=== PATIENT | male | born 1960 | race Caucasian/White ===

== ENCOUNTER 2019-06-07 12:14 | Emergency (ER) | payer SELFPAY ==
[2019-06-07] VITALS (32 sets, daily range): BP systolic 116–165; BP diastolic 79–107; PULSE 65–96; RESP 5–18; TEMP 36.9; O2SAT 91–99
--- NOTE | ~2019-06-07 | CT_ITS ---
EXAMINATION: CT abdomen pelvis wo con DATE: 06/07/2019 16:16 INDICATION: Abdominal pain TECHNIQUE: Computed tomography (CT) of the abdomen and pelvis was performed without intravenous contr ast. Automated exposure control and iterative reconstruction technique were employed. Exam dose: 151 3.85 mGy-cm total exam DLP. COMPARISON: None. FINDINGS: There is moderately prominent bilateral primarily dependent lower lobe atelectasis. Status post sternotomy. Coronary artery atherosclerosis. Small sliding hiatal hernia. There is a 5 mm upper pole nonobstructing right renal calculus. There is a 3 x 9 millimeter nonobstru cting mid right renal calculus and 2 mm nonobstructing lower pole right renal calculus. No left urina ry tract or right ureteral or urinary bladder calculus. No hydronephrosis of either kidney. There is approximately 11 mm lower pole left exophytic probable renal cyst. Otherwise no hepatic, splenic, pancreatic, and adrenal or renal space-occupying mass lesion is eviden t. There is mild peripancreatic fat stranding suggesting pancreatitis. No pancreatic calcifications. Splenic size is within normal range. Status post cholecystectomy. No bile duct or pancreatic duct dilatation is evident. Normal caliber of the abdominal aorta and iliac arteries, with atherosclerotic calcifications. No int raperitoneal or retroperitoneal or pelvic mass lesion or adenopathy or ascites is evident. Diverticulosis of the left colon; no CT evidence of diverticulitis. Normal appendix. No bowel obstruc tion or intraperitoneal free air. IMPRESSION: Mild peripancreatic fat stranding suggesting pancreatitis Small sliding hiatal hernia Status post cholecystectomy Nonobstructive right nephrolithiasis Left renal 11 mm exophytic cyst Diverticulosis of the left colon; no CT evidence of diverticulitis Reviewed, dictated and finalized at [facility] Reviewed, dictated and finalized at [facility].
[2019-06-07 12:24] LABS: Glucose Point of Care 372 (65-105)
--- NOTE | 2019-06-07 12:31 | ED.RECABL ---
HPI - Recheck/Abnormal Lab/Rx General Chief Complaint: Recheck/Abnormal Lab/Rx <Doc Currie DO - Last Filed: 06/07/19 15:52> Stated Complaint: high bs <Doc Currie DO - Last Filed: 06/07/19 15:52> Time Seen by Provider: 06/07/19 12:16 <Doc Currie DO - Last Filed: 06/07/19 15:52> Source: patient and RN notes reviewed <Doc Currie DO - Last Filed: 06/07/19 15:52> Mode of arrival: ambulatory <Doc Currie DO - Last Filed: 06/07/19 15:52> Limitations: no limitations <Doc Currie DO - Last Filed: 06/07/19 15:52> History of Present Illness HPI narrative: Pt is a 59 y/o male with a Hx of DM and HTN, who presents to the ED with c/o hyperglycemia. He notes that he lost his insurance at the end of April, and states that he has been without his normal medications for the past 3 weeks. Pt notes that he is prescribed Jardiance, Metformin, and Tresiba for his diabetes. Pt notes that his BS has been elevated recently, and states that his BS was too high for his home BS monitor to interpret this morning. He notes that he called his PCP due to his hyperglycemia, and states that he was advised to come to the ED. Pt reports constipation for the past week, but denies any fever or chills. According to the nurse, the pt also reports suicidal ideations. Thank states he has been having thoughts of harming himself for the past 2 weeks. Denies any plan and denies any attempt at harming himself <Doc Currie DO - Last Filed: 06/07/19 15:52> MD complaint: abnormal lab <Doc Currie DO - Last Filed: 06/07/19 15:52> Returns today for: other (elevated blood glucose on home blood glucose monitor) <Doc Currie DO - Last Filed: 06/07/19 15:52> Associated symptoms: other (constipation; suicidal ideations (per nurse)) <Doc Currie DO - Last Filed: 06/07/19 15:52> Related Data Allergies/Adverse Reactions: Allergies Allergy/AdvReac Type Severity Reaction Status Date / Time No Known Allergies Allergy Verified 06/07/19 12:43 <Doc Corey Currie Last Filed: 06/07/19 15:52> Review of Systems Review of Systems: All systems reviewed & are unremarkable except as noted in HPI and below <Doc Currie Last Filed: 06/07/19 15:52> Gastrointestinal: Gastrointestinal: Reports constipation <Doc Corey Currie - Last Filed: 06/07/19 15:52> Psychiatric: Psychiatric: Reports suicidal ideation <Doc Currie Last Filed: 06/07/19 15:52> [facility] Past Medical History Medical History: Medical History Diabetes HTN (hypertension) Hypothyroidism <Doc Currie Last Filed: 06/07/19 15:52> Surgical History Surgical History: Surgical History Hx of cholecystectomy <Doc Corey Currie Last Filed: 06/07/19 15:52> Social History Social History: Social History Smoking status: Never smoker <Doc Currie Last Filed: 06/07/19 15:52> Exam Narrative: Exam Narrative: APPEARANCE: No acute distress, nontoxic, resting in bed EYES: EOMI HEENT: Normocephalic, atraumatic, OMM RESPIRATORY: No respiratory distress Clear to auscultation bilaterally with no rhonchi wheezing or rales. CARDIOVASCULAR: Regular rate and rhythm without murmurs rubs or gallops. ABDOMINAL: Soft, nontender, nondistended, no rebound or guarding MUSCULOSKELETAl: Moves all extremities. No clubbing, cyanosis or edema. NEURO: Awake and alert. Following commands, speech normal, no focal deficits SKIN:: Warm, dry. No rashes lesions or abrasions PSYCHIATRIC: Positive suicidal ideation, denies homicidal ideation <Doc Currie - Last Filed: 06/07/19 15:52> Course Course Emergency Course: After numerous discussions with lab and numerous specimens sent, chelsea blanchard
[2019-06-07] MEDS: SODIUM CHLORIDE 0.9% IV 1,000 ML 999 ML IV CONT ×2 (12:47→14:44)
[2019-06-07 13:02] LABS: Basophils Absolute Auto 0.1 K/mm3 (0.0-0.1); Eosinophils Absolute Auto 0.1 K/mm3 (0-0.3); Eosinophils Percent Auto 1.9 % (0-4.4); Hematocrit 37.7 % (42.0-52.0); Hemoglobin 14.1 g/dL (14.0-18.0); Immature Granulocyte Absolute 0.04 K/mm3 (0.00-0.031); Immature Granulocyte Percent A 0.6 % (0-0.5); Lymphocytes Absolute Auto 2.32 K/mm3 (0.9-3.2); Mean Corpuscular HGB Conc 37.4 g/dl (32-36); Mean Corpuscular Hemoglobin 30.9 pg (26-34); Mean Corpuscular Volume 82.7 fl (80-100); Monocytes Absolute Auto 0.4 K/mm3 (0.1-0.6); Monocytes Percent Auto 5.6 % (2.6-8.5); Neutrophils Absolute Auto 4.3 K/mm3 (1.3-6.7); Neutrophils Percent Auto 58.9 % (45.5-73.1); Platelet Count Result 164 k/mm3 (150-375); Red Blood Count 4.56 M/mm3 (4.6-6.20); Red Cell Distribution Width 14.3 % (11.5-14.5); White Blood Count 7.3 K/mm3 (4.5-10.0)
[2019-06-07 14:17] LABS: Add Urine Microscopic? YES; Appearance Urine Clear (Clear); Bacteria Urine Trace /hpf; Bilirubin Urine Negative (Negative); Blood Urine Negative (Negative); Color Urine Yellow (Yellow); Glucose Urine UA 3+ mg/dL (Negative); Ketones Urine Trace mg/dL (Negative); Leukocyte Esterase Ur Negative LEU/UL (Negative); Mucus Urine Rare /lpf; Nitrate Urine Negative (Negative); Protein Urine 1+ mg/dL (Negative); RBC Urine 0-2 /hpf (0-2); Urobilinogen Urine Negative mg/dL (<2.0); WBC Urine 0-3 /hpf
[2019-06-07 14:24] LABS: Ethanol < 10 mg/dL (<10)
[2019-06-07 14:35] LABS: Amphetamine Screen Urine Negative (Negative); Barbiturate Screen Urine Negative (Negative); Benzodiazepines Screen Urine Negative (Negative); Cannabinoid Screen Urine Negative (Negative); Cocaine Screen Urine Negative (Negative); Methadone Screen Urine Negative (Negative); Opiate Screen Urine Negative (Negative); Phencyclidine Screen Urine Negative (Negative); Specific Grav Ur 1.036 (1.001-1.035)
--- NOTE | 2019-06-07 14:44 | PC.NURSE ---
Lab rejected blood for second time d/t contamination. Phlebotomy called and asked to draw.
[2019-06-07 18:41] LABS: Carbon Dioxide 24 mmol/L (22-30); Chloride 105 mmol/L (98-107); Estimated CRCL calculation 90 ml/min; Estimated Glomerular Filt Rate > 60
[2019-06-07 18:43] LABS: Blood Urea Nitrogen 16 mg/dL (8-26); Potassium 4.6 mmol/L (3.5-4.9); Sodium 134 mmol/L (138-146)
[2019-06-07 18:44] LABS: Glucose 242 mg/dL (70-105)
--- NOTE | 2019-06-07 18:49 | PC.NURSE ---
Crisis called and asked for evaluation
== END 2019-06-07 20:33 | disposition home or self-care (01) ==
PROVIDERS: Emergency Medicine; Emergency Provider Emergency Medicine; PCP Internal Medicine
DX: E11.65 Type 2 diabetes mellitus with hyperglycemia (principal); E03.9 Hypothyroidism, unspecified; I10 Essential (primary) hypertension; F32.9 Major depressive disorder, single episode, unspecified; Z79.84 Long term (current) use of oral hypoglycemic drugs
CPT/HCPCS: 36415; 74176; 80053; 80307; 81001; 82948; 83690; 84443; 85025; 96360; 96361; 99284; J7030

== ENCOUNTER 2019-06-30 03:22 | Inpatient (IN) | payer SELFPAY ==
[2019-06-30] VITALS (7 sets, daily range): BP systolic 144–179; BP diastolic 69–98; PULSE 62–82; RESP 14–21; TEMP 36.3–37.4; O2SAT 97–99; BMI 37.0
--- NOTE | ~2019-06-30 | CT_ITS ---
EXAMINATION: CT thoracic lumbar wo con EXAM DATE: 07/03/2019 16:52 INDICATION: Bilateral lower extremity weakness, right-sided sciatica. TECHNIQUE: Spiral CT thoracolumbar spine was performed without contrast. Axial, coronal and sagittal images of the thoracic spine were reviewed. Axial, coronal and sagittal images of the lumbar spine we re reviewed. The dose-length product (DLP) for this examination was 2131.46 mGy-cm. The exposure was tailored according to patient size (auto mA exposure control), and iterative reconstruction (ASIR) w as used as additional dose reduction technique. There is no prior study for comparison. FINDINGS: THORACIC SPINE: There are no acute fractures identified. The vertebral bodies are aligned in the AP d imension. There is mild thoracic disc disease with small bridging endplate osteophytes at some of the levels. There is lower cervical fusion hardware. Vertebral body heights are maintained. There is mil d to moderate neural foraminal stenosis at some of the thoracic levels. Thoracic central canal appear s widely patent. There are no osteoblastic or osteolytic lesions identified. Several right renal sto philomena measuring up to 8 mm in size. No hydronephrosis. There is small sliding gastroesophageal hiatal h ernia. Paraspinal soft tissue otherwise unremarkable. Sternotomy wires. LUMBAR SPINE: Sacrum, sacroiliac joints are intact. There is no thoracolumbar scoliosis. There is n o evidence of acute lumbar fracture or spondylolysis. The vertebral bodies are aligned in the AP dime nsion. Paraspinal soft tissue is unremarkable. Mild diffuse lumbar disc disease, mild to moderate lower lumbar facet arthropathy, at L4-5 and L5-S1. There is moderate bilateral neural foraminal steno sis at L5-S1, Mild narrowing at L4-5 bilaterally. No more than mild lumbar central canal stenosis. M ild sigmoid diverticulosis. IMPRESSION: 1. Overall mild thoracolumbar spondylosis without significant central canal stenosis. 2. L5-S1 moderate bilateral neural foraminal stenosis. Lesser spondylosis at other levels. 3. Right nephrolithiasis. Reviewed, dictated and finalized at location [facility]. IMPRESSION: 1. Overall mild thoracolumbar spondylosis without significant central canal st enosis. 2. L5-S1 moderate bilateral neural foraminal stenosis. Lesser spondylosis at o ther levels. 3. Right nephrolithiasis.
--- NOTE | ~2019-06-30 | CT_ITS ---
EXAMINATION: CT brain wo con DATE: 06/30/2019 07:51 INDICATION: Fall with posterior head injury TECHNIQUE: Computed tomography (CT) of the head was performed without intravenous contrast. Sagittal and coronal reconstructions were performed. The mA was adjusted according to patient size. Iterative reconstruction technique was employed. The dose-length product was 681.00 mGy-cm. COMPARISON: None FINDINGS: No fracture. No acute intracranial hemorrhage, acute infarction or abnormal extra axial fluid collect ion. Ventricles are normal and symmetric. No mass/mass effect. There is very mild scattered white mat ter hypoattenuation consistent with chronic small vessel ischemic disease. The orbits, paranasal sinu ses and mastoid air cells are normal. Intracranial calcified cerebral atherosclerosis is noted. IMPRESSION: 1. No fracture or acute intracranial process. 2. Very mild scattered white matter hypoattenuation consistent with chronic small vessel ischemic dis ease. Reviewed, dictated and finalized at location [facility]. IMPRESSION: 1. No fracture or acute intracranial process. 2. Very mild scattered white matter hypoattenuation consistent with chronic sma ll vessel ischemic disease.
--- NOTE | ~2019-06-30 | XR_ITS ---
EXAMINATION: XR chest 1V DATE: 06/30/2019 08:00 INDICATION: Dizziness post fall with posterior head injury TECHNIQUE: frontal view of the chest was obtained. COMPARISON: None FINDINGS: No focal airspace opacities, pulmonary edema, pleural effusion or pneumothorax. The cardiomediastinal silhouette is within normal limits for AP technique. Median sternotomy wires and mediastinal surgica l clips are seen, likely from prior coronary artery bypass grafting. Plate and screw fixation for low er cervical anterior spinal fusion. IMPRESSION: 1. No acute cardiopulmonary disease. Reviewed, dictated and finalized at location [facility].
--- NOTE | 2019-06-30 03:56 | ECG_ITS ---
Measurements Intervals [place] Rate: 80 P: 59 TN: 145 QRS: 78 QRSD: 129 T: -25 QT: 398 QTc: 459 Interpretive Statements SINUS RHYTHM INTRAVENTRICULAR CONDUCTION DELAY DELAYED PRECORDIAL R/S TRANSITION MINIMAL Q WAVES- INFERIOR LEADS BORDERLINE ST-T WAVE ABNORMALITY- ANTEROLAT/INF LEADS BASELINE ARTIFACT- V6 ABNORMAL ECG Electronically Signed On 06-30-2019 7:15:14 CDT by Jamaal Harkins D.O.
--- NOTE | 2019-06-30 03:57 | ED.FALL ---
HPI - Fall General Chief Complaint: Fall <Beltran Sanz MD - Last Filed: 07/06/19 07:12> Stated Complaint: fall <Beltran Sanz MD - Last Filed: 07/06/19 07:12> Time Seen by Provider: 06/30/19 03:38 <Beltran Sanz MD - Last Filed: 07/06/19 07:12> History of Present Illness HPI Narrative: 59 yo male w/ h/o DM, depression presents to the ED c/o multiple falls. He says that he lost his job and health insurance in april and has not had his DM medications since that time. Ever since then he reports bilateral leg weakness, which has been getting worse. Today he fell 5 times and after then last fall he called EMS because he was not able to get up on his own. He was seen here about 3 weeks ago for elevated blood sugar and depression. He has an appointment to see a new PCP this wednesday. <Beltran Sanz MD - Last Filed: 07/06/19 07:12> Related Data Home Medications: Home Medications Medication Instructions Recorded Confirmed aspirin 81 mg PO DAILY 06/30/19 06/30/19 empagliflozin [Jardiance] 25 mg PO DAILY 06/30/19 06/30/19 insulin degludec [Tresiba 60 unit SUBCUT DAILY 06/30/19 06/30/19 FlexTouch U-200] levothyroxine 200 mcg PO DAILY 06/30/19 06/30/19 lisinopril 20 mg PO BID 06/30/19 06/30/19 metformin 1,000 mg PO BID 06/30/19 06/30/19 sertraline 50 mg PO DAILY 06/30/19 06/30/19 sertraline 100 mg PO DAILY 06/30/19 06/30/19 simvastatin 40 mg PO DAILY 06/30/19 06/30/19 <Beltran Sanz MD - Last Filed: 07/06/19 07:12> Allergies/Adverse Reactions: Allergies Allergy/AdvReac Type Severity Reaction Status Date / Time No Known Allergies Allergy Verified 06/30/19 03:34 <Beltran Sanz MD - Last Filed: 07/06/19 07:12> Review of Systems Review of Systems: All systems reviewed & are unremarkable except as noted in HPI and below <Beltran Sanz MD - Last Filed: 07/06/19 07:12> Constitutional: Constitutional: Denies fever(s) and Reports weakness <Beltran Sanz MD - Last Filed: 07/06/19 07:12> Eyes: Eyes: Denies change in vision <Beltran Sanz MD - Last Filed: 07/06/19 07:12> ENT: Denies dizziness <Beltran Sanz MD - Last Filed: 07/06/19 07:12> Cardiovascular: Cardiovascular: Denies chest pain <Beltran Sanz MD - Last Filed: 07/06/19 07:12> Respiratory: Respiratory: Denies dyspnea <Beltran Sanz MD - Last Filed: 07/06/19 07:12> Gastrointestinal: Gastrointestinal: Reports abdominal pain and Reports constipation <Beltran Sanz MD - Last Filed: 07/06/19 07:12> Genitourinary: Genitourinary: Denies hematuria and Denies dysuria <Beltran Sanz MD - Last Filed: 07/06/19 07:12> Neurologic: Denies focal weakness, Reports numbness and Reports weakness <Beltran Sanz MD - Last Filed: 07/06/19 07:12> Psychiatric: Psychiatric: Reports depression <Beltran Sanz MD - Last Filed: 07/06/19 07:12> [facility] Past Medical History Medical History: Medical History (Updated 07/05/19 @ 13:48 by Karthik Torrez MD) Depression Diabetes Dx 2016 HTN (hypertension) Dx 2009 Hyperlipidemia Hypothyroidism Dx 1974 after JOYCE for hyperthyroidism JOSH (obstructive sleep apnea) Recovering alcoholic quit drinking 1989 Type 2 diabetes mellitus with diabetic neuropathy <Beltran Sanz MD - Last Filed: 07/06/19 07:12> Surgical History Surgical History: Surgical History (Updated 06/30/19 @ 12:59 by Zenon Lew MD) Hx of cholecystectomy S/P CABG x 1 2009 <Beltran Sanz MD - Last Filed: 07/06/19 07:12> Family History Family History: Family History (Updated 05/01/20 @ 13:02 by Zenon Lew MD) Father Diabetes mellitus Heart disease Mother Heart disease Cerebrovascular accident Diabetes mellitus <Beltran Sanz MD - Last Filed: 07/06/19 07:12> Social History Social History: Social History (Updated 06/30/19 @ 13:04 by Zenon Lew MD) Smok
[2019-06-30 04:14] LABS: Basophils Absolute Auto 0.1 K/mm3 (0.0-0.1); Basophils Percent Auto 0.6 % (0.2-1.2); Eosinophils Absolute Auto 0.1 K/mm3 (0-0.3); Eosinophils Percent Auto 0.9 % (0-4.4); Hematocrit 35.5 % (42.0-52.0); Hemoglobin 17.2 g/dL (14.0-18.0); Immature Granulocyte Absolute 0.08 K/mm3 (0.00-0.031); Immature Platelet Fraction Pct 1.5 % (0.9-11.2); Mean Corpuscular HGB Conc 48.5 g/dl (32-36); Mean Corpuscular Hemoglobin 38.8 pg (26-34); Mean Corpuscular Volume 80.1 fl (80-100); Mean Platelet Volume 10.5 fl (7.4-10.4); Monocytes Absolute Auto 0.5 K/mm3 (0.1-0.6); Monocytes Percent Auto 5.9 % (2.6-8.5); Neutrophils Absolute Auto 6.1 K/mm3 (1.3-6.7); Neutrophils Percent Auto 75.6 % (45.5-73.1); Platelet Count Result 273 k/mm3 (150-375); Red Blood Count 4.43 M/mm3 (4.6-6.20); Red Cell Distribution Width 14.6 % (11.5-14.5); White Blood Count 8.1 K/mm3 (4.5-10.0)
[2019-06-30] MEDS: SODIUM CHLORIDE 0.9% IV 1,000 ML 999 ML IV CONT ×3 (04:22→07:06)
[2019-06-30 05:08] LABS: Amphetamine Screen Urine Negative (Negative); Barbiturate Screen Urine Negative (Negative); Benzodiazepines Screen Urine Negative (Negative); Cannabinoid Screen Urine Negative (Negative); Cocaine Screen Urine Negative (Negative); Methadone Screen Urine Negative (Negative); Opiate Screen Urine Negative (Negative); Phencyclidine Screen Urine Negative (Negative)
[2019-06-30 05:11] LABS: Add Urine Microscopic? YES; Appearance Urine Clear (Clear); Bacteria Urine Trace /hpf; Bilirubin Urine Negative (Negative); Blood Urine 1+ (Negative); Color Urine Straw (Yellow); Glucose Urine UA 3+ mg/dL (Negative); Ketones Urine Negative (Negative); Leukocyte Esterase Ur Negative LEU/UL (Negative); Nitrate Urine Negative (Negative); Protein Urine 1+ mg/dL (Negative); RBC Urine 0-2 /hpf (0-2); Specific Grav Ur 1.029 (1.001-1.035); Urobilinogen Urine Negative mg/dL (<2.0); WBC Urine 0-3 /hpf
[2019-06-30 05:28] LABS: Estimated CRCL calculation 75 ml/min; Estimated Glomerular Filt Rate > 60; Potassium 4.5 mmol/L (3.5-4.9); Sodium 124 mmol/L (138-146)
[2019-06-30 05:29] LABS: Blood Urea Nitrogen 36 mg/dL (8-26); Chloride 94 mmol/L (98-109)
[2019-06-30 05:31] LABS: Glucose 521 mg/dL (75-110)
[2019-06-30] MEDS: INSULIN HUMAN REGULAR (*BKC) 100 UNITS/ML 10 UNITS IV PUSH (06:19)
[2019-06-30 07:02] LABS: Glucose Point of Care 347 (65-105)
[2019-06-30 07:24] LABS: Alveolar/Arterial O2 Gradient 31.9 mmHg; Base Excess ABG -2.7 mEq/l (+/-2.0); Fractional Inspired Oxygen 21 %; HCO3 ABG 21.9 mEq/l (22.0-26.0); Oxygen Content ABG 16.4 %vol (16.0-22.0); Oxygen Saturation ABG 94.6 % (95.0-100.0); Oxyhemoglobin 93.8 % THb (90.0-100.0); PCO2 ABG 37.4 mmHg (35.0-45.0); PO2 FiO2 Ratio Arterial Blood 3.48 %; Total Hemoglobin 12.4 g/dL (12.0-18.0); pH ABG 7.385 (7.350-7.450)
[2019-06-30 07:26] LABS: Device ROOM AIR; Modified Allen's Test Pass; Site Drawn RIGHT RADIAL
--- NOTE | 2019-06-30 07:36 | PC.NURSE ---
ASSUMED PT CARE FROM ERIKA FERRO, WILL REASSESS BLOOD GLUCOSE AFTER NS IS INFUSED. PT RESTING QUIETLY IN BED, VSS.
[2019-06-30 08:08] LABS: Glucose Point of Care 369 (65-105)
--- NOTE | 2019-06-30 08:08 | PC.NURSE ---
ERP BENITA INFORMED OF PT GLUCOSE READING.
[2019-06-30 09:05] LABS: Glucose Point of Care 295 (65-105)
--- NOTE | 2019-06-30 09:06 | PC.NURSE ---
ATTEMPTED TO CALL REPORT, UNIT SEC ON 3 MEDICAL STATES THAT RN IS DISCHARGING A PATIENT AND WILL CALL BACK.
--- NOTE | 2019-06-30 09:25 | ADMGEN ---
This patient, Leeroy Schaefer, was admitted to Medical Room 344-01. Patient/family oriented to hospital policies and general routines including ID bracelet, bed and alarms, visiting hours, pain management, procedures, bathroom and other care routines, personal items, smoking policy, room service/diet, and visiting hours. Valuables list has been completed. Information on how to activate the Rapid Response Team has been discussed. Patient/Family are encouraged to report perceived risks to care and to ask questions if they do not understand what they are told or what they should do.
[2019-06-30] MEDS: SODIUM CHLORIDE 0.9% IV 1,000 ML 125 ML IV CONT ×2 (09:50→17:55)
[2019-06-30 11:28] LABS: Glucose Point of Care 287 (65-105)
--- NOTE | 2019-06-30 12:08 | PM.IMHP ---
H&P: HPI History of Present Illness Chief complaint: Hyperglycemia,hyponatremia, with weakness Narrative: Leeroy Schaefer is a 59 year old male who was diagnosed with type 2 diabetes about 3 years ago. His blood sugars have been difficult for his controlled even when he has his insulin. They generally 1 200-220 fasting. Without his insulin 350 or above. He has had about 3 years of numbness and tingling in his feet legs. About 7 weeks ago he lost his job because of attendance issues. He has had no insulin for that period of time. He also ran out of other medications soon after that. About 3 weeks ago he noted increased numbness and tingling in his legs. He began falling about 3 weeks ago. Intermittent. Seem to be worsening. Legs feel tight. Difficult to tell with a or in space. On 06/28 he fell in the morning. He fell 4 times at night while trying to go to the bathroom. He has been constipated for about 7 weeks as well. No better in spite of using an enema yesterday. Vision has been a bit blurred. He is overdue for his annual diabetic eye exam. Urination has been frequent. Sensation of incomplete emptying. Slow stream. No dysuria. Denied chest pain or shortness of breath or edema. Denied abnormal bleeding. No rash or itching. Review of Systems Review of Systems: All systems reviewed & are unremarkable except as noted in HPI and below PMFSH Past Medical History Medical History (Updated 06/30/19 @ 15:08 by Zenon Lew MD) Depression Diabetes Dx 2017 HTN (hypertension) Dx 2009 Hyperlipidemia Hypothyroidism Dx 1974 after JOYCE for hyperthyroidism JOSH (obstructive sleep apnea) Recovering alcoholic quit drinking 1989 Type 2 diabetes mellitus with diabetic neuropathy Surgical History Surgical History (Updated 06/30/19 @ 12:59 by Zenon Lew MD) Hx of cholecystectomy S/P CABG x 1 2009 Family History Family History (Updated 06/30/19 @ 13:02 by Zenon Lew MD) Father Diabetes mellitus Heart disease Mother Heart disease Cerebrovascular accident Diabetes mellitus Social History Social History (Updated 06/30/19 @ 13:04 by Zenon Lew MD) Smoking packs per day: 2 Smoking cigarettes per day: 40.0 Years smoked: 20 Smoking pack-years: 40.00 Smoking status: Former smoker Smoking end date: 06/28/09 Alcohol intake: former Alcohol use details: Heavy drinker until 1989. Substance use: former Living arrangements: alone Additional living arrangements comments: . Lives alone in small house. Occupation/Education: unemployed Additional occupation/education comments: Lost job in late April,. Spiritual care concerns: No Agree to blood products: Yes Meds Home Medications and Allergies Home Medications Medication Instructions Recorded Confirmed Type aspirin 81 mg PO DAILY 06/30/19 06/30/19 History empagliflozin [Jardiance] 25 mg PO DAILY 06/30/19 06/30/19 History insulin degludec [Tresiba 60 unit SUBCUT DAILY 06/30/19 06/30/19 History FlexTouch U-200] levothyroxine 200 mcg PO DAILY 06/30/19 06/30/19 History lisinopril 20 mg PO BID 06/30/19 06/30/19 History metformin 1,000 mg PO BID 06/30/19 06/30/19 History sertraline 50 mg PO DAILY 06/30/19 06/30/19 History sertraline 100 mg PO DAILY 06/30/19 06/30/19 History simvastatin 40 mg PO DAILY 06/30/19 06/30/19 History Allergies Allergy/AdvReac Type Severity Reaction Status Date / Time No Known Allergies Allergy Verified 06/30/19 03:34 Vital Signs Vital Signs - 24 hr 06/30/19 03:22 06/30/19 06:27 06/30/19 07:34 Temperature 99.3 F Pulse Rate 82 79 80 Respiratory Rate 15 16 21 H Blood Pressure 159/98 H 179/94 H 144/92 H Pulse Oximetry 97 99 99 06/30/19 09:14 Temperature Pulse Rate 77 Respiratory Rate 17 Blood Pressure 144/92 H Pulse Oximetry 99 Exam Narrative: Exam Narrative: HEENT: EOMI, PERRL, sclerae nonicteric, pharyngeal mucosa
[2019-06-30] MEDS: SERTRALINE HCL 50 MG TABLET 150 MG PO (13:58)
[2019-06-30] MEDS: lisinopriL 20 MG TABLET PO ×2 (13:59→20:41)
[2019-06-30] MEDS: ASPIRIN 81 MG CHEWABLE TABLET PO (13:59)
[2019-06-30] MEDS: KETOROLAC 30 MG/ML VIAL (*BKC) IV PUSH (14:02)
[2019-06-30 14:10] LABS: Glucose Point of Care 358 (65-105)
[2019-06-30] MEDS: INSULIN ASPART (*BKC) 100 UNITS/ML SUB-Q ×2 (14:11→16:54)
[2019-06-30] MEDS: GABAPENTIN 300 MG CAPSULE PO ×2 (14:50→17:55)
[2019-06-30 16:31] LABS: Glucose Point of Care 294 (65-105)
[2019-06-30] MEDS: metFORMIN HCL 500 MG TABLET 1000 MG PO (16:50)
[2019-06-30] MEDS: SENNOSIDES 8.6 MG TABLET PO (16:50)
[2019-06-30] MEDS: BISACODYL 5 MG TABLET EC 10 MG PO (16:52)
[2019-06-30] MEDS: SIMVASTATIN 20 MG TABLET 40 MG PO (20:41)
[2019-06-30 21:53] LABS: Glucose Point of Care 306 (65-105)
[2019-06-30 21:53] LABS: Glucose Point of Care > 500 (65-105)
[2019-06-30] MEDS: INSULIN ASPART (*BKC) 100 UNITS/ML 6 UNITS SUB-Q (23:14)
[2019-06-30] MEDS: INSULIN DETEMIR 100 UNITS/ML 60 UNITS SUB-Q (23:14)
[2019-07-01 04:37] VITALS: BP 97/59; PULSE 73; RESP 16; TEMP 37; O2SAT 98
[2019-07-01 06:25] LABS: Basophils Percent Auto 0.6 % (0.2-1.2); Eosinophils Absolute Auto 0.1 K/mm3 (0-0.3); Hematocrit 31.2 % (42.0-52.0); Hemoglobin 12.8 g/dL (14.0-18.0); Immature Granulocyte Absolute 0.04 K/mm3 (0.00-0.031); Immature Granulocyte Percent A 0.6 % (0-0.5); Lymphocytes Absolute Auto 1.61 K/mm3 (0.9-3.2); Lymphocytes Percent Auto 24.4 % (18.3-44.2); Mean Platelet Volume 10.4 fl (7.4-10.4); Monocytes Absolute Auto 0.3 K/mm3 (0.1-0.6); Monocytes Percent Auto 5.1 % (2.6-8.5); Neutrophils Absolute Auto 4.5 K/mm3 (1.3-6.7); Neutrophils Percent Auto 67.3 % (45.5-73.1); Platelet Count Result 186 k/mm3 (150-375); Red Blood Count 3.76 M/mm3 (4.6-6.20); White Blood Count 6.6 K/mm3 (4.5-10.0)
[2019-07-01] MEDS: LEVOTHYROXINE SODIUM 100 MCG TABLET 200 MCG PO (06:35)
[2019-07-01 07:56] LABS: Glucose Point of Care 266 (65-105)
[2019-07-01] MEDS: INSULIN ASPART (*BKC) 100 UNITS/ML SUB-Q ×3 (08:08→17:27)
[2019-07-01] MEDS: SERTRALINE HCL 50 MG TABLET 150 MG PO (08:14)
[2019-07-01] MEDS: ASPIRIN 81 MG CHEWABLE TABLET PO (08:14)
[2019-07-01] MEDS: SENNOSIDES 8.6 MG TABLET PO ×2 (08:15→17:32)
[2019-07-01] MEDS: metFORMIN HCL 500 MG TABLET 1000 MG PO ×2 (08:15→17:31)
[2019-07-01] MEDS: GABAPENTIN 300 MG CAPSULE PO ×3 (08:15→17:31)
[2019-07-01 08:32] LABS: Glucose 277 mg/dL (75-110)
[2019-07-01 08:33] LABS: Chloride 101 mmol/L (98-109); Potassium 5.2 mmol/L (3.5-4.9); Sodium 127 mmol/L (138-146)
[2019-07-01 08:34] LABS: Blood Urea Nitrogen 24 mg/dL (8-26); Calcium 7.9 mg/dL (8.4-10.2); Estimated CRCL calculation 99 ml/min; Estimated Glomerular Filt Rate > 60
[2019-07-01 09:18] LABS: Glucose Point of Care 383 (65-105)
[2019-07-01] MEDS: INSULIN HUMAN NPH (*BKC) 100 UNITS/ML 30 UNITS SUB-Q ×2 (09:49→17:23)
[2019-07-01] MEDS: MAGNESIUM CITRATE 300 ML BTL PO (10:00)
[2019-07-01] MEDS: SODIUM CHLORIDE 0.9% IV 1,000 ML 125 ML IV CONT ×2 (10:36→20:29)
[2019-07-01 11:40] LABS: Glucose Point of Care 339 (65-105)
--- NOTE | 2019-07-01 12:34 | P.PNIM_ITS ---
Progress Note: A&P Assessment and Plan (1) Type 2 diabetes mellitus with hyperglycemia: Qualifiers: Diabetes mellitus correction insulin use: with correction use Qualified Code(s): E11.65 - Type 2 diabetes mellitus with hyperglycemia; Z79.4 - MCC (current) use of insulin Code(s): E11.65 - Type 2 diabetes mellitus with hyperglycemia Status: Acute Assessment and Plan: * IV saline * 1 dose of IV insulin in emergency department * Diabetic diet * Basal (5/2 change to NPH BID) and sliding scale insulin * Discharge regimen to include cost effective insulin and oral agents * May need rehab due to gait impairment * He is currently temporarily, possibly permanently, disabled * CC consult (2) Type 2 diabetes mellitus with diabetic neuropathy: Qualifiers: Diabetes mellitus correction insulin use: with termination clerk use Qualified Code(s): E11.40 - Type 2 diabetes mellitus with diabetic neuropathy, unspecified; Z79.4 - MCC (current) use of insulin Code(s): E11.40 - Type 2 diabetes mellitus with diabetic neuropathy, unspecified Status: Acute Assessment and Plan: * Glycemic control * Gabapentin (3) Hyponatremia: Code(s): E87.1 - Hypo-osmolality and hyponatremia Status: Acute Assessment and Plan: * Most of this is attributable will to a blood sugar over 500 * Improving with hydration and glycemic control (4) Gait instability: Code(s): R26.81 - Unsteadiness on feet Status: Acute Assessment and Plan: * Likely due to diabetic neuropathy * Consider imaging of LS spine if he does not continue improving * Check B12 (5) Tinea pedis: Qualifiers: Laterality: unspecified laterality Qualified Code(s): B35.3 - Tinea pedis Code(s): B35.3 - Tinea pedis Status: Acute Assessment and Plan: * In part due to hyperglycemia * Topical miconazole (6) JOSH (obstructive sleep apnea): Code(s): G47.33 - Obstructive sleep apnea (adult) (pediatric) Status: Acute Assessment and Plan: * Continue home CPAP (7) Anemia: Qualifiers: Anemia type: unspecified type Qualified Code(s): D64.9 - Anemia, unspecified Code(s): D64.9 - Anemia, unspecified Status: Acute Assessment and Plan: * Hemoglobin decreased from 17 to just below 13 with hydration * Blood loss clinically unlikely * Exclude nutritional deficiency * Hemolysis clinically unlikely (8) Depression: Qualifiers: Depression Type: unspecified Qualified Code(s): F32.9 - Major depressive disorder, single episode, unspecified Code(s): F32.9 - Major depressive disorder, single episode, unspecified Status: Acute Assessment and Plan: * Continue sertraline (9) Hyperlipidemia: Qualifiers: Hyperlipidemia type: unspecified Qualified Code(s): E78.5 - Hyperlipidemia, unspecified Code(s): E78.5 - Hyperlipidemia, unspecified Status: Acute Assessment and Plan: -*- -Glycemic control * Continue simvastatin Subjective Date/time seen: 07/01/19 12:34 Interval history: Admitted 06/29 with hyperglycemia and gait impairment. 06/30 able to stand at bedside. Tolerating diet. Less pain. Feeling better overall. Still constipated Denied back pain. Denied chest pain or shortness of breath or edema. Review of Systems Review of Systems: All systems reviewed & are unremarkable except as noted in HPI and below
--- NOTE | 2019-07-01 12:34 | PM.IMPN ---
Progress Note: A&P Assessment and Plan (1) Type 2 diabetes mellitus with hyperglycemia: Qualifiers: Diabetes mellitus halfway insulin use: with halfway use Qualified Code(s): E11.65 - Type 2 diabetes mellitus with hyperglycemia; Z79.4 - snf (current) use of insulin Code(s): E11.65 - Type 2 diabetes mellitus with hyperglycemia Status: Acute Assessment and Plan: IV saline 1 dose of IV insulin in emergency department Diabetic diet Basal (5/2 change to NPH BID) and sliding scale insulin Discharge regimen to include cost effective insulin and oral agents May need rehab due to gait impairment He is currently temporarily, possibly permanently, disabled CC consult (2) Type 2 diabetes mellitus with diabetic neuropathy: Qualifiers: Diabetes mellitus halfway insulin use: with halfway use Qualified Code(s): E11.40 - Type 2 diabetes mellitus with diabetic neuropathy, unspecified; Z79.4 - snf (current) use of insulin Code(s): E11.40 - Type 2 diabetes mellitus with diabetic neuropathy, unspecified Status: Acute Assessment and Plan: Glycemic control Gabapentin (3) Hyponatremia: Code(s): E87.1 - Hypo-osmolality and hyponatremia Status: Acute Assessment and Plan: Most of this is attributable will to a blood sugar over 500 Improving with hydration and glycemic control (4) Gait instability: Code(s): R26.81 - Unsteadiness on feet Status: Acute Assessment and Plan: Likely due to diabetic neuropathy Consider imaging of LS spine if he does not continue improving Check B12 (5) Tinea pedis: Qualifiers: Laterality: unspecified laterality Qualified Code(s): B35.3 - Tinea pedis Code(s): B35.3 - Tinea pedis Status: Acute Assessment and Plan: In part due to hyperglycemia Topical miconazole (6) JOSH (obstructive sleep apnea): Code(s): G47.33 - Obstructive sleep apnea (adult) (pediatric) Status: Acute Assessment and Plan: Continue home CPAP (7) Anemia: Qualifiers: Anemia type: unspecified type Qualified Code(s): D64.9 - Anemia, unspecified Code(s): D64.9 - Anemia, unspecified Status: Acute Assessment and Plan: Hemoglobin decreased from 17 to just below 13 with hydration Blood loss clinically unlikely Exclude nutritional deficiency Hemolysis clinically unlikely (8) Depression: Qualifiers: Depression Type: unspecified Qualified Code(s): F32.9 - Major depressive disorder, single episode, unspecified Code(s): F32.9 - Major depressive disorder, single episode, unspecified Status: Acute Assessment and Plan: Continue sertraline (9) Hyperlipidemia: Qualifiers: Hyperlipidemia type: unspecified Qualified Code(s): E78.5 - Hyperlipidemia, unspecified Code(s): E78.5 - Hyperlipidemia, unspecified Status: Acute Assessment and Plan: Glycemic control Continue simvastatin Subjective Date/time seen: 07/01/19 12:34 Interval history: Admitted 06/29 with hyperglycemia and gait impairment. 06/30 able to stand at bedside. Tolerating diet. Less pain. Feeling better overall. Still constipated Denied back pain. Denied chest pain or shortness of breath or edema. Review of Systems Review of Systems: All systems reviewed & are unremarkable except as noted in HPI and below Exam Narrative: Exam Narrative: HEENT: EOMI, PERRL, sclerae nonicteric, pharyngeal mucosa pink and intact NECK: No JVD CHEST: Clear to auscultation. Normal effort. HEART: NL S1/S2, regular, no murmur ABDOMEN: BS+, soft, nontender, no mass, no bruits EXTREMITIES: No cyanosis, edema, or clubbing NEUROLOGIC: CN intact and symmetric to inspection. MUSCULOSKELETAL: Tone and strength symmetric. PSYCH: Alert. Oriented to person, place, and time. Objective Data Vital Signs Vital S
[2019-07-01 14:00] VITALS: BP 107/54; PULSE 66; RESP 16; TEMP 35.8; O2SAT 96
[2019-07-01 16:38] LABS: Glucose Point of Care 281 (65-105)
[2019-07-01] MEDS: SIMVASTATIN 20 MG TABLET 40 MG PO (20:21)
[2019-07-01 20:27] LABS: Glucose Point of Care 246 (65-105)
[2019-07-01 21:04] VITALS: BP 150/93; PULSE 64; RESP 16; TEMP 36.4; O2SAT 96
[2019-07-01 22:51] LABS: IFOB Positive Control Positive; Immunochemical Fecal Occult Bl Negative (N)
[2019-07-02 03:48] VITALS: BP 148/78; PULSE 60; RESP 16; TEMP 36.7; O2SAT 97
[2019-07-02] MEDS: SODIUM CHLORIDE 0.9% IV 1,000 ML 125 ML IV CONT (05:27)
[2019-07-02 05:35] LABS: Hematocrit 28.6 % (42.0-52.0); Hemoglobin 10.7 g/dL (14.0-18.0); Immature Reticulocyte Fraction 7.9 % (3.0-15.9); Mean Corpuscular HGB Conc 37.4 g/dl (32-36); Mean Corpuscular Hemoglobin 31.9 pg (26-34); Mean Corpuscular Volume 85.4 fl (80-100); Mean Platelet Volume 9.4 fl (7.4-10.4); Platelet Count Result 142 k/mm3 (150-375); Red Blood Count 3.35 M/mm3 (4.6-6.20); Reticulocyte Hemoglobin Conten 34.9 pg (28.2-35.7); Reticulocytes Absolute 0.09 B/L (32.2-175.7); White Blood Count 6.3 K/mm3 (4.5-10.0)
[2019-07-02] MEDS: LEVOTHYROXINE SODIUM 100 MCG TABLET 200 MCG PO (06:03)
[2019-07-02 06:26] LABS: Glucose Point of Care 111 (65-105)
[2019-07-02 06:44] LABS: Iron 68 ug/dL (49-181)
[2019-07-02 06:51] LABS: Percent Iron Saturation 29 % (20-50)
[2019-07-02 07:17] LABS: Reticulocyte Percent 2.68 % (0.7-4.3)
[2019-07-02 07:40] VITALS: BP 138/72
[2019-07-02] MEDS: INSULIN HUMAN NPH (*BKC) 100 UNITS/ML 30 UNITS SUB-Q ×2 (07:47→16:33)
[2019-07-02 07:58] LABS: Blood Urea Nitrogen 13 mg/dL (9-20); Calcium 6.8 mg/dL (8.4-10.2); Chloride 112 mmol/L (98-107); Estimated CRCL calculation 145 ml/min; Estimated Glomerular Filt Rate > 60; Glucose 90 mg/dL (75-110); Sodium 133 mmol/L (137-145)
[2019-07-02 08:12] LABS: Glucose Point of Care 106 (65-105)
[2019-07-02] MEDS: SENNOSIDES 8.6 MG TABLET PO ×2 (08:23→16:38)
[2019-07-02] MEDS: SERTRALINE HCL 50 MG TABLET 150 MG PO (08:24)
[2019-07-02] MEDS: GABAPENTIN 300 MG CAPSULE PO ×3 (08:24→16:37)
[2019-07-02] MEDS: ASPIRIN 81 MG CHEWABLE TABLET PO (08:24)
[2019-07-02] MEDS: metFORMIN HCL 500 MG TABLET 1000 MG PO ×2 (08:24→16:37)
[2019-07-02] MEDS: lisinopriL 10 MG TABLET PO (08:55)
[2019-07-02] MEDS: ATORVASTATIN 40 MG TABLET PO (08:55)
[2019-07-02] MEDS: POTASSIUM CHLORIDE 20 MEQ TABLET 40 MEQ PO ×2 (08:55→11:46)
--- NOTE | 2019-07-02 11:39 | P.PNIM_ITS ---
Progress Note: A&P Assessment and Plan (1) Type 2 diabetes mellitus with hyperglycemia: Qualifiers: Diabetes mellitus long term care phlebotomist insulin use: with long term care phlebotomist use Qualified Code(s): E11.65 - Type 2 diabetes mellitus with hyperglycemia; Z79.4 - [facility] (current) use of insulin Code(s): E11.65 - Type 2 diabetes mellitus with hyperglycemia Status: Acute Assessment and Plan: * IV saline * 1 dose of IV insulin in emergency department * Diabetic diet * Basal (06/30 change to NPH BID) and sliding scale insulin * Discharge regimen to include cost effective insulin and oral agents * May need rehab due to gait impairment * He is currently temporarily, possibly permanently, disabled * CC consult in in progress * 07/01 FBS 106 (2) Type 2 diabetes mellitus with diabetic neuropathy: Qualifiers: Diabetes mellitus long term care phlebotomist insulin use: with jail use Qualified Code(s): E11.40 - Type 2 diabetes mellitus with diabetic neuropathy, unspecified; Z79.4 - [facility] (current) use of insulin Code(s): E11.40 - Type 2 diabetes mellitus with diabetic neuropathy, unspecified Status: Acute Assessment and Plan: * Glycemic control * Gabapentin (3) Hyponatremia: Code(s): E87.1 - Hypo-osmolality and hyponatremia Status: Acute Assessment and Plan: * Most of this is attributable will to a blood sugar over 500 * Improving with hydration and glycemic control07/01 133 (4) Gait instability: Code(s): R26.81 - Unsteadiness on feet Status: Acute Assessment and Plan: * Likely due to diabetic neuropathy * Consider imaging of LS spine if he does not continue improving * B12 WNL (5) Tinea pedis: Qualifiers: Laterality: unspecified laterality Qualified Code(s): B35.3 - Tinea pedis Code(s): B35.3 - Tinea pedis Status: Acute Assessment and Plan: * In part due to hyperglycemia * Topical miconazole (6) JOSH (obstructive sleep apnea): Code(s): G47.33 - Obstructive sleep apnea (adult) (pediatric) Status: Acute Assessment and Plan: * Continue home CPAP (7) Anemia: Qualifiers: Anemia type: unspecified type Qualified Code(s): D64.9 - Anemia, unspecified Code(s): D64.9 - Anemia, unspecified Status: Acute Assessment and Plan: * Hemoglobin decreased from 17 to just below 13 with hydration * Iron panel, B12, Folate, Retic count unremarkable * Stool for blood negative (8) Depression: Qualifiers: Depression Type: unspecified Qualified Code(s): F32.9 - Major depressive disorder, single episode, unspecified Code(s): F32.9 - Major depressive disorder, single episode, unspecified Status: Acute Assessment and Plan: * Continue sertraline (9) Hyperlipidemia: Qualifiers: Hyperlipidemia type: unspecified Qualified Code(s): E78.5 - Hyperlipidemia, unspecified Code(s): E78.5 - Hyperlipidemia, unspecified Status: Acute Assessment and Plan: -*- -Glycemic control * / Switch from simvastatin to atorvastatin Subjective Date/time seen: 07/02/19 11:39 Interval history: Admitted 06/29 with hyperglycemia and gait impairment. / Feeling stronger. Able to stand longer. Tolerating diet. Less pain in legs. Bowels moved multiple times after laxative. Denied back pain. Denied chest pain or shortness of breath or edema. Review of Systems Review of Systems: All systems reviewed
--- NOTE | 2019-07-02 11:39 | PM.IMPN ---
Progress Note: A&P Assessment and Plan (1) Type 2 diabetes mellitus with hyperglycemia: Qualifiers: Diabetes mellitus vermin exterminator insulin use: with vermin exterminator use Qualified Code(s): E11.65 - Type 2 diabetes mellitus with hyperglycemia; Z79.4 - assisted (current) use of insulin Code(s): E11.65 - Type 2 diabetes mellitus with hyperglycemia Status: Acute Assessment and Plan: IV saline 1 dose of IV insulin in emergency department Diabetic diet Basal (06/30 change to NPH BID) and sliding scale insulin Discharge regimen to include cost effective insulin and oral agents May need rehab due to gait impairment He is currently temporarily, possibly permanently, disabled CC consult in in progress 07/01 FBS 106 (2) Type 2 diabetes mellitus with diabetic neuropathy: Qualifiers: Diabetes mellitus group home insulin use: with group home use Qualified Code(s): E11.40 - Type 2 diabetes mellitus with diabetic neuropathy, unspecified; Z79.4 - terminal makeup operator (current) use of insulin Code(s): E11.40 - Type 2 diabetes mellitus with diabetic neuropathy, unspecified Status: Acute Assessment and Plan: Glycemic control Gabapentin (3) Hyponatremia: Code(s): E87.1 - Hypo-osmolality and hyponatremia Status: Acute Assessment and Plan: Most of this is attributable will to a blood sugar over 500 Improving with hydration and glycemic control07/01 133 (4) Gait instability: Code(s): R26.81 - Unsteadiness on feet Status: Acute Assessment and Plan: Likely due to diabetic neuropathy Consider imaging of LS spine if he does not continue improving B12 WNL (5) Tinea pedis: Qualifiers: Laterality: unspecified laterality Qualified Code(s): B35.3 - Tinea pedis Code(s): B35.3 - Tinea pedis Status: Acute Assessment and Plan: In part due to hyperglycemia Topical miconazole (6) JOSH (obstructive sleep apnea): Code(s): G47.33 - Obstructive sleep apnea (adult) (pediatric) Status: Acute Assessment and Plan: Continue home CPAP (7) Anemia: Qualifiers: Anemia type: unspecified type Qualified Code(s): D64.9 - Anemia, unspecified Code(s): D64.9 - Anemia, unspecified Status: Acute Assessment and Plan: Hemoglobin decreased from 17 to just below 13 with hydration Iron panel, B12, Folate, Retic count unremarkable Stool for blood negative (8) Depression: Qualifiers: Depression Type: unspecified Qualified Code(s): F32.9 - Major depressive disorder, single episode, unspecified Code(s): F32.9 - Major depressive disorder, single episode, unspecified Status: Acute Assessment and Plan: Continue sertraline (9) Hyperlipidemia: Qualifiers: Hyperlipidemia type: unspecified Qualified Code(s): E78.5 - Hyperlipidemia, unspecified Code(s): E78.5 - Hyperlipidemia, unspecified Status: Acute Assessment and Plan: Glycemic control 07/01 Switch from simvastatin to atorvastatin Subjective Date/time seen: 07/02/19 11:39 Interval history: Admitted 06/29 with hyperglycemia and gait impairment. / Feeling stronger. Able to stand longer. Tolerating diet. Less pain in legs. Bowels moved multiple times after laxative. Denied back pain. Denied chest pain or shortness of breath or edema. Review of Systems Review of Systems: All systems reviewed & are unremarkable except as noted in HPI and below Exam Narrative: Exam Narrative: HEENT: EOMI, PERRL, sclerae nonicteric, pharyngeal mucosa pink and intact NECK: No JVD CHEST: Clear to auscultation. Normal effort. HEART: NL S1/S2, regular, no murmur ABDOMEN: BS+, soft, nontender, no mass, no bruits EXTREMITIES: No cyanosis, edema, or clubbing NEUROLOGIC: CN intact and symmetric to inspection. MUSCULOSKELETAL: Tone and strength symmetric. 5/5 x4 extremities. PSYCH
[2019-07-02 12:48] LABS: Glucose Point of Care 177 (65-105)
[2019-07-02 14:10] VITALS: BP 150/71; PULSE 64; RESP 18; TEMP 36.1; O2SAT 99
[2019-07-02 16:18] LABS: Blood Urea Nitrogen 14 mg/dL (9-20); Calcium 8.6 mg/dL (8.4-10.2); Carbon Dioxide 21 mmol/L (22-30); Chloride 103 mmol/L (98-107); Estimated CRCL calculation 99 ml/min; Estimated Glomerular Filt Rate > 60; Glucose 208 mg/dL (75-110); Magnesium 1.5 mg/dL (1.6-2.3); Phosphorus 4.4 mg/dL (2.5-4.5); Sodium 132 mmol/L (137-145)
[2019-07-02] MEDS: INSULIN ASPART (*BKC) 100 UNITS/ML SUB-Q (16:31)
[2019-07-02 16:35] LABS: Glucose Point of Care 211 (65-105)
[2019-07-02 22:00] VITALS: BP 168/80; PULSE 65; RESP 21; TEMP 36.1; O2SAT 100
[2019-07-02 22:10] LABS: Glucose Point of Care 201 (65-105)
[2019-07-02] MEDS: ACETAMINOPHEN 325 MG TABLET 650 MG PO (22:18)
[2019-07-02 23:10] VITALS: PULSE 68; RESP 15; O2SAT 96
[2019-07-03] VITALS (7 sets, daily range): BP systolic 143–179; BP diastolic 64–87; PULSE 61–78; RESP 12–21; TEMP 36.1–37; O2SAT 95–100
[2019-07-03] MEDS: INSULIN HUMAN NPH (*BKC) 100 UNITS/ML 30 UNITS SUB-Q ×2 (07:17→17:19)
[2019-07-03] MEDS: LEVOTHYROXINE SODIUM 100 MCG TABLET 200 MCG PO (07:19)
[2019-07-03 07:37] LABS: Glucose Point of Care 187 (65-105)
[2019-07-03 08:42] LABS: Hematocrit 34.1 % (42.0-52.0); Hemoglobin 12.5 g/dL (14.0-18.0); Mean Corpuscular HGB Conc 36.7 g/dl (32-36); Mean Corpuscular Hemoglobin 30.7 pg (26-34); Mean Corpuscular Volume 83.8 fl (80-100); Mean Platelet Volume 9.6 fl (7.4-10.4); Platelet Count Result 181 k/mm3 (150-375); Red Blood Count 4.07 M/mm3 (4.6-6.20); Red Cell Distribution Width 14.9 % (11.5-14.5); White Blood Count 7.4 K/mm3 (4.5-10.0)
[2019-07-03 08:54] LABS: Blood Urea Nitrogen 12 mg/dL (9-20); Calcium 8.8 mg/dL (8.4-10.2); Carbon Dioxide 22 mmol/L (22-30); Chloride 99 mmol/L (98-107); Estimated CRCL calculation 99 ml/min; Estimated Glomerular Filt Rate > 60; Glucose 208 mg/dL (75-110); Magnesium 1.3 mg/dL (1.6-2.3); Potassium 3.9 mmol/L (3.4-5.0); Sodium 129 mmol/L (137-145)
[2019-07-03] MEDS: metFORMIN HCL 500 MG TABLET 1000 MG PO ×2 (08:59→17:15)
[2019-07-03] MEDS: lisinopriL 20 MG TABLET PO (08:59)
[2019-07-03] MEDS: ATORVASTATIN 40 MG TABLET PO (08:59)
[2019-07-03] MEDS: GABAPENTIN 300 MG CAPSULE PO ×3 (08:59→17:15)
[2019-07-03] MEDS: ASPIRIN 81 MG CHEWABLE TABLET PO (09:00)
[2019-07-03] MEDS: SERTRALINE HCL 50 MG TABLET 150 MG PO (09:00)
[2019-07-03] MEDS: INSULIN ASPART (*BKC) 100 UNITS/ML SUB-Q ×2 (11:31→17:16)
[2019-07-03 11:33] LABS: Glucose Point of Care 244 (65-105)
--- NOTE | 2019-07-03 13:04 | P.PNIM_ITS ---
Progress Note: A&P Assessment and Plan (1) Type 2 diabetes mellitus with hyperglycemia: Qualifiers: Diabetes mellitus intermodal dispatcher insulin use: with intermodal dispatcher use Qualified Code(s): E11.65 - Type 2 diabetes mellitus with hyperglycemia; Z79.4 - residential (current) use of insulin Code(s): E11.65 - Type 2 diabetes mellitus with hyperglycemia Status: Acute Assessment and Plan: * IV saline * 1 dose of IV insulin in emergency department * Diabetic diet * Basal (06/30 change to NPH BID) and sliding scale insulin * Discharge regimen to include cost effective insulin and oral agents * May need rehab due to gait impairment * He is currently temporarily, possibly permanently, disabled * CC consult in in progress * 07/02 FBS 187 (2) Type 2 diabetes mellitus with diabetic neuropathy: Qualifiers: Diabetes mellitus intermodal dispatcher insulin use: with [facility] use Qualified Code(s): E11.40 - Type 2 diabetes mellitus with diabetic neuropathy, unspecified; Z79.4 - residential (current) use of insulin Code(s): E11.40 - Type 2 diabetes mellitus with diabetic neuropathy, unspecified Status: Acute Assessment and Plan: * Glycemic control * Gabapentin * PT/OT * CT LS spine to exclude spinal stenosis, disc disease as contributing factor * [place] placement with Medicaid in process with care coordination (3) Hyponatremia: Code(s): E87.1 - Hypo-osmolality and hyponatremia Status: Acute Assessment and Plan: * Most of this is attributable will to a blood sugar over 500 * Initially improving with hydration and glycemic control, but 07/02 129 * Check FENA (4) Gait instability: Code(s): R26.81 - Unsteadiness on feet Status: Acute Assessment and Plan: * Likely due to diabetic neuropathy * B12 WNL * Suspect some secondary gain issues (5) Tinea pedis: Qualifiers: Laterality: unspecified laterality Qualified Code(s): B35.3 - Tinea pedis Code(s): B35.3 - Tinea pedis Status: Acute Assessment and Plan: * In part due to hyperglycemia * Topical miconazole (6) JOSH (obstructive sleep apnea): Code(s): G47.33 - Obstructive sleep apnea (adult) (pediatric) Status: Acute Assessment and Plan: * Continue home CPAP (7) Anemia: Qualifiers: Anemia type: unspecified type Qualified Code(s): D64.9 - Anemia, unspecified Code(s): D64.9 - Anemia, unspecified Status: Acute Assessment and Plan: * Hemoglobin decreased from 17 to just below 13 with hydration * Iron panel, B12, Folate, Retic count unremarkable * Stool for blood negative * C/w anemia chronic disease (8) Depression: Qualifiers: Depression Type: unspecified Qualified Code(s): F32.9 - Major depressive disorder, single episode, unspecified Code(s): F32.9 - Major depressive disorder, single episode, unspecified Status: Acute Assessment and Plan: * Continue sertraline (9) Hyperlipidemia: Qualifiers: Hyperlipidemia type: unspecified Qualified Code(s): E78.5 - Hyperlipidemia, unspecified Code(s): E78.5 - Hyperlipidemia, unspecified Status: Acute Assessment and Plan: -*- -Glycemic control * 07/01 Switched from simvastatin to atorvastatin (10) Hypomagnesemia: Code(s): E83.42 - Hypomagnesemia Status: Acute Assessment and Plan: * 07/02 1.3, replacement IV and f/u lab ordered Subjective Date/time seen: 07/03/19 1
--- NOTE | 2019-07-03 13:04 | PM.IMPN ---
Progress Note: A&P Assessment and Plan (1) Type 2 diabetes mellitus with hyperglycemia: Qualifiers: Diabetes mellitus director long term care insulin use: with director long term care use Qualified Code(s): E11.65 - Type 2 diabetes mellitus with hyperglycemia; Z79.4 - penit[facility]iary (current) use of insulin Code(s): E11.65 - Type 2 diabetes mellitus with hyperglycemia Status: Acute Assessment and Plan: IV saline 1 dose of IV insulin in emergency department Diabetic diet Basal (06/30 change to NPH BID) and sliding scale insulin Discharge regimen to include cost effective insulin and oral agents May need rehab due to gait impairment He is currently temporarily, possibly permanently, disabled CC consult in in progress 07/02 FBS 187 (2) Type 2 diabetes mellitus with diabetic neuropathy: Qualifiers: Diabetes mellitus alf insulin use: with alf use Qualified Code(s): E11.40 - Type 2 diabetes mellitus with diabetic neuropathy, unspecified; Z79.4 - exterminator helper (current) use of insulin Code(s): E11.40 - Type 2 diabetes mellitus with diabetic neuropathy, unspecified Status: Acute Assessment and Plan: Glycemic control Gabapentin PT/OT CT LS spine to exclude spinal stenosis, disc disease as contributing factor [facility] placement with Medicaid in process with care coordination (3) Hyponatremia: Code(s): E87.1 - Hypo-osmolality and hyponatremia Status: Acute Assessment and Plan: Most of this is attributable will to a blood sugar over 500 Initially improving with hydration and glycemic control, but 07/02 129 Check FENA (4) Gait instability: Code(s): R26.81 - Unsteadiness on feet Status: Acute Assessment and Plan: Likely due to diabetic neuropathy B12 WNL Suspect some secondary gain issues (5) Tinea pedis: Qualifiers: Laterality: unspecified laterality Qualified Code(s): B35.3 - Tinea pedis Code(s): B35.3 - Tinea pedis Status: Acute Assessment and Plan: In part due to hyperglycemia Topical miconazole (6) JOSH (obstructive sleep apnea): Code(s): G47.33 - Obstructive sleep apnea (adult) (pediatric) Status: Acute Assessment and Plan: Continue home CPAP (7) Anemia: Qualifiers: Anemia type: unspecified type Qualified Code(s): D64.9 - Anemia, unspecified Code(s): D64.9 - Anemia, unspecified Status: Acute Assessment and Plan: Hemoglobin decreased from 17 to just below 13 with hydration Iron panel, B12, Folate, Retic count unremarkable Stool for blood negative C/w anemia chronic disease (8) Depression: Qualifiers: Depression Type: unspecified Qualified Code(s): F32.9 - Major depressive disorder, single episode, unspecified Code(s): F32.9 - Major depressive disorder, single episode, unspecified Status: Acute Assessment and Plan: Continue sertraline (9) Hyperlipidemia: Qualifiers: Hyperlipidemia type: unspecified Qualified Code(s): E78.5 - Hyperlipidemia, unspecified Code(s): E78.5 - Hyperlipidemia, unspecified Status: Acute Assessment and Plan: Glycemic control 07/01 Switched from simvastatin to atorvastatin (10) Hypomagnesemia: Code(s): E83.42 - Hypomagnesemia Status: Acute Assessment and Plan: 07/02 1.3, replacement IV and f/u lab ordered Subjective Date/time seen: 07/03/19 13:04 Interval history: Admitted 06/29 with hyperglycemia and gait impairment. 07/02 Feeling stronger. Able to stand longer. But had a slow motion assisted fall to the floor while ambulating with ANIMAL CARE ATTENDANT today. She was walking with a gait belt and stated that he ?pushed her out of the way so that he could fall to the but that she was able to grab the belt and help him down. Notes now that he has some mild right buttock discomfort. History of disc disease in his neck with 2 diskect
[2019-07-03] MEDS: MAGNESIUM SULF 2 GM/WATER 50ML 2 GM/50 ML BAG IVPB (13:44)
[2019-07-03 16:34] LABS: Creatinine Urine 55.2 mg/dL
[2019-07-03 16:35] LABS: Sodium Urine Random 107 meq/L
[2019-07-03 16:47] LABS: Glucose Point of Care 241 (65-105)
[2019-07-03 21:05] LABS: Glucose Point of Care 261 (65-105)
[2019-07-04] VITALS (7 sets, daily range): BP systolic 133–176; BP diastolic 65–94; PULSE 64–81; RESP 14–18; TEMP 35.9–36.4; O2SAT 93–98
[2019-07-04 05:45] LABS: Hematocrit 33.9 % (42.0-52.0); Hemoglobin 12.5 g/dL (14.0-18.0); Mean Corpuscular HGB Conc 36.9 g/dl (32-36); Mean Corpuscular Hemoglobin 30.7 pg (26-34); Mean Corpuscular Volume 83.3 fl (80-100); Mean Platelet Volume 9.8 fl (7.4-10.4); Platelet Count Result 202 k/mm3 (150-375); Red Blood Count 4.07 M/mm3 (4.6-6.20); Red Cell Distribution Width 14.7 % (11.5-14.5); White Blood Count 7.8 K/mm3 (4.5-10.0)
[2019-07-04] MEDS: LEVOTHYROXINE SODIUM 100 MCG TABLET 200 MCG PO (05:54)
[2019-07-04] MEDS: INSULIN HUMAN NPH (*BKC) 100 UNITS/ML 30 UNITS SUB-Q ×2 (07:24→16:15)
[2019-07-04] MEDS: INSULIN ASPART (*BKC) 100 UNITS/ML SUB-Q (07:26)
[2019-07-04 07:43] LABS: Glucose Point of Care 209 (65-105)
[2019-07-04] MEDS: ATORVASTATIN 40 MG TABLET PO (09:20)
[2019-07-04] MEDS: ASPIRIN 81 MG CHEWABLE TABLET PO (09:20)
[2019-07-04] MEDS: GABAPENTIN 300 MG CAPSULE PO ×3 (09:21→16:15)
[2019-07-04] MEDS: SERTRALINE HCL 50 MG TABLET 150 MG PO (09:21)
[2019-07-04] MEDS: SENNOSIDES 8.6 MG TABLET PO ×2 (09:21→16:15)
[2019-07-04] MEDS: metFORMIN HCL 500 MG TABLET 1000 MG PO ×2 (09:21→16:15)
[2019-07-04] MEDS: lisinopriL 20 MG TABLET PO (09:21)
--- NOTE | 2019-07-04 10:55 | P.PNIM_ITS ---
Progress Note: A&P Assessment and Plan (1) Type 2 diabetes mellitus with hyperglycemia: Qualifiers: Diabetes mellitus medical research scientist insulin use: with medical research scientist use Qualified Code(s): E11.65 - Type 2 diabetes mellitus with hyperglycemia; Z79.4 - penitentiary (current) use of insulin Code(s): E11.65 - Type 2 diabetes mellitus with hyperglycemia Status: Acute Assessment and Plan: * 1 dose of IV insulin in emergency department * Diabetic diet * Basal (/ change to NPH BID) and sliding scale insulin * Discharge regimen to include cost effective insulin and oral agents * May need rehab due to gait impairment and CC working on placement * He is currently temporarily, possibly permanently, disabled * 07/03 FBS 209 fingerstick (2) Type 2 diabetes mellitus with diabetic neuropathy: Qualifiers: Diabetes mellitus medical research scientist insulin use: with snf use Qualified Code(s): E11.40 - Type 2 diabetes mellitus with diabetic neuropathy, unspecified; Z79.4 - penitentiary (current) use of insulin Code(s): E11.40 - Type 2 diabetes mellitus with diabetic neuropathy, unspecified Status: Acute Assessment and Plan: * Glycemic control * Gabapentin * PT/OT * CT LS spine no spinal stenosis, just degenerative disc disease as contributing factor * [place] placement with Medicaid in process with care coordination (3) Hyponatremia: Code(s): E87.1 - Hypo-osmolality and hyponatremia Status: Acute Assessment and Plan: * Most of this is attributable to a blood sugar over 500 and serum lipemia. Causing pseudo hyponatremia * Initially improving with hydration and glycemic control, but 07/02 129, today pending (4) Gait instability: Code(s): R26.81 - Unsteadiness on feet Status: Acute Assessment and Plan: * Likely due to diabetic neuropathy * B12 WNL * Suspect some secondary gain issues (5) Tinea pedis: Qualifiers: Laterality: unspecified laterality Qualified Code(s): B35.3 - Tinea pedis Code(s): B35.3 - Tinea pedis Status: Acute Assessment and Plan: * In part due to hyperglycemia * Topical miconazole (6) JOSH (obstructive sleep apnea): Code(s): G47.33 - Obstructive sleep apnea (adult) (pediatric) Status: Acute Assessment and Plan: * Continue home CPAP (7) Anemia: Qualifiers: Anemia type: unspecified type Qualified Code(s): D64.9 - Anemia, unspecified Code(s): D64.9 - Anemia, unspecified Status: Acute Assessment and Plan: * Hemoglobin decreased from 17 to just below 13 with hydration * Iron panel, B12, Folate, Retic count unremarkable * Stool for blood negative * C/w anemia chronic disease (8) Depression: Qualifiers: Depression Type: unspecified Qualified Code(s): F32.9 - Major depressive disorder, single episode, unspecified Code(s): F32.9 - Major depressive disorder, single episode, unspecified Status: Acute Assessment and Plan: * Continue sertraline (9) Hyperlipidemia: Qualifiers: Hyperlipidemia type: unspecified Qualified Code(s): E78.5 - Hyperlipidemia, unspecified Code(s): E78.5 - Hyperlipidemia, unspecified Status: Acute Assessment and Plan: -*- -Glycemic control * / Switched from simvastatin to atorvastatin and will check serum triglycerides in a.m. 07/04. (10) Hypomagnesemia: Code(s): E83.42 - Hypomagnesemia Status: Acute
--- NOTE | 2019-07-04 10:55 | PM.IMPN ---
Progress Note: A&P Assessment and Plan (1) Type 2 diabetes mellitus with hyperglycemia: Qualifiers: Diabetes mellitus superintendent marine oil terminal insulin use: with superintendent marine oil terminal use Qualified Code(s): E11.65 - Type 2 diabetes mellitus with hyperglycemia; Z79.4 - intermediate (current) use of insulin Code(s): E11.65 - Type 2 diabetes mellitus with hyperglycemia Status: Acute Assessment and Plan: 1 dose of IV insulin in emergency department Diabetic diet Basal (5/2 change to NPH BID) and sliding scale insulin Discharge regimen to include cost effective insulin and oral agents May need rehab due to gait impairment and CC working on placement He is currently temporarily, possibly permanently, disabled / FBS 209 fingerstick (2) Type 2 diabetes mellitus with diabetic neuropathy: Qualifiers: Diabetes mellitus half-way insulin use: with half-way use Qualified Code(s): E11.40 - Type 2 diabetes mellitus with diabetic neuropathy, unspecified; Z79.4 - joint terminal attack controller (current) use of insulin Code(s): E11.40 - Type 2 diabetes mellitus with diabetic neuropathy, unspecified Status: Acute Assessment and Plan: Glycemic control Gabapentin PT/OT CT LS spine no spinal stenosis, just degenerative disc disease as contributing factor NH placement with Medicaid in process with care coordination (3) Hyponatremia: Code(s): E87.1 - Hypo-osmolality and hyponatremia Status: Acute Assessment and Plan: Most of this is attributable to a blood sugar over 500 and serum lipemia. Causing pseudo hyponatremia Initially improving with hydration and glycemic control, but / 129, today pending (4) Gait instability: Code(s): R26.81 - Unsteadiness on feet Status: Acute Assessment and Plan: Likely due to diabetic neuropathy B12 WNL Suspect some secondary gain issues (5) Tinea pedis: Qualifiers: Laterality: unspecified laterality Qualified Code(s): B35.3 - Tinea pedis Code(s): B35.3 - Tinea pedis Status: Acute Assessment and Plan: In part due to hyperglycemia Topical miconazole (6) JOSH (obstructive sleep apnea): Code(s): G47.33 - Obstructive sleep apnea (adult) (pediatric) Status: Acute Assessment and Plan: Continue home CPAP (7) Anemia: Qualifiers: Anemia type: unspecified type Qualified Code(s): D64.9 - Anemia, unspecified Code(s): D64.9 - Anemia, unspecified Status: Acute Assessment and Plan: Hemoglobin decreased from 17 to just below 13 with hydration Iron panel, B12, Folate, Retic count unremarkable Stool for blood negative C/w anemia chronic disease (8) Depression: Qualifiers: Depression Type: unspecified Qualified Code(s): F32.9 - Major depressive disorder, single episode, unspecified Code(s): F32.9 - Major depressive disorder, single episode, unspecified Status: Acute Assessment and Plan: Continue sertraline (9) Hyperlipidemia: Qualifiers: Hyperlipidemia type: unspecified Qualified Code(s): E78.5 - Hyperlipidemia, unspecified Code(s): E78.5 - Hyperlipidemia, unspecified Status: Acute Assessment and Plan: Glycemic control 07/01 Switched from simvastatin to atorvastatin and will check serum triglycerides in a.m. 07/04. (10) Hypomagnesemia: Code(s): E83.42 - Hypomagnesemia Status: Acute Assessment and Plan: 07/02 1.3, replacement IV and f/u lab ordered Subjective Date/time seen: 07/04/19 10:55 Interval history: Date of visit 07/03. Admitted 06/29 with hyperglycemia and gait impairment. Feeling stronger. Able to stand longer but still not walking. History of disc disease in his neck with 2 diskectomies and fusions in the past. No history of lumbar disease. And CT 07/02 revealed only DJD. But has had multiple adjustments by chiropractor in the past for l
[2019-07-04 12:07] LABS: Glucose Point of Care 199 (65-105)
[2019-07-04 14:29] LABS: Blood Urea Nitrogen 12 mg/dL (9-20); Calcium 9.2 mg/dL (8.4-10.2); Carbon Dioxide 22 mmol/L (22-30); Chloride 98 mmol/L (98-107); Estimated CRCL calculation 111 ml/min; Estimated Glomerular Filt Rate > 60; Glucose 196 mg/dL (75-110); Magnesium 1.3 mg/dL (1.6-2.3); Potassium 4.2 mmol/L (3.4-5.0); Sodium 130 mmol/L (137-145)
[2019-07-04 16:20] LABS: Glucose Point of Care 198 (65-105)
[2019-07-04] MEDS: MAGNESIUM SULF 2 GM/WATER 50ML 2 GM/50 ML BAG IVPB (18:14)
[2019-07-04] MEDS: MAGNESIUM SULF 1 GM/D5W 100 ML 1 GM/100 ML BAG IVPB (18:15)
[2019-07-05 00:25] LABS: Glucose Point of Care 251 (65-105)
[2019-07-05 05:39] LABS: LDL Cholesterol Direct 52 mg/dL
[2019-07-05 06:00] VITALS: BP 153/86; PULSE 69; RESP 15; TEMP 36.1; O2SAT 97
[2019-07-05 06:06] LABS: Alanine Aminotransferase 75 U/L (4-50); Albumin Level 3.9 g/dL (3.5-5.1); Alkaline Phosphatase 57 U/L (38-126); Aspartate Amino Transferase 59 U/L (17-59); Bilirubin,Total 0.7 mg/dL (0.2-1.3); Blood Urea Nitrogen 14 mg/dL (9-20); Calcium 8.7 mg/dL (8.4-10.2); Carbon Dioxide 24 mmol/L (22-30); Chloride 98 mmol/L (98-107); Estimated CRCL calculation 111 ml/min; Estimated Glomerular Filt Rate > 60; Glucose 174 mg/dL (75-110); Potassium 3.7 mmol/L (3.4-5.0); Sodium 129 mmol/L (137-145)
[2019-07-05 06:08] LABS: Cholesterol 412 mg/dL (0-200); Triglycerides 1088 mg/dL (<150)
[2019-07-05] MEDS: LEVOTHYROXINE SODIUM 100 MCG TABLET 200 MCG PO (06:31)
[2019-07-05] MEDS: INSULIN HUMAN NPH (*BKC) 100 UNITS/ML 30 UNITS SUB-Q ×2 (06:34→16:37)
[2019-07-05 06:47] LABS: Thyroid Stimulating Hormone Reflex > 100.000 uIU/mL (0.465-4.68)
[2019-07-05 07:55] LABS: Glucose Point of Care 160 (65-105)
[2019-07-05] MEDS: LEVOTHYROXINE SODIUM 50 MCG TABLET PO (08:29)
[2019-07-05] MEDS: metFORMIN HCL 500 MG TABLET 1000 MG PO ×2 (08:29→16:40)
[2019-07-05] MEDS: ASPIRIN 81 MG CHEWABLE TABLET PO (08:29)
[2019-07-05] MEDS: lisinopriL 20 MG TABLET PO (08:29)
[2019-07-05] MEDS: SENNOSIDES 8.6 MG TABLET PO ×2 (08:29→16:39)
[2019-07-05] MEDS: ATORVASTATIN 40 MG TABLET PO (08:30)
[2019-07-05] MEDS: SERTRALINE HCL 50 MG TABLET 150 MG PO (08:30)
[2019-07-05] MEDS: GABAPENTIN 300 MG CAPSULE PO ×3 (08:30→16:39)
[2019-07-05 11:57] LABS: Glucose Point of Care 185 (65-105)
--- NOTE | 2019-07-05 13:38 | P.PNIM_ITS ---
Progress Note: A&P Assessment and Plan (1) Type 2 diabetes mellitus with hyperglycemia: Qualifiers: Diabetes mellitus detention insulin use: with detention use Qualified Code(s): E11.65 - Type 2 diabetes mellitus with hyperglycemia; Z79.4 - long-term (current) use of insulin Code(s): E11.65 - Type 2 diabetes mellitus with hyperglycemia Status: Acute Assessment and Plan: * 1 dose of IV insulin in emergency department * Diabetic diet * Basal (5/2 change to NPH BID) and sliding scale insulin * Discharge regimen to include cost effective insulin and oral agents * May need rehab due to gait impairment and CC working on placement but having problems with medicaid pending * He is currently temporarily, possibly permanently, disabled * / FBS 174 (2) Type 2 diabetes mellitus with diabetic neuropathy: Qualifiers: Diabetes mellitus watermelon harvesting supervisor insulin use: with detention use Qualified Code(s): E11.40 - Type 2 diabetes mellitus with diabetic neuropathy, unspecified; Z79.4 - long term acute care registered nurse (current) use of insulin Code(s): E11.40 - Type 2 diabetes mellitus with diabetic neuropathy, unspecified Status: Acute Assessment and Plan: * Glycemic control * Gabapentin * PT/OT * CT LS spine no spinal stenosis, just degenerative disc disease as contributing factor * NH placement with Medicaid in process with care coordination (3) Hyponatremia: Code(s): E87.1 - Hypo-osmolality and hyponatremia Status: Acute Assessment and Plan: * Most of this is attributable to a blood sugar over 500 and serum lipemia. Causing pseudo hyponatremia * Initially improving with hydration and glycemic control, but 5/6 still 129, * Hyponatremia also contributing to Na (4) Gait instability: Code(s): R26.81 - Unsteadiness on feet Status: Acute Assessment and Plan: * Likely due to diabetic neuropathy * B12 WNL * Possibly some secondary gain issues (5) Tinea pedis: Qualifiers: Laterality: unspecified laterality Qualified Code(s): B35.3 - Tinea pedis Code(s): B35.3 - Tinea pedis Status: Acute Assessment and Plan: * In part due to hyperglycemia * Topical miconazole (6) JOSH (obstructive sleep apnea): Code(s): G47.33 - Obstructive sleep apnea (adult) (pediatric) Status: Acute Assessment and Plan: * Continue home CPAP (7) Anemia: Qualifiers: Anemia type: unspecified type Qualified Code(s): D64.9 - Anemia, unspecified Code(s): D64.9 - Anemia, unspecified Status: Acute Assessment and Plan: * Hemoglobin decreased from 17 to just below 13 with hydration * Iron panel, B12, Folate, Retic count unremarkable * Stool for blood negative * C/w anemia chronic disease (8) Depression: Qualifiers: Depression Type: unspecified Qualified Code(s): F32.9 - Major depressive disorder, single episode, unspecified Code(s): F32.9 - Major depressive disorder, single episode, unspecified Status: Acute Assessment and Plan: * Continue sertraline (9) Hyperlipidemia: Qualifiers: Hyperlipidemia type: unspecified Qualified Code(s): E78.5 - Hyperlipidemia, unspecified Code(s): E78.5 - Hyperlipidemia, unspecified Status: Acute Assessment and Plan: -*- -Glycemic control * / Switched from simvastatin to atorvastatin and will check serum triglycerides 1088 with chol 412 this am! (10) Hypomagnesemia:
--- NOTE | 2019-07-05 13:38 | PM.IMPN ---
Progress Note: A&P Assessment and Plan (1) Type 2 diabetes mellitus with hyperglycemia: Qualifiers: Diabetes mellitus [facility] insulin use: with [facility] use Qualified Code(s): E11.65 - Type 2 diabetes mellitus with hyperglycemia; Z79.4 - [facility] (current) use of insulin Code(s): E11.65 - Type 2 diabetes mellitus with hyperglycemia Status: Acute Assessment and Plan: 1 dose of IV insulin in emergency department Diabetic diet Basal (5/2 change to NPH BID) and sliding scale insulin Discharge regimen to include cost effective insulin and oral agents May need rehab due to gait impairment and CC working on placement but having problems with medicaid pending He is currently temporarily, possibly permanently, disabled 5/6 FBS 174 (2) Type 2 diabetes mellitus with diabetic neuropathy: Qualifiers: Diabetes mellitus intermediate accountant insulin use: with [facility] use Qualified Code(s): E11.40 - Type 2 diabetes mellitus with diabetic neuropathy, unspecified; Z79.4 - intermodal truck driver (current) use of insulin Code(s): E11.40 - Type 2 diabetes mellitus with diabetic neuropathy, unspecified Status: Acute Assessment and Plan: Glycemic control Gabapentin PT/OT CT LS spine no spinal stenosis, just degenerative disc disease as contributing factor NH placement with Medicaid in process with care coordination (3) Hyponatremia: Code(s): E87.1 - Hypo-osmolality and hyponatremia Status: Acute Assessment and Plan: Most of this is attributable to a blood sugar over 500 and serum lipemia. Causing pseudo hyponatremia Initially improving with hydration and glycemic control, but 5/6 still 129, Hyponatremia also contributing to Na (4) Gait instability: Code(s): R26.81 - Unsteadiness on feet Status: Acute Assessment and Plan: Likely due to diabetic neuropathy B12 WNL Possibly some secondary gain issues (5) Tinea pedis: Qualifiers: Laterality: unspecified laterality Qualified Code(s): B35.3 - Tinea pedis Code(s): B35.3 - Tinea pedis Status: Acute Assessment and Plan: In part due to hyperglycemia Topical miconazole (6) JOSH (obstructive sleep apnea): Code(s): G47.33 - Obstructive sleep apnea (adult) (pediatric) Status: Acute Assessment and Plan: Continue home CPAP (7) Anemia: Qualifiers: Anemia type: unspecified type Qualified Code(s): D64.9 - Anemia, unspecified Code(s): D64.9 - Anemia, unspecified Status: Acute Assessment and Plan: Hemoglobin decreased from 17 to just below 13 with hydration Iron panel, B12, Folate, Retic count unremarkable Stool for blood negative C/w anemia chronic disease (8) Depression: Qualifiers: Depression Type: unspecified Qualified Code(s): F32.9 - Major depressive disorder, single episode, unspecified Code(s): F32.9 - Major depressive disorder, single episode, unspecified Status: Acute Assessment and Plan: Continue sertraline (9) Hyperlipidemia: Qualifiers: Hyperlipidemia type: unspecified Qualified Code(s): E78.5 - Hyperlipidemia, unspecified Code(s): E78.5 - Hyperlipidemia, unspecified Status: Acute Assessment and Plan: Glycemic control 07/01 Switched from simvastatin to atorvastatin and will check serum triglycerides 1088 with chol 412 this am! (10) Hypomagnesemia: Code(s): E83.42 - Hypomagnesemia Status: Acute Assessment and Plan: 07/02 1.3, replacement IV and f/u lab ordered (11) Hypothyroidism: Code(s): E03.9 - Hypothyroidism, unspecified Status: Acute Assessment and Plan: TSH this a.m. greater than 100. Patient relates that 6 weeks ago stop taking his to 200 micro g levothyroxine daily. This obviously could be contributing to agree part of his symptomatology.. Low-dose levothyroxine s
[2019-07-05 14:00] VITALS: BP 140/67; PULSE 82; RESP 18; TEMP 36.8; O2SAT 97
[2019-07-05 16:31] LABS: Glucose Point of Care 177 (65-105)
[2019-07-05 22:32] LABS: Glucose Point of Care 226 (65-105)
[2019-07-05 23:11] VITALS: BP 155/76; PULSE 67; RESP 18; TEMP 36.2; O2SAT 97
[2019-07-06 04:51] VITALS: BP 142/77; PULSE 64; RESP 16; TEMP 36.2; O2SAT 98
[2019-07-06 06:03] LABS: Magnesium 1.4 mg/dL (1.6-2.3)
[2019-07-06] MEDS: LEVOTHYROXINE SODIUM 100 MCG TABLET 200 MCG PO (06:40)
[2019-07-06] MEDS: INSULIN HUMAN NPH (*BKC) 100 UNITS/ML 30 UNITS SUB-Q ×2 (07:32→16:31)
[2019-07-06 07:42] LABS: Glucose Point of Care 178 (65-105)
[2019-07-06] MEDS: ASPIRIN 81 MG CHEWABLE TABLET PO (08:18)
[2019-07-06] MEDS: GABAPENTIN 300 MG CAPSULE PO ×3 (08:18→16:31)
[2019-07-06] MEDS: SENNOSIDES 8.6 MG TABLET PO ×2 (08:18→16:31)
[2019-07-06] MEDS: ATORVASTATIN 40 MG TABLET PO (08:18)
[2019-07-06] MEDS: SERTRALINE HCL 50 MG TABLET 150 MG PO (08:18)
[2019-07-06] MEDS: lisinopriL 20 MG TABLET PO (08:19)
[2019-07-06] MEDS: metFORMIN HCL 500 MG TABLET 1000 MG PO ×2 (08:19→16:31)
[2019-07-06] MEDS: MAGNESIUM SULFATE 3GM/D5W100ML 3 GM/100 ML BAG IVPB (08:22)
[2019-07-06 11:35] LABS: Glucose Point of Care 175 (65-105)
[2019-07-06 14:00] VITALS: BP 127/71; PULSE 70; RESP 16; TEMP 36.3; O2SAT 97
[2019-07-06 16:20] LABS: Glucose Point of Care 211 (65-105)
[2019-07-06] MEDS: INSULIN ASPART (*BKC) 100 UNITS/ML SUB-Q (16:32)
--- NOTE | 2019-07-06 16:51 | PC.NURSE ---
Spoke with Sravani in [facility] in regards to the pts ride home. A friend of his by the name of debbie will be taking him home. Pt had expressed a concern of being able to get up some steps in the house. Spoke with [facility] and Dr. Torrez about this concern they both stated as long as there is someone to help him when he arrives home to get into the house he is okay to go.
--- NOTE | 2019-07-06 17:26 | PC.NURSE ---
Pt heavily instructed to be very cautious when at home and moving around the house, Pt friend debbie providing a wheelchair to help him get around easier until weakness improves.
--- NOTE | 2019-07-07 17:39 | P.DS_ITS ---
DS: Diagnosis Admitting Diagnosis Admitting Diagnosis: Type 2 diabetes mellitus with hyperglycemia Discharge Diagnosis (1) Type 2 diabetes mellitus with hyperglycemia: Qualifiers: Diabetes mellitus custodial insulin use: with exterminator helper use Qualified Code(s): E11.65 - Type 2 diabetes mellitus with hyperglycemia; Z79.4 - terminal computer operator (current) use of insulin Code(s): E11.65 - Type 2 diabetes mellitus with hyperglycemia Status: Acute Assessment and Plan: * 1 dose of IV insulin in emergency department * Diabetic diet * Basal (06/30 change to NPH BID) and sliding scale insulin due to cost for outpatient med * Discharge regimen to include cost effective insulin(70/30 and metformin) * needed rehab due to gait impairment but was unable to obtain due to lack of insurance and he had 2 any assets to qualify for Medicaid, thus patient was discharged home * He is currently temporarily, possibly permanently, disabled patient * 07/05 FBS 178 (2) Type 2 diabetes mellitus with diabetic neuropathy: Qualifiers: Diabetes mellitus exterminator helper insulin use: with exterminator helper use Qualified Code(s): E11.40 - Type 2 diabetes mellitus with diabetic neuropathy, unspecified; Z79.4 - terminal computer operator (current) use of insulin Code(s): E11.40 - Type 2 diabetes mellitus with diabetic neuropathy, unspecified Status: Acute Assessment and Plan: * Glycemic control * Gabapentin * PT/OT while here * CT LS spine no spinal stenosis, just degenerative disc disease as contributing factor * NH placement could not be obtained as above due to lack of insurance and failure to qualify for Medicaid due to too many financial assets (3) Hyponatremia: Code(s): E87.1 - Hypo-osmolality and hyponatremia Status: Acute Assessment and Plan: * Most of this is attributable to a blood sugar over 500 and serum lipemia. Causing pseudo hyponatremia * Initially improving with hydration and glycemic control, but 07/04 still 129, * Hypothyroidism also contributing to Na (4) Gait instability: Code(s): R26.81 - Unsteadiness on feet Status: Acute Assessment and Plan: * Likely due to diabetic neuropathy * B12 WNL * Possibly some secondary gain issues * Seen by PT while here (5) JOSH (obstructive sleep apnea): Code(s): G47.33 - Obstructive sleep apnea (adult) (pediatric) Status: Acute Assessment and Plan: * Continue home CPAP (6) Anemia: Qualifiers: Anemia type: unspecified type Qualified Code(s): D64.9 - Anemia, unspecified Code(s): D64.9 - Anemia, unspecified Status: Acute Assessment and Plan: * Hemoglobin decreased from 17 to just below 13 with hydration * Iron panel, B12, Folate, Retic count unremarkable * Stool for blood negative * C/w anemia chronic disease (7) Depression: Qualifiers: Depression Type: unspecified Qualified Code(s): F32.9 - Major depressive disorder, single episode, unspecified Code(s): F32.9 - Major depressive disorder, single episode, unspecified Status: Acute Assessment and Plan: * Continue sertraline (8) Hyperlipidemia: Qualifiers: Hyperlipidemia type: unspecified Qualified Code(s): E78.5 - Hyperlipidemia, unspecified Code(s): E78.5 - Hyperlipidemia, unspecified Status: Acute Assessment and Plan: -*- -Glycemic control * serum triglycerides 1088 with chol 412 this am, TSH will be corrected with his Synthroid medication and gem
--- NOTE | 2019-07-07 17:39 | PM.DS ---
DS: Diagnosis Admitting Diagnosis Admitting Diagnosis: Type 2 diabetes mellitus with hyperglycemia Discharge Diagnosis (1) Type 2 diabetes mellitus with hyperglycemia: Qualifiers: Diabetes mellitus senior living insulin use: with intermediate frame tender use Qualified Code(s): E11.65 - Type 2 diabetes mellitus with hyperglycemia; Z79.4 - buttermaker continuous churn (current) use of insulin Code(s): E11.65 - Type 2 diabetes mellitus with hyperglycemia Status: Acute Assessment and Plan: 1 dose of IV insulin in emergency department Diabetic diet Basal (06/30 change to NPH BID) and sliding scale insulin due to cost for outpatient med Discharge regimen to include cost effective insulin(70/30 and metformin) needed rehab due to gait impairment but was unable to obtain due to lack of insurance and he had 2 any assets to qualify for Medicaid, thus patient was discharged home He is currently temporarily, possibly permanently, disabled patient 07/05 FBS 178 (2) Type 2 diabetes mellitus with diabetic neuropathy: Qualifiers: Diabetes mellitus intermediate frame tender insulin use: with senior living use Qualified Code(s): E11.40 - Type 2 diabetes mellitus with diabetic neuropathy, unspecified; Z79.4 - alf (current) use of insulin Code(s): E11.40 - Type 2 diabetes mellitus with diabetic neuropathy, unspecified Status: Acute Assessment and Plan: Glycemic control Gabapentin PT/OT while here CT LS spine no spinal stenosis, just degenerative disc disease as contributing factor NH placement could not be obtained as above due to lack of insurance and failure to qualify for Medicaid due to too many financial assets (3) Hyponatremia: Code(s): E87.1 - Hypo-osmolality and hyponatremia Status: Acute Assessment and Plan: Most of this is attributable to a blood sugar over 500 and serum lipemia. Causing pseudo hyponatremia Initially improving with hydration and glycemic control, but 5 still 129, Hypothyroidism also contributing to Na (4) Gait instability: Code(s): R26.81 - Unsteadiness on feet Status: Acute Assessment and Plan: Likely due to diabetic neuropathy B12 WNL Possibly some secondary gain issues Seen by PT while here (5) JOSH (obstructive sleep apnea): Code(s): G47.33 - Obstructive sleep apnea (adult) (pediatric) Status: Acute Assessment and Plan: Continue home CPAP (6) Anemia: Qualifiers: Anemia type: unspecified type Qualified Code(s): D64.9 - Anemia, unspecified Code(s): D64.9 - Anemia, unspecified Status: Acute Assessment and Plan: Hemoglobin decreased from 17 to just below 13 with hydration Iron panel, B12, Folate, Retic count unremarkable Stool for blood negative C/w anemia chronic disease (7) Depression: Qualifiers: Depression Type: unspecified Qualified Code(s): F32.9 - Major depressive disorder, single episode, unspecified Code(s): F32.9 - Major depressive disorder, single episode, unspecified Status: Acute Assessment and Plan: Continue sertraline (8) Hyperlipidemia: Qualifiers: Hyperlipidemia type: unspecified Qualified Code(s): E78.5 - Hyperlipidemia, unspecified Code(s): E78.5 - Hyperlipidemia, unspecified Status: Acute Assessment and Plan: Glycemic control serum triglycerides 1088 with chol 412 this am, TSH will be corrected with his Synthroid medication and gemfibrozil was added to the simvastatin (9) Hypothyroidism: Code(s): E03.9 - Hypothyroidism, unspecified Status: Acute Assessment and Plan: TSH greater than 100. Patient relates that 6 weeks ago stop taking his to 200 micro g levothyroxine daily. This obviously could be contributing to agree part of his symptomatology.. He was having no difficulty with his usual dose of levothyroxine in her been no cardiac history so we discharged him
[2019-07-09 03:23] LABS: Albumin 3.8 g/dL (3.8-4.8); Alpha 1 Globulin 0.2 g/dL (0.2-0.3); Alpha 2 Globulin 0.7 g/dL (0.5-0.9); Beta 1 Globulin 0.4 g/dL (0.4-0.6); Gamma Globulin 0.5 g/dL (0.8-1.7); Interpretation Consistent with; Protein, Total 5.8 g/dL (6.1-8.1)
--- NOTE | 2019-07-12 09:09 | PC.NURSE ---
Returned phone message from patient. No answer, left message.
--- NOTE | 2019-07-19 10:19 | PC.NURSE ---
Received call from patient stating he is unable to afford the 70/30 insulin pens. Received order from Dr. Torrez to change to vial. Faxed order to [facility]. Left message with patient.
== END 2019-07-06 17:28 | disposition home or self-care (01) | DRG 420 ==
LOC: ANHED 08:33 → ANH3MED 10:19
PROVIDERS: Emergency Medicine; Admitting Provider Internal Medicine; Emergency Provider Emergency Medicine; Visit Provider Internal Medicine
DX: E11.65 Type 2 diabetes mellitus with hyperglycemia (principal); E11.42 Type 2 diabetes mellitus with diabetic polyneuropathy; E87.1 Hypo-osmolality and hyponatremia; G47.33 Obstructive sleep apnea (adult) (pediatric); R26.81 Unsteadiness on feet; F32.9 Major depressive disorder, single episode, unspecified; E78.5 Hyperlipidemia, unspecified; E03.9 Hypothyroidism, unspecified; I10 Essential (primary) hypertension; E83.42 Hypomagnesemia; B35.3 Tinea pedis; Z91.14 Patient's other noncompliance with medication regimen; Z79.4 Long term (current) use of insulin; Z90.49 Acquired absence of other specified parts of digestive tract; Z95.1 Presence of aortocoronary bypass graft; Z87.891 Personal history of nicotine dependence
CPT/HCPCS: 36415; 36600; 70450; 71045; 72128; 72131; 80048; 80053; 80061; 80307; 81001; 82274; 82570; 82607; 82746; 82805; 82948; 83540; 83550; 83735; 84100; 84155; 84165; 84300; 84439; 84443; 85025; 85027; 85046; 85055; 93005; 94660; 96361; 96374; 97110; 97116; 97161; 97165; 97530; 97535; 99285; A9270; J1815; J1885; J3475; J7030

== ENCOUNTER 2019-07-21 06:34 | Observation (INO) | payer SELFPAY ==
[2019-07-21] VITALS (19 sets, daily range): BP systolic 126–187; BP diastolic 72–116; PULSE 71–83; RESP 15–23; TEMP 36.2–37.4; O2SAT 96–100; BMI 35.7; BMI 33.2
--- NOTE | ~2019-07-21 | XR_ITS ---
EXAMINATION: XR chest 2V DATE: 07/21/2019 07:14 INDICATION: Weakness TECHNIQUE: frontal and lateral views of the chest were obtained. COMPARISON: Chest radiograph dated 06/30/2019 FINDINGS: Minimal linear discoid atelectasis/scarring at the left lung base. Lungs otherwise clear with no othe r airspace opacities, pulmonary edema, pleural effusion or pneumothorax. The cardiomediastinal silhou ette is normal. Median sternotomy wires and mediastinal surgical clips are seen, likely from prior co ronary artery bypass grafting. Plate and screw fixation for anterior spinal fusion at C6-C7. Hypoplas tic left first rib. IMPRESSION: 1. Minimal left basilar atelectasis/scarring. No other acute cardiopulmonary disease. Reviewed, dictated and finalized at location A. IMPRESSION: 1. Minimal left basilar atelectasis/scarring. No other acute cardiopulmonary di sease.
--- NOTE | ~2019-07-21 | XR_ITS ---
XR hip RT 2V w AP pelvis DATE: 07/21/2019 08:44 INDICATION: Fall from wheelchair TECHNIQUE: AP pelvis. AP and lateral right hip views COMPARISON: None FINDINGS: No pelvic fracture or bone destruction. The pubic symphysis and sacroiliac joints are inta ct. No fracture or dislocation, avascular necrosis or bone destruction. Right hip joint space is we ll preserved, symmetric. IMPRESSION: No pelvic or right hip fracture Reviewed, dictated and finalized at location A.
--- NOTE | ~2019-07-21 | XR_ITS ---
XR sacrum coccyx min 2V DATE: 07/21/2019 08:44 INDICATION: Fall. Sacral injury. TECHNIQUE: AP, angled AP and lateral views COMPARISON: 06/17/2019 CT abdomen pelvis FINDINGS: There is 7 mm greater than 50% posterior dislocation between the first and second coccygeal segments. No sacral fracture or bone destruction is detected. IMPRESSION: Dislocation at the first-second coccygeal segments Reviewed, dictated and finalized at location A.
--- NOTE | 2019-07-21 06:54 | ECG_ITS ---
Measurements Intervals [place] Rate: 72 P: 47 [place]: 144 QRS: 66 QRSD: 114 T: 2 QT: 406 QTc: 447 Interpretive Statements SINUS RHYTHM BORDERLINE ST ABNORMALITY- ANTERIOR LEADS BORDERLINE ECG Electronically Signed On 07-21-2019 7:14:36 CDT by Jamaal Harkins D.O.
[2019-07-21 07:06] LABS: Basophils Absolute Auto 0.1 K/mm3 (0.0-0.1); Basophils Percent Auto 0.7 % (0.2-1.2); Eosinophils Absolute Auto 0.1 K/mm3 (0-0.3); Eosinophils Percent Auto 1.7 % (0-4.4); Immature Granulocyte Absolute 0.04 K/mm3 (0.00-0.031); Immature Granulocyte Percent A 0.6 % (0-0.5); Lymphocytes Absolute Auto 1.71 K/mm3 (0.9-3.2); Lymphocytes Percent Auto 24.1 % (18.3-44.2); Mean Corpuscular HGB Conc 36.4 g/dl (32-36); Mean Corpuscular Hemoglobin 30.1 pg (26-34); Mean Corpuscular Volume 82.7 fl (80-100); Mean Platelet Volume 10.3 fl (7.4-10.4); Monocytes Absolute Auto 0.5 K/mm3 (0.1-0.6); Monocytes Percent Auto 6.5 % (2.6-8.5); Neutrophils Absolute Auto 4.7 K/mm3 (1.3-6.7); Neutrophils Percent Auto 66.4 % (45.5-73.1); Platelet Count Result 201 k/mm3 (150-375); Red Blood Count 3.99 M/mm3 (4.6-6.20); Red Cell Distribution Width 14.4 % (11.5-14.5); White Blood Count 7.1 K/mm3 (4.5-10.0)
--- NOTE | 2019-07-21 07:08 | PC.NURSE ---
Report received from Kriss Garcia RN.
[2019-07-21 07:11] LABS: Add Urine Microscopic? YES; Appearance Urine Clear (Clear); Bilirubin Urine Negative (Negative); Blood Urine Negative (Negative); Color Urine Colorless (Yellow); Glucose Urine UA 3+ mg/dL (Negative); Ketones Urine Negative (Negative); Leukocyte Esterase Ur Negative LEU/UL (Negative); Nitrate Urine Negative (Negative); Protein Urine Negative (Negative); RBC Urine 0-2 /hpf (0-2); Specific Grav Ur 1.027 (1.001-1.035); Urobilinogen Urine Negative mg/dL (<2.0); WBC Urine 0-3 /hpf
[2019-07-21 07:20] LABS: Alanine Aminotransferase 102 U/L (4-50); Albumin Level 4.4 g/dL (3.5-5.1); Alkaline Phosphatase 76 U/L (38-126); Aspartate Amino Transferase 48 U/L (17-59); Bilirubin,Total 0.7 mg/dL (0.2-1.3); Blood Urea Nitrogen 26 mg/dL (9-20); Calcium 9.5 mg/dL (8.4-10.2); Carbon Dioxide 22 mmol/L (22-30); Chloride 99 mmol/L (98-107); Estimated CRCL calculation 109 ml/min; Estimated Glomerular Filt Rate > 60; Glucose 444 mg/dL (75-110); Potassium 4.3 mmol/L (3.4-5.0); Sodium 132 mmol/L (137-145)
--- NOTE | 2019-07-21 07:23 | ED.FALL ---
HPI - Fall General Chief Complaint: Fall Stated Complaint: Weakness Time Seen by Provider: 07/21/19 07:02 Source: RN notes reviewed History of Present Illness HPI Narrative: Patient presents emergency department from home for a fall. Patient states that this morning approximately 430 he was trying to get out of his bed into his wheelchair when he was unable to hold himself up and fell landing on his buttocks. States has had pain in his tailbone since that time. He denies striking his head or loss of consciousness. Patient states that he lives at home by himself and is chronically in a wheelchair. He states he has been having a difficult time getting around his house. He denies any recent illness denies any vision changes numbness or tingling in extremities chest pain shortness of breath abdominal pain nausea vomiting or any other symptoms at this time Related Data Home Medications Medication Instructions Recorded Confirmed gemfibrozil 600 mg PO DAILY 07/21/19 07/21/19 insulin detemir U-100 [Levemir 0 unit SUBCUT DAILY 07/21/19 07/21/19 U-100 Insulin] sertraline 50 mg PO DAILY 07/21/19 07/21/19 Allergies Allergy/AdvReac Type Severity Reaction Status Date / Time No Known Allergies Allergy Verified 07/21/19 07:16 Review of Systems Review of Systems: Narrative: Gen.: Denies fevers or chills Eyes: Denies eye pain or visual change ENT: Denies congestion Respiratory: Denies shortness of breath or cough CV: Denies chest pain or palpitations GI: Denies abdominal pain nausea, emesis or diarrhea Musculoskeletal: Reports coccyx pain denies neck pain Neuro: Denies numbness, tingling, reports weakness Skin: Denies rash Except as documented, all other systems reviewed and negative [facility] Past Medical History Medical History Depression Diabetes Dx 2016 HTN (hypertension) Dx 2009 Hyperlipidemia Hypothyroidism Dx 1974 after JOYCE for hyperthyroidism JOSH (obstructive sleep apnea) Recovering alcoholic quit drinking 1989 Type 2 diabetes mellitus with diabetic neuropathy Surgical History Surgical History (Updated 06/30/19 @ 12:59 by Zenon Lew MD) Hx of cholecystectomy S/P CABG x 1 2009 Family History Family History (Updated 06/30/19 @ 13:02 by Zenon Lew MD) Father Diabetes mellitus Heart disease Mother Heart disease Cerebrovascular accident Diabetes mellitus Social History Social History Smoking packs per day: 2 Smoking cigarettes per day: 40.0 Years smoked: 20 Smoking pack-years: 40.00 Smoking status: Former smoker Smoking end date: 06/28/09 Alcohol intake: former Substance use: former Additional living arrangements comments: . Lives alone in small house. Additional occupation/education comments: Lost job in late April,. Gender identity (if verbalized by the patient): Male Spiritual care concerns: No Agree to blood products: Yes Exam Narrative: Exam Narrative: APPEARANCE: No acute distress, nontoxic, resting in bed EYES: EOMI PERRL HEENT: Normocephalic, atraumatic, OMM RESPIRATORY: No respiratory distress Clear to auscultation bilaterally with no rhonchi wheezing or rales. CARDIOVASCULAR: Regular rate and rhythm without murmurs rubs or gallops. ABDOMINAL: Soft, nontender, nondistended, no rebound or guarding Back: No midline thoracic or lumbar tenderness to palpation, tender palpation over coccyx region MUSCULOSKELETAl: Moves all extremities. No clubbing, cyanosis or edema. Tender to palpation over right lateral and anterior hip no swelling or ecchymosis NEURO: Awake and alert x3. Following commands, speech normal, no focal deficits muscle strength 5 out of 5 in bilateral upper extremities and 4-5 in the bilateral lower extremities SKIN:: Warm, dry. No rashes lesions or abrasions PSYCHIATRIC: Normal affect/mood,, [place]
--- NOTE | 2019-07-21 07:35 | PC.NURSE ---
Xray here to get patient for xrays, refuses at this time because is using the urinal. Told this RN that he leaves the urinal there because I pee all the time related to my diabetes . Explained to patient per radiology staff that cannot have the urinal in place for the films.
[2019-07-21 08:19] LABS: Glucose Point of Care 402 (65-105)
--- NOTE | 2019-07-21 08:20 | PC.NURSE ---
Call to Pharmacy, left message that needing novolog insulin.
[2019-07-21] MEDS: INSULIN ASPART (*BKC) 100 UNITS/ML 8 UNITS SUB-Q (08:54)
--- NOTE | 2019-07-21 09:21 | PC.NURSE ---
Rafita from [facility] contacted and states will be enroute.
--- NOTE | 2019-07-21 09:25 | PC.NURSE ---
In to give patient po medication. Explained that Rafita from [facility] will come and speak with patient about potential home health or placement. Pt states I need to be placed somewhere because I can't take care of myself at home. I don't have ramp or nothing and I need my wheelchair .
[2019-07-21] MEDS: lisinopriL 20 MG TABLET PO (09:26)
--- NOTE | 2019-07-21 09:33 | PC.NURSE ---
Rafita from [facility] at bedside to speak with patient.
--- NOTE | 2019-07-21 10:11 | PC.NURSE ---
During med reconciliation, states recently changed to vials of medicines from a pen and isn't sure if he is still supposed to be taking 35u bid
[2019-07-21 10:16] LABS: Glucose Point of Care 377 (65-105)
[2019-07-21 10:57] LABS: Magnesium 1.7 mg/dL (1.6-2.3)
--- NOTE | 2019-07-21 11:32 | ADMGEN ---
This patient, Leeroy Schaefer, was admitted to Medical Room 246-. Patient/family oriented to hospital policies and general routines including ID bracelet, bed and alarms, visiting hours, pain management, procedures, bathroom and other care routines, personal items, smoking policy, room service/diet, and visiting hours. Valuables list has been completed. Information on how to activate the Rapid Response Team has been discussed. Patient/Family are encouraged to report perceived risks to care and to ask questions if they do not understand what they are told or what they should do.
[2019-07-21 11:37] LABS: Glucose Point of Care 386 (65-105)
--- NOTE | 2019-07-21 15:16 | PM.IMHP ---
H&P: HPI History of Present Illness Chief complaint: Coccyx fracture/hyperglycemia/gait instability Narrative: Leeroy Schaefer is a 59 year old male who has a history of diabetes type 2 insulin dependent. The patient was discharged from here on 07/07/2019. The patient has difficulty controlling his diabetes and has peripheral neuropathy to his hands and feet. The patient stated that he was unable to get insulin for the last 2 weeks. He was placed on 35 units of NPH and regular human 70 /30 b.i.d. the patient stated he could not afford the pens and requested that he get a vial of insulin. The patient felt like the dosing was not correct with the bile insulin. Therefore he did not take it. The patient was on sliding scale insulin in the past and said that worked fairly well. The patient has been out of work since April. He has difficulty taking care of himself at home. The patient has applied for medical assistance and has not come through as of yet. The patient stated that he has been falling every day since he was discharged from the hospital on 07/07/2019. The patient stated he is having difficulty getting out of bed today and getting into his wheelchair. The patient said he stood up and scooted over to the wheelchair and slipped and fell and hit his buttocks on the left rales of the wheelchair. The patient stated that he slipped on the floor late on the floor for approximately 40 minutes. He said that he was able to to climb to his phone and call for help. The patient stated that he is no longer able to take care of himself at home. He states that he does not want to but he stated that he is requesting to be a DNR.Blood sugar was noted to be 444. He came down to 386. He was given NovoLog 8 units subcu once. His anion gap is 11. Hip and pelvis x-ray was read as no pelvic or right hip fracture per radiologist. Coccyx x-ray was read as dislocation at the 1st to 2nd coccygeal segments. Date of service 07/21/2019 Review of Systems Review of Systems: All systems reviewed & are unremarkable except as noted in HPI and below Constitutional: Constitutional: Reports as per HPI and Reports no additional constitutional complaints Eyes: Eyes: Reports as per HPI and Reports no additional eye complaints ENT: Reports system reviewed and no additional complaints, except as documented and Reports Normal hearing present Cardiovascular: Cardiovascular: Reports no additional cardiovascular complaints Respiratory: Respiratory: Reports no additional respiratory complaints and Reports no additional respiratory complaints Gastrointestinal: Gastrointestinal: Reports as per HPI and Reports no additional gastrointestinal complaints Musculoskeletal: Musculoskeletal: Reports no additional musculoskeletal complaints Integumentary/Breasts: Skin/Breast: Reports system reviewed and no additional complaints, except as docu and Reports as per HPI Neurologic: Reports system reviewed and no additional complaints, except as documented, Reports as per HPI and Reports Normal hearing present Psychiatric: Psychiatric: Reports no additional psychiatric complaints and Reports as per HPI Endocrine: Endocrine: Reports no additional endocrine complaints Hematologic/Lymphatic: Hematologic/Lymphatic: Reports no additional hematologic/lymphatic complaints Allergic/Immunologic: Allergic/Immunologic: Reports no additional allergic/immunologic complaints PMFSH Past Medical History Medical History (Updated 07/21/19 @ 15:30 by Jodi Andrew NP) Depression Diabetes Dx 2017 HTN (hypertension) Dx 2009 Hyperlipidemia Hypothyroidism Dx 1974 after [facility] for hyperthyroidism JOSH (obstructive sleep apnea) Recovering alcoholic quit drinking 1987 Type 2 diabetes mellitus with diabetic neuropathy Hands and feet Surgical History Surgical History (Updated 07/21/19 @ 15:30 by Jodi Andrew NP) H/O inguinal hernia repair Inguinal x2 with mesh History of cerv
[2019-07-21] MEDS: INSULIN ASPART (*BKC) 100 UNITS/ML SUB-Q (16:36)
[2019-07-21] MEDS: metFORMIN HCL 500 MG TABLET 1000 MG PO (16:36)
[2019-07-21] MEDS: GABAPENTIN 100 MG CAPSULE PO (16:36)
[2019-07-21 17:08] LABS: Glucose Point of Care 308 (65-105)
[2019-07-21 20:29] LABS: Glucose Point of Care 321 (65-105)
[2019-07-22 00:06] VITALS: PULSE 81; RESP 18; O2SAT 92
[2019-07-22] MEDS: LEVOTHYROXINE SODIUM 100 MCG TABLET 200 MCG PO (05:34)
[2019-07-22 05:47] LABS: Basophils Absolute Auto 0.1 K/mm3 (0.0-0.1); Basophils Percent Auto 0.9 % (0.2-1.2); Eosinophils Absolute Auto 0.1 K/mm3 (0-0.3); Eosinophils Percent Auto 1.8 % (0-4.4); Hemoglobin 11.6 g/dL (14.0-18.0); Immature Granulocyte Absolute 0.04 K/mm3 (0.00-0.031); Immature Granulocyte Percent A 0.5 % (0-0.5); Mean Corpuscular HGB Conc 35.2 g/dl (32-36); Mean Corpuscular Hemoglobin 29.5 pg (26-34); Mean Platelet Volume 10.3 fl (7.4-10.4); Monocytes Absolute Auto 0.4 K/mm3 (0.1-0.6); Monocytes Percent Auto 5.3 % (2.6-8.5); Neutrophils Absolute Auto 5.3 K/mm3 (1.3-6.7); Neutrophils Percent Auto 66.5 % (45.5-73.1); Platelet Count Result 192 k/mm3 (150-375); Red Blood Count 3.93 M/mm3 (4.6-6.20); Red Cell Distribution Width 14.9 % (11.5-14.5)
[2019-07-22 05:56] LABS: Blood Urea Nitrogen 22 mg/dL (9-20); Calcium 8.9 mg/dL (8.4-10.2); Carbon Dioxide 22 mmol/L (22-30); Chloride 100 mmol/L (98-107); Estimated CRCL calculation 119 ml/min; Estimated Glomerular Filt Rate > 60; Glucose 332 mg/dL (75-110); Potassium 3.9 mmol/L (3.4-5.0); Sodium 130 mmol/L (137-145)
[2019-07-22 06:00] VITALS: BP 154/82; PULSE 79; RESP 18; TEMP 36; O2SAT 97
[2019-07-22 08:04] LABS: Glucose Point of Care 382 (65-105)
[2019-07-22] MEDS: INSULIN ASPART (*BKC) 100 UNITS/ML SUB-Q ×2 (08:07→12:15)
[2019-07-22] MEDS: metFORMIN HCL 500 MG TABLET 1000 MG PO (08:14)
[2019-07-22] MEDS: ASPIRIN 81 MG CHEWABLE TABLET PO (08:14)
[2019-07-22] MEDS: SERTRALINE HCL 50 MG TABLET 150 MG PO (08:14)
[2019-07-22] MEDS: SIMVASTATIN 20 MG TABLET 40 MG PO (08:14)
[2019-07-22] MEDS: gemfibroziL 600 MG TABLET PO (08:14)
[2019-07-22] MEDS: GABAPENTIN 100 MG CAPSULE PO ×2 (08:15→12:17)
[2019-07-22] MEDS: DOCUSATE SODIUM 100 MG CAPSULE PO (09:58)
[2019-07-22] MEDS: ACETAMINOPHEN 325 MG TABLET 650 MG PO (09:58)
[2019-07-22 12:51] LABS: Glucose Point of Care 360 (65-105)
--- NOTE | 2019-07-22 13:05 | PM.DS ---
DS: Admitting Diagnosis Admitting Diagnosis Admitting Diagnosis: Fracture of coccyx, initial encounter for closed fracture DS: Discharge Diagnosis Discharge Diagnosis (1) Closed fracture of coccyx: Code(s): S32.2XXA - Fracture of coccyx, initial encounter for closed fracture Status: Acute Assessment and Plan: PT/OT ordered. Patient in less pain today. CC has found patient m[facility] care at [facility]; will accept patient today. Will discharge today PT/OT at [facility] if applicable f/u with [place] physician after discharge (2) Type 2 diabetes mellitus with diabetic neuropathy: Qualifiers: Diabetes mellitus supervisor long goods insulin use: with supervisor long goods use Qualified Code(s): E11.40 - Type 2 diabetes mellitus with diabetic neuropathy, unspecified; Z79.4 - [facility] (current) use of insulin Code(s): E11.40 - Type 2 diabetes mellitus with diabetic neuropathy, unspecified Status: Acute Assessment and Plan: BGL in 300s today; only on SSI after discussion yesterday - see H&P. Discuss his insulin regimen today and is willing to continue his current regimen and adjust as needed at [place] facility. Discussed importance of glucose control and better monitoring. Discharge on home insuin regimen Continue metformin F/u with [place] physician Further management per [place] physician (3) Depression: Qualifiers: Depression Type: unspecified Qualified Code(s): F32.9 - Major depressive disorder, single episode, unspecified Code(s): F32.9 - Major depressive disorder, single episode, unspecified Status: Acute Assessment and Plan: No acute issues today; in better spirits now that he has placement. Continue home medication (4) Hyperlipidemia: Qualifiers: Hyperlipidemia type: unspecified Qualified Code(s): E78.5 - Hyperlipidemia, unspecified Code(s): E78.5 - Hyperlipidemia, unspecified Status: Acute Assessment and Plan: Continue with simvastatin (5) JOSH (obstructive sleep apnea): Code(s): G47.33 - Obstructive sleep apnea (adult) (pediatric) Status: Acute Assessment and Plan: Continue with CPAP machine. (6) Hypothyroidism: Code(s): E03.9 - Hypothyroidism, unspecified Status: Acute Assessment and Plan: This is status post radiation treatment for hyperthyroidism. TSH >100 last hospital stay; unclear if patient was taking levothyroxine at home given financial issues Continue with levothyroxine. Recommend monitoring as outpatient with [place] physician f/u DS: Summary Hospital Course Reason for hospitalization: Coccyx fx s/p fall; placement Hospital Course: Patient is a 59 yo M with history of uncontrolled DMII with diabetic neuropathy, HTN, JOSH, among several other comorbidities who presented to the ER from home on 07/20 s/p fall while trying to get into his wheelchair from bed. Of note, patient recently had an admission/discharge roughly 2 weeks prior for hyperglycemia and gait instability; no placement was achieved at that time primarily due to financial reasons. While in the ER, patient was found to have a closed fracture of his coccyx and hyperglycemia. Patient admitted under the setting of finding placement as it was felt unsafe for patient to return home. Please see H&P for further details. Presenting VS: Temp Pulse Resp BP Pulse Ox 98.7 F 74 20 177/101 H 96 07/21/19 06:49 07/21/19 06:49 07/21/19 06:49 07/21/19 06:49 07/21/19 06:49 Presenting Pertinent labs: serum glucose 444. CBC, chemistry, UA otherwise unremarkable Micro: none Imaging: Chest X-Ray 07/21/19 07:22 IMPRESSION: 1. Minimal left basilar atelectasis/scarring. No other acute cardiopulmonary disease. Sacrum and
[2019-07-22 14:00] VITALS: BP 119/67; PULSE 79; RESP 16; TEMP 36.4; O2SAT 96
== END 2019-07-22 15:55 ==
LOC: ANHED 10:18 → ANH2MED 11:24
PROVIDERS: Emergency Medicine; Admitting Provider Hospitalist; Emergency Provider Emergency Medicine; Visit Provider Physician Assistant
DX: S32.2XXA Fracture of coccyx, initial encounter for closed fracture (principal); W19.XXXA Unspecified fall, initial encounter; R26.9 Unspecified abnormalities of gait and mobility; E11.65 Type 2 diabetes mellitus with hyperglycemia; Z87.891 Personal history of nicotine dependence; E78.5 Hyperlipidemia, unspecified; E03.9 Hypothyroidism, unspecified; G47.33 Obstructive sleep apnea (adult) (pediatric); E11.42 Type 2 diabetes mellitus with diabetic polyneuropathy; Z79.4 Long term (current) use of insulin; F32.9 Major depressive disorder, single episode, unspecified
CPT/HCPCS: 36415; 71046; 72220; 73502; 80048; 80053; 81001; 82948; 83735; 85025; 93005; 97162; 97165; 99285; A9270; G0378; G0379; J1815

== ENCOUNTER 2020-04-18 09:56 | Outpatient (CLI) | payer OTHER, SELFPAY ==
--- NOTE | ~2020-04-18 | MR_ITS ---
EXAMINATION: MR brain/brain stem wo con EXAM DATE: 04/18/2020 10:54 INDICATION: Hand tremors. Unable to ambulate. TECHNIQUE: Magnetic resonance imaging (MRI) of the brain/brain stem obtained without contrast. Shelbie al T1, axial diffusion, gradient echo (T2*), T1, T2, FLAIR sequences obtained. Correlation is made t o head CT 06/30/2019. FINDINGS: There are no areas of restricted diffusion to suggest acute infarction. There is no acute hemorrhage seen on the T2*, a hemosiderin sensitive sequence. No intraparenchymal brain mass lesion. There is mild periventricular and subcortical T2/FLAIR signal hyperintensity, nonspecific but probab ly related to small vessel ischemic disease (microangiopathy). There are no extra-axial collections . Flow voids are seen in the cerebral arteries on the T2-weighted sequences consistent with their ex pected patency. The orbits are unremarkable. Soft tissue is unremarkable. IMPRESSION: 1. No acute intracranial findings. 2. Mild microangiopathy. Reviewed, dictated and finalized at location A. O PERSONALITY
== END 2020-04-18 09:57 | disposition home or self-care (01) ==
PROVIDERS: PCP Family Medicine; Visit Provider Family Medicine
DX: R25.1 Tremor, unspecified (principal)
CPT/HCPCS: 70551

== ENCOUNTER 2020-07-17 09:13 | Outpatient (CLI) | payer OTHER, SELFPAY ==
--- NOTE | 2020-07-17 11:30 | NEURO_ITS ---
Impression: # Known insulin dependent diabetic complains of inability to ambulate. # Severe neuropathy. # Needle/EMG exam revealed neurogenic changes in the muscles. # Motor unit potentials are more in left lower extremity compared to the right. Nerve Conduction Studies Anti Sensory Summary Table Stim Site NR Peak (ms) P-T Amp (?V) Site1 Site2 Delta-P (ms) Dist (cm) Roly (m/s) Left Sup Fibular Anti Sensory (Ant Lat Mall) NO RESPONSE 14 cm NR 14 cm Ant Lat Mall 16.0 Right Sup Fibular Anti Sensory (Ant Lat Mall) NO RESPONSE 14 cm NR 14 cm Ant Lat Mall 16.0 Left Sural Anti Sensory (Lat Mall) NO RESPONSE Calf NR Calf Lat Mall 16.0 Right Sural Anti Sensory (Lat Mall) NO RESPONSE Calf NR Calf Lat Mall 16.0 Motor Summary Table Stim Site NR Onset (ms) O-P Amp (mV) Site1 Site2 Delta-0 (ms) Dist (cm) Roly (m/s) Left Peroneal Motor (Vastus Med) NO RESPONSE Ankle NR Popit NR Right Peroneal Motor (Vastus Med) NO RESPONSE Ankle NR Popit Ankle 0.0 Popit NR Left Tibial Motor (Abd Altman Brev) NO RESPONSE Ankle NR Knee NR Right Tibial Motor (Abd Altman Brev) NO RESPONSE Ankle NR Knee Ankle 0.0 Knee NR F Wave Studies NR F-Lat (ms) L-R F-Lat (ms) Left Peroneal (Mrkrs) (EDB) NO RESPONSE NR Right Peroneal (Mrkrs) (EDB) NO RESPONSE NR Left Tibial (Mrkrs) (Abd Hallucis) NO RESPONSE NR Right Tibial (Mrkrs) (Abd Hallucis) NO RESPONSE NR EMG Side Muscle Nerve Root Ins Act Fibs Amp Dur Recrt Comment Right AntTibialis Dp Br Fibular L4-5 Nml Nml Decr >12ms Reduced Right Gastroc Tibial S1-2 Nml Nml Decr >12ms Reduced Right Fibularis Long Sup Br Fibular L5-S1 Nml Nml Decr >12ms Reduced Right Flex Dig Long Tibial L5-S2 Nml Nml Decr >12ms Reduced Right Ext Dig Brev Dp Br Fibular L5, S1 Nml Nml Decr >12ms Reduced Left AntTibialis Dp Br Fibular L4-5 Nml Nml Decr >12ms Reduced Left Gastroc Tibial S1-2 Nml Nml Decr >12ms Reduced Left Fibularis Long Sup Br Fibular L5-S1 Nml Nml Decr >12ms Reduced Left Flex Dig Long Tibial L5-S2 Nml Nml Decr >12ms Reduced Left Ext Dig Brev Dp Br Fibular L5, S1 Nml Nml Decr >12ms Reduced Right QuadratusFem QuadFemoris L4-5, S1 Nml Nml Decr >12ms Reduced Left QuadratusFem QuadFemoris L4-5, S1 Nml Nml Decr >12ms Reduced MTDD
== END 2020-07-17 09:14 | disposition home or self-care (01) ==
PROVIDERS: PCP Family Medicine; Visit Provider Family Medicine
DX: R20.2 Paresthesia of skin (principal); G62.9 Polyneuropathy, unspecified; E11.9 Type 2 diabetes mellitus without complications
CPT/HCPCS: 95886; 95910

== ENCOUNTER 2022-08-14 07:18 | Outpatient (CLI) | payer MEDICARE, SELFPAY ==
[2022-08-14 19:12] LABS: Alanine Aminotransferase 33 U/L (6-50); Albumin Level 4.7 g/dL (3.5-5.1); Alkaline Phosphatase 79 U/L (38-126); Anion Gap 7 mmol/L (8-16); Aspartate Amino Transferase 35 U/L (17-59); Bilirubin,Total 0.5 mg/dL (0.2-1.3); Blood Urea Nitrogen 35 mg/dL (9-20); Calcium 8.6 mg/dL (8.4-10.2); Carbon Dioxide 30 mmol/L (22-30); Chloride 99 mmol/L (98-107); Cholesterol 158 mg/dL (0-200); Estimated Glomerular Filt Rate > 60; Glucose 250 mg/dL (65-110); HDL Direct 30 mg/dL; Potassium 4.2 mmol/L (3.4-5.0); Sodium 136 mmol/L (137-145); Triglycerides 356 mg/dL (<150)
[2022-08-14 19:14] LABS: Hemoglobin A1C 11.5 % (<5.7)
[2022-08-14 19:20] LABS: Creatinine Urine 82.8 mg/dL
[2022-08-14 19:24] LABS: LDL Cholesterol Direct 78 mg/dL
[2022-08-14 19:37] LABS: Creatinine Urine 82.6 mg/dL
[2022-08-14 19:43] LABS: Prostate Specific Antigen 0.8 ng/mL (< OR = 4.0)
[2022-08-14 19:44] LABS: MALB Creatinine Ratio 15.4 mg/g (0-30); Microalbumin Urine Random 12.7 mg/L (0-16.7)
[2022-08-14 20:18] LABS: Folic Acid 10.5 ng/mL (2.76->20)
== END 2022-08-14 07:19 | disposition home or self-care (01) ==
PROVIDERS: PCP Family Medicine; Visit Provider Nurse Practitioner Adult Health
DX: N40.0 Benign prostatic hyperplasia without lower urinary tract symptoms (principal); E11.40 Type 2 diabetes mellitus with diabetic neuropathy, unspecified; E03.9 Hypothyroidism, unspecified; F10.11 Alcohol abuse, in remission; E34.9 Endocrine disorder, unspecified; G63 Polyneuropathy in diseases classified elsewhere; Z12.5 Encounter for screening for malignant neoplasm of prostate
CPT/HCPCS: 36415; 80048; 80061; 80076; 82043; 82570; 82607; 82746; 83036; 84153; 84443; G0103

== ENCOUNTER → 2022-10-07 02:01 | Day surgery (SDC) | payer MEDICARE, MEDICAID, SELFPAY ==
[2022-09-30 15:49] VITALS: BMI 36.6
--- NOTE | 2022-09-30 16:28 | PC.NURSE ---
Addendum entered by Nelson Oviedo RN 10/01/22 16:15: Patient is holding his insulin and oral diabetic meds that morning. stopping vitamins on 10/04/22. takes metoprolol in the afternoon Original Note: Report to the Outpatient Waiting Room, entrance under the green pavilion located off [facility], at time _1000 on date _10/07/22. Planned Procedure Time: _1200_. Time changes happen often and if your time is changed the preop area will call you the afternoon before. - You and your visitor will be asked to self-screen and do not enter if you have any COVID symptoms. - A mask is optional within the hospital at this time. Patients may have clear liquids (water, carbonated beverages, clear teas, apple juice) until 3 hours prior to surgery with a maximum of 20 ounces. - No food from midnight until time of surgery - Infants may have breast milk until 4 hours before surgery, infant formula 6 hours prior to surgery. - Children will be allowed to drink immediately following surgery. If applicable, please bring a bottle or sippy cup to assist with drinking. Juice, water, soda, and popsicles are readily available. For infants on formula, please bring formula the day of surgery. Pacifiers are allowed. Take the following medications with a SIP of water the morning of surgery: Gabapentin, aspirin, brexpiprazole, fluoxetine__ DO NOT STOP ANY OF YOUR OTHER PRESCRIPTION MEDICATIONS PRIOR TO SURGERY ?EXCEPT THE FOLLOWING Medications to discontinue per physician _insulin, oral diabetic, vitamins(10/04/22) Date to take last dose Please no make-up, nail turkish, hairspray, perfume, deodorant, or body powder the day of surgery. No jewelry (including any body piercings) or valuables the day of surgery, leave them at home. Please take a shower or bath the night before, or the morning of, surgery with an antibacterial soap. Wear comfortable, loose fitting clothing. Children are encouraged to wear pajamas. - Jewelry must be removed prior to entering the operating room. Rings and piercings that are not removed may be cut off. - The hospital will not accept responsibility for valuables. - Please leave all valuables, including medications, at home the day of surgery. If you are going home after surgery, a licensed lumber driver must drive you home. - NO public transportation without another adult if you receive anesthesia. - We recommend that an adult stay with you for 24 hours following discharge. - We also recommend that you do not drive, make important decision, drink alcoholic beverages, or take any drugs that were not prescribed by your health care provider for at least 24 hours after your discharge time. For Pediatric surgeries, we recommend two adults accompany the child home. Follow any additional instructions given to you from your surgeon. If you or anyone in your household have experienced Covid symptoms in the past week, please notify your surgeon or the nurse liaison at the phone number below for possible testing. Telephone instructions given to Leeroy Schaefer and asked if any additional questions and then verbalized understanding. Patient advised to call surgeon office or pre surgery nurse liaison [phone] if any additional questions.
[2022-10-07] MEDS: LACTATED RINGERS 1,000 ML 30 ML IV CONT (10:20)
[2022-10-07 10:24] LABS: Glucose Point of Care 395 mg/dl (65-105)
[2022-10-07 10:31] VITALS: BP 146/75; PULSE 71; RESP 16; TEMP 36.3; O2SAT 95
--- NOTE | 2022-10-07 11:10 | SUR.PREOP ---
1108- REVIEWED PT BLOOD SUGAR OF [address] OLIVAS. UPDATED HIM THAT HIS BLOOD SUGAR HAS BEEN ELEVATED AND INSULIN IS BEING ADJUSTED. DR. OLIVAS WOULD LIKE TO CANCEL PROCEDURE D/T ELEVATED BLOOD SUGARS. DR. MCGEE UPDATED, DR. MCGEE STATED HE WILL COME TALK TO PT IN PRE OP.
--- NOTE | 2022-10-07 13:18 | SUR.PREOP ---
1138-DR. MCGEE TO SEE PT IN PRE OP. DISCUSSED ELEVATED BLOOD SUGAR AND ELEVATED HGBA1C. DR. MCGEE DECIDED TO CANCEL PROCEDURE TILL BLOOD SUGARS ARE UNDER CONTROL. D/T RISK OF INFECTION AND HEALING. piv DC'ED, CATH INTACT. PT DISCHARGED AT 1145. DISCHARGE INSTRUCTIONS GIVEN TO PT AND ALL QUESTIONS ANSWERED. .
== END | disposition home or self-care (01) ==
PROVIDERS: PCP Nurse Practitioner Adult Health; Visit Provider Surgery
DX: R22.32 Localized swelling, mass and lump, left upper limb (principal); E11.65 Type 2 diabetes mellitus with hyperglycemia; Z53.09 Procedure and treatment not carried out because of other contraindication
CPT/HCPCS: 82948; 99213; G0463; J7120

== ENCOUNTER 2023-07-14 12:07 | Outpatient (CLI) | payer MEDICARE, MEDICAID, SELFPAY ==
[2023-07-14 19:11] LABS: Hematocrit 41.4 % (42.0-52.0); Hemoglobin 13.8 g/dL (14.0-18.0); Mean Corpuscular HGB Conc 33.3 g/dl (32-36); Mean Corpuscular Hemoglobin 28.3 pg (26-34); Mean Corpuscular Volume 84.8 fl (80-100); Mean Platelet Volume 11.2 fl (7.4-10.4); Platelet Count Result 171 k/mm3 (150-375); Red Blood Count 4.88 M/mm3 (4.6-6.20); Red Cell Distribution Width 13.2 % (11.5-14.5); White Blood Count 8.7 K/mm3 (4.5-10.0)
[2023-07-14 20:53] LABS: Alanine Aminotransferase 26 U/L (6-50); Albumin Level 4.7 g/dL (3.5-5.1); Alkaline Phosphatase 73 U/L (38-126); Anion Gap 8 mmol/L (4-12); Aspartate Amino Transferase 63 U/L (17-59); Bilirubin,Total 0.9 mg/dL (0.2-1.3); Blood Urea Nitrogen 21 mg/dL (9-20); Calcium 9.1 mg/dL (8.4-10.2); Carbon Dioxide 30 mmol/L (22-30); Chloride 97 mmol/L (98-107); Cholesterol 153 mg/dL (0-200); Estimated Glomerular Filt Rate > 60; Folic Acid 10.5 ng/mL (2.76->20); Glucose 134 mg/dL (65-110); HDL Direct 31 mg/dL; LDL Cholesterol Direct 60 mg/dL; Potassium 3.6 mmol/L (3.4-5.0); Prostate Specific Antigen 0.7 ng/mL (< OR = 4.0); Sodium 135 mmol/L (137-145); Triglycerides 418 mg/dL (<150)
[2023-07-14 21:10] LABS: Creatinine Urine 27.5 mg/dL
[2023-07-14 21:13] LABS: MALB Creatinine Ratio 38.5 mg/g (0-30); Microalbumin Urine Random 10.6 mg/L (0-16.7)
[2023-07-14 21:13] LABS: Hemoglobin A1C 10.9 % (<5.7)
== END 2023-07-14 12:08 | disposition home or self-care (01) ==
PROVIDERS: PCP Nurse Practitioner Adult Health; Visit Provider Nurse Practitioner Adult Health
DX: E11.9 Type 2 diabetes mellitus without complications (principal); E03.9 Hypothyroidism, unspecified; D64.9 Anemia, unspecified; R53.83 Other fatigue; Z12.5 Encounter for screening for malignant neoplasm of prostate
CPT/HCPCS: 36415; 80053; 80061; 82043; 82565; 82607; 82746; 83036; 84153; 84443; 85027; G0103

== ENCOUNTER 2024-02-02 12:40 | Outpatient (CLI) | payer MEDICARE, MEDICAID, SELFPAY ==
[2024-02-02 21:24] LABS: Microalbumin Urine Random 19.6 mg/L (0-16.7)
[2024-02-02 21:29] LABS: Creatinine Urine 88.7 mg/dL; MALB Creatinine Ratio 22.1 mg/g (0-30)
[2024-02-02 21:49] LABS: LDL Cholesterol Direct 59 mg/dL
[2024-02-02 21:50] LABS: Alanine Aminotransferase 49 U/L (6-50); Albumin Level 4.9 g/dL (3.5-5.1); Alkaline Phosphatase 98 U/L (38-126); Anion Gap 7 mmol/L (4-12); Aspartate Amino Transferase 66 U/L (17-59); Bilirubin,Total 0.5 mg/dL (0.2-1.3); Blood Urea Nitrogen 21 mg/dL (9-20); Calcium 9.7 mg/dL (8.4-10.2); Carbon Dioxide 31 mmol/L (22-30); Chloride 94 mmol/L (98-107); Cholesterol 175 mg/dL (0-200); Estimated Glomerular Filt Rate > 60; Glucose 217 mg/dL (65-110); HDL Direct 36 mg/dL; Magnesium 1.7 mg/dL (1.6-2.3); Potassium 4.2 mmol/L (3.4-5.0); Sodium 132 mmol/L (137-145)
[2024-02-02 22:11] LABS: Thyroid Stimulating Hormone 0.927 uIU/mL (0.465-4.680)
[2024-02-02 23:04] LABS: Triglycerides 616 mg/dL (<150)
[2024-02-03 00:16] LABS: Hemoglobin A1C 7.6 % (<5.7)
== END 2024-02-02 12:41 | disposition home or self-care (01) ==
PROVIDERS: PCP Nurse Practitioner Adult Health; Visit Provider Internal Medicine Cardiovascular Disease
DX: E11.9 Type 2 diabetes mellitus without complications (principal); E03.9 Hypothyroidism, unspecified; Z12.5 Encounter for screening for malignant neoplasm of prostate; E83.42 Hypomagnesemia
CPT/HCPCS: 36415; 80053; 80061; 82043; 82565; 83036; 83735; 84153; 84443; G0103

== ENCOUNTER 2024-02-29 10:14 | Outpatient (CLI) | payer MEDICARE, MEDICAID, SELFPAY ==
--- NOTE | 2024-02-29 11:30 | NEURO_ITS ---
Impression: # Complains of gait dysfunction with foot drop. Not diabetic. ? # No responses could be obtained on motor or sensory stimulation. ? # Needle/EMG exam revealed decreased motor unit potentials distally without ? fibs, fasciculation or myotonia. ? # Findings suggestive of neuropathy; Needs further work up. Nerve Conduction Studies Anti Sensory Summary Table ?Stim Site NR Peak (ms) P-T Amp (?V) Site1 Site2 Delta-P (ms) Dist (cm) Roly (m/s) Left Sup Fibular Anti Sensory (Ant Lat Mall)??? NO RESPONSE 14 cm NR 14 cm Ant Lat Mall 16.0 Right Sup Fibular Anti Sensory (Ant Lat Mall)??? NO RESPONSE 14 cm NR 14 cm Ant Lat Mall 16.0 Left Sural Anti Sensory (Lat Mall)??? NO RESPONSE Calf NR Calf Lat Mall 16.0 Right Sural Anti Sensory (Lat Mall)??? NO RESPONSE Calf NR Calf Lat Mall 16.0 Motor Summary Table ?Stim Site NR Onset (ms) O-P Amp (mV) Site1 Site2 Delta-0 (ms) Dist (cm) Roly (m/s) Left Peroneal Motor (Vastus Med)??? NO RESPONSE Ankle NR Popit Ankle 0.0 Popit NR Right Peroneal Motor (Vastus Med)??? NO RESPONSE Ankle NR Popit Ankle 0.0 Popit NR Left Tibial Motor (Abd Altman Brev)??? NO RESPONSE Ankle NR Knee Ankle 0.0 Knee NR Right Tibial Motor (Abd Altman Brev)??? NO RESPONSE Ankle NR Knee Ankle 0.0 Knee NR F Wave Studies ?NR F-Lat (ms) L-R F-Lat (ms) Left Peroneal (Mrkrs) (EDB)??? NO RESPONSE NR Right Peroneal (Mrkrs) (EDB)??? NO RESPONSE NR Left Tibial (Mrkrs) (Abd Hallucis)??? NO RESPONSE NR Right Tibial (Mrkrs) (Abd Hallucis)??? NO RESPONSE NR EMG ?Side Muscle Nerve Root Ins Act Fibs Amp Dur Recrt Comment Right AntTibialis Dp Br Fibular L4-5 Nml Nml Nml Nml +1 Right Gastroc Tibial S1-2 Nml Nml Nml Nml +1 Right Fibularis Long Sup Br Fibular L5-S1 Nml Nml Nml Nml +1 Right Flex Dig Long Tibial L5-S2 Nml Nml Nml Nml +1 Right Ext Dig Brev Dp Br Fibular L5, S1 Nml Nml Nml Nml +1 Right QuadratusFem QuadFemoris L4-5, S1 Nml Nml Nml Nml Nml Left AntTibialis Dp Br Fibular L4-5 Nml Nml Nml Nml +1 Left Gastroc Tibial S1-2 Nml Nml Nml Nml +1 Left Fibularis Long Sup Br Fibular L5-S1 Nml Nml Nml Nml +1 Left Flex Dig Long Tibial L5-S2 Nml Nml Nml Nml +1 Left Ext Dig Brev Dp Br Fibular L5, S1 Nml Nml Nml Nml +1 Left QuadratusFem QuadFemoris L4-5, S1 Nml Nml Nml Nml Nml MTDD
== END 2024-02-29 10:15 | disposition home or self-care (01) ==
LOC: ANHNEURO 10:17
PROVIDERS: PCP Nurse Practitioner Adult Health; Visit Provider Nurse Practitioner Adult Health
DX: R20.2 Paresthesia of skin (principal); G63 Polyneuropathy in diseases classified elsewhere; E34.9 Endocrine disorder, unspecified
CPT/HCPCS: 95886; 95910

== ENCOUNTER 2024-03-22 19:02 | Emergency (ER) | payer MEDICARE, MEDICAID, SELFPAY ==
--- NOTE | ~2024-03-22 | CT_ITS ---
History: Fall PROCEDURE: CT head without contrast. COMPARISON: 06/30/2019 TECHNIQUE: Axial imaging of the head performed from the skull base to the vertex without IV contrast. Sagittal a nd coronal reformations obtained. DLP: 681 mGy-cm FINDINGS: The ventricles are normal in size, shape and position. There is no mass, mass effect or midline shift. There is no abnormal extra-axial fluid collection or intracranial hemorrhage. Visualized paranasal sinuses are clear. The mastoid air cells are well aerated. No acute displaced fractures within the overlying cranium. Impression: No acute intracranial hemorrhage or suspicious mass effect. Reviewed, dictated and finalized at location [facility] Impression: No acute intracranial hemorrhage or suspicious mass effect.
[2024-03-22 19:06] VITALS: BP 126/72; PULSE 82; RESP 15; TEMP 36.5; O2SAT 99
--- NOTE | 2024-03-22 20:18 | ED_ITS ---
HPI - Fall General Chief Complaint: Fall Stated Complaint: fell, unsteady gait, cut toe BGL 356 Time Seen by Provider: 03/22/24 19:15 History of Present Illness HPI Narrative: Patient is a 64-year-old male who presents to the emergency department this evening from urgent care due to a toe laceration and head injury. Patient states that he fell and cut his right 2nd toe on something. Patient did admit that he hit his head when he fell and is currently on Plavix. Patient initially was seen at urgent care but was sent here as they did not feel comfortable repairing his toe laceration given that he is a diabetic. He denies any loss of consciousness. Patient has been able to ambulate using a cane which he usually does since the fall. Denies any additional symptoms or concerns at this time. Tetanus not up-to-date. Related Data Home Medications ?Medication ?Instructions ?Recorded ?Confirmed ?Last Taken ?Type fluoxetine 40 mg capsule 40 mg PO DAILY 08/13/22 03/07/24 10/07/22 History brexpiprazole 1 mg tablet (Rexulti) 1 mg PO DAILY 08/24/22 03/07/24 10/07/22 History omega 8-dbn-ktb-fish oil 1,000 mg 2 cap PO BID 10/21/23 03/07/24 Unknown History (120 mg-180 mg) capsule (Fish Oil) deutetrabenazine 9 mg tablet 9 mg PO BID 03/07/24 03/07/24 Unknown History (Austedo) Allergies Allergy/AdvReac Type Severity Reaction Status Date / Time No Known Allergies Allergy Verified 03/22/24 19:04 Review of Systems Review of Systems: All systems are reviewed and are negative unless stated otherwise in the HPI. [facility] Past Medical History Medical History CAD (coronary artery disease) COPD (chronic obstructive pulmonary disease) Heart disease Heart attack GERD (gastroesophageal reflux disease) Anxiety Lipoma of back Occasional tremors Neuropathy associated with endocrine disorder Hypomagnesemia Anemia JOSH (obstructive sleep apnea) Tinea pedis Hyponatremia Type 2 diabetes mellitus with diabetic neuropathy Hands and feet Depression Recovering alcoholic quit drinking 1987 Hyperlipidemia Hypothyroidism Dx 1974 after JOYCE for hyperthyroidism HTN (hypertension) Dx 2009 Diabetes Dx 2017 Surgical History Surgical History S/P CABG x 1 History of cervical spinal surgery 1998 C4 and C5 laminectomy 2000 C6 and C7 laminectomy H/O inguinal hernia repair Inguinal x2 with mesh S/P CABG x 1 2009 Hx of cholecystectomy Family History Family History Father Diabetes mellitus Heart disease Mother Heart disease Cerebrovascular accident Diabetes mellitus Dementia Unknown Hypertension Cancer Social History Social History Social History: The patient tells me that his ex- is his durable power breaster for healthcare. The patient stated that he desires to be a DNR. He has 4 children. Up until April he works for [employer] . The patient stated that he lost his job because he used to many FMLA days due to illness. The patient stated he quit drinking in 1987 he was considered an alcoholic at that time. The patient quit smoking in 2009. Smoking packs per day: 2 Smoking cigarettes per day: 40.0 Years smoked: 35 Smoking pack-years: 70.00 Smoking status: Former smoker Tobacco type: cigarettes Smoking end date: 06/28/09 Alcohol intake: never Alcohol use details: Heavy drinker until 1989. Substance use: never Last use: 2009 Lack of Transportation: YES Lack of Food: Sometimes True Current Housing: I Have Housing Concerned About Future Housing: No Difficulty Paying Gas/Electric Bills: No Difficulty Paying for Meds: No Currently Unemployed: No Education: Associate Degree Difficulty w/ Childcare or Family Care: No Living arrangements: other Additional living arrangements comments: low income apartment Occupation/Education: unemployed Additional occupation/education comments: Lost job in late April,. Gender identity (if verbalized by the patient): Male Spiritual care concerns: No Agree to blood products: Yes Exam Narrative: General: Alert, awake, afebrile, in no acute distress. HEENT: PERRL, no rhinorrhea, no post nasal drip, oropharynx clear. Neck: Trachea midline, no JVD, no lymphadenopathy. Cardiovascular: Regular rate and rhythm, no murmurs, rubs or gallops, no peripheral edema. Respiratory: Clear to auscultation bilaterally, no tachypnea, no wheezing, no rhonchi, no rubs, no respiratory distress. Abdomen: Soft, nontender, nondistended, no rebound, no guarding, no peritoneal signs. Musculoskeletal: No joint swelling or deformity, normal muscle tone. Skin: Linear 2 cm laceration to the plantar aspect of the right 2nd toe, no active bleeding. Psychiatric: Alert and oriented, normal behavior and judgment for situation. Neurological: Alert and oriented to person, place, and time. Follows all commands. No focal deficits, speech is clear and fluent. Course Vital Signs Vital signs: Vital Signs Temperature 97.7 F 03/22/24 19:06 Pulse Rate 82 03/22/24 19:06 Respiratory Rate 15 03/22/24 19:06 Blood Pressure 126/72 03/22/24 19:06 Pulse Oximetry 99 03/22/24 19:06 Oxygen Delivery Room Air 03/22/24 19:06 Temperature 97.7 F 03/22/24 19:06 Pulse Rate 82 03/22/24 19:06 Respiratory Rate 15 03/22/24 19:06 Blood Pressure 126/72 03/22/24 19:06 Pulse Oximetry 99 03/22/24 19:06 Oxygen Delivery Room Air 03/22/24 19:06 Procedures Laceration Laceration 1: Date: 03/22/24 Time: 20:22 Site: other (Right foot/toe) Side (If applicable): right Size (cm): 2 Description: linear Depth: simple, single layer Local Anesthetic: lidocaine 1% Amount of anesthesia used (mL): 2 Pre-repair: wound explored, irrigated and deep structures intact ====== Skin Level ====== Skin layer closed with: nylon Size (cm): 5-0 Number of sutures: 6 Technique: simple, interrupted ====== Subcutaneous Layer ====== ====== Muscle Layer ====== ====== Tendon Layer ====== MDM - Fall MDM Narrative Medical decision making narrative: The patient was evaluated by myself in the emergency department. History is obtained from patient who is an independent historian and physical exam was performed. External medical records were reviewed at this time. Patient's tetanus was updated today. Imaging studies obtained included CT brain without IV contrast which was ind ependently interpreted by me revealing no acute process, which is pending final radiology interpretation. Differential diagnosis considerations include lacerations, abrasions, intracranial hemorrhage. Comorbidities impacting this visit include history of diabetes mellitus. I have evaluated and discussed social determinants of health with the patient that could potentially impact subsequent diagnosis and treatment plans. On repeat assessment of the patient, reevaluation revealed that the patient is doing well and is in no acute distress. Patient symptoms have improved since he arrived to our emergency department. Repeat vital signs were all reviewed and noted to be stable. Differential diagnosis and treatment plan were discussed with the patient at bedside. Patient agrees with discussion and after shared medical decision making agrees with discharge. All questions were answered to the patient's satisfaction. Patient will follow up with his PCP in 1 week. He was instructed that the 6 sutures that were placed today will need to be removed by medical professional within the next 7-10 days. A script for cephalexin was sent to patient's pharmacy to take as prescribed. Patient was provided with strict return precautions and instructed to return to the emergency department if any new or worsening symptoms develop. The patient was discharged in stable condition. Discharge Plan Discharge Clinical Impression: Fall from ground level, Head injury, Laceration Patient Disposition: Home, Self-Care Condition: Improved Instructions: Antibiotic Form, Laceration (ED), Head Injury (ED) Additional Instructions: Please follow-up with your family doctor within the next week as the 6 sutures that were placed today will need to be removed by medical professional within the next 7-10 days. Return to the emergency department if any new or worsening symptoms develop. Take the prescribed antibiotic as instructed. Patient Language: Cymro Prescriptions: New cephalexin 500 mg capsule 500 mg PO Q6H 7 Days Qty: 28 0RF No Action fluoxetine 40 mg capsule 40 mg PO DAILY Rexulti 1 mg tablet 1 mg PO DAILY primidone 250 mg tablet 250 mg PO DAILY Qty: 90 3RF losartan 25 mg tablet 25 mg PO DAILY Qty: 90 3RF metoprolol succinate 25 mg tablet extended release 24 hr 12.5 mg PO DAILY Qty: 90 3RF Austedo 9 mg tablet 9 mg PO BID nitroglycerin 0.4 mg tablet, sublingual 0.4 mg sublingual Q5M PRN (Reason: Chest Pain) Qty: 100 0RF Rx Instructions: do not exceed 3 doses per episode omega 9-gty-vhl-fish oil [Fish Oil] 1,000 mg (120 mg-180 mg) capsule 2 cap PO BID aspirin 81 mg tablet,chewable 81 mg PO DAILY Qty: 90 3RF levothyroxine 200 mcg tablet See Rx Instructions .ROUTE .COMPLEX Qty: 90 0RF Dose Instruction: TAKE 1 TABLET BY MOUTH ONCE DAILY. TAKE WITH 25MCG TO EQUAL 225MCG DAILY Rx Instructions: TAKE 1 TABLET BY MOUTH ONCE DAILY. TAKE WITH 25MCG TO EQUAL 225MCG DAILY metformin 1,000 mg tablet See Rx Instructions .ROUTE .COMPLEX Qty: 180 0RF Dose Instruction: Take 1 tablet by mouth twice daily Rx Instructions: Take 1 tablet by mouth twice daily levothyroxine 25 mcg tablet See Rx Instructions .ROUTE .COMPLEX Qty: 90 0RF Dose Instruction: Take 1 tablet by mouth once daily Rx Instructions: Take 1 tablet by mouth once daily omeprazole 40 mg capsule,delayed release(DR/EC) See Rx Instructions .ROUTE .COMPLEX Qty: 90 0RF Dose Instruction: Take 1 capsule by mouth once daily Rx Instructions: Take 1 capsule by mouth once daily gabapentin 800 mg tablet 800 mg PO TID Qty: 270 0RF Mounjaro 10 mg/0.5 mL pen injector See Rx Instructions .ROUTE .COMPLEX Qty: 6 1RF Dose Instruction: INJECT 10 MG SUBCUTANEOUSLY ONCE A WEEK Rx Instructions: INJECT 10 MG SUBCUTANEOUSLY ONCE A WEEK (DME) pen needle, diabetic 31 gauge x 5/16 needle See Rx Instructions .ROUTE .COMPLEX Qty: 100 3RF Dose Instruction: USE TWICE DAILY WITH LEVIMIR Rx Instructions: USE TWICE DAILY WITH LEVIMIR insulin glargine [Lantus Solostar U-100 Insulin] 100 unit/mL (3 mL) insulin pen 25 unit subcut BID Qty: 15 3RF rosuvastatin 40 mg tablet See Rx Instructions .ROUTE .COMPLEX Qty: 90 0RF Dose Instruction: Take 1 tablet by mouth once daily Rx Instructions: Take 1 tablet by mouth once daily torsemide 20 mg tablet See Rx Instructions .ROUTE .COMPLEX Qty: 90 0RF Dose Instruction: Take 1 tablet by mouth once daily Rx Instructions: Take 1 tablet by mouth once daily Follow-up/Referrals: Michelle Drake APRN [Primary Care Provider] - 1 Week Time of Disposition: 20:22
[2024-03-22] MEDS: TETANUS,DIPHTHERIA,AC PERTUSSIS ADULT (0.5 ML) BOOSTRIX IM (21:08)
[2024-03-22 21:22] VITALS: BP 152/90; PULSE 87; RESP 15; O2SAT 97
--- OUTSIDE RECORDS SUMMARY | 2024-03-24 03:33 | XMS_ITS ---
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 Name Role Phone Caldeorn Keen MD Primary Care Provider UnavailBhavya Arias Unavailable [phone] Bekah Hurtado Unavailable [phone] REASON FOR VISIT anxiety, depression, trauma Medications Medication SIG (Take, Route, Frequency, Duration) Notes Start Date End Date Status Omeprazole 40 MG 1 capsule 30 minutes before morning meal Orally Once a day *Pick strength-form from [employer] for eRX* 06/21/2023 Active Austedo 9 MG 1 tablet with food Orally Twice a day for 30 days XR D/C- PA denied Active FLUoxetine HCl 40 MG 1 capsule Oral Once a day for 30 days Active Nitroglycerin 0.4 MG Sublingual 06/21/2023 Active Losartan Potassium 25 MG 1 tablet Orally Once a day 06/21/2023 Active Rosuvastatin Calcium 40 MG Oral 06/21/2023 Active Levothyroxine Sodium 200 MCG Oral in addition to 25 MCG 06/21/2023 Active Torsemide 20 MG as directed Oral 06/21/2023 Active Insulin Lispro (1 Unit Dial) 100 UNIT/ML Subcutaneous 15 UNITS AC 06/21/2023 Active metFORMIN HCl 1000 MG 1 tablet with a meal Oral twice a day 06/21/2023 Active ULTRA-FINE SHORT PEN NEEDLE 31 gauge x 5/16 MISCELLANEOUS *Reorder from [employer] for eRx and Interaction Alerts* 06/21/2023 Active Levemir FlexPen 100 unit/mL (3 mL) 32 SUBCUTANEOUS bid 06/21/2023 Active Levothyroxine Sodium 25 MCG Oral in addition to 200 mcg 06/21/2023 Active Metoprolol Succinate ER 25 MG 0.5 tablets Oral Once a day 06/21/2023 Active Primidone 250 MG Oral 06/21/2023 Ac tive Tamsulosin HCl 0.4 MG Oral 06/21/2023 Active Mounjaro 10 MG/0.5ML as directed Subcutaneous 10 units Active DULoxetine HCl 60 MG 1 cap Orally Once a day for 30 days Active Gabapentin 800 MG 1 tablet Orally three times a day Active DULoxetine HCl 30 MG 1 capsule Orally Once a day for 30 days Active traZODone HCl 50 MG 1 tablet at bedtime Oral at bedtime for 30 days Active Rexulti 1 MG 1 tablet Oral Once a day for 30 days Active Social History Tobacco Use: Social History Observation Description Date Details (start date - stop date) Former Smoker NA - NA Sex Assigned At : Social History Observation Description Sex Assigned At Male Tobacco Control (Standard) Question Answer Notes Tobacco use: Former smoker How long has it been since you last smoked? Grea ter than 10 years Additional Findings: Tobacco non-user Current no nsmoker Encounters Encounter Location Date Provider Diagnosis [facility] [employer] [facility] [address] [place] [address] [address] 02/17/2024 Bekah Hurtado Major depressive disorder, recurrent severe without psychotic features F33.2 ; Generalized anxiety disorder F41.1 and Post-traumatic stress disorder, chronic F43.12 Assessments Encounter Date Diagnosis (ICD Code) Assessment Notes Treatment Notes Treatment Clinical Notes Section Notes 02/17/2024 Major depressive disorder, recurrent severe without psychotic features (ICD-10 - F33.2) 02/17/2024 Generalized anxiety disorder (ICD-10 - F41.1) 02/17/2024 Post-traumatic stress disorder, chronic (ICD-10 - F43.12) 02/17/2024 Other Cleint reports he has a number of things he has not been taking care of (paper work, laundry). Therapist actively listened to client and asked questions for clarification. Therapist assisted client by utilizing a cognitive behavioral intervention to help client explore setting up a routine,creating healthier self talk, and also provided resources to client related to transportation. PHQ=16 moderately severe DIANA=13 moderate Plan Of Treatment Next Appt Details Follow Up: 2 Weeks, Reason: therapy follow up Provider Name:Bhavya Lopez , 04/25/2024 11:30:00 AM, [address], [facility] [address], [place], [address], Progress Notes * JACQUELIN CONRAD DDOB:[birth year] (64 yo M)Acc No.[id number]:02/17/2024 Patient:?JACQUELIN CONRAD Provider:?BKEAH HURTADO LCSW :1960???Age:64 Y???Sex:Male Thomas e:02/17/2024 Phone: Address:[address], [address] [place], [place] [id number] Pcp:Calderon Keen MD Data: * Time Tracker: * Date Start Time End Time Duration User Type Captured By Mode Notes 02/17/2024 01:01 PM 01:55 PM 00:54:00 Therapist Bekah Hurtado anual * Chief Complaints: * ???1. Anxiety. 2. Depression . 3. Trauma. * HPI: ???Functional Status:? Client is here today for psychotherapy to treat anxiety, depression, and trauma issues.? Based on our session, I think the patient is making moderae progress.? At this time I do not recommend changes to the treatment plan.? I do not think the patient poses significant risk of harm to self or others at this time.? Discussed continued treatment with patient. ???Depression screening:?PHQ-9?Little interest or pleasure in doing things?More than half the days,?Feeling down, depressed, or hopeless?More than half the days,?Trouble falling or staying asleep, or sleeping too much?More than half the days,?Feeling tired or having little energy?More than half the days,?Poor appetite or overeating?More than half the days,?Feeling bad about yourself or that you are a failure, or have let yourself or your family down?Nearly every day,?Trouble concentrating on things, such as reading the newspaper or watching television?Nearly every day,?Moving or speaking so slowly that other people could have noticed; or the opposite, being so fidgety or restless that you have been moving around a lot more than usual?Not at all,?Thoughts that you would be better off or of hurting yourself in some way?Not at all,?Total Score?16,?Interpretation?Moderately Severe Depression.?Intervention?Depression Screening Findings?Positve,?Follow-Up for Depression?Mental health treatment assessment, Patient follow-up to return when and if necessary,?Suicide Risk Assessment Performed?02/17/2024 Client denies plan or intent to harm himself,?Additional Evaluation for Depression?Psychiatric interview and evaluation,?Name of the standardized tool used for adult depression screening:?Patient Health Questionnaire (PHQ-9).?Depression Screening:?DIANA-7 (2018 Edition)?Feeling nervous, anxious, or on edge?Nearly every day,?Not being able to stop or control worrying?Nearly every day,?Worrying too much about different things?More than hafl the days,?Trouble relaxing?More than half the days,?Being so restless that it is hard to sit still?Several days,?Becoming easily annoyed or irritable?Not at all,?Feeling afraid as if something awful might happen?More than half the days,?Total DIANA-7 Score?13,?Interpretation of Total?(10 to 14) Moderate.? * Behavioral History: ???Past psychiatric Hospitalization:Yes.?When and where was the last admission?:1996-.?for aggressive behavior ???History of suicidal attempt?:No.? * Family History:?Maternal Aun t: Bipolar disorder .?Father: Diabetes mellitus .?Mother: Depressive disorder , Hypothyroidism , Family history of cancer .?Paternal Grandfather: Family history of cancer , Malignant neoplastic disease .?Paternal Grandmother: Malignant neoplastic disease , Family history of cancer .?Maternal Grandfather: Family history of cancer .?Maternal Grandmother: Schizophrenia , Family history of cancer .? * Social History:?Tobacco Use:?Tobacco Control (Standard)?Tobacco use:?Former smoker,?How long has it been since you last smoked??Greater than 10 years,?Additional Findings: Tobacco non-user?Current nonsmoker.? * Medications:?Taking traZODon e HCl 50 MG Tablet 1 tablet at bedtime Oral at bedtime , Taking DULoxetine HCl 30 MG Capsule Delayed Release Particles 1 capsule Orally Once a day , Taking DULoxetine HCl 60 MG Capsule Delayed Release Particles 1 cap Orally Once a day , Taking Gabapentin 800 MG Tablet 1 tablet Orally three times a day , Taking Tamsulosin HCl 0.4 MG Capsule Oral , Taking Mounjaro 10 MG/0.5ML Solution Pen-injector as directed Subcutaneous 10 units, Taking Levothyroxine Sodium 25 MCG Tablet Oral , Notes to Pharmacist: in addition to 200 mcg, Taking Metoprolol Succinate ER 25 MG Tablet Extended Release 24 Hour 0.5 tablets Oral Once a day , Taking ULTRA-FINE SHORT PEN NEEDLE 31 gauge x 5/16 NEEDLE, DISPOSABLE MISCELLANEOUS , Notes to Pharmacist: *Reorder from [facility] for eRx and Interaction Alerts*, Taking Levemir FlexPen 100 unit/mL (3 mL) INSULIN PEN (ML) 32 SUBCUTANEOUS , Notes to Pharmacist: bid, Taking Primidone 250 MG Tablet Oral , Taking Insulin Lispro (1 Unit Dial) 100 UNIT/ML Solution Pen-injector Subcutaneous , Notes to Pharmacist: 15 UNITS AC, Taking metFORMIN HCl 1000 MG Tablet 1 tablet with a meal Oral twice a day , Taking Levothyroxine Sodium 200 MCG Tablet Oral , Notes to Pharmacist: in addition to 25 MCG, Taking Torsemide 20 MG Tablet as directed Oral , Taking Rosuvastatin Calcium 40 MG Tablet Oral , Taking Omeprazole 40 MG Capsule Delayed Release 1 capsule 30 minutes before morning meal Orally Once a day , Notes to Pharmacist: *Pick strength-form from [facility] for eRX*, Taking Nitroglycerin 0.4 MG Tablet Sublingual Sublingual , Taking Losartan Potassium 25 MG Tablet 1 tablet Orally Once a day , Taking Austedo 9 MG Tablet 1 tablet with food Orally Twice a day , Notes to Pharmacist: TERRI D/C- PA denied, Notes: take Austedo twice a day, Taking FLUoxetine HCl 40 MG Capsule 1 capsule Oral Once a day , Taking Rexulti 1 MG Tablet 1 tablet Oral Once a day , Medication List reviewed and reconciled with the patient * Examination: ???Psychiatry: ???Client is casually groomed and oriented X 3. Assessment: * Assessment: 1.?Major depressive disorder , recurrent severe without psychotic features - F33.2 (Primary)???2.?Generalized anxiety disorder - F41.1???3.?Post-traumatic stress disorder, chronic - F43.12??? Plan: * Treatment: * Procedure Codes:?51130 PSYCH OTHERAPY W/PATIENT 60 MINUTES, 17954 BEHAV ASSMT W/SCORE & DOCD/STAND INSTRUMENT * Follow Up:?2 Weeks (Reason: therapy follow up) * Billing Information: * Visit Code:? * Procedure Codes:? 21928 PSYCHOTHERAPY W/PATIENT 60 MINUTES. 21487 BEHAV ASSMT W/SCORE & DOCD/STAND INSTRUMENT. * D WASTE TECHNICIAN Sign off status: Completed Signatures: No Ad Hoc Signature Added true * Provider:?BEKAH HURTADO LCSW Date:? Generated for Amrit hernandez/Karin/Shaina on:?03/24/2024 03:33 AM SOLID WASTE TECHNICIAN History and Physical Notes * HPI (History of Present Illness) Category Sub-Category Detail Notes Category Not es Depression screening PHQ-9 Little inte rest or pleasure in doing things: More than half the days Feeling down, depressed, or hopeless: Mo re than half the days Trouble falling or staying a sleep, or sleeping too much: More than half the days Feeling tired or having little energy: M ore than half the days Poor appetite or overeating: More than h intermediate the days Feeling bad about yourself o r that you are a failure, or have let yourself or your family down: Nearly every day Trouble concentrating on thi ngs, such as reading the newspaper or watching television: Nearly every day Moving or speaking so slowly that other people could have noticed; or the opposite, being so fidgety or restless that you have been moving around a lot more than usual: Not at all Thoughts that you would be b mihaela off or of hurting yourself in some way: Not at all Total Score: 16 Interpretation: Moderately Severe Depres héctor Intervention Depression Screening Findings: P ositve Follow-Up for Depression: [facility] treatment assessment, Patient follow-up to return when and if necessary Suicide Risk Assessment Performed: 02/16 Client denies plan or intent to harm himself Additional Evaluation for De pression: Psychiatric interview and evaluation Name of the standardized too l used for adult depression screening:: Patient Health Questionnaire (PHQ-9) Functional Status Client is here today for psychotherapy to treat anxiety, depression, and trauma issues. Based on our session, I think the patient is making moderae progress. At this time I do not recommend changes to the treatment plan. I do not think the patient poses significant risk of harm to self or others at this time. Discussed continued treatment with patient. Depression Screening DIANA-7 (2018 Edition) Feeling nervous, anxious, or on edge: Nearly every day Not being able to stop or control worryi ng: Nearly every day Worrying too much about different things : More than hafl the days Trouble relaxing: More than half the day s Being so restless that it is hard to sit still: Several days Becoming easily annoyed or irritable: No t at all Feeling afraid as if something awful nadeen ht happen: More than half the days Total DIANA-7 Score: 13 Interpretation of Total: (10 to 14) Mode rate Examination Category Sub-Category Detail Notes Category Not es Psychiatry Client is casua lly groomed and oriented X 3
--- OUTSIDE RECORDS SUMMARY | 2024-03-24 03:33 | XMS_ITS | CONTINUITY OF CARE DOCUMENT ---
Author Name zuleika to Address Unknown Organization [facility] Address [address] [place] [address] Phone [phone] Care Team Providers Care Sorter [employer] Name Role Phone Anuradha CROCKER, Dolores Pompa Unavailable DAVID CROCKER, SAGE Unavailable [phone] LATIA CROCKER, CORAL Unavailable PROBLEMS Condition Status Date Provider Notes Shortness of breath (SOB) active Fahad Wich Gallstones active Dolores Ling MD Palpitations active Dolores Ling MD Abnormal cardiovascular stress test active Tripp Plurad Snoring active Tripp Plurad CAD active Tripp Plurad Hx of tobacco abuse active Tripp Plurad GERD active Tripp Plurad Anxiety active Tripp Plurad HTN essential active Tripp Plurad Hyperlipidemia active Tripp Plurad Hypothyroidism active Tripp Plurad DM - type 2 active Tripp Plurad Family History Coronary Hear t Disease male < 55: active ? Tripp Plurad ENCOUNTERS Date Type Provider Location Encounter Diag nosis - In-person encounter Office Visit Dolores Ling MD [facility] Gallstones - In-person encounter Office Visit Dolores Ling MD [facility] - In-person encounter Office Visit Dolores Ling MD [facility] Palpitations - In-person encounter Office Visit Dolores Ling MD [facility] Abnormal cardiovascular stress test - In-person encounter Office Visit Dolores Ling MD [facility] - In-person encounter Office Visit Dolores Ling MD [facility] Family History Coronary Heart Disease male < 55:DM - type 2HypothyroidismHyperlipidemi aHTN essentialAnxietyGERDHx of tobacco abuseCADSnoring VITAL SIGNS Date Observation Value Provider Body Mass Index (Ratio) 39.02 kg/m2 Lewis Ling MD blood pressure, cuff size regular Cy thom Echevarria blood pressure, diastolic 98 mm[Hg] Cy thom Echevarria blood pressure, systolic 160 mm[Hg] Marine shalapedro Echevarria oxygen saturation, oximetry 97 % Renita Echevarria respiratory rate E&M 16 /min Renita Echevarria pulse rate 86 /min Renitajace Huitron l weight E&M 272 [lb_av] Renitajace Fitzpatrickbel l height E&M 70 [in_i] Renita Fitzpatrickbel l Body Mass Index (Ratio) 37.88 kg/m2 Lewis Ling MD blood pressure, diastolic 76 mm[Hg] Da isma Mack blood pressure, systolic 134 mm[Hg] Dac ia Mack oxygen saturation, oximetry 95 % Carol Mack respiratory rate E&M 16 /min Carol V oss pulse rate 64 /min Carol Mack weight E&M 264 [lb_av] Carol Mack height E&M 70 [in_i] Carol Mack Body Mass Index (Ratio) 37.45 kg/m2 Lewis Ling MD blood pressure, diastolic 80 mm[Hg] Da isma Mack blood pressure, systolic 126 mm[Hg] Dac ia Mack oxygen saturation, oximetry 95 % Carol Mack respiratory rate E&M 16 /min Carol V oss pulse rate 73 /min Carol Mack weight E&M 261 [lb_av] Carol Mack height E&M 70 [in_i] Carol Mack Body Mass Index (Ratio) 36.47 kg/m2 Tripp Plurad blood pressure, diastolic 74 mm[Hg] Mary Dunn blood pressure, systolic 132 mm[Hg] Vvii Dunn oxygen saturation, oximetry 98 % Yi Dunn respiratory rate E&M 18 /min Alexander Dunn pulse rate 60 /min Yi Jordan nson weight E&M 254.2 [lb_av] Yi Smith enson height E&M 70 [in_i] Yi Jordan nslynda Body Mass Index (Ratio) 39.11 kg/m2 Lewis Ling MD blood pressure, diastolic 79 mm[Hg] Mary Dunn blood pressure, systolic 132 mm[Hg] Vivi uDnn oxygen saturation, oximetry 98 % Yi Dunn respiratory rate E&M 18 /min Alexander Dunn pulse rate 63 /min Yi lucas weight E&M 272.6 [lb_av] Yi Smith enson height E&M 70 [in_i] Yi Jordan nson Body Mass Index (Ratio) 38.74 kg/m2 Tripp Plurad blood pressure, diastolic 80 mm[Hg] Da isma Mack blood pressure, systolic 142 mm[Hg] Dac ia Mack oxygen saturation, oximetry 97 % Carol Mack respiratory rate E&M 16 /min Carol V oss pulse rate 65 /min Carol Mack height E&M 70 [in_i] [facility] weight E&M 270 [lb_av] [facility] ALLERGIES No Known Drug Allergies RESULTS Date Observation Value Provider Reference Range Interpretation Location prothrombin time (patient) 10.3 s [facility] 9.1-12.0 international normalized ratio (INR) 1.0 [facility] 0.8-1.2 calcium, serum 9.8 mg/dL [facility] 8.7-10.2 carbon dioxide, venous blood 20 mmol/L [facility] 20-29 chloride, serum 104 mmol/L [facility] 96-106 potassium, serum 4.9 mmol/L [facility] 3.5-5.2 sodium, serum 139 mmol/L [facility] [phone]/12/ 15 urea nitrogen/creatinine ratio, serum 25 [facility] 9-20 High eGFR if 91 mL/min/{1. 73_m2} [facility] >59 eGFR if not 79 mL/min/{1. 73_m2} [facility] >59 creatinine, serum 1.04 mg/dL [facility] 0.76-1.27 urea nitrogen, blood 26 mg/dL [facility] 6-24 High blood glucose, random 129 mg/dL [facility] 65-99 High basophil count, absolute 0.0 x10E3/uL [facility] 0.0-0.2 Eosinophil Absolute Count 0.2 X10E3/UL [facility] 0.0-0.4 monocyte count, blood, automated 0.4 X10E3/UL [facility] 0.1-0.9 lymphocyte count, blood, automated 1.9 X10E3/UL [facility] 0.7-3.1 Absolute Neutrophils 3.7 X10E3/UL [facility] 1.4-7.0 basophils as percent of blood leukocytes 1 % [facility] Not Estab. eosinophils as percent of blood leukocytes 3 % [facility] Not Estab. monocytes as percent of blood leukocytes 6 % [facility] Not Estab. lymphocytes as percent of blood leukocytes 31 % [facility] Not Estab. neutrophils as percent of blood leukocytes 59 % [facility] Not Estab. platelet count 216 X10E3/UL [facility] 368-654 6282/12/ 15 red blood cell distribution width 13.2 % [facility] 12.3-15.4 mean corpuscular hemoglobin concentration, RBC 35.3 G/DL [facility] 31.5-35.7 mean corpuscular hemoglobin, RBC 29.0 pg [facility] 26.6-33.0 mean corpuscular volume, RBC 82 fL [facility] 79-97 hematocrit, blood 37.7 % [facility] 37.5-51.0 hemoglobin, blood 13.3 g/dL [facility] 13.0-17.7 erythrocyte (RBC) count 4.58 X10E6/UL [facility] 4.14-5.80 leukocyte count, blood 6.1 X10E3/UL [facility] 3.4-10.8 hemoglobin A1C, blood, as % of total hemoglobin 6.7 % [facility] 4.8-5.6 High lipoprotein, beta, serum, point, quantitative, calculated 82 mg/dL [facility] 0-99 very low density lipoproteins 32 mg/dL [facility] 5-40 HDL cholesterol, serum 31 mg/dL [facility] >39 Low triglyceride, serum, random 161 mg/dL [facility] 0-149 High cholesterol, serum 145 mg/dL [facility] 107-285 9841/12/ 05 alanine aminotransferase (SGPT), serum 23 1/L [facility] 0-44 aspartate aminotransferase (SGOT), serum 17 1/L [facility] 0-40 alkaline phosphatase, serum 48 1/L [facility] 39-117 bilirubin, serum, total 0.3 mg/dL [facility] 0.0-1.2 albumin/globulin ratio, serum 2.0 [facility] 1.2-2.2 globulin, serum 2.3 [facility] 1.5-4.5 albumin, serum 4.7 g/dL [facility] 3.5-5.5 protein, total, serum 7.0 g/dL [facility] 6.0-8.5 calcium, serum 9.4 mg/dL [facility] 8.7-10.2 carbon dioxide, venous blood 21 mmol/L [facility] 20-29 chloride, serum 101 mmol/L [facility] 96-106 potassium, serum 4.9 mmol/L [facility] 3.5-5.2 sodium, serum 139 mmol/L [facility] 169-275 4184/12/ 05 urea nitrogen/creatinine ratio, serum 21 [facility] 9-20 High eGFR if 79 mL/min/{1. 73_m2} [facility] >59 eGFR if not 68 mL/min/{1. 73_m2} [facility] >59 creatinine, serum 1.17 mg/dL [facility] 0.76-1.27 urea nitrogen, blood 24 mg/dL [facility] 6-24 blood glucose, random 134 mg/dL [facility] 65-99 High prothrombin time (patient) 10.5 s [facility] 9.1-12.0 international normalized ratio (INR) 1.0 [facility] 0.8-1.2 basophil count, absolute 0.1 x10E3/uL [facility] 0.0-0.2 Eosinophil Absolute Count 0.2 X10E3/UL [facility] 0.0-0.4 monocyte count, blood, automated 0.5 X10E3/UL [facility] 0.1-0.9 lymphocyte count, blood, automated 3.4 X10E3/UL [facility] 0.7-3.1 High Absolute Neutrophils 5.6 X10E3/UL [facility] 1.4-7.0 basophils as percent of blood leukocytes 1 % [facility] Not Estab. eosinophils as percent of blood leukocytes 2 % [facility] Not Estab. monocytes as percent of blood leukocytes 6 % [facility] Not Estab. lymphocytes as percent of blood leukocytes 34 % [facility] Not Estab. neutrophils as percent of blood leukocytes 57 % [facility] Not Estab. platelet count 232 X10E3/UL [facility] 516-685 6784/09/ 22 red blood cell distribution width 14.0 % [facility] 12.3-15.4 mean corpuscular hemoglobin concentration, RBC 35.1 G/DL [facility] 31.5-35.7 mean corpuscular hemoglobin, RBC 28.6 pg [facility] 26.6-33.0 mean corpuscular volume, RBC 82 fL [facility] 79-97 hematocrit, blood 41.9 % [facility] 37.5-51.0 hemoglobin, blood 14.7 g/dL [facility] 13.0-17.7 erythrocyte (RBC) count 5.14 X10E6/UL [facility] 4.14-5.80 leukocyte count, blood 9.8 X10E3/UL [facility] 3.4-10.8 B-type natriuretic peptide 3.9 pg/mL [facility] 0.0-100.0 free thyroxine index 1.3 [facility] 1.2-4.9 triiodothyronine resin uptake 22 % [facility] 24-39 Low thyroxine, serum, total 6.0 ug/dL [facility] 4.5-12.0 lipoprotein, beta, serum, point, quantitative, calculated See report mg/dL [facility] 0-99 very low density lipoproteins See report mg/dL [facility] 5-40 HDL cholesterol, serum 32 mg/dL [facility] >39 Low triglyceride, serum, random 663 mg/dL [facility] 0-149 Critical high cholesterol, serum 293 mg/dL [facility] 100-199 High alanine aminotransferase (SGPT), serum 20 1/L [facility] 0-44 aspartate aminotransferase (SGOT), serum 16 1/L [facility] 0-40 alkaline phosphatase, serum 62 1/L [facility] 39-117 bilirubin, serum, total 0.4 mg/dL [facility] 0.0-1.2 albumin/globulin ratio, serum 1.9 [facility] 1.2-2.2 globulin, serum 2.5 [facility] 1.5-4.5 albumin, serum 4.8 g/dL [facility] 3.5-5.5 protein, total, serum 7.3 g/dL [facility] 6.0-8.5 calcium, serum 9.6 mg/dL [facility] 8.7-10.2 carbon dioxide, venous blood 19 mmol/L [facility] 20-29 Low chloride, serum 96 mmol/L [facility] 96-106 potassium, serum 4.4 mmol/L [facility] 3.5-5.2 sodium, serum 135 mmol/L [facility] 141-377 8353/09/ 21 urea nitrogen/creatinine ratio, serum 25 [facility] 9-20 High eGFR if 70 mL/min/{1. 73_m2} [facility] >59 eGFR if not 61 mL/min/{1. 73_m2} [facility] >59 creatinine, serum 1.30 mg/dL [facility] 0.76-1.27 High urea nitrogen, blood 33 mg/dL [facility] 6-24 High blood glucose, random 321 mg/dL [facility] 65-99 High HISTORY OF MEDICATION USE Medication Status Instructions Dates Provider Indications Com [facility] [place]LOG MIX 70/30 FLEXPEN SUSPENSION PEN-INJECTOR active sliding scale Renita Echevarria ABILIFY 15 MG ORAL TABLET active take 1 tab daily Renita Echevarria SIMVASTATIN TABLET active take 1 tab daily Renita Echevarria TRAZODONE HCL 150 MG ORAL TABLET active take 1 tab at bedtime Renita Echevarria DEPAKOTE TABLET DELAYED RELEASE active TAke 1 tab daily Renita Echevarria SERTRALINE HCL 50 MG ORAL TABLET active take 1 tab daily Renita Echevarria FLOMAX 0.4 MG ORAL CAPSULE active take one daily Carol Mack PLAVIX 75 MG ORAL TABLET active Take one tablet daily Thelma Dill RN NITROSTAT 0.4 MG SUBLINGUAL TABLET SUBLINGUAL active One tab. under tongue as needed. May repeat twice in 10 minutes. Dolores Ling MD FISH OIL 500 MG ORAL CAPSULE active two tablets twice per day Dolores Ling MD ISOSORBIDE MONONITRATE ER 30 MG ORAL TABLET EXTENDED RELEASE 24 HOUR active one tab. daily Dolores Ling MD METOPROLOL TARTRATE 25 MG ORAL TABLET completed Take one tab twice daily - Yi Dunn HYDROCHLOROTHIAZIDE 25 MG ORAL TABLET completed ONE TAB DAILY - Ivania Figkerrie ZANTAC 150 MAXIMUM STRENGTH TABLET active take one daily as needed Yi Dunn SIMVASTATIN 40 MG ORAL TABLET active take one dialy Carol Mack NOVOLOG 100 UNIT/ML SUBCUTANEOUS SOLUTION completed sliding scale - Yi Dunn METFORMIN HCL 1000 MG ORAL TABLET active 1 tab twice daily Yi Dunn LISINOPRIL 20 MG ORAL TABLET active take one daily Carol Giron LEVOTHYROXINE SODIUM 25 MCG ORAL TABLET active 225 mcg daily Dolores Ling MD LEVEMIR FLEXTOUCH 100 UNIT/ML SUBCUTANEOUS SOLUTION PEN-INJECTOR active inject 70 units daily Carol Mack FLUOXETINE HCL 40 MG ORAL CAPSULE active take one daily Carol Mack FLUOXETINE HCL 20 MG ORAL CAPSULE active take one tablet daily Carol Mack FENOFIBRATE 160 MG ORAL TABLET active take one daily Carol Mack ASPIR-81 81 MG ORAL TABLET DELAYED RELEASE active take one daily Carol Mack SOCIAL HISTORY Date Observation Value Provider social history reviewed E&M revi ewed - no changes required Dolores Ling MD social history reviewed E&M revi ewed - no changes required Dolores Ling MD social history E&M S moking History: Fe herzog is a former smoker. Dolores Ling MD alcohol use no Carol Mack smoking, year quit 2009 Carol Mariluz s smoking history, tot al pack/day 2 Carol Mack cigarette use yes Carol Mack smoking status Former smoker Carol Mack social history E&M S moking History: Fe herzog is a former smoker. Dolores Ling MD social history reviewed E&M revi ewed - no changes required Dolores Ling MD alcohol use no Carol Mack smoking, year quit 2009 Carol Mariluz s smoking history, tot al pack/day 2 Carol Mack cigarette use yes Carol Mack smoking status Former smoker Carol Mack social history E&M S moking History: Fe herzog is a former smoker. Dolores Ling MD social history reviewed E&M revi ewed - no changes required Dolores Ling MD alcohol use no Yi Julian lucas smoking, year quit 2009 Yi Dunn smoking history, tot al pack/day 2 Yi Dunn cigarette use yes Yi tristan smoking status Former smoker Yi Rios social history E&M S moking History: Fe herzog is a former smoker. Dolores Ling MD social history reviewed E&M revi ewed - no changes required Dolores Ling MD alcohol use no Yi lucas smoking, year quit 2009 Yi Dunn smoking history, tot al pack/day 2 Yi Dunn cigarette use yes Yi tristan smoking status Former smoker Yi Rios number of grandchildren Dolores Ling MD social history reviewed E&M revi ewed - no changes required Dolores Ling MD social history E&M S moking History: Fe herzog is a former smoker. Dolores Ling MD alcohol use no Carol Mack smoking history, tot al pack/day 2 Carol Mack smoking, year quit 2009 Carol Mariluz s cigarette use yes Carol Mack smoking status Former smoker Carol Mack FUNCTIONAL STATUS Date Observation Value Provider HRA, CV Assess/Plan, Angina (inactive) Management Plan continue current therapy Dolores Ling MD HRA, CV Assess/Plan, Angina (inactive) Management Plan continue current therapy Dolores Ling MD HRA, CV Assess/Plan, Angina (inactive) Management Plan continue current therapy, schedule PCI Dolores Ling MD FAMILY HISTORY Family Member Condition Father Family History of Di abetes: Father Family History Coron jarad Heart Disease male < 55: INSURANCE PROVIDERS Payer name Policy type / Coverage type [place] [employer] party ID [facility] [id number] ADVANCE DIRECTIVES Name Date DISCUSSED - NO DECISION MADE TREATMENT PLAN Date Name Performer Cardiology follow up : U ncontrolled. Glucose was very elevated on labs. Needs to see endocrine. Already on Synthroid. Dr. Holbrook. Dolores Ling MD Cardiology follow up : H is updated medication list for this problem includes: Levothyroxine Sodium 25 Mcg Oral Tablet (Levothyroxine sodium) ..... 225 mcg daily Dolores Ling MD Cardiology follow up : H is updated medication list for this problem includes: Lisinopril 20 Mg Oral Tablet (Lisinopril) ..... Take one daily Aspir-81 81 Mg Oral Tablet Delayed Release (Aspirin) ..... Take one daily Dolores Ling MD Cardiology follow up :He has been seen for galbladder issues and apparently is pre cancerous. Needs to have surgery. At present, since he has completeed 9 months DAPT and asymptomatic, he can come off of ASA/ Plavix for 3-5 days prior to galbladder surgery and then resume when OK with surgeon. Upon review of invasive and noninvasive testing and recent exam the patient is an acceptable candidate for the planned surgical procedure recommend to maintain his blood pressure range of 110 to 140 mmHg and a heart rate of 60-80 B p.m.. It is okay to use IV beta blockers calcium channel blockers nitrates and afterload reducing agents to maintain the aforementioned hemodynamics parameters. Tele monitoring and EKG should be done if the patient has arrhythmia during procedure Dolores Ling MD Cardiology follow up : H x. CAD, CABG x 1, VALDEZ to LAD. He has stress, which was abnormal for interior ischemia. He has CAD inv. LCX and RCA. RCA is a very small vessel and is a CREW DISPATCHER with bridging collaterals. LCX has 50-60% stenosis beyond a tight LMT. Uncontrolled chol, elevated TSH need management. Will start him on Imdur 30, D/C Lopressor as he became profoundly bradycardic with it. Did not tolerate HCTZ due to elevated Cr. Dolores Ling MD Cardiology follow up : U ncontrolled. Glucose was very elevated on labs. Needs to see endocrine. Already on Synthroid. Dolores Ling MD Cardiology follow up : T SH has dropped substantially. Dolores Ling MD Cardiology follow up : H x. CAD, CABG x 1, VALDEZ to LAD. He has stress, which was abnormal for interior ischemia. He has CAD inv. LCX and RCA. RCA is a very small vessel and is a CREW DISPATCHER with bridging collaterals. LCX has 50-60% stenosis beyond a tight LMT. Uncontrolled chol, elevated TSH need management. Will start him on Imdur 30, D/C Lopressor as he became profoundly bradycardic with it. Did not tolerate HCTZ due to elevated Cr. Dolores Ling MD Cardiology follow up : B P monitor for home. H is updated medication list for this problem includes: Lisinopril 20 Mg Oral Tablet (Lisinopril) ..... Take one daily Aspir-81 81 Mg Oral Tablet Delayed Release (Aspirin) ..... Take one daily Dolores Ling MD Cardiology follow up :Will get 48 hr holter. H is updated medication list for this problem includes: Plavix 75 Mg Oral Tablet (Clopidogrel bisulfate) ..... Take one tablet daily Nitrostat 0.4 Mg Sublingual Tablet Sublingual (Nitroglycerin) ..... One tab. under tongue as needed. may repeat twice in 10 minutes. Isosorbide Mononitrate Er 30 Mg Oral Tablet Extended Release 24 Hour (Isosorbide mononitrate) ..... One tab. daily Lisinopril 20 Mg Oral Tablet (Lisinopril) ..... Take one daily Aspir-81 81 Mg Oral Tablet Delayed Release (Aspirin) ..... Take one daily Dolores Ling MD Cardiology follow up :The patient is using CPAP on a regular basis. The patient has been benefiting from therapy and should continue use. Dolores Ling MD Cardiology hospital follow up:Pe nding CPAP machine. Dolores Ling MD Cardiology hospital follow up:Will get a tele monitor and return back to work. It is quite feasible that he had an episode of a-fib. H is updated medication list for this problem includes: Plavix 75 Mg Oral Tablet (Clopidogrel bisulfate) ..... Take one tablet daily Nitrostat 0.4 Mg Sublingual Tablet Sublingual (Nitroglycerin) ..... One tab. under tongue as needed. may repeat twice in 10 minutes. Isosorbide Mononitrate Er 30 Mg Oral Tablet Extended Release 24 Hour (Isosorbide mononitrate) ..... One tab. daily Lisinopril 20 Mg Oral Tablet (Lisinopril) ..... Take one daily Aspir-81 81 Mg Oral Tablet Delayed Release (Aspirin) ..... Take one daily Dolores Ling MD Cardiology hospital follow up:PTCA stenting of left circumflex AV groove 90% to 95% lesion reduced to a 0% residual with implantation of a 3.5 mm x 28 mm synergy drug-eluting stent Dolores Ling MD Cardiology hospital follow up:BP monitor for home. H is updated medication list for this problem includes: Lisinopril 20 Mg Oral Tablet (Lisinopril) ..... Take one daily Aspir-81 81 Mg Oral Tablet Delayed Release (Aspirin) ..... Take one daily Dolores Ling MD Cardiology: O rders: 9 9215 HIGH Complex (CPT-99666) C oronary Stent - [facility] (CPT-36181) Dolores Ling MD Cardiology:Reviewed cath with him. Potentially stentable LCX. May need to do ostial L vein LMT or otherwise plan for 2 stents to the LCX. He is able to delay his gallbladder surgery for [address] Evans for that. Will schedule him for LHC and stent at [facility]. The risks and benefits of the procedure, including but not limited the risk of heart attack, , stroke, bleeding, kidney failure, and loss of limb as well as the alternative of continued medical therapy, stress testing or bypass surgery were discussed with the patient and any present family members and the patient wishes to proceed with cardiac cath and stenting. The patient and family had opportunity to discuss this with us. Written material including informed consent was given out. Dolores Ling MD Cardiology: H is updated medication list for this problem includes: Lisinopril 20 Mg Oral Tablet (Lisinopril) ..... Take one daily Aspir-81 81 Mg Oral Tablet Delayed Release (Aspirin) ..... Take one daily Dolores Ling MD Cardiology:Needs to still get hi s CPAP. Dolores Ling MD Cardiology:TSH has dropped subst antially. Dolores Ling MD Cardiology:Uncontrol led. Glucose was very elevated on labs. Needs to see endocrine. Already on Synthroid. Dolores Ling MD Cardiology: H x. CAD, CABG x 1, VALDEZ to LAD. He has stress, which was abnormal for interior ischemia. He has CAD inv. LCX and RCA. RCA is a very small vessel and is a CREW DISPATCHER with bridging collaterals. LCX has 50-60% stenosis beyond a tight LMT. Uncontrolled chol, elevated TSH need management. Will start him on Imdur 30, D/C Lopressor as he became profoundly bradycardic with it. Did not tolerate HCTZ due to elevated Cr. Dolores Ling MD Cardiology:Start fis h oil supplements, 2G per day. Currently on phenofibrate and Zocor. Pt. has been instructed not to consume any carbohydrates at all: no potatoes, bread, or pasta. Dolores Ling MD Cardiology New Patie nt:Will get home sleep study. O rders: S leep Study Home (CPT-90383) Tripp Rene Cardiology New Patie nt:Added HCTZ 25 mg once daily. BP today: 142/80 His updated medication list for this problem includes: Hydrochlorothiazide 25 Mg Oral Tablet (Hydrochlorothiazide) ..... One tab daily Lisinopril 20 Mg Oral Tablet (Lisinopril) ..... Take one daily Aspir-81 81 Mg Oral Tablet Delayed Release (Aspirin) ..... Take one daily Tripp Rene Cardiology New Patie nt:Hx. CAD, CABG x 1, VALDEZ to LAD. Check nuclear study for perfusion. O rders: C omplete Echo (CPT-31994) C arotid Duplex Bilateral (CPT-39058) S TR - Nuclear (CPT-36947) F VC - 51796 (92022) F RC - 34650 (86102) D LCO - 18893 (38669) Dolores Ling MD Cardiology New Patie nt:Check lipid profile or get results from PCP. H is updated medication list for this problem includes: Simvastatin 40 Mg Oral Tablet (Simvastatin) ..... Take one dialy Fenofibrate 160 Mg Oral Tablet (Fenofibrate) ..... Take one daily Dolores Ling MD Date Name Holter Monitor 24 Hr Mobile Cardiac Tele PROTHROMBIN TIME WIT H INR CBC (INCLUDES DIFF/P LT) BASIC METABOLIC PANE L W/EGFR Coronary Stent - CNE TSH, 3RD GENERATION HEMOGLOBIN A1c LIPID PANEL COMPREHENSIVE METABO LIC PANEL, W/EGFR TSH, 3RD GENERATION W/REFLEX TO FT4 LIPID PANEL HEMOGLOBIN A1c COMPREHENSIVE METABO LIC PANEL, W/EGFR PROTHROMBIN TIME WIT H INR CBC (INCLUDES DIFF/P LT) PROTHROMBIN TIME WIT H INR BASIC METABOLIC PANE L W/EGFR PROTHROMBIN TIME WIT H INR CBC (INCLUDES DIFF/P LT) B TYPE NATRIURETIC P EPTIDE (BNP) Sleep Study Home B TYPE NATRIURETIC P EPTIDE (BNP) THYROID PANEL WITH T SH, 3RD GENERATION COMPREHENSIVE METABO LIC PANEL, W/EGFR LIPID PANEL DLCO - 18804 FRC - 26345 FVC - 64342 STR - Nuclear Carotid Duplex Bilat eral Complete Echo HISTORY OF PROCEDURES Procedure Date Procedure Name Provider Procedure Notes S tatus EKG Dolores Ling MD compl eted Holter, 24 or 48 Dolores Ling MD completed EKG Dolores Ling MD compl eted Event Monitor Dolores Ling MD co mpleted EKG Dolores Ling MD compl eted EKG Dolores Ling MD compl eted EKG Dolores Ling MD compl eted ZIO Event Hookup Dolores Ling MD completed Cardiolite, 2 units Dolores Ling MD completed SPECT Images Dustin Townsend MD complet ed Stress EKG Lan William MD complete d FVC / MVV with bronchodilator - 06163 Dolores Ling MD completed BLOOD COUNT HEMOGLOBIN Dolores Ling MD completed FRC - 68872 Dolores Ling MD comp leted SpO2 w/o 6min walk/titration Dolores Ling MD completed DLCO - 76306 Dolores Ling MD com pleted EKG Dolores Ling MD compl eted
--- OUTSIDE RECORDS SUMMARY | 2024-03-24 03:34 | XMS_ITS | Patient Health Record ---
Author Organization [facility] [employer] [facility] Address [address] [place] [address] Care Team Providers Care Minister Assistant Name Role Phone Calderon Keen MD Primary Care Provider UnavailBhavya Arias Unavailable [phone] Bekah Hurtado Unavailable [phone] Migration, Provider Unavailable Unavailable Delfino Zhang Unavailable [phone] Allergies No Known Allergies Reason For Referral No Information Medications Medication SIG (Take, Route, Frequency, Duration) Notes Start Date End Date Status Insulin Lispro (1 Unit Dial) 100 UNIT/ML Subcutaneous 15 UNITS AC 06/21/2023 Active DULoxetine HCl 30 MG 1 capsule Orally Once a day for 30 days Active metFORMIN HCl 1000 MG 1 tablet with a meal Oral twice a day 06/21/2023 Active Rexulti 1 MG 1 tablet Oral Once a day for 30 days Active Tamsulosin HCl 0.4 MG Oral 06/21/2023 Active Rosuvastatin Calcium 40 MG Oral 06/21/2023 Active Mounjaro 10 MG/0.5ML as directed Subcutaneous 10 units Active Omeprazole 40 MG 1 capsule 30 minutes before morning meal Orally Once a day *Pick strength-form from [employer] for eRX* 06/21/2023 Active DULoxetine HCl 60 MG 1 cap Orally Once a day for 30 days Active Levothyroxine Sodium 200 MCG Oral in addition to 25 MCG 06/21/2023 Active Gabapentin 800 MG 1 tablet Orally three times a day Active Torsemide 20 MG as directed Oral 06/21/2023 Active ULTRA-FINE SHORT PEN NEEDLE 31 gauge x 5/16 MISCELLANEOUS *Reorder from [employer] for eRx and Interaction Alerts* 06/21/2023 Active Levemir FlexPen 100 unit/mL (3 mL) 32 SUBCUTANEOUS bid 06/21/2023 Active FLUoxetine HCl 40 MG 1 capsule Oral Once a day for 30 days Active Levothyroxine Sodium 25 MCG Oral in addition to 200 mcg 06/21/2023 Active Nitroglycerin 0.4 MG Sublingual 06/21/2023 Active Austedo 9 MG 1 tablet with food Orally Twice a day for 30 days Active Metoprolol Succinate ER 25 MG 0.5 tablets Oral Once a day 06/21/2023 Active Losartan Potassium 25 MG 1 tablet Orally Once a day 06/21/2023 Active Primidone 250 MG Oral 06/21/2023 Ac tive traZODone HCl 50 MG 1 tablet at bedtime Oral at bedtime for 30 days Active Immunizations Vaccine Route Administration Date Status Comme nts Tdap Unknown 10/19/2017 Administered Social History Tobacco Use: Social History Observation Description Date Details (start date - stop date) Former Smoker NA - NA Sex Assigned At : Social History Observation Description Sex Assigned At Male Tobacco Control (Standard) Question Answer Notes Tobacco use: Former smoker How long has it been since you last smoked? Grea ter than 10 years Additional Findings: Tobacco non-user Current no nsmoker Problems Problem Type SNOMED Code ICD Code Onset Dates Problem Status W/U Status Risk Notes Problem 42813376 Major depressive disorder, recurrent severe without psychotic features (F33.2) 3 Active confirmed Problem 80647086 Generalized anxiety disorder (F41.1) 4 Active confirmed Problem Posttraumatic stress disorder (16224230) Post-traumatic stress disorder, chronic (F43.12) 4 Active confirmed Problem Primary insomnia (4965539) Primary insomnia (F51.01) 4 Active confirmed Problem 311347285 On manager intermediate drug therapy (Z79.899) Active confirmed Problem 60392415 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) Active confirmed Vital Signs Heart Rate 79 /min 01/24/2024 Respiratory Rate 17 /min 12/24/2023 Height-cm 177.80 cm 01/24/2024 Blood pressure diastolic 83 mm Hg 01/24/2024 Weight-kg 106.14 kg 01/24/2024 Height 70.00 in 01/24/2024 Blood pressure systolic 147 mm Hg 01/24/2024 Weight 234.0 lbs 01/24/2024 BMI 33.57 kg/m2 01/24/2024 Encounters Encounter Location Date Provider Diagnosis [facility] [address] [facility] [address] [address] 06/21/2023 Bhavya Lopez Generalized anxiety disorder F41.1 ; Major depressive disorder, recurrent, mild F33.0 ; Intermittent explosive disorder F63.81 ; Post-traumatic stress disorder, chronic F43.12 and Primary insomnia F51.01 [facility] [address] [address] 10/01/2023 Bhavya Lopez [facility] [address] [address] 10/13/2023 Bekah Bryant Major depressive disorder, recurrent severe without psychotic features F33.2 ; Generalized anxiety disorder F41.1 and Chronic post-traumatic stress disorder F43.12 [facility] [address] [address] 10/22/2023 Bhavya Lopez Generalized anxiety disorder F41.1 ; Major depressive disorder, recurrent severe without psychotic features F33.2 ; Primary insomnia F51.01 ; Intermittent explosive disorder F63.81 ; Post-traumatic stress disorder, chronic F43.12 ; On m[facility] drug therapy Z79.899 and 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 [facility] [address] [address] 10/29/2023 Bekah Bryant Major depressive disorder, recurrent severe without psychotic features F33.2 ; Generalized anxiety disorder F41.1 and Post-traumatic stress disorder, chronic F43.12 [facility] [place] [address] [address] 11/10/2023 Delfino Clubb 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 ; Major depressive disorder, recurrent severe without psychotic features F33.2 ; Generalized anxiety disorder F41.1 ; Post-traumatic stress disorder, chronic F43.12 and Primary insomnia F51.01 [facility] [address] [address] 12/03/2023 Bhavya Lopez 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 ; Major depressive disorder, recurrent severe without psychotic features F33.2 ; Generalized anxiety disorder F41.1 ; Post-traumatic stress disorder, chronic F43.12 and Primary insomnia F51.01 [facility] [address] [place] [address] 12/15/2023 Bekah Bryant Major depressive disorder, recurrent severe without psychotic features F33.2 ; Generalized anxiety disorder F41.1 and Post-traumatic stress disorder, chronic F43.12 [facility] [address] [place] [address] 12/24/2023 Bhavya Thery 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 ; Major depressive disorder, recurrent severe without psychotic features F33.2 ; Generalized anxiety disorder F41.1 ; Post-traumatic stress disorder, chronic F43.12 and Primary insomnia F51.01 [facility] [address] [place] [address] 01/24/2024 Bhavya Thery 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 ; Major depressive disorder, recurrent severe without psychotic features F33.2 ; Generalized anxiety disorder F41.1 ; Post-traumatic stress disorder, chronic F43.12 and Primary insomnia F51.01 [facility] [address] [place] [address] 02/02/2024 Bekah Bryant Major depressive disorder, recurrent severe without psychotic features F33.2 ; Generalized anxiety disorder F41.1 and Post-traumatic stress disorder, chronic F43.12 [facility] [address] [place] [address] 02/17/2024 Bekah Bryant Major depressive disorder, recurrent severe without psychotic features F33.2 ; Generalized anxiety disorder F41.1 and Post-traumatic stress disorder, chronic F43.12 [facility] [address] [place] [address] 06/14/2023 Provider Migration [facility], [facility] [address] [place] [address] 06/21/2023 Provider [facility], [facility] [address] [place] [address] 07/02/2023 Provider Migration [facility], [facility] [address] [place] [address] 07/05/2023 Provider Migration [facility] [address] [facility] [address] [place] [address] 07/17/2023 Provider Migration [facility] [address] [address] 07/18/2023 Provider [facility] [address] [address] 11/15/2023 Bhavya Thery Major depressive disorder, recurrent severe without psychotic features F33.2 [facility] [address] [address] 11/15/2023 Bhavya Thery 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 [facility] [address] [address] 11/17/2023 Bhavya Thery [facility] [address] [address] 12/01/2023 Bhavya Thery Major depressive disorder, recurrent severe without psychotic features F33.2 [facility] [address] [address] 12/28/2023 Bhavya Thery [facility] [address] [address] 12/28/2023 Bhavya Thery 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 Provider can order medication once approval received. 11/15/2023 Medication-ind uced movement disorder (ICD-10 - G25.70) Electronic Prior Authorization was requested for Austedo 6 MG Tablet. Provider can order medication once approval received. Insurance requested Austedo BID dosing Austedo 6 mg BID sent to [place] d/c Austedo XR 12 MG DOSE 12/01/2023 Major depressive disorder, recurrent severe without psychotic features (ICD-10 - F33.2) 12/28/2023 Medication-ind uced movement disorder (ICD-10 - G25.70) Electronic Prior Authorization was requested for Austedo XR 18 MG Tablet Extended Release 24 Hour. Provider can order medication once approval received. 02/08/2024 On manager intermediate drug therapy (ICD-10 - Z79.899) Electronic Prior Authorization was requested for Austedo 6 MG Tablet. Provider can order medication once approval received. 02/17/2024 Major depressive disorder, recurrent severe without psychotic features (ICD-10 - F33.2) 11/10/2023 Medication-ind uced movement disorder (ICD-10 - G25.70) 1. Tardive dyskinesia - Continue Austedo for tardive dyskinesia management - Decrease Austedo to 6 mg and reassess in one week - Patient to follow up in one week. - He reports some improvement with Austedo, but feels he may have reached tolerance 2. Side effects of Austedo and duloxetine - Monitor for significant sleepiness, clumsiness, and dizziness - Educate patient on the possibility of side effects subsiding as the body adjusts to the medication - Reassess side effects in one week - He reports sleepiness, clumsiness, and dizziness as main side effects 3. Dehydration - Encourage patient to increase fluid intake until urine is clear - Monitor for improvement in dizziness and sweating - He reports dark urine and increased sweating - patient notably sweaty during assessment. 4. Blood pressure management - He to monitor blood pressure at home or at a local pharmacy - Address dizziness with position changes and potential dehydration - Consider purchasing a home blood pressure monitor 5. Blood sugar management - Continue current diabetes medications (Levemir, Lispro, and metformin) - He to monitor blood sugar levels twice daily - He reports blood sugar levels running between 160-180 6. 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 Laboratory tests - He to complete blood work within the week, including white blood cell count - Review results at the next appointment 8. Follow-up appointments - Schedule a follow-up appointment with HIMANSHU Zhang in one week - Keep the scheduled appointment with Bhavya Santana 9. Medication management - Continue current medications as prescribed, including Lyrica, Mounjaro, levothyroxine, metoprolol, primidone, temozolomide, rosuvastatin, omeprazole, losartan potassium, tamsulosin, fluoxetine, Rexulti, trazodone, and duloxetine - Reassess medication regimen during follow-up appointments - He reports taking Lyrica in the morning and afternoon instead of before bedtime 12/24/2023 Medication-ind uced movement disorder (ICD-10 - G25.70) 1.Depresson Rexulti 1 mg daily 2. Anxiety Prozac 40 mg Cymbalta 90 mg daily in am 3. Insomnia Trazodone 50 mg 4.Tardive dyskinesia - Increase Austedo XR 18 MG daily in am for tardive dyskinesia management- [facility] - He reports increase oral movements on Austedo, AIMS= 8 12/24/23 . Side effects of Austedo and duloxetine - Patient reported not having s/e of sleepiness, clumsiness, and dizziness - Educate patient on the possibility of side effects subsiding as the body adjusts to the medication Laboratory tests scheduled - will have labs done . Follow-up appointments - scheduled 3-4 weeks . Medication management educated on rx, benefits, side effects andrisk - Reassess medication regimen during follow-up appointments http_s://www.nam i.org/About-Ment al-Illness/Menta z-Vaszij-Ylcmttm ons http_s://[employer]ce [employer]/robinson héctor/the-cogniti pr-hophgdiv-ds-d epression#treatm ents http__s://www.ni mh.nih.gov/healt h/topics/mental- health-medicatio ns http__s://www.na mi.org/About-Men juliann-Illness/Miesha tments/Mental-He alth-Medications educated on all medications, benefits, side effects and risk, and educated on depression, anxiety, and ADHD, mood d/o and educated on compliance of medications, metabolic and movement d/o education appointment is, continue therapy discussion with patient about course of treatment and patient instructions. education on serotonin syndrome SSRI/SNRI side effects discussed including but not limited to, gastric upset, nausea, vomiting, diarrhea and/or constipation, weight changes, sexual side effects including loss of libido, increased suicidal thoughts/behavio rs in children and young adults, and serotonin syndrome. Second generation antipsychotics (SGAs) have metabolic syndrome issues with weight gain, increase in prolactin, increased waist circumference, increased lipids, and increased glucose. Thus routine monitoring of weight, metabolic labs, etc. is indicated. A general rank ordering of antipsychotics that have the greatest to the least risk of metabolic effects is olanzapine, quetiapine, risperidone, ziprasidone, and aripiprazole. However, weight gain can occur with all of these drugs and considerable variability exists among patients receiving the same drug regarding the risk of metabolic effects. Anti-psychotic agents not only increase the risk of metabolic disorder, they also increase the risk of CVA, akathisia, and movement disorders including EPS or tardive dyskinesia (more common with first generation antipsychotics) and more. Medication Management and Follow-Up - Plan: - Schedule follow-up appointments every 1-3 months to monitor the patient's response to the medication regimen. - Reinforce the importance of avoiding recreational drug use due to potential neurotoxicity and interactions with prescribed medications.. - 01/24/2024 Medication-ind uced movement disorder (ICD-10 - G25.70) Learning About Movement Disorders From Antipsychotic Medicines material was published 1.Depresson Rexulti 1 mg daily 2. Anxiety Prozac 40 mg Cymbalta 90 mg daily in am 3. Insomnia Trazodone 50 mg 4.Tardive dyskinesia - Austedo XR 18 MG PA denied Austedo 9 mg twice daily for tardive dyskinesia management- [facility] - He reports increase oral movements on Austedo, AIMS= 8 12/24/23 . Side effects of Austedo and duloxetine - Patient reported not having s/e of sleepiness, clumsiness, and dizziness - Educate patient on the possibility of side effects subsiding as the body adjusts to the medication Laboratory tests scheduled - will have labs done today . Follow-up appointments -refer to therapy . Medication management educated on rx, benefits, side effects andrisk - Reassess medication regimen during follow-up appointments http_s://www.nam i.org/About-Ment al-Illness/Menta b-Svhtoj-Nnakivy ons http_s://psychce ntral.com/robinson anaya/the-cogniti gl-kyjqmjfj-om-d epression#paloma ents http__s://www.ni .nih.gov/healt h/topics/mental- health-medicatio ns http__s://www.na mi.org/About-Men juliann-Illness/Miesha tments/Mental-He alth-Medications educated on all medications, benefits, side effects and risk, and educated on depression, anxiety, and ADHD, mood d/o and educated on compliance of medications, metabolic and movement d/o education appointment is, continue therapy discussion with patient about course of treatment and patient instructions. education on serotonin syndrome SSRI/SNRI side effects discussed including but not limited to, gastric upset, nausea, vomiting, diarrhea and/or constipation, weight changes, sexual side effects including loss of libido, increased suicidal thoughts/behavio rs in children and young adults, and serotonin syndrome. Second generation antipsychotics (SGAs) have metabolic syndrome issues with weight gain, increase in prolactin, increased waist circumference, increased lipids, and increased glucose. Thus routine monitoring of weight, metabolic labs, etc. is indicated. A general rank ordering of antipsychotics that have the greatest to the least risk of metabolic effects is olanzapine, quetiapine, risperidone, ziprasidone, and aripiprazole. However, weight gain can occur with all of these drugs and considerable variability exists among patients receiving the same drug regarding the risk of metabolic effects. Anti-psychotic agents not only increase the risk of metabolic disorder, they also increase the risk of CVA, akathisia, and movement disorders including EPS or tardive dyskinesia (more common with first generation antipsychotics) and more. Medication Management and Follow-Up - Plan: - Schedule follow-up appointments every 1-3 months to monitor the patient's response to the medication regimen. - Reinforce the importance of avoiding recreational drug use due to potential neurotoxicity and interactions with prescribed medications.. - 02/02/2024 Major depressive disorder, recurrent severe without psychotic features (ICD-10 - F33.2) 02/02/2024 Generalized anxiety disorder (ICD-10 - F41.1) 12/03/2023 Medication-ind uced movement disorder (ICD-10 - G25.70) 1. Tardive dyskinesia - Continue Austedo XR 12 MG daily in am for tardive dyskinesia management- no refill needed today - He reports some improvement with Austedo, will monitor 2. Side effects of Austedo and duloxetine - Monitor for significant sleepiness, clumsiness, and dizziness - Educate patient on the possibility of side effects subsiding as the body adjusts to the medication 3. Dehydration- educated to increase water intake and limit coffee and tea - Encourage patient to increase fluid intake until urine is clear - Monitor for improvement in dizziness and sweating - He reports dark urine 4. Blood pressure management - He to monitor blood pressure at home or at a local pharmacy labs scheduled 12/03/23 PCP ordered - Consider purchasing a home blood pressure monitor 5. Blood sugar management - Continue current diabetes medications (Levemir, Lispro, and metformin) - He to monitor blood sugar levels twice daily - He reports blood sugar levels running under 200 6. 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 Laboratory tests scheduled 12/03 23 8. Follow-up appointments - scheduled 3-4 weeks 9. Medication management educated on rx, benefits, side effects andrisk - Reassess medication regimen during follow-up appointments http_s://www.nam i.org/About-Ment al-Illness/Menta u-Xabgpt-Qgvscsc ons http_s://[employer]/robinson anaya/the-cogniti ra-mbswzmrw-bu-d epression#treatm ents http__s://www.ni mh.nih.gov/healt h/topics/mental- health-medicatio ns http__s://www.na mi.org/About-Men juliann-Illness/Miesha tments/Mental-He alth-Medications educated on all medications, benefits, side effects and risk, and educated on depression, anxiety, and ADHD, mood d/o and educated on compliance of medications, metabolic and movement d/o education appointment's, continue therapy discussion with patient about course of treatment and patient instructions. education on serotonin syndrome educated on all medications, benefits, side effects and risk, and educated on depression, anxiety, and ADHD, mood d/o and educated on compliance of medications, metabolic and movement d/o education appointment is, continue therapy discussion with patient about course of treatment and patient instructions. education on serotonin syndrome SSRI/SNRI side effects discussed including but not limited to, gastric upset, nausea, vomiting, diarrhea and/or constipation, weight changes, sexual side effects including loss of libido, increased suicidal thoughts/behavio rs in children and young adults, and serotonin syndrome. Second generation antipsychotics (SGAs) have metabolic syndrome issues with weight gain, increase in prolactin, increased waist circumference, increased lipids, and increased glucose. Thus routine monitoring of weight, metabolic labs, etc. is indicated. A general rank ordering of antipsychotics that have the greatest to the least risk of metabolic effects is olanzapine, quetiapine, risperidone, ziprasidone, and aripiprazole. However, weight gain can occur with all of these drugs and considerable variability exists among patients receiving the same drug regarding the risk of metabolic effects. Anti-psychotic agents not only increase the risk of metabolic disorder, they also increase the risk of CVA, akathisia, and movement disorders including EPS or tardive dyskinesia (more common with first generation antipsychotics) and more. Medication Management and Follow-Up - Plan: - Schedule follow-up appointments every 1-3 months to monitor the patient's response to the medication regimen. - Reinforce the importance of avoiding recreational drug use due to potential neurotoxicity and interactions with prescribed medications. 12/15/2023 Major depressive disorder, recurrent severe without psychotic features (ICD-10 - F33.2) 10/22/2023 Major depressive disorder, recurrent severe without psychotic features (ICD-10 - F33.2) Preventing Depression From Coming Back: Care Instructions material was published, Learning About Depression material was published, Learning About Depression Screening material was published, Learning About How to Get Help During a Mental Health Crisis material was published, Depression Treatment: Care Instructions material was published 1. 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 Rexulti 1 mg daily discuss and education Cymbalta and/or Wellbutrin for severe depression educated on both rx will add Cymbalta 30 mg daily in am for 2 weeks then increase to Cymbalta 60 mg daily in am refer to Melba and PTSD and group monitor for TD- AIMS= 1 06/21/23 minimal quiver bottom lip noted - Reported increase mouth tremors, lips, tongue and left hand tremors 10/22/23 Discuss VMAT II inhibitors- Austedo XR and Ingrezza will add Austedo XR 6 mg daily x 1 week, then 12 mg daily several teeth poor condition Prozac 40 mg daily educated on all medications, benefits, side effects and risk, and educated on depression, anxiety, and mood d/o and educated on compliance of medications, metabolic and movement d/o education appointment's, continue therapy discussion with patient about course of treatmentand patient instructions. education on serotonin syndrome SSRI/SNRI side effects discussed including but not limited to, gastric upset, nausea, vomiting, diarrhea and/or constipation, weight changes, sexual side effects including loss of libido, increased suicidal thoughts/behavio rs in children and young adults, and serotonin syndrome. Second generation antipsychotics (SGAs) have metabolic syndrome issues with weight gain, increase in prolactin, increased waist circumference, increased lipids, and increased glucose. Thus routine monitoring of weight, metabolic labs, etc. is indicated. A general rank ordering of antipsychotics that have the greatest to the least risk of metabolic effects is olanzapine, quetiapine, risperidone, ziprasidone, and aripiprazole. However, weight gain can occur with all of these drugs and considerable variability exists among patients receiving the same drug regarding the risk of metabolic effects. Anti-psychotic agents not only increase the risk of metabolic disorder, they also increase the risk of CVA, akathisia, and movement disorders including EPS or tardive dyskinesia (more common with first generation antipsychotics) and more. 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 Generalized anxiety disorder -Prozac 40 mg daily Medication Management and Follow-Up- Plan:- Schedule follow-up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 disorder (ICD-10 - F41.1) 12/24/2023 Major depressive disorder, recurrent severe without psychotic features (ICD-10 - F33.2) 1.Depresson Rexulti 1 mg daily 2. Anxiety Prozac 40 mg Cymbalta 90 mg daily in am 3. Insomnia Trazodone 50 mg 4.Tardive dyskinesia - Increase Austedo XR 18 MG daily in am for tardive dyskinesia management- [facility] - He reports increase oral movements on Austedo, AIMS= 8 12/24/23 . Side effects of Austedo and duloxetine - Patient reported not having s/e of sleepiness, clumsiness, and dizziness - Educate patient on the possibility of side effects subsiding as the body adjusts to the medication Laboratory tests scheduled - will have labs done . Follow-up appointments - scheduled 3-4 weeks . Medication management educated on rx, benefits, side effects andrisk - Reassess medication regimen during follow-up appointments http_s://www.nam i.org/About-Ment al-Illness/Menta w-Rpifyt-Ndtifrx ons http_s://psychce ntral.com/depramber héctor/the-cogniti up-hxjomokd-dd-d epression#treatm ents http__s://www.ni mh.nih.gov/healt h/topics/mental- health-medicatio ns http__s://www.na mi.org/About-Men juliann-Illness/Miesha tments/Mental-He alth-Medications educated on all medications, benefits, side effects and risk, and educated on depression, anxiety, and ADHD, mood d/o and educated on compliance of medications, metabolic and movement d/o education appointment is, continue therapy discussion with patient about course of treatment and patient instructions. education on serotonin syndrome SSRI/SNRI side effects discussed including but not limited to, gastric upset, nausea, vomiting, diarrhea and/or constipation, weight changes, sexual side effects including loss of libido, increased suicidal thoughts/behavio rs in children and young adults, and serotonin syndrome. Second generation antipsychotics (SGAs) have metabolic syndrome issues with weight gain, increase in prolactin, increased waist circumference, increased lipids, and increased glucose. Thus routine monitoring of weight, metabolic labs, etc. is indicated. A general rank ordering of antipsychotics that have the greatest to the least risk of metabolic effects is olanzapine, quetiapine, risperidone, ziprasidone, and aripiprazole. However, weight gain can occur with all of these drugs and considerable variability exists among patients receiving the same drug regarding the risk of metabolic effects. Anti-psychotic agents not only increase the risk of metabolic disorder, they also increase the risk of CVA, akathisia, and movement disorders including EPS or tardive dyskinesia (more common with first generation antipsychotics) and more. Medication Management and Follow-Up - Plan: - Schedule follow-up appointments every 1-3 months to monitor the patient's response to the medication regimen. - Reinforce the importance of avoiding recreational drug use due to potential neurotoxicity and interactions with prescribed medications.. - 02/02/2024 Post-traumatic stress disorder, chronic (ICD-10 - F43.12) 01/24/2024 Major depressive disorder, recurrent severe without psychotic features (ICD-10 - F33.2) Learning About Depression material was published, Learning About Depression Screening material was published, Learning About How to Get Help During a Mental Health Crisis material was published, Depression Treatment: Care Instructions material was published, Preventing Depression From Coming Back: Care Instructions material was published 1.Depresson Rexulti 1 mg daily 2. Anxiety Prozac 40 mg Cymbalta 90 mg daily in am 3. Insomnia Trazodone 50 mg 4.Tardive dyskinesia - Austedo XR 18 MG PA denied Austedo 9 mg twice daily for tardive dyskinesia management- [facility] - He reports increase oral movements on Austedo, AIMS= 8 12/24/23 . Side effects of Austedo and duloxetine - Patient reported not having s/e of sleepiness, clumsiness, and dizziness - Educate patient on the possibility of side effects subsiding as the body adjusts to the medication Laboratory tests scheduled - will have labs done today . Follow-up appointments -refer to therapy . Medication management educated on rx, benefits, side effects andrisk - Reassess medication regimen during follow-up appointments http_s://www.nam i.org/About-Ment al-Illness/Menta f-Yfzkso-Acelcnl ons http_s://[facility]/depramber héctor/the-cogniti vv-cqiueofr-ft-d epression#treatm ents http__s://www.ni .nih.gov/healt h/topics/mental- health-medicatio ns http__s://www.na mi.org/About-Men juliann-Illness/Miesha tments/Mental-He alth-Medications educated on all medications, benefits, side effects and risk, and educated on depression, anxiety, and ADHD, mood d/o and educated on compliance of medications, metabolic and movement d/o education appointment is, continue therapy discussion with patient about course of treatment and patient instructions. education on serotonin syndrome SSRI/SNRI side effects discussed including but not limited to, gastric upset, nausea, vomiting, diarrhea and/or constipation, weight changes, sexual side effects including loss of libido, increased suicidal thoughts/behavio rs in children and young adults, and serotonin syndrome. Second generation antipsychotics (SGAs) have metabolic syndrome issues with weight gain, increase in prolactin, increased waist circumference, increased lipids, and increased glucose. Thus routine monitoring of weight, metabolic labs, etc. is indicated. A general rank ordering of antipsychotics that have the greatest to the least risk of metabolic effects is olanzapine, quetiapine, risperidone, ziprasidone, and aripiprazole. However, weight gain can occur with all of these drugs and considerable variability exists among patients receiving the same drug regarding the risk of metabolic effects. Anti-psychotic agents not only increase the risk of metabolic disorder, they also increase the risk of CVA, akathisia, and movement disorders including EPS or tardive dyskinesia (more common with first generation antipsychotics) and more. Medication Management and Follow-Up - Plan: - Schedule follow-up appointments every 1-3 months to monitor the patient's response to the medication regimen. - Reinforce the importance of avoiding recreational drug use due to potential neurotoxicity and interactions with prescribed medications.. - 02/17/2024 Generalized anxiety disorder (ICD-10 - F41.1) 02/17/2024 Post-traumatic stress disorder, chronic (ICD-10 - F43.12) 01/24/2024 Generalized anxiety disorder (ICD-10 - F41.1) Generalized Anxiety Disorder: Care Instructions material was published, Learning About Generalized Anxiety Disorder material was published, Learning About Anxiety Disorders material was published 1.Depresson Rexulti 1 mg daily 2. Anxiety Prozac 40 mg Cymbalta 90 mg daily in am 3. Insomnia Trazodone 50 mg 4.Tardive dyskinesia - Austedo XR 18 MG PA denied Austedo 9 mg twice daily for tardive dyskinesia management- [facility] - He reports increase oral movements on Austedo, AIMS= 8 12/24/23 . Side effects of Austedo and duloxetine - Patient reported not having s/e of sleepiness, clumsiness, and dizziness - Educate patient on the possibility of side effects subsiding as the body adjusts to the medication Laboratory tests scheduled - will have labs done today . Follow-up appointments -refer to therapy . Medication management educated on rx, benefits, side effects andrisk - Reassess medication regimen during follow-up appointments http_s://www.nam i.org/About-Ment al-Illness/Menta f-Ebjqsx-Junqvks ons http_s://psychce 99dresses/robinson héctor/the-cogniti gt-qlfhuwdk-aa-d epression#treatm ents http__s://www.ni .nih.gov/healt h/topics/mental- health-medicatio ns http__s://www.na mi.org/About-Men juliann-Illness/Miesha tments/Mental-He alth-Medications educated on all medications, benefits, side effects and risk, and educated on depression, anxiety, and ADHD, mood d/o and educated on compliance of medications, metabolic and movement d/o education appointment is, continue therapy discussion with patient about course of treatment and patient instructions. education on serotonin syndrome SSRI/SNRI side effects discussed including but not limited to, gastric upset, nausea, vomiting, diarrhea and/or constipation, weight changes, sexual side effects including loss of libido, increased suicidal thoughts/behavio rs in children and young adults, and serotonin syndrome. Second generation antipsychotics (SGAs) have metabolic syndrome issues with weight gain, increase in prolactin, increased waist circumference, increased lipids, and increased glucose. Thus routine monitoring of weight, metabolic labs, etc. is indicated. A general rank ordering of antipsychotics that have the greatest to the least risk of metabolic effects is olanzapine, quetiapine, risperidone, ziprasidone, and aripiprazole. However, weight gain can occur with all of these drugs and considerable variability exists among patients receiving the same drug regarding the risk of metabolic effects. Anti-psychotic agents not only increase the risk of metabolic disorder, they also increase the risk of CVA, akathisia, and movement disorders including EPS or tardive dyskinesia (more common with first generation antipsychotics) and more. Medication Management and Follow-Up - Plan: - Schedule follow-up appointments every 1-3 months to monitor the patient's response to the medication regimen. - Reinforce the importance of avoiding recreational drug use due to potential neurotoxicity and interactions with prescribed medications.. - 12/24/2023 Generalized anxiety disorder (ICD-10 - F41.1) 1.Depresson Rexulti 1 mg daily 2. Anxiety Prozac 40 mg Cymbalta 90 mg daily in am 3. Insomnia Trazodone 50 mg 4.Tardive dyskinesia - Increase Austedo XR 18 MG daily in am for tardive dyskinesia management- [facility] - He reports increase oral movements on Austedo, AIMS= 8 12/24/23 . Side effects of Austedo and duloxetine - Patient reported not having s/e of sleepiness, clumsiness, and dizziness - Educate patient on the possibility of side effects subsiding as the body adjusts to the medication Laboratory tests scheduled - will have labs done . Follow-up appointments - scheduled 3-4 weeks . Medication management educated on rx, benefits, side effects andrisk - Reassess medication regimen during follow-up appointments http_s://www.nam i.org/About-Ment al-Illness/Menta t-Mkhqho-Tadgdvv ons http_s://psychce [employer].com/robinson anaya/the-cogniti cw-hydnfhrm-xp-d epression#treatm ents http__s://www.ni .nih.gov/healt h/topics/mental- health-medicatio ns http__s://www.na mi.org/About-Men juliann-Illness/Miesha elizabethnts/Mental-He alth-Medications educated on all medications, benefits, side effects and risk, and educated on depression, anxiety, and ADHD, mood d/o and educated on compliance of medications, metabolic and movement d/o education appointment is, continue therapy discussion with patient about course of treatment and patient instructions. education on serotonin syndrome SSRI/SNRI side effects discussed including but not limited to, gastric upset, nausea, vomiting, diarrhea and/or constipation, weight changes, sexual side effects including loss of libido, increased suicidal thoughts/behavio rs in children and young adults, and serotonin syndrome. Second generation antipsychotics (SGAs) have metabolic syndrome issues with weight gain, increase in prolactin, increased waist circumference, increased lipids, and increased glucose. Thus routine monitoring of weight, metabolic labs, etc. is indicated. A general rank ordering of antipsychotics that have the greatest to the least risk of metabolic effects is olanzapine, quetiapine, risperidone, ziprasidone, and aripiprazole. However, weight gain can occur with all of these drugs and considerable variability exists among patients receiving the same drug regarding the risk of metabolic effects. Anti-psychotic agents not only increase the risk of metabolic disorder, they also increase the risk of CVA, akathisia, and movement disorders including EPS or tardive dyskinesia (more common with first generation antipsychotics) and more. Medication Management and Follow-Up - Plan: - Schedule follow-up appointments every 1-3 months to monitor the patient's response to the medication regimen. - Reinforce the importance of avoiding recreational drug use due to potential neurotoxicity and interactions with prescribed medications.. - 12/15/2023 Post-traumatic stress disorder, chronic (ICD-10 - F43.12) 11/10/2023 Generalized anxiety disorder (ICD-10 - F41.1) 1. Tardive dyskinesia - Continue Austedo for tardive dyskinesia management - Decrease Austedo to 6 mg and reassess in one week - Patient to follow up in one week. - He reports some improvement with Austedo, but feels he may have reached tolerance 2. Side effects of Austedo and duloxetine - Monitor for significant sleepiness, clumsiness, and dizziness - Educate patient on the possibility of side effects subsiding as the body adjusts to the medication - Reassess side effects in one week - He reports sleepiness, clumsiness, and dizziness as main side effects 3. Dehydration - Encourage patient to increase fluid intake until urine is clear - Monitor for improvement in dizziness and sweating - He reports dark urine and increased sweating - patient notably sweaty during assessment. 4. Blood pressure management - He to monitor blood pressure at home or at a local pharmacy - Address dizziness with position changes and potential dehydration - Consider purchasing a home blood pressure monitor 5. Blood sugar management - Continue current diabetes medications (Levemir, Lispro, and metformin) - He to monitor blood sugar levels twice daily - He reports blood sugar levels running between 160-180 6. 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 Laboratory tests - He to complete blood work within the week, including white blood cell count - Review results at the next appointment 8. Follow-up appointments - Schedule a follow-up appointment with HIMANSHU Zhang in one week - Keep the scheduled appointment with Bhavya Santana 9. Medication management - Continue current medications as prescribed, including Lyrica, Mounjaro, levothyroxine, metoprolol, primidone, temozolomide, rosuvastatin, omeprazole, losartan potassium, tamsulosin, fluoxetine, Rexulti, trazodone, and duloxetine - Reassess medication regimen during follow-up appointments - He reports taking Lyrica in the morning and afternoon instead of before bedtime 12/03/2023 Generalized anxiety disorder (ICD-10 - F41.1) 1. Tardive dyskinesia - Continue Austedo XR 12 MG daily in am for tardive dyskinesia management- no refill needed today - He reports some improvement with Austedo, will monitor 2. Side effects of Austedo and duloxetine - Monitor for significant sleepiness, clumsiness, and dizziness - Educate patient on the possibility of side effects subsiding as the body adjusts to the medication 3. Dehydration- educated to increase water intake and limit coffee and tea - Encourage patient to increase fluid intake until urine is clear - Monitor for improvement in dizziness and sweating - He reports dark urine 4. Blood pressure management - He to monitor blood pressure at home or at a local pharmacy labs scheduled 12/03/23 PCP ordered - Consider purchasing a home blood pressure monitor 5. Blood sugar management - Continue current diabetes medications (Levemir, Lispro, and metformin) - He to monitor blood sugar levels twice daily - He reports blood sugar levels running under 200 6. 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 Laboratory tests scheduled 12/03 23 8. Follow-up appointments - scheduled 3-4 weeks 9. Medication management educated on rx, benefits, side effects andrisk - Reassess medication regimen during follow-up appointments http_s://www.nam i.org/About-Ment al-Illness/Menta n-Ggrfki-Bgjpavf ons http_s://[employer]/depramber héctor/the-cogniti zk-rykeawbx-st-d epression#treatm ents http__s://www.ni mh.nih.gov/healt h/topics/mental- health-medicatio ns http__s://www.na mi.org/About-Men juliann-Illness/Miesha tments/Mental-He alth-Medications educated on all medications, benefits, side effects and risk, and educated on depression, anxiety, and ADHD, mood d/o and educated on compliance of medications, metabolic and movement d/o education appointment's, continue therapy discussion with patient about course of treatment and patient instructions. education on serotonin syndrome educated on all medications, benefits, side effects and risk, and educated on depression, anxiety, and ADHD, mood d/o and educated on compliance of medications, metabolic and movement d/o education appointment is, continue therapy discussion with patient about course of treatment and patient instructions. education on serotonin syndrome SSRI/SNRI side effects discussed including but not limited to, gastric upset, nausea, vomiting, diarrhea and/or constipation, weight changes, sexual side effects including loss of libido, increased suicidal thoughts/behavio rs in children and young adults, and serotonin syndrome. Second generation antipsychotics (SGAs) have metabolic syndrome issues with weight gain, increase in prolactin, increased waist circumference, increased lipids, and increased glucose. Thus routine monitoring of weight, metabolic labs, etc. is indicated. A general rank ordering of antipsychotics that have the greatest to the least risk of metabolic effects is olanzapine, quetiapine, risperidone, ziprasidone, and aripiprazole. However, weight gain can occur with all of these drugs and considerable variability exists among patients receiving the same drug regarding the risk of metabolic effects. Anti-psychotic agents not only increase the risk of metabolic disorder, they also increase the risk of CVA, akathisia, and movement disorders including EPS or tardive dyskinesia (more common with first generation antipsychotics) and more. Medication Management and Follow-Up - Plan: - Schedule follow-up appointments every 1-3 months to monitor the patient's response to the medication regimen. - Reinforce the importance of avoiding recreational drug use due to potential neurotoxicity and interactions with prescribed medications. 10/22/2023 Intermittent explosive disorder (ICD-10 - F63.81) Personality Disorders: Care Instructions material was published 1. 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 Rexulti 1 mg daily discuss and education Cymbalta and/or Wellbutrin for severe depression educated on both rx will add Cymbalta 30 mg daily in am for 2 weeks then increase to Cymbalta 60 mg daily in am refer to Melba and PTSD and group monitor for TD- AIMS= 1 06/21/23 minimal quiver bottom lip noted - Reported increase mouth tremors, lips, tongue and left hand tremors 10/22/23 Discuss VMAT II inhibitors- Austedo XR and Ingrezza will add Austedo XR 6 mg daily x 1 week, then 12 mg daily several teeth poor condition Prozac 40 mg daily educated on all medications, benefits, side effects and risk, and educated on depression, anxiety, and mood d/o and educated on compliance of medications, metabolic and movement d/o education appointment's, continue therapy discussion with patient about course of treatmentand patient instructions. education on serotonin syndrome SSRI/SNRI side effects discussed including but not limited to, gastric upset, nausea, vomiting, diarrhea and/or constipation, weight changes, sexual side effects including loss of libido, increased suicidal thoughts/behavio rs in children and young adults, and serotonin syndrome. Second generation antipsychotics (SGAs) have metabolic syndrome issues with weight gain, increase in prolactin, increased waist circumference, increased lipids, and increased glucose. Thus routine monitoring of weight, metabolic labs, etc. is indicated. A general rank ordering of antipsychotics that have the greatest to the least risk of metabolic effects is olanzapine, quetiapine, risperidone, ziprasidone, and aripiprazole. However, weight gain can occur with all of these drugs and considerable variability exists among patients receiving the same drug regarding the risk of metabolic effects. Anti-psychotic agents not only increase the risk of metabolic disorder, they also increase the risk of CVA, akathisia, and movement disorders including EPS or tardive dyskinesia (more common with first generation antipsychotics) and more. 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 Generalized anxiety disorder -Prozac 40 mg daily Medication Management and Follow-Up- Plan:- Schedule follow-up appointments every 1-3 months to monitor the patient's response to the medication regimen.- Reinforce the importance of avoiding recreational drug use due to potential neurotoxicity and interactions with prescribed medications. 3. Primary insomnia - patient last sleep study 12 years ago and reported he will see PCP for new study hx CPAP Trazodone 50 mg at bedtime as needed - educated on rx 4. Intermittent explosive disorder -mild - stable 5. Chronic post-traumatic stress disorder -therapy and PTSD group therapy 10/29/2023 Post-traumatic stress disorder, chronic (ICD-10 - F43.12) 10/22/2023 Post-traumatic stress disorder, chronic (ICD-10 - F43.12) Post-Traumatic Stress Disorder (PTSD): Care Instructions material was published 1. 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 Rexulti 1 mg daily discuss and education Cymbalta and/or Wellbutrin for severe depression educated on both rx will add Cymbalta 30 mg daily in am for 2 weeks then increase to Cymbalta 60 mg daily in am refer to Melba and PTSD and group monitor for TD- AIMS= 1 06/21/23 minimal quiver bottom lip noted - Reported increase mouth tremors, lips, tongue and left hand tremors 10/22/23 Discuss VMAT II inhibitors- Austedo XR and Ingrezza will add Austedo XR 6 mg daily x 1 week, then 12 mg daily several teeth poor condition Prozac 40 mg daily educated on all medications, benefits, side effects and risk, and educated on depression, anxiety, and mood d/o and educated on compliance of medications, metabolic and movement d/o education appointment's, continue therapy discussion with patient about course of treatmentand patient instructions. education on serotonin syndrome SSRI/SNRI side effects discussed including but not limited to, gastric upset, nausea, vomiting, diarrhea and/or constipation, weight changes, sexual side effects including loss of libido, increased suicidal thoughts/behavio rs in children and young adults, and serotonin syndrome. Second generation antipsychotics (SGAs) have metabolic syndrome issues with weight gain, increase in prolactin, increased waist circumference, increased lipids, and increased glucose. Thus routine monitoring of weight, metabolic labs, etc. is indicated. A general rank ordering of antipsychotics that have the greatest to the least risk of metabolic effects is olanzapine, quetiapine, risperidone, ziprasidone, and aripiprazole. However, weight gain can occur with all of these drugs and considerable variability exists among patients receiving the same drug regarding the risk of metabolic effects. Anti-psychotic agents not only increase the risk of metabolic disorder, they also increase the risk of CVA, akathisia, and movement disorders including EPS or tardive dyskinesia (more common with first generation antipsychotics) and more. 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 Generalized anxiety disorder -Prozac 40 mg daily Medication Management and Follow-Up- Plan:- Schedule follow-up appointments every 1-3 months to monitor the patient's response to the medication regimen.- Reinforce the importance of avoiding recreational drug use due to potential neurotoxicity and interactions with prescribed medications. 3. Primary insomnia - patient last sleep study 12 years ago and reported he will see PCP for new study hx CPAP Trazodone 50 mg at bedtime as needed - educated on rx 4. Intermittent explosive disorder -mild - stable 5. Chronic post-traumatic stress disorder -therapy and PTSD group therapy 12/03/2023 Post-traumatic stress disorder, chronic (ICD-10 - F43.12) 1. Tardive dyskinesia - Continue Austedo XR 12 MG daily in am for tardive dyskinesia management- no refill needed today - He reports some improvement with Austedo, will monitor 2. Side effects of Austedo and duloxetine - Monitor for significant sleepiness, clumsiness, and dizziness - Educate patient on the possibility of side effects subsiding as the body adjusts to the medication 3. Dehydration- educated to increase water intake and limit coffee and tea - Encourage patient to increase fluid intake until urine is clear - Monitor for improvement in dizziness and sweating - He reports dark urine 4. Blood pressure management - He to monitor blood pressure at home or at a local pharmacy labs scheduled 12/03/23 PCP ordered - Consider purchasing a home blood pressure monitor 5. Blood sugar management - Continue current diabetes medications (Levemir, Lispro, and metformin) - He to monitor blood sugar levels twice daily - He reports blood sugar levels running under 200 6. 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 Laboratory tests scheduled 12/03 23 8. Follow-up appointments - scheduled 3-4 weeks 9. Medication management educated on rx, benefits, side effects andrisk - Reassess medication regimen during follow-up appointments http_s://www.nam i.org/About-Ment al-Illness/Menta m-Hmnjaj-Hydksmy ons http_s://[facility]/depres héctor/the-cogniti cn-gzdpzdeo-ba-d epression#treatm ents http__s://www.ni mh.nih.gov/healt h/topics/mental- health-medicatio ns http__s://www.na mi.org/About-Men juliann-Illness/Miesha tments/Mental-He alth-Medications educated on all medications, benefits, side effects and risk, and educated on depression, anxiety, and ADHD, mood d/o and educated on compliance of medications, metabolic and movement d/o education appointment's, continue therapy discussion with patient about course of treatment and patient instructions. education on serotonin syndrome educated on all medications, benefits, side effects and risk, and educated on depression, anxiety, and ADHD, mood d/o and educated on compliance of medications, metabolic and movement d/o education appointment is, continue therapy discussion with patient about course of treatment and patient instructions. education on serotonin syndrome SSRI/SNRI side effects discussed including but not limited to, gastric upset, nausea, vomiting, diarrhea and/or constipation, weight changes, sexual side effects including loss of libido, increased suicidal thoughts/behavio rs in children and young adults, and serotonin syndrome. Second generation antipsychotics (SGAs) have metabolic syndrome issues with weight gain, increase in prolactin, increased waist circumference, increased lipids, and increased glucose. Thus routine monitoring of weight, metabolic labs, etc. is indicated. A general rank ordering of antipsychotics that have the greatest to the least risk of metabolic effects is olanzapine, quetiapine, risperidone, ziprasidone, and aripiprazole. However, weight gain can occur with all of these drugs and considerable variability exists among patients receiving the same drug regarding the risk of metabolic effects. Anti-psychotic agents not only increase the risk of metabolic disorder, they also increase the risk of CVA, akathisia, and movement disorders including EPS or tardive dyskinesia (more common with first generation antipsychotics) and more. Medication Management and Follow-Up - Plan: - Schedule follow-up appointments every 1-3 months to monitor the patient's response to the medication regimen. - Reinforce the importance of avoiding recreational drug use due to potential neurotoxicity and interactions with prescribed medications. 11/10/2023 Post-traumatic stress disorder, chronic (ICD-10 - F43.12) 1. Tardive dyskinesia - Continue Austedo for tardive dyskinesia management - Decrease Austedo to 6 mg and reassess in one week - Patient to follow up in one week. - He reports some improvement with Austedo, but feels he may have reached tolerance 2. Side effects of Austedo and duloxetine - Monitor for significant sleepiness, clumsiness, and dizziness - Educate patient on the possibility of side effects subsiding as the body adjusts to the medication - Reassess side effects in one week - He reports sleepiness, clumsiness, and dizziness as main side effects 3. Dehydration - Encourage patient to increase fluid intake until urine is clear - Monitor for improvement in dizziness and sweating - He reports dark urine and increased sweating - patient notably sweaty during assessment. 4. Blood pressure management - He to monitor blood pressure at home or at a local pharmacy - Address dizziness with position changes and potential dehydration - Consider purchasing a home blood pressure monitor 5. Blood sugar management - Continue current diabetes medications (Levemir, Lispro, and metformin) - He to monitor blood sugar levels twice daily - He reports blood sugar levels running between 160-180 6. 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 Laboratory tests - He to complete blood work within the week, including white blood cell count - Review results at the next appointment 8. Follow-up appointments - Schedule a follow-up appointment with HIMANSHU Zhang in one week - Keep the scheduled appointment with Bhavya Santana 9. Medication management - Continue current medications as prescribed, including Lyrica, Mounjaro, levothyroxine, metoprolol, primidone, temozolomide, rosuvastatin, omeprazole, losartan potassium, tamsulosin, fluoxetine, Rexulti, trazodone, and duloxetine - Reassess medication regimen during follow-up appointments - He reports taking Lyrica in the morning and afternoon instead of before bedtime 11/10/2023 Primary insomnia (ICD-10 - F51.01) 1. Tardive dyskinesia - Continue Austedo for tardive dyskinesia management - Decrease Austedo to 6 mg and reassess in one week - Patient to follow up in one week. - He reports some improvement with Austedo, but feels he may have reached tolerance 2. Side effects of Austedo and duloxetine - Monitor for significant sleepiness, clumsiness, and dizziness - Educate patient on the possibility of side effects subsiding as the body adjusts to the medication - Reassess side effects in one week - He reports sleepiness, clumsiness, and dizziness as main side effects 3. Dehydration - Encourage patient to increase fluid intake until urine is clear - Monitor for improvement in dizziness and sweating - He reports dark urine and increased sweating - patient notably sweaty during assessment. 4. Blood pressure management - He to monitor blood pressure at home or at a local pharmacy - Address dizziness with position changes and potential dehydration - Consider purchasing a home blood pressure monitor 5. Blood sugar management - Continue current diabetes medications (Levemir, Lispro, and metformin) - He to monitor blood sugar levels twice daily - He reports blood sugar levels running between 160-180 6. 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 Laboratory tests - He to complete blood work within the week, including white blood cell count - Review results at the next appointment 8. Follow-up appointments - Schedule a follow-up appointment with HIMANSHU Zhang in one week - Keep the scheduled appointment with Bhavya Santana 9. Medication management - Continue current medications as prescribed, including Lyrica, Mounjaro, levothyroxine, metoprolol, primidone, temozolomide, rosuvastatin, omeprazole, losartan potassium, tamsulosin, fluoxetine, Rexulti, trazodone, and duloxetine - Reassess medication regimen during follow-up appointments - He reports taking Lyrica in the morning and afternoon instead of before bedtime 12/24/2023 Post-traumatic stress disorder, chronic (ICD-10 - F43.12) 1.Depresson Rexulti 1 mg daily 2. Anxiety Prozac 40 mg Cymbalta 90 mg daily in am 3. Insomnia Trazodone 50 mg 4.Tardive dyskinesia - Increase Austedo XR 18 MG daily in am for tardive dyskinesia management- [facility] - He reports increase oral movements on Austedo, AIMS= 8 12/24/23 . Side effects of Austedo and duloxetine - Patient reported not having s/e of sleepiness, clumsiness, and dizziness - Educate patient on the possibility of side effects subsiding as the body adjusts to the medication Laboratory tests scheduled - will have labs done . Follow-up appointments - scheduled 3-4 weeks . Medication management educated on rx, benefits, side effects andrisk - Reassess medication regimen during follow-up appointments http_s://www.nam i.org/About-Ment al-Illness/Menta p-Iueeyp-Idfyvwl ons http_s://psychce ntral.com/depramber héctor/the-cogniti dj-litpvbne-rl-d epression#treatm ents http__s://www.ni mh.nih.gov/healt h/topics/mental- health-medicatio ns http__s://www.na mi.org/About-Men juliann-Illness/Miesha tments/Mental-He alth-Medications educated on all medications, benefits, side effects and risk, and educated on depression, anxiety, and ADHD, mood d/o and educated on compliance of medications, metabolic and movement d/o education appointment is, continue therapy discussion with patient about course of treatment and patient instructions. education on serotonin syndrome SSRI/SNRI side effects discussed including but not limited to, gastric upset, nausea, vomiting, diarrhea and/or constipation, weight changes, sexual side effects including loss of libido, increased suicidal thoughts/behavio rs in children and young adults, and serotonin syndrome. Second generation antipsychotics (SGAs) have metabolic syndrome issues with weight gain, increase in prolactin, increased waist circumference, increased lipids, and increased glucose. Thus routine monitoring of weight, metabolic labs, etc. is indicated. A general rank ordering of antipsychotics that have the greatest to the least risk of metabolic effects is olanzapine, quetiapine, risperidone, ziprasidone, and aripiprazole. However, weight gain can occur with all of these drugs and considerable variability exists among patients receiving the same drug regarding the risk of metabolic effects. Anti-psychotic agents not only increase the risk of metabolic disorder, they also increase the risk of CVA, akathisia, and movement disorders including EPS or tardive dyskinesia (more common with first generation antipsychotics) and more. Medication Management and Follow-Up - Plan: - Schedule follow-up appointments every 1-3 months to monitor the patient's response to the medication regimen. - Reinforce the importance of avoiding recreational drug use due to potential neurotoxicity and interactions with prescribed medications.. - 01/24/2024 Post-traumatic stress disorder, chronic (ICD-10 - F43.12) 1.Depresson Rexulti 1 mg daily 2. Anxiety Prozac 40 mg Cymbalta 90 mg daily in am 3. Insomnia Trazodone 50 mg 4.Tardive dyskinesia - Austedo XR 18 MG PA denied Austedo 9 mg twice daily for tardive dyskinesia management- [facility] - He reports increase oral movements on Austedo, AIMS= 8 12/24/23 . Side effects of Austedo and duloxetine - Patient reported not having s/e of sleepiness, clumsiness, and dizziness - Educate patient on the possibility of side effects subsiding as the body adjusts to the medication Laboratory tests scheduled - will have labs done today . Follow-up appointments -refer to therapy . Medication management educated on rx, benefits, side effects andrisk - Reassess medication regimen during follow-up appointments http_s://www.nam i.org/About-Ment al-Illness/Menta c-Sqolkd-Ykypupt ons http_s://psychce [employer].com/depramber héctor/the-cogniti sl-rjcwitap-ay-d epression#treatm ents http__s://www.ni .nih.gov/healt h/topics/mental- health-medicatio ns http__s://www.na mi.org/About-Men juliann-Illness/Miesha tments/Mental-He alth-Medications educated on all medications, benefits, side effects and risk, and educated on depression, anxiety, and ADHD, mood d/o and educated on compliance of medications, metabolic and movement d/o education appointment is, continue therapy discussion with patient about course of treatment and patient instructions. education on serotonin syndrome SSRI/SNRI side effects discussed including but not limited to, gastric upset, nausea, vomiting, diarrhea and/or constipation, weight changes, sexual side effects including loss of libido, increased suicidal thoughts/behavio rs in children and young adults, and serotonin syndrome. Second generation antipsychotics (SGAs) have metabolic syndrome issues with weight gain, increase in prolactin, increased waist circumference, increased lipids, and increased glucose. Thus routine monitoring of weight, metabolic labs, etc. is indicated. A general rank ordering of antipsychotics that have the greatest to the least risk of metabolic effects is olanzapine, quetiapine, risperidone, ziprasidone, and aripiprazole. However, weight gain can occur with all of these drugs and considerable variability exists among patients receiving the same drug regarding the risk of metabolic effects. Anti-psychotic agents not only increase the risk of metabolic disorder, they also increase the risk of CVA, akathisia, and movement disorders including EPS or tardive dyskinesia (more common with first generation antipsychotics) and more. Medication Management and Follow-Up - Plan: - Schedule follow-up appointments every 1-3 months to monitor the patient's response to the medication regimen. - Reinforce the importance of avoiding recreational drug use due to potential neurotoxicity and interactions with prescribed medications.. - 01/24/2024 Primary insomnia (ICD-10 - F51.01) Insomnia: Care Instructions material was published, Learning About Sleeping Well material was published 1.Depresson Rexulti 1 mg daily 2. Anxiety Prozac 40 mg Cymbalta 90 mg daily in am 3. Insomnia Trazodone 50 mg 4.Tardive dyskinesia - Austedo XR 18 MG PA denied Austedo 9 mg twice daily for tardive dyskinesia management- [facility] - He reports increase oral movements on Austedo, AIMS= 8 12/24/23 . Side effects of Austedo and duloxetine - Patient reported not having s/e of sleepiness, clumsiness, and dizziness - Educate patient on the possibility of side effects subsiding as the body adjusts to the medication Laboratory tests scheduled - will have labs done today . Follow-up appointments -refer to therapy . Medication management educated on rx, benefits, side effects andrisk - Reassess medication regimen during follow-up appointments http_s://www.nam i.org/About-Ment al-Illness/Menta y-Avrnfa-Iidkkuh ons http_s://[facility]/depramber héctor/the-cogniti zq-wsvvfqcr-xq-d epression#treatm ents http__s://www.ni .nih.gov/healt h/topics/mental- health-medicatio ns http__s://www.na mi.org/About-Men juliann-Illness/Miesha tments/Mental-He alth-Medications educated on all medications, benefits, side effects and risk, and educated on depression, anxiety, and ADHD, mood d/o and educated on compliance of medications, metabolic and movement d/o education appointment is, continue therapy discussion with patient about course of treatment and patient instructions. education on serotonin syndrome SSRI/SNRI side effects discussed including but not limited to, gastric upset, nausea, vomiting, diarrhea and/or constipation, weight changes, sexual side effects including loss of libido, increased suicidal thoughts/behavio rs in children and young adults, and serotonin syndrome. Second generation antipsychotics (SGAs) have metabolic syndrome issues with weight gain, increase in prolactin, increased waist circumference, increased lipids, and increased glucose. Thus routine monitoring of weight, metabolic labs, etc. is indicated. A general rank ordering of antipsychotics that have the greatest to the least risk of metabolic effects is olanzapine, quetiapine, risperidone, ziprasidone, and aripiprazole. However, weight gain can occur with all of these drugs and considerable variability exists among patients receiving the same drug regarding the risk of metabolic effects. Anti-psychotic agents not only increase the risk of metabolic disorder, they also increase the risk of CVA, akathisia, and movement disorders including EPS or tardive dyskinesia (more common with first generation antipsychotics) and more. Medication Management and Follow-Up - Plan: - Schedule follow-up appointments every 1-3 months to monitor the patient's response to the medication regimen. - Reinforce the importance of avoiding recreational drug use due to potential neurotoxicity and interactions with prescribed medications.. - 12/24/2023 Primary insomnia (ICD-10 - F51.01) 1.Depresson Rexulti 1 mg daily 2. Anxiety Prozac 40 mg Cymbalta 90 mg daily in am 3. Insomnia Trazodone 50 mg 4.Tardive dyskinesia - Increase Austedo XR 18 MG daily in am for tardive dyskinesia management- [facility] - He reports increase oral movements on Austedo, AIMS= 8 12/24/23 . Side effects of Austedo and duloxetine - Patient reported not having s/e of sleepiness, clumsiness, and dizziness - Educate patient on the possibility of side effects subsiding as the body adjusts to the medication Laboratory tests scheduled - will have labs done . Follow-up appointments - scheduled 3-4 weeks . Medication management educated on rx, benefits, side effects andrisk - Reassess medication regimen during follow-up appointments http_s://www.nam i.org/About-Ment al-Illness/Menta i-Ajlgiu-Xoygqfu ons http_s://[facility]/depramber héctor/the-cogniti mx-vcadbpfi-cl-d epression#treatm ents http__s://www.ni .nih.gov/healt h/topics/mental- health-medicatio ns http__s://www.na mi.org/About-Men juliann-Illness/Miesha tments/Mental-He alth-Medications educated on all medications, benefits, side effects and risk, and educated on depression, anxiety, and ADHD, mood d/o and educated on compliance of medications, metabolic and movement d/o education appointment is, continue therapy discussion with patient about course of treatment and patient instructions. education on serotonin syndrome SSRI/SNRI side effects discussed including but not limited to, gastric upset, nausea, vomiting, diarrhea and/or constipation, weight changes, sexual side effects including loss of libido, increased suicidal thoughts/behavio rs in children and young adults, and serotonin syndrome. Second generation antipsychotics (SGAs) have metabolic syndrome issues with weight gain, increase in prolactin, increased waist circumference, increased lipids, and increased glucose. Thus routine monitoring of weight, metabolic labs, etc. is indicated. A general rank ordering of antipsychotics that have the greatest to the least risk of metabolic effects is olanzapine, quetiapine, risperidone, ziprasidone, and aripiprazole. However, weight gain can occur with all of these drugs and considerable variability exists among patients receiving the same drug regarding the risk of metabolic effects. Anti-psychotic agents not only increase the risk of metabolic disorder, they also increase the risk of CVA, akathisia, and movement disorders including EPS or tardive dyskinesia (more common with first generation antipsychotics) and more. Medication Management and Follow-Up - Plan: - Schedule follow-up appointments every 1-3 months to monitor the patient's response to the medication regimen. - Reinforce the importance of avoiding recreational drug use due to potential neurotoxicity and interactions with prescribed medications.. - 12/03/2023 Primary insomnia (ICD-10 - F51.01) 1. Tardive dyskinesia - Continue Austedo XR 12 MG daily in am for tardive dyskinesia management- no refill needed today - He reports some improvement with Austedo, will monitor 2. Side effects of Austedo and duloxetine - Monitor for significant sleepiness, clumsiness, and dizziness - Educate patient on the possibility of side effects subsiding as the body adjusts to the medication 3. Dehydration- educated to increase water intake and limit coffee and tea - Encourage patient to increase fluid intake until urine is clear - Monitor for improvement in dizziness and sweating - He reports dark urine 4. Blood pressure management - He to monitor blood pressure at home or at a local pharmacy labs scheduled 12/03/23 PCP ordered - Consider purchasing a home blood pressure monitor 5. Blood sugar management - Continue current diabetes medications (Levemir, Lispro, and metformin) - He to monitor blood sugar levels twice daily - He reports blood sugar levels running under 200 6. 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 Laboratory tests scheduled 12/03 23 8. Follow-up appointments - scheduled 3-4 weeks 9. Medication management educated on rx, benefits, side effects andrisk - Reassess medication regimen during follow-up appointments http_s://www.nam i.org/About-Ment al-Illness/Menta j-Oyoduz-Sckqddq ons http_s://[facility]/depramber héctor/the-cogniti ge-pgcjvjri-br-d epression#treatm ents http__s://www.ni .nih.gov/healt h/topics/mental- health-medicatio ns http__s://www.na mi.org/About-Men juliann-Illness/Miesha tments/Mental-He alth-Medications educated on all medications, benefits, side effects and risk, and educated on depression, anxiety, and ADHD, mood d/o and educated on compliance of medications, metabolic and movement d/o education appointment's, continue therapy discussion with patient about course of treatment and patient instructions. education on serotonin syndrome educated on all medications, benefits, side effects and risk, and educated on depression, anxiety, and ADHD, mood d/o and educated on compliance of medications, metabolic and movement d/o education appointment is, continue therapy discussion with patient about course of treatment and patient instructions. education on serotonin syndrome SSRI/SNRI side effects discussed including but not limited to, gastric upset, nausea, vomiting, diarrhea and/or constipation, weight changes, sexual side effects including loss of libido, increased suicidal thoughts/behavio rs in children and young adults, and serotonin syndrome. Second generation antipsychotics (SGAs) have metabolic syndrome issues with weight gain, increase in prolactin, increased waist circumference, increased lipids, and increased glucose. Thus routine monitoring of weight, metabolic labs, etc. is indicated. A general rank ordering of antipsychotics that have the greatest to the least risk of metabolic effects is olanzapine, quetiapine, risperidone, ziprasidone, and aripiprazole. However, weight gain can occur with all of these drugs and considerable variability exists among patients receiving the same drug regarding the risk of metabolic effects. Anti-psychotic agents not only increase the risk of metabolic disorder, they also increase the risk of CVA, akathisia, and movement disorders including EPS or tardive dyskinesia (more common with first generation antipsychotics) and more. Medication Management and Follow-Up - Plan: - Schedule follow-up appointments every 1-3 months to monitor the patient's response to the medication regimen. - Reinforce the importance of avoiding recreational drug use due to potential neurotoxicity and interactions with prescribed medications. 10/22/2023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
--- OUTSIDE RECORDS SUMMARY | 2024-03-24 03:34 | XMS_ITS ---
Author Organization [facility] [employer] Address [address] [place] [address] Care Team Providers Care Liability Claims Manager Name Role Phone Calderon Keen MD Primary Care Provider UnavailBhavya Arias Unavailable [phone] Bekah Hurtado Unavailable [phone] REASON FOR VISIT anxiety, depression, trauma Medications Medication SIG (Take, Route, Frequency, Duration) Notes Start Date End Date Status ULTRA-FINE SHORT PEN NEEDLE 31 gauge x 5/16 MISCELLANEOUS *Reorder from [employer] water systems for eRx and Interaction Alerts* 06/21/2023 Active Levemir FlexPen 100 unit/mL (3 mL) 32 SUBCUTANEOUS bid 06/21/2023 Active Levothyroxine Sodium 25 MCG Oral in addition to 200 mcg 06/21/2023 Active Metoprolol Succinate ER 25 MG 0.5 tablets Oral Once a day 06/21/2023 Active Mounjaro 10 MG/0.5ML as directed Subcutaneous 10 units Active DULoxetine HCl 60 MG 1 cap Orally Once a day for 30 days Active Gabapentin 800 MG 1 tablet Orally three times a day Active traZODone HCl 50 MG 1 tablet at bedtime Oral at bedtime for 30 days Active DULoxetine HCl 30 MG 1 capsule Orally Once a day for 30 days Active Tamsulosin HCl 0.4 MG Oral 06/21/2023 Active Austedo 9 MG 1 tablet with food Orally Twice a day for 30 days XR D/C- PA denied Active FLUoxetine HCl 40 MG 1 capsule Oral Once a day for 30 days Active Rexulti 1 MG 1 tablet Oral Once a day for 30 days Active Nitroglycerin 0.4 MG Sublingual 06/21/2023 Active Losartan Potassium 25 MG 1 tablet Orally Once a day 06/21/2023 Active Levothyroxine Sodium 200 MCG Oral in addition to 25 MCG 06/21/2023 Active Torsemide 20 MG as directed Oral 06/21/2023 Active metFORMIN HCl 1000 MG 1 tablet with a meal Oral twice a day 06/21/2023 Active Rosuvastatin Calcium 40 MG Oral 06/21/2023 Active Omeprazole 40 MG 1 capsule 30 minutes before morning meal Orally Once a day *Pick strength-form from [employer] water systems for eRX* 06/21/2023 Active Primidone 250 MG Oral 06/21/2023 Ac tive Insulin Lispro (1 Unit Dial) 100 UNIT/ML Subcutaneous 15 UNITS AC 06/21/2023 Active Social History Tobacco Use: Social History [...] nsmoker Encounters Encounter Location Date Provider Diagnosis [facility] [address] [facility] [address] [place] [address] 02/02/2024 Bekah Hurtado Major depressive disorder, recurrent severe without psychotic features F33.2 ; Generalized anxiety disorder F41.1 and Post-traumatic stress disorder, chronic F43.12 Assessments Encounter Date Diagnosis (ICD Code) Assessment Notes Treatment Notes Treatment Clinical Notes Section Notes 02/02/2024 Major depressive disorder, recurrent severe without psychotic features (ICD-10 - F33.2) 02/02/2024 Generalized anxiety disorder (ICD-10 - F41.1) 02/02/2024 Post-traumatic stress disorder, chronic (ICD-10 - F43.12) 02/02/2024 Other Client focused on issues that have contributed to him feeling isolated. He is also depressed because doctor's have been unable to diagnose what is going on with him medically. Therapist actively listened to client and utilized a solution focused intervention by helping client explore resources in the area that might be able to help such as [facility] plus. Plan Of Treatment Next Appt Details Follow Up: 2 Weeks, Reason: therapy follow up Provider Name:Bhavya Lopez , 04/25/2024 11:30:00 AM, [address], [address], [place], [address], Progress Notes * JACQUELIN CONRAD DDOB:[birth year] (64 yo M)Acc No.[id number]:02/02/2024 Patient:?JACQUELIN CONRAD Provider:?BEKAH HURTADO LCSW :1960???Age:64 Y???Sex:Male Thomas e:02/02/2024 Phone: Address:[address], [address] Pcp:Calderon Keen MD Data: * Time Tracker: * Date Start Time End Time Duration User Type Captured By Mode Notes 02/02/2024 11:02 AM 11:49 AM 00:47:00 Therapist Bekah Hurtado anual * Chief Complaints: * ???1. Anxiety. 2. Depression . 3. Trauma. * HPI: ???Transition of Care:? Client is here today for psychotherapy to treat anxiety, depression, and trauma issues.? Based on our session, I think the patient is making moderate progress.? At this time I do not recommend changes to the treatment plan.? I do not think the patient poses significant risk of harm to self or others at this time.? Discussed continued treatment with patient. * Behavioral History: ???Past psychiatric Hospitalization:Yes.?When and [...] MISCELLANEOUS , Notes to Pharmacist: *Reorder from [facility] for eRx and Interaction Alerts*, Taking Levemir [...] , Notes to Pharmacist: *Pick strength-form from [facility] for eRX*, Taking Nitroglycerin 0.4 MG Tablet Sublingual Sublingual , Taking Losartan Potassium 25 MG Tablet 1 tablet Orally Once a day , Taking Austedo 9 MG Tablet 1 tablet with food Orally Twice a day , Notes to Pharmacist: XR D/C- PA denied, Notes: take Austedo twice a day, Taking FLUoxetine HCl 40 MG Capsule 1 capsule Oral Once a day , Taking Rexulti 1 MG Tablet 1 tablet Oral Once a day , Medication List reviewed and reconciled with the patient * Examination: ???General Examination: ???Client is casually groomed and oriented X 3. Assessment: * Assessment: 1.?Major depressive disorder , recurrent severe without psychotic features - F33.2 (Primary)???2.?Generalized anxiety disorder - F41.1???3.?Post-traumatic stress disorder, chronic - F43.12??? Plan: * Treatment: * Procedure Codes:?49807 PSYCH OTHERAPY W/PATIENT 45 MINUTES * Follow Up:?2 Weeks (Reason: therapy follow up) * Billing Information: * Visit Code:? * Procedure Codes:? 96246 PSYCHOTHERAPY W/PATIENT 45 MINUTES. * ASSISTANT Sign off status: Completed Signatures: No Ad Hoc Signature Added true * Provider:?BEKAH HURTADO LCSW Date:?05/2023 Generated for Amrit hernandez/Karin/eTransmitting on:?03/24/2024 03:33 AM CAFE ASSISTANT History and Physical Notes * HPI (History of Present Illness) Category Sub-Category Detail Notes Category Not es Transition of Care Client is here today for psychotherapy to treat anxiety, depression, and trauma issues. Based on our session, I think the patient is making moderate progress. At this time I do not recommend changes to the treatment plan. I do not think the patient poses significant risk of harm to self or others at this time. Discussed continued treatment with patient. Examination Category Sub-Category Detail Notes Category Not es General Examination Client i s casually groomed and oriented X 3
--- OUTSIDE RECORDS SUMMARY | 2024-03-24 03:34 | XMS_ITS ---
Author Organization [facility] Address [address] [place] [address] Care Team Providers Care Hospital Secretary Name Role Phone Calderon Keen MD Primary Care Provider Unavailabl peterson LopezBhavya Unavailable [phone] REASON FOR VISIT PA Darryl Social History Sex Assigned At : Social History Observation Description Sex Assigned At Male Encounters Encounter Location Date Provider Diagnosis [facility] [place] [address] [facility] [address] [place] [address] 02/08/2024 Bhavya Lopez On [facility] drug therapy Z79.899 Assessments Encounter Date Diagnosis (ICD Code) Assessment Notes Treatment Notes Treatment Clinical Notes Section Notes 02/08/2024 On bed bug exterminator drug therapy (ICD-10 - Z79.899) Electronic Prior Authorization was requested for Austedo 6 MG Tablet. Provider can order medication once approval received. Plan Of Treatment Treatment Notes Assessment Notes On bed bug exterminator drug therapy Electronic Bekah or Authorization was requested for Austedo 6 MG Tablet. Provider can order medication once approval received. Next Appt Details Provider Name:Bhavya Lopez , 04/25/2024 11:30:00 AM, [address], [address], [place], [address], Progress Notes * JACQUELIN CONRAD DDOB:[birth year] (64 yo M)Acc No.[id number]:02/08/2024 Patient:?JACQUELIN CONRAD :1960???Age:64 Y???Sex:Male Phone: Address:[address], [address], [place], [address] Subjective: * Chief Complaints: * ???PA Austedo * Medical History:? * Surgical History:? * Hospitalization/Major Diagno stic Procedure:? * Medications:? Objective: * Vitals:? * Physical Examination:? Assessment: * Assessment: 1.?On bed bug exterminator drug therapy - Z79.899 (Primary)??? Plan: * Treatment: * Procedure Codes:? * true * Date:? Generated for Amrit hernandez/Karin/eTkevynsmitting on:?03/24/2024 03:33 AM PUBLIC HEALTH VETERINARIAN
--- OUTSIDE RECORDS SUMMARY | 2024-03-24 03:39 | XMS_ITS | CONTINUITY OF CARE DOCUMENT ---
Author Name zuleika to Address Unknown Organization [facility] Address [address] [facility] [address] [place] [address] Phone [phone] Care Team Providers Care Director Of Safety And Security Name Role Phone Anuradha CROCKER, Dolores Pompa Unavailable DAVID CROCKER, SAGE Unavailable [phone] LATIA CROCKER, CORAL Unavailable [phone] PROBLEMS Condition Status Date Provider Notes Shortness [...] In-person encounter Office Visit Dolores Ling MD [facility] Gallstones - In-person encounter Office Visit Dolores Ling MD [facility] - In-person encounter Office Visit Dolores Ling MD [facility] Palpitations - In-person encounter Office Visit Dolores Ling MD [facility] Abnormal cardiovascular stress test - In-person encounter Office Visit Dolores Ling MD [facility] - In-person encounter Office Visit Dolores Ling MD [facility] Family History Coronary Heart Disease male [...] Dunn blood pressure, systolic 132 mm[Hg] Vivi Dunn oxygen saturation, oximetry 98 % Yi Dunn respiratory rate E&M 18 /min Alexander Dunn pulse rate 60 /min Yi Jordan nson weight E&M 254.2 [lb_av] Yi Smith enson height E&M 70 [in_i] Yi Jordan nslynda Body Mass Index (Ratio) 39.11 kg/m2 Lewis Ling MD blood pressure, diastolic 79 mm[Hg] Mary Dunn blood pressure, systolic 132 mm[Hg] Vivi Dunn oxygen saturation, oximetry 98 % Yi [...] /min Carol Mack height E&M 70 [in_i] [facility] weight E&M 270 [lb_av] [facility] ALLERGIES No Known Drug Allergies RESULTS Date Observation Value Provider Reference Range Interpretation Location prothrombin time (patient) 10.3 s [facility] 9.1-12.0 international normalized ratio (INR) 1.0 [facility] 0.8-1.2 calcium, serum 9.8 mg/dL [facility] 8.7-10.2 carbon dioxide, venous blood 20 mmol/L [facility] 20-29 chloride, serum 104 mmol/L [facility] 96-106 potassium, serum 4.9 mmol/L [facility] 3.5-5.2 sodium, serum 139 mmol/L [facility] [phone]/12/ 15 urea nitrogen/creatinine ratio, serum 25 [facility] [...] Not Estab. platelet count 216 X10E3/UL [facility] 427-253 8508/12/ 15 red blood cell distribution width 13.2 [...] 0-149 High cholesterol, serum 145 mg/dL [facility] 442-639 3831/12/ 05 alanine aminotransferase (SGPT), serum 23 1/L [...] [facility] 3.5-5.2 sodium, serum 139 mmol/L [facility] 943-013 1592/12/ 05 urea nitrogen/creatinine ratio, serum 21 [facility] [...] Not Estab. platelet count 232 X10E3/UL [facility] [phone]/09/ 22 red blood cell distribution width 14.0 [...] [facility] 3.5-5.2 sodium, serum 135 mmol/L [facility] [phone]/09/ 21 urea nitrogen/creatinine ratio, serum 25 [facility] 9-20 High eGFR if 70 mL/min/{1. 73_m2} [facility] >59 eGFR if not 61 mL/min/{1. 73_m2} [facility] >59 creatinine, serum 1.30 mg/dL [facility] 0.76-1.27 High urea nitrogen, blood 33 mg/dL [facility] 6-24 High blood glucose, random 321 mg/dL [facility] 65-99 High HISTORY OF MEDICATION USE Medication Status Instructions Dates Provider Indications Com formerly [facility] [place] MIX 70/30 FLEXPEN SUSPENSION PEN-INJECTOR [...] smoking history, tot al pack/day 2 Carol Mcak cigarette use yes Carol Mack smoking status [...] Payer name Policy type / Coverage type [place] [employer] green party ID [facility] [id number] ADVANCE DIRECTIVES Name Date DISCUSSED - NO [...] a very small vessel and 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 LCX has 50-60% stenosis [...] Cardiology: O rders: 9 9215 HIGH Complex (CPT-50009) C oronary Stent - [facility] (CPT-91145) Dolores Ling MD Cardiology:Reviewed cath with him. Potentially stentable LCX. May need to do ostial L vein LMT or otherwise plan for 2 stents to the LCX. He is able to delay his gallbladder surgery for [address] Evans for that. Will schedule him for LHC and stent at [facility]. 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 LCX has 50-60% stenosis [...] study. O rders: S leep Study Home (CPT-75834) Tripp Rene Cardiology [place]:Added HCTZ [...] for perfusion. O rders: C omplete Echo (CPT-75792) C arotid Duplex Bilateral (CPT-96418) S TR - Nuclear (CPT-44038) F VC - 36530 (90316) F RC - 08280 (97443) D LCO - 09113 (80911) Dolores Ling MD Cardiology [place] nt:Check [...] LIC PANEL, W/EGFR LIPID PANEL DLCO - 55251 FRC - 69027 FVC - 82403 STR - Nuclear Carotid Duplex Bilat eral [...] d FVC / MVV with bronchodilator - 12988 Dolores Ling MD completed BLOOD COUNT HEMOGLOBIN Dolores Ling MD completed FRC - 63072 Dolores Ling MD comp leted SpO2 w/o 6min walk/titration Dolores Ling MD completed DLCO - 18703 Dolores Ling MD com pleted EKG Dolores Ling MD compl eted
== END 2024-03-22 21:23 | disposition home or self-care (01) ==
PROVIDERS: Emergency Provider Emergency Medicine; PCP Nurse Practitioner Adult Health
DX: S91.114A Laceration without foreign body of right lesser toe(s) without damage to nail, initial encounter (principal); S09.90XA Unspecified injury of head, initial encounter; Z23 Encounter for immunization; I25.10 Atherosclerotic heart disease of native coronary artery without angina pectoris; I11.9 Hypertensive heart disease without heart failure; I25.2 Old myocardial infarction; J44.9 Chronic obstructive pulmonary disease, unspecified; E11.40 Type 2 diabetes mellitus with diabetic neuropathy, unspecified; E78.5 Hyperlipidemia, unspecified; E03.9 Hypothyroidism, unspecified; K21.9 Gastro-esophageal reflux disease without esophagitis; G47.33 Obstructive sleep apnea (adult) (pediatric); F32.A Depression, unspecified; F41.9 Anxiety disorder, unspecified; Z66 Do not resuscitate; Z95.1 Presence of aortocoronary bypass graft; Z87.891 Personal history of nicotine dependence; Z90.49 Acquired absence of other specified parts of digestive tract; Z79.02 Long term (current) use of antithrombotics/antiplatelets; Z79.82 Long term (current) use of aspirin; Z79.84 Long term (current) use of oral hypoglycemic drugs; Z79.85 Long-term (current) use of injectable non-insulin antidiabetic drugs; Z79.4 Long term (current) use of insulin; Z79.899 Other long term (current) drug therapy; W01.119A Fall on same level from slipping, tripping and stumbling with subsequent striking against unspecified sharp object, initial encounter
CPT/HCPCS: 12001; 70450; 90471; 90715; 99284

== ENCOUNTER 2024-06-07 10:11 | Inpatient (IN) | payer MEDICARE, MEDICAID, SELFPAY ==
[2024-06-07] VITALS (13 sets, daily range): BP systolic 126–180; BP diastolic 74–92; PULSE 52–63; RESP 9–20; TEMP 36.3; O2SAT 94–100; BMI 31.9
--- NOTE | ~2024-06-07 | CT_ITS ---
EXAM: CT brain wo con - 06/07/2024 12:40 CDT History: 64 years old Male with Vertigo COMPARISON: 03/22/2024 PROCEDURE: CT of the head without contrast. Axial, sagittal and coronal reformatted planes were terrance luated. Automatic exposure control was used for this study. FINDINGS: BRAIN PARENCHYMA: No acute hemorrhage. No mass effect or herniation. Burroughs-white matter differentiatio n is maintained. Mild chronic volume loss. Scattered hypodensities in subcortical and periventricular white matter, likely representing chronic microvascular ischemic changes in this age group. Atherosc lerotic calcification of the intracranial vessels is noted. VENTRICLES/ EXTRA-AXIAL SPACES: No hydrocephalus or extra-axial fluid collection. EXTRACRANIAL STRUCTURES: No calvarial fracture. IMPRESSION: No evidence for acute intracranial hemorrhage or calvarial fracture. Reviewed, dictated and finalized at location A.
--- NOTE | ~2024-06-07 | XR_ITS ---
EXAMINATION: XR chest 2V DATE: 06/07/2024 11:07 INDICATION: Nausea and weakness TECHNIQUE: PA and lateral views of the chest were obtained. COMPARISON: Chest radiograph dated 07/21/2019 FINDINGS: Again seen is linear and streaky atelectasis at the left lung base. No new airspace opacities, pulmon jarad edema, pleural effusion or pneumothorax. Cardiomegaly. Median sternotomy wires and mediastinal brennan rgical clips are seen, likely from prior coronary artery bypass grafting. Or cervical anterior spinal fusion with anterior plate and screw fixation. IMPRESSION: 1. Chronic mild left basilar atelectasis/scarring. No other acute cardiopulmonary disease. Reviewed, dictated and finalized at location B. IMPRESSION: 1. Chronic mild left basilar atelectasis/scarring. No other acute cardiopulmona ry disease.
--- NOTE | 2024-06-07 10:26 | ECG_ITS ---
Test Date: 2024-06-07 10:45:55 Measurements Intervals [place] Rate: 51 P: 50 MD: 130 QRS: 0 QRSD: 122 T: -88 QT: 483 QTc: 448 Interpretive Statements SINUS BRADYCARDIA INTRAVENTRICULAR CONDUCTION DELAY DELAYED PRECORDIAL R/S TRANSITION INFERIOR INFARCT, AGE INDETERMINATE BORDERLINE ST-T WAVE ABNORMALITY- ANTEROLAT/HIGH LAT LEADS BASELINE WANDER- II, III, AVR, AVL,A VF, V2-V6 ABNORMAL ECG No previous ECG available for comparison Electronically Signed On 06-07-2024 11:09:35 CDT by Jamaal Harkins D.O.
[2024-06-07 10:32] LABS: Glucose Point of Care > 500 mg/dl (65-105)
[2024-06-07 10:49] LABS: Basophils Absolute Auto 0.1 K/mm3 (0.0-0.1); Eosinophils Absolute Auto 0.1 K/mm3 (0-0.3); Eosinophils Percent Auto 1.9 % (0-4.4); Hemoglobin 15.7 g/dL (14.0-18.0); Immature Granulocyte Absolute 0.03 K/mm3 (0.00-0.031); Immature Granulocyte Percent A 0.4 % (0-0.5); Lymphocytes Absolute Auto 2.02 K/mm3 (0.9-3.2); Lymphocytes Percent Auto 28.9 % (18.3-44.2); Mean Corpuscular Hemoglobin 32.2 pg (26-34); Mean Platelet Volume 10.7 fl (7.4-10.4); Monocytes Absolute Auto 0.3 K/mm3 (0.1-0.6); Monocytes Percent Auto 4.9 % (2.6-8.5); Neutrophils Absolute Auto 4.4 K/mm3 (1.3-6.7); Neutrophils Percent Auto 62.9 % (45.5-73.1); Platelet Count Result 193 k/mm3 (150-375); Red Blood Count 4.88 M/mm3 (4.6-6.20); Red Cell Distribution Width 14.3 % (11.5-14.5)
--- NOTE | 2024-06-07 11:41 | ED.NAVMDI ---
HPI - Nausea/Vomiting/Diarrhea General Chief complaint: Nausea/Vomiting/Diarrhea Stated complaint: N/V Time Seen by Provider: 06/07/24 11:19 Source: patient and EMS Mode of arrival: EMS Limitations: no limitations History of Present Illness HPI Narrative: 64 years old white male lives alone, history of diabetes hypertension hyperlipidemia COPD hypothyroidism, coronary stents supposed to be on aspirin and Plavix, patient did not take any of his home medication over the last few weeks because of feeling depressed. Patient woke up this morning and felt everything spinning associated with nausea and frequent vomiting. The spinning get worse with any head movement or body movement. Patient denies having similar symptoms. In denies any fever, chills, headache, chest pain, shortness of breath, back pain, abdominal pain or diarrhea. Related Data Home Medications ?Medication ?Instructions ?Recorded ?Confirmed ?Last Taken ?Type fluoxetine 40 mg capsule 40 mg PO DAILY 08/13/22 03/07/24 10/07/22 History brexpiprazole 1 mg tablet (Rexulti) 1 mg PO DAILY 08/24/22 03/07/24 10/07/22 History omega 7-baq-pqd-fish oil 1,000 mg 2 cap PO BID 10/21/23 03/07/24 Unknown History (120 mg-180 mg) capsule (Fish Oil) deutetrabenazine 9 mg tablet 9 mg PO BID 03/07/24 03/07/24 Unknown History (Austedo) Allergies Allergy/AdvReac Type Severity Reaction Status Date / Time No Known Allergies Allergy Verified 06/07/24 10:24 Review of Systems Review of Systems: All systems reviewed & are unremarkable except as noted in HPI and below PMFSH Past Medical History Medical History CAD (coronary artery disease) COPD (chronic obstructive pulmonary disease) Heart disease Heart attack GERD (gastroesophageal reflux disease) Anxiety Lipoma of back Occasional tremors Neuropathy associated with endocrine disorder Hypomagnesemia Anemia JOSH (obstructive sleep apnea) Tinea pedis Hyponatremia Type 2 diabetes mellitus with diabetic neuropathy Hands and feet Depression Recovering alcoholic quit drinking 1987 Hyperlipidemia Hypothyroidism Dx 1974 after JOYCE for hyperthyroidism HTN (hypertension) Dx 2009 Diabetes Dx 2017 Surgical History Surgical History S/P CABG x 1 History of cervical spinal surgery 1998 C4 and C5 laminectomy 2000 C6 and C7 laminectomy H/O inguinal hernia repair Inguinal x2 with mesh S/P CABG x 1 2009 Hx of cholecystectomy Family History Family History Father Diabetes mellitus Heart disease Mother Heart disease Cerebrovascular accident Diabetes mellitus Dementia Unknown Hypertension Cancer Social History Social History Social History: The patient tells me that his ex- is his durable power health care attorney for healthcare. The patient stated that he desires to be a DNR. He has 4 children. Up until April he works for [employer] . The patient stated that he lost his job because he used to many [employer] days due to illness. The patient stated he quit drinking in 1987 he was considered an alcoholic at that time. The patient quit smoking in 2009. Smoking packs per day: 2 Smoking cigarettes per day: 40.0 Years smoked: 35 Smoking pack-years: 70.00 Smoking status: Former smoker Tobacco type: cigarettes Smoking end date: 06/28/09 Alcohol intake: never Alcohol use details: Heavy drinker until 1989. Substance use: never Last use: 2009 Lack of Transportation: YES Lack of Food: Sometimes True Current Housing: I Have Housing Concerned About Future Housing: No Difficulty Paying Gas/Electric Bills: No Difficulty Paying for Meds: No Currently Unemployed: No Education: Associate Degree Difficulty w/ Childcare or Family Care: No Living arrangements: other Additional living arrangements comments: low income apartment Occupation/Education: unemployed Additional occupation/education comments: Lost job in late April,. Gender identity (if verbalized by the patient): Male Spiritual care concerns: No Agree to blood products: Yes Exam Narrative: General appearance: Well-developed, well-nourished, depressed looking Skin: Pale Head: Normocephalic, nontraumatic Eyes: Clear conjunctiva ENT: Oropharynx normal, ears normal, nose normal Neck: Supple, nontender Chest and respiratory: Airway patent, no respiratory distress, no accessory muscle use Heart: Regular rate/rhythm Abdomen: Soft, nontender, no organomegaly, quiet bowel sounds Vascular: Normal peripheral pulses, normal capillary refill. 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 Date: 06/07/24 Time: 13:23 Vital Signs Vital signs: Vital Signs Temperature 36.3 C L 06/07/24 10:04 Pulse Rate 60 06/07/24 10:04 Respiratory Rate 18 06/07/24 10:04 Blood Pressure 180/89 H 06/07/24 10:04 Pulse Oximetry 99 06/07/24 10:04 Oxygen Delivery Room Air 06/07/24 10:04 Temperature 36.3 C L 06/07/24 10:04 Pulse Rate 54 L 06/07/24 13:52 Respiratory Rate 16 06/07/24 13:52 Blood Pressure 159/89 H 06/07/24 13:52 Pulse Oximetry 99 06/07/24 13:52 Oxygen Delivery Room Air 06/07/24 10:04 MDM - Nausea/Vomiting/Diarrhea MDM Narrative Medical decision making narrative: Patient presents with vertigo symptoms Vital signs showing blood pressure 180/89 otherwise within normal limit Physical examination showing pale depressed looking patient otherwise within normal limit Differential diagnosis included benign positional vertigo, dehydration, electrolyte imbalance, noncompliance with medications, urinary tract infection. Blood workup today includes CBC, CMP, troponin showed Urinalysis showed Chest x-ray showed CT head without contrast showed Differential Diagnosis Differential diagnosis: Likely other (As above) Lab Data 06/07/24 10:36 06/07/24 10:36 Labs: Lab Results 06/07/24 06/07/24 06/07/24 Range/Units 10:29 10:36 12:24 WBC 7.0 (4.5-10.0) K/mm3 RBC 4.88 (4.6-6.20) M/mm3 Hgb 15.7 (14.0-18.0) g/dL Hct 41.0 L (42.0-52.0) % MCV 84.0 (80-100) fl MCH 32.2 (26-34) pg MCHC 33.7 (32-36) g/dl RDW 14.3 (11.5-14.5) % Plt Count 193 (150-375) k/mm3 MPV 10.7 H (7.4-10.4) fl Immature Gran % (Auto) 0.4 (0-0.5) % Neut % (Auto) 62.9 (45.5-73.1) % Lymph % (Auto) 28.9 (18.3-44.2) % [place] % (Auto) 4.9 (2.6-8.5) % Eos % (Auto) 1.9 (0-4.4) % Baso % (Auto) 1.0 (0.2-1.2) % Lymph # (Auto) 2.02 (0.9-3.2) K/mm3 [place] # (Auto) 0.3 (0.1-0.6) K/mm3 Eos # (Auto) 0.1 (0-0.3) K/mm3 Baso # (Auto) 0.1 (0.0-0.1) K/mm3 Abs Immat Gran (auto) 0.03 (0.00-0.031) K/mm3 Absolute Neuts (auto) 4.4 (1.3-6.7) K/mm3 Absolute Nucleated RBC 0.000 (0.0-0.012) K/mm3 Band Neutrophils % Not Reportable Nucleated RBC % 0.0 (0.0-0.2) % Platelet Estimate Adequate (Adequate) Anisocytosis 1+ [place]iss[place] Cells 1+ Schistocytes None seen PT 11.5 (11.1-14.7) Seconds INR 0.8 APTT 27.6 (22.3-36.8) Seconds Sodium 131 L (137-145) mmol/L Potassium 4.4 (3.4-5.0) mmol/L Chloride 98 (98-107) mmol/L Carbon Dioxide 18 L (22-30) mmol/L Anion Gap 15 H (4-12) mmol/L BUN 13 D (9-20) mg/dL Creatinine 1.10 (0.7-1.3) mg/dL Estim Creat Clear Calc 75 ml/min Estimated GFR > 60 (59 - ) Glucose 489 H (65-110) mg/dL POC Capillary Glucose > 500 H* (65-105) mg/dl Calcium 9.7 (8.4-10.2) mg/dL Total Bilirubin 0.8 (0.2-1.3) mg/dL AST 32 (17-59) U/L ALT 62 H (6-50) U/L Alkaline Phosphatase 71 (38-126) U/L Troponin I 0.017 (0.000-0.034) ng/mL Total Protein 7.0 (6.3-8.2) g/dL Albumin 4.2 (3.5-5.1) g/dL Lipase 121 (23-300) U/L TSH (0.465-4.680) uIU/mL 06/07/24 06/07/24 Range/Units 12:33 13:44 WBC (4.5-10.0) K/mm3 RBC (4.6-6.20) M/mm3 Hgb (14.0-18.0) g/dL Hct (42.0-52.0) % MCV (80-100) fl MCH (26-34) pg MCHC (32-36) g/dl RDW (11.5-14.5) % Plt Count (150-375) k/mm3 MPV (7.4-10.4) fl Immature Gran % (Auto) (0-0.5) % Neut % (Auto) (45.5-73.1) % Lymph % (Auto) (18.3-44.2) % [place] % (Auto) (2.6-8.5) % Eos % (Auto) (0-4.4) % Baso % (Auto) (0.2-1.2) % Lymph # (Auto) (0.9-3.2) K/mm3 [place] # (Auto) (0.1-0.6) K/mm3 Eos # (Auto) (0-0.3) K/mm3 Baso # (Auto) (0.0-0.1) K/mm3 Abs Immat Gran (auto) (0.00-0.031) K/mm3 Absolute Neuts (auto) (1.3-6.7) K/mm3 Absolute Nucleated RBC (0.0-0.012) K/mm3 Band Neutrophils % Nucleated RBC % (0.0-0.2) % Platelet Estimate (Adequate) Anisocytosis [place] Cells Schistocytes PT (11.1-14.7) Seconds INR APTT (22.3-36.8) Seconds Sodium (137-145) mmol/L Potassium (3.4-5.0) mmol/L Chloride (98-107) mmol/L Carbon Dioxide (22-30) mmol/L Anion Gap (4-12) mmol/L BUN (9-20) mg/dL Creatinine (0.7-1.3) mg/dL Estim Creat Clear Calc ml/min Estimated GFR (59 - ) Glucose (65-110) mg/dL POC Capillary Glucose 426 H (65-105) mg/dl Calcium (8.4-10.2) mg/dL Total Bilirubin (0.2-1.3) mg/dL AST (17-59) U/L ALT (6-50) U/L Alkaline Phosphatase (38-126) U/L Troponin I (0.000-0.034) ng/mL Total Protein (6.3-8.2) g/dL Albumin (3.5-5.1) g/dL Lipase (23-300) U/L TSH > 100.000 H (0.465-4.680) uIU/mL ABG Data ABG results: 06/07/24 11:53 VBG pH 7.289 L VBG pCO2 55.9 H VBG pO2 < 27.0 L VBG HCO3 26.2 O2 Delivery Device Room air O2 Liters/Min Not Reportable FiO2 21 Discharge Plan Discharge Patient Language: Kazakh Prescriptions: No Action fluoxetine 40 mg capsule 40 mg PO DAILY Rexulti 1 mg tablet 1 mg PO DAILY primidone 250 mg tablet 250 mg PO DAILY Qty: 90 3RF losartan 25 mg tablet 25 mg PO DAILY Qty: 90 3RF metoprolol succinate 25 mg tablet extended release 24 hr 12.5 mg PO DAILY Qty: 90 3RF Mounjaro 10 mg/0.5 mL pen injector See Rx Instructions .ROUTE .COMPLEX Qty: 6 1RF Dose Instruction: INJECT 10 MG SUBCUTANEOUSLY ONCE A WEEK Rx Instructions: INJECT 10 MG SUBCUTANEOUSLY ONCE A WEEK insulin lispro [Humalog KwikPen Insulin] 100 unit/mL insulin pen 15 unit subcut TIDWMEAL Qty: 5 5RF Austedo 9 mg tablet 9 mg PO BID nitroglycerin 0.4 mg tablet, sublingual 0.4 mg sublingual Q5M PRN (Reason: Chest Pain) Qty: 100 0RF Rx Instructions: do not exceed 3 doses per episode omega 9-nhu-rpi-fish oil [Fish Oil] 1,000 mg (120 mg-180 mg) capsule 2 cap PO BID aspirin 81 mg tablet,chewable 81 mg PO DAILY Qty: 90 3RF metformin 1,000 mg tablet See Rx Instructions .ROUTE .COMPLEX Qty: 180 0RF Dose Instruction: Take 1 tablet by mouth twice daily Rx Instructions: Take 1 tablet by mouth twice daily levothyroxine 25 mcg tablet See Rx Instructions .ROUTE .COMPLEX Qty: 90 0RF Dose Instruction: Take 1 tablet by mouth once daily Rx Instructions: Take 1 tablet by mouth once daily omeprazole 40 mg capsule,delayed release(DR/EC) See Rx Instructions .ROUTE .COMPLEX Qty: 90 0RF Dose Instruction: Take 1 capsule by mouth once daily Rx Instructions: Take 1 capsule by mouth once daily gabapentin 800 mg tablet 800 mg PO TID Qty: 270 0RF (DME) pen needle, diabetic 31 gauge x 5/16 needle See Rx Instructions .ROUTE .COMPLEX Qty: 100 3RF Dose Instruction: USE TWICE DAILY WITH LEVIMIR Rx Instructions: USE TWICE DAILY WITH LEVIMIR insulin glargine [Lantus Solostar U-100 Insulin] 100 unit/mL (3 mL) insulin pen 25 unit subcut BID Qty: 15 3RF rosuvastatin 40 mg tablet See Rx Instructions .ROUTE .COMPLEX Qty: 90 0RF Dose Instruction: Take 1 tablet by mouth once daily Rx Instructions: Take 1 tablet by mouth once daily torsemide 20 mg tablet See Rx Instructions .ROUTE .COMPLEX Qty: 90 0RF Dose Instruction: Take 1 tablet by mouth once daily Rx Instructions: Take 1 tablet by mouth once daily levothyroxine 200 mcg tablet See Rx Instructions .ROUTE .COMPLEX Qty: 90 0RF Dose Instruction: TAKE 1 TABLET BY MOUTH ONCE DAILY. TAKE WITH 25MCG TO EQUAL 225MCG DAILY Rx Instructions: TAKE 1 TABLET BY MOUTH ONCE DAILY. TAKE WITH 25MCG TO EQUAL 225MCG DAILY Follow-up/Referrals: Michelle Drake APRN [Primary Care Provider] -
[2024-06-07 11:57] LABS: Fractional Inspired Oxygen 21 %; HCO3 VBG 26.2 mEq/l (24.0-30.0); PCO2 VBG 55.9 mmHg (42.0-48.0); pH VBG 7.289 (7.300-7.400)
[2024-06-07 11:58] LABS: Device ROOM AIR; PO2 VBG < 27.0 mmHg (35.0-45.0)
[2024-06-07] MEDS: SODIUM CHLORIDE 0.9% IV 1,000 ML 999 ML IV CONT ×2 (12:04→12:05)
[2024-06-07 12:08] LABS: Mean Corpuscular HGB Conc 33.7 g/dl (32-36)
[2024-06-07 12:09] LABS: Alanine Aminotransferase 62 U/L (6-50); Albumin Level 4.2 g/dL (3.5-5.1); Alkaline Phosphatase 71 U/L (38-126); Anion Gap 15 mmol/L (4-12); Aspartate Amino Transferase 32 U/L (17-59); Bilirubin,Total 0.8 mg/dL (0.2-1.3); Blood Urea Nitrogen 13 mg/dL (9-20); Calcium 9.7 mg/dL (8.4-10.2); Carbon Dioxide 18 mmol/L (22-30); Chloride 98 mmol/L (98-107); Estimated CRCL calculation 75 ml/min; Estimated Glomerular Filt Rate > 60; Glucose 489 mg/dL (65-110); Lipase 121 U/L (23-300); Potassium 4.4 mmol/L (3.4-5.0)
[2024-06-07 12:10] LABS: Anisocytosis 1+; Burr Cells 1+; Platelet Estimate Adequate (Adequate); Schistocytes None Seen
[2024-06-07 12:11] LABS: Sodium 131 mmol/L (137-145)
[2024-06-07] MEDS: ONDANSETRON INJ 4 MG/2 ML VIAL 8 MG IV PUSH (12:23)
--- NOTE | 2024-06-07 12:25 | PC.NURSE ---
Dr. Murphy at bedside speaking with pt. and pt. brother.
--- OUTSIDE RECORDS SUMMARY | 2024-06-07 13:03 | XMS_ITS ---
Author Organization [facility] [employer] [facility] Address [address] [place] [address] [address] [facility] [address] [place] [address] Care Team Providers Care Textile Dyer Name Role Phone Michelle Drake APRN Primary Care Provider Bhavya Sin Unavailable [phone] Bekah Hurtado Unavailable [phone] REASON FOR VISIT bekah sick, left vm to r/s Social History Sex Assigned At : Social History Observation Description Sex Assigned At Male Encounters Encounter Location Date Provider Diagnosis [facility] [place] [address] [facility] [address] [place] [address] 05/01/2024 Bekah Hurtado Plan Of Treatment Next Appt Details Provider Name:Bhavya Lopez , 07/21/2024 01:00:00 PM, [facility], [facility] [address], [place], [address], Progress Notes * JACQUELIN CONRAD DDOB:[birth year] (64 yo M)Acc No.[id number]:05/01/2024 Patient: JACQUELIN DIOR Provider: Marvin HURTADO LCSW :1960 A ge:64 Y S ex:Male Date:05/01/2024 Phone: Address:[address], [address], [place], [place] Pcp:Michelle Drake APRN Data: * Chief Complaints: * 1 . Bekah sick, left vm to r/s. Assessment: Plan: * Treatment: * Billing Information: * Visit Code: * Procedure Codes: * Electronic signature of Georgina Hurtado LCSW on 06/07/2024 at 01:02 PM CDT Sign off status: Pending Signatures: No Ad Hoc Signature Added * Provider: Marvin HURTADO LCSW Date: 0 05/01/2024 Generated for Amrit hernandez/Karin/Shaina on: 0 06/07/2024 01:02 PM CDT
--- OUTSIDE RECORDS SUMMARY | 2024-06-07 13:03 | XMS_ITS | CONTINUITY OF CARE DOCUMENT ---
Author Name zuleika to Address Unknown Organization [facility] Address [address] [place] [address] Phone [phone] Care Team Providers Care Order Entry Clerk Name Role Phone Anuradha CROCKER, Dolores Pompa Unavailable [phone] SAGE EVANS MD Unavailable [phone] LATIA CROCKER, CORAL Unavailable PROBLEMS Condition Status Date Provider Notes Shortness of breath (SOB) active Fahad Vaughan Family History Coronary Hear t Disease male < 55: active ? Tripp Plurad DM - type 2 active Tripp Plurad Hypothyroidism active Tripp Plurad Hyperlipidemia active Tripp Plurad HTN essential active Tripp Plurad Anxiety active Tripp Plurad GERD active Tripp Plurad Hx of tobacco abuse active Tripp Plurad CAD active Tripp Plurad Snoring active Tripp Plurad Abnormal cardiovascular stress test active Tripp Plurad Palpitations active Dolores Ling MD Gallstones active Dolores Ling MD ENCOUNTERS Date Type Provider Location Encounter Diag nosis - In-person encounter Office Visit Dolores Ling MD [facility] [place] - In-person encounter Office Visit Dolores Ling MD [facility] - In-person encounter Office Visit Dolores Ling MD [facility] Palpitations - In-person encounter Office Visit Dolores Ling MD [facility] Abnormal cardiovascular stress test - In-person encounter Office Visit Dolores Ling MD [facility] - In-person encounter Office Visit Dolores Ling MD [facility] Family History Coronary Heart Disease male < 55:DM - type 2HypothyroidismHyperlipidemi aHTN essentialAnxietyGERDHx of tobacco abuseCADSnoring VITAL SIGNS Date Observation Value Provider Body Mass Index (Ratio) 39.02 kg/m2 Lewis Ling MD blood pressure, cuff size regular Cy thom Echevarria blood pressure, diastolic 98 mm[Hg] Cy thom Echevarria blood pressure, systolic 160 mm[Hg] Marine shalapedro cEhevarria oxygen saturation, oximetry 97 % Renita Echevarria [...] /min Carol Mack height E&M 70 [in_i] [facility] weight E&M 270 [lb_av] [facility] ALLERGIES No Known Drug Allergies RESULTS Date Observation Value Provider Reference Range Interpretation Location prothrombin time (patient) 10.3 s [facility] 9.1-12.0 international normalized ratio (INR) 1.0 [facility] 0.8-1.2 calcium, serum 9.8 mg/dL [facility] 8.7-10.2 carbon dioxide, venous blood 20 mmol/L [facility] 20-29 chloride, serum 104 mmol/L [facility] 96-106 potassium, serum 4.9 mmol/L [facility] 3.5-5.2 sodium, serum 139 mmol/L [facility] 741-122 5971/12/ 15 urea nitrogen/creatinine ratio, serum 25 [facility] [...] Not Estab. platelet count 216 X10E3/UL [facility] 014-888 1080/12/ 15 red blood cell distribution width 13.2 [...] 0-149 High cholesterol, serum 145 mg/dL [facility] 464-744 2752/12/ 05 alanine aminotransferase (SGPT), serum 23 1/L [...] [facility] 3.5-5.2 sodium, serum 139 mmol/L [facility] 104-986 2379/12/ 05 urea nitrogen/creatinine ratio, serum 21 [facility] [...] Not Estab. platelet count 232 X10E3/UL [facility] 958-774 8426/09/ 22 red blood cell distribution width 14.0 [...] [facility] 3.5-5.2 sodium, serum 135 mmol/L [facility] 208-580 6139/09/ 21 urea nitrogen/creatinine ratio, serum 25 [facility] 9-20 High eGFR if 70 mL/min/{1. 73_m2} [facility] >59 eGFR if not 61 mL/min/{1. 73_m2} [facility] >59 creatinine, serum 1.30 mg/dL [facility] 0.76-1.27 High urea nitrogen, blood 33 mg/dL [facility] 6-24 High blood glucose, random 321 mg/dL [facility] 65-99 High HISTORY OF MEDICATION USE Medication Status Instructions Dates Provider Indications Com [facility] [place] MIX 70/30 FLEXPEN SUSPENSION PEN-INJECTOR [...] Payer name Policy type / Coverage type [place] green party ID [facility] [id number] ADVANCE DIRECTIVES Name Date DISCUSSED - NO [...] Release (Aspirin) ..... 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 LCX has 50-60% stenosis [...] Cardiology: O rders: 9 9215 HIGH Complex (CPT-94266) C oronary Stent - [facility] (CPT-70902) Dolores Ling MD Cardiology:Reviewed cath with him. Potentially stentable LCX. May need to do ostial L vein LMT or otherwise plan for 2 stents to the LCX. He is able to delay his gallbladder surgery for [address] Evans for that. Will schedule him for LHC and stent at [facility]. 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 LCX has 50-60% stenosis beyond a tight LMT. Uncontrolled chol, elevated TSH need management. Will start him on Imdur 30, D/C Lopressor as he became profoundly bradycardic with it. Did not tolerate HCTZ due to elevated Cr. Dolroes Ling MD Cardiology:Start fis h oil supplements, 2G per day. Currently on phenofibrate and Zocor. Pt. has been instructed not to consume any carbohydrates at all: no potatoes, bread, or pasta. Dolores Ling MD Cardiology New Patie nt:Will get home sleep study. O rders: S leep Study Home (CPT-32605) Tripp Rene Cardiology New Patie nt:Added HCTZ [...] for perfusion. O rders: C omplete Echo (CPT-59171) C arotid Duplex Bilateral (CPT-83154) S TR - Nuclear (CPT-59827) F VC - 11375 (69804) F RC - 50896 (92281) D LCO - 32207 (94696) Dolores Ling MD Cardiology New Patie nt:Check [...] LIC PANEL, W/EGFR LIPID PANEL DLCO - 08789 FRC - 21360 FVC - 04427 STR - Nuclear Carotid Duplex Bilat eral [...] d FVC / MVV with bronchodilator - 23975 Dolores Ling MD completed BLOOD COUNT HEMOGLOBIN Dolores Ling MD completed FRC - 12260 Dolores Lign MD comp leted SpO2 w/o 6min walk/titration Dolores Ling MD completed DLCO - 92031 Dolores Ling MD com pleted EKG Dolores Ling MD compl eted
[2024-06-07 13:17] LABS: INR 0.8; Prothrombin Time 11.5 Seconds (11.1-14.7)
[2024-06-07 13:18] LABS: Partial Thromboplastin Time 27.6 Seconds (22.3-36.8)
[2024-06-07] MEDS: MECLIZINE HCL 25 MG TABLET PO (13:41)
--- NOTE | 2024-06-07 13:45 | PC.NURSE ---
Pt. refused valium because I used to be an addict.
[2024-06-07] MEDS: INSULIN HUMAN REGULAR (*BKC) 100 UNITS/ML 16.5 UNITS IV PUSH (13:48)
--- NOTE | 2024-06-07 13:49 | WPDCNINT ---
Assessment and Plan Assessment and plan (1) DKA (diabetic ketoacidosis): Code(s): E11.10 - Type 2 diabetes mellitus with ketoacidosis without coma Status: Acute Assessment and Plan: Patient admitted with DKA secondary to noncompliance. Blood glucose 49 anion gap 15 and carbon dioxide 18 Patient is being given IVF bolus and will be started started on infusion Patient is now getting insulin push and will check a BMP if patient still has anion gap then will start Insulin infusion with Q1H glucose monitoring Serial labs ordered Replace electrolytes as needed P.r.n. Luh npo (2) Depression: Qualifiers: Depression Type: unspecified Qualified Code(s): F32.9 - Major depressive disorder, single episode, unspecified Code(s): F32.9 - Major depressive disorder, single episode, unspecified Status: Acute Assessment and Plan: Patient has history of depression now with suicidal ideation Sitter at bedside for one-to-one observation Suicide precautions Resume home depression meds once clarified (3) CAD (coronary artery disease): Code(s): I25.10 - Atherosclerotic heart disease of [place] coronary artery without angina pectoris Status: Acute Assessment and Plan: History of coronary disease status post stent Continue aspirin beta-maulik statin and losartan (4) Hyperlipidemia: Qualifiers: Hyperlipidemia type: unspecified Qualified Code(s): E78.5 - Hyperlipidemia, unspecified Code(s): E78.5 - Hyperlipidemia, unspecified Status: Acute Assessment and Plan: Continue statin (5) Hypothyroidism: Code(s): E03.9 - Hypothyroidism, unspecified Status: Acute Assessment and Plan: Continue levothyroxine check TSH (6) JOSH (obstructive sleep apnea): Code(s): G47.33 - Obstructive sleep apnea (adult) (pediatric) Status: Acute Assessment and Plan: CPAP (7) Diabetic neuropathy: Code(s): E11.40 - Type 2 diabetes mellitus with diabetic neuropathy, unspecified Status: Acute Assessment and Plan: Continue Neurontin (8) Suicide ideation: Code(s): R45.851 - Suicidal ideations Status: Acute Assessment and Plan: One-to-one sitter Suicide precaution Plan DVT prophylaxis -Lovenox Stress ulcer prophylaxis -PPI Nutrition - npo Code Status - Full Code I spoke to and updated patient's brother who was sitting at bedside. I answered all their questions. Total Critical Care Time - 35 minutes Due to a high probability of clinically significant, life threatening deterioration, the patient required my highest level of preparedness to intervene emergently and I personally spent this critical care time directly and personally managing the patient. This critical care time included obtaining a history; examining the patient; pulse oximetry; ordering and review of studies; arranging urgent treatment with development of a management plan; evaluation of patient's response to treatment; frequent reassessment; and discussions with other providers. It was exclusive of separately billable procedures and treating other patients and teaching time. Please see Assessment and Plan section and the rest of the note for further information on patient assessment and treatment Credit Review Manager Consult Note Consult date: 06/07/24 Reason for consult: DKA HPI: Leeroy Schaefer is a 64 year old male with past medical history of coronary disease, depression, diabetes on insulin, hyperlipidemia who presented to ER this morning with chief complaint of nausea and vomiting. Patient has history of depression and states that he felt overwhelmed with his medication and insulin for last 1 month and feels that there was no benefit from taking all these medications and stop taking them. He states that he has not taking insulin for last 1 month. He states he takes Lantus 25 units twice a day and 15 units of once per with each meal. When I asked him if he was trying to hurt himself or commit suicide he states that 'that thought did cross my mind'. He states that he did attempt suicide when he was 16 years old by cutting his wrist. He is currently disabled and lives alone. He is not but does have children but is not in contact them. He states that this morning he started having nausea and vomiting vomiting use mostly contained bile with no blood in it. He denies any constipation diarrhea hematochezia melena. He denies any chest pain fever or cough. He states he has chronic shortness of breath because he is not very active and mostly lays in chair or bed. He does feel depressed. All other systems were reviewed and were negative Workup in the ER showed sodium 131 anion gap 15 carbon dioxide 18 blood glucose 489 troponin was negative lipase [address] was neck and chest x-ray was unremarkable except chronic mild left basilar atelectasis versus scarring Patient is currently receiving his fluid bolus and has only received half of it. He also had insulin bolus ordered but he has not received it yet. Review of Systems Review of Systems: All systems reviewed & are unremarkable except as noted in HPI and below (HPI) [facility] Past Medical History Medical History CAD (coronary artery disease) COPD (chronic obstructive pulmonary disease) Heart disease Heart attack GERD (gastroesophageal reflux disease) Anxiety Lipoma of back Occasional tremors Neuropathy associated with endocrine disorder Hypomagnesemia Anemia JOSH (obstructive sleep apnea) Tinea pedis Hyponatremia Type 2 diabetes mellitus with diabetic neuropathy Hands and feet Depression Recovering alcoholic quit drinking 1987 Hyperlipidemia Hypothyroidism Dx 1974 after JOYCE for hyperthyroidism HTN (hypertension) Dx 2010 Diabetes Dx 2017 Surgical History Surgical History S/P CABG x 1 History of cervical spinal surgery 1998 C4 and C5 laminectomy 2000 C6 and C7 laminectomy H/O inguinal hernia repair Inguinal x2 with mesh S/P CABG x 1 2009 Hx of cholecystectomy Family History Family History Father Diabetes mellitus Heart disease Mother Heart disease Cerebrovascular accident Diabetes mellitus Dementia Unknown Hypertension Cancer Social History Social History Social History: The patient tells me that 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 The patient stated that he desires to be a DNR. He has 4 children. Up until April he works for [employer] . The patient stated that he lost his job because he used to many FMLA days due to illness. The patient stated he quit drinking in 1987 he was considered an alcoholic at that time. The patient quit smoking in 2009. Smoking packs per day: 2 Smoking cigarettes per day: 40.0 Years smoked: 35 Smoking pack-years: 70.00 Smoking status: Former smoker Tobacco type: cigarettes Smoking end date: 06/28/09 Alcohol intake: never Alcohol use details: Heavy drinker until 1989. Substance use: never Last use: 2009 Lack of Transportation: YES Lack of Food: Sometimes True Current Housing: I Have Housing Concerned About Future Housing: No Difficulty Paying Gas/Electric Bills: No Difficulty Paying for Meds: No Currently Unemployed: No Education: Associate Degree Difficulty w/ Childcare or Family Care: No Living arrangements: other Additional living arrangements comments: low income apartment Occupation/Education: unemployed Additional occupation/education comments: Lost job in late April,. Gender identity (if verbalized by the patient): Male Spiritual care concerns: No Agree to blood products: Yes Meds Home Medications and Allergies Home Medications ?Medication ?Instructions ?Recorded ?Confirmed ?Type fluoxetine 40 mg capsule 40 mg PO DAILY 08/13/22 03/07/24 History brexpiprazole 1 mg tablet (Rexulti) 1 mg PO DAILY 08/24/22 03/07/24 History aspirin 81 mg chewable tablet 81 mg PO DAILY #90 tabs 11/05/22 03/07/24 Rx losartan 25 mg tablet 25 mg PO DAILY #90 tabs 07/14/23 03/07/24 Rx metoprolol succinate 25 mg 12.5 mg (1/2 x 25 mg) PO DAILY #90 07/14/23 03/07/24 Rx tablet,extended release 24 hr tabs primidone 250 mg tablet 250 mg PO DAILY #90 tabs 07/14/23 03/07/24 Rx nitroglycerin 0.4 mg sublingual 0.4 mg sublingual Q5M PRN Chest 10/11/23 03/07/24 Rx tablet Pain #100 tabs levothyroxine 25 mcg tablet See Rx Instructions .Route 10/18/23 03/07/24 Rx .COMPLEX #90 tabs metformin 1,000 mg tablet See Rx Instructions .Route 10/18/23 03/07/24 Rx .COMPLEX #180 tabs omeprazole 40 mg capsule,delayed See Rx Instructions .Route 10/18/23 03/07/24 Rx release .COMPLEX #90 caps omega 4-mib-znr-fish oil 1,000 mg 2 cap PO BID 10/21/23 03/07/24 History (120 mg-180 mg) capsule (Fish Oil) gabapentin 800 mg tablet 800 mg PO TID #270 tabs 11/16/23 03/07/24 Rx insulin glargine 100 unit/mL (3 25 unit (0.25 mL) subcut BID #15 mL 02/21/24 03/07/24 Rx mL) subcutaneous pen (Lantus Solostar U-100 Insulin) pen needle, diabetic 31 gauge x #100 ea 02/21/24 03/07/24 Rx 07/14 deutetrabenazine 9 mg tablet 9 mg PO BID 03/07/24 03/07/24 History (Austedo) rosuvastatin 40 mg tablet See Rx Instructions .Route 03/22/24 Rx .COMPLEX #90 tabs torsemide 20 mg tablet See Rx Instructions .Route 03/22/24 Rx .COMPLEX #90 tabs insulin lispro 100 unit/mL 15 unit (0.15 mL) subcut TIDWMEAL 04/13/24 04/13/24 Rx subcutaneous pen (Humalog KwikPen #5 pens (U-100) Insulin) tirzepatide 10 mg/0.5 mL See Rx Instructions .Route 04/13/24 04/13/24 Rx subcutaneous pen injector .COMPLEX #6 mL (Mounjaro) levothyroxine 200 mcg tablet See Rx Instructions .Route 04/25/24 Rx .COMPLEX #90 tabs Allergies Allergy/AdvReac Type Severity Reaction Status Date / Time No Known Allergies Allergy Verified 06/07/24 10:24 Vital Signs Vital Signs - 24 hr 06/07/24 10:04 06/07/24 12:02 Temperature 36.3 C L Pulse Rate 60 57 L Respiratory Rate 18 16 Blood Pressure 180/89 H 179/92 H Pulse Oximetry 99 99 Oxygen Delivery Room Air Exam Narrative: General: Pt is alert awake and in NAD Lungs/Chest: Trachea central Clear BS B/L, No crackles or wheezing. Cardiac: RRR. Normal S1 S2. No murmurs Circulation: Pedal pulses are intact and symmetrical. Abdomen: Normal bowel sounds. Obese. Soft. NT. ND. Extremities: No clubbing, cyanosis or edema. Warm : Johnson in place Neurologic: Follows commands. Moves all 4 extremities PERRL Skin: No Rash Psych: Normal speech, flat affect, admits to suicide ideation and also a suicide attempt when he was 16 years old Results Labs 06/07/24 10:36 06/07/24 10:36 Labs: Impressions Chest X-Ray 06/07/24 11:11 IMPRESSION: 1. Chronic mild left basilar atelectasis/scarring. No other acute cardiopulmonary disease. Head CT 06/07/24 12:48 IMPRESSION: No evidence for acute intracranial hemorrhage or calvarial fracture. Short CBC 06/07/24 Range/Units 10:36 WBC 7.0 (4.5-10.0) K/mm3 Hgb 15.7 (14.0-18.0) g/dL Hct 41.0 L (42.0-52.0) % Plt Count 193 (150-375) k/mm3 BMP 06/07/24 10:36 Sodium 131 L Potassium 4.4 Chloride 98 Carbon Dioxide 18 L BUN 13 D Creatinine 1.10 Glucose 489 H Calcium 9.7 Liver Function 06/07/24 Range/Units 10:36 Total Bilirubin 0.8 (0.2-1.3) mg/dL AST 32 (17-59) U/L ALT 62 H (6-50) U/L Alkaline Phosphatase 71 (38-126) U/L Albumin 4.2 (3.5-5.1) g/dL Quality VTE Prophylaxis VTE prophylaxis: pharmacologic ordered Hospitalist MIPS Advance Care Plan I have confirmed that the patient's Advanced Care Plan is present, code status is documented, or surrogate decision maker is listed in patient medical record.: Yes Medication Reconciliation I have utilized all available resources to obtain, update and review the patients current medications (includes all prescriptions, OTC, herbals, cannabis, and nutritional supplements).: Yes
[2024-06-07 13:50] LABS: Troponin I 0.017 ng/mL (0.000-0.034)
[2024-06-07 13:54] LABS: Glucose Point of Care 426 mg/dl (65-105)
[2024-06-07 14:00] LABS: Thyroid Stimulating Hormone > 100.000 uIU/mL (0.465-4.680)
[2024-06-07 14:26] LABS: Add Urine Microscopic? YES; Appearance Urine Clear (Clear); Bacteria Urine None Seen /hpf; Bilirubin Urine Negative (Negative); Blood Urine Negative (Negative); Color Urine Yellow (Yellow); Glucose Urine UA 3+ mg/dL (Negative); Ketones Urine Negative (Negative); Leukocyte Esterase Ur Negative LEU/UL (Negative); Nitrate Urine Negative (Negative); Non Pathogenic Casts 0-2; Protein Urine 1+ mg/dL (Negative); RBC Urine 0-2 /hpf (0-2); Specific Grav Ur 1.039 (1.001-1.035); Squamous Epithelial Cell Urine None Seen /hpf (Few); Urobilinogen Urine 0.2 mg/dL (<2.0); WBC Urine 0-5 /hpf (0-3); pH Urine 5.5 (5.0-9.0)
--- NOTE | 2024-06-07 14:37 | PC.NURSE ---
Sandip RN and Izzy RN are unable to obtain 2nd IV access in order to initiate insulin drip. Initial bolus still infusing in R. A.C. Pt. continuously bend his arm occluding bolus. Pt. reminded to keep his arm straight. Reese with vascular access at bedside attempting peripheral IV.
[2024-06-07 15:02] LABS: Glucose Point of Care 350 mg/dl (65-105)
[2024-06-07] MEDS: INSULIN HUMAN REGULAR (*BKC) 100 UNITS in SODIUM CHLORIDE 0.9% IV 99 ML 12 UNITS IV CONT (15:03)
--- NOTE | 2024-06-07 15:20 | P.HP_ITS ---
H&P: HPI History of Present Illness Date/Time: 06/07/24 15:20 Chief Complaint: Nausea and vomiting. Narrative: This is a very pleasant 64-year-old male with coronary artery disease with history of stents and 1 vessel bypass in 2009, insulin-dependent type 2 diabetes mellitus, diabetic peripheral neuropathy, hypertension, hyperlipidemia, hypothyroidism, obstructive sleep apnea, chronic obstructive pulmonary disease, gastroesophageal reflux disease, hyperthyroidism status post radioactive iodine ablation, postablative hypothyroidism, depression, anxiety, and posttraumatic stress disorder who presented to the emergency department via EMS from home for evaluation of nausea and vomiting. He was not feeling well when he got up, mainly with nausea, and he has had multiple episodes of nonbloody and nonbilious emesis since that time. He also endorses mild shortness of breath but that sounds to be more of a chronic issue as he admits that he is sedentary and spends most of his time in bed or in a chair. He is overwhelmed with his medications and insulin so he stopped taking them about a month ago. He does not feel that there is any benefits to taking his medications and with further questioning he does admit to longstanding depression and admits to having occasional thoughts of suicide cross his mind though he has no plan and he is not currently having these thoughts. At the age of 16 he attempted suicide by cutting his wrist and had no further attempts. He is disabled and lives alone. He is not but does have children although they are not in contact with him. He is not able to do the things that he used to like to do such as go to the gym, fish, and put together puzzles as his mobility is limited due to severe diabetic peripheral neuropathy. He denies fever, cold and flu symptoms, chest pain, pleuritic pain, cough, epigastric and abdominal pain, melena, hematochezia, hematemesis, and dysuria. In the ED: Vital signs on arrival include a temperature 97.4?, blood pressure 180/89, pulse 60, respiratory rate 18, SpO2 99% on room air. Labs are significant for a sodium of 131, carbon dioxide 18, anion gap 15, BUN 13, creatinine 1.10, glucose 489, TSH greater than 100. VBG showed a pH of 7.289, pCO2 55.9, HC03 26.2. Urinalysis was negative for ketones with 3+ glucose. Head CT and chest x-ray were without acute findings. He was started on IV fluids and an insulin drip for presumed mild diabetic ketoacidosis and he is being admitted in this setting. Review of Systems Review of Systems: 12 systems were reviewed and are negativ e except for as per HPI. [facility] Past Medical History Medical History (Updated 06/07/24 @ 22:37 by Anna Lo PA-C) Posttraumatic stress disorder Kidney stones Pancreatitis Diverticulitis Obstructive sleep apnea Chronic obstructive pulmonary disease Gastroesophageal reflux disease Hyperthyroidism status post radioactive iodine and lesion in 1974 Postablative hypothyroidism Diabetic peripheral neuropathy Insulin dependent type 2 diabetes mellitus Coronary artery disease Hypertension Anxiety Depression Recovering alcoholic quit drinking in 1987 Hyperlipidemia Surgical History Surgical History (Updated 06/07/24 @ 15:28 by Anna Lo PA-C) History of coronary artery stent placement History of cardiac catheterization History of inguinal hernia repair History of cholecystectomy History of coronary artery bypass graft x 1 (11/2009) History of cervical spinal surgery C4-C5 C6-C7 laminectomy and fusion Family History Family History Father Diabetes mellitus Heart disease Mother Heart disease Cerebrovascular accident Diabetes mellitus Dementia Unknown Hypertension Cancer Social History Social History (Updated 06/07/24 @ 15:41 by Anna Lo PA-C) Social History: Surrogate medical decision maker: Brandon Schaefer, brother ([phone]). Code status: Full code. Smoking packs per day: 2 Smoking cigarettes per day: 40.0 Years smoked: 35 Smoking pack-years: 70.00 Smoking status: Former smoker Tobacco type: cigarettes Second hand tobacco smoke exposure: No Smoking end date: 06/28/09 Alcohol intake: former Alcohol use details: Heavy drinker until 1989. Substance use: never Last use: 2009 Do You Feel Safe in your Home?: Yes Lack of Transportation: YES Lack of Food: Sometimes True Current Housing: I Have Housing Concerned About Future Housing: No Difficulty Paying Gas/Electric Bills: No Difficulty Paying for Meds: No Currently Unemployed: No Education: Associate Degree Difficulty w/ Childcare or Family Care: No Living arrangements: other Additional living arrangements comments: low income apartment Occupation/Education: unemployed Additional occupation/education comments: Lost job in late April,. Spiritual care concerns: No Agree to blood products: Yes Meds Home Medications and Allergies Home Medications ?Medication ?Instructions ?Recorded ?Confirmed ?Type fluoxetine 40 mg capsule 40 mg PO DAILY 08/13/22 06/07/24 History brexpiprazole 1 mg tablet (Rexulti) 1 mg PO DAILY 08/24/22 06/07/24 History aspirin 81 mg chewable tablet 81 mg PO DAILY #90 tabs 11/05/22 06/07/24 Rx losartan 25 mg tablet 25 mg PO DAILY #90 tabs 07/14/23 06/07/24 Rx metoprolol succinate 25 mg 12.5 mg (1/2 x 25 mg) PO DAILY #90 07/14/23 06/07/24 Rx tablet,extended release 24 hr tabs primidone 250 mg tablet 250 mg PO DAILY #90 tabs 07/14/23 06/07/24 Rx nitroglycerin 0.4 mg sublingual 0.4 mg sublingual Q5M PRN Chest 10/11/23 06/07/24 Rx tablet Pain #100 tabs levothyroxine 25 mcg tablet See Rx Instructions .Route 10/18/23 06/07/24 Rx .COMPLEX #90 tabs metformin 1,000 mg tablet See Rx Instructions .Route 10/18/23 06/07/24 Rx .COMPLEX #180 tabs omeprazole 40 mg capsule,delayed See Rx Instructions .Route 10/18/23 06/07/24 Rx release .COMPLEX #90 caps omega 7-oes-zne-fish oil 1,000 mg 2 cap PO BID 10/21/23 06/07/24 History (120 mg-180 mg) capsule (Fish Oil) gabapentin 800 mg tablet 800 mg PO TID #270 tabs 11/16/23 06/07/24 Rx insulin glargine 100 unit/mL (3 25 unit (0.25 mL) subcut BID #15 mL 02/21/24 06/07/24 Rx mL) subcutaneous pen (Lantus Solostar U-100 Insulin) pen needle, diabetic 31 gauge x #100 ea 02/21/24 03/07/24 Rx 5/16 deutetrabenazine 9 mg tablet 9 mg PO BID 03/07/24 06/07/24 History (Austedo) rosuvastatin 40 mg tablet See Rx Instructions .Route 03/22/24 06/07/24 Rx .COMPLEX #90 tabs torsemide 20 mg tablet See Rx Instructions .Route 03/22/24 06/07/24 Rx .COMPLEX #90 tabs insulin lispro 100 unit/mL 15 unit (0.15 mL) subcut TIDWMEAL 04/13/24 06/07/24 Rx subcutaneous pen (Humalog KwikPen #5 pens (U-100) Insulin) tirzepatide 10 mg/0.5 mL See Rx Instructions .Route 04/13/24 06/07/24 Rx subcutaneous pen injector .COMPLEX #6 mL (Mounjaro) levothyroxine 200 mcg tablet See Rx Instructions .Route 04/25/24 06/07/24 Rx .COMPLEX #90 tabs ezetimibe 10 mg tablet 10 mg PO DAILY 06/07/24 06/07/24 History Allergies Allergy/AdvReac Type Severity Reaction Status Date / Time No Known Allergies Allergy Verified 06/07/24 10:24 Vital Signs Vital Signs - 24 hr 06/07/24 10:04 06/07/24 12:02 06/07/24 13:52 Temperature 97.4 F L Pulse Rate 60 57 L 54 L Respiratory Rate 18 16 16 Blood Pressure 180/89 H 179/92 H 159/89 H Pulse Oximetry 99 99 99 Oxygen Delivery Room Air 06/07/24 14:52 Temperature Pulse Rate 54 L Respiratory Rate 16 Blood Pressure 160/87 H Pulse Oximetry 100 Oxygen Delivery Exam Narrative: General: Well-developed, nontoxic-appearing gentleman sitting up in bed in no ac [place] distress. Weight: 1 kg for a BMI: 31.9. HEENT: PERRL, EOMI. Sclera anicteric. Tacky mucous membranes. Neck: Supple. Respiratory: Lungs are clear to auscultation bilaterally. Cardiovascular: Regular rate and rhythm with S1-S2. Gastrointestinal: Abdomen is nontender with positive bowel sounds. Bladder feels distended. Skin: Warm and dry. No rash or lesions on limited exam. Extremities: No cyanosis, clubbing, or edema. Radial and pedal pulses intact. Neurological: Alert. Cranial nerves 2-12 are grossly intact. No gross focal deficits to casual conversation. Psychiatric: Pleasant and cooperative with depressed mood. He is a bit despondent and is hard on himself, frequently stating that he has been a disappointment in his life. Good eye contact. H&P: Results Labs Labs: Short CBC 06/07/24 Range/Units 10:36 WBC 7.0 (4.5-10.0) K/mm3 Hgb 15.7 (14.0-18.0) g/dL Hct 41.0 L (42.0-52.0) % Plt Count 193 (150-375) k/mm3 BMP 06/07/24 10:36 Sodium 131 L Potassium 4.4 Chloride 98 Carbon Dioxide 18 L BUN 13 D Creatinine 1.10 Glucose 489 H Calcium 9.7 Cardiac Enzymes 06/07/24 Range/Units 12:24 Troponin I 0.017 (0.000-0.034) ng/mL Liver Function 06/07/24 Range/Units 10:36 Total Bilirubin 0.8 (0.2-1.3) mg/dL AST 32 (17-59) U/L ALT 62 H (6-50) U/L Alkaline Phosphatase 71 (38-126) U/L Albumin 4.2 (3.5-5.1) g/dL Urine 06/07/24 Range/Units 14:07 Urine Color Yellow (Yellow) Urine Appearance Clear (Clear) Urine pH 5.5 (5.0-9.0) Ur Specific [place] 1.039 H (1.001-1.035) Urine Protein 1+ H (Negative) mg/dL Urine Glucose (UA) 3+ H (Negative) mg/dL Imaging Chest X-Ray 06/07/24 11:11 IMPRESSION: 1. Chronic mild left basilar atelectasis/scarring. No other acute cardiopulmonary disease. Head CT 06/07/24 12:48 IMPRESSION: 1. No evidence for acute intracranial hemorrhage or calvarial fracture. Assessment and Plan Assessment and plan (1) Diabetic ketoacidosis associated with type 2 diabetes mellitus: Code(s): E11.10 - Type 2 diabetes mellitus with ketoacidosis without coma Status: Acute Assessment and Plan: Evidence of mild DKA with a glucose of 489, carbon dioxide 18, anion gap 15. No ketones in urine. DKA secondary to noncompliance as per HPI. Hemoglobin A1c today is 11.8%. * IV fluid bolus given on arrival to the ICU. * Currently on insulin drip which will be titrated per DKA protocol. * Continue Q hourly Accu-Cheks and q.4 BMPs. * Resume basal insulin upon resolution of DKA. * Dietitian and diabetic educators consulted. (2) Depression: Qualifiers: Depression Type: unspecified Qualified Code(s): F32.9 - Major depressive disorder, single episode, unspecified Code(s): F32.9 - Major depressive disorder, single episode, unspecified Status: Acute Assessment and Plan: The patient has longstanding depression and admits to occasional, fleeting thoughts of suicide. He has no plan. * Suicide precautions initiated upon admission. * Consult crisis in a.m. though patient is not actively suicidal. (3) Urinary retention: Code(s): R33.9 - Retention of urine, unspecified Status: Acute Assessment and Plan: Bladder was distended on exam and he does complain of intermittent urgency and occasional incontinence. Pre void bladder scan was 750 mL, post void residual was greater than 400. * Straight catheterization x1. * Monitor with p.r.n. bladder scan. * Start tamsulosin. (4) Hypertension: Code(s): I10 - Essential (primary) hypertension Status: Acute Assessment and Plan: Blood pressures have ranged anywhere from 120s to 180s systolic. * Resumes antihypertensives which he was taking previously. * Continue to monitor closely and adjust dosing depending on how he trends. (5) Coronary artery disease: Code(s): I25.10 - Atherosclerotic heart disease of [place] coronary artery without angina pectoris Status: Acute Assessment and Plan: History of 1 vessel bypass and stent x2 several years ago. No recent episodes of chest pain. * Resume baby aspirin, metoprolol, and rosuvastatin. * Check fasting lipids in a.m. (6) Hypothyroidism: Code(s): E03.9 - Hypothyroidism, unspecified Status: Acute Assessment and Plan: Status post radioactive guided ablation many years ago, now with postablative hypothyroidism. * TSH is greater than 100; free T4 is pending. * Received levothyroxine 300 mcg x1. * Resume levothyroxine at 225 mcg daily which he was taking previously. (7) Chronic obstructive pulmonary disease: Code(s): J44.9 - Chronic obstructive pulmonary disease, unspecified Status: Acute Assessment and Plan: Patient is a former smoker. No acute issues with regards to COPD. * P.r.n. albuterol for shortness of breath or wheezing. (8) Obstructive sleep apnea: Code(s): G47.33 - Obstructive sleep apnea (adult) (pediatric) Status: Acute Assessment and Plan: Patient used a CPAP previously but lost it during a move. * CPAP will be provided for the patient to use while hospitalized. * May need a formal outpatient sleep study to get a replaced CPAP. Quality VTE Prophylaxis VTE prophylaxis: pharmacologic ordered The patient has been admitted under observation status. Hospitalist MIPS Advance Care Plan I have confirmed that the patient's Advanced Care Plan is present, code status is documented, or surrogate decision maker is listed in patient medical record.: Yes Medication Reconciliation I have utilized all available resources to obtain, update and review the patient s current medications (includes all prescriptions, OTC, herbals, cannabis, and nutritional supplements).: Yes
--- NOTE | 2024-06-07 15:34 | ADMGEN ---
This patient, Leeroy Schaefer, was admitted to Intensive Care Unit-4. Patient/family oriented to hospital policies and general routines including ID bracelet, bed and alarms, visiting hours, pain management, procedures, bathroom and other care routines, personal items, smoking policy, room service/diet, and visiting hours. Information on how to activate the Rapid Response Team has been discussed. Patient/Family are encouraged to report perceived risks to care and to ask questions if they do not understand what they are told or what they should do.
[2024-06-07] MEDS: SODIUM CHLORIDE 0.9% IV 1,000 ML 150 ML IV CONT (15:45)
[2024-06-07 15:50] LABS: Thyroid Stimulating Hormone Reflex > 100.000 uIU/mL (0.465-4.68)
[2024-06-07] MEDS: INSULIN HUMAN REGULAR (*BKC) 100 UNITS in SODIUM CHLORIDE 0.9% IV 99 ML 14 UNITS IV CONT (16:20)
[2024-06-07] MEDS: LEVOTHYROXINE SODIUM 150 MCG TABLET 300 MCG PO (16:24)
[2024-06-07 16:25] LABS: Free T4 Free Thyroxine Reflex 0.08 ng/dL (0.78-2.19)
[2024-06-07 16:29] LABS: Glucose Point of Care 396 mg/dl (65-105)
--- OUTSIDE RECORDS SUMMARY | 2024-06-07 17:00 | XMS_ITS | CONTINUITY OF CARE DOCUMENT ---
Author Name zuleika to Address Unknown Organization [facility] Address [address] [place] [address] Phone [phone] Care Team Providers Care Flying I Instructor Name Role Phone Anuradha CROCKER, Dolores Pompa Unavailable [phone] DAVID CROCKER, SAGE Unavailable [phone] LATIA CROCKER, CORAL Unavailable [phone] PROBLEMS Condition Status Date Provider Notes Shortness [...] In-person encounter Office Visit Dolores Ling MD [facility] Gallstones - In-person encounter Office Visit Dolores Ling MD [facility] - In-person encounter Office Visit Dolores Ling MD [facility] Palpitations - In-person encounter Office Visit Dolores Ling MD [facility] Abnormal cardiovascular stress test - In-person encounter Office Visit Dolores Ling MD [facility] - In-person encounter Office Visit Dolores Ling MD [facility] Family History Coronary Heart Disease male [...] /min Carol Mack height E&M 70 [in_i] [facility] weight E&M 270 [lb_av] [facility] ALLERGIES No Known Drug Allergies RESULTS Date Observation Value Provider Reference Range Interpretation Location prothrombin time (patient) 10.3 s [facility] 9.1-12.0 international normalized ratio (INR) 1.0 [facility] 0.8-1.2 calcium, serum 9.8 mg/dL [facility] 8.7-10.2 carbon dioxide, venous blood 20 mmol/L [facility] 20-29 chloride, serum 104 mmol/L [facility] 96-106 potassium, serum 4.9 mmol/L [facility] 3.5-5.2 sodium, serum 139 mmol/L [facility] [phone]/12/ 15 urea nitrogen/creatinine ratio, serum 25 [facility] [...] Not Estab. platelet count 216 X10E3/UL [facility] [phone]/12/ 15 red blood cell distribution width 13.2 [...] 0-149 High cholesterol, serum 145 mg/dL [facility] [phone]/12/ 05 alanine aminotransferase (SGPT), serum 23 1/L [...] [facility] 3.5-5.2 sodium, serum 139 mmol/L [facility] [phone]/12/ 05 urea nitrogen/creatinine ratio, serum 21 [facility] [...] Not Estab. platelet count 232 X10E3/UL [facility] [phone]/09/ 22 red blood cell distribution width 14.0 [...] [facility] 3.5-5.2 sodium, serum 135 mmol/L [facility] [phone]/09/ 21 urea nitrogen/creatinine ratio, serum 25 [facility] 9-20 High eGFR if 70 mL/min/{1. 73_m2} [facility] >59 eGFR if not 61 mL/min/{1. 73_m2} [facility] >59 creatinine, serum 1.30 mg/dL [facility] 0.76-1.27 High urea nitrogen, blood 33 mg/dL [facility] 6-24 High blood glucose, random 321 mg/dL [facility] 65-99 High HISTORY OF MEDICATION USE Medication Status Instructions Dates Provider Indications [facility] [place] MIX 70/30 FLEXPEN SUSPENSION PEN-INJECTOR [...] Fe herzog is a former smoker. Dolores iLng MD alcohol use no Carol Mack smoking [...] Payer name Policy type / Coverage type [employer] party ID [facility] [id number] ADVANCE DIRECTIVES Name Date DISCUSSED - NO [...] a very small vessel and is a PROP MAKER with bridging collaterals. LCX has 50-60% stenosis [...] a very small vessel and is a PROP MAKER with bridging collaterals. LCX has 50-60% stenosis [...] Cardiology: O rders: 9 9215 HIGH Complex (CPT-19327) C oronary Stent - [facility] (CPT-40364) Dolores Ling MD Cardiology:Reviewed cath with him. Potentially stentable LCX. May need to do ostial L vein LMT or otherwise plan for 2 stents to the LCX. He is able to delay his gallbladder surgery for [address] Evans for that. Will schedule him for LHC and stent at [facility]. The risks and benefits of the procedure, [...] a very small vessel and is a PROP MAKER with bridging collaterals. LCX has 50-60% stenosis [...] study. O rders: S leep Study Home (CPT-93079) [facility] [place]:Added HCTZ [...] for perfusion. O rders: C omplete Echo (CPT-63887) C arotid Duplex Bilateral (CPT-29624) S TR - Nuclear (CPT-72051) F VC - 08252 (59893) F RC - 03041 (37070) D LCO - 65722 (21350) Dolores Ling MD Cardiology [place]:Check [...] LIC PANEL, W/EGFR LIPID PANEL DLCO - 63179 FRC - 81553 FVC - 63672 STR - Nuclear Carotid Duplex Bilat eral [...] d FVC / MVV with bronchodilator - 15093 Dolores Ling MD completed BLOOD COUNT HEMOGLOBIN Dolores Ling MD completed FRC - 65147 Dolores Ling MD comp leted SpO2 w/o 6min walk/titration Dolores Ling MD completed DLCO - 89716 Dolores Ling MD com pleted EKG Dolores Ling MD compl eted
--- OUTSIDE RECORDS SUMMARY | 2024-06-07 17:00 | XMS_ITS | Patient Health Record ---
Author Organization [facility] [employer] [facility] Address [address] [place] [address] Care Team Providers Care [employer] Torque Tester Name Role Phone Michelle Drake APRN Primary Care Provider Bhavya Sin Unavailable [phone] Bekah Hurtado Unavailable [phone] Migration, Provider Unavailable Unavailable Delfino Zhang Unavailable [phone] Allergies No Known Allergies Reason For Referral No Information Medications Medication SIG (Take, Route, Frequency, Duration) Notes Start Date End Date Status ULTRA-FINE SHORT PEN NEEDLE 31 gauge x 5/16 MISCELLANEOUS *Reorder from VideoLens for eRx and Interaction Alerts* 06/21/2023 Active Levemir FlexPen 100 unit/mL (3 mL) 32 SUBCUTANEOUS bid 06/21/2023 Active FLUoxetine HCl 40 MG 1 capsule Oral Once a day for 30 days Active Primidone 250 MG Oral 06/21/2023 Ac tive Rexulti 1 MG 1 tablet Oral Once a day for 30 days Active Insulin Lispro (1 Unit Dial) 100 UNIT/ML Subcutaneous 15 UNITS AC 06/21/2023 Active metFORMIN HCl 1000 MG 1 tablet with a meal Oral twice a day 06/21/2023 Active Levothyroxine Sodium 200 MCG Oral in addition to 25 MCG 06/21/2023 Active traZODone HCl 50 MG 1 tablet at bedtime Oral at bedtime for 30 days Active DULoxetine HCl 30 MG 1 capsule Orally Once a day for 90 days Active DULoxetine HCl 60 MG 1 cap Orally Once a day for 90 days total 90 mg daily Active Austedo 12 MG 1 tablet with food Orally Twice a day for 30 days d/c 9 mg dose Active Gabapentin 800 MG 1 tablet Orally three times a day Active Torsemide 20 MG as directed Oral 06/21/2023 Active Tamsulosin HCl 0.4 MG Oral 06/21/2023 Active Rosuvastatin Calcium 40 MG Oral 06/21/2023 Active Mounjaro 10 MG/0.5ML as directed Subcutaneous 10 units Active Omeprazole 40 MG 1 capsule 30 minutes before morning meal Orally Once a day *Pick strength-form from VideoLens for eRX* 06/21/2023 Active Levothyroxine Sodium 25 MCG Oral in addition to 200 mcg 06/21/2023 Active Nitroglycerin 0.4 MG Sublingual 06/21/2023 Active Metoprolol Succinate ER 25 MG 0.5 tablets Oral Once a day 06/21/2023 Active Losartan Potassium 25 MG 1 tablet Orally Once a day 06/21/2023 Active Deutetrabenazine ER 24 MG 1 tablet Orally Once a day for 30 days 05/16/2024 Active Immunizations Vaccine Route Administration Date Status [...] Problem Status W/U Status Risk Notes Problem [id number] Major depressive disorder, recurrent severe without psychotic features (F33.2) 3 Active confirmed Problem 91562514 Generalized anxiety disorder (F41.1) 4 Active confirmed Problem Posttraumatic stress disorder (27907598) Post-traumatic stress disorder, chronic (F43.12) 4 Active confirmed Problem Primary insomnia (4095022) Primary insomnia (F51.01) 4 Active confirmed Problem 387871754 On long goods drier drug therapy (Z79.899) Active confirmed Problem [id number] 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) Active confirmed Vital Signs Heart Rate 75 /min 04/25/2024 Respiratory Rate 17 /min 04/25/2024 Height-cm 177.80 cm 04/25/2024 Blood pressure diastolic 83 mm Hg 01/24/2024 Weight-kg 109.32 kg 04/25/2024 Height 70.00 in 04/25/2024 Blood pressure systolic 147 mm Hg 01/24/2024 Weight 241 lbs 04/25/2024 BMI 34.58 kg/m2 04/25/2024 Encounters Encounter Location Date Provider Diagnosis [facility] [address] [address] 06/21/2023 Bhavya Lopez Generalized anxiety disorder F41.1 ; Major depressive disorder, recurrent, mild F33.0 ; Intermittent explosive disorder F63.81 ; Post-traumatic stress disorder, chronic F43.12 and Primary insomnia F51.01 [facility] [address] [address] 10/01/2023 Bhavya Lopez [place] [address] [address] 10/13/2023 Bekah Hurtado Major depressive disorder, recurrent severe without psychotic features F33.2 ; Generalized anxiety disorder F41.1 and Chronic post-traumatic stress disorder F43.12 [facility] [address] [address] 10/22/2023 Bhavya Lopez Generalized anxiety disorder F41.1 ; Major depressive disorder, recurrent severe without psychotic features F33.2 ; Primary insomnia F51.01 ; Intermittent explosive disorder F63.81 ; Post-traumatic stress disorder, chronic F43.12 ; On long goods drier drug therapy Z79.899 and 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 [facility] [address] [address] 10/29/2023 Bekah Hurtado Major depressive disorder, recurrent severe without psychotic features F33.2 ; Generalized anxiety disorder F41.1 and Post-traumatic stress disorder, chronic F43.12 [facility] [place] [address] [address] 11/10/2023 Delfino Rodb 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 ; Major depressive disorder, recurrent severe without psychotic features F33.2 ; Generalized anxiety disorder F41.1 ; Post-traumatic stress disorder, chronic F43.12 and Primary insomnia F51.01 [place] [address] [address] 12/03/2023 Bhavya Thery 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 ; Major depressive disorder, recurrent severe without psychotic features F33.2 ; Generalized anxiety disorder F41.1 ; Post-traumatic stress disorder, chronic F43.12 and Primary insomnia F51.01 [facility] [address] [address] 12/15/2023 Bekah Bryant Major depressive disorder, recurrent severe without psychotic features F33.2 ; Generalized anxiety disorder F41.1 and Post-traumatic stress disorder, chronic F43.12 [facility] [address] [address] 12/24/2023 Bhavya Thery 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 ; Major depressive disorder, recurrent severe without psychotic features F33.2 ; Generalized anxiety disorder F41.1 ; Post-traumatic stress disorder, chronic F43.12 and Primary insomnia F51.01 [place] [address] [address] 01/24/2024 Bhavya Thery 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 ; Major depressive disorder, recurrent severe without psychotic features F33.2 ; Generalized anxiety disorder F41.1 ; Post-traumatic stress disorder, chronic F43.12 and Primary insomnia F51.01 [facility] [address] [address] 02/02/2024 Bekah Bryant Major depressive disorder, recurrent severe without psychotic features F33.2 ; Generalized anxiety disorder F41.1 and Post-traumatic stress disorder, chronic F43.12 [facility] [address] [address] 02/17/2024 Bekah Bryant Major depressive disorder, recurrent severe without psychotic features F33.2 ; Generalized anxiety disorder F41.1 and Post-traumatic stress disorder, chronic F43.12 [facility], [facility] [address] [address] 04/25/2024 Bhavya Thery 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 ; Major depressive disorder, recurrent severe without psychotic features F33.2 ; Generalized anxiety disorder F41.1 ; Post-traumatic stress disorder, chronic F43.12 and Primary insomnia F51.01 [facility], [facility] [address] [place] [address] 06/14/2023 Provider Migration [facility], [facility] [address] [place] [address] 06/21/2023 Provider Migration [facility], [facility] [address] [place] [address] 07/02/2023 Provider Migration [facility], [facility] [address] [place] [address] 07/05/2023 Provider Migration [facility], [facility] [address] [place] [address] 07/17/2023 Provider Migration [facility], [facility] [address] [place] [address] 07/18/2023 Provider 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 [facility], [facility] [address] [place] [address] 11/17/2023 Bhavya Thery [facility], [facility] [address] [place] [address] 12/01/2023 Bhavya Thery Major depressive disorder, recurrent severe without psychotic features F33.2 [facility], [facility] [address] [place] [address] 12/28/2023 Bhavya Thery [facility], [facility] [address] [place] [address] 12/28/2023 Bhavya Thery 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 [facility], [facility] [address] [place] [address] 12/28/2023 Bahvya Thery [facility], [facility] [address] [place] [address] 02/08/2024 Bhavya Thery On senior living drug therapy Z79.899 [facility], [facility] [address] [place] [address] 05/16/2024 Bhavya Lopez 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 05/16/2024 Medication-ind uced movement disorder (ICD-10 - G25.70) Patient been taking Austedo 12 mg BID Austedo XR 18 mg pa approved per pharmacy sent new script for Austedo XR 24 mg daily to [facility] for PA approval 05/16/24 02/08/2024 On long goods drier drug therapy (ICD-10 - Z79.899) Electronic Prior Authorization was requested for Austedo 6 MG Tablet. Provider can order medication once approval received. 10/13/2023 Major depressive disorder, recurrent severe without [...] oldest of 2. Client grew up in [place]. As stated in the previous assessment, client [...] oldest of 2. Client grew up in [place]. As stated in the previous assessment, client [...] issues, irritabiity, and an exaggerated startle response. 02/17/2024 Major depressive disorder, recurrent severe without psychotic features (ICD-10 - F33.2) 04/25/2024 Medication-ind uced movement disorder (ICD-10 - G25.70) Learning About Movement Disorders From Antipsychotic Medicines material was published 1.Depresson Rexulti 1 mg daily Having increase depresison, low motivation, interest and insomnia patient reported not taking Cymbalta 60 mg dose only 30 mg daily Educated patient on taking Cymbalta 90 mg daily for depression and anxiety and help motivation, interest and mood 2. Anxiety Prozac 40 mg Cymbalta 90 mg daily in am 3. Insomnia conitnue to have sleep issues schedule by PCP for sleep study hx JOSH and CPAP Sleep hygiene education Increase Trazodone 100 mg 4.Tardive dyskinesia - Austedo XR 18 MG PA denied Increase Austedo 12 mg twice daily for tardive dyskinesia management- [facility] - He reports increase oral movements on Austedo, AIMS= 8 12/24/23 AIMS= 5 04/25/24 patient reported avoid public and embarrassed with mouth movement and noted mouth movement and tongue movement effects daily activities . Side effects of Austedo and duloxetine EDUCATION - Patient reported not having s/e of sleepiness, clumsiness, and dizziness - Educate patient on the possibility of side effects subsiding as the body adjusts to the medication Laboratory tests- obtain from PCP . Follow-up appointments -refer to therapy . Medication management educated on rx, benefits, side effects andrisk - Reassess medication regimen during follow-up appointments http_s://www.nam i.org/About-Ment al-Illness/Menta g-Ckgcdx-Wekvfea ons http_s://psychce ntral.com/depres héctor/the-cogniti zn-jamkvtxt-gm-d epression#treatm ents http__s://www.ni mh.nih.gov/healt h/topics/mental- health-medicatio ns [...] mg twice daily for tardive dyskinesia management- [facility] - He reports increase oral movements [...] regimen during follow-up appointments http_s://www.nam i.org/About-Ment al-Illness/Menta j-Nxakvl-Fnwvruy ons http_s://psychce QuantaLife.Kelkoo/remiamber anaya/the-cogniti xk-zczwoeco-uz-d epression#treatm ents http__s://www.ni .nih.gov/healt h/topics/mental- health-medicatio ns [...] 02/02/2024 Generalized anxiety disorder (ICD-10 - F41.1) 10/29/2023 Major depressive disorder, recurrent severe without [...] in blurry vision - Refer to an operating room registered nurse if vision worsens or new symptoms arise [...] daily in am for tardive dyskinesia management- [facility] - He reports increase oral movements [...] regimen during follow-up appointments http_s://www.nam i.org/About-Ment al-Illness/Menta m-Rcmthg-Klkngpf ons http_s://Snipshot/robinson anaya/the-cogniti pq-jccgzarf-xh-d epression#treatm ents http__s://www.ni .nih.gov/healt h/topics/mental- health-medicatio ns [...] and interactions with prescribed medications.. - 12/03/2023 Medication-ind uced movement disorder (ICD-10 - [...] in blurry vision - Refer to an operating room registered nurse if vision worsens or new symptoms arise - He reports longstanding blurry vision, describes it as underwater vision 7. Laboratory tests scheduled 12/03 23 8. Follow-up appointments - scheduled 3-4 weeks 9. Medication management educated on rx, benefits, side effects andrisk - Reassess medication regimen during follow-up appointments http_s://www.nam i.org/About-Ment al-Illness/Menta l-Iejmrs-Itrveax ons http_s://psychce [employer].com/robinson anaya/the-cogniti sq-ssuhqzle-ka-d epression#treatm ents http__s://www.ni .nih.gov/healt h/topics/mental- health-medicatio ns [...] seen Endo provider DM and B/S seen supervisor contingents 10/21/23 Rexulti 1 mg daily discuss and [...] with first generation antipsychotics) and more. seen supervisor contingents 10/21/23 obtain labs ENDO/PCP provider 2. Generalized [...] seen Endo provider DM and B/S seen supervisor contingents 10/21/23 Rexulti 1 mg daily discuss and [...] with first generation antipsychotics) and more. seen supervisor contingents 10/21/23 obtain labs ENDO/PCP provider 2. Generalized [...] stress disorder -therapy and PTSD group therapy 06/21/2023 Major depressive disorder, recurrent, mild (ICD-10 - F33.0) 06/21/2023 Generalized anxiety disorder (ICD-10 - F41.1) 06/21/2023 Post-traumatic stress disorder, chronic (ICD-10 - F43.12) 06/21/2023 Primary insomnia (ICD-10 - F51.01) 06/21/2023 Intermittent explosive disorder (ICD-10 - F63.81) 12/15/2023 Generalized anxiety disorder (ICD-10 - F41.1) 12/03/2023 Major depressive disorder, recurrent severe without [...] in blurry vision - Refer to an operating room registered nurse if vision worsens or new symptoms arise - He reports longstanding blurry vision, describes it as underwater vision 7. Laboratory tests scheduled 12/03 23 8. Follow-up appointments - scheduled 3-4 weeks 9. Medication management educated on rx, benefits, side effects andrisk - Reassess medication regimen during follow-up appointments http_s://www.nam i.org/About-Ment al-Illness/Menta t-Cxwtkz-Njgwttg ons http_s://Snipshot/robinson anaya/the-cogniti og-xzoltzxh-fh-d epression#treatm ents http__s://www.ni mh.nih.gov/healt h/topics/mental- health-medicatio ns [...] neurotoxicity and interactions with prescribed medications. 10/22/2023 Primary insomnia (ICD-10 - F51.01) Insomnia: Care Instructions material was published, Learning About Sleeping Well material was published 1. recurrent major depression - seen Endo provider DM and B/S seen supervisor contingents 10/21/23 Rexulti 1 mg daily discuss and [...] with first generation antipsychotics) and more. seen supervisor contingents 10/21/23 obtain labs ENDO/PCP provider 2. Generalized [...] stress disorder -therapy and PTSD group therapy 11/10/2023 Major depressive disorder, recurrent severe without [...] in blurry vision - Refer to an operating room registered nurse if vision worsens or new symptoms arise [...] morning and afternoon instead of before bedtime 10/29/2023 Generalized anxiety disorder (ICD-10 - F41.1) 12/24/2023 Major depressive disorder, recurrent severe without psychotic features (ICD-10 - F33.2) 1.Depresson Rexulti 1 mg daily 2. Anxiety Prozac 40 mg Cymbalta 90 mg daily in am 3. Insomnia Trazodone 50 mg 4.Tardive dyskinesia - Increase Austedo XR 18 MG daily in am for tardive dyskinesia management- [facility] - He reports increase oral movements [...] regimen during follow-up appointments http_s://www.nam i.org/About-Ment al-Illness/Menta b-Ahjgbq-Aibyouc ons http_s://psychce ntral.com/robinson anaya/the-cogniti iw-wrhzectl-jl-d epression#treatdomitila ents http__s://www.ni .nih.gov/healt h/topics/mental- health-medicatio ns http__s://www.na [...] mg twice daily for tardive dyskinesia management- [facility] - He reports increase oral movements [...] regimen during follow-up appointments http_s://www.nam i.org/About-Ment al-Illness/Menta i-Jnteqj-Zrdiddv ons http_s://psychce [employer]antaLife.Kelkoo/depres héctor/the-cogniti kk-pznloykr-eb-d epression#treatm ents http__s://www.ni .nih.gov/healt h/topics/mental- health-medicatio ns http__s://www.[facility].org/About-Men juliann-Illness/Miesha tments/Mental-He alth-Medications educated on all medications, [...] 02/17/2024 Generalized anxiety disorder (ICD-10 - F41.1) 10/13/2023 Chronic post-traumatic stress disorder (ICD-10 - [...] oldest of 2. Client grew up in [place]. As stated in the previous assessment, client [...] issues, irritabiity, and an exaggerated startle response. 04/25/2024 Major depressive disorder, recurrent severe without psychotic features (ICD-10 - F33.2) Learning About Depression material was published, Learning About Depression Screening material was published, Learning About How to Get Help During a Mental Health Crisis material was published, Depression Treatment: Care Instructions material was published, Preventing Depression From Coming Back: Care Instructions material was published 1.Depresson Rexulti 1 mg daily Having increase depresison, low motivation, interest and insomnia patient reported not taking Cymbalta 60 mg dose only 30 mg daily Educated patient on taking Cymbalta 90 mg daily for depression and anxiety and help motivation, interest and mood 2. Anxiety Prozac 40 mg Cymbalta 90 mg daily in am 3. Insomnia conitnue to have sleep issues schedule by PCP for sleep study hx JOSH and CPAP Sleep hygiene education Increase Trazodone 100 mg 4.Tardive dyskinesia - Austedo XR 18 MG PA denied Increase Austedo 12 mg twice daily for tardive dyskinesia management- [facility] - He reports increase oral movements on Austedo, AIMS= 8 12/24/23 AIMS= 5 04/25/24 patient reported avoid public and embarrassed with mouth movement and noted mouth movement and tongue movement effects daily activities . Side effects of Austedo and duloxetine EDUCATION - Patient reported not having s/e of sleepiness, clumsiness, and dizziness - Educate patient on the possibility of side effects subsiding as the body adjusts to the medication Laboratory tests- obtain from PCP . Follow-up appointments -refer to therapy . Medication management educated on rx, benefits, side effects andrisk - Reassess medication regimen during follow-up appointments http_s://www.nam i.org/About-Ment al-Illness/Menta r-Mnnzus-Pghpbno ons http_s://psychce ntral.com/depres héctor/the-cogniti qi-hrwgjcyb-kv-d epression#treatm ents http__s://www.ni .nih.gov/healt h/topics/mental- health-medicatio ns [...] neurotoxicity and interactions with prescribed medications.. - 04/25/2024 Generalized anxiety disorder (ICD-10 - F41.1) Generalized Anxiety Disorder: Care Instructions material was published, Learning About Generalized Anxiety Disorder material was published, Learning About Anxiety Disorders material was published 1.Depresson Rexulti 1 mg daily Having increase depresison, low motivation, interest and insomnia patient reported not taking Cymbalta 60 mg dose only 30 mg daily Educated patient on taking Cymbalta 90 mg daily for depression and anxiety and help motivation, interest and mood 2. Anxiety Prozac 40 mg Cymbalta 90 mg daily in am 3. Insomnia conitnue to have sleep issues schedule by PCP for sleep study hx JOSH and CPAP Sleep hygiene education Increase Trazodone 100 mg 4.Tardive dyskinesia - Austedo XR 18 MG PA denied Increase Austedo 12 mg twice daily for tardive dyskinesia management- [facility] - He reports increase oral movements on Austedo, AIMS= 8 12/24/23 AIMS= 5 04/25/24 patient reported avoid public and embarrassed with mouth movement and noted mouth movement and tongue movement effects daily activities . Side effects of Austedo and duloxetine EDUCATION - Patient reported not having s/e of sleepiness, clumsiness, and dizziness - Educate patient on the possibility of side effects subsiding as the body adjusts to the medication Laboratory tests- obtain from PCP . Follow-up appointments -refer to therapy . Medication management educated on rx, benefits, side effects andrisk - Reassess medication regimen during follow-up appointments http_s://www.nam i.org/About-Ment al-Illness/Menta m-Srjbfc-Timsxkf ons http_s://Snipshot/depramber anaya/the-cogniti tf-qheeajpq-tf-d epression#treatm ents http__s://www.ni .nih.gov/healt h/topics/mental- health-medicatio ns [...] and interactions with prescribed medications.. - 02/17/2024 Post-traumatic stress disorder, chronic (ICD-10 - [...] mg twice daily for tardive dyskinesia management- [facility] - He reports increase oral movements [...] regimen during follow-up appointments http_s://www.nam i.org/About-Ment al-Illness/Menta f-Nltnyc-Dqwghyk ons http_s://psychce ntral.com/depres héctor/the-cogniti vi-cauzioll-or-d epression#treatm ents http__s://www.ni mh.nih.gov/healt h/topics/mental- health-medicatio ns [...] daily in am for tardive dyskinesia management- [facility] - He reports increase oral movements [...] regimen during follow-up appointments http_s://www.nam i.org/About-Ment al-Illness/Menta l-Qvfpfs-Whjmrhl ons http_s://psychce QuantaLife.com/robinson anaya/the-cogniti dc-rvlnoswl-id-d epression#treatdomitila ents http__s://www.ni .nih.gov/healt h/topics/mental- health-medicatio ns http__s://www.na [...] neurotoxicity and interactions with prescribed medications.. - 10/29/2023 Post-traumatic stress disorder, chronic (ICD-10 - [...] in blurry vision - Refer to an operating room registered nurse if vision worsens or new symptoms arise [...] morning and afternoon instead of before bedtime 10/22/2023 Intermittent explosive disorder (ICD-10 - F63.81) Personality Disorders: Care Instructions material was published 1. recurrent major depression - seen Endo provider DM and B/S seen supervisor contingents 10/21/23 Rexulti 1 mg daily discuss and [...] with first generation antipsychotics) and more. seen supervisor contingents 10/21/23 obtain labs ENDO/PCP provider 2. Generalized [...] disorder -therapy and PTSD group therapy 12/03/2023 Generalized anxiety disorder (ICD-10 - F41.1) [...] in blurry vision - Refer to an operating room registered nurse if vision worsens or new symptoms arise - He reports longstanding blurry vision, describes it as underwater vision 7. Laboratory tests scheduled 12/03 23 8. Follow-up appointments - scheduled 3-4 weeks 9. Medication management educated on rx, benefits, side effects andrisk - Reassess medication regimen during follow-up appointments http_s://www.nam i.org/About-Ment al-Illness/Menta d-Kfuvig-Ysicank ons http_s://psychce [employer]Med [employer]/depramber héctor/the-cogniti ti-gmbwigru-zi-d epression#treatm ents http__s://www.ni mh.nih.gov/healt h/topics/mental- health-medicatio ns [...] neurotoxicity and interactions with prescribed medications. 12/15/2023 Post-traumatic stress disorder, chronic (ICD-10 - F43.12) 12/03/2023 Post-traumatic stress disorder, chronic (ICD-10 - [...] in blurry vision - Refer to an operating room registered nurse if vision worsens or new symptoms arise - He reports longstanding blurry vision, describes it as underwater vision 7. Laboratory tests scheduled 12/03 23 8. Follow-up appointments - scheduled 3-4 weeks 9. Medication management educated on rx, benefits, side effects andrisk - Reassess medication regimen during follow-up appointments http_s://www.nam i.org/About-Ment al-Illness/Menta j-Xdeajt-Ymnsacq ons http_s://Snipshot/robinson héctor/the-cogniti sh-sadvaccu-pt-d epression#treatm ents http__s://www.ni .nih.gov/healt h/topics/mental- health-medicatio ns [...] in blurry vision - Refer to an operating room registered nurse if vision worsens or new symptoms arise - He reports longstanding blurry vision, describes it as underwater vision 7. Laboratory tests - He to complete blood work within the week, including white blood cell count - Review results at the next appointment 8. Follow-up appointments - Schedule a follow-up appointment with HIMANSHU Zhang in one week - Keep the scheduled appointment with Bhavya Montoya. Medication management - Continue current medications as [...] in blurry vision - Refer to an operating room registered nurse if vision worsens or new symptoms arise - He reports longstanding blurry vision, describes it as underwater vision 7. Laboratory tests - He to complete blood work within the week, including white blood cell count - Review results at the next appointment 8. Follow-up appointments - Schedule a follow-up appointment with HIMANSHU Zhang in one week - Keep the scheduled appointment with Bhavya Therry 9. Medication management - Continue current medications as prescribed, including Lyrica, Mounjaro, levothyroxine, metoprolol, primidone, temozolomide, rosuvastatin, omeprazole, losartan potassium, tamsulosin, fluoxetine, Rexulti, trazodone, and duloxetine - Reassess medication regimen during follow-up appointments - He reports taking Lyrica in the morning and afternoon instead of before bedtime 10/22/2023 Post-traumatic stress disorder, chronic (ICD-10 - F43.12) Post-Traumatic Stress Disorder (PTSD): Care Instructions material was published 1. recurrent major depression - seen Endo provider DM and B/S seen supervisor contingents 10/21/23 Rexulti 1 mg daily discuss and [...] with first generation antipsychotics) and more. seen supervisor contingents 10/21/23 obtain labs ENDO/PCP provider 2. Generalized [...] stress disorder -therapy and PTSD group therapy 12/24/2023 Post-traumatic stress disorder, chronic (ICD-10 - F43.12) 1.Depresson Rexulti 1 mg daily 2. Anxiety Prozac 40 mg Cymbalta 90 mg daily in am 3. Insomnia Trazodone 50 mg 4.Tardive dyskinesia - Increase Austedo XR 18 MG daily in am for tardive dyskinesia management- [facility] - He reports increase oral movements [...] regimen during follow-up appointments http_s://www.nam i.org/About-Ment al-Illness/Menta f-Cjgvew-Hsbdgnr ons http_s://psychce ntral.com/depramber héctor/the-cogniti tb-cjigpprq-bt-d epression#treatm ents http__s://www.ni mh.nih.gov/healt h/topics/mental- health-medicatio ns http__s://www.na mi.org/About-Men juliann-Illness/Miesha elizabethnts/Mental-He [...] mg twice daily for tardive dyskinesia management- [facility] - He reports increase oral movements [...] regimen during follow-up appointments http_s://www.nam i.org/About-Ment al-Illness/Menta n-Oerghx-Cwiwcjc ons http_s://Snipshot/depramber héctor/the-cogniti bn-mmotkrss-tf-d epression#treatm ents http__s://www.ni .nih.gov/healt h/topics/mental- health-medicatio ns [...] neurotoxicity and interactions with prescribed medications.. - 04/25/2024 Post-traumatic stress disorder, chronic (ICD-10 - F43.12) 1.Depresson Rexulti 1 mg daily Having increase depresison, low motivation, interest and insomnia patient reported not taking Cymbalta 60 mg dose only 30 mg daily Educated patient on taking Cymbalta 90 mg daily for depression and anxiety and help motivation, interest and mood 2. Anxiety Prozac 40 mg Cymbalta 90 mg daily in am 3. Insomnia conitnue to have sleep issues schedule by PCP for sleep study hx JOSH and CPAP Sleep hygiene education Increase Trazodone 100 mg 4.Tardive dyskinesia - Austedo XR 18 MG PA denied Increase Austedo 12 mg twice daily for tardive dyskinesia management- [facility] - He reports increase oral movements on Austedo, AIMS= 8 12/24/23 AIMS= 5 04/25/24 patient reported avoid public and embarrassed with mouth movement and noted mouth movement and tongue movement effects daily activities . Side effects of Austedo and duloxetine EDUCATION - Patient reported not having s/e of sleepiness, clumsiness, and dizziness - Educate patient on the possibility of side effects subsiding as the body adjusts to the medication Laboratory tests- obtain from PCP . Follow-up appointments -refer to therapy . Medication management educated on rx, benefits, side effects andrisk - Reassess medication regimen during follow-up appointments http_s://www.nam i.org/About-Ment al-Illness/Menta w-Fzvyje-Riueuey ons http_s://psychce [employer].com/robinson héctor/the-cogniti rv-dsffbbtw-ds-d epression#treatm ents http__s://www.ni mh.nih.gov/healt h/topics/mental- health-medicatio ns [...] neurotoxicity and interactions with prescribed medications.. - 04/25/2024 Primary insomnia (ICD-10 - F51.01) Insomnia: Care Instructions material was published, Learning About Sleeping Well material was published 1.Depresson Rexulti 1 mg daily Having increase depresison, low motivation, interest and insomnia patient reported not taking Cymbalta 60 mg dose only 30 mg daily Educated patient on taking Cymbalta 90 mg daily for depression and anxiety and help motivation, interest and mood 2. Anxiety Prozac 40 mg Cymbalta 90 mg daily in am 3. Insomnia conitnue to have sleep issues schedule by PCP for sleep study hx JOSH and CPAP Sleep hygiene education Increase Trazodone 100 mg 4.Tardive dyskinesia - Austedo XR 18 MG PA denied Increase Austedo 12 mg twice daily for tardive dyskinesia management- [facility] - He reports increase oral movements on Austedo, AIMS= 8 12/24/23 AIMS= 5 04/25/24 patient reported avoid public and embarrassed with mouth movement and noted mouth movement and tongue movement effects daily activities . Side effects of Austedo and duloxetine EDUCATION - Patient reported not having s/e of sleepiness, clumsiness, and dizziness - Educate patient on the possibility of side effects subsiding as the body adjusts to the medication Laboratory tests- obtain from PCP . Follow-up appointments -refer to therapy . Medication management educated on rx, benefits, side effects andrisk - Reassess medication regimen during follow-up appointments http_s://www.nam i.org/About-Ment al-Illness/Menta k-Vlcfjz-Kvnhuxq ons http_s://psychf-[employer]/depres héctor/the-cogniti jl-lidttaeg-jx-d epression#treatm ents http__s://www.ni .nih.gov/healt h/topics/mental- health-medicatio ns [...] mg twice daily for tardive dyskinesia management- [facility] - He reports increase oral movements [...] regimen during follow-up appointments http_s://www.nam i.org/About-Ment al-Illness/Menta m-Ehlbgk-Wxrcnze ons http_s://psychf-[employer]/depres héctor/the-cogniti wz-zqttpwpf-pq-d epression#treatm ents http__s://www.ni .nih.gov/healt h/topics/mental- health-medicatio ns http__s://www.[facility].org/About-Men juliann-Illness/Miesha tments/Mental-He alth-Medications educated on all medications, [...] daily in am for tardive dyskinesia management- [facility] - He reports increase oral movements [...] regimen during follow-up appointments http_s://www.nam i.org/About-Ment al-Illness/Menta y-Bnpaqe-Vrszdap ons http_s://psychce ntral.com/depramber héctor/the-cogniti bk-wddajbgw-vu-d epression#treatm ents http__s://www.ni .nih.gov/healt h/topics/mental- health-medicatio ns [...] neurotoxicity and interactions with prescribed medications.. - 10/22/2023 On senior living drug therapy (ICD-10 - Z79.899) Medication Refill: Care Instructions material was published 1. recurrent major depression - seen Endo provider DM and B/S seen supervisor contingents 10/21/23 Rexulti 1 mg daily discuss and [...] with first generation antipsychotics) and more. seen supervisor contingents 10/21/23 obtain labs ENDO/PCP provider 2. Generalized [...] disorder -therapy and PTSD group therapy 12/03/2023 Primary insomnia (ICD-10 - F51.01) 1. [...] in blurry vision - Refer to an operating room registered nurse if vision worsens or new symptoms arise - He reports longstanding blurry vision, describes it as underwater vision 7. Laboratory tests scheduled 12/03 23 8. Follow-up appointments - scheduled 3-4 weeks 9. Medication management educated on rx, benefits, side effects andrisk - Reassess medication regimen during follow-up appointments http_s://www.nam i.org/About-Ment al-Illness/Menta i-Yovwnc-Isgrzjk ons http_s://psychf-[employer]/robinson anaya/the-cogniti mq-pdgycsli-el-d epression#treatm ents http__s://www.ni .nih.gov/healt h/topics/mental- health-medicatio ns [...] neurotoxicity and interactions with prescribed medications. 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 recurrent major depression - seen Endo provider DM and B/S seen supervisor contingents 10/21/23 Rexulti 1 mg daily discuss and [...] with first generation antipsychotics) and more. seen supervisor contingents 10/21/23 obtain labs ENDO/PCP provider 2. Generalized [...] oldest of 2. Client grew up in [place]. As stated in the previous assessment, client [...] seen Endo provider DM and B/S seen supervisor contingents 10/21/23 Rexulti 1 mg daily discuss and [...] with first generation antipsychotics) and more. seen supervisor contingents 10/21/23 obtain labs ENDO/PCP provider 2. Generalized [...] could help (Ex: [facility] in [place]).. 01/24/2024 Other Deutetrabenazin e Oral Tablet (DEUTETRABENAZINE [...] mg twice daily for tardive dyskinesia management- [facility] - He reports increase oral movements [...] regimen during follow-up appointments http_s://www.nam i.org/About-Ment al-Illness/Menta n-Lqqkbi-Pysdlcy ons http_s://psychce Sococo/depramber héctor/the-cogniti ad-bvkmjyve-kl-d epression#treatm ents http__s://www.ni .nih.gov/healt h/topics/mental- health-medicatio ns [...] might be able to help such as [facility]. 02/17/2024 Other Cleint reports he [...] Provider Name:Bhavya Lopez , 07/21/2024 01:00:00 PM, [address], [facility] [address], [place], [address], Insurance Providers Payer Name Payer Address Payer Phone Subscriber Number Group Number Insured Name Patient Relationship to Insured Coverage Start Date Coverage End Date [employer] Medicare Replacement/ Advantage - Ppo [address] [address] [place] [phone] [id number] JACQUELIN CONRAD Self - patient is the insured [place] [address] [address] [place] [address] [id number] JACQUELIN CONRAD Self - patient is the insured Medical (General) History Medical History History ICD Code Problems: Chronic post-traumatic stress disorder Generalized anxiety disorder Intermittent explosive disorder Mild recurrent major depression Primary insomnia Severe recurrent major depression , Surgical History Surgery Date(Month/Year) Heart surgery 2009 Cardiac stent 2009 & 2018 Cervical laminectomy (630456893) 1998 & 2000 Repair of inguinal hernia (04608175) 201 2 & 2013 Cardiac stent 06/16/2009 Heart surgery 12/16/2009 Removal of gallbladder (20786) 9
--- OUTSIDE RECORDS SUMMARY | 2024-06-07 17:02 | XMS_ITS | CONTINUITY OF CARE DOCUMENT ---
Author Name zuleika to Address Unknown Organization [facility] Address [address] [place] [address] Phone [phone] Care Team Providers Care Living Advisor Name Role Phone Anuradha CROCKER, Dolores Pompa Unavailable [phone] SAGE EVANS MD Unavailable [phone] LATIA CROCKER, CORAL Unavailable [phone] PROBLEMS Condition Status Date Provider Notes Shortness [...] In-person encounter Office Visit Dolores Ling MD [facility] Gallstones - In-person encounter Office Visit Dolores Ling MD [facility] - In-person encounter Office Visit Dolores Ling MD [facility] Palpitations - In-person encounter Office Visit Dolores Ling MD [facility] Abnormal cardiovascular stress test - In-person encounter Office Visit Dolores Ling MD [facility] - In-person encounter Office Visit Dolores Ling MD [facility] Family History Coronary Heart Disease male [...] enson height E&M 70 [in_i] Yi Jordan nslydna Body Mass Index (Ratio) 39.11 kg/m2 Lewis [...] /min Carol Mack height E&M 70 [in_i] [facility] weight E&M 270 [lb_av] [facility] ALLERGIES No Known Drug Allergies RESULTS Date Observation Value Provider Reference Range Interpretation Location prothrombin time (patient) 10.3 s [facility] 9.1-12.0 international normalized ratio (INR) 1.0 [facility] 0.8-1.2 calcium, serum 9.8 mg/dL [facility] 8.7-10.2 carbon dioxide, venous blood 20 mmol/L [facility] 20-29 chloride, serum 104 mmol/L [facility] 96-106 potassium, serum 4.9 mmol/L [facility] 3.5-5.2 sodium, serum 139 mmol/L [facility] 330-956 6907/12/ 15 urea nitrogen/creatinine ratio, serum 25 [facility] [...] Not Estab. platelet count 216 X10E3/UL [facility] [phone]/12/ 15 red blood cell distribution width 13.2 [...] 0-149 High cholesterol, serum 145 mg/dL [facility] 127-049 9178/12/ 05 alanine aminotransferase (SGPT), serum 23 1/L [...] [facility] 3.5-5.2 sodium, serum 139 mmol/L [facility] 525-032 9062/12/ 05 urea nitrogen/creatinine ratio, serum 21 [facility] [...] Not Estab. platelet count 232 X10E3/UL [facility] 399-348 3547/09/ 22 red blood cell distribution width 14.0 [...] [facility] 3.5-5.2 sodium, serum 135 mmol/L [facility] 112-778 4359/09/ 21 urea nitrogen/creatinine ratio, serum 25 [facility] 9-20 High eGFR if 70 mL/min/{1. 73_m2} [facility] >59 eGFR if not 61 mL/min/{1. 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 LCX has 50-60% stenosis [...] a very small vessel and is a HANGER OFF with bridging collaterals. LCX has 50-60% stenosis [...] Cardiology: O rders: 9 9215 HIGH Complex (CPT-38037) C oronary Stent - [facility] (CPT-90114) Dolores Ling MD Cardiology:Reviewed cath with him. Potentially stentable LCX. May need to do ostial L vein LMT or otherwise plan for 2 stents to the LCX. He is able to delay his gallbladder surgery for [address] Evans for that. Will schedule him for LHC and stent at [facility]. The risks and benefits of the procedure, [...] a very small vessel and is a HANGER OFF with bridging collaterals. LCX has 50-60% stenosis [...] study. O rders: S leep Study Home (CPT-82904) Tripp Rene Cardiology New Patie nt:Added HCTZ [...] for perfusion. O rders: C omplete Echo (CPT-12684) C arotid Duplex Bilateral (CPT-05287) S TR - Nuclear (CPT-04991) F VC - 94813 (40340) F RC - 65372 (69317) D LCO - 15231 (63320) Dolores Ling MD Cardiology New Patie nt:Check [...] LIC PANEL, W/EGFR LIPID PANEL DLCO - 69095 FRC - 78263 FVC - 61702 STR - Nuclear Carotid Duplex Bilat eral [...] d FVC / MVV with bronchodilator - 22186 Dolores Ling MD completed BLOOD COUNT HEMOGLOBIN Dolores Ling MD completed FRC - 52281 Dolores Ling MD comp leted SpO2 w/o 6min walk/titration Dolores Ling MD completed DLCO - 65735 Dolores Ling MD com pleted EKG Dolores Ling MD compl eted
[2024-06-07 17:28] LABS: Glucose Point of Care 338 mg/dl (65-105)
--- NOTE | 2024-06-07 17:55 | PC.NURSE ---
Patient arrived to the floor via stretcher from the ER at approximately 1531pm. Alert and oriented. Placed on ekg monitor, vital signs obtained and blood glucose level checked. Patient states that he has not taken any of his medications for one month, nor has he checked his blood glucose for one month. He states that his medications were not working . He further states Because of my neuropathy I can't do the things that I enjoy any longer . I use to bowl, and because of neuropathy I can't do that, I can't ride a motorcycle any more, I walk with a cane at times . And the straw that broke the camels back, I was driving home and lost control of my bladder in the car . He further states Since then I haven't left my house because I want to be close to a bathroom . That is humiliating . I was just thinking if I stop taking my medications maybe nature would take its course . I frequently wonder if I need all of those medications anymore since they don't help . The patient is very kind, and respectful. Denies wanting to harm himself at this time and states I wouldn't have called 911 of if I wanted to kill myself . Vital signs stable at this time. No acute distress noted. Discussed with patient that all of his personal belongings would need to be removed from his room, including his cell phone. Patient compliant and verbalizes understanding at this time. Sitter remains at the bedside at this time.
[2024-06-07 17:57] LABS: Triglycerides > 2625 mg/dL (<150)
--- NOTE | 2024-06-07 18:08 | PC.NURSE ---
Patient states that he has been diagnosed with sleep apnea in the past however he does not use a cpap machine at home any longer.
[2024-06-07] MEDS: GABAPENTIN 400 MG CAPSULE 800 MG PO (18:43)
[2024-06-07 18:44] LABS: Glucose Point of Care 296 mg/dl (65-105)
[2024-06-07] MEDS: ONDANSETRON INJ 4 MG/2 ML VIAL IV PUSH (19:30)
[2024-06-07 20:07] LABS: Glucose Point of Care 245 mg/dl (65-105)
[2024-06-07] MEDS: KCL 20 MEQ/D5/0.45% SOD CHL 1,000 ML 150 ML IV CONT (20:20)
[2024-06-07 20:32] LABS: Hemoglobin A1C 11.8 % (<5.7)
[2024-06-07 21:57] LABS: Glucose Point of Care 201 mg/dl (65-105)
[2024-06-07] MEDS: INSULIN HUMAN REGULAR (*BKC) 100 UNITS in SODIUM CHLORIDE 0.9% IV 99 ML 15.5 UNITS IV CONT (22:00)
[2024-06-07 22:54] LABS: MRSA (PCR) NOT DETECTED (NOT DETECTE)
[2024-06-07 23:27] LABS: Glucose Point of Care 144 mg/dl (65-105)
[2024-06-08] VITALS (17 sets, daily range): BP systolic 108–156; BP diastolic 51–83; PULSE 48–62; RESP 9–22; TEMP 36.6–37; O2SAT 93–100
[2024-06-08 00:25] LABS: Glucose Point of Care 135 mg/dl (65-105)
[2024-06-08 01:37] LABS: Glucose Point of Care 132 mg/dl (65-105)
[2024-06-08 01:55] LABS: Anion Gap 10 mmol/L (4-12); Blood Urea Nitrogen 9 mg/dL (9-20); Calcium 8.6 mg/dL (8.4-10.2); Carbon Dioxide 19 mmol/L (22-30); Chloride 105 mmol/L (98-107); Estimated CRCL calculation 89 ml/min; Estimated Glomerular Filt Rate > 60; Glucose 138 mg/dL (65-110); Potassium 3.7 mmol/L (3.4-5.0); Sodium 134 mmol/L (137-145)
[2024-06-08] MEDS: KCL 20 MEQ/D5/0.45% SOD CHL 1,000 ML 150 ML IV CONT ×3 (02:46→23:44)
[2024-06-08 03:02] LABS: Glucose Point of Care 144 mg/dl (65-105)
[2024-06-08 04:44] LABS: Glucose Point of Care 175 mg/dl (65-105)
[2024-06-08] MEDS: LEVOTHYROXINE SODIUM 75 MCG TABLET 225 MCG PO (05:27)
[2024-06-08 05:50] LABS: Glucose Point of Care 173 mg/dl (65-105)
[2024-06-08 06:30] LABS: Basophils Absolute Auto 0.1 K/mm3 (0.0-0.1); Basophils Percent Auto 0.6 % (0.2-1.2); Eosinophils Absolute Auto 0.2 K/mm3 (0-0.3); Eosinophils Percent Auto 2.3 % (0-4.4); Hemoglobin 14.4 g/dL (14.0-18.0); Immature Granulocyte Absolute 0.02 K/mm3 (0.00-0.031); Immature Granulocyte Percent A 0.2 % (0-0.5); Lymphocytes Absolute Auto 3.01 K/mm3 (0.9-3.2); Lymphocytes Percent Auto 31.8 % (18.3-44.2); Mean Corpuscular HGB Conc 35.1 g/dl (32-36); Mean Corpuscular Hemoglobin 30.5 pg (26-34); Mean Corpuscular Volume 86.9 fl (80-100); Mean Platelet Volume 10.9 fl (7.4-10.4); Monocytes Absolute Auto 0.5 K/mm3 (0.1-0.6); Neutrophils Absolute Auto 5.7 K/mm3 (1.3-6.7); Neutrophils Percent Auto 60.1 % (45.5-73.1); Platelet Count Result 164 k/mm3 (150-375); Red Blood Count 4.72 M/mm3 (4.6-6.20); Red Cell Distribution Width 14.3 % (11.5-14.5); White Blood Count 9.5 K/mm3 (4.5-10.0)
[2024-06-08 06:44] LABS: Glucose Point of Care 181 mg/dl (65-105)
[2024-06-08 07:35] LABS: Glucose Point of Care 188 mg/dl (65-105)
[2024-06-08] MEDS: LOSARTAN POTASSIUM 25 MG TABLET PO (08:31)
[2024-06-08] MEDS: ASPIRIN 81 MG ENTERIC TABLET PO (08:31)
[2024-06-08] MEDS: PANTOPRAZOLE 40 MG TABLET PO (08:31)
[2024-06-08] MEDS: METOPROLOL SUCCINATE EXT REL 25 MG TABCR PO (08:31)
[2024-06-08] MEDS: GABAPENTIN 400 MG CAPSULE 800 MG PO ×3 (08:31→16:31)
[2024-06-08] MEDS: ENOXAPARIN 40 MG/0.4 ML SYRINGE SUB-Q (08:32)
[2024-06-08] MEDS: POTASSIUM CHLORIDE 20 MEQ ER TABLET 40 MEQ PO (08:34)
[2024-06-08 08:37] LABS: Glucose Point of Care 200 mg/dl (65-105)
[2024-06-08] MEDS: ROSUVASTATIN 20 MG TABLET 40 MG PO (08:42)
[2024-06-08 08:45] LABS: Chloride 106 mmol/L (98-107); Estimated CRCL calculation 73 ml/min; Estimated Glomerular Filt Rate > 60; Magnesium 1.5 mg/dL (1.6-2.3); Sodium 134 mmol/L (137-145)
--- NOTE | 2024-06-08 09:39 | WPDINTPN ---
Progress Note: A&P Assessment and Plan (1) DKA (diabetic ketoacidosis): Code(s): E11.10 - Type 2 diabetes mellitus with ketoacidosis without coma Status: Acute Assessment and Plan: Patient admitted with DKA secondary to noncompliance. His iron gap has closed. He has hypertriglyceridemia for which insulin infusion will be continued Serial labs ordered Replace electrolytes as needed Start diet (2) Depression: Qualifiers: Depression Type: unspecified Qualified Code(s): F32.9 - Major depressive disorder, single episode, unspecified Code(s): F32.9 - Major depressive disorder, single episode, unspecified Status: Acute Assessment and Plan: Patient has history of depression now with suicidal ideation Sitter at bedside for one-to-one observation Suicide precautions Patient has not been taking his home medications for more than a month (3) CAD (coronary artery disease): Code(s): I25.10 - Atherosclerotic heart disease of [place] coronary artery without angina pectoris Status: Acute Assessment and Plan: History of coronary disease status post stent Continue aspirin beta-maulik statin and losartan (4) Hyperlipidemia: Qualifiers: Hyperlipidemia type: unspecified Qualified Code(s): E78.5 - Hyperlipidemia, unspecified Code(s): E78.5 - Hyperlipidemia, unspecified Status: Acute Assessment and Plan: Continue statin (5) Hypothyroidism: Code(s): E03.9 - Hypothyroidism, unspecified Status: Acute Assessment and Plan: TSH is high likely secondary to noncompliance as patient has not taken his thyroid pills for more than a month I have resumed his levothyroxine at home dose (6) JOSH (obstructive sleep apnea): Code(s): G47.33 - Obstructive sleep apnea (adult) (pediatric) Status: Acute Assessment and Plan: CPAP (7) Diabetic neuropathy: Code(s): E11.40 - Type 2 diabetes mellitus with diabetic neuropathy, unspecified Status: Acute Assessment and Plan: Continue Neurontin (8) Suicide ideation: Code(s): R45.851 - Suicidal ideations Status: Acute Assessment and Plan: One-to-one sitter Suicide precaution (9) Hypertriglyceridemia: Code(s): E78.1 - Pure hyperglyceridemia Status: Acute Assessment and Plan: Patient initial triglyceride check was> 2625 He was started insulin infusion for his DKA and triglyceride level today's 1535 He does not have any abdominal pain and slight his norm His triglyceride level is likely secondary to uncontrolled diabetes and untreated hypothyroidism Continue insulin infusion, monitor triglyceride levels Continue statin, add fenofibrate and continue metformin Low-fat diet Plan DVT prophylaxis -Lovenox Stress ulcer prophylaxis -PPI Nutrition -diet ordered Code Status - Full Code I spoke to and updated patient's brother who was sitting at bedside. I answered all their questions. Total Critical Care Time - 30 minutes Due to a high probability of clinically significant, life threatening deterioration, the patient required my highest level of preparedness to intervene emergently and I personally spent this critical care time directly and personally managing the patient. This critical care time included obtaining a history; examining the patient; pulse oximetry; ordering and review of studies; arranging urgent treatment with development of a management plan; evaluation of patient's response to treatment; frequent reassessment; and discussions with other providers. It was exclusive of separately billable procedures and treating other patients and teaching time. Please see Assessment and Plan section and the rest of the note for further information on patient assessment and treatment Subjective Date/time seen: 06/08/24 Patient states he feels much better this morning and denies any nausea vomiting abdominal pain. He feels he is ready to eat. Patient denies fever, chest pain, shortness of breath, cough, nausea vomiting, abdominal pain,, diarrhea, headache or constipation. All other systems were reviewed and were negative Sinus bradycardia on the monitor blood pressure is adequate Improved urine output Review of Systems Review of Systems: All systems reviewed & are unremarkable except as noted in HPI and below (HPI) Exam Narrative: General: Pt is alert awake and in NAD Lungs/Chest: Trachea central Clear BS B/L, No crackles or wheezing. Cardiac: RRR. Normal S1 S2. No murmurs Circulation: Pedal pulses are intact and symmetrical. Abdomen: Normal bowel sounds. Obese. Soft. NT. ND. Extremities: No clubbing, cyanosis or edema. Warm : Johnson in place Neurologic: Follows commands. Moves all 4 extremities PERRL Skin: No Rash Psych: Normal speech, flat affect, admits to suicide ideation and also a suicide attempt when he was 16 years old Objective Data Vital Signs Vital Signs: Vital Signs - 24 hr 06/07/24 10:04 06/07/24 12:02 06/07/24 13:52 Temperature 36.3 C L Pulse Rate 60 57 L 54 L Respiratory Rate 18 16 16 Blood Pressure 180/89 H 179/92 H 159/89 H Pulse Oximetry 99 99 99 Oxygen Delivery Room Air 06/07/24 14:52 06/07/24 15:33 06/07/24 16:00 Temperature Pulse Rate 54 L 54 L Respiratory Rate 16 16 Blood Pressure 160/87 H 175/87 H Pulse Oximetry 100 100 Oxygen Delivery Room Air 06/07/24 16:00 06/07/24 16:00 06/07/24 18:00 Temperature Pulse Rate 54 L 54 L 58 L Respiratory Rate 9 L Blood Pressure 175/87 H Pulse Oximetry 100 Oxygen Delivery 06/07/24 18:00 06/07/24 19:54 06/07/24 20:00 Temperature Pulse Rate 59 L 59 L 60 Respiratory Rate 11 L 14 Blood Pressure 153/78 H Pulse Oximetry 98 98 Oxygen Delivery Room Air 06/07/24 20:03 06/07/24 22:00 06/07/24 22:01 Temperature Pulse Rate 63 58 L 52 L Respiratory Rate 14 15 Blood Pressure 126/74 149/84 H Pulse Oximetry 94 95 Oxygen Delivery 06/07/24 22:30 06/07/24 22:30 06/08/24 00:00 Temperature Pulse Rate 59 L 59 L 59 L Respiratory Rate 20 13 14 Blood Pressure Pulse Oximetry 94 94 95 Oxygen Delivery CPAP Autopap Autopap 06/08/24 00:00 06/08/24 00:00 06/08/24 02:00 Temperature 36.9 C Pulse Rate 58 L 62 56 L Respiratory Rate 15 Blood Pressure 135/72 Pulse Oximetry 96 Oxygen Delivery 06/08/24 02:00 06/08/24 02:48 06/08/24 03:44 Temperature Pulse Rate 56 L 57 L 57 L Respiratory Rate 13 11 L 16 Blood Pressure 115/71 Pulse Oximetry 96 96 93 Oxygen Delivery Autopap Autopap 06/08/24 04:00 06/08/24 04:00 06/08/24 06:00 Temperature 37.0 C Pulse Rate 56 L 56 L 51 L Respiratory Rate 13 Blood Pressure 109/63 Pulse Oximetry 99 Oxygen Delivery 06/08/24 06:00 06/08/24 08:00 06/08/24 08:00 Temperature Pulse Rate 51 L 50 L 50 L Respiratory Rate 14 15 Blood Pressure 126/70 Pulse Oximetry 100 100 Oxygen Delivery Autopap 06/08/24 08:00 06/08/24 08:31 Temperature Pulse Rate 50 L 51 L Respiratory Rate 15 Blood Pressure 147/79 H Pulse Oximetry 98 Oxygen Delivery Intake/Output Intake/Output: Intake & Output 06/05/24 06/06/24 06/07/24 06/08/24 23:59 23:59 23:59 23:59 Intake Total 2794.8 972.4 Output Total 800 380 Balance 1994.8 592.4 Meds/Results Medications: Active Medications Generic Name Dose Route Start Last Admin Trade Name Freq PRN Reason Stop Dose Admin Aspirin 81 mg 06/08/24 09:00 06/08/24 08:31 Aspirin 81 Mg Enteric Tablet PO 81 mg QAM JAZMÍN Administration Dextrose 12.5 gm 06/07/24 13:12 Dextrose 50% 25 Gm/50 Ml Syringe IV PUSH PRN PRN Hypoglycemia Protocol Enoxaparin Sodium 40 mg 06/08/24 09:00 06/08/24 08:32 Enoxaparin 40 Mg/0.4 Ml Syringe SUB-Q 40 mg DAILY JAZMÍN Administration Gabapentin 800 mg 06/07/24 17:00 06/08/24 08:31 Gabapentin 400 Mg Capsule PO 800 mg TID JAZMÍN Administration Glucagon 1 mg 06/07/24 13:12 Glucagon For Inj 1 Mg Vial IM PRN PRN Hypoglycemia Protocol Glucose 15 gm 06/07/24 13:12 Glucose Oral Gel 15 Gm Of Glucse In 37.5 Gm Tube PO PRN PRN Hypoglycemia Protocol Sodium Chloride 1,000 mls @ 150 mls/hr 06/07/24 13:15 06/07/24 20:20 Normal Saline Iv IV CONT 0 mls/hr .Q6H40M JAZMÍN Infusion Dextrose 1,000 mls @ 100 mls/hr 06/07/24 13:12 Dextrose 5% 1,000 Ml IVPB PRN PRN Hypoglycemia Protocol Potassium Chloride/Dextrose/Sod Cl 1,000 mls @ 150 mls/hr 06/07/24 13:45 06/08/24 02:46 Kcl 20 Meq/D5/0.45% Sod Chl IV CONT 150 mls/hr .Q6H40M JAZMÍN Administration Dextrose/Sodium Chloride 1,000 mls @ 150 mls/hr 06/07/24 13:45 Dextrose 5% Sodium Chloride 0.45% IV CONT .Q6H40M AJZMÍN Insulin Human Regular 100 100 mls @ 1 mls/hr 06/07/24 13:45 06/08/24 06:41 units/ Sodium Chloride IV CONT 1 units/hr .Q24H JAZMÍN 1 mls/hr Titration Protocol 1 UNITS/HR Labetalol HCl 20 mg 06/07/24 13:48 Labetalol Hcl Inj 100 Mg/20 Ml Vial IV PUSH Q4H PRN SBP > 160 and HR> 60 -1st choice Levothyroxine Sodium 225 mcg 06/08/24 06:30 06/08/24 05:27 Levothyroxine Sodium 75 Mcg Tablet PO 225 mcg DAILY@0630 JAZMÍN Administration Losartan Potassium 25 mg 06/08/24 09:00 06/08/24 08:31 Losartan Potassium 25 Mg Tablet PO 25 mg DAILY JAZMÍN Administration Metoprolol Succinate 25 mg 06/08/24 09:00 06/08/24 08:31 Metoprolol Succinate Ext Rel 25 Mg Tabcr PO 25 mg QAM JAZMÍN Administration Ondansetron HCl 4 mg 06/07/24 13:53 06/07/24 19:30 Ondansetron Inj 4 Mg/2 Ml Vial IV PUSH 4 mg Q4H PRN Administration Nausea And Vomiting Pantoprazole Sodium 40 mg 06/08/24 09:00 06/08/24 08:31 Pantoprazole 40 Mg Tablet PO 40 mg QAM JAZMÍN Administration Rosuvastatin Calcium 40 mg 06/08/24 09:00 06/08/24 08:42 Rosuvastatin 20 Mg Tablet PO 40 mg QAM JAZMÍN Administration Radiology Results: ITS Impressions Chest X-Ray 06/07/24 11:11 IMPRESSION: 1. Chronic mild left basilar atelectasis/scarring. No other acute cardiopulmonary disease. Head CT 06/07/24 12:48 IMPRESSION: No evidence for acute intracranial hemorrhage or calvarial fracture. Labs Labs: Laboratory Results - last 24 hr 06/07/24 06/07/24 06/07/24 10:29 10:36 11:53 WBC 7.0 RBC 4.88 Hgb 15.7 Hct 41.0 L MCV 84.0 MCH 32.2 MCHC 33.7 RDW 14.3 Plt Count 193 MPV 10.7 H Immature Gran % (Auto) 0.4 Neut % (Auto) 62.9 Lymph % (Auto) 28.9 [place] % (Auto) 4.9 Eos % (Auto) 1.9 Baso % (Auto) 1.0 Lymph # (Auto) 2.02 [place] # (Auto) 0.3 Eos # (Auto) 0.1 Baso # (Auto) 0.1 Abs Immat Gran (auto) 0.03 Absolute Neuts (auto) 4.4 Absolute Nucleated RBC 0.000 Band Neutrophils % Not Reportable Nucleated RBC % 0.0 Platelet Estimate Adequate Anisocytosis 1+ Rudy Cells 1+ Schistocytes None seen PT INR APTT VBG pH 7.289 L VBG pCO2 55.9 H VBG pO2 < 27.0 L VBG HCO3 26.2 O2 Delivery Device Room air O2 Liters/Min Not Reportable FiO2 21 Sodium 131 L Potassium 4.4 Chloride 98 Carbon Dioxide 18 L Anion Gap 15 H BUN 13 D Creatinine 1.10 Estim Creat Clear Calc 75 Estimated GFR > 60 Glucose 489 H POC Capillary Glucose > 500 H* Hemoglobin A1c Calcium 9.7 Phosphorus Magnesium Total Bilirubin 0.8 AST 32 ALT 62 H Alkaline Phosphatase 71 Troponin I Total Protein 7.0 Albumin 4.2 Triglycerides Lipase 121 TSH TSH (Reflex) Free T4 Urine Color Urine Appearance Urine pH Ur Specific [place] Urine Protein Urine Glucose (UA) Urine Ketones Ur Blood (Man) Urine Nitrate Urine Bilirubin Urine Urobilinogen Leukocyte Esterase Rfl Urine RBC Urine WBC Ur Squamous Epith Cells Urine Bacteria Urine Casts Nasal MRSA (PCR) 06/07/24 06/07/24 06/07/24 12:24 12:33 13:44 WBC RBC Hgb Hct MCV MCH MCHC RDW Plt Count MPV Immature Gran % (Auto) Neut % (Auto) Lymph % (Auto) [place] % (Auto) Eos % (Auto) Baso % (Auto) Lymph # (Auto) [place] # (Auto) Eos # (Auto) Baso # (Auto) Abs Immat Gran (auto) Absolute Neuts (auto) Absolute Nucleated RBC Band Neutrophils % Nucleated RBC % Platelet Estimate Anisocytosis Rudy Cells Schistocytes PT 11.5 INR 0.8 APTT 27.6 VBG pH VBG pCO2 VBG pO2 VBG HCO3 O2 Delivery Device O2 Liters/Min FiO2 Sodium Potassium Chloride Carbon Dioxide Anion Gap BUN Creatinine Estim Creat Clear Calc Estimated GFR Glucose POC Capillary Glucose 426 H Hemoglobin A1c Calcium Phosphorus Magnesium Total Bilirubin AST ALT Alkaline Phosphatase Troponin I 0.017 Total Protein Albumin Triglycerides Lipase TSH > 100.000 H TSH (Reflex) Free T4 Urine Color Urine Appearance Urine pH Ur Specific [place] Urine Protein Urine Glucose (UA) Urine Ketones Ur Blood (Man) Urine Nitrate Urine Bilirubin Urine Urobilinogen Leukocyte Esterase Rfl Urine RBC Urine WBC Ur Squamous Epith Cells Urine Bacteria Urine Casts Nasal MRSA (PCR) 06/07/24 06/07/24 06/07/24 14:07 14:52 14:58 WBC RBC Hgb Hct MCV MCH MCHC RDW Plt Count MPV Immature Gran % (Auto) Neut % (Auto) Lymph % (Auto) [place] % (Auto) Eos % (Auto) Baso % (Auto) Lymph # (Auto) [place] # (Auto) Eos # (Auto) Baso # (Auto) Abs Immat Gran (auto) Absolute Neuts (auto) Absolute Nucleated RBC Band Neutrophils % Nucleated RBC % Platelet Estimate Anisocytosis Lissette Cells Schistocytes PT INR APTT VBG pH VBG pCO2 VBG pO2 VBG HCO3 O2 Delivery Device O2 Liters/Min FiO2 Sodium Potassium Chloride Carbon Dioxide Anion Gap BUN Creatinine Estim Creat Clear Calc Estimated GFR Glucose POC Capillary Glucose 350 H Hemoglobin A1c 11.8 H Calcium Phosphorus Magnesium Total Bilirubin AST ALT Alkaline Phosphatase Troponin I Total Protein Albumin Triglycerides Lipase TSH TSH (Reflex) > 100.000 H Free T4 0.08 L Urine Color Yellow Urine Appearance Clear Urine pH 5.5 Ur Specific [place] 1.039 H Urine Protein 1+ H Urine Glucose (UA) 3+ H Urine Ketones Negative Ur Blood (Man) Negative Urine Nitrate Negative Urine Bilirubin Negative Urine Urobilinogen 0.2 Leukocyte Esterase Rfl Negative Urine RBC 0-2 Urine WBC 0-5 Ur Squamous Epith Cells None seen Urine Bacteria None seen Urine Casts 0-2 Nasal MRSA (PCR) 06/07/24 06/07/24 06/07/24 16:18 16:41 16:45 WBC RBC Hgb Hct MCV MCH MCHC RDW Plt Count MPV Immature Gran % (Auto) Neut % (Auto) Lymph % (Auto) [place] % (Auto) Eos % (Auto) Baso % (Auto) Lymph # (Auto) [place] # (Auto) Eos # (Auto) Baso # (Auto) Abs Immat Gran (auto) Absolute Neuts (auto) Absolute Nucleated RBC Band Neutrophils % Nucleated RBC % Platelet Estimate Anisocytosis Rudy Cells Schistocytes PT INR APTT VBG pH VBG pCO2 VBG pO2 VBG HCO3 O2 Delivery Device O2 Liters/Min FiO2 Sodium Cancelled Potassium Cancelled Chloride Cancelled Carbon Dioxide Cancelled Anion Gap Cancelled BUN Cancelled Creatinine Cancelled Estim Creat Clear Calc Cancelled Estimated GFR Cancelled Glucose Cancelled POC Capillary Glucose 396 H Hemoglobin A1c Calcium Cancelled Phosphorus Magnesium Total Bilirubin AST ALT Alkaline Phosphatase Troponin I Total Protein Albumin Triglycerides > 2625 H Lipase TSH TSH (Reflex) Free T4 Urine Color Urine Appearance Urine pH Ur Specific [place] Urine Protein Urine Glucose (UA) Urine Ketones Ur Blood (Man) Urine Nitrate Urine Bilirubin Urine Urobilinogen Leukocyte Esterase Rfl Urine RBC Urine WBC Ur Squamous Epith Cells Urine Bacteria Urine Casts Nasal MRSA (PCR) 06/07/24 06/07/24 06/07/24 17:25 18:41 20:03 WBC RBC Hgb Hct MCV MCH MCHC RDW Plt Count MPV Immature Gran % (Auto) Neut % (Auto) Lymph % (Auto) [place] % (Auto) Eos % (Auto) Baso % (Auto) Lymph # (Auto) [place] # (Auto) Eos # (Auto) Baso # (Auto) Abs Immat Gran (auto) Absolute Neuts (auto) Absolute Nucleated RBC Band Neutrophils % Nucleated RBC % Platelet Estimate Anisocytosis Rudy Cells Schistocytes PT INR APTT VBG pH VBG pCO2 VBG pO2 VBG HCO3 O2 Delivery Device O2 Liters/Min FiO2 Sodium Potassium Chloride Carbon Dioxide Anion Gap BUN Creatinine Estim Creat Clear Calc Estimated GFR Glucose POC Capillary Glucose 338 H 296 H 245 H Hemoglobin A1c Calcium Phosphorus Magnesium Total Bilirubin AST ALT Alkaline Phosphatase Troponin I Total Protein Albumin Triglycerides Lipase TSH TSH (Reflex) Free T4 Urine Color Urine Appearance Urine pH Ur Specific [place] Urine Protein Urine Glucose (UA) Urine Ketones Ur Blood (Man) Urine Nitrate Urine Bilirubin Urine Urobilinogen Leukocyte Esterase Rfl Urine RBC Urine WBC Ur Squamous Epith Cells Urine Bacteria Urine Casts Nasal MRSA (PCR) 06/07/24 06/07/24 06/07/24 21:01 21:35 21:53 WBC RBC Hgb Hct MCV MCH MCHC RDW Plt Count MPV Immature Gran % (Auto) Neut % (Auto) Lymph % (Auto) [place] % (Auto) Eos % (Auto) Baso % (Auto) Lymph # (Auto) [place] # (Auto) Eos # (Auto) Baso # (Auto) Abs Immat Gran (auto) Absolute Neuts (auto) Absolute Nucleated RBC Band Neutrophils % Nucleated RBC % Platelet Estimate Anisocytosis Rudy Cells Schistocytes PT INR APTT VBG pH VBG pCO2 VBG pO2 VBG HCO3 O2 Delivery Device O2 Liters/Min FiO2 Sodium Cancelled Potassium Cancelled Chloride Cancelled Carbon Dioxide Cancelled Anion Gap Cancelled BUN Cancelled Creatinine Cancelled Estim Creat Clear Calc Cancelled Estimated GFR Cancelled Glucose Cancelled POC Capillary Glucose 201 H Hemoglobin A1c Calcium Cancelled Phosphorus Cancelled Magnesium Cancelled Total Bilirubin AST ALT Alkaline Phosphatase Troponin I Total Protein Albumin Triglycerides Lipase TSH TSH (Reflex) Free T4 Urine Color Urine Appearance Urine pH Ur Specific [place] Urine Protein Urine Glucose (UA) Urine Ketones Ur Blood (Man) Urine Nitrate Urine Bilirubin Urine Urobilinogen Leukocyte Esterase Rfl Urine RBC Urine WBC Ur Squamous Epith Cells Urine Bacteria Urine Casts Nasal MRSA (PCR) Not detected 06/07/24 06/08/24 06/08/24 23:21 00:23 01:34 WBC RBC Hgb Hct MCV MCH MCHC RDW Plt Count MPV Immature Gran % (Auto) Neut % (Auto) Lymph % (Auto) [place] % (Auto) Eos % (Auto) Baso % (Auto) Lymph # (Auto) [place] # (Auto) Eos # (Auto) Baso # (Auto) Abs Immat Gran (auto) Absolute Neuts (auto) Absolute Nucleated RBC Band Neutrophils % Nucleated RBC % Platelet Estimate Anisocytosis Lissette Cells Schistocytes PT INR APTT VBG pH VBG pCO2 VBG pO2 VBG HCO3 O2 Delivery Device O2 Liters/Min FiO2 Sodium Potassium Chloride Carbon Dioxide Anion Gap BUN Creatinine Estim Creat Clear Calc Estimated GFR Glucose POC Capillary Glucose 144 H 135 H 132 H Hemoglobin A1c Calcium Phosphorus Magnesium Total Bilirubin AST ALT Alkaline Phosphatase Troponin I Total Protein Albumin Triglycerides Lipase TSH TSH (Reflex) Free T4 Urine Color Urine Appearance Urine pH Ur Specific [place] Urine Protein Urine Glucose (UA) Urine Ketones Ur Blood (Man) Urine Nitrate Urine Bilirubin Urine Urobilinogen Leukocyte Esterase Rfl Urine RBC Urine WBC Ur Squamous Epith Cells Urine Bacteria Urine Casts Nasal MRSA (PCR) 06/08/24 06/08/24 06/08/24 01:40 03:01 04:33 WBC RBC Hgb Hct MCV MCH MCHC RDW Plt Count MPV Immature Gran % (Auto) Neut % (Auto) Lymph % (Auto) [place] % (Auto) Eos % (Auto) Baso % (Auto) Lymph # (Auto) [place] # (Auto) Eos # (Auto) Baso # (Auto) Abs Immat Gran (auto) Absolute Neuts (auto) Absolute Nucleated RBC Band Neutrophils % Nucleated RBC % Platelet Estimate Anisocytosis Lissette Cells Schistocytes PT INR APTT VBG pH VBG pCO2 VBG pO2 VBG HCO3 O2 Delivery Device O2 Liters/Min FiO2 Sodium 134 L Potassium 3.7 Chloride 105 Carbon Dioxide 19 L Anion Gap 10 BUN 9 Creatinine 0.88 Estim Creat Clear Calc 89 Estimated GFR > 60 Glucose 138 H POC Capillary Glucose 144 H 175 H Hemoglobin A1c Calcium 8.6 Phosphorus Magnesium Total Bilirubin AST ALT Alkaline Phosphatase Troponin I Total Protein Albumin Triglycerides Lipase TSH TSH (Reflex) Free T4 Urine Color Urine Appearance Urine pH Ur Specific [place] Urine Protein Urine Glucose (UA) Urine Ketones Ur Blood (Man) Urine Nitrate Urine Bilirubin Urine Urobilinogen Leukocyte Esterase Rfl Urine RBC Urine WBC Ur Squamous Epith Cells Urine Bacteria Urine Casts Nasal MRSA (PCR) 06/08/24 06/08/24 06/08/24 05:46 06:18 06:39 WBC 9.5 RBC 4.72 Hgb 14.4 Hct 41.0 L MCV 86.9 MCH 30.5 D MCHC 35.1 RDW 14.3 Plt Count 164 MPV 10.9 H Immature Gran % (Auto) 0.2 Neut % (Auto) 60.1 Lymph % (Auto) 31.8 [place] % (Auto) 5.0 Eos % (Auto) 2.3 Baso % (Auto) 0.6 Lymph # (Auto) 3.01 [place] # (Auto) 0.5 Eos # (Auto) 0.2 Baso # (Auto) 0.1 Abs Immat Gran (auto) 0.02 Absolute Neuts (auto) 5.7 Absolute Nucleated RBC 0.000 Band Neutrophils % Nucleated RBC % 0.0 Platelet Estimate Anisocytosis Rudy Cells Schistocytes PT INR APTT VBG pH VBG pCO2 VBG pO2 VBG HCO3 O2 Delivery Device O2 Liters/Min FiO2 Sodium Potassium Chloride Carbon Dioxide Anion Gap BUN Creatinine Estim Creat Clear Calc Estimated GFR Glucose POC Capillary Glucose 173 H 181 H Hemoglobin A1c Calcium Phosphorus Magnesium Total Bilirubin AST ALT Alkaline Phosphatase Troponin I Total Protein Albumin Triglycerides Lipase TSH TSH (Reflex) Free T4 Urine Color Urine Appearance Urine pH Ur Specific [place] Urine Protein Urine Glucose (UA) Urine Ketones Ur Blood (Man) Urine Nitrate Urine Bilirubin Urine Urobilinogen Leukocyte Esterase Rfl Urine RBC Urine WBC Ur Squamous Epith Cells Urine Bacteria Urine Casts Nasal MRSA (PCR) 06/08/24 06/08/24 07:31 08:35 WBC RBC Hgb Hct MCV MCH MCHC RDW Plt Count MPV Immature Gran % (Auto) Neut % (Auto) Lymph % (Auto) [place] % (Auto) Eos % (Auto) Baso % (Auto) Lymph # (Auto) [place] # (Auto) Eos # (Auto) Baso # (Auto) Abs Immat Gran (auto) Absolute Neuts (auto) Absolute Nucleated RBC Band Neutrophils % Nucleated RBC % Platelet Estimate Anisocytosis Rudy Cells Schistocytes PT INR APTT VBG pH VBG pCO2 VBG pO2 VBG HCO3 O2 Delivery Device O2 Liters/Min FiO2 Sodium Potassium Chloride Carbon Dioxide Anion Gap BUN Creatinine Estim Creat Clear Calc Estimated GFR Glucose POC Capillary Glucose 188 H 200 H Hemoglobin A1c Calcium Phosphorus Magnesium Total Bilirubin AST ALT Alkaline Phosphatase Troponin I Total Protein Albumin Triglycerides Lipase TSH TSH (Reflex) Free T4 Urine Color Urine Appearance Urine pH Ur Specific [place] Urine Protein Urine Glucose (UA) Urine Ketones Ur Blood (Man) Urine Nitrate Urine Bilirubin Urine Urobilinogen Leukocyte Esterase Rfl Urine RBC Urine WBC Ur Squamous Epith Cells Urine Bacteria Urine Casts Nasal MRSA (PCR) Quality VTE Prophylaxis VTE prophylaxis: pharmacologic ordered
[2024-06-08 09:40] LABS: Alanine Aminotransferase 47 U/L (6-50); Albumin Level 3.5 g/dL (3.5-5.1); Alkaline Phosphatase 52 U/L (38-126); Anion Gap 9 mmol/L (4-12); Aspartate Amino Transferase 30 U/L (17-59); Bilirubin,Total 0.8 mg/dL (0.2-1.3); Blood Urea Nitrogen 9 mg/dL (9-20); Calcium 8.9 mg/dL (8.4-10.2); Carbon Dioxide 19 mmol/L (22-30); Cholesterol 293 mg/dL (0-200); Glucose 168 mg/dL (65-110); LDL Cholesterol Direct < 60 mg/dL; Potassium 4.2 mmol/L (3.4-5.0)
[2024-06-08 09:42] LABS: Triglycerides 1535 mg/dL (<150)
[2024-06-08 09:44] LABS: Glucose Point of Care 210 mg/dl (65-105)
--- NOTE | 2024-06-08 10:10 | P.PNIM_ITS ---
Progress Note: A&P Assessment and Plan (1) DKA (diabetic ketoacidosis): Code(s): E11.10 - Type 2 diabetes mellitus with ketoacidosis without coma Status: Acute Assessment and Plan: Patient admitted with DKA secondary to noncompliance. His iron gap has closed. He has hypertriglyceridemia for which insulin infusion will be continued Serial labs ordered Replace electrolytes as needed Start diet (2) Depression: Qualifiers: Depression Type: unspecified Qualified Code(s): F32.9 - Major depressive disorder, single episode, unspecified Code(s): F32.9 - Major depressive disorder, single episode, unspecified Status: Acute Assessment and Plan: Patient has history of depression now with suicidal ideation Sitter at bedside for one-to-one observation Suicide precautions Patient has not been taking his home medications for more than a month (3) CAD (coronary artery disease): Code(s): I25.10 - Atherosclerotic heart disease of [place] coronary artery without angina pectoris Status: Acute Assessment and Plan: History of coronary disease status post stent Continue aspirin beta-maulik statin and losartan (4) Hyperlipidemia: Qualifiers: Hyperlipidemia type: unspecified Qualified Code(s): E78.5 - Hyperlipidemia, unspecified Code(s): E78.5 - Hyperlipidemia, unspecified Status: Acute Assessment and Plan: Continue statin (5) Hypothyroidism: Code(s): E03.9 - Hypothyroidism, unspecified Status: Acute Assessment and Plan: TSH is high likely secondary to noncompliance as patient has not taken his thyroid pills for more than a month I have resumed his levothyroxine at home dose (6) JOSH (obstructive sleep apnea): Code(s): G47.33 - Obstructive sleep apnea (adult) (pediatric) Status: Acute Assessment and Plan: CPAP (7) Diabetic neuropathy: Code(s): E11.40 - Type 2 diabetes mellitus with diabetic neuropathy, unspecified Status: Acute Assessment and Plan: Continue Neurontin (8) Suicide ideation: Code(s): R45.851 - Suicidal ideations Status: Acute Assessment and Plan: One-to-one sitter Suicide precaution (9) Hypertriglyceridemia: Code(s): E78.1 - Pure hyperglyceridemia Status: Acute Assessment and Plan: Patient initial triglyceride check was> 2625 He was started insulin infusion for his DKA and triglyceride level today's 1535 He does not have any abdominal pain and slight his norm His triglyceride level is likely secondary to uncontrolled diabetes and untre ated hypothyroidism Continue insulin infusion, monitor triglyceride levels Continue statin, add fenofibrate and continue metformin Low-fat diet Subjective Date/time seen: 06/08/24 10:10 Interval history: Patient feels better. Advised on DM. Currently on Insulin drip due to TG. Review of Systems Review of Systems: 12 systems were reviewed and are negativ e except for as per HPI. All systems reviewed & are unremarkable except as noted in HPI and below (HPI) Exam Narrative: General: Pt is alert awake and in NAD Lungs/Chest: Trachea central Clear BS B/L, No crackles or wheezing. Cardiac: RRR. Normal S1 S2. No murmurs Circulation: Pedal pulses are intact and symmetrical. Abdomen: Normal bowel sounds. Obese. Soft. NT. ND. Extremities: No clubbing, cyanosis or edema. Warm : Johnson in place Neurologic: Follows commands. Moves all 4 extremities PERRL Skin: No Rash Psych: Normal speech, flat affect, admits to suicide ideation and also a suicide attempt when he was 16 years old Objective Data Vital Signs Vital Signs: Vital Signs - 24 hr 06/07/24 12:02 06/07/24 13:52 06/07/24 14:52 Temperature Pulse Rate 57 L 54 L 54 L Respiratory Rate 16 16 16 Blood Pressure 179/92 H 159/89 H 160/87 H Pulse Oximetry 99 99 100 Oxygen Delivery 06/07/24 15:33 06/07/24 16:00 06/07/24 16:00 Temperature Pulse Rate 54 L 54 L Respiratory Rate 16 Blood Pressure 175/87 H Pulse Oximetry 100 Oxygen Delivery Room Air 06/07/24 16:00 06/07/24 18:00 06/07/24 18:00 Temperature Pulse Rate 54 L 58 L 59 L Respiratory Rate 9 L 11 L Blood Pressure 175/87 H 153/78 H Pulse Oximetry 100 98 Oxygen Delivery 06/07/24 19:54 06/07/24 20:00 06/07/24 20:03 Temperature Pulse Rate 59 L 60 63 Respiratory Rate 14 14 Blood Pressure 126/74 Pulse Oximetry 98 94 Oxygen Delivery Room Air 06/07/24 22:00 06/07/24 22:01 06/07/24 22:30 Temperature Pulse Rate 58 L 52 L 59 L Respiratory Rate 15 20 Blood Pressure 149/84 H Pulse Oximetry 95 94 Oxygen Delivery CPAP 06/07/24 22:30 06/08/24 00:00 06/08/24 00:00 Temperature 98.5 F Pulse Rate 59 L 59 L 58 L Respiratory Rate 13 14 15 Blood Pressure 135/72 Pulse Oximetry 94 95 96 Oxygen Delivery Autopap Autopap 06/08/24 00:00 06/08/24 02:00 06/08/24 02:00 Temperature Pulse Rate 62 56 L 56 L Respiratory Rate 13 Blood Pressure 115/71 Pulse Oximetry 96 Oxygen Delivery 06/08/24 02:48 06/08/24 03:44 06/08/24 04:00 Temperature Pulse Rate 57 L 57 L 56 L Respiratory Rate 11 L 16 Blood Pressure Pulse Oximetry 96 93 Oxygen Delivery Autopap Autopap 06/08/24 04:00 06/08/24 06:00 06/08/24 06:00 Temperature 98.6 F Pulse Rate 56 L 51 L 51 L Respiratory Rate 13 14 Blood Pressure 109/63 126/70 Pulse Oximetry 99 100 Oxygen Delivery 06/08/24 08:00 06/08/24 08:00 06/08/24 08:00 Temperature Pulse Rate 50 L 50 L 50 L Respiratory Rate 15 15 Blood Pressure 147/79 H Pulse Oximetry 100 98 Oxygen Delivery Autopap 06/08/24 08:31 Temperature Pulse Rate 51 L Respiratory Rate Blood Pressure Pulse Oximetry Oxygen Delivery Intake/Output Intake/Output: Intake & Output 06/05/24 06/06/24 06/07/24 06/08/24 23:59 23:59 23:59 23:59 Intake Total 2794.8 975.9 Output Total 800 380 Balance 1994.8 595.9 Meds/Results Medications: Active Medications Generic Name Dose Route Start Last Admin Trade Name Freq PRN Reason Stop Dose Admin Aspirin 81 mg 06/08/24 09:00 06/08/24 08:31 Aspirin 81 Mg Enteric Tablet PO 81 mg QAM JAZMÍN Administration Dextrose 12.5 gm 06/07/24 13:12 Dextrose 50% 25 Gm/50 Ml Syringe IV PUSH PRN PRN Hypoglycemia Protocol Enoxaparin Sodium 40 mg 06/08/24 09:00 06/08/24 08:32 Enoxaparin 40 Mg/0.4 Ml Syringe SUB-Q 40 mg DAILY JAZMÍN Administration Fenofibrate 145 mg 06/08/24 09:45 Fenofibrate Nanocrystallized 145 Mg Tablet PO QAM JAZMÍN Gabapentin 800 mg 06/07/24 17:00 06/08/24 08:31 Gabapentin 400 Mg Capsule PO 800 mg TID JAZMÍN Administration Glucagon 1 mg 06/07/24 13:12 Glucagon For Inj 1 Mg Vial IM PRN PRN Hypoglycemia Protocol Glucose 15 gm 06/07/24 13:12 Glucose Oral Gel 15 Gm Of Glucse In 37.5 Gm Tube PO PRN PRN Hypoglycemia Protocol Sodium Chloride 1,000 mls @ 150 mls/hr 06/07/24 13:15 06/07/24 20:20 Normal Saline Iv IV CONT 0 mls/hr .Q6H40M JAZMÍN Infusion Dextrose 1,000 mls @ 100 mls/hr 06/07/24 13:12 Dextrose 5% 1,000 Ml IVPB PRN PRN Hypoglycemia Protocol Potassium Chloride/Dextrose/Sod Cl 1,000 mls @ 150 mls/hr 06/07/24 13:45 06/08/24 02:46 Kcl 20 Meq/D5/0.45% Sod Chl IV CONT 150 mls/hr .Q6H40M JAZMÍN Administration Dextrose/Sodium Chloride 1,000 mls @ 150 mls/hr 06/07/24 13:45 Dextrose 5% Sodium Chloride 0.45% IV CONT .Q6H40M JAZMÍN Insulin Human Regular 100 100 mls @ 1 mls/hr 06/07/24 13:45 06/08/24 10:09 units/ Sodium Chloride IV CONT 1 units/hr .Q24H JAZMÍN 1 mls/hr Titration Protocol 1 UNITS/HR Labetalol HCl 20 mg 06/07/24 13:48 Labetalol Hcl Inj 100 Mg/20 Ml Vial IV PUSH Q4H PRN SBP > 160 and HR> 60 -1st choice Levothyroxine Sodium 225 mcg 06/08/24 06:30 06/08/24 05:27 Levothyroxine Sodium 75 Mcg Tablet PO 225 mcg DAILY@0630 JAZMÍN Administration Losartan Potassium 25 mg 06/08/24 09:00 06/08/24 08:31 Losartan Potassium 25 Mg Tablet PO 25 mg DAILY JAZMÍN Administration Metformin HCl 500 mg 06/08/24 17:00 Metformin Hcl 500 Mg Tablet PO BIDWM JAZMÍN Metoprolol Succinate 25 mg 06/08/24 09:00 06/08/24 08:31 Metoprolol Succinate Ext Rel 25 Mg Tabcr PO 25 mg QAM JAZMÍN Administration Ondansetron HCl 4 mg 06/07/24 13:53 06/07/24 19:30 Ondansetron Inj 4 Mg/2 Ml Vial IV PUSH 4 mg Q4H PRN Administration Nausea And Vomiting Pantoprazole Sodium 40 mg 06/08/24 09:00 06/08/24 08:31 Pantoprazole 40 Mg Tablet PO 40 mg QAM JAZMÍN Administration Rosuvastatin Calcium 40 mg 06/08/24 09:00 06/08/24 08:42 Rosuvastatin 20 Mg Tablet PO 40 mg QAM JAZMÍN Administration Radiology Results: ITS Impressions Chest X-Ray 06/07/24 11:11 IMPRESSION: 1. Chronic mild left basilar atelectasis/scarring. No other acute cardiopulmonary disease. Head CT 06/07/24 12:48 IMPRESSION: No evidence for acute intracranial hemorrhage or calvarial fracture. Labs Labs: Laboratory Results - last 24 hr 06/07/24 06/07/24 06/07/24 10:29 10:36 11:53 WBC 7.0 RBC 4.88 Hgb 15.7 Hct 41.0 L MCV 84.0 MCH 32.2 MCHC 33.7 RDW 14.3 Plt Count 193 MPV 10.7 H Immature Gran % (Auto) 0.4 Neut % (Auto) 62.9 Lymph % (Auto) 28.9 [place] % (Auto) 4.9 Eos % (Auto) 1.9 Baso % (Auto) 1.0 Lymph # (Auto) 2.02 [place] # (Auto) 0.3 Eos # (Auto) 0.1 Baso # (Auto) 0.1 Abs Immat Gran (auto) 0.03 Absolute Neuts (auto) 4.4 Absolute Nucleated RBC 0.000 Band Neutrophils % Not Reportable Nucleated RBC % 0.0 Platelet Estimate Adequate Anisocytosis 1+ [place] Cells 1+ Schistocytes None seen PT INR APTT VBG pH 7.289 L VBG pCO2 55.9 H VBG pO2 < 27.0 L VBG HCO3 26.2 O2 Delivery Device Room air O2 Liters/Min Not Reportable FiO2 21 Sodium 131 L Potassium 4.4 Chloride 98 Carbon Dioxide 18 L Anion Gap 15 H BUN 13 D Creatinine 1.10 Estim Creat Clear Calc 75 Estimated GFR > 60 Glucose 489 H POC Capillary Glucose > 500 H* Hemoglobin A1c Calcium 9.7 Phosphorus Magnesium Total Bilirubin 0.8 AST 32 ALT 62 H Alkaline Phosphatase 71 Troponin I Total Protein 7.0 Albumin 4.2 Triglycerides Cholesterol LDL Cholesterol Direct HDL Direct Lipase 121 TSH TSH (Reflex) Free T4 Urine Color Urine Appearance Urine pH Ur Specific [place] Urine Protein Urine Glucose (UA) Urine Ketones Ur Blood (Man) Urine Nitrate Urine Bilirubin Urine Urobilinogen Leukocyte Esterase Rfl Urine RBC Urine WBC Ur Squamous Epith Cells Urine Bacteria Urine Casts Nasal MRSA (PCR) 06/07/24 06/07/24 06/07/24 12:24 12:33 13:44 WBC RBC Hgb Hct MCV MCH MCHC RDW Plt Count MPV Immature Gran % (Auto) Neut % (Auto) Lymph % (Auto) [place] % (Auto) Eos % (Auto) Baso % (Auto) Lymph # (Auto) [place] # (Auto) Eos # (Auto) Baso # (Auto) Abs Immat Gran (auto) Absolute Neuts (auto) Absolute Nucleated RBC Band Neutrophils % Nucleated RBC % Platelet Estimate Anisocytosis [place] Cells Schistocytes PT 11.5 INR 0.8 APTT 27.6 VBG pH VBG pCO2 VBG pO2 VBG HCO3 O2 Delivery Device O2 Liters/Min FiO2 Sodium Potassium Chloride Carbon Dioxide Anion Gap BUN Creatinine Estim Creat Clear Calc Estimated GFR Glucose POC Capillary Glucose 426 H Hemoglobin A1c Calcium Phosphorus Magnesium Total Bilirubin AST ALT Alkaline Phosphatase Troponin I 0.017 Total Protein Albumin Triglycerides Cholesterol LDL Cholesterol Direct HDL Direct Lipase TSH > 100.000 H TSH (Reflex) Free T4 Urine Color Urine Appearance Urine pH Ur Specific [place] Urine Protein Urine Glucose (UA) Urine Ketones Ur Blood (Man) Urine Nitrate Urine Bilirubin Urine Urobilinogen Leukocyte Esterase Rfl Urine RBC Urine WBC Ur Squamous Epith Cells Urine Bacteria Urine Casts Nasal MRSA (PCR) 06/07/24 06/07/24 06/07/24 14:07 14:52 14:58 WBC RBC Hgb Hct MCV MCH MCHC RDW Plt Count MPV Immature Gran % (Auto) Neut % (Auto) Lymph % (Auto) [place] % (Auto) Eos % (Auto) Baso % (Auto) Lymph # (Auto) [place] # (Auto) Eos # (Auto) Baso # (Auto) Abs Immat Gran (auto) Absolute Neuts (auto) Absolute Nucleated RBC Band Neutrophils % Nucleated RBC % Platelet Estimate Anisocytosis [place] Cells Schistocytes PT INR APTT VBG pH VBG pCO2 VBG pO2 VBG HCO3 O2 Delivery Device O2 Liters/Min FiO2 Sodium Potassium Chloride Carbon Dioxide Anion Gap BUN Creatinine Estim Creat Clear Calc Estimated GFR Glucose POC Capillary Glucose 350 H Hemoglobin A1c 11.8 H Calcium Phosphorus Magnesium Total Bilirubin AST ALT Alkaline Phosphatase Troponin I Total Protein Albumin Triglycerides Cholesterol LDL Cholesterol Direct HDL Direct Lipase TSH TSH (Reflex) > 100.000 H Free T4 0.08 L Urine Color Yellow Urine Appearance Clear Urine pH 5.5 Ur Specific [place] 1.039 H Urine Protein 1+ H Urine Glucose (UA) 3+ H Urine Ketones Negative Ur Blood (Man) Negative Urine Nitrate Negative Urine Bilirubin Negative Urine Urobilinogen 0.2 Leukocyte Esterase Rfl Negative Urine RBC 0-2 Urine WBC 0-5 Ur Squamous Epith Cells None seen Urine Bacteria None seen Urine Casts 0-2 Nasal MRSA (PCR) 06/07/24 06/07/24 06/07/24 16:18 16:41 16:45 WBC RBC Hgb Hct MCV MCH MCHC RDW Plt Count MPV Immature Gran % (Auto) Neut % (Auto) Lymph % (Auto) [place] % (Auto) Eos % (Auto) Baso % (Auto) Lymph # (Auto) [place] # (Auto) Eos # (Auto) Baso # (Auto) Abs Immat Gran (auto) Absolute Neuts (auto) Absolute Nucleated RBC Band Neutrophils % Nucleated RBC % Platelet Estimate Anisocytosis [place] Cells Schistocytes PT INR APTT VBG pH VBG pCO2 VBG pO2 VBG HCO3 O2 Delivery Device O2 Liters/Min FiO2 Sodium Cancelled Potassium Cancelled Chloride Cancelled Carbon Dioxide Cancelled Anion Gap Cancelled BUN Cancelled Creatinine Cancelled Estim Creat Clear Calc Cancelled Estimated GFR Cancelled Glucose Cancelled POC Capillary Glucose 396 H Hemoglobin A1c Calcium Cancelled Phosphorus Magnesium Total Bilirubin AST ALT Alkaline Phosphatase Troponin I Total Protein Albumin Triglycerides > 2625 H Cholesterol LDL Cholesterol Direct HDL Direct Lipase TSH TSH (Reflex) Free T4 Urine Color Urine Appearance Urine pH Ur Specific [place] Urine Protein Urine Glucose (UA) Urine Ketones Ur Blood (Man) Urine Nitrate Urine Bilirubin Urine Urobilinogen Leukocyte Esterase Rfl Urine RBC Urine WBC Ur Squamous Epith Cells Urine Bacteria Urine Casts Nasal MRSA (PCR) 06/07/24 06/07/24 06/07/24 17:25 18:41 20:03 WBC RBC Hgb Hct MCV MCH MCHC RDW Plt Count MPV Immature Gran % (Auto) Neut % (Auto) Lymph % (Auto) [place] % (Auto) Eos % (Auto) Baso % (Auto) Lymph # (Auto) [place] # (Auto) Eos # (Auto) Baso # (Auto) Abs Immat Gran (auto) Absolute Neuts (auto) Absolute Nucleated RBC Band Neutrophils % Nucleated RBC % Platelet Estimate Anisocytosis [place] Cells Schistocytes PT INR APTT VBG pH VBG pCO2 VBG pO2 VBG HCO3 O2 Delivery Device O2 Liters/Min FiO2 Sodium Potassium Chloride Carbon Dioxide Anion Gap BUN Creatinine Estim Creat Clear Calc Estimated GFR Glucose POC Capillary Glucose 338 H 296 H 245 H Hemoglobin A1c Calcium Phosphorus Magnesium Total Bilirubin AST ALT Alkaline Phosphatase Troponin I Total Protein Albumin Triglycerides Cholesterol LDL Cholesterol Direct HDL Direct Lipase TSH TSH (Reflex) Free T4 Urine Color Urine Appearance Urine pH Ur Specific [place] Urine Protein Urine Glucose (UA) Urine Ketones Ur Blood (Man) Urine Nitrate Urine Bilirubin Urine Urobilinogen Leukocyte Esterase Rfl Urine RBC Urine WBC Ur Squamous Epith Cells Urine Bacteria Urine Casts Nasal MRSA (PCR) 06/07/24 06/07/24 06/07/24 21:01 21:35 21:53 WBC RBC Hgb Hct MCV MCH MCHC RDW Plt Count MPV Immature Gran % (Auto) Neut % (Auto) Lymph % (Auto) [place] % (Auto) Eos % (Auto) Baso % (Auto) Lymph # (Auto) [place] # (Auto) Eos # (Auto) Baso # (Auto) Abs Immat Gran (auto) Absolute Neuts (auto) Absolute Nucleated RBC Band Neutrophils % Nucleated RBC % Platelet Estimate Anisocytosis [place] Cells Schistocytes PT INR APTT VBG pH VBG pCO2 VBG pO2 VBG HCO3 O2 Delivery Device O2 Liters/Min FiO2 Sodium Cancelled Potassium Cancelled Chloride Cancelled Carbon Dioxide Cancelled Anion Gap Cancelled BUN Cancelled Creatinine Cancelled Estim Creat Clear Calc Cancelled Estimated GFR Cancelled Glucose Cancelled POC Capillary Glucose 201 H Hemoglobin A1c Calcium Cancelled Phosphorus Cancelled Magnesium Cancelled Total Bilirubin AST ALT Alkaline Phosphatase Troponin I Total Protein Albumin Triglycerides Cholesterol LDL Cholesterol Direct HDL Direct Lipase TSH TSH (Reflex) Free T4 Urine Color Urine Appearance Urine pH Ur Specific [place] Urine Protein Urine Glucose (UA) Urine Ketones Ur Blood (Man) Urine Nitrate Urine Bilirubin Urine Urobilinogen Leukocyte Esterase Rfl Urine RBC Urine WBC Ur Squamous Epith Cells Urine Bacteria Urine Casts Nasal MRSA (PCR) Not detected 06/07/24 06/08/24 06/08/24 23:21 00:23 01:34 WBC RBC Hgb Hct MCV MCH MCHC RDW Plt Count MPV Immature Gran % (Auto) Neut % (Auto) Lymph % (Auto) [place] % (Auto) Eos % (Auto) Baso % (Auto) Lymph # (Auto) [place] # (Auto) Eos # (Auto) Baso # (Auto) Abs Immat Gran (auto) Absolute Neuts (auto) Absolute Nucleated RBC Band Neutrophils % Nucleated RBC % Platelet Estimate Anisocytosis [place] Cells Schistocytes PT INR APTT VBG pH VBG pCO2 VBG pO2 VBG HCO3 O2 Delivery Device O2 Liters/Min FiO2 Sodium Potassium Chloride Carbon Dioxide Anion Gap BUN Creatinine Estim Creat Clear Calc Estimated GFR Glucose POC Capillary Glucose 144 H 135 H 132 H Hemoglobin A1c Calcium Phosphorus Magnesium Total Bilirubin AST ALT Alkaline Phosphatase Troponin I Total Protein Albumin Triglycerides Cholesterol LDL Cholesterol Direct HDL Direct Lipase TSH TSH (Reflex) Free T4 Urine Color Urine Appearance Urine pH Ur Specific [place] Urine Protein Urine Glucose (UA) Urine Ketones Ur Blood (Man) Urine Nitrate Urine Bilirubin Urine Urobilinogen Leukocyte Esterase Rfl Urine RBC Urine WBC Ur Squamous Epith Cells Urine Bacteria Urine Casts Nasal MRSA (PCR) 06/08/24 06/08/24 06/08/24 01:40 03:01 04:33 WBC RBC Hgb Hct MCV MCH MCHC RDW Plt Count MPV Immature Gran % (Auto) Neut % (Auto) Lymph % (Auto) [place] % (Auto) Eos % (Auto) Baso % (Auto) Lymph # (Auto) [place] # (Auto) Eos # (Auto) Baso # (Auto) Abs Immat Gran (auto) Absolute Neuts (auto) Absolute Nucleated RBC Band Neutrophils % Nucleated RBC % Platelet Estimate Anisocytosis [place] Cells Schistocytes PT INR APTT VBG pH VBG pCO2 VBG pO2 VBG HCO3 O2 Delivery Device O2 Liters/Min FiO2 Sodium 134 L Potassium 3.7 Chloride 105 Carbon Dioxide 19 L Anion Gap 10 BUN 9 Creatinine 0.88 Estim Creat Clear Calc 89 Estimated GFR > 60 Glucose 138 H POC Capillary Glucose 144 H 175 H Hemoglobin A1c Calcium 8.6 Phosphorus Magnesium Total Bilirubin AST ALT Alkaline Phosphatase Troponin I Total Protein Albumin Triglycerides Cholesterol LDL Cholesterol Direct HDL Direct Lipase TSH TSH (Reflex) Free T4 Urine Color Urine Appearance Urine pH Ur Specific [place] Urine Protein Urine Glucose (UA) Urine Ketones Ur Blood (Man) Urine Nitrate Urine Bilirubin Urine Urobilinogen Leukocyte Esterase Rfl Urine RBC Urine WBC Ur Squamous Epith Cells Urine Bacteria Urine Casts Nasal MRSA (PCR) 06/08/24 06/08/24 06/08/24 05:46 06:18 06:39 WBC 9.5 RBC 4.72 Hgb 14.4 Hct 41.0 L MCV 86.9 MCH 30.5 D MCHC 35.1 RDW 14.3 Plt Count 164 MPV 10.9 H Immature Gran % (Auto) 0.2 Neut % (Auto) 60.1 Lymph % (Auto) 31.8 [place] % (Auto) 5.0 Eos % (Auto) 2.3 Baso % (Auto) 0.6 Lymph # (Auto) 3.01 [place] # (Auto) 0.5 Eos # (Auto) 0.2 Baso # (Auto) 0.1 Abs Immat Gran (auto) 0.02 Absolute Neuts (auto) 5.7 Absolute Nucleated RBC 0.000 Band Neutrophils % Nucleated RBC % 0.0 Platelet Estimate Anisocytosis [place] Cells Schistocytes PT INR APTT VBG pH VBG pCO2 VBG pO2 VBG HCO3 O2 Delivery Device O2 Liters/Min FiO2 Sodium 134 L Potassium 4.2 Chloride 106 Carbon Dioxide 19 L Anion Gap 9 BUN 9 Creatinine 1.09 Estim Creat Clear Calc 73 Estimated GFR > 60 Glucose 168 H POC Capillary Glucose 173 H 181 H Hemoglobin A1c Calcium 8.9 Phosphorus Magnesium 1.5 L Total Bilirubin 0.8 AST 30 ALT 47 Alkaline Phosphatase 52 Troponin I Total Protein 6.0 L Albumin 3.5 Triglycerides 1535 H Cholesterol 293 H LDL Cholesterol Direct < 60 HDL Direct TNP Lipase TSH TSH (Reflex) Free T4 Urine Color Urine Appearance Urine pH Ur Specific [place] Urine Protein Urine Glucose (UA) Urine Ketones Ur Blood (Man) Urine Nitrate Urine Bilirubin Urine Urobilinogen Leukocyte Esterase Rfl Urine RBC Urine WBC Ur Squamous Epith Cells Urine Bacteria Urine Casts Nasal MRSA (PCR) 06/08/24 06/08/24 06/08/24 07:31 08:35 09:32 WBC RBC Hgb Hct MCV MCH MCHC RDW Plt Count MPV Immature Gran % (Auto) Neut % (Auto) Lymph % (Auto) [place] % (Auto) Eos % (Auto) Baso % (Auto) Lymph # (Auto) [place] # (Auto) Eos # (Auto) Baso # (Auto) Abs Immat Gran (auto) Absolute Neuts (auto) Absolute Nucleated RBC Band Neutrophils % Nucleated RBC % Platelet Estimate Anisocytosis [place] Cells Schistocytes PT INR APTT VBG pH VBG pCO2 VBG pO2 VBG HCO3 O2 Delivery Device O2 Liters/Min FiO2 Sodium Potassium Chloride Carbon Dioxide Anion Gap BUN Creatinine Estim Creat Clear Calc Estimated GFR Glucose POC Capillary Glucose 188 H 200 H 210 H Hemoglobin A1c Calcium Phosphorus Magnesium Total Bilirubin AST ALT Alkaline Phosphatase Troponin I Total Protein Albumin Triglycerides Cholesterol LDL Cholesterol Direct HDL Direct Lipase TSH TSH (Reflex) Free T4 Urine Color Urine Appearance Urine pH Ur Specific [place] Urine Protein Urine Glucose (UA) Urine Ketones Ur Blood (Man) Urine Nitrate Urine Bilirubin Urine Urobilinogen Leukocyte Esterase Rfl Urine RBC Urine WBC Ur Squamous Epith Cells Urine Bacteria Urine Casts Nasal MRSA (PCR) Quality VTE Prophylaxis VTE prophylaxis: pharmacologic ordered Hospitalist MIPS Advance Care Plan I have confirmed that the patient's Advanced Care Plan is present, code status is documented, or surrogate decision maker is listed in patient medical record.: Yes Medication Reconciliation I have utilized all available resources to obtain, update and review the patients current medications (includes all prescriptions, OTC, herbals, cannabis, and nutritional supplements).: Yes
[2024-06-08] MEDS: FENOFIBRATE NANOCRYSTALLIZED 145 MG TABLET PO (10:12)
[2024-06-08 10:37] LABS: Glucose Point of Care 178 mg/dl (65-105)
[2024-06-08 11:35] LABS: Anion Gap 12 mmol/L (4-12); Blood Urea Nitrogen 8 mg/dL (9-20); Calcium 8.8 mg/dL (8.4-10.2); Carbon Dioxide 19 mmol/L (22-30); Chloride 102 mmol/L (98-107); Estimated CRCL calculation 75 ml/min; Estimated Glomerular Filt Rate > 60; Glucose 187 mg/dL (65-110); Potassium 4.1 mmol/L (3.4-5.0); Sodium 133 mmol/L (137-145)
[2024-06-08 12:00] LABS: Glucose Point of Care 199 mg/dl (65-105)
[2024-06-08 13:43] LABS: Glucose Point of Care 207 mg/dl (65-105)
[2024-06-08 14:46] LABS: Glucose Point of Care 276 mg/dl (65-105)
[2024-06-08 15:08] LABS: Anion Gap 13 mmol/L (4-12); Blood Urea Nitrogen 6 mg/dL (9-20); Calcium 7.9 mg/dL (8.4-10.2); Carbon Dioxide 16 mmol/L (22-30); Chloride 102 mmol/L (98-107); Estimated CRCL calculation 78 ml/min; Estimated Glomerular Filt Rate > 60; Glucose 268 mg/dL (65-110); Potassium 4.2 mmol/L (3.4-5.0); Sodium 131 mmol/L (137-145)
[2024-06-08 15:36] LABS: Glucose Point of Care 288 mg/dl (65-105)
[2024-06-08] MEDS: metFORMIN HCL 500 MG TABLET PO (16:31)
[2024-06-08 16:35] LABS: Glucose Point of Care 275 mg/dl (65-105)
[2024-06-08 17:37] LABS: Glucose Point of Care 277 mg/dl (65-105)
[2024-06-08 18:53] LABS: Glucose Point of Care 269 mg/dl (65-105)
[2024-06-08 20:26] LABS: Glucose Point of Care 314 mg/dl (65-105)
[2024-06-08 20:26] LABS: Glucose Point of Care 328 mg/dl (65-105)
[2024-06-08 21:31] LABS: Glucose Point of Care 323 mg/dl (65-105)
[2024-06-08 23:15] LABS: Anion Gap 10 mmol/L (4-12); Blood Urea Nitrogen 6 mg/dL (9-20); Calcium 8.1 mg/dL (8.4-10.2); Carbon Dioxide 20 mmol/L (22-30); Chloride 100 mmol/L (98-107); Estimated CRCL calculation 66 ml/min; Estimated Glomerular Filt Rate > 60; Glucose 271 mg/dL (65-110); Potassium 4.3 mmol/L (3.4-5.0); Sodium 130 mmol/L (137-145)
[2024-06-08 23:44] LABS: Glucose Point of Care 248 mg/dl (65-105)
[2024-06-08 23:44] LABS: Glucose Point of Care 321 mg/dl (65-105)
[2024-06-09] VITALS (20 sets, daily range): BP systolic 99–149; BP diastolic 62–88; PULSE 14–82; RESP 9–60; TEMP 36.4–37; O2SAT 95–100; BMI 33.8
[2024-06-09 00:48] LABS: Glucose Point of Care 251 mg/dl (65-105)
[2024-06-09 01:54] LABS: Glucose Point of Care 223 mg/dl (65-105)
[2024-06-09 03:33] LABS: Glucose Point of Care 232 mg/dl (65-105)
[2024-06-09 03:48] LABS: Basophils Absolute Auto 0.1 K/mm3 (0.0-0.1); Basophils Percent Auto 0.8 % (0.2-1.2); Eosinophils Absolute Auto 0.3 K/mm3 (0-0.3); Eosinophils Percent Auto 3.5 % (0-4.4); Hematocrit 36.5 % (42.0-52.0); Hemoglobin 12.8 g/dL (14.0-18.0); Immature Granulocyte Absolute 0.02 K/mm3 (0.00-0.031); Immature Granulocyte Percent A 0.3 % (0-0.5); Lymphocytes Absolute Auto 2.95 K/mm3 (0.9-3.2); Mean Corpuscular HGB Conc 35.1 g/dl (32-36); Mean Corpuscular Hemoglobin 29.6 pg (26-34); Mean Corpuscular Volume 84.5 fl (80-100); Mean Platelet Volume 10.9 fl (7.4-10.4); Monocytes Absolute Auto 0.4 K/mm3 (0.1-0.6); Neutrophils Absolute Auto 3.6 K/mm3 (1.3-6.7); Neutrophils Percent Auto 49.4 % (45.5-73.1); Platelet Count Result 168 k/mm3 (150-375); Red Blood Count 4.32 M/mm3 (4.6-6.20); Red Cell Distribution Width 14.6 % (11.5-14.5); White Blood Count 7.2 K/mm3 (4.5-10.0)
[2024-06-09 04:01] LABS: Alanine Aminotransferase 34 U/L (6-50); Alkaline Phosphatase 42 U/L (38-126); Anion Gap 9 mmol/L (4-12); Aspartate Amino Transferase 24 U/L (17-59); Bilirubin,Total 0.5 mg/dL (0.2-1.3); Blood Urea Nitrogen 7 mg/dL (9-20); Calcium 8.4 mg/dL (8.4-10.2); Carbon Dioxide 18 mmol/L (22-30); Chloride 104 mmol/L (98-107); Estimated CRCL calculation 68 ml/min; Estimated Glomerular Filt Rate > 60; Glucose 207 mg/dL (65-110); Magnesium 1.2 mg/dL (1.6-2.3); Sodium 131 mmol/L (137-145)
[2024-06-09 04:03] LABS: Potassium 4.1 mmol/L (3.4-5.0)
[2024-06-09] MEDS: INSULIN HUMAN REGULAR (*BKC) 100 UNITS in SODIUM CHLORIDE 0.9% IV 99 ML 8 UNITS IV CONT (04:32)
[2024-06-09 04:36] LABS: Glucose Point of Care 232 mg/dl (65-105)
[2024-06-09] MEDS: KCL 20 MEQ/D5/0.45% SOD CHL 1,000 ML 150 ML IV CONT ×2 (06:38→17:51)
[2024-06-09] MEDS: LEVOTHYROXINE SODIUM 75 MCG TABLET 225 MCG PO (06:38)
[2024-06-09 06:48] LABS: Glucose Point of Care 145 mg/dl (65-105)
[2024-06-09 06:48] LABS: Glucose Point of Care 164 mg/dl (65-105)
[2024-06-09 07:42] LABS: Glucose Point of Care 170 mg/dl (65-105)
[2024-06-09] MEDS: MAGNESIUM SULFATE 3GM/D5W100ML 3 GM/100 ML BAG IVPB (07:57)
[2024-06-09] MEDS: metFORMIN HCL 500 MG TABLET PO ×2 (07:58→17:51)
[2024-06-09] MEDS: GABAPENTIN 400 MG CAPSULE 800 MG PO ×3 (07:59→17:51)
[2024-06-09] MEDS: ASPIRIN 81 MG ENTERIC TABLET PO (08:01)
[2024-06-09] MEDS: FENOFIBRATE NANOCRYSTALLIZED 145 MG TABLET PO (08:02)
[2024-06-09] MEDS: ENOXAPARIN 40 MG/0.4 ML SYRINGE SUB-Q (08:02)
[2024-06-09] MEDS: LOSARTAN POTASSIUM 25 MG TABLET PO (08:02)
[2024-06-09] MEDS: ROSUVASTATIN 20 MG TABLET 40 MG PO (08:03)
[2024-06-09] MEDS: PANTOPRAZOLE 40 MG TABLET PO (08:03)
[2024-06-09 08:29] LABS: Anion Gap 10 mmol/L (4-12); Blood Urea Nitrogen 8 mg/dL (9-20); Calcium 8.5 mg/dL (8.4-10.2); Carbon Dioxide 19 mmol/L (22-30); Chloride 103 mmol/L (98-107); Estimated CRCL calculation 66 ml/min; Estimated Glomerular Filt Rate 59; Glucose 158 mg/dL (65-110); Potassium 4.8 mmol/L (3.4-5.0); Sodium 132 mmol/L (137-145)
--- NOTE | 2024-06-09 08:39 | WPDINTPN ---
Progress Note: A&P Assessment and Plan (1) DKA (diabetic ketoacidosis): Code(s): E11.10 - Type 2 diabetes mellitus with ketoacidosis without coma Status: Acute Assessment and Plan: Patient admitted with DKA secondary to noncompliance. Remains acidotic anion gap has closed, but blood sugars remain elevated and patient is on insulin infusion and 8 units/hour Patient with hypertriglyceridemia for which the insulin infusion is being continued Serial labs ordered Replace magnesium and other electrolytes Patient on diabetic and low-fat diet (2) Depression: Qualifiers: Depression Type: unspecified Qualified Code(s): F32.9 - Major depressive disorder, single episode, unspecified Code(s): F32.9 - Major depressive disorder, single episode, unspecified Status: Acute Assessment and Plan: Patient has history of depression now with suicidal ideation, on admission, patient admitted to suicide ideation and also a suicide attempt when he was 16 years old Sitter at bedside for one-to-one observation Suicide precautions Patient has not been taking his home medications for more than a month (3) CAD (coronary artery disease): Code(s): I25.10 - Atherosclerotic heart disease of [place] coronary artery without angina pectoris Status: Acute Assessment and Plan: History of coronary disease status post stent Continue aspirin beta-maulik statin and losartan (4) Hyperlipidemia: Qualifiers: Hyperlipidemia type: unspecified Qualified Code(s): E78.5 - Hyperlipidemia, unspecified Code(s): E78.5 - Hyperlipidemia, unspecified Status: Acute Assessment and Plan: Continue statin -hypertriglyceridemia -continue fenofibrate (5) Hypothyroidism: Code(s): E03.9 - Hypothyroidism, unspecified Status: Acute Assessment and Plan: TSH is high likely secondary to noncompliance as patient has not taken his thyroid pills for more than a month Continue Levothyroxine at home dose (6) JOSH (obstructive sleep apnea): Code(s): G47.33 - Obstructive sleep apnea (adult) (pediatric) Status: Acute Assessment and Plan: CPAP at night and while asleep during the day (7) Diabetic neuropathy: Code(s): E11.40 - Type 2 diabetes mellitus with diabetic neuropathy, unspecified Status: Acute Assessment and Plan: Continue Neurontin (8) Suicide ideation: Code(s): R45.851 - Suicidal ideations Status: Acute Assessment and Plan: One-to-one sitter Suicide precaution (9) Hypertriglyceridemia: Code(s): E78.1 - Pure hyperglyceridemia Status: Acute Assessment and Plan: Patient initial triglyceride check was> 2625 He was started insulin infusion for his DKA and triglyceride trending down, levels pending for today He does not have any abdominal pain His triglyceride level is likely secondary to uncontrolled diabetes and untreated hypothyroidism Continue insulin infusion, monitor triglyceride levels Continue statin, continue fenofibrate and metformin Low-fat diet Plan DVT prophylaxis -Lovenox Stress ulcer prophylaxis -PPI Nutrition -diabetic and low-fat diet Code Status - Full Code Total Critical Care Time -33 minute Discussed with patient updated with his condition and plan care. Patient is motivated to RE-set and start again, he was to start taking his medications once he gets home. Due to a high probability of clinically significant, life threatening deterioration, the patient required my highest level of preparedness to intervene emergently and I personally spent this critical care time directly and personally managing the patient. This critical care time included obtaining a history; examining the patient; pulse oximetry; ordering and review of studies; arranging urgent treatment with development of a management plan; evaluation of patient's response to treatment; frequent reassessment; and discussions with other providers. It was exclusive of separately billable procedures and treating other patients and teaching time. Please see Assessment and Plan section and the rest of the note for further information on patient assessment and treatment This dictation may have been done utilizing a voice recognition system. Attempts have been made to correct errors. However, there may be uncorrected grammatical, spelling, and recognitions errors present. Subjective Date/time seen: 06/09/24 08:39 Interval history: Reason for consult: DKA, depression, suicidal behavior/ideation, severe hypothyroidism, hypertriglyceridemia, noncompliance of medication 06/09/2024: Patient seen and examined the ICU this morning, is awake, alert, oriented. Remains on insulin infusion, on room air with adequate O2 sats, good urine output. Afebrile, hemodynamically stable, denies any chest pain, shortness of breath, abdominal pain, nausea, vomiting at this time. Review of Systems Review of Systems: All systems reviewed & are unremarkable except as noted in HPI and below (HPI) Exam Narrative: General: Pt is alert awake and in NAD Lungs/Chest: Trachea central Clear BS B/L, No crackles or wheezing. Cardiac: RRR. Normal S1 S2. No murmurs Circulation: Pedal pulses are intact and symmetrical. Abdomen: Normal bowel sounds. Obese. Soft. NT. ND. Extremities: No clubbing, cyanosis or edema. Warm : Johnson in place Neurologic: Follows commands. Moves all 4 extremities PERRL Skin: No Rash Psych: Normal speech, flat affect, on admission, patient admitted to suicide ideation and also a suicide attempt when he was 16 years old Objective Data Vital Signs Vital Signs: Vital Signs - 24 hr 06/08/24 10:00 06/08/24 10:00 06/08/24 12:00 Temperature 98.4 F Pulse Rate 52 L 52 L 49 L Respiratory Rate 15 16 Blood Pressure 156/83 H 116/69 Pulse Oximetry 100 99 Oxygen Delivery 06/08/24 12:00 06/08/24 12:00 06/08/24 13:37 Temperature Pulse Rate 53 L 48 L 53 L Respiratory Rate 20 20 Blood Pressure Pulse Oximetry 100 100 Oxygen Delivery Room Air Room Air 06/08/24 14:00 06/08/24 14:00 06/08/24 16:00 Temperature 98.6 F 98.0 F Pulse Rate 51 L 54 L 51 L Respiratory Rate 15 14 Blood Pressure 108/51 L 123/75 Pulse Oximetry 100 97 Oxygen Delivery 06/08/24 16:00 06/08/24 16:00 06/08/24 18:00 Temperature Pulse Rate 54 L 54 L 54 L Respiratory Rate 14 Blood Pressure Pulse Oximetry 97 Oxygen Delivery Room Air 06/08/24 18:00 06/08/24 20:00 06/08/24 20:00 Temperature Pulse Rate 54 L 54 L 52 L Respiratory Rate 9 L 9 L Blood Pressure Pulse Oximetry 98 98 Oxygen Delivery Room Air 06/08/24 20:00 06/08/24 22:00 06/08/24 22:00 Temperature 98 F Pulse Rate 52 L 56 L 56 L Respiratory Rate 15 22 H Blood Pressure 118/66 143/82 H Pulse Oximetry 97 100 Oxygen Delivery 06/08/24 23:13 06/09/24 00:00 06/09/24 00:00 Temperature 98.1 F Pulse Rate 50 L 53 L 54 L Respiratory Rate 11 L 20 9 L Blood Pressure 149/78 H Pulse Oximetry 98 99 98 Oxygen Delivery Autopap Room Air 06/09/24 00:00 06/09/24 01:58 06/09/24 02:00 Temperature Pulse Rate 53 L 52 L 53 L Respiratory Rate 14 Blood Pressure Pulse Oximetry 95 Oxygen Delivery Autopap 06/09/24 02:00 06/09/24 04:00 06/09/24 04:00 Temperature Pulse Rate 54 L 54 L 60 Respiratory Rate 18 9 L Blood Pressure 103/72 Pulse Oximetry 98 98 Oxygen Delivery Room Air 06/09/24 04:00 06/09/24 06:00 06/09/24 06:00 Temperature 98 F Pulse Rate 60 53 L 53 L Respiratory Rate 22 H 18 Blood Pressure 99/66 L 140/70 Pulse Oximetry 99 100 Oxygen Delivery Intake/Output Intake/Output: Intake & Output 06/06/24 06/07/24 06/08/24 06/09/24 23:59 23:59 23:59 23:59 Intake Total 2794.8 3653.1 1043.4 Output Total 800 2180 1700 Balance 1994.8 1473.1 -656.6 Meds/Results Medications: Active Medications Generic Name Dose Route Start Last Admin Trade Name Freq PRN Reason Stop Dose Admin Aspirin 81 mg 06/08/24 09:00 06/09/24 08:01 Aspirin 81 Mg Enteric Tablet PO 81 mg QAM JAZMÍN Administration Dextrose 12.5 gm 06/07/24 13:12 Dextrose 50% 25 Gm/50 Ml Syringe IV PUSH PRN PRN Hypoglycemia Protocol Enoxaparin Sodium 40 mg 06/08/24 09:00 06/09/24 08:02 Enoxaparin 40 Mg/0.4 Ml Syringe SUB-Q 40 mg DAILY JAZMÍN Administration Fenofibrate 145 mg 06/08/24 09:45 06/09/24 08:02 Fenofibrate Nanocrystallized 145 Mg Tablet PO 145 mg QAM JAZMÍN Administration Gabapentin 800 mg 06/07/24 17:00 06/09/24 07:59 Gabapentin 400 Mg Capsule PO 800 mg TID JAZMÍN Administration Glucagon 1 mg 06/07/24 13:12 Glucagon For Inj 1 Mg Vial IM PRN PRN Hypoglycemia Protocol Glucose 15 gm 06/07/24 13:12 Glucose Oral Gel 15 Gm Of Glucse In 37.5 Gm Tube PO PRN PRN Hypoglycemia Protocol Sodium Chloride 1,000 mls @ 150 mls/hr 06/07/24 13:15 06/08/24 23:42 Normal Saline Iv IV CONT 0 mls/hr .Q6H40M JAZMÍN Infusion Dextrose 1,000 mls @ 100 mls/hr 06/07/24 13:12 Dextrose 5% 1,000 Ml IVPB PRN PRN Hypoglycemia Protocol Potassium Chloride/Dextrose/Sod Cl 1,000 mls @ 150 mls/hr 06/07/24 13:45 06/09/24 06:38 Kcl 20 Meq/D5/0.45% Sod Chl IV CONT 150 mls/hr .Q6H40M JAZMÍN Administration Dextrose/Sodium Chloride 1,000 mls @ 150 mls/hr 06/07/24 13:45 Dextrose 5% Sodium Chloride 0.45% IV CONT .Q6H40M JAZMÍN Insulin Human Regular 100 100 mls @ 8 mls/hr 06/07/24 13:45 06/09/24 07:39 units/ Sodium Chloride IV CONT 1 units/hr .[id number] JAZMÍN 1 mls/hr Titration Protocol 8 UNITS/HR Magnesium Sulfate/Dextrose 3 gm in 100 mls @ 33.333 mls/hr 06/09/24 07:15 06/09/24 07:57 Magnesium Sulfate 3gm/[id number] IVPB 06/09/24 10:14 33.33 mls/hr ONCE ONE Administration Labetalol HCl 20 mg 06/07/24 13:48 Labetalol Hcl Inj 100 Mg/20 Ml Vial IV PUSH Q4H PRN SBP > 160 and HR> 60 -1st choice Levothyroxine Sodium 225 mcg 06/08/24 06:30 06/09/24 06:38 Levothyroxine Sodium 75 Mcg Tablet PO 225 mcg DAILY@0630 JAZMÍN Administration Losartan Potassium 25 mg 06/08/24 09:00 06/09/24 08:02 Losartan Potassium 25 Mg Tablet PO 25 mg DAILY JAZMÍN Administration Metformin HCl 500 mg 06/08/24 17:00 06/09/24 07:58 Metformin Hcl 500 Mg Tablet PO 500 mg BIDWM JAZMÍN Administration Metoprolol Succinate 25 mg 06/08/24 09:00 06/08/24 08:31 Metoprolol Succinate Ext Rel 25 Mg Tabcr PO 25 mg QAM JAZMÍN Administration Ondansetron HCl 4 mg 06/07/24 13:53 06/07/24 19:30 Ondansetron Inj 4 Mg/2 Ml Vial IV PUSH 4 mg Q4H PRN Administration Nausea And Vomiting Pantoprazole Sodium 40 mg 06/08/24 09:00 06/09/24 08:03 Pantoprazole 40 Mg Tablet PO 40 mg QAM JAZMÍN Administration Rosuvastatin Calcium 40 mg 06/08/24 09:00 06/09/24 08:03 Rosuvastatin 20 Mg Tablet PO 40 mg QAM JAZMÍN Administration Radiology Results: ITS Impressions Chest X-Ray 06/07/24 11:11 IMPRESSION: 1. Chronic mild left basilar atelectasis/scarring. No other acute cardiopulmonary disease. Head CT 06/07/24 12:48 IMPRESSION: No evidence for acute intracranial hemorrhage or calvarial fracture. Labs Labs: Laboratory Results - last 24 hr 06/08/24 06/08/24 06/08/24 06:18 09:32 10:26 WBC RBC Hgb Hct MCV MCH MCHC RDW Plt Count MPV Immature Gran % (Auto) Neut % (Auto) Lymph % (Auto) [place] % (Auto) Eos % (Auto) Baso % (Auto) Lymph # (Auto) [place] # (Auto) Eos # (Auto) Baso # (Auto) Abs Immat Gran (auto) Absolute Neuts (auto) Absolute Nucleated RBC Nucleated RBC % Sodium 134 L 133 L Potassium 4.2 4.1 Chloride 106 102 Carbon Dioxide 19 L 19 L Anion Gap 9 12 BUN 9 8 L Creatinine 1.09 1.06 Estim Creat Clear Calc 73 75 Estimated GFR > 60 > 60 Glucose 168 H 187 H POC Capillary Glucose 210 H Calcium 8.9 8.8 Magnesium 1.5 L Total Bilirubin 0.8 AST 30 ALT 47 Alkaline Phosphatase 52 Total Protein 6.0 L Albumin 3.5 Triglycerides 1535 H Cholesterol 293 H LDL Cholesterol Direct < 60 HDL Direct TNP 06/08/24 06/08/24 06/08/24 10:27 10:34 11:58 WBC RBC Hgb Hct MCV MCH MCHC RDW Plt Count MPV Immature Gran % (Auto) Neut % (Auto) Lymph % (Auto) [place] % (Auto) Eos % (Auto) Baso % (Auto) Lymph # (Auto) [place] # (Auto) Eos # (Auto) Baso # (Auto) Abs Immat Gran (auto) Absolute Neuts (auto) Absolute Nucleated RBC Nucleated RBC % Sodium Cancelled Potassium Cancelled Chloride Cancelled Carbon Dioxide Cancelled Anion Gap Cancelled BUN Cancelled Creatinine Cancelled Estim Creat Clear Calc Cancelled Estimated GFR Cancelled Glucose Cancelled POC Capillary Glucose 178 H 199 H Calcium Cancelled Magnesium Total Bilirubin AST ALT Alkaline Phosphatase Total Protein Albumin Triglycerides Cholesterol LDL Cholesterol Direct HDL Direct 06/08/24 06/08/24 06/08/24 13:39 14:40 15:33 WBC RBC Hgb Hct MCV MCH MCHC RDW Plt Count MPV Immature Gran % (Auto) Neut % (Auto) Lymph % (Auto) [place] % (Auto) Eos % (Auto) Baso % (Auto) Lymph # (Auto) [place] # (Auto) Eos # (Auto) Baso # (Auto) Abs Immat Gran (auto) Absolute Neuts (auto) Absolute Nucleated RBC Nucleated RBC % Sodium 131 L Potassium 4.2 Chloride 102 Carbon Dioxide 16 L Anion Gap 13 H BUN 6 L Creatinine 1.01 Estim Creat Clear Calc 78 Estimated GFR > 60 Glucose 268 H POC Capillary Glucose 207 H 276 H 288 H Calcium 7.9 L Magnesium Total Bilirubin AST ALT Alkaline Phosphatase Total Protein Albumin Triglycerides Cholesterol LDL Cholesterol Direct HDL Direct 06/08/24 06/08/24 06/08/24 16:33 17:34 18:47 WBC RBC Hgb Hct MCV MCH MCHC RDW Plt Count MPV Immature Gran % (Auto) Neut % (Auto) Lymph % (Auto) [place] % (Auto) Eos % (Auto) Baso % (Auto) Lymph # (Auto) [place] # (Auto) Eos # (Auto) Baso # (Auto) Abs Immat Gran (auto) Absolute Neuts (auto) Absolute Nucleated RBC Nucleated RBC % Sodium Potassium Chloride Carbon Dioxide Anion Gap BUN Creatinine Estim Creat Clear Calc Estimated GFR Glucose POC Capillary Glucose 275 H 277 H 269 H Calcium Magnesium Total Bilirubin AST ALT Alkaline Phosphatase Total Protein Albumin Triglycerides Cholesterol LDL Cholesterol Direct HDL Direct 06/08/24 06/08/24 06/08/24 19:26 20:17 21:27 WBC RBC Hgb Hct MCV MCH MCHC RDW Plt Count MPV Immature Gran % (Auto) Neut % (Auto) Lymph % (Auto) [place] % (Auto) Eos % (Auto) Baso % (Auto) Lymph # (Auto) [place] # (Auto) Eos # (Auto) Baso # (Auto) Abs Immat Gran (auto) Absolute Neuts (auto) Absolute Nucleated RBC Nucleated RBC % Sodium Potassium Chloride Carbon Dioxide Anion Gap BUN Creatinine Estim Creat Clear Calc Estimated GFR Glucose POC Capillary Glucose 328 H 314 H 323 H Calcium Magnesium Total Bilirubin AST ALT Alkaline Phosphatase Total Protein Albumin Triglycerides Cholesterol LDL Cholesterol Direct HDL Direct 06/08/24 06/08/24 06/08/24 22:35 22:54 23:40 WBC RBC Hgb Hct MCV MCH MCHC RDW Plt Count MPV Immature Gran % (Auto) Neut % (Auto) Lymph % (Auto) [place] % (Auto) Eos % (Auto) Baso % (Auto) Lymph # (Auto) [place] # (Auto) Eos # (Auto) Baso # (Auto) Abs Immat Gran (auto) Absolute Neuts (auto) Absolute Nucleated RBC Nucleated RBC % Sodium 130 L Potassium 4.3 Chloride 100 Carbon Dioxide 20 L Anion Gap 10 BUN 6 L Creatinine 1.20 Estim Creat Clear Calc 66 Estimated GFR > 60 Glucose 271 H POC Capillary Glucose 321 H 248 H Calcium 8.1 L Magnesium Total Bilirubin AST ALT Alkaline Phosphatase Total Protein Albumin Triglycerides Cholesterol LDL Cholesterol Direct HDL Direct 06/09/24 06/09/24 06/09/24 00:45 01:52 03:11 WBC RBC Hgb Hct MCV MCH MCHC RDW Plt Count MPV Immature Gran % (Auto) Neut % (Auto) Lymph % (Auto) [place] % (Auto) Eos % (Auto) Baso % (Auto) Lymph # (Auto) [place] # (Auto) Eos # (Auto) Baso # (Auto) Abs Immat Gran (auto) Absolute Neuts (auto) Absolute Nucleated RBC Nucleated RBC % Sodium Potassium Chloride Carbon Dioxide Anion Gap BUN Creatinine Estim Creat Clear Calc Estimated GFR Glucose POC Capillary Glucose 251 H 223 H 232 H Calcium Magnesium Total Bilirubin AST ALT Alkaline Phosphatase Total Protein Albumin Triglycerides Cholesterol LDL Cholesterol Direct HDL Direct 06/09/24 06/09/24 06/09/24 03:38 04:27 06:02 WBC 7.2 RBC 4.32 L Hgb 12.8 L Hct 36.5 L MCV 84.5 MCH 29.6 MCHC 35.1 RDW 14.6 H Plt Count 168 MPV 10.9 H Immature Gran % (Auto) 0.3 Neut % (Auto) 49.4 Lymph % (Auto) 41.0 [place] % (Auto) 5.0 Eos % (Auto) 3.5 Baso % (Auto) 0.8 Lymph # (Auto) 2.95 [place] # (Auto) 0.4 Eos # (Auto) 0.3 Baso # (Auto) 0.1 Abs Immat Gran (auto) 0.02 Absolute Neuts (auto) 3.6 Absolute Nucleated RBC 0.000 Nucleated RBC % 0.0 Sodium 131 L Potassium 4.1 Chloride 104 Carbon Dioxide 18 L Anion Gap 9 BUN 7 L Creatinine 1.17 Estim Creat Clear Calc 68 Estimated GFR > 60 Glucose 207 H POC Capillary Glucose 232 H 145 H Calcium 8.4 Magnesium 1.2 L Total Bilirubin 0.5 AST 24 ALT 34 Alkaline Phosphatase 42 Total Protein 5.0 L Albumin 3.0 L Triglycerides Cholesterol LDL Cholesterol Direct HDL Direct 06/09/24 06/09/24 06/09/24 06:43 07:29 07:38 WBC RBC Hgb Hct MCV MCH MCHC RDW Plt Count MPV Immature Gran % (Auto) Neut % (Auto) Lymph % (Auto) [place] % (Auto) Eos % (Auto) Baso % (Auto) Lymph # (Auto) [place] # (Auto) Eos # (Auto) Baso # (Auto) Abs Immat Gran (auto) Absolute Neuts (auto) Absolute Nucleated RBC Nucleated RBC % Sodium 132 L Potassium 4.8 Chloride 103 Carbon Dioxide 19 L Anion Gap 10 BUN 8 L Creatinine 1.24 Estim Creat Clear Calc 66 Estimated GFR 59 Glucose 158 H POC Capillary Glucose 164 H 170 H Calcium 8.5 Magnesium Total Bilirubin AST ALT Alkaline Phosphatase Total Protein Albumin Triglycerides Cholesterol LDL Cholesterol Direct HDL Direct Quality VTE Prophylaxis VTE prophylaxis: pharmacologic ordered
[2024-06-09 09:05] LABS: Glucose Point of Care 177 mg/dl (65-105)
[2024-06-09 09:16] LABS: Triglycerides 1940 mg/dL (<150)
[2024-06-09 09:39] LABS: Glucose Point of Care 192 mg/dl (65-105)
[2024-06-09 10:11] LABS: Glucose Point of Care 224 mg/dl (65-105)
--- NOTE | 2024-06-09 10:46 | PCFNICU ---
ICU Rounding Note: Pt current nutrition is DBCC/Low Fat. Last recorded weight is 107 kg, up from 102 kg on admit. Bowel Motility: No BM reported. Labs Reviewed:Mg 1.2, Glu 158, BUN 8, Na 132, Hgb 12.8, Hct 36.5 Meds Noted: Glucophage, Protonix, Lovenox Skin: WNL Additional Notes: Patient tolerating DBCC/Low Fat diet. Agree with diet orders. No further nutritional interventions need at this time. Following every 7 days/LOS.
[2024-06-09 12:11] LABS: Glucose Point of Care 247 mg/dl (65-105)
[2024-06-09 12:11] LABS: Glucose Point of Care 291 mg/dl (65-105)
[2024-06-09 14:02] LABS: Glucose Point of Care 293 mg/dl (65-105)
[2024-06-09 15:13] LABS: Glucose Point of Care 223 mg/dl (65-105)
[2024-06-09 16:21] LABS: Glucose Point of Care 191 mg/dl (65-105)
[2024-06-09 17:31] LABS: Glucose Point of Care 173 mg/dl (65-105)
[2024-06-09 18:34] LABS: Glucose Point of Care 200 mg/dl (65-105)
[2024-06-09 19:41] LABS: Glucose Point of Care 196 mg/dl (65-105)
[2024-06-09 20:30] LABS: Glucose Point of Care 200 mg/dl (65-105)
[2024-06-09 21:30] LABS: Glucose Point of Care 209 mg/dl (65-105)
[2024-06-09 22:51] LABS: Glucose Point of Care 212 mg/dl (65-105)
[2024-06-09 23:35] LABS: Glucose Point of Care 234 mg/dl (65-105)
[2024-06-10] VITALS (18 sets, daily range): BP systolic 116–166; BP diastolic 66–97; PULSE 48–78; RESP 9–18; TEMP 36.2–36.8; O2SAT 92–100
[2024-06-10 00:51] LABS: Glucose Point of Care 239 mg/dl (65-105)
[2024-06-10 02:33] LABS: Glucose Point of Care 218 mg/dl (65-105)
[2024-06-10 05:10] LABS: Glucose Point of Care 246 mg/dl (65-105)
[2024-06-10 05:18] LABS: Basophils Absolute Auto 0.1 K/mm3 (0.0-0.1); Basophils Percent Auto 1.3 % (0.2-1.2); Eosinophils Absolute Auto 0.2 K/mm3 (0-0.3); Eosinophils Percent Auto 3.7 % (0-4.4); Hematocrit 36.6 % (42.0-52.0); Hemoglobin 12.7 g/dL (14.0-18.0); Immature Granulocyte Absolute 0.02 K/mm3 (0.00-0.031); Immature Granulocyte Percent A 0.4 % (0-0.5); Lymphocytes Absolute Auto 2.62 K/mm3 (0.9-3.2); Lymphocytes Percent Auto 48.6 % (18.3-44.2); Mean Corpuscular HGB Conc 34.7 g/dl (32-36); Mean Corpuscular Hemoglobin 29.8 pg (26-34); Mean Corpuscular Volume 85.9 fl (80-100); Monocytes Absolute Auto 0.4 K/mm3 (0.1-0.6); Monocytes Percent Auto 6.7 % (2.6-8.5); Neutrophils Absolute Auto 2.1 K/mm3 (1.3-6.7); Neutrophils Percent Auto 39.3 % (45.5-73.1); Platelet Count Result 146 k/mm3 (150-375); Red Blood Count 4.26 M/mm3 (4.6-6.20); Red Cell Distribution Width 14.8 % (11.5-14.5); White Blood Count 5.4 K/mm3 (4.5-10.0)
[2024-06-10 05:19] LABS: Glucose Point of Care 251 mg/dl (65-105)
[2024-06-10 05:44] LABS: Alanine Aminotransferase 31 U/L (6-50); Albumin Level 3.1 g/dL (3.5-5.1); Alkaline Phosphatase 49 U/L (38-126); Anion Gap 7 mmol/L (4-12); Aspartate Amino Transferase 24 U/L (17-59); Bilirubin,Total 0.4 mg/dL (0.2-1.3); Blood Urea Nitrogen 7 mg/dL (9-20); Calcium 8.4 mg/dL (8.4-10.2); Carbon Dioxide 21 mmol/L (22-30); Chloride 106 mmol/L (98-107); Estimated CRCL calculation 67 ml/min; Estimated Glomerular Filt Rate 60; Glucose 258 mg/dL (65-110); Magnesium 1.5 mg/dL (1.6-2.3); Phosphorus 3.4 mg/dL (2.5-4.5); Potassium 4.7 mmol/L (3.4-5.0); Sodium 134 mmol/L (137-145)
[2024-06-10 05:59] LABS: Triglycerides 1499 mg/dL (<150)
[2024-06-10 06:00] LABS: Thyroid Stimulating Hormone > 100.000 uIU/mL (0.465-4.680)
[2024-06-10 07:00] LABS: Glucose Point of Care 259 mg/dl (65-105)
[2024-06-10 07:00] LABS: Glucose Point of Care 254 mg/dl (65-105)
[2024-06-10 08:16] LABS: Glucose Point of Care 242 mg/dl (65-105)
[2024-06-10] MEDS: LEVOTHYROXINE SODIUM 75 MCG TABLET 225 MCG PO (08:20)
--- NOTE | 2024-06-10 09:05 | P.PNINT_ITS ---
Progress Note: A&P Assessment and Plan (1) DKA (diabetic ketoacidosis): Code(s): E11.10 - Type 2 diabetes mellitus with ketoacidosis without coma Status: Acute Assessment and Plan: Patient admitted with DKA secondary to noncompliance. Remains acidotic anion gap has closed, but blood sugars remain elevated and patient is on insulin infusion Patient with hypertriglyceridemia for which the insulin infusion is being continued Serial labs ordered Replace magnesium and other electrolytes Patient on diabetic and low-fat diet -continue metformin (2) Depression: Qualifiers: Depression Type: unspecified Qualified Code(s): F32.9 - Major depressive disorder, single episode, unspecified Code(s): F32.9 - Major depressive disorder, single episode, unspecified Status: Acute Assessment and Plan: Patient has history of depression now with suicidal ideation, on admission, patient admitted to suicide ideation and also a suicide attempt when he was 16 years old Sitter at bedside for one-to-one observation Suicide precautions Patient has not been taking his home medications for more than a month (3) CAD (coronary artery disease): Code(s): I25.10 - Atherosclerotic heart disease of [place] coronary artery without angina pectoris Status: Acute Assessment and Plan: History of coronary disease status post stent Continue aspirin beta-maulik statin and losartan (4) Hyperlipidemia: Qualifiers: Hyperlipidemia type: unspecified Qualified Code(s): E78.5 - Hyperlipidemia, unspecified Code(s): E78.5 - Hyperlipidemia, unspecified Status: Acute Assessment and Plan: Continue statin -hypertriglyceridemia -continue fenofibrate (5) Hypothyroidism: Code(s): E03.9 - Hypothyroidism, unspecified Status: Acute Assessment and Plan: TSH is high likely secondary to noncompliance as patient has not taken his thyroid pills for more than a month Continue Levothyroxine (6) JOSH (obstructive sleep apnea): Code(s): G47.33 - Obstructive sleep apnea (adult) (pediatric) Status: Acute Assessment and Plan: CPAP at night and while asleep during the day (7) Diabetic neuropathy: Code(s): E11.40 - Type 2 diabetes mellitus with diabetic neuropathy, unspecified Status: Acute Assessment and Plan: Continue Neurontin (8) Suicide ideation: Code(s): R45.851 - Suicidal ideations Status: Acute Assessment and Plan: One-to-one sitter Suicide precaution -once medically stable will have care coordination and crisis management evaluate the patient (9) Hypertriglyceridemia: Code(s): E78.1 - Pure hyperglyceridemia Status: Acute Assessment and Plan: Patient initial triglyceride check was> 2625 He was started insulin infusion for his DKA and triglyceride trending down, levels pending for today He does not have any abdominal pain His triglyceride level is likely secondary to uncontrolled diabetes and untreated hypothyroidism Continue insulin infusion, monitor triglyceride levels Continue statin, continue fenofibrate and metformin Low-fat diet -patient currently on insulin infusion, will stop D5 normal saline infusion and start D10 infusion Plan DVT prophylaxis -Lovenox Stress ulcer prophylaxis -PPI Nutrition -diabetic and low-fat diet Code Status - Full Code Total Critical Care Time -32 minute Discussed with patient updated with his condition and plan care. Discussed with patient regarding his issues and explained to him the reason that he is in the hospital and we are trying to monitor his triglycerides, his diabetes, as hypothyroidism. Due to a high probability of clinically significant, life threatening deterioration, the patient required my highest level of preparedness to intervene emergently and I personally spent this critical care time directly and personally managing the patient. This critical care time included obtaining a history; examining the patient; pulse oximetry; ordering and review of studies; arranging urgent treatment with development of a management plan; evaluation of patient's response to treatment; frequent reassessment; and discussions with other providers. It was exclusive of separately billable procedures and treating other patients and teaching time. Please see Assessment and Plan section and the rest of the note for further information on patient assessment and treatment This dictation may have been done utilizing a voice recognition system. Attempts have been made to correct errors. However, there may be uncorrected grammatical, spelling, and recognitions errors present. Subjective Date/time seen: 06/10/24 09:05 Interval history: Reason for consult: DKA, depression, suicidal behavior/ideation, severe hypothyroidism, hypertriglyceridemia, noncompliance of medication 06/10/2024: Patient seen and examined the ICU this morning, is awake, alert, oriented. Remains on insulin infusion, on room air with adequate O2 sats, good urine output. Afebrile, hemodynamically stable, denies any chest pain, shortness of breath, abdominal pain, nausea, vomiting at this time. Patient states he is getting frustrated of being here in the hospital not being able to shower, being held against his wishes like a prisoner. Unable to use his cellphone. States he was to go home, see has dog and sleep on his bed. Review of Systems Review of Systems: All systems reviewed & are unremarkable except as noted in HPI and below (HPI) Exam Narrative: General: Pt is alert awake and in NAD Lungs/Chest: Trachea central Clear BS B/L, No crackles or wheezing. Cardiac: RRR. Normal S1 S2. No murmurs Circulation: Pedal pulses are intact and symmetrical. Abdomen: Normal bowel sounds. Obese. Soft. NT. ND. Extremities: No clubbing, cyanosis or edema. Warm : Johnson in place Neurologic: Follows commands. Moves all 4 extremities PERRL Skin: No Rash Psych: Normal speech, flat affect, on admission, patient admitted to suicide ideation and also a suicide attempt when he was 16 years old Objective Data Vital Signs Vital Signs: Vital Signs - 24 hr 06/09/24 10:00 06/09/24 10:00 06/09/24 10:30 Temperature Pulse Rate 57 L 57 L 50 L Respiratory Rate 14 Blood Pressure 112/62 Pulse Oximetry 100 Oxygen Delivery 06/09/24 12:00 06/09/24 12:00 06/09/24 12:00 Temperature 98.2 F Pulse Rate 56 L 57 L Respiratory Rate 15 Blood Pressure 117/64 Pulse Oximetry 100 99 Oxygen Delivery Room Air 06/09/24 14:00 06/09/24 14:00 06/09/24 16:00 Temperature 98.2 F 97.5 F L Pulse Rate 52 L 52 L 60 Respiratory Rate 12 14 Blood Pressure 125/72 130/74 Pulse Oximetry 100 100 Oxygen Delivery 06/09/24 16:00 06/09/24 16:00 06/09/24 18:00 Temperature Pulse Rate 54 L 57 L Respiratory Rate 13 Blood Pressure 131/65 Pulse Oximetry 98 Oxygen Delivery Room Air 06/09/24 18:00 06/09/24 19:25 06/09/24 19:41 Temperature 98.4 F Pulse Rate 56 L 55 L 14 L Respiratory Rate 13 60 H Blood Pressure 131/64 146/72 H Pulse Oximetry 99 Oxygen Delivery 06/09/24 20:00 06/09/24 20:00 06/09/24 21:33 Temperature 98.4 F Pulse Rate 54 L 54 L 56 L Respiratory Rate 9 L 17 Blood Pressure 140/69 Pulse Oximetry 98 97 Oxygen Delivery Room Air 06/09/24 22:00 06/09/24 22:06 06/09/24 22:08 Temperature Pulse Rate 55 L 53 L Respiratory Rate 11 L Blood Pressure Pulse Oximetry 97 97 Oxygen Delivery Room Air Autopap 06/09/24 23:31 06/10/24 00:00 06/10/24 00:00 Temperature 97.6 F Pulse Rate 52 L 54 L 54 L Respiratory Rate 11 L 9 L Blood Pressure 134/80 Pulse Oximetry 96 98 Oxygen Delivery Room Air 06/10/24 02:00 06/10/24 02:00 06/10/24 02:47 Temperature Pulse Rate 49 L 52 L 55 L Respiratory Rate 11 L 12 Blood Pressure 120/66 Pulse Oximetry 99 97 Oxygen Delivery Autopap 06/10/24 03:55 06/10/24 04:00 06/10/24 04:00 Temperature 97.7 F Pulse Rate 49 L 54 L 48 L Respiratory Rate 12 9 L Blood Pressure 116/67 Pulse Oximetry 92 98 Oxygen Delivery Room Air 06/10/24 05:47 06/10/24 06:00 Temperature 97.7 F Pulse Rate 51 L 52 L Respiratory Rate 14 Blood Pressure 119/70 Pulse Oximetry 98 Oxygen Delivery Intake/Output Intake/Output: Intake & Output 06/07/24 06/08/24 06/09/24 06/10/24 23:59 23:59 23:59 23:59 Intake Total 2794.8 3653.1 3926.2 13.9 Output Total 800 2180 3500 600 Balance 1994.8 1473.1 426.2 -586.1 Meds/Results Medications: Active Medications Generic Name Dose Route Start Last Admin Trade Name Freq PRN Reason Stop Dose Admin Aspirin 81 mg 06/08/24 09:00 06/09/24 08:01 Aspirin 81 Mg Enteric Tablet PO 81 mg QAM JAZMÍN Administration Dextrose 12.5 gm 06/07/24 13:12 Dextrose 50% 25 Gm/50 Ml Syringe IV PUSH PRN PRN Hypoglycemia Protocol Enoxaparin Sodium 40 mg 06/08/24 09:00 06/09/24 08:02 Enoxaparin 40 Mg/0.4 Ml Syringe SUB-Q 40 mg DAILY JAZMÍN Administration Fenofibrate 145 mg 06/08/24 09:45 06/09/24 08:02 Fenofibrate Nanocrystallized 145 Mg Tablet PO 145 mg QAM JAZMÍN Administration Gabapentin 800 mg 06/07/24 17:00 06/09/24 17:51 Gabapentin 400 Mg Capsule PO 800 mg TID JAZMÍN Administration Glucagon 1 mg 06/07/24 13:12 Glucagon For Inj 1 Mg Vial IM PRN PRN Hypoglycemia Protocol Glucose 15 gm 06/07/24 13:12 Glucose Oral Gel 15 Gm Of Glucse In 37.5 Gm Tube PO PRN PRN Hypoglycemia Protocol Sodium Chloride 1,000 mls @ 150 mls/hr 06/07/24 13:15 06/09/24 17:51 Normal Saline Iv IV CONT Infused .Q6H40M JAZMÍN Infusion Dextrose 1,000 mls @ 100 mls/hr 06/07/24 13:12 Dextrose 5% 1,000 Ml IVPB PRN PRN Hypoglycemia Protocol Potassium Chloride/Dextrose/Sod Cl 1,000 mls @ 150 mls/hr 06/07/24 13:45 06/09/24 17:51 Kcl 20 Meq/D5/0.45% Sod Chl IV CONT 150 mls/hr .Q6H40M JAZMÍN Administration Insulin Human Regular 100 100 mls @ 4 mls/hr 06/07/24 13:45 06/10/24 08:12 units/ Sodium Chloride IV CONT 4 units/hr .Q24H JAZMÍN 4 mls/hr Titration Protocol 4 UNITS/HR Dextrose 1,000 mls @ 75 mls/hr 06/10/24 08:25 Dextrose 10% IV CONT .[id number] JAZMÍN Labetalol HCl 20 mg 06/07/24 13:48 Labetalol Hcl Inj 100 Mg/20 Ml Vial IV PUSH Q4H PRN SBP > 160 and HR> 60 -1st choice Levothyroxine Sodium 225 mcg 06/08/24 06:30 06/10/24 08:20 Levothyroxine Sodium 75 Mcg Tablet PO 225 mcg DAILY@0630 JAZMÍN Administration Losartan Potassium 25 mg 06/08/24 09:00 06/09/24 08:02 Losartan Potassium 25 Mg Tablet PO 25 mg DAILY JAZMÍN Administration Metformin HCl 500 mg 06/08/24 17:00 06/09/24 17:51 Metformin Hcl 500 Mg Tablet PO 500 mg BIDWM JAZMÍN Administration Metoprolol Succinate 25 mg 06/08/24 09:00 06/09/24 10:30 Metoprolol Succinate Ext Rel 25 Mg Tabcr PO Not Given QAM JAZMÍN Ondansetron HCl 4 mg 06/07/24 13:53 06/07/24 19:30 Ondansetron Inj 4 Mg/2 Ml Vial IV PUSH 4 mg Q4H PRN Administration Nausea And Vomiting Pantoprazole Sodium 40 mg 06/08/24 09:00 06/09/24 08:03 Pantoprazole 40 Mg Tablet PO 40 mg QAM JAZMÍN Administration Rosuvastatin Calcium 40 mg 06/08/24 09:00 06/09/24 08:03 Rosuvastatin 20 Mg Tablet PO 40 mg QAM JAZMÍN Administration Radiology Results: ITS Impressions Chest X-Ray 06/07/24 11:11 IMPRESSION: 1. Chronic mild left basilar atelectasis/scarring. No other acute cardiopulmonary disease. Head CT 06/07/24 12:48 IMPRESSION: No evidence for acute intracranial hemorrhage or calvarial fracture. Labs Labs: Laboratory Results - last 24 hr 06/09/24 06/09/24 06/09/24 07:29 09:01 09:35 WBC RBC Hgb Hct MCV MCH MCHC RDW Plt Count MPV Immature Gran % (Auto) Neut % (Auto) Lymph % (Auto) Coleman % (Auto) Eos % (Auto) Baso % (Auto) Lymph # (Auto) Coleman # (Auto) Eos # (Auto) Baso # (Auto) Abs Immat Gran (auto) Absolute Neuts (auto) Absolute Nucleated RBC Nucleated RBC % Sodium Potassium Chloride Carbon Dioxide Anion Gap BUN Creatinine Estim Creat Clear Calc Estimated GFR Glucose POC Capillary Glucose 177 H 192 H Calcium Phosphorus Magnesium Total Bilirubin AST ALT Alkaline Phosphatase Total Protein Albumin Triglycerides 1940 H TSH 06/09/24 06/09/24 06/09/24 10:09 11:05 12:08 WBC RBC Hgb Hct MCV MCH MCHC RDW Plt Count MPV Immature Gran % (Auto) Neut % (Auto) Lymph % (Auto) Coleman % (Auto) Eos % (Auto) Baso % (Auto) Lymph # (Auto) Coleman # (Auto) Eos # (Auto) Baso # (Auto) Abs Immat Gran (auto) Absolute Neuts (auto) Absolute Nucleated RBC Nucleated RBC % Sodium Potassium Chloride Carbon Dioxide Anion Gap BUN Creatinine Estim Creat Clear Calc Estimated GFR Glucose POC Capillary Glucose 224 H 247 H 291 H Calcium Phosphorus Magnesium Total Bilirubin AST ALT Alkaline Phosphatase Total Protein Albumin Triglycerides TSH 06/09/24 06/09/24 06/09/24 13:59 15:10 16:17 WBC RBC Hgb Hct MCV MCH MCHC RDW Plt Count MPV Immature Gran % (Auto) Neut % (Auto) Lymph % (Auto) Coleman % (Auto) Eos % (Auto) Baso % (Auto) Lymph # (Auto) Coleman # (Auto) Eos # (Auto) Baso # (Auto) Abs Immat Gran (auto) Absolute Neuts (auto) Absolute Nucleated RBC Nucleated RBC % Sodium Potassium Chloride Carbon Dioxide Anion Gap BUN Creatinine Estim Creat Clear Calc Estimated GFR Glucose POC Capillary Glucose 293 H 223 H 191 H Calcium Phosphorus Magnesium Total Bilirubin AST ALT Alkaline Phosphatase Total Protein Albumin Triglycerides TSH 06/09/24 06/09/24 06/09/24 17:26 18:31 19:28 WBC RBC Hgb Hct MCV MCH MCHC RDW Plt Count MPV Immature Gran % (Auto) Neut % (Auto) Lymph % (Auto) Coleman % (Auto) Eos % (Auto) Baso % (Auto) Lymph # (Auto) Coleman # (Auto) Eos # (Auto) Baso # (Auto) Abs Immat Gran (auto) Absolute Neuts (auto) Absolute Nucleated RBC Nucleated RBC % Sodium Potassium Chloride Carbon Dioxide Anion Gap BUN Creatinine Estim Creat Clear Calc Estimated GFR Glucose POC Capillary Glucose 173 H 200 H 196 H Calcium Phosphorus Magnesium Total Bilirubin AST ALT Alkaline Phosphatase Total Protein Albumin Triglycerides TSH 06/09/24 06/09/24 06/09/24 20:28 21:29 22:49 WBC RBC Hgb Hct MCV MCH MCHC RDW Plt Count MPV Immature Gran % (Auto) Neut % (Auto) Lymph % (Auto) Coleman % (Auto) Eos % (Auto) Baso % (Auto) Lymph # (Auto) Coleman # (Auto) Eos # (Auto) Baso # (Auto) Abs Immat Gran (auto) Absolute Neuts (auto) Absolute Nucleated RBC Nucleated RBC % Sodium Potassium Chloride Carbon Dioxide Anion Gap BUN Creatinine Estim Creat Clear Calc Estimated GFR Glucose POC Capillary Glucose 200 H 209 H 212 H Calcium Phosphorus Magnesium Total Bilirubin AST ALT Alkaline Phosphatase Total Protein Albumin Triglycerides TSH 06/09/24 06/10/24 06/10/24 23:26 00:48 02:25 WBC RBC Hgb Hct MCV MCH MCHC RDW Plt Count MPV Immature Gran % (Auto) Neut % (Auto) Lymph % (Auto) Coleman % (Auto) Eos % (Auto) Baso % (Auto) Lymph # (Auto) Coleman # (Auto) Eos # (Auto) Baso # (Auto) Abs Immat Gran (auto) Absolute Neuts (auto) Absolute Nucleated RBC Nucleated RBC % Sodium Potassium Chloride Carbon Dioxide Anion Gap BUN Creatinine Estim Creat Clear Calc Estimated GFR Glucose POC Capillary Glucose 234 H 239 H 218 H Calcium Phosphorus Magnesium Total Bilirubin AST ALT Alkaline Phosphatase Total Protein Albumin Triglycerides TSH 06/10/24 06/10/24 06/10/24 04:01 05:07 05:15 WBC 5.4 RBC 4.26 L Hgb 12.7 L Hct 36.6 L MCV 85.9 MCH 29.8 MCHC 34.7 RDW 14.8 H Plt Count 146 L MPV 11.0 H Immature Gran % (Auto) 0.4 Neut % (Auto) 39.3 L Lymph % (Auto) 48.6 H Coleman % (Auto) 6.7 Eos % (Auto) 3.7 Baso % (Auto) 1.3 H Lymph # (Auto) 2.62 Coleman # (Auto) 0.4 Eos # (Auto) 0.2 Baso # (Auto) 0.1 Abs Immat Gran (auto) 0.02 Absolute Neuts (auto) 2.1 Absolute Nucleated RBC 0.000 Nucleated RBC % 0.0 Sodium 134 L Potassium 4.7 Chloride 106 Carbon Dioxide 21 L Anion Gap 7 BUN 7 L Creatinine 1.21 Estim Creat Clear Calc 67 Estimated GFR 60 Glucose 258 H POC Capillary Glucose 246 H 251 H Calcium 8.4 Phosphorus 3.4 Magnesium 1.5 L Total Bilirubin 0.4 AST 24 ALT 31 Alkaline Phosphatase 49 Total Protein 6.0 L Albumin 3.1 L Triglycerides 1499 H TSH > 100.000 H 06/10/24 06/10/24 06/10/24 05:58 06:58 08:12 WBC RBC Hgb Hct MCV MCH MCHC RDW Plt Count MPV Immature Gran % (Auto) Neut % (Auto) Lymph % (Auto) Coleman % (Auto) Eos % (Auto) Baso % (Auto) Lymph # (Auto) Coleman # (Auto) Eos # (Auto) Baso # (Auto) Abs Immat Gran (auto) Absolute Neuts (auto) Absolute Nucleated RBC Nucleated RBC % Sodium Potassium Chloride Carbon Dioxide Anion Gap BUN Creatinine Estim Creat Clear Calc Estimated GFR Glucose POC Capillary Glucose 254 H 259 H 242 H Calcium Phosphorus Magnesium Total Bilirubin AST ALT Alkaline Phosphatase Total Protein Albumin Triglycerides TSH Quality VTE Prophylaxis VTE prophylaxis: pharmacologic ordered
[2024-06-10] MEDS: LIDOCAINE 1% PF INJ 5 ML VIAL INFILTRATE (09:15)
[2024-06-10] MEDS: GABAPENTIN 400 MG CAPSULE 800 MG PO ×3 (09:56→17:34)
[2024-06-10] MEDS: FENOFIBRATE NANOCRYSTALLIZED 145 MG TABLET PO (09:56)
[2024-06-10] MEDS: ENOXAPARIN 40 MG/0.4 ML SYRINGE SUB-Q (09:56)
[2024-06-10] MEDS: ASPIRIN 81 MG ENTERIC TABLET PO (09:57)
[2024-06-10] MEDS: ROSUVASTATIN 20 MG TABLET 40 MG PO (09:57)
[2024-06-10] MEDS: PANTOPRAZOLE 40 MG TABLET PO (09:57)
[2024-06-10] MEDS: metFORMIN HCL 500 MG TABLET PO ×2 (09:57→17:34)
[2024-06-10] MEDS: LOSARTAN POTASSIUM 25 MG TABLET PO (09:57)
[2024-06-10] MEDS: MAGNESIUM SULF 2 GM/WATER 50ML 2 GM/50 ML BAG IVPB (10:18)
[2024-06-10] MEDS: DEXTROSE 10% 1,000 ML 75 ML IV CONT ×2 (10:18→22:16)
[2024-06-10 10:48] LABS: Glucose Point of Care 204 mg/dl (65-105)
[2024-06-10 11:21] LABS: Glucose Point of Care 221 mg/dl (65-105)
[2024-06-10 12:27] LABS: Glucose Point of Care 191 mg/dl (65-105)
--- NOTE | 2024-06-10 13:07 | PM.IMPN ---
Progress Note: A&P Assessment and Plan (1) DKA (diabetic ketoacidosis): Code(s): E11.10 - Type 2 diabetes mellitus with ketoacidosis without coma Status: Acute Assessment and Plan: Patient admitted with DKA secondary to noncompliance. Remains acidotic anion gap has closed, but blood sugars remain elevated and patient is on insulin infusion Patient with hypertriglyceridemia for which the insulin infusion is being continued Serial labs ordered Replace magnesium and other electrolytes Patient on diabetic and low-fat diet -continue metformin (2) Depression: Qualifiers: Depression Type: unspecified Qualified Code(s): F32.9 - Major depressive disorder, single episode, unspecified Code(s): F32.9 - Major depressive disorder, single episode, unspecified Status: Acute Assessment and Plan: Patient has history of depression now with suicidal ideation, on admission, patient admitted to suicide ideation and also a suicide attempt when he was 16 years old Sitter at bedside for one-to-one observation Suicide precautions Patient has not been taking his home medications for more than a month (3) CAD (coronary artery disease): Code(s): I25.10 - Atherosclerotic heart disease of inupiat coronary artery without angina pectoris Status: Acute Assessment and Plan: History of coronary disease status post stent Continue aspirin beta-maulik statin and losartan (4) Hyperlipidemia: Qualifiers: Hyperlipidemia type: unspecified Qualified Code(s): E78.5 - Hyperlipidemia, unspecified Code(s): E78.5 - Hyperlipidemia, unspecified Status: Acute Assessment and Plan: Continue statin -hypertriglyceridemia -continue fenofibrate (5) Hypothyroidism: Code(s): E03.9 - Hypothyroidism, unspecified Status: Acute Assessment and Plan: TSH is high likely secondary to noncompliance as patient has not taken his thyroid pills for more than a month Continue Levothyroxine (6) JOSH (obstructive sleep apnea): Code(s): G47.33 - Obstructive sleep apnea (adult) (pediatric) Status: Acute Assessment and Plan: CPAP at night and while asleep during the day (7) Diabetic neuropathy: Code(s): E11.40 - Type 2 diabetes mellitus with diabetic neuropathy, unspecified Status: Acute Assessment and Plan: Continue Neurontin (8) Suicide ideation: Code(s): R45.851 - Suicidal ideations Status: Acute Assessment and Plan: One-to-one sitter Suicide precaution -once medically stable will have care coordination and crisis management evaluate the patient (9) Hypertriglyceridemia: Code(s): E78.1 - Pure hyperglyceridemia Status: Acute Assessment and Plan: Patient initial triglyceride check was> 2625 He was started insulin infusion for his DKA and triglyceride trending down, levels pending for today He does not have any abdominal pain His triglyceride level is likely secondary to uncontrolled diabetes and untreated hypothyroidism Continue insulin infusion, monitor triglyceride levels Continue statin, continue fenofibrate and metformin Low-fat diet -patient currently on insulin infusion, will stop D5 normal saline infusion and start D10 infusion Subjective Date/time seen: 06/10/24 13:07 Interval history: Patient is frustrated since he wants books to read.Still on insulin infusion due to TG. Review of Systems Review of Systems: 12 systems were reviewed and are negative except for as per HPI. All systems reviewed & are unremarkable except as noted in HPI and below (HPI) Exam Narrative: General: Pt is alert awake and in NAD Lungs/Chest: Trachea central Clear BS B/L, No crackles or wheezing. Cardiac: RRR. Normal S1 S2. No murmurs Circulation: Pedal pulses are intact and symmetrical. Abdomen: Normal bowel sounds. Obese. Soft. NT. ND. Extremities: No clubbing, cyanosis or edema. Warm : Johnson in place Neurologic: Follows commands. Moves all 4 extremities PERRL Skin: No Rash Psych: Normal speech, flat affect, on admission, patient admitted to suicide ideation and also a suicide attempt when he was 16 years old Objective Data Vital Signs Vital Signs: Vital Signs - 24 hr 06/09/24 14:00 06/09/24 14:00 06/09/24 16:00 Temperature 98.2 F 97.5 F L Pulse Rate 52 L 52 L 60 Respiratory Rate 12 14 Blood Pressure 125/72 130/74 Pulse Oximetry 100 100 Oxygen Delivery 06/09/24 16:00 06/09/24 16:00 06/09/24 18:00 Temperature Pulse Rate 54 L 57 L Respiratory Rate 13 Blood Pressure 131/65 Pulse Oximetry 98 Oxygen Delivery Room Air 06/09/24 18:00 06/09/24 19:25 06/09/24 19:41 Temperature 98.4 F Pulse Rate 56 L 55 L 14 L Respiratory Rate 13 60 H Blood Pressure 131/64 146/72 H Pulse Oximetry 99 Oxygen Delivery 06/09/24 20:00 06/09/24 20:00 06/09/24 21:33 Temperature 98.4 F Pulse Rate 54 L 54 L 56 L Respiratory Rate 9 L 17 Blood Pressure 140/69 Pulse Oximetry 98 97 Oxygen Delivery Room Air 06/09/24 22:00 06/09/24 22:06 06/09/24 22:08 Temperature Pulse Rate 55 L 53 L Respiratory Rate 11 L Blood Pressure Pulse Oximetry 97 97 Oxygen Delivery Room Air Autopap 06/09/24 23:31 06/10/24 00:00 06/10/24 00:00 Temperature 97.6 F Pulse Rate 52 L 54 L 54 L Respiratory Rate 11 L 9 L Blood Pressure 134/80 Pulse Oximetry 96 98 Oxygen Delivery Room Air 06/10/24 02:00 06/10/24 02:00 06/10/24 02:47 Temperature Pulse Rate 49 L 52 L 55 L Respiratory Rate 11 L 12 Blood Pressure 120/66 Pulse Oximetry 99 97 Oxygen Delivery Autopap 06/10/24 03:55 06/10/24 04:00 06/10/24 04:00 Temperature 97.7 F Pulse Rate 49 L 54 L 48 L Respiratory Rate 12 9 L Blood Pressure 116/67 Pulse Oximetry 92 98 Oxygen Delivery Room Air 06/10/24 05:47 06/10/24 06:00 06/10/24 08:00 Temperature 97.7 F 97.6 F Pulse Rate 51 L 52 L 56 L Respiratory Rate 14 13 Blood Pressure 119/70 157/97 H Pulse Oximetry 98 100 Oxygen Delivery 06/10/24 09:57 06/10/24 10:00 06/10/24 12:00 Temperature 97.7 F Pulse Rate 51 L 55 L 62 Respiratory Rate 14 12 Blood Pressure 163/96 H 140/87 Pulse Oximetry 99 100 Oxygen Delivery Intake/Output Intake/Output: Intake & Output 06/07/24 06/08/24 06/09/24 06/10/24 23:59 23:59 23:59 23:59 Intake Total 2794.8 3653.1 4026.2 1327.9 Output Total 800 2180 3500 600 Balance 1994.8 1473.1 526.2 727.9 Meds/Results Medications: Active Medications Generic Name Dose Route Start Last Admin Trade Name Freq PRN Reason Stop Dose Admin Aspirin 81 mg 06/08/24 09:00 06/10/24 09:57 Aspirin 81 Mg Enteric Tablet PO 81 mg QAM JAZMÍN Administration Dextrose 12.5 gm 06/07/24 13:12 Dextrose 50% 25 Gm/50 Ml Syringe IV PUSH PRN PRN Hypoglycemia Protocol Enoxaparin Sodium 40 mg 06/08/24 09:00 06/10/24 09:56 Enoxaparin 40 Mg/0.4 Ml Syringe SUB-Q 40 mg DAILY JAZMÍN Administration Fenofibrate 145 mg 06/08/24 09:45 06/10/24 09:56 Fenofibrate Nanocrystallized 145 Mg Tablet PO 145 mg QAM JAZMÍN Administration Gabapentin 800 mg 06/07/24 17:00 06/10/24 09:56 Gabapentin 400 Mg Capsule PO 800 mg TID JAZMÍN Administration Glucagon 1 mg 06/07/24 13:12 Glucagon For Inj 1 Mg Vial IM PRN PRN Hypoglycemia Protocol Glucose 15 gm 06/07/24 13:12 Glucose Oral Gel 15 Gm Of Glucse In 37.5 Gm Tube PO PRN PRN Hypoglycemia Protocol Sodium Chloride 1,000 mls @ 150 mls/hr 06/07/24 13:15 06/10/24 10:44 Normal Saline Iv IV CONT Not Given .Q6H40M JAZMÍN Dextrose 1,000 mls @ 100 mls/hr 06/07/24 13:12 Dextrose 5% 1,000 Ml IVPB PRN PRN Hypoglycemia Protocol Potassium Chloride/Dextrose/Sod Cl 1,000 mls @ 150 mls/hr 06/07/24 13:45 06/10/24 10:18 Kcl 20 Meq/D5/0.45% Sod Chl IV CONT Infused .Q6H40M JAZMÍN Infusion Insulin Human Regular 100 100 mls @ 8 mls/hr 06/07/24 13:45 06/10/24 12:21 units/ Sodium Chloride IV CONT 8 units/hr .[id number] JAZMÍN 8 mls/hr Titration Protocol 8 UNITS/HR Dextrose 1,000 mls @ 75 mls/hr 06/10/24 08:25 06/10/24 10:18 Dextrose 10% IV CONT 75 mls/hr .[id number] JAZMÍN Administration Labetalol HCl 20 mg 06/07/24 13:48 Labetalol Hcl Inj 100 Mg/20 Ml Vial IV PUSH Q4H PRN SBP > 160 and HR> 60 -1st choice Levothyroxine Sodium 225 mcg 06/08/24 06:30 06/10/24 08:20 Levothyroxine Sodium 75 Mcg Tablet PO 225 mcg DAILY@0630 JAZMÍN Administration Losartan Potassium 25 mg 06/08/24 09:00 06/10/24 09:57 Losartan Potassium 25 Mg Tablet PO 25 mg DAILY JAZMÍN Administration Metformin HCl 500 mg 06/08/24 17:00 06/10/24 09:57 Metformin Hcl 500 Mg Tablet PO 500 mg BIDWM [facility] Administration Metoprolol Succinate 25 mg 06/08/24 09:00 06/10/24 09:57 Metoprolol Succinate Ext Rel 25 Mg Tabcr PO Not Given [facility] [place] Ondansetron HCl 4 mg 06/07/24 13:53 06/07/24 19:30 Ondansetron Inj 4 Mg/2 Ml Vial IV PUSH 4 mg Q4H PRN Administration Nausea And Vomiting Pantoprazole Sodium 40 mg 06/08/24 09:00 06/10/24 09:57 Pantoprazole 40 Mg Tablet PO 40 mg [facility] [place] Administration Rosuvastatin Calcium 40 mg 06/08/24 09:00 06/10/24 09:57 Rosuvastatin 20 Mg Tablet PO 40 mg QAM [facility] Administration Sodium Chloride 20 ml 06/10/24 10:01 Central Line Flush IV PUSH PRN PRN after blood draws Sodium Chloride 10 ml 06/10/24 10:01 Central Line Flush IV PUSH PRN PRN with TPN bag changes Sodium Chloride 10 ml 06/10/24 14:00 Central Line Flush IV PUSH Q8HR [facility] Radiology Results: ITS Impressions Chest X-Ray 06/07/24 11:11 IMPRESSION: 1. Chronic mild left basilar atelectasis/scarring. No other acute cardiopulmonary disease. Head CT 06/07/24 12:48 IMPRESSION: No evidence for acute intracranial hemorrhage or calvarial fracture. Labs Labs: Laboratory Results - last 24 hr 06/09/24 06/09/24 06/09/24 13:59 15:10 16:17 WBC RBC Hgb Hct MCV MCH MCHC RDW Plt Count MPV Immature Gran % (Auto) Neut % (Auto) Lymph % (Auto) Morgan % (Auto) Eos % (Auto) Baso % (Auto) Lymph # (Auto) Morgan # (Auto) Eos # (Auto) Baso # (Auto) Abs Immat Gran (auto) Absolute Neuts (auto) Absolute Nucleated RBC Nucleated RBC % Sodium Potassium Chloride Carbon Dioxide Anion Gap BUN Creatinine Estim Creat Clear Calc Estimated GFR Glucose POC Capillary Glucose 293 H 223 H 191 H Calcium Phosphorus Magnesium Total Bilirubin AST ALT Alkaline Phosphatase Total Protein Albumin Triglycerides [facility] 06/09/24 06/09/24 06/09/24 17:26 18:31 19:28 WBC RBC Hgb Hct MCV MCH MCHC RDW Plt Count MPV Immature Gran % (Auto) Neut % (Auto) Lymph % (Auto) Morgan % (Auto) Eos % (Auto) Baso % (Auto) Lymph # (Auto) Morgan # (Auto) Eos # (Auto) Baso # (Auto) Abs Immat Gran (auto) Absolute Neuts (auto) Absolute Nucleated RBC Nucleated RBC % Sodium Potassium Chloride Carbon Dioxide Anion Gap BUN Creatinine Estim Creat Clear Calc Estimated GFR Glucose POC Capillary Glucose 173 H 200 H 196 H Calcium Phosphorus Magnesium Total Bilirubin AST ALT Alkaline Phosphatase Total Protein Albumin Triglycerides TSH 06/09/24 06/09/24 06/09/24 20:28 21:29 22:49 WBC RBC Hgb Hct MCV MCH MCHC RDW Plt Count MPV Immature Gran % (Auto) Neut % (Auto) Lymph % (Auto) Morgan % (Auto) Eos % (Auto) Baso % (Auto) Lymph # (Auto) Morgan # (Auto) Eos # (Auto) Baso # (Auto) Abs Immat Gran (auto) Absolute Neuts (auto) Absolute Nucleated RBC Nucleated RBC % Sodium Potassium Chloride Carbon Dioxide Anion Gap BUN Creatinine Estim Creat Clear Calc Estimated GFR Glucose POC Capillary Glucose 200 H 209 H 212 H Calcium Phosphorus Magnesium Total Bilirubin AST ALT Alkaline Phosphatase Total Protein Albumin Triglycerides [facility] 06/09/24 06/10/24 06/10/24 23:26 00:48 02:25 WBC RBC Hgb Hct MCV MCH MCHC RDW Plt Count MPV Immature Gran % (Auto) Neut % (Auto) Lymph % (Auto) Morgan % (Auto) Eos % (Auto) Baso % (Auto) Lymph # (Auto) Morgan # (Auto) Eos # (Auto) Baso # (Auto) Abs Immat Gran (auto) Absolute Neuts (auto) Absolute Nucleated RBC Nucleated RBC % Sodium Potassium Chloride Carbon Dioxide Anion Gap BUN Creatinine Estim Creat Clear Calc Estimated GFR Glucose POC Capillary Glucose 234 H 239 H 218 H Calcium Phosphorus Magnesium Total Bilirubin AST ALT Alkaline Phosphatase Total Protein Albumin Triglycerides TSH 06/10/24 06/10/24 06/10/24 04:01 05:07 05:15 WBC 5.4 RBC 4.26 L Hgb 12.7 L Hct 36.6 L MCV 85.9 MCH 29.8 MCHC 34.7 RDW 14.8 H Plt Count 146 L MPV 11.0 H Immature Gran % (Auto) 0.4 Neut % (Auto) 39.3 L Lymph % (Auto) 48.6 H Morgan % (Auto) 6.7 Eos % (Auto) 3.7 Baso % (Auto) 1.3 H Lymph # (Auto) 2.62 Morgan # (Auto) 0.4 Eos # (Auto) 0.2 Baso # (Auto) 0.1 Abs Immat Gran (auto) 0.02 Absolute Neuts (auto) 2.1 Absolute Nucleated RBC 0.000 Nucleated RBC % 0.0 Sodium 134 L Potassium 4.7 Chloride 106 Carbon Dioxide 21 L Anion Gap 7 BUN 7 L Creatinine 1.21 Estim Creat Clear Calc 67 Estimated GFR 60 Glucose 258 H POC Capillary Glucose 246 H 251 H Calcium 8.4 Phosphorus 3.4 Magnesium 1.5 L Total Bilirubin 0.4 AST 24 ALT 31 Alkaline Phosphatase 49 Total Protein 6.0 L Albumin 3.1 L Triglycerides 1499 H TSH > 100.000 H 06/10/24 06/10/24 06/10/24 05:58 06:58 08:12 WBC RBC Hgb Hct MCV MCH MCHC RDW Plt Count MPV Immature Gran % (Auto) Neut % (Auto) Lymph % (Auto) Morgan % (Auto) Eos % (Auto) Baso % (Auto) Lymph # (Auto) Morgan # (Auto) Eos # (Auto) Baso # (Auto) Abs Immat Gran (auto) Absolute Neuts (auto) Absolute Nucleated RBC Nucleated RBC % Sodium Potassium Chloride Carbon Dioxide Anion Gap BUN Creatinine Estim Creat Clear Calc Estimated GFR Glucose POC Capillary Glucose 254 H 259 H 242 H Calcium Phosphorus Magnesium Total Bilirubin AST ALT Alkaline Phosphatase Total Protein Albumin Triglycerides TSH 06/10/24 06/10/24 06/10/24 09:55 11:10 12:21 WBC RBC Hgb Hct MCV MCH MCHC RDW Plt Count MPV Immature Gran % (Auto) Neut % (Auto) Lymph % (Auto) Morgan % (Auto) Eos % (Auto) Baso % (Auto) Lymph # (Auto) Morgan # (Auto) Eos # (Auto) Baso # (Auto) Abs Immat Gran (auto) Absolute Neuts (auto) Absolute Nucleated RBC Nucleated RBC % Sodium Potassium Chloride Carbon Dioxide Anion Gap BUN Creatinine Estim Creat Clear Calc Estimated GFR Glucose POC Capillary Glucose 204 H 221 H 191 H Calcium Phosphorus Magnesium Total Bilirubin AST ALT Alkaline Phosphatase Total Protein Albumin Triglycerides TSH Quality VTE Prophylaxis VTE prophylaxis: pharmacologic ordered Hospitalist MIPS Advance Care Plan I have confirmed that the patient's Advanced Care Plan is present, code status is documented, or surrogate decision maker is listed in patient medical record.: Yes Medication Reconciliation I have utilized all available resources to obtain, update and review the patients current medications (includes all prescriptions, OTC, herbals, cannabis, and nutritional supplements).: Yes
[2024-06-10] MEDS: CENTRAL LINE FLUSH 10 ML IV PUSH ×2 (13:52→22:15)
[2024-06-10] MEDS: INSULIN HUMAN REGULAR (*BKC) 100 UNITS in SODIUM CHLORIDE 0.9% IV 99 ML 8 UNITS IV CONT (13:55)
[2024-06-10 13:57] LABS: Glucose Point of Care 205 mg/dl (65-105)
[2024-06-10 18:33] LABS: Glucose Point of Care 163 mg/dl (65-105)
[2024-06-10 18:33] LABS: Glucose Point of Care 172 mg/dl (65-105)
[2024-06-10 18:33] LABS: Glucose Point of Care 225 mg/dl (65-105)
[2024-06-10 18:33] LABS: Glucose Point of Care 174 mg/dl (65-105)
[2024-06-10] MEDS: LABETALOL HCL INJ 100 MG/20 ML VIAL 20 MG IV PUSH (22:38)
[2024-06-10 22:52] LABS: Glucose Point of Care 217 mg/dl (65-105)
[2024-06-10 22:52] LABS: Glucose Point of Care 246 mg/dl (65-105)
[2024-06-10 22:52] LABS: Glucose Point of Care 185 mg/dl (65-105)
[2024-06-10 22:52] LABS: Glucose Point of Care 271 mg/dl (65-105)
[2024-06-10 22:52] LABS: Glucose Point of Care 241 mg/dl (65-105)
[2024-06-10] MEDS: INSULIN HUMAN REGULAR (*BKC) 100 UNITS in SODIUM CHLORIDE 0.9% IV 99 ML 6 UNITS IV CONT (23:15)
[2024-06-10 23:28] LABS: Glucose Point of Care 297 mg/dl (65-105)
[2024-06-11] VITALS (16 sets, daily range): BP systolic 114–148; BP diastolic 61–76; PULSE 57–77; RESP 12–22; TEMP 36.5–37.5; O2SAT 94–100
[2024-06-11 00:18] LABS: Glucose Point of Care 294 mg/dl (65-105)
[2024-06-11 00:58] LABS: Glucose Point of Care 284 mg/dl (65-105)
[2024-06-11 02:22] LABS: Glucose Point of Care 304 mg/dl (65-105)
[2024-06-11 03:40] LABS: Glucose Point of Care 328 mg/dl (65-105)
[2024-06-11 04:19] LABS: Glucose Point of Care 366 mg/dl (65-105)
[2024-06-11 05:13] LABS: Glucose Point of Care 298 mg/dl (65-105)
[2024-06-11] MEDS: CENTRAL LINE FLUSH 10 ML IV PUSH ×3 (06:18→22:00)
[2024-06-11] MEDS: LEVOTHYROXINE SODIUM 75 MCG TABLET 225 MCG PO (06:18)
[2024-06-11 06:22] LABS: Glucose Point of Care 280 mg/dl (65-105)
[2024-06-11 06:29] LABS: Basophils Percent Auto 0.8 % (0.2-1.2); Eosinophils Absolute Auto 0.1 K/mm3 (0-0.3); Eosinophils Percent Auto 2.5 % (0-4.4); Hematocrit 36.3 % (42.0-52.0); Hemoglobin 12.1 g/dL (14.0-18.0); Immature Granulocyte Absolute 0.01 K/mm3 (0.00-0.031); Immature Granulocyte Percent A 0.2 % (0-0.5); Immature Platelet Fraction Pct 7.9 % (0.9-11.2); Lymphocytes Absolute Auto 1.41 K/mm3 (0.9-3.2); Mean Corpuscular HGB Conc 33.3 g/dl (32-36); Mean Corpuscular Hemoglobin 28.9 pg (26-34); Mean Corpuscular Volume 86.8 fl (80-100); Mean Platelet Volume 11.4 fl (7.4-10.4); Monocytes Absolute Auto 0.4 K/mm3 (0.1-0.6); Monocytes Percent Auto 7.7 % (2.6-8.5); Neutrophils Absolute Auto 3.2 K/mm3 (1.3-6.7); Neutrophils Percent Auto 61.8 % (45.5-73.1); Platelet Count Result 140 k/mm3 (150-375); Red Blood Count 4.18 M/mm3 (4.6-6.20); Red Cell Distribution Width 14.7 % (11.5-14.5); White Blood Count 5.2 K/mm3 (4.5-10.0)
[2024-06-11 06:45] LABS: Alanine Aminotransferase 28 U/L (6-50); Albumin Level 3.4 g/dL (3.5-5.1); Alkaline Phosphatase 49 U/L (38-126); Anion Gap 10 mmol/L (4-12); Aspartate Amino Transferase 22 U/L (17-59); Bilirubin,Total 0.5 mg/dL (0.2-1.3); Blood Urea Nitrogen 7 mg/dL (9-20); Calcium 8.5 mg/dL (8.4-10.2); Carbon Dioxide 21 mmol/L (22-30); Chloride 105 mmol/L (98-107); Estimated CRCL calculation 69 ml/min; Estimated Glomerular Filt Rate 60; Glucose 289 mg/dL (65-110); Magnesium 1.5 mg/dL (1.6-2.3); Phosphorus 3.2 mg/dL (2.5-4.5); Potassium 3.7 mmol/L (3.4-5.0); Sodium 136 mmol/L (137-145)
[2024-06-11 06:50] LABS: Triglycerides 1074 mg/dL (<150)
[2024-06-11 07:45] LABS: Glucose Point of Care 253 mg/dl (65-105)
[2024-06-11] MEDS: ASPIRIN 81 MG ENTERIC TABLET PO (07:56)
[2024-06-11] MEDS: metFORMIN HCL 500 MG TABLET PO (07:56)
[2024-06-11] MEDS: LOSARTAN POTASSIUM 25 MG TABLET PO (07:56)
[2024-06-11] MEDS: METOPROLOL SUCCINATE EXT REL 25 MG TABCR PO (07:56)
[2024-06-11] MEDS: GABAPENTIN 400 MG CAPSULE 800 MG PO ×3 (07:56→16:03)
[2024-06-11] MEDS: FENOFIBRATE NANOCRYSTALLIZED 145 MG TABLET PO (07:57)
[2024-06-11] MEDS: PANTOPRAZOLE 40 MG TABLET PO (07:57)
[2024-06-11] MEDS: ROSUVASTATIN 20 MG TABLET 40 MG PO (07:57)
[2024-06-11] MEDS: ENOXAPARIN 40 MG/0.4 ML SYRINGE SUB-Q (07:57)
[2024-06-11] MEDS: MAGNESIUM SULFATE 3GM/D5W100ML 3 GM/100 ML BAG IVPB (07:59)
[2024-06-11 08:37] LABS: Glucose Point of Care 264 mg/dl (65-105)
[2024-06-11 09:18] LABS: Glucose Point of Care 283 mg/dl (65-105)
--- NOTE | 2024-06-11 09:23 | P.PNINT_ITS ---
Progress Note: A&P Assessment and Plan (1) DKA (diabetic ketoacidosis): Code(s): E11.10 - Type 2 diabetes mellitus with ketoacidosis without coma Status: Acute Assessment and Plan: Patient admitted with DKA secondary to noncompliance. Remains acidotic anion gap has closed, but blood sugars remain elevated and patient is on insulin infusion Patient with hypertriglyceridemia for which the insulin infusion is being continued Serial labs ordered Replace magnesium and other electrolytes Patient on diabetic and low-fat diet -increase metformin to 1000 b.i.d. (2) Depression: Qualifiers: Depression Type: unspecified Qualified Code(s): F32.9 - Major depressive disorder, single episode, unspecified Code(s): F32.9 - Major depressive disorder, single episode, unspecified Status: Acute Assessment and Plan: Patient has history of depression now with suicidal ideation, on admission, patient admitted to suicide ideation and also a suicide attempt when he was 16 years old Sitter at bedside for one-to-one observation Suicide precautions Patient has not been taking his home medications for more than a month -06/11: started patient on home Rexulti and fluoxetine (3) CAD (coronary artery disease): Code(s): I25.10 - Atherosclerotic heart disease of [place] coronary artery without angina pectoris Status: Acute Assessment and Plan: History of coronary disease status post stent Continue aspirin beta-maulik statin and losartan -06/11: will start torsemide which patient takes at home (4) Hyperlipidemia: Qualifiers: Hyperlipidemia type: unspecified Qualified Code(s): E78.5 - Hyperlipidemia, unspecified Code(s): E78.5 - Hyperlipidemia, unspecified Status: Acute Assessment and Plan: Continue rosuvastatin and fenofibrate (5) Hypothyroidism: Code(s): E03.9 - Hypothyroidism, unspecified Status: Acute Assessment and Plan: TSH is high likely secondary to noncompliance as patient has not taken his thyroid pills for more than a month Continue Levothyroxine (6) JOSH (obstructive sleep apnea): Code(s): G47.33 - Obstructive sleep apnea (adult) (pediatric) Status: Acute Assessment and Plan: CPAP at night and while asleep during the day (7) Diabetic neuropathy: Code(s): E11.40 - Type 2 diabetes mellitus with diabetic neuropathy, unspecified Status: Acute Assessment and Plan: Continue Neurontin (8) Suicide ideation: Code(s): R45.851 - Suicidal ideations Status: Acute Assessment and Plan: One-to-one sitter Suicide precaution -once medically stable will have care coordination and crisis management evaluate the patient (9) Hypertriglyceridemia: Code(s): E78.1 - Pure hyperglyceridemia Status: Acute Assessment and Plan: Patient initial triglyceride check was> 2625 He was started insulin infusion for his DKA and triglyceride trending down, levels pending for today He does not have any abdominal pain His triglyceride level is likely secondary to uncontrolled diabetes and untreated hypothyroidism Continue insulin infusion, monitor triglyceride levels Continue statin, continue fenofibrate and metformin Low-fat diet -patient currently on insulin infusion and D10 infusion (10) HTN (hypertension): Code(s): I10 - Essential (primary) hypertension Status: Acute Assessment and Plan: Continue meds as above Plan DVT prophylaxis -Lovenox Stress ulcer prophylaxis -PPI Nutrition -diabetic and low-fat diet Code Status - Full Code Total Critical Care Time -32 minute Discussed with patient updated with his condition and plan care. Discussed with patient regarding his issues and explained to him the reason that he is in the hospital and we are trying to monitor his triglycerides, his diabetes, as hypothyroidism. Due to a high probability of clinically significant, life threatening deterioration, the patient required my highest level of preparedness to intervene emergently and I personally spent this critical care time directly and personally managing the patient. This critical care time included obtaining a history; examining the patient; pulse oximetry; ordering and review of studies; arranging urgent treatment with development of a management plan; evaluation of patient's response to treatment; frequent reassessment; and discussions with other providers. It was exclusive of separately billable procedures and treating other patients and teaching time. Please see Assessment and Plan section and the rest of the note for further information on patient assessment and treatment This dictation may have been done utilizing a voice recognition system. Attempts have been made to correct errors. However, there may be uncorrected grammatical, spelling, and recognitions errors present. Subjective Date/time seen: 06/11/24 09:23 Interval history: Reason for consult: DKA, depression, suicidal behavior/ideation, severe hypothyroidism, hypertriglyceridemia, noncompliance of medication 06/11/2024: Patient seen and examined the ICU, is awake, alert, oriented, remains on insulin infusion and D10 infusion. For patient again is upset, frustrated, states he feels is constricted in the room. He is requesting to at least have a book that he can read. Denies any nausea, vomiting, abdominal pain, shortness of breath, chest pain at this time. Urine output has been adequate, hemodynamically stable, afebrile. Review of Systems Review of Systems: All systems reviewed & are unremarkable except as noted in HPI and below (HPI) Exam Narrative: General: Pt is alert awake and in NAD Lungs/Chest: Trachea central Clear BS B/L, No crackles or wheezing. Cardiac: RRR. Normal S1 S2. No murmurs Circulation: Pedal pulses are intact and symmetrical. Abdomen: Normal bowel sounds. Obese. Soft. NT. ND. Extremities: No clubbing, cyanosis or edema. Warm : Johnson in place Neurologic: Follows commands. Moves all 4 extremities PERRL Skin: No Rash Psych: Normal speech, depressed and flat affect Objective Data Vital Signs Vital Signs: Vital Signs - 24 hr 06/10/24 09:57 06/10/24 10:00 06/10/24 10:00 Temperature Pulse Rate 51 L 55 L 55 L Respiratory Rate 14 Blood Pressure 163/96 H Pulse Oximetry 99 Oxygen Delivery 06/10/24 12:00 06/10/24 12:00 06/10/24 12:00 Temperature 97.7 F Pulse Rate 62 63 Respiratory Rate 12 Blood Pressure 140/87 Pulse Oximetry 100 Oxygen Delivery Room Air 06/10/24 14:00 06/10/24 14:00 06/10/24 16:00 Temperature Pulse Rate 67 67 64 Respiratory Rate 12 Blood Pressure 143/67 H Pulse Oximetry 100 Oxygen Delivery 06/10/24 16:00 06/10/24 16:00 06/10/24 18:00 Temperature 97.1 F L Pulse Rate 70 77 Respiratory Rate 13 Blood Pressure 155/70 H Pulse Oximetry 99 Oxygen Delivery Room Air 06/10/24 18:00 06/10/24 20:00 06/10/24 20:00 Temperature Pulse Rate 77 78 Respiratory Rate 15 Blood Pressure Pulse Oximetry 98 Oxygen Delivery Room Air 06/10/24 20:15 06/10/24 22:00 06/10/24 22:00 Temperature 98.3 F Pulse Rate 67 67 71 Respiratory Rate 18 16 Blood Pressure 150/71 H 166/88 H Pulse Oximetry 93 99 Oxygen Delivery 06/10/24 22:38 06/11/24 00:00 06/11/24 00:00 Temperature 97.7 F Pulse Rate 67 77 61 Respiratory Rate 22 H Blood Pressure 121/62 Pulse Oximetry 98 Oxygen Delivery 06/11/24 02:00 06/11/24 02:00 06/11/24 04:00 Temperature Pulse Rate 66 66 Respiratory Rate 12 Blood Pressure 127/61 Pulse Oximetry 99 Oxygen Delivery CPAP 06/11/24 04:00 06/11/24 04:00 06/11/24 06:00 Temperature 97.7 F Pulse Rate 59 L 59 L 67 Respiratory Rate 12 Blood Pressure 148/65 H Pulse Oximetry 94 Oxygen Delivery 06/11/24 06:29 06/11/24 07:45 06/11/24 07:56 Temperature 98.2 F Pulse Rate 62 63 70 Respiratory Rate 16 16 Blood Pressure 145/76 H 145/76 H Pulse Oximetry 98 97 Oxygen Delivery Intake/Output Intake/Output: Intake & Output 06/08/24 06/09/24 06/10/24 06/11/24 23:59 23:59 23:59 23:59 Intake Total 3653.1 4026.2 3045.8 1297.0 Output Total 2180 3500 1700 Balance 1473.1 526.2 1345.8 1297.0 Meds/Results Medications: Active Medications Generic Name Dose Route Start Last Admin Trade Name Freq PRN Reason Stop Dose Admin Aspirin 81 mg 06/08/24 09:00 06/11/24 07:56 Aspirin 81 Mg Enteric Tablet PO 81 mg QAM [facility] Administration Aspirin 81 mg 06/11/24 09:25 Aspirin 81 Mg Chewable Tablet PO DAILY [facility] Dextrose 12.5 gm 06/07/24 13:12 Dextrose 50% 25 Gm/50 Ml Syringe IV PUSH PRN PRN Hypoglycemia Protocol Enoxaparin Sodium 40 mg 06/08/24 09:00 06/11/24 07:57 Enoxaparin 40 Mg/0.4 Ml Syringe SUB-Q 40 mg DAILY JAZMÍN Administration Fenofibrate 145 mg 06/08/24 09:45 06/11/24 07:57 Fenofibrate Nanocrystallized 145 Mg Tablet PO 145 mg QAM [facility] Administration Fluoxetine HCl 40 mg 06/11/24 09:25 Fluoxetine Hcl 20 Mg Capsule PO DAILY JAZMÍN Gabapentin 800 mg 06/07/24 17:00 06/11/24 07:56 Gabapentin 400 Mg Capsule PO 800 mg TID JAZMÍN Administration Glucagon 1 mg 06/07/24 13:12 Glucagon For Inj 1 Mg Vial IM PRN PRN Hypoglycemia Protocol Glucose 15 gm 06/07/24 13:12 Glucose Oral Gel 15 Gm Of Glucse In 37.5 Gm Tube PO PRN PRN Hypoglycemia Protocol Dextrose 1,000 mls @ 100 mls/hr 06/07/24 13:12 Dextrose 5% 1,000 Ml IVPB PRN PRN Hypoglycemia Protocol Insulin Human Regular 100 100 mls @ 10 mls/hr 06/07/24 13:45 06/11/24 07:05 units/ Sodium Chloride IV CONT 10 units/hr .Q10H JAZMÍN 10 mls/hr Titration Protocol 10 UNITS/HR Dextrose 1,000 mls @ 75 mls/hr 06/10/24 08:25 06/11/24 08:35 Dextrose 10% IV CONT 25 mls/hr .[id number] JAZMÍN Infusion Magnesium Sulfate/Dextrose 3 gm in 100 mls @ 33.333 mls/hr 06/11/24 07:23 06/11/24 07:59 Magnesium Sulfate 3gm/[id number] IVPB 06/11/24 10:22 33.33 mls/hr ONCE ONE Administration Labetalol HCl 20 mg 06/07/24 13:48 06/10/24 22:38 Labetalol Hcl Inj 100 Mg/20 Ml Vial IV PUSH 20 mg Q4H PRN Administration SBP > 160 and HR> 60 -1st choice Levothyroxine Sodium 225 mcg 06/08/24 06:30 06/11/24 06:18 Levothyroxine Sodium 75 Mcg Tablet PO 225 mcg DAILY@0630 JAZMÍN Administration Losartan Potassium 25 mg 06/08/24 09:00 06/11/24 07:56 Losartan Potassium 25 Mg Tablet PO 25 mg DAILY JAZMÍN Administration Metformin HCl 1,000 mg 06/11/24 17:00 Metformin Hcl 500 Mg Tablet PO BIDWM JAZMÍN Metoprolol Succinate 25 mg 06/08/24 09:00 06/11/24 07:56 Metoprolol Succinate Ext Rel 25 Mg Tabcr PO 25 mg QAM JAZMÍN Administration Non-Formulary Medication 1 mg 06/11/24 09:25 Brexpiprazole [Rexulti] PO 07/11/24 09:24 DAILY JAZMÍN Ondansetron HCl 4 mg 06/07/24 13:53 06/07/24 19:30 Ondansetron Inj 4 Mg/2 Ml Vial IV PUSH 4 mg Q4H PRN Administration Nausea And Vomiting Pantoprazole Sodium 40 mg 06/08/24 09:00 06/11/24 07:57 Pantoprazole 40 Mg Tablet PO 40 mg QAM JAZMÍN Administration Rosuvastatin Calcium 40 mg 06/08/24 09:00 06/11/24 07:57 Rosuvastatin 20 Mg Tablet PO 40 mg QAM JAZMÍN Administration Sodium Chloride 20 ml 06/10/24 10:01 Central Line Flush IV PUSH PRN PRN after blood draws Sodium Chloride 10 ml 06/10/24 10:01 Central Line Flush IV PUSH PRN PRN with TPN bag changes Sodium Chloride 10 ml 06/10/24 14:00 06/11/24 06:18 Central Line Flush IV PUSH 10 ml Q8HR JAZMÍN Administration Torsemide 0 mg 06/11/24 09:20 Torsemide 20 Mg Tablet BY MOUTH .COMPLEX JAZMÍN Radiology Results: ITS Impressions Chest X-Ray 06/07/24 11:11 IMPRESSION: 1. Chronic mild left basilar atelectasis/scarring. No other acute cardiopulmonary disease. Head CT 06/07/24 12:48 IMPRESSION: No evidence for acute intracranial hemorrhage or calvarial fracture. Labs Labs: Laboratory Results - last 24 hr 06/10/24 06/10/24 06/10/24 09:55 11:10 12:21 WBC RBC Hgb Hct MCV MCH MCHC RDW Plt Count MPV Immature Gran % (Auto) Neut % (Auto) Lymph % (Auto) [place] % (Auto) Eos % (Auto) Baso % (Auto) Lymph # (Auto) [place] # (Auto) Eos # (Auto) Baso # (Auto) Abs Immat Gran (auto) Absolute Neuts (auto) Absolute Nucleated RBC Nucleated RBC % % Immature Plt Fraction Sodium Potassium Chloride Carbon Dioxide Anion Gap BUN Creatinine Estim Creat Clear Calc Estimated GFR Glucose POC Capillary Glucose 204 H 221 H 191 H Calcium Phosphorus Magnesium Total Bilirubin AST ALT Alkaline Phosphatase Total Protein Albumin Triglycerides 06/10/24 06/10/24 06/10/24 13:51 14:46 15:48 WBC RBC Hgb Hct MCV MCH MCHC RDW Plt Count MPV Immature Gran % (Auto) Neut % (Auto) Lymph % (Auto) [place] % (Auto) Eos % (Auto) Baso % (Auto) Lymph # (Auto) [place] # (Auto) Eos # (Auto) Baso # (Auto) Abs Immat Gran (auto) Absolute Neuts (auto) Absolute Nucleated RBC Nucleated RBC % % Immature Plt Fraction Sodium Potassium Chloride Carbon Dioxide Anion Gap BUN Creatinine Estim Creat Clear Calc Estimated GFR Glucose POC Capillary Glucose 205 H 172 H 225 H Calcium Phosphorus Magnesium Total Bilirubin AST ALT Alkaline Phosphatase Total Protein Albumin Triglycerides 06/10/24 06/10/24 06/10/24 16:48 17:47 18:51 WBC RBC Hgb Hct MCV MCH MCHC RDW Plt Count MPV Immature Gran % (Auto) Neut % (Auto) Lymph % (Auto) [place] % (Auto) Eos % (Auto) Baso % (Auto) Lymph # (Auto) [place] # (Auto) Eos # (Auto) Baso # (Auto) Abs Immat Gran (auto) Absolute Neuts (auto) Absolute Nucleated RBC Nucleated RBC % % Immature Plt Fraction Sodium Potassium Chloride Carbon Dioxide Anion Gap BUN Creatinine Estim Creat Clear Calc Estimated GFR Glucose POC Capillary Glucose 163 H 174 H 217 H Calcium Phosphorus Magnesium Total Bilirubin AST ALT Alkaline Phosphatase Total Protein Albumin Triglycerides 06/10/24 06/10/24 06/10/24 19:14 20:12 21:09 WBC RBC Hgb Hct MCV MCH MCHC RDW Plt Count MPV Immature Gran % (Auto) Neut % (Auto) Lymph % (Auto) [place] % (Auto) Eos % (Auto) Baso % (Auto) Lymph # (Auto) [place] # (Auto) Eos # (Auto) Baso # (Auto) Abs Immat Gran (auto) Absolute Neuts (auto) Absolute Nucleated RBC Nucleated RBC % % Immature Plt Fraction Sodium Potassium Chloride Carbon Dioxide Anion Gap BUN Creatinine Estim Creat Clear Calc Estimated GFR Glucose POC Capillary Glucose 246 H 185 H 241 H Calcium Phosphorus Magnesium Total Bilirubin AST ALT Alkaline Phosphatase Total Protein Albumin Triglycerides 06/10/24 06/10/24 06/11/24 22:12 23:13 00:16 WBC RBC Hgb Hct MCV MCH MCHC RDW Plt Count MPV Immature Gran % (Auto) Neut % (Auto) Lymph % (Auto) [place] % (Auto) Eos % (Auto) Baso % (Auto) Lymph # (Auto) [place] # (Auto) Eos # (Auto) Baso # (Auto) Abs Immat Gran (auto) Absolute Neuts (auto) Absolute Nucleated RBC Nucleated RBC % % Immature Plt Fraction Sodium Potassium Chloride Carbon Dioxide Anion Gap BUN Creatinine Estim Creat Clear Calc Estimated GFR Glucose POC Capillary Glucose 271 H 297 H 294 H Calcium Phosphorus Magnesium Total Bilirubin AST ALT Alkaline Phosphatase Total Protein Albumin Triglycerides 06/11/24 06/11/24 06/11/24 00:55 02:19 03:14 WBC RBC Hgb Hct MCV MCH MCHC RDW Plt Count MPV Immature Gran % (Auto) Neut % (Auto) Lymph % (Auto) [place] % (Auto) Eos % (Auto) Baso % (Auto) Lymph # (Auto) [place] # (Auto) Eos # (Auto) Baso # (Auto) Abs Immat Gran (auto) Absolute Neuts (auto) Absolute Nucleated RBC Nucleated RBC % % Immature Plt Fraction Sodium Potassium Chloride Carbon Dioxide Anion Gap BUN Creatinine Estim Creat Clear Calc Estimated GFR Glucose POC Capillary Glucose 284 H 304 H 328 H Calcium Phosphorus Magnesium Total Bilirubin AST ALT Alkaline Phosphatase Total Protein Albumin Triglycerides 06/11/24 06/11/24 06/11/24 04:13 05:08 06:15 WBC RBC Hgb Hct MCV MCH MCHC RDW Plt Count MPV Immature Gran % (Auto) Neut % (Auto) Lymph % (Auto) [place] % (Auto) Eos % (Auto) Baso % (Auto) Lymph # (Auto) [place] # (Auto) Eos # (Auto) Baso # (Auto) Abs Immat Gran (auto) Absolute Neuts (auto) Absolute Nucleated RBC Nucleated RBC % % Immature Plt Fraction Sodium Potassium Chloride Carbon Dioxide Anion Gap BUN Creatinine Estim Creat Clear Calc Estimated GFR Glucose POC Capillary Glucose 366 H 298 H 280 H Calcium Phosphorus Magnesium Total Bilirubin AST ALT Alkaline Phosphatase Total Protein Albumin Triglycerides 06/11/24 06/11/24 06/11/24 06:16 07:06 08:35 WBC 5.2 RBC 4.18 L Hgb 12.1 L Hct 36.3 L MCV 86.8 MCH 28.9 MCHC 33.3 RDW 14.7 H Plt Count 140 L MPV 11.4 H Immature Gran % (Auto) 0.2 Neut % (Auto) 61.8 Lymph % (Auto) 27.0 [place] % (Auto) 7.7 Eos % (Auto) 2.5 Baso % (Auto) 0.8 Lymph # (Auto) 1.41 [place] # (Auto) 0.4 Eos # (Auto) 0.1 Baso # (Auto) 0.0 Abs Immat Gran (auto) 0.01 Absolute Neuts (auto) 3.2 Absolute Nucleated RBC 0.000 Nucleated RBC % 0.0 % Immature Plt Fraction 7.9 Sodium 136 L Potassium 3.7 Chloride 105 Carbon Dioxide 21 L Anion Gap 10 BUN 7 L Creatinine 1.21 Estim Creat Clear Calc 69 Estimated GFR 60 Glucose 289 H POC Capillary Glucose 253 H 264 H Calcium 8.5 Phosphorus 3.2 Magnesium 1.5 L Total Bilirubin 0.5 AST 22 ALT 28 Alkaline Phosphatase 49 Total Protein 6.0 L Albumin 3.4 L Triglycerides 1074 H 06/11/24 09:16 WBC RBC Hgb Hct MCV MCH MCHC RDW Plt Count MPV Immature Gran % (Auto) Neut % (Auto) Lymph % (Auto) [place] % (Auto) Eos % (Auto) Baso % (Auto) Lymph # (Auto) [place] # (Auto) Eos # (Auto) Baso # (Auto) Abs Immat Gran (auto) Absolute Neuts (auto) Absolute Nucleated RBC Nucleated RBC % % Immature Plt Fraction Sodium Potassium Chloride Carbon Dioxide Anion Gap BUN Creatinine Estim Creat Clear Calc Estimated GFR Glucose POC Capillary Glucose 283 H Calcium Phosphorus Magnesium Total Bilirubin AST ALT Alkaline Phosphatase Total Protein Albumin Triglycerides Quality VTE Prophylaxis VTE prophylaxis: pharmacologic ordered
[2024-06-11 10:21] LABS: Glucose Point of Care 246 mg/dl (65-105)
[2024-06-11] MEDS: OMEGA 3 POLYUNSAT FATTY ACIDS 1 GM CAP PO (11:14)
[2024-06-11] MEDS: TORSEMIDE 20 MG TABLET BY MOUTH (11:15)
[2024-06-11] MEDS: FLUoxetine HCL 20 MG CAPSULE 40 MG PO (11:15)
[2024-06-11] MEDS: INSULIN HUMAN REGULAR (*BKC) 100 UNITS in SODIUM CHLORIDE 0.9% IV 99 ML 10 UNITS IV CONT ×2 (11:19→18:53)
[2024-06-11 11:22] LABS: Glucose Point of Care 240 mg/dl (65-105)
[2024-06-11 15:28] LABS: Glucose Point of Care 220 mg/dl (65-105)
[2024-06-11 15:28] LABS: Glucose Point of Care 198 mg/dl (65-105)
[2024-06-11 15:28] LABS: Glucose Point of Care 208 mg/dl (65-105)
[2024-06-11 15:28] LABS: Glucose Point of Care 202 mg/dl (65-105)
--- NOTE | 2024-06-11 15:40 | PM.IMPN ---
Progress Note: A&P Assessment and Plan (1) DKA (diabetic ketoacidosis): Code(s): E11.10 - Type 2 diabetes mellitus with ketoacidosis without coma Status: Acute Assessment and Plan: Patient admitted with DKA secondary to noncompliance. Remains acidotic anion gap has closed, but blood sugars remain elevated and patient is on insulin infusion Patient with hypertriglyceridemia for which the insulin infusion is being continued Serial labs ordered Replace magnesium and other electrolytes Patient on diabetic and low-fat diet -increase metformin to 1000 b.i.d. (2) Depression: Qualifiers: Depression Type: unspecified Qualified Code(s): F32.9 - Major depressive disorder, single episode, unspecified Code(s): F32.9 - Major depressive disorder, single episode, unspecified Status: Acute Assessment and Plan: Patient has history of depression now with suicidal ideation, on admission, patient admitted to suicide ideation and also a suicide attempt when he was 16 years old Sitter at bedside for one-to-one observation Suicide precautions Patient has not been taking his home medications for more than a month -06/11: started patient on home Rexulti and fluoxetine (3) CAD (coronary artery disease): Code(s): I25.10 - Atherosclerotic heart disease of [place] coronary artery without angina pectoris Status: Acute Assessment and Plan: History of coronary disease status post stent Continue aspirin beta-maulik statin and losartan -06/11: will start torsemide which patient takes at home (4) Hyperlipidemia: Qualifiers: Hyperlipidemia type: unspecified Qualified Code(s): E78.5 - Hyperlipidemia, unspecified Code(s): E78.5 - Hyperlipidemia, unspecified Status: Acute Assessment and Plan: Continue rosuvastatin and fenofibrate (5) Hypothyroidism: Code(s): E03.9 - Hypothyroidism, unspecified Status: Acute Assessment and Plan: TSH is high likely secondary to noncompliance as patient has not taken his thyroid pills for more than a month Continue Levothyroxine (6) JOSH (obstructive sleep apnea): Code(s): G47.33 - Obstructive sleep apnea (adult) (pediatric) Status: Acute Assessment and Plan: CPAP at night and while asleep during the day (7) Diabetic neuropathy: Code(s): E11.40 - Type 2 diabetes mellitus with diabetic neuropathy, unspecified Status: Acute Assessment and Plan: Continue Neurontin (8) Suicide ideation: Code(s): R45.851 - Suicidal ideations Status: Acute Assessment and Plan: One-to-one sitter Suicide precaution -once medically stable will have care coordination and crisis management evaluate the patient (9) Hypertriglyceridemia: Code(s): E78.1 - Pure hyperglyceridemia Status: Acute Assessment and Plan: Patient initial triglyceride check was> 2625 He was started insulin infusion for his DKA and triglyceride trending down, levels pending for today He does not have any abdominal pain His triglyceride level is likely secondary to uncontrolled diabetes and untreated hypothyroidism Continue insulin infusion, monitor triglyceride levels Continue statin, continue fenofibrate and metformin Low-fat diet -patient currently on insulin infusion and D10 infusion (10) HTN (hypertension): Code(s): I10 - Essential (primary) hypertension Status: Acute Assessment and Plan: Continue meds as above Subjective Date/time seen: 06/11/24 15:40 Interval history: Patient is still on insulin drip. His hypertriglyceridemia is getting improved. Review of Systems Review of Systems: 12 systems were reviewed and are negative except for as per HPI. All systems reviewed & are unremarkable except as noted in HPI and below (HPI) Exam Narrative: General: Pt is alert awake and in NAD Lungs/Chest: Trachea central Clear BS B/L, No crackles or wheezing. Cardiac: RRR. Normal S1 S2. No murmurs Circulation: Pedal pulses are intact and symmetrical. Abdomen: Normal bowel sounds. Obese. Soft. NT. ND. Extremities: No clubbing, cyanosis or edema. Warm : Johnson in place Neurologic: Follows commands. Moves all 4 extremities PERRL Skin: No Rash Psych: Normal speech, depressed and flat affect Objective Data Vital Signs Vital Signs: Vital Signs - 24 hr 06/10/24 16:00 06/10/24 16:00 06/10/24 16:00 Temperature 97.1 F L Pulse Rate 64 70 Respiratory Rate 13 Blood Pressure 155/70 H Pulse Oximetry 99 Oxygen Delivery Room Air 06/10/24 18:00 06/10/24 18:00 06/10/24 20:00 Temperature Pulse Rate 77 77 Respiratory Rate 15 Blood Pressure Pulse Oximetry 98 Oxygen Delivery Room Air 06/10/24 20:00 06/10/24 20:15 06/10/24 22:00 Temperature 98.3 F Pulse Rate 78 67 67 Respiratory Rate 18 Blood Pressure 150/71 H Pulse Oximetry 93 Oxygen Delivery 06/10/24 22:00 06/10/24 22:38 06/11/24 00:00 Temperature 97.7 F Pulse Rate 71 67 77 Respiratory Rate 16 22 H Blood Pressure 166/88 H 121/62 Pulse Oximetry 99 98 Oxygen Delivery 06/11/24 00:00 06/11/24 02:00 06/11/24 02:00 Temperature Pulse Rate 61 66 66 Respiratory Rate 12 Blood Pressure 127/61 Pulse Oximetry 99 Oxygen Delivery 06/11/24 04:00 06/11/24 04:00 06/11/24 04:00 Temperature 97.7 F Pulse Rate 59 L 59 L Respiratory Rate 12 Blood Pressure 148/65 H Pulse Oximetry 94 Oxygen Delivery CPAP 06/11/24 06:00 06/11/24 06:29 06/11/24 07:45 Temperature 98.2 F Pulse Rate 67 62 63 Respiratory Rate 16 16 Blood Pressure 145/76 H 145/76 H Pulse Oximetry 98 97 Oxygen Delivery 06/11/24 07:56 06/11/24 08:00 06/11/24 08:00 Temperature Pulse Rate 70 69 Respiratory Rate Blood Pressure Pulse Oximetry Oxygen Delivery Room Air 06/11/24 10:00 06/11/24 10:00 06/11/24 12:00 Temperature Pulse Rate 59 L 60 Respiratory Rate 12 Blood Pressure 122/70 Pulse Oximetry 100 Oxygen Delivery Room Air 06/11/24 12:00 06/11/24 14:00 06/11/24 14:00 Temperature 99.5 F Pulse Rate 57 L 59 L 59 L Respiratory Rate 16 12 Blood Pressure 135/66 117/63 Pulse Oximetry 95 97 Oxygen Delivery Intake/Output Intake/Output: Intake & Output 06/08/24 06/09/24 06/10/24 06/11/24 23:59 23:59 23:59 23:59 Intake Total 3653.1 4026.2 3045.8 1837.7 Output Total 2180 3500 1700 1875 Balance 1473.1 526.2 1345.8 -37.3 Meds/Results Medications: Active Medications Generic Name Dose Route Start Last Admin Trade Name Freq PRN Reason Stop Dose Admin Aspirin 81 mg 06/11/24 09:25 06/11/24 09:25 Aspirin 81 Mg Chewable Tablet PO Not Given DAILY JAZMÍN Dextrose 12.5 gm 06/07/24 13:12 Dextrose 50% 25 Gm/50 Ml Syringe IV PUSH PRN PRN Hypoglycemia Protocol Enoxaparin Sodium 40 mg 06/08/24 09:00 06/11/24 07:57 Enoxaparin 40 Mg/0.4 Ml Syringe SUB-Q 40 mg DAILY JAZMÍN Administration Fenofibrate 145 mg 06/08/24 09:45 06/11/24 07:57 Fenofibrate Nanocrystallized 145 Mg Tablet PO 145 mg QAM JAZMÍN Administration Fish Oil 1 gm 06/11/24 09:35 06/11/24 11:14 [place] 3 Polyunsat Fatty Acids 1 Gm Cap PO 1 gm QAM JAZMÍN Administration Fluoxetine HCl 40 mg 06/11/24 09:25 06/11/24 11:15 Fluoxetine Hcl 20 Mg Capsule PO 40 mg DAILY JAZMÍN Administration Gabapentin 800 mg 06/07/24 17:00 06/11/24 12:36 Gabapentin 400 Mg Capsule PO 800 mg TID JAZMÍN Administration Glucagon 1 mg 06/07/24 13:12 Glucagon For Inj 1 Mg Vial IM PRN PRN Hypoglycemia Protocol Glucose 15 gm 06/07/24 13:12 Glucose Oral Gel 15 Gm Of Glucse In 37.5 Gm Tube PO PRN PRN Hypoglycemia Protocol Dextrose 1,000 mls @ 100 mls/hr 06/07/24 13:12 Dextrose 5% 1,000 Ml IVPB PRN PRN Hypoglycemia Protocol Insulin Human Regular 100 100 mls @ 10 mls/hr 06/07/24 13:45 06/11/24 15:25 units/ Sodium Chloride IV CONT 10 units/hr .Q10H JAZMÍN 10 mls/hr Titration Protocol 10 UNITS/HR Dextrose 1,000 mls @ 75 mls/hr 06/10/24 08:25 06/11/24 08:35 Dextrose 10% IV CONT 25 mls/hr .[id number] JAZMÍN Infusion Labetalol HCl 20 mg 06/07/24 13:48 06/10/24 22:38 Labetalol Hcl Inj 100 Mg/20 Ml Vial IV PUSH 20 mg Q4H PRN Administration SBP > 160 and HR> 60 -1st choice Levothyroxine Sodium 225 mcg 06/08/24 06:30 06/11/24 06:18 Levothyroxine Sodium 75 Mcg Tablet PO 225 mcg DAILY@0630 JAZMÍN Administration Losartan Potassium 25 mg 06/08/24 09:00 06/11/24 07:56 Losartan Potassium 25 Mg Tablet PO 25 mg DAILY JAZMÍN Administration Metformin HCl 1,000 mg 06/11/24 17:00 Metformin Hcl 500 Mg Tablet PO BIDWM ON LICENSE OF [facility] Metoprolol Succinate 25 mg 06/08/24 09:00 06/11/24 07:56 Metoprolol Succinate Ext Rel 25 Mg Tabcr PO 25 mg QAM JAZMÍN Administration Miscellaneous Information 0 each 06/11/24 00:01 Brexpiprazole = Non Formulary XX 07/11/24 00:00 CLARIFY JAZMÍN Niacin 100 mg 06/12/24 09:00 Niacin 100 Mg Tablet PO DAILY ON LICENSE OF [facility] Non-Formulary Medication 1 mg 06/11/24 09:25 Brexpiprazole [Rexulti] PO 07/11/24 09:24 DAILY ON LICENSE OF [facility] Ondansetron HCl 4 mg 06/07/24 13:53 06/07/24 19:30 Ondansetron Inj 4 Mg/2 Ml Vial IV PUSH 4 mg Q4H PRN Administration Nausea And Vomiting Pantoprazole Sodium 40 mg 06/08/24 09:00 06/11/24 07:57 Pantoprazole 40 Mg Tablet PO 40 mg QAM ON LICENSE OF [facility] Administration Rosuvastatin Calcium 40 mg 06/08/24 09:00 06/11/24 07:57 Rosuvastatin 20 Mg Tablet PO 40 mg QAM ON LICENSE OF [facility] Administration Sodium Chloride 20 ml 06/10/24 10:01 Central Line Flush IV PUSH PRN PRN after blood draws Sodium Chloride 10 ml 06/10/24 10:01 Central Line Flush IV PUSH PRN PRN with TPN bag changes Sodium Chloride 10 ml 06/10/24 14:00 06/11/24 13:31 Central Line Flush IV PUSH 10 ml Q8HR JAZMÍN Administration Torsemide 20 mg 06/11/24 09:20 06/11/24 11:15 Torsemide 20 Mg Tablet BY MOUTH 20 mg QAM ON LICENSE OF [facility] Administration Radiology Results: ITS Impressions Chest X-Ray 06/07/24 11:11 IMPRESSION: 1. Chronic mild left basilar atelectasis/scarring. No other acute cardiopulmonary disease. Head CT 06/07/24 12:48 IMPRESSION: No evidence for acute intracranial hemorrhage or calvarial fracture. Labs Labs: Laboratory Results - last 24 hr 06/10/24 06/10/24 06/10/24 14:46 15:48 16:48 WBC RBC Hgb Hct MCV MCH MCHC RDW Plt Count MPV Immature Gran % (Auto) Neut % (Auto) Lymph % (Auto) [place] % (Auto) Eos % (Auto) Baso % (Auto) Lymph # (Auto) [place] # (Auto) Eos # (Auto) Baso # (Auto) Abs Immat Gran (auto) Absolute Neuts (auto) Absolute Nucleated RBC Nucleated RBC % % Immature Plt Fraction Sodium Potassium Chloride Carbon Dioxide Anion Gap BUN Creatinine Estim Creat Clear Calc Estimated GFR Glucose POC Capillary Glucose 172 H 225 H 163 H Calcium Phosphorus Magnesium Total Bilirubin AST ALT Alkaline Phosphatase Total Protein Albumin Triglycerides 06/10/24 06/10/24 06/10/24 17:47 18:51 19:14 WBC RBC Hgb Hct MCV MCH MCHC RDW Plt Count MPV Immature Gran % (Auto) Neut % (Auto) Lymph % (Auto) [place] % (Auto) Eos % (Auto) Baso % (Auto) Lymph # (Auto) [place] # (Auto) Eos # (Auto) Baso # (Auto) Abs Immat Gran (auto) Absolute Neuts (auto) Absolute Nucleated RBC Nucleated RBC % % Immature Plt Fraction Sodium Potassium Chloride Carbon Dioxide Anion Gap BUN Creatinine Estim Creat Clear Calc Estimated GFR Glucose POC Capillary Glucose 174 H 217 H 246 H Calcium Phosphorus Magnesium Total Bilirubin AST ALT Alkaline Phosphatase Total Protein Albumin Triglycerides 06/10/24 06/10/24 06/10/24 20:12 21:09 22:12 WBC RBC Hgb Hct MCV MCH MCHC RDW Plt Count MPV Immature Gran % (Auto) Neut % (Auto) Lymph % (Auto) [place] % (Auto) Eos % (Auto) Baso % (Auto) Lymph # (Auto) [place] # (Auto) Eos # (Auto) Baso # (Auto) Abs Immat Gran (auto) Absolute Neuts (auto) Absolute Nucleated RBC Nucleated RBC % % Immature Plt Fraction Sodium Potassium Chloride Carbon Dioxide Anion Gap BUN Creatinine Estim Creat Clear Calc Estimated GFR Glucose POC Capillary Glucose 185 H 241 H 271 H Calcium Phosphorus Magnesium Total Bilirubin AST ALT Alkaline Phosphatase Total Protein Albumin Triglycerides 06/10/24 06/11/24 06/11/24 23:13 00:16 00:55 WBC RBC Hgb Hct MCV MCH MCHC RDW Plt Count MPV Immature Gran % (Auto) Neut % (Auto) Lymph % (Auto) [place] % (Auto) Eos % (Auto) Baso % (Auto) Lymph # (Auto) [place] # (Auto) Eos # (Auto) Baso # (Auto) Abs Immat Gran (auto) Absolute Neuts (auto) Absolute Nucleated RBC Nucleated RBC % % Immature Plt Fraction Sodium Potassium Chloride Carbon Dioxide Anion Gap BUN Creatinine Estim Creat Clear Calc Estimated GFR Glucose POC Capillary Glucose 297 H 294 H 284 H Calcium Phosphorus Magnesium Total Bilirubin AST ALT Alkaline Phosphatase Total Protein Albumin Triglycerides 06/11/24 06/11/24 06/11/24 02:19 03:14 04:13 WBC RBC Hgb Hct MCV MCH MCHC RDW Plt Count MPV Immature Gran % (Auto) Neut % (Auto) Lymph % (Auto) [place] % (Auto) Eos % (Auto) Baso % (Auto) Lymph # (Auto) [place] # (Auto) Eos # (Auto) Baso # (Auto) Abs Immat Gran (auto) Absolute Neuts (auto) Absolute Nucleated RBC Nucleated RBC % % Immature Plt Fraction Sodium Potassium Chloride Carbon Dioxide Anion Gap BUN Creatinine Estim Creat Clear Calc Estimated GFR Glucose POC Capillary Glucose 304 H 328 H 366 H Calcium Phosphorus Magnesium Total Bilirubin AST ALT Alkaline Phosphatase Total Protein Albumin Triglycerides 06/11/24 06/11/24 06/11/24 05:08 06:15 06:16 WBC 5.2 RBC 4.18 L Hgb 12.1 L Hct 36.3 L MCV 86.8 MCH 28.9 MCHC 33.3 RDW 14.7 H Plt Count 140 L MPV 11.4 H Immature Gran % (Auto) 0.2 Neut % (Auto) 61.8 Lymph % (Auto) 27.0 [place] % (Auto) 7.7 Eos % (Auto) 2.5 Baso % (Auto) 0.8 Lymph # (Auto) 1.41 [place] # (Auto) 0.4 Eos # (Auto) 0.1 Baso # (Auto) 0.0 Abs Immat Gran (auto) 0.01 Absolute Neuts (auto) 3.2 Absolute Nucleated RBC 0.000 Nucleated RBC % 0.0 % Immature Plt Fraction 7.9 Sodium 136 L Potassium 3.7 Chloride 105 Carbon Dioxide 21 L Anion Gap 10 BUN 7 L Creatinine 1.21 Estim Creat Clear Calc 69 Estimated GFR 60 Glucose 289 H POC Capillary Glucose 298 H 280 H Calcium 8.5 Phosphorus 3.2 Magnesium 1.5 L Total Bilirubin 0.5 AST 22 ALT 28 Alkaline Phosphatase 49 Total Protein 6.0 L Albumin 3.4 L Triglycerides 1074 H 06/11/24 06/11/24 06/11/24 07:06 08:35 09:16 WBC RBC Hgb Hct MCV MCH MCHC RDW Plt Count MPV Immature Gran % (Auto) Neut % (Auto) Lymph % (Auto) [place] % (Auto) Eos % (Auto) Baso % (Auto) Lymph # (Auto) [place] # (Auto) Eos # (Auto) Baso # (Auto) Abs Immat Gran (auto) Absolute Neuts (auto) Absolute Nucleated RBC Nucleated RBC % % Immature Plt Fraction Sodium Potassium Chloride Carbon Dioxide Anion Gap BUN Creatinine Estim Creat Clear Calc Estimated GFR Glucose POC Capillary Glucose 253 H 264 H 283 H Calcium Phosphorus Magnesium Total Bilirubin AST ALT Alkaline Phosphatase Total Protein Albumin Triglycerides 06/11/24 06/11/24 06/11/24 10:17 11:17 12:25 WBC RBC Hgb Hct MCV MCH MCHC RDW Plt Count MPV Immature Gran % (Auto) Neut % (Auto) Lymph % (Auto) [place] % (Auto) Eos % (Auto) Baso % (Auto) Lymph # (Auto) [place] # (Auto) Eos # (Auto) Baso # (Auto) Abs Immat Gran (auto) Absolute Neuts (auto) Absolute Nucleated RBC Nucleated RBC % % Immature Plt Fraction Sodium Potassium Chloride Carbon Dioxide Anion Gap BUN Creatinine Estim Creat Clear Calc Estimated GFR Glucose POC Capillary Glucose 246 H 240 H 198 H Calcium Phosphorus Magnesium Total Bilirubin AST ALT Alkaline Phosphatase Total Protein Albumin Triglycerides 06/11/24 06/11/24 06/11/24 13:20 14:17 15:25 WBC RBC Hgb Hct MCV MCH MCHC RDW Plt Count MPV Immature Gran % (Auto) Neut % (Auto) Lymph % (Auto) [place] % (Auto) Eos % (Auto) Baso % (Auto) Lymph # (Auto) [place] # (Auto) Eos # (Auto) Baso # (Auto) Abs Immat Gran (auto) Absolute Neuts (auto) Absolute Nucleated RBC Nucleated RBC % % Immature Plt Fraction Sodium Potassium Chloride Carbon Dioxide Anion Gap BUN Creatinine Estim Creat Clear Calc Estimated GFR Glucose POC Capillary Glucose 202 H 220 H 208 H Calcium Phosphorus Magnesium Total Bilirubin AST ALT Alkaline Phosphatase Total Protein Albumin Triglycerides Quality VTE Prophylaxis VTE prophylaxis: pharmacologic ordered Hospitalist MIPS Advance Care Plan I have confirmed that the patient's Advanced Care Plan is present, code status is documented, or surrogate decision maker is listed in patient medical record.: Yes Medication Reconciliation I have utilized all available resources to obtain, update and review the patients current medications (includes all prescriptions, OTC, herbals, cannabis, and nutritional supplements).: Yes
[2024-06-11] MEDS: metFORMIN HCL 500 MG TABLET 1000 MG PO (16:03)
--- NOTE | 2024-06-11 16:12 | PHAR ---
The patient's home med of Rexulti 1mg tab has been verified.
[2024-06-11] MEDS: BREXPIPRAZOLE 1 MG 1 EACH PO (16:15)
[2024-06-11] MEDS: DEXTROSE 10% 1,000 ML 25 ML IV CONT (18:49)
[2024-06-11 19:06] LABS: Glucose Point of Care 244 mg/dl (65-105)
[2024-06-11 19:06] LABS: Glucose Point of Care 225 mg/dl (65-105)
[2024-06-11 19:06] LABS: Glucose Point of Care 229 mg/dl (65-105)
[2024-06-11 19:06] LABS: Glucose Point of Care 207 mg/dl (65-105)
[2024-06-11 20:43] LABS: Glucose Point of Care 181 mg/dl (65-105)
[2024-06-11 21:29] LABS: Glucose Point of Care 185 mg/dl (65-105)
[2024-06-11 22:07] LABS: Glucose Point of Care 152 mg/dl (65-105)
[2024-06-11 23:00] LABS: Glucose Point of Care 147 mg/dl (65-105)
[2024-06-12] VITALS (12 sets, daily range): BP systolic 108–158; BP diastolic 58–89; PULSE 52–61; RESP 10–20; TEMP 36.4–36.9; O2SAT 94–99
[2024-06-12 00:15] LABS: Glucose Point of Care 135 mg/dl (65-105)
[2024-06-12 01:08] LABS: Glucose Point of Care 136 mg/dl (65-105)
[2024-06-12 02:05] LABS: Glucose Point of Care 113 mg/dl (65-105)
[2024-06-12 03:42] LABS: Glucose Point of Care 127 mg/dl (65-105)
[2024-06-12 04:07] LABS: Glucose Point of Care 154 mg/dl (65-105)
[2024-06-12 04:33] LABS: Basophils Percent Auto 0.9 % (0.2-1.2); Eosinophils Absolute Auto 0.2 K/mm3 (0-0.3); Eosinophils Percent Auto 3.8 % (0-4.4); Hematocrit 35.6 % (42.0-52.0); Hemoglobin 11.4 g/dL (14.0-18.0); Immature Granulocyte Absolute 0.02 K/mm3 (0.00-0.031); Immature Granulocyte Percent A 0.4 % (0-0.5); Immature Platelet Fraction Pct 9.1 % (0.9-11.2); Lymphocytes Absolute Auto 1.49 K/mm3 (0.9-3.2); Lymphocytes Percent Auto 31.8 % (18.3-44.2); Mean Corpuscular Hemoglobin 28.5 pg (26-34); Monocytes Absolute Auto 0.4 K/mm3 (0.1-0.6); Monocytes Percent Auto 8.1 % (2.6-8.5); Neutrophils Absolute Auto 2.6 K/mm3 (1.3-6.7); Platelet Count Result 131 k/mm3 (150-375); Red Cell Distribution Width 14.9 % (11.5-14.5); White Blood Count 4.7 K/mm3 (4.5-10.0)
[2024-06-12 04:48] LABS: Alanine Aminotransferase 24 U/L (6-50); Albumin Level 3.3 g/dL (3.5-5.1); Alkaline Phosphatase 43 U/L (38-126); Anion Gap 9 mmol/L (4-12); Aspartate Amino Transferase 20 U/L (17-59); Bilirubin,Total 0.4 mg/dL (0.2-1.3); Blood Urea Nitrogen 9 mg/dL (9-20); Calcium 8.6 mg/dL (8.4-10.2); Carbon Dioxide 24 mmol/L (22-30); Chloride 105 mmol/L (98-107); Estimated CRCL calculation 62 ml/min; Estimated Glomerular Filt Rate 53; Glucose 137 mg/dL (65-110); Magnesium 1.5 mg/dL (1.6-2.3); Potassium 3.6 mmol/L (3.4-5.0); Sodium 138 mmol/L (137-145)
[2024-06-12 05:08] LABS: Glucose Point of Care 147 mg/dl (65-105)
[2024-06-12] MEDS: INSULIN HUMAN REGULAR (*BKC) 100 UNITS in SODIUM CHLORIDE 0.9% IV 99 ML 10 UNITS IV CONT (05:11)
[2024-06-12 05:21] LABS: Triglycerides 582 mg/dL (<150)
[2024-06-12 06:14] LABS: Glucose Point of Care 117 mg/dl (65-105)
[2024-06-12] MEDS: LEVOTHYROXINE SODIUM 75 MCG TABLET 225 MCG PO (06:14)
[2024-06-12] MEDS: CENTRAL LINE FLUSH 10 ML IV PUSH ×3 (07:00→20:19)
[2024-06-12 07:41] LABS: Glucose Point of Care 118 mg/dl (65-105)
--- NOTE | 2024-06-12 07:44 | WPDINTPN ---
Progress Note: A&P Assessment and Plan (1) Hypertriglyceridemia: Code(s): E78.1 - Pure hyperglyceridemia Status: Acute Assessment and Plan: Patient initial triglyceride check was> 2625 He was started insulin infusion for his DKA and triglyceride trending down, levels pending for today He does not have any abdominal pain His triglyceride level is likely secondary to uncontrolled diabetes and untreated hypothyroidism Continue insulin infusion, monitor triglyceride levels Continue statin, continue fenofibrate and metformin Low-fat diet -patient currently on insulin infusion and D10 infusion -triglycerides 582 this morning, will discontinue insulin infusion in D10 infusion -start patient on Lantus (2) DKA (diabetic ketoacidosis): Code(s): E11.10 - Type 2 diabetes mellitus with ketoacidosis without coma Status: Acute Assessment and Plan: Patient admitted with DKA secondary to noncompliance. Remains acidotic anion gap has closed, but blood sugars remain elevated and patient is on insulin infusion Patient with hypertriglyceridemia for which the insulin infusion is being continued Serial labs ordered Replace magnesium and other electrolytes Patient on diabetic and low-fat diet -increase metformin to 1000 b.i.d. 06/12: Start patient on Lantus as insulin infusion D10 infusion are going to be discontinued (3) Depression: Qualifiers: Depression Type: unspecified Qualified Code(s): F32.9 - Major depressive disorder, single episode, unspecified Code(s): F32.9 - Major depressive disorder, single episode, unspecified Status: Acute Assessment and Plan: Patient has history of depression now with suicidal ideation, on admission, patient admitted to suicide ideation and also a suicide attempt when he was 16 years old Sitter at bedside for one-to-one observation Suicide precautions Patient has not been taking his home medications for more than a month Continue home Rexulti and fluoxetine (4) CAD (coronary artery disease): Code(s): I25.10 - Atherosclerotic heart disease of lime coronary artery without angina pectoris Status: Acute Assessment and Plan: History of coronary disease status post stent Continue aspirin beta-maulik statin and losartan -continue torsemide which patient takes at home (5) Hyperlipidemia: Qualifiers: Hyperlipidemia type: unspecified Qualified Code(s): E78.5 - Hyperlipidemia, unspecified Code(s): E78.5 - Hyperlipidemia, unspecified Status: Acute Assessment and Plan: Continue rosuvastatin and fenofibrate (6) Hypothyroidism: Code(s): E03.9 - Hypothyroidism, unspecified Status: Acute Assessment and Plan: TSH is high likely secondary to noncompliance as patient has not taken his thyroid pills for more than a month Continue Levothyroxine (7) JOSH (obstructive sleep apnea): Code(s): G47.33 - Obstructive sleep apnea (adult) (pediatric) Status: Acute Assessment and Plan: CPAP at night and while asleep during the day (8) Diabetic neuropathy: Code(s): E11.40 - Type 2 diabetes mellitus with diabetic neuropathy, unspecified Status: Acute Assessment and Plan: Continue Neurontin (9) Suicide ideation: Code(s): R45.851 - Suicidal ideations Status: Acute Assessment and Plan: One-to-one sitter Suicide precaution -once medically stable will have care coordination and crisis management evaluate the patient (10) HTN (hypertension): Code(s): I10 - Essential (primary) hypertension Status: Acute Assessment and Plan: Continue meds as above Plan DVT prophylaxis -Lovenox Stress ulcer prophylaxis -PPI Nutrition -diabetic and low-fat diet Code Status - Full Code Total Critical Care Time -32 minute Discussed with patient updated with his condition and plan care. Patient is aware that his insulin infusion in D10 infusion ago been discontinued as his triglycerides levels have come down to 582. He will be transitioned to Lantus Due to a high probability of clinically significant, life threatening deterioration, the patient required my highest level of preparedness to intervene emergently and I personally spent this critical care time directly and personally managing the patient. This critical care time included obtaining a history; examining the patient; pulse oximetry; ordering and review of studies; arranging urgent treatment with development of a management plan; evaluation of patient's response to treatment; frequent reassessment; and discussions with other providers. It was exclusive of separately billable procedures and treating other patients and teaching time. Please see Assessment and Plan section and the rest of the note for further information on patient assessment and treatment This dictation may have been done utilizing a voice recognition system. Attempts have been made to correct errors. However, there may be uncorrected grammatical, spelling, and recognitions errors present. Subjective Date/time seen: 06/12/24 07:44 Interval history: Reason for consult: DKA, depression, suicidal behavior/ideation, severe hypothyroidism, hypertriglyceridemia, noncompliance of medication 06/11/2024: Patient seen and examined the ICU, is awake, alert, oriented, remains on insulin infusion and D10 infusion. Patient seems to be a little less upset this morning. Denies any nausea, vomiting, abdominal pain, shortness of breath, chest pain at this time. Urine output has been adequate, hemodynamically stable, afebrile. Triglycerides are down to 582 Review of Systems Review of Systems: All systems reviewed & are unremarkable except as noted in HPI and below (HPI) Exam Narrative: General: Pt is alert awake and in NAD Lungs/Chest: Trachea central Clear BS B/L, No crackles or wheezing. Cardiac: RRR. Normal S1 S2. No murmurs Circulation: Pedal pulses are intact and symmetrical. Abdomen: Normal bowel sounds. Obese. Soft. NT. ND. Extremities: No clubbing, cyanosis or edema. Warm : Johnson in place Neurologic: Follows commands. Moves all 4 extremities PERRL Skin: No Rash Psych: Normal speech, depressed and flat affect Objective Data Vital Signs Vital Signs: Vital Signs - 24 hr 06/11/24 07:45 06/11/24 07:56 06/11/24 08:00 Temperature 98.2 F Pulse Rate 63 70 Respiratory Rate 16 Blood Pressure 145/76 H Pulse Oximetry 97 Oxygen Delivery Room Air 06/11/24 08:00 06/11/24 10:00 06/11/24 10:00 Temperature Pulse Rate 69 59 L 60 Respiratory Rate 12 Blood Pressure 122/70 Pulse Oximetry 100 Oxygen Delivery 06/11/24 12:00 06/11/24 12:00 06/11/24 12:00 Temperature 99.5 F Pulse Rate 70 57 L Respiratory Rate 16 Blood Pressure 135/66 Pulse Oximetry 95 Oxygen Delivery Room Air 06/11/24 14:00 06/11/24 14:00 06/11/24 16:00 Temperature Pulse Rate 59 L 59 L Respiratory Rate 12 Blood Pressure 117/63 Pulse Oximetry 97 Oxygen Delivery Room Air 06/11/24 16:00 06/11/24 16:00 06/11/24 18:00 Temperature 98.6 F Pulse Rate 65 57 L 57 L Respiratory Rate 12 Blood Pressure 118/66 Pulse Oximetry 98 Oxygen Delivery 06/11/24 18:00 06/11/24 20:00 06/11/24 20:00 Temperature 98.4 F Pulse Rate 57 L 61 Respiratory Rate 13 16 Blood Pressure 132/74 145/65 H Pulse Oximetry 99 96 Oxygen Delivery Room Air 06/11/24 20:00 06/11/24 22:00 06/11/24 22:00 Temperature Pulse Rate 61 59 L 59 L Respiratory Rate 15 Blood Pressure 114/62 Pulse Oximetry 97 Oxygen Delivery 06/11/24 22:55 06/12/24 00:00 06/12/24 00:00 Temperature 98.4 F Pulse Rate 66 61 Respiratory Rate 13 17 Blood Pressure 110/70 Pulse Oximetry 95 97 Oxygen Delivery Autopap CPAP 06/12/24 00:00 06/12/24 02:00 06/12/24 02:00 Temperature Pulse Rate 61 58 L 58 L Respiratory Rate 12 Blood Pressure 111/59 L Pulse Oximetry 94 Oxygen Delivery 06/12/24 02:15 06/12/24 04:00 06/12/24 04:00 Temperature 97.8 F Pulse Rate 59 L 53 L Respiratory Rate 17 10 L Blood Pressure 108/58 L Pulse Oximetry 95 95 Oxygen Delivery Autopap CPAP 06/12/24 04:00 06/12/24 06:00 06/12/24 06:00 Temperature Pulse Rate 53 L 52 L 52 L Respiratory Rate 11 L Blood Pressure 111/67 Pulse Oximetry 97 Oxygen Delivery Intake/Output Intake/Output: Intake & Output 06/09/24 06/10/24 06/11/24 06/12/24 23:59 23:59 23:59 23:59 Intake Total 4026.2 3045.8 2643.0 981.9 Output Total 3500 1700 2775 825 Balance 526.2 1345.8 -132.0 156.9 Meds/Results Medications: Active Medications Generic Name Dose Route Start Last Admin Trade Name Freq PRN Reason Stop Dose Admin Aspirin 81 mg 06/11/24 09:25 06/11/24 09:25 Aspirin 81 Mg Chewable Tablet PO Not Given DAILY JAZMÍN Dextrose 12.5 gm 06/07/24 13:12 Dextrose 50% 25 Gm/50 Ml Syringe IV PUSH PRN PRN Hypoglycemia Protocol Enoxaparin Sodium 40 mg 06/08/24 09:00 06/11/24 07:57 Enoxaparin 40 Mg/0.4 Ml Syringe SUB-Q 40 mg DAILY JAZMÍN Administration Fenofibrate 145 mg 06/08/24 09:45 06/11/24 07:57 Fenofibrate Nanocrystallized 145 Mg Tablet PO 145 mg QAM JAZMÍN Administration Fish Oil 1 gm 06/11/24 09:35 06/11/24 11:14 [place] 3 Polyunsat Fatty Acids 1 Gm Cap PO 1 gm QAM JAZMÍN Administration Fluoxetine HCl 40 mg 06/11/24 09:25 06/11/24 11:15 Fluoxetine Hcl 20 Mg Capsule PO 40 mg DAILY JAZMÍN Administration Gabapentin 800 mg 06/07/24 17:00 06/11/24 16:03 Gabapentin 400 Mg Capsule PO 800 mg TID JAZMÍN Administration Glucagon 1 mg 06/07/24 13:12 Glucagon For Inj 1 Mg Vial IM PRN PRN Hypoglycemia Protocol Glucose 15 gm 06/07/24 13:12 Glucose Oral Gel 15 Gm Of Glucse In 37.5 Gm Tube PO PRN PRN Hypoglycemia Protocol Dextrose 1,000 mls @ 100 mls/hr 06/07/24 13:12 Dextrose 5% 1,000 Ml IVPB PRN PRN Hypoglycemia Protocol Insulin Human Regular 100 100 mls @ 10 mls/hr 06/07/24 13:45 06/12/24 06:10 units/ Sodium Chloride IV CONT 10 units/hr .Q10H JAZMÍN 10 mls/hr Titration Protocol 10 UNITS/HR Dextrose 1,000 mls @ 75 mls/hr 06/10/24 08:25 06/12/24 06:10 Dextrose 10% IV CONT 150 mls/hr .[id number] JAZMÍN Infusion Magnesium Sulfate/Dextrose 3 gm in 100 mls @ 33.333 mls/hr 06/12/24 07:07 Magnesium Sulfate 3gm/[id number] IVPB 06/12/24 10:06 ONCE ONE Insulin Glargine 40 units 06/12/24 09:00 Insulin Glargine (*Bkc) 100 Units/Ml SUB-Q DAILY JAZMÍN Labetalol HCl 20 mg 06/07/24 13:48 06/10/24 22:38 Labetalol Hcl Inj 100 Mg/20 Ml Vial IV PUSH 20 mg Q4H PRN Administration SBP > 160 and HR> 60 -1st choice Levothyroxine Sodium 225 mcg 06/08/24 06:30 06/12/24 06:14 Levothyroxine Sodium 75 Mcg Tablet PO 225 mcg DAILY@0630 JAZMÍN Administration Losartan Potassium 25 mg 06/08/24 09:00 06/11/24 07:56 Losartan Potassium 25 Mg Tablet PO 25 mg DAILY JAZMÍN Administration Metformin HCl 1,000 mg 06/11/24 17:00 06/11/24 16:03 Metformin Hcl 500 Mg Tablet PO 1,000 mg BIDWM JAZMÍN Administration Metoprolol Succinate 25 mg 06/08/24 09:00 06/11/24 07:56 Metoprolol Succinate Ext Rel 25 Mg Tabcr PO 25 mg QAM JAZMÍN Administration Niacin 100 mg 06/12/24 09:00 Niacin 100 Mg Tablet PO DAILY JAZMÍN Nonform 1 mg 06/11/24 16:15 06/11/24 16:15 Brexpiprazole [ PO 07/11/24 16:14 1 mg Rexulti] 1 Mg Tablet DAILY JAZMÍN Administration Ondansetron HCl 4 mg 06/07/24 13:53 06/07/24 19:30 Ondansetron Inj 4 Mg/2 Ml Vial IV PUSH 4 mg Q4H PRN Administration Nausea And Vomiting Pantoprazole Sodium 40 mg 06/08/24 09:00 06/11/24 07:57 Pantoprazole 40 Mg Tablet PO 40 mg QAM JAZMÍN Administration Potassium Chloride 40 meq 06/12/24 07:09 Potassium Chloride 20 Meq Er Tablet PO 06/12/24 07:10 ONCE ONE Rosuvastatin Calcium 40 mg 06/08/24 09:00 06/11/24 07:57 Rosuvastatin 20 Mg Tablet PO 40 mg QAM JAZMÍN Administration Sodium Chloride 20 ml 06/10/24 10:01 Central Line Flush IV PUSH PRN PRN after blood draws Sodium Chloride 10 ml 06/10/24 10:01 Central Line Flush IV PUSH PRN PRN with TPN bag changes Sodium Chloride 10 ml 06/10/24 14:00 06/12/24 07:00 Central Line Flush IV PUSH 10 ml Q8HR JAZMÍN Administration Torsemide 20 mg 06/11/24 09:20 06/11/24 11:15 Torsemide 20 Mg Tablet BY MOUTH 20 mg QAM JAZMÍN Administration Radiology Results: ITS Impressions Chest X-Ray 06/07/24 11:11 IMPRESSION: 1. Chronic mild left basilar atelectasis/scarring. No other acute cardiopulmonary disease. Head CT 06/07/24 12:48 IMPRESSION: No evidence for acute intracranial hemorrhage or calvarial fracture. Labs Labs: Laboratory Results - last 24 hr 06/11/24 06/11/24 06/11/24 07:06 08:35 09:16 WBC RBC Hgb Hct MCV MCH MCHC RDW Plt Count MPV Immature Gran % (Auto) Neut % (Auto) Lymph % (Auto) [place] % (Auto) Eos % (Auto) Baso % (Auto) Lymph # (Auto) [place] # (Auto) Eos # (Auto) Baso # (Auto) Abs Immat Gran (auto) Absolute Neuts (auto) Absolute Nucleated RBC Nucleated RBC % % Immature Plt Fraction Sodium Potassium Chloride Carbon Dioxide Anion Gap BUN Creatinine Estim Creat Clear Calc Estimated GFR Glucose POC Capillary Glucose 253 H 264 H 283 H Calcium Magnesium Total Bilirubin AST ALT Alkaline Phosphatase Total Protein Albumin Triglycerides 06/11/24 06/11/24 06/11/24 10:17 11:17 12:25 WBC RBC Hgb Hct MCV MCH MCHC RDW Plt Count MPV Immature Gran % (Auto) Neut % (Auto) Lymph % (Auto) [place] % (Auto) Eos % (Auto) Baso % (Auto) Lymph # (Auto) [place] # (Auto) Eos # (Auto) Baso # (Auto) Abs Immat Gran (auto) Absolute Neuts (auto) Absolute Nucleated RBC Nucleated RBC % % Immature Plt Fraction Sodium Potassium Chloride Carbon Dioxide Anion Gap BUN Creatinine Estim Creat Clear Calc Estimated GFR Glucose POC Capillary Glucose 246 H 240 H 198 H Calcium Magnesium Total Bilirubin AST ALT Alkaline Phosphatase Total Protein Albumin Triglycerides 06/11/24 06/11/24 06/11/24 13:20 14:17 15:25 WBC RBC Hgb Hct MCV MCH MCHC RDW Plt Count MPV Immature Gran % (Auto) Neut % (Auto) Lymph % (Auto) [place] % (Auto) Eos % (Auto) Baso % (Auto) Lymph # (Auto) [place] # (Auto) Eos # (Auto) Baso # (Auto) Abs Immat Gran (auto) Absolute Neuts (auto) Absolute Nucleated RBC Nucleated RBC % % Immature Plt Fraction Sodium Potassium Chloride Carbon Dioxide Anion Gap BUN Creatinine Estim Creat Clear Calc Estimated GFR Glucose POC Capillary Glucose 202 H 220 H 208 H Calcium Magnesium Total Bilirubin AST ALT Alkaline Phosphatase Total Protein Albumin Triglycerides 06/11/24 06/11/24 06/11/24 16:11 17:09 18:11 WBC RBC Hgb Hct MCV MCH MCHC RDW Plt Count MPV Immature Gran % (Auto) Neut % (Auto) Lymph % (Auto) [place] % (Auto) Eos % (Auto) Baso % (Auto) Lymph # (Auto) [place] # (Auto) Eos # (Auto) Baso # (Auto) Abs Immat Gran (auto) Absolute Neuts (auto) Absolute Nucleated RBC Nucleated RBC % % Immature Plt Fraction Sodium Potassium Chloride Carbon Dioxide Anion Gap BUN Creatinine Estim Creat Clear Calc Estimated GFR Glucose POC Capillary Glucose 225 H 244 H 229 H Calcium Magnesium Total Bilirubin AST ALT Alkaline Phosphatase Total Protein Albumin Triglycerides 06/11/24 06/11/24 06/11/24 19:03 20:09 21:07 WBC RBC Hgb Hct MCV MCH MCHC RDW Plt Count MPV Immature Gran % (Auto) Neut % (Auto) Lymph % (Auto) [place] % (Auto) Eos % (Auto) Baso % (Auto) Lymph # (Auto) [place] # (Auto) Eos # (Auto) Baso # (Auto) Abs Immat Gran (auto) Absolute Neuts (auto) Absolute Nucleated RBC Nucleated RBC % % Immature Plt Fraction Sodium Potassium Chloride Carbon Dioxide Anion Gap BUN Creatinine Estim Creat Clear Calc Estimated GFR Glucose POC Capillary Glucose 207 H 181 H 185 H Calcium Magnesium Total Bilirubin AST ALT Alkaline Phosphatase Total Protein Albumin Triglycerides 06/11/24 06/11/24 06/12/24 22:05 22:58 00:11 WBC RBC Hgb Hct MCV MCH MCHC RDW Plt Count MPV Immature Gran % (Auto) Neut % (Auto) Lymph % (Auto) [place] % (Auto) Eos % (Auto) Baso % (Auto) Lymph # (Auto) [place] # (Auto) Eos # (Auto) Baso # (Auto) Abs Immat Gran (auto) Absolute Neuts (auto) Absolute Nucleated RBC Nucleated RBC % % Immature Plt Fraction Sodium Potassium Chloride Carbon Dioxide Anion Gap BUN Creatinine Estim Creat Clear Calc Estimated GFR Glucose POC Capillary Glucose 152 H 147 H 135 H Calcium Magnesium Total Bilirubin AST ALT Alkaline Phosphatase Total Protein Albumin Triglycerides 06/12/24 06/12/24 06/12/24 01:03 02:01 03:16 WBC RBC Hgb Hct MCV MCH MCHC RDW Plt Count MPV Immature Gran % (Auto) Neut % (Auto) Lymph % (Auto) [place] % (Auto) Eos % (Auto) Baso % (Auto) Lymph # (Auto) [place] # (Auto) Eos # (Auto) Baso # (Auto) Abs Immat Gran (auto) Absolute Neuts (auto) Absolute Nucleated RBC Nucleated RBC % % Immature Plt Fraction Sodium Potassium Chloride Carbon Dioxide Anion Gap BUN Creatinine Estim Creat Clear Calc Estimated GFR Glucose POC Capillary Glucose 136 H 113 H 127 H Calcium Magnesium Total Bilirubin AST ALT Alkaline Phosphatase Total Protein Albumin Triglycerides 06/12/24 06/12/24 06/12/24 04:04 04:18 05:06 WBC 4.7 RBC 4.00 L Hgb 11.4 L Hct 35.6 L MCV 89.0 MCH 28.5 MCHC 32.0 RDW 14.9 H Plt Count 131 L MPV 12.0 H Immature Gran % (Auto) 0.4 Neut % (Auto) 55.0 Lymph % (Auto) 31.8 [place] % (Auto) 8.1 Eos % (Auto) 3.8 Baso % (Auto) 0.9 Lymph # (Auto) 1.49 [place] # (Auto) 0.4 Eos # (Auto) 0.2 Baso # (Auto) 0.0 Abs Immat Gran (auto) 0.02 Absolute Neuts (auto) 2.6 Absolute Nucleated RBC 0.000 Nucleated RBC % 0.0 % Immature Plt Fraction 9.1 Sodium 138 Potassium 3.6 Chloride 105 Carbon Dioxide 24 Anion Gap 9 BUN 9 Creatinine 1.35 H Estim Creat Clear Calc 62 Estimated GFR 53 L Glucose 137 H POC Capillary Glucose 154 H 147 H Calcium 8.6 Magnesium 1.5 L Total Bilirubin 0.4 AST 20 ALT 24 Alkaline Phosphatase 43 Total Protein 6.0 L Albumin 3.3 L Triglycerides 582 H 06/12/24 06/12/24 06:10 07:39 WBC RBC Hgb Hct MCV MCH MCHC RDW Plt Count MPV Immature Gran % (Auto) Neut % (Auto) Lymph % (Auto) [place] % (Auto) Eos % (Auto) Baso % (Auto) Lymph # (Auto) [place] # (Auto) Eos # (Auto) Baso # (Auto) Abs Immat Gran (auto) Absolute Neuts (auto) Absolute Nucleated RBC Nucleated RBC % % Immature Plt Fraction Sodium Potassium Chloride Carbon Dioxide Anion Gap BUN Creatinine Estim Creat Clear Calc Estimated GFR Glucose POC Capillary Glucose 117 H 118 H Calcium Magnesium Total Bilirubin AST ALT Alkaline Phosphatase Total Protein Albumin Triglycerides Quality VTE Prophylaxis VTE prophylaxis: pharmacologic ordered
[2024-06-12] MEDS: DEXTROSE 10% 1,000 ML 50 ML IV CONT (07:51)
[2024-06-12] MEDS: FENOFIBRATE NANOCRYSTALLIZED 145 MG TABLET PO (07:55)
[2024-06-12] MEDS: ENOXAPARIN 40 MG/0.4 ML SYRINGE SUB-Q (07:55)
[2024-06-12] MEDS: ROSUVASTATIN 20 MG TABLET 40 MG PO (07:55)
[2024-06-12] MEDS: OMEGA 3 POLYUNSAT FATTY ACIDS 1 GM CAP PO (07:56)
[2024-06-12] MEDS: LOSARTAN POTASSIUM 25 MG TABLET PO (07:56)
[2024-06-12] MEDS: metFORMIN HCL 500 MG TABLET 1000 MG PO ×2 (07:56→16:45)
[2024-06-12] MEDS: ASPIRIN 81 MG CHEWABLE TABLET PO (07:56)
[2024-06-12] MEDS: TORSEMIDE 20 MG TABLET BY MOUTH (07:56)
[2024-06-12] MEDS: GABAPENTIN 400 MG CAPSULE 800 MG PO ×3 (07:57→16:45)
[2024-06-12] MEDS: PANTOPRAZOLE 40 MG TABLET PO (07:57)
[2024-06-12] MEDS: NIACIN 100 MG TABLET PO (07:57)
[2024-06-12] MEDS: METOPROLOL SUCCINATE EXT REL 25 MG TABCR PO (07:57)
[2024-06-12] MEDS: MAGNESIUM SULFATE 3GM/D5W100ML 3 GM/100 ML BAG IVPB (08:00)
[2024-06-12] MEDS: FLUoxetine HCL 20 MG CAPSULE 40 MG PO (08:02)
[2024-06-12] MEDS: INSULIN GLARGINE (*BKC) 100 UNITS/ML 40 UNITS SUB-Q (08:03)
[2024-06-12] MEDS: BREXPIPRAZOLE 1 MG 1 EACH PO (08:05)
[2024-06-12] MEDS: POTASSIUM CHLORIDE 20 MEQ ER TABLET 40 MEQ PO (08:19)
[2024-06-12 08:36] LABS: Glucose Point of Care 109 mg/dl (65-105)
[2024-06-12 10:04] LABS: Glucose Point of Care 97 mg/dl (65-105)
[2024-06-12 11:04] LABS: Glucose Point of Care 107 mg/dl (65-105)
--- NOTE | 2024-06-12 11:27 | PCFNICU ---
ICU Rounding Note: Pt current nutrition is DBCC/Low Fat. Last recorded weight is 115.4 kg, up from 102.1 kg. Bowel Motility:+BM reported 06/11 Labs Reviewed: TG 582, Glu 137, Cr 1.35, Alb 3.3, Hct 35.6, Hgb 11.4 Meds Noted:Lantus,Glucophage, Protonix Skin: WNL Additional Notes: Patient remains on DBCC/Low Fat. Oral Intake has been 100% of meals. Agree with diet orders. No further nutritional interventions needed at this time. Following daily in ICU rounds.
[2024-06-12 16:43] LABS: Glucose Point of Care 222 mg/dl (65-105)
[2024-06-12 20:31] LABS: Glucose Point of Care 234 mg/dl (65-105)
[2024-06-13] VITALS: BP 127/76; PULSE 58; RESP 16; TEMP 36.5; O2SAT 97
[2024-06-13 02:40] VITALS: PULSE 62; RESP 10; O2SAT 99
[2024-06-13 04:38] LABS: Basophils Percent Auto 0.8 % (0.2-1.2); Eosinophils Absolute Auto 0.2 K/mm3 (0-0.3); Eosinophils Percent Auto 3.1 % (0-4.4); Hematocrit 36.2 % (42.0-52.0); Hemoglobin 11.7 g/dL (14.0-18.0); Immature Granulocyte Absolute 0.01 K/mm3 (0.00-0.031); Immature Granulocyte Percent A 0.2 % (0-0.5); Lymphocytes Absolute Auto 1.82 K/mm3 (0.9-3.2); Lymphocytes Percent Auto 35.1 % (18.3-44.2); Mean Corpuscular HGB Conc 32.3 g/dl (32-36); Mean Corpuscular Hemoglobin 28.3 pg (26-34); Mean Corpuscular Volume 87.4 fl (80-100); Mean Platelet Volume 12.1 fl (7.4-10.4); Monocytes Absolute Auto 0.5 K/mm3 (0.1-0.6); Monocytes Percent Auto 10.2 % (2.6-8.5); Neutrophils Absolute Auto 2.6 K/mm3 (1.3-6.7); Neutrophils Percent Auto 50.6 % (45.5-73.1); Platelet Count Result 115 k/mm3 (150-375); Red Blood Count 4.14 M/mm3 (4.6-6.20); Red Cell Distribution Width 14.7 % (11.5-14.5); White Blood Count 5.2 K/mm3 (4.5-10.0)
[2024-06-13 05:11] LABS: Alanine Aminotransferase 27 U/L (6-50); Albumin Level 3.5 g/dL (3.5-5.1); Alkaline Phosphatase 49 U/L (38-126); Anion Gap 6 mmol/L (4-12); Aspartate Amino Transferase 24 U/L (17-59); Bilirubin,Total 0.5 mg/dL (0.2-1.3); Blood Urea Nitrogen 15 mg/dL (9-20); Calcium 8.6 mg/dL (8.4-10.2); Carbon Dioxide 29 mmol/L (22-30); Chloride 101 mmol/L (98-107); Estimated CRCL calculation 53 ml/min; Estimated Glomerular Filt Rate 43; Glucose 245 mg/dL (65-110); Magnesium 1.7 mg/dL (1.6-2.3); Phosphorus 3.9 mg/dL (2.5-4.5); Potassium 4.4 mmol/L (3.4-5.0); Sodium 136 mmol/L (137-145); Triglycerides 423 mg/dL (<150)
[2024-06-13] MEDS: LEVOTHYROXINE SODIUM 75 MCG TABLET 225 MCG PO (05:22)
[2024-06-13] MEDS: CENTRAL LINE FLUSH 10 ML IV PUSH ×2 (05:24→14:28)
[2024-06-13 07:55] VITALS: BP 151/77; PULSE 55; RESP 18; TEMP 36.8; O2SAT 96
[2024-06-13 08:02] LABS: Glucose Point of Care 242 mg/dl (65-105)
[2024-06-13] MEDS: metFORMIN HCL 500 MG TABLET 1000 MG PO ×2 (08:22→17:04)
[2024-06-13] MEDS: GABAPENTIN 400 MG CAPSULE 800 MG PO ×3 (08:22→17:04)
[2024-06-13] MEDS: ROSUVASTATIN 20 MG TABLET 40 MG PO (08:22)
[2024-06-13] MEDS: INSULIN GLARGINE (*BKC) 100 UNITS/ML 40 UNITS SUB-Q (08:23)
[2024-06-13] MEDS: METOPROLOL SUCCINATE EXT REL 25 MG TABCR PO (08:23)
[2024-06-13] MEDS: FLUoxetine HCL 20 MG CAPSULE 40 MG PO (08:23)
[2024-06-13] MEDS: OMEGA 3 POLYUNSAT FATTY ACIDS 1 GM CAP PO (08:23)
[2024-06-13] MEDS: ASPIRIN 81 MG CHEWABLE TABLET PO (08:23)
[2024-06-13] MEDS: FENOFIBRATE NANOCRYSTALLIZED 145 MG TABLET PO (08:23)
[2024-06-13] MEDS: NIACIN 100 MG TABLET PO (08:23)
[2024-06-13] MEDS: PANTOPRAZOLE 40 MG TABLET PO (08:23)
[2024-06-13] MEDS: LOSARTAN POTASSIUM 25 MG TABLET PO (08:23)
[2024-06-13] MEDS: ENOXAPARIN 40 MG/0.4 ML SYRINGE SUB-Q (08:23)
[2024-06-13] MEDS: BREXPIPRAZOLE 1 MG 1 EACH PO (08:24)
[2024-06-13] MEDS: TORSEMIDE 20 MG TABLET BY MOUTH (08:27)
[2024-06-13 11:07] LABS: Glucose Point of Care 334 mg/dl (65-105)
[2024-06-13] MEDS: INSULIN ASPART (*BKC) 100 UNITS/ML 12 UNITS SUB-Q ×2 (11:46→17:05)
[2024-06-13 14:35] LABS: Glucose Point of Care 313 mg/dl (65-105)
[2024-06-13 16:59] LABS: Glucose Point of Care 283 mg/dl (65-105)
[2024-06-13] MEDS: INSULIN ASPART (*BKC) 100 UNITS/ML SUB-Q (17:05)
--- NOTE | 2024-06-13 17:38 | PM.DS ---
DS: Admitting Diagnosis Discharge Date 06/13/24 Admitting Diagnosis Nausea and vomiting. DS: Discharge Diagnosis Discharge Diagnosis (1) DKA (diabetic ketoacidosis): Code(s): E11.10 - Type 2 diabetes mellitus with ketoacidosis without coma Status: Acute DS: Summary Hospital Course Hospital Course: This is a very pleasant 64-year-old male with coronary artery disease with history of stents and 1 vessel bypass in 2009, insulin-dependent type 2 diabetes mellitus, diabetic peripheral neuropathy, hypertension, hyperlipidemia, hypothyroidism, obstructive sleep apnea, chronic obstructive pulmonary disease, gastroesophageal reflux disease, hyperthyroidism status post radioactive iodine ablation, postablative hypothyroidism, depression, anxiety, and posttraumatic stress disorder who presented to the emergency department via EMS from home for evaluation of nausea and vomiting. He was not feeling well when he got up, mainly with nausea, and he has had multiple episodes of nonbloody and nonbilious emesis since that time. He also endorses mild shortness of breath but that sounds to be more of a chronic issue as he admits that he is sedentary and spends most of his time in bed or in a chair. He is overwhelmed with his medications and insulin so he stopped taking them about a month ago. He does not feel that there is any benefits to taking his medications and with further questioning he does admit to longstanding depression and admits to having occasional thoughts of suicide cross his mind though he has no plan and he is not currently having these thoughts. At the age of 16 he attempted suicide by cutting his wrist and had no further attempts. He is disabled and lives alone. He is not but does have children although they are not in contact with him. He is not able to do the things that he used to like to do such as go to the gym, fish, and put together puzzles as his mobility is limited due to severe diabetic peripheral neuropathy. He denies fever, cold and flu symptoms, chest pain, pleuritic pain, cough, epigastric and abdominal pain, melena, hematochezia, hematemesis, and dysuria. In the ED: Vital signs on arrival include a temperature 97.4?, blood pressure 180/89, pulse 60, respiratory rate 18, SpO2 99% on room air. Labs are significant for a sodium of 131, carbon dioxide 18, anion gap 15, BUN 13, creatinine 1.10, glucose 489, TSH greater than 100. VBG showed a pH of 7.289, pCO2 55.9, HC03 26.2. Urinalysis was negative for ketones with 3+ glucose. Head CT and chest x-ray were without acute findings. He was started on IV fluids and an insulin drip for presumed mild diabetic ketoacidosis and he is being admitted in this setting. Patient noted he felt overwhelmed with his medications as there were not controlling his blood sugar so he stopped taking them aout a month ago and when started being sick he stated he was the one that called EMS. strongly denies any suicidal ideation or attempt. However, he was successfully managed for DKA and reverted to Subcut regimen. [facility] management were called to evaluated patient for suicide they evaluated and offered silasn a suicide contract which he signed. He however continues to day he is not suicidal. Patient was discharged on his hoem inuslin regimen along with Maunjaro and Metformin. High dose SSI with accucheks was prescribed which i discussed with him how to use it and he noted he has used about 3 years ago and was conversant with SSI. Patient will follow up with PCP in 3-5 days and follow up with Endocrinology as soon as possibel. Time Spent with Patient Time attestation: Total time spent providing and/or coordinating discharge services: DS: Data Data Completed and Pending Labs on day of discharge: Labs from last 24 hours 06/13/24 06/13/24 06/13/24 16:56 14:33 11:03 WBC RBC Hgb Hct MCV MCH MCHC RDW Plt Count MPV Immature Gran % (Auto) Neut % (Auto) Lymph % (Auto) [place] % (Auto) Eos % (Auto) Baso % (Auto) Lymph # (Auto) [place] # (Auto) Eos # (Auto) Baso # (Auto) Abs Immat Gran (auto) Absolute Neuts (auto) Absolute Nucleated RBC Nucleated RBC % Sodium Potassium Chloride Carbon Dioxide Anion Gap BUN Creatinine Estim Creat Clear Calc Estimated GFR Glucose POC Capillary Glucose 283 H 313 H 334 H Calcium Phosphorus Magnesium Total Bilirubin AST ALT Alkaline Phosphatase Total Protein Albumin Triglycerides 06/13/24 06/13/24 06/12/24 07:55 04:28 20:16 WBC 5.2 RBC 4.14 L Hgb 11.7 L Hct 36.2 L MCV 87.4 MCH 28.3 MCHC 32.3 RDW 14.7 H Plt Count 115 L MPV 12.1 H Immature Gran % (Auto) 0.2 Neut % (Auto) 50.6 Lymph % (Auto) 35.1 [place] % (Auto) 10.2 H Eos % (Auto) 3.1 Baso % (Auto) 0.8 Lymph # (Auto) 1.82 [place] # (Auto) 0.5 Eos # (Auto) 0.2 Baso # (Auto) 0.0 Abs Immat Gran (auto) 0.01 Absolute Neuts (auto) 2.6 Absolute Nucleated RBC 0.000 Nucleated RBC % 0.0 Sodium 136 L Potassium 4.4 Chloride 101 Carbon Dioxide 29 Anion Gap 6 BUN 15 D Creatinine 1.61 H Estim Creat Clear Calc 53 Estimated GFR 43 L Glucose 245 H POC Capillary Glucose 242 H 234 H Calcium 8.6 Phosphorus 3.9 Magnesium 1.7 Total Bilirubin 0.5 AST 24 ALT 27 Alkaline Phosphatase 49 Total Protein 6.0 L Albumin 3.5 Triglycerides 423 H Discharge Plan Discharge Attending physician on discharge: Estrellita Oh Consulting providers: Waqar Dueñas Discharging Clinician: Estrellita Oh Anticipated Discharge Date/Time: 06/13/24 17:07 Patient Disposition: Home Activity: as tolerated Diet: diabetic Patient Instructions: Antibiotic Form, Low Fat Diet (DC), Heart Healthy Diet (DC), Basic Carbohydrate Counting (DC) Patient Language: [place] Stand Alone Forms: General Discharge Information Follow-up/Referrals: Michelle Drake APRN [Primary Care Provider] - (F/u with PCP in 3-5 days ) Discharge Medications: New (DME) Autopen 2 to 42 units Insulin Pen See Rx Instructions .Route Qty: 1 0RF Rx Instructions: glucose < 70 mg/dlFollow hypoglycemia order glucose 70-130 mg/dlNo additional insulin glucose 131-180 mg/dl 2 units sub-Q glucose 181-240 mg/dl 4 units sub-Q glucose 241-300 mg/dl 6 units sub-Q glucose 301-350 mg/dl 8 units sub-Q glucose 351 to 400 mg/dl 10 units above 400 call PCP Continued fluoxetine 40 mg capsule 40 mg PO DAILY Rexulti 1 mg tablet 1 mg PO DAILY primidone 250 mg tablet 250 mg PO DAILY Qty: 90 3RF losartan 25 mg tablet 25 mg PO DAILY Qty: 90 3RF metoprolol succinate 25 mg tablet extended release 24 hr 12.5 mg PO DAILY Qty: 90 3RF Mounjaro 10 mg/0.5 mL pen injector See Rx Instructions .ROUTE .COMPLEX Qty: 6 1RF Dose Instruction: INJECT 10 MG SUBCUTANEOUSLY ONCE A WEEK Rx Instructions: INJECT 10 MG SUBCUTANEOUSLY ONCE A WEEK insulin lispro [Humalog KwikPen Insulin] 100 unit/mL insulin pen 15 unit subcut TIDWMEAL Qty: 5 5RF Austedo 9 mg tablet 9 mg PO BID nitroglycerin 0.4 mg tablet, sublingual 0.4 mg sublingual Q5M PRN (Reason: Chest Pain) Qty: 100 0RF Rx Instructions: do not exceed 3 doses per episode omega 7-zuv-suo-fish oil [Fish Oil] 1,000 mg (120 mg-180 mg) capsule 2 cap PO BID ezetimibe 10 mg tablet 10 mg PO DAILY aspirin 81 mg tablet,chewable 81 mg PO DAILY Qty: 90 3RF metformin 1,000 mg tablet See Rx Instructions .ROUTE .COMPLEX Qty: 180 0RF Dose Instruction: Take 1 tablet by mouth twice daily Rx Instructions: Take 1 tablet by mouth twice daily levothyroxine 25 mcg tablet See Rx Instructions .ROUTE .COMPLEX Qty: 90 0RF Dose Instruction: Take 1 tablet by mouth once daily Rx Instructions: Take 1 tablet by mouth once daily omeprazole 40 mg capsule,delayed release(DR/EC) See Rx Instructions .ROUTE .COMPLEX Qty: 90 0RF Dose Instruction: Take 1 capsule by mouth once daily Rx Instructions: Take 1 capsule by mouth once daily gabapentin 800 mg tablet 800 mg PO TID Qty: 270 0RF (DME) pen needle, diabetic 31 gauge x 5/16 needle See Rx Instructions .ROUTE .COMPLEX Qty: 100 3RF Dose Instruction: USE TWICE DAILY WITH LEVIMIR Rx Instructions: USE TWICE DAILY WITH LEVIMIR insulin glargine [Lantus Solostar U-100 Insulin] 100 unit/mL (3 mL) insulin pen 25 unit subcut BID Qty: 15 3RF rosuvastatin 40 mg tablet See Rx Instructions .ROUTE .COMPLEX Qty: 90 0RF Dose Instruction: Take 1 tablet by mouth once daily Rx Instructions: Take 1 tablet by mouth once daily torsemide 20 mg tablet See Rx Instructions .ROUTE .COMPLEX Qty: 90 0RF Dose Instruction: Take 1 tablet by mouth once daily Rx Instructions: Take 1 tablet by mouth once daily levothyroxine 200 mcg tablet See Rx Instructions .ROUTE .COMPLEX Qty: 90 0RF Dose Instruction: TAKE 1 TABLET BY MOUTH ONCE DAILY. TAKE WITH 25MCG TO EQUAL 225MCG DAILY Rx Instructions: TAKE 1 TABLET BY MOUTH ONCE DAILY. TAKE WITH 25MCG TO EQUAL 225MCG DAILY Date of admission: 06/08/24 12:44 Primary Care Provider: Michelle Drake Admitting Provider: Saqib Treviño Attending physician on admission: Estrellita Oh Condition: Stable
--- NOTE | 2024-06-16 14:40 | PCCDE ---
06/16/24 14:40 pm Courtesy follow up message placed. ALEKSANDR
== END 2024-06-13 19:10 | disposition home or self-care (01) | DRG 638 ==
LOC: ANHED 14:33 → ANHICU 15:51
PROVIDERS: Internal Medicine; Admitting Provider General Practice; Emergency Provider Emergency Medicine; PCP Nurse Practitioner Adult Health; Visit Provider Internal Medicine
DX: E11.10 Type 2 diabetes mellitus with ketoacidosis without coma (principal); R45.851 Suicidal ideations; I10 Essential (primary) hypertension; I25.10 Atherosclerotic heart disease of native coronary artery without angina pectoris; J44.9 Chronic obstructive pulmonary disease, unspecified; E11.40 Type 2 diabetes mellitus with diabetic neuropathy, unspecified; E78.5 Hyperlipidemia, unspecified; E78.1 Pure hyperglyceridemia; E89.0 Postprocedural hypothyroidism; K21.9 Gastro-esophageal reflux disease without esophagitis; R33.9 Retention of urine, unspecified; G47.33 Obstructive sleep apnea (adult) (pediatric); F32.A Depression, unspecified; F10.21 Alcohol dependence, in remission; F41.9 Anxiety disorder, unspecified; F43.10 Post-traumatic stress disorder, unspecified; Z95.5 Presence of coronary angioplasty implant and graft; Z79.82 Long term (current) use of aspirin; Z79.02 Long term (current) use of antithrombotics/antiplatelets; Z95.1 Presence of aortocoronary bypass graft; Z87.891 Personal history of nicotine dependence; Z79.4 Long term (current) use of insulin; Z91.199 Patient's noncompliance with other medical treatment and regimen due to unspecified reason
CPT/HCPCS: 36415; 36569; 70450; 71046; 80048; 80053; 80061; 81001; 82803; 82948; 83036; 83690; 83735; 84100; 84439; 84443; 84478; 84484; 85025; 85055; 85610; 85730; 87641; 93005; 94002; 96361; 96374; 96375; 96376; 99285; A9270; C1751; G0378; J1650; J1815; J2003; J2405; J3475; J3480; J7030

== ENCOUNTER 2024-08-22 14:38 | Outpatient (CLI) | payer MEDICARE, MEDICAID, SELFPAY ==
[2024-08-22 19:01] LABS: Hematocrit 41.6 % (42.0-52.0); Hemoglobin 13.8 g/dL (14.0-18.0); Mean Corpuscular HGB Conc 33.2 g/dl (32-36); Mean Corpuscular Hemoglobin 28.2 pg (26-34); Mean Corpuscular Volume 84.9 fl (80-100); Mean Platelet Volume 10.2 fl (7.4-10.4); Platelet Count Result 259 k/mm3 (150-375); Red Cell Distribution Width 13.8 % (11.5-14.5); White Blood Count 10.6 K/mm3 (4.5-10.0)
[2024-08-22 20:48] LABS: Alanine Aminotransferase 86 U/L (6-50); Albumin Level 4.8 g/dL (3.5-5.1); Alkaline Phosphatase 81 U/L (38-126); Anion Gap 15 mmol/L (4-12); Aspartate Amino Transferase 67 U/L (17-59); Bilirubin,Total 0.6 mg/dL (0.2-1.3); Blood Urea Nitrogen 28 mg/dL (9-20); Calcium 10.4 mg/dL (8.4-10.2); Carbon Dioxide 22 mmol/L (22-30); Chloride 100 mmol/L (98-107); Cholesterol 92 mg/dL (0-200); Estimated Glomerular Filt Rate 52; Glucose 209 mg/dL (65-110); HDL Direct 23 mg/dL; Potassium 4.6 mmol/L (3.4-5.0); Sodium 137 mmol/L (137-145); Total Protein 8.4 g/dL (6.3-8.2); Triglycerides 189 mg/dL (<150)
[2024-08-22 20:59] LABS: LDL Cholesterol Direct 31 mg/dL
[2024-08-22 21:08] LABS: Hemoglobin A1C 9.1 % (<5.7)
[2024-08-22 21:17] LABS: Thyroid Stimulating Hormone 0.988 uIU/mL (0.465-4.680)
[2024-08-25 15:27] LABS: Vitamin D 1,25 (OH)2 Total 22 pg/mL (18-72); Vitamin D2 1,25 (OH)2 <8 pg/mL; Vitamin D3 1,25 (OH)2 22 pg/mL
== END 2024-08-22 14:39 | disposition home or self-care (01) ==
PROVIDERS: PCP Nurse Practitioner Adult Health; Visit Provider Nurse Practitioner Adult Health
DX: E78.5 Hyperlipidemia, unspecified (principal); E03.9 Hypothyroidism, unspecified; D64.9 Anemia, unspecified; E34.9 Endocrine disorder, unspecified; E55.9 Vitamin D deficiency, unspecified; E11.40 Type 2 diabetes mellitus with diabetic neuropathy, unspecified; G63 Polyneuropathy in diseases classified elsewhere; E11.65 Type 2 diabetes mellitus with hyperglycemia; Z79.4 Long term (current) use of insulin
CPT/HCPCS: 36415; 80053; 80061; 82306; 82607; 82652; 83036; 84443; 85027

== ENCOUNTER 2024-11-22 12:15 | Outpatient (CLI) | payer MEDICARE, MEDICAID, SELFPAY ==
--- OUTSIDE RECORDS SUMMARY | 2024-11-22 12:36 | XMS_ITS | Data Portability ---
Author Organization [facility] Villarreal Address [address] [place] [address] Care Team Providers Care Recording Engineer Name Role Phone UZIEL LANDIN Primary Care Provider Assessment No assessment recorded. Plan of Treatment Reminders Order Date Submit Date Provider Last Modified By Organization Details Last Modified Time Details Appointments None recorded. Lab HbA1c (hemoglobi n A1c), blood 2017 018 JAIR BARNETT, [facility] [place], [facility] [address], [place], [address], 8 09:22:41 CMP, serum or plasma 2017 018 JAIR BARNETT, [facility], [facility] [address], [place], [address], 8 09:22:39 CBC 2017 018 JA[facility]NET[facility], [facility], [facility] [address], [place], [address], 8 09:22:40 TSH, ultra-sens itive, serum 2017 018 JAIR BARNETT, [facility], [facility] [address], [place], [address], 8 09:22:41 lipid panel, serum 2017 018 Maurilio [facility], [address], [place], [address], 8 09:22:40 HbA1c (hemoglobi n A1c), blood 2017 018 JAIR [facility], [address], [address], [place], [address], 8 09:16:14 microalbum in/creatin ine, mass ratio, urine 2017 018 JAIR [facility], [address], [address], [place], [address], 8 09:16:13 TSH, ultra-sens itive, serum 2017 018 JAIR [facility], [facility] [address], [address], [place], [address], 8 09:16:14 CBC 2017 018 JAIR [facility], [facility] [address], [address], [place], [address], 8 09:16:12 CMP, serum or plasma 2017 018 JAIR [facility], [facility] se[facility] [address], [address], [place], [address], 8 09:16:11 lipid panel, serum 2017 018 JAIR [facility], [facility] [address], [address], [place], [address], 8 09:16:13 hemoglobin , qualitativ e, stool by immunologi c method 2016 017 edytarick [facility], [facility], [address], [place], [address], 8 14:33:45 Referral None recorded. Procedures None recorded. Surgeries None recorded. Imaging None recorded. Medication Orders fenofibrat e 160 mg tablet 2017 018 INTERFACE [facility] [address] [place], [address], 8 13:17:21 Lantus U-100 Insulin 100 unit/mL subcutaneo us solution 2017 018 nsuthan Not available 8 12:55:57 Novolog U-100 Insulin aspart 100 unit/mL subcutaneo us solution 2017 018 INTERFACE Not available 8 08:59:54 lisinopril 20 mg tablet 2016 017 INTERFACE [facility] [address] [place], [address], 7 09:49:50 amoxicilli n 500 mg tablet 2016 [facility] [address] [address] [place], [address], 7 13:54:30 Patient TargetsNo targets recorded. Patient Instructions Encounter Date Encounter Id Patient Instructions Last Modified By Organization Details Last Modified Time 08/19/2016 [id number] Take meds as prescribed Healthy ADA diet/ exercise f/u in 3 month nsuthan Not available 08/19/2016 09:23:02 01/06/2017 [id number] eating healthy foods: care instructions nsuthan Not available 01/06/2017 13:53:19 Take meds as prescribed Healthy ADA diet/ exercise f/u in 1 month nsuthan Not available 01/06/2017 13:52:47 02/05/2017 [id number] Take meds as prescribed Healthy ADA diet/ exercise f/u in 3 month nsuthan Not available 02/05/2017 09:49:35 05/20/[id number] Take meds as prescribed Healthy ADA diet/ exercise f/u in 3 month nsuthan Not available 05/20/2017 09:08:20 09/27/2017 [id number] diabetes healthy eating nsuthan Not available 09/27/2017 13:26:17 f/u in 2month nsuthan Not available 13:20:53 pt missed work since last Wed due to elevated blood sugars , requesting work note for missing days - pt is in fear of loosing job without doctor's note per pt . nsuthan Not available 09/27/2017 13:22:25 Reason for Referral None Reported. Results Created Date Observation Date Name Description Value Unit Range Abnormal Flag Note LastModifiedBy Organization Detail LastModifiedTime 01/30/20 17 01/30/2017 CMP, serum or plasm a glucose, serum 145 mg/dL 65-99 above high normal Not Available [facility] ([facility]) [address] [place], [address], 01/30/2017 07:11:26 01/30/20 17 01/30/2017 CMP, serum or plasm a BUN 14 mg/dL 6-24 Not Available [facility] ([facility]) [address] [place], [address], 01/30/2017 07:11:26 01/30/20 17 01/30/2017 CMP, serum or plasm a creatinine, serum 1.12 mg/dL 0.76-1 .27 Not Available [facility] ([facility]) [address] [place], [address], 01/30/2017 07:11:26 01/30/20 17 01/30/2017 CMP, serum or plasm a eGFR if nonafricn AM 73 mL/mi n/1.7 3 >59 Not Available [facility] ([facility]) [address] [place], [address], 01/30/2017 07:11:26 01/30/20 17 01/30/2017 CMP, serum or plasm a eGFR if africn AM 84 mL/mi n/1.7 3 >59 Not Available [facility] ([facility]) [address] [place], [address], 01/30/2017 07:11:26 01/30/20 17 01/30/2017 CMP, serum or plasm a BUN/creatini ne ratio 13 9-20 Not Available [facility] ([facility]) [address] [place], [address], 01/30/2017 07:11:26 01/30/20 17 01/30/2017 CMP, serum or plasm a sodium, serum 137 mmol/ L 134-14 4 Not Available [facility] ([facility]) [address] [place], [address], 01/30/2017 07:11:26 01/30/20 17 01/30/2017 CMP, serum or plasm a potassium, serum 4.8 mmol/ L 3.5-5. 2 Not Available [facility] ([facility]) [address] [place], [address], 01/30/2017 07:11:26 01/30/20 17 01/30/2017 CMP, serum or plasm a chloride, serum 97 mmol/ L 96-106 Not Available [facility] ([facility]) [address] [facility], [place], [address], 01/30/2017 07:11:26 01/30/20 17 01/30/2017 CMP, serum or plasm a carbon dioxide, total 22 mmol/ L 18-29 Not Available [facility] ([facility]) [address] [place], [address], 01/30/2017 07:11:26 01/30/20 17 01/30/2017 CMP, serum or plasm a calcium, serum 9.5 mg/dL 8.7-10 .2 Not Available [facility] ([facility]) [address] [place], [address], 01/30/2017 07:11:26 01/30/20 17 01/30/2017 CMP, serum or plasm a protein, total, serum 7.3 g/dL 6.0-8. 5 Not Available [facility] ([facility]) [address] [facility] [place], [address], 01/30/2017 07:11:26 01/30/20 17 01/30/2017 CMP, serum or plasm a albumin, serum 4.9 g/dL 3.5-5. 5 Not Available [facility] ([facility] [address] [facility] [place], [address], 01/30/2017 07:11:26 01/30/20 17 01/30/2017 CMP, serum or plasm a globulin, total 2.4 g/dL 1.5-4. 5 Not Available [facility] ([facility] [address] [facility] [place], [address], 01/30/2017 07:11:26 01/30/20 17 01/30/2017 CMP, serum or plasm a A/G ratio 2.0 1.2-2. 2 Not Available [facility] ([facility]) [address] [facility] [place], [address], 01/30/2017 07:11:26 01/30/20 17 01/30/2017 CMP, serum or plasm a bilirubin, total 1.0 mg/dL 0.0-1. 2 Not Available [facility] ([facility]) [address] [facility] [place], [address], 01/30/2017 07:11:26 01/30/20 17 01/30/2017 CMP, serum or plasm a alkaline phosphatase, S 87 IU/L 39-117 Not Available [facility] ([facility]) [address] [facility] [place], [address], 01/30/2017 07:11:26 01/30/20 17 01/30/2017 CMP, serum or plasm a AST (SGOT) 23 IU/L 0-40 Not Available [facility] ([facility]) [address] [facility] [place], [address], 01/30/2017 07:11:26 01/30/20 17 01/30/2017 CMP, serum or plasm a ALT (SGPT) 23 IU/L 0-44 Not Available [facility] ([facility]) [address] [facility], [place], [address], 01/30/2017 07:11:26 01/30/20 17 01/30/2017 lipid panel , serum cholesterol, total 154 mg/dL 100-19 9 Not Available [facility] ([facility]) [address] [facility], [place], [address], 01/30/2017 07:11:26 01/30/20 17 01/30/2017 lipid panel , serum triglyceride s 122 mg/dL 0-149 Not Available [facility] ([facility]) [address] [facility], [place], [address], 01/30/2017 07:11:26 01/30/20 17 01/30/2017 lipid panel , serum HDL cholesterol 35 mg/dL >39 below low normal Not Available [facility] ([facility]) [address] [facility], [place], [address], 01/30/2017 07:11:26 01/30/20 17 01/30/2017 lipid panel , serum VLDL cholesterol sebastián 24 mg/dL 5-40 Not Available [facility] ([facility]) [address] [facility], [place], [address], 01/30/2017 07:11:26 01/30/20 17 01/30/2017 lipid panel , serum LDL cholesterol calc 95 mg/dL 0-99 Not Available [facility] ([facility]) [address] [facility], [place], [address], 01/30/2017 07:11:26 01/30/20 17 01/30/2017 lipid panel , serum comment: BILINGUAL RECEPTIONIST Not Available [facility] ([facility]) [address] [facility], [place], [address], 01/30/2017 07:11:26 01/30/20 17 01/30/2017 HbA1c (hemo globi n A1c), blood hemoglobin A1C 9.2 % 4.8-5. 6 above high normal Pre-d iabet es: 5.7 - 6.4 Diabe catherine: >6.4 Glyce can contr ol for adult s with diabe catherine: <7.0 Not Available [facility] ([facility]) [address] [place], [address], 01/30/2017 07:11:27 01/30/20 17 01/30/2017 TSH, ultra -sens itive , serum TSH 1.740 uIU/m L 0.450- 4.500 Not Available [facility] ([facility]) [address] [place], [address], 01/30/2017 07:11:27 05/21/19 18 05/21/2017 CMP, serum or plasm a glucose, serum 227 mg/dL 65-99 above high normal Not Available [facility] ([facility]) [address] [place], [address], 05/21/2017 09:16:11 05/21/19 18 05/21/2017 CMP, serum or plasm a BUN 22 mg/dL 6-24 Not Available [facility] ([facility]) [address] [place], [address], 05/21/2017 09:16:11 05/21/19 18 05/21/2017 CMP, serum or plasm a creatinine, serum 1.31 mg/dL 0.76-1 .27 above high normal Not Available [facility] ([facility]) [address] [place], [address], 05/21/2017 09:16:11 05/21/19 18 05/21/2017 CMP, serum or plasm a eGFR if nonafricn AM 60 mL/mi n/1.7 3 >59 Not Available [facility] ([facility]) [address] [place], [address], 05/21/2017 09:16:11 05/21/19 18 05/21/2017 CMP, serum or plasm a eGFR if africn AM 69 mL/mi n/1.7 3 >59 Not Available [facility] ([facility]) [address] [facility] [place], [address], 05/21/2017 09:16:11 05/21/19 18 05/21/2017 CMP, serum or plasm a BUN/creatini ne ratio 17 9-20 Not Available [facility] ([facility]) [address] [place], [address], 05/21/2017 09:16:11 05/21/19 18 05/21/2017 CMP, serum or plasm a sodium, serum 134 mmol/ L 134-14 4 Not Available [facility] ([facility]) [address] [place], [address], 05/21/2017 09:16:11 05/21/19 18 05/21/2017 CMP, serum or plasm a potassium, serum 4.7 mmol/ L 3.5-5. 2 Not Available [facility] ([facility]) [address] [place], [address], 05/21/2017 09:16:11 05/21/19 18 05/21/2017 CMP, serum or plasm a chloride, serum 93 mmol/ L 96-106 below low normal Not Available [facility] ([facility]) [address] [place], [address], 05/21/2017 09:16:11 05/21/19 18 05/21/2017 CMP, serum or plasm a carbon dioxide, total 22 mmol/ L 18-29 Not Available [facility] ([facility]) [address] [place], [address], 05/21/2017 09:16:11 05/21/19 18 05/21/2017 CMP, serum or plasm a calcium, serum 9.4 mg/dL 8.7-10 .2 Not Available [facility] ([facility]) [address] [place], [address], 05/21/2017 09:16:11 05/21/19 18 05/21/2017 CMP, serum or plasm a protein, total, serum 7.6 g/dL 6.0-8. 5 Not Available [facility] ([facility] [address] [facility] [place], [address], 05/21/2017 09:16:11 05/21/19 18 05/21/2017 CMP, serum or plasm a albumin, serum 4.5 g/dL 3.5-5. 5 Not Available [facility] ([facility]) [address] [facility] [place], [address], 05/21/2017 09:16:11 05/21/19 18 05/21/2017 CMP, serum or plasm a globulin, total 3.1 g/dL 1.5-4. 5 Not Available [facility] ([facility]) [address] [facility] [place], [address], 05/21/2017 09:16:11 05/21/19 18 05/21/2017 CMP, serum or plasm a A/G ratio 1.5 1.2-2. 2 Not Available [facility] ([facility]) [address] [facility] [place], [address], 05/21/2017 09:16:11 05/21/19 18 05/21/2017 CMP, serum or plasm a bilirubin, total 0.4 mg/dL 0.0-1. 2 Not Available [facility] ([facility]) [address] [facility] [place], [address], 05/21/2017 09:16:11 05/21/19 18 05/21/2017 CMP, serum or plasm a alkaline phosphatase, S 83 IU/L 39-117 Not Available [facility] ([facility]) [address] [facility] [place], [address], 05/21/2017 09:16:11 05/21/19 18 05/21/2017 CMP, serum or plasm a AST (SGOT) 24 IU/L 0-40 Not Available [facility] ([facility]) [address] [place], [address], 05/21/2017 09:16:11 05/21/19 18 05/21/2017 CMP, serum or plasm a ALT (SGPT) 42 IU/L 0-44 Not Available [facility] ([facility]) [address] [place], [address], 05/21/2017 09:16:11 05/21/19 18 05/21/2017 CBC WBC 8.7 x10e3 /uL 3.4-10 .8 Not Available [facility] ([facility]) [address] [place], [address], 05/21/2017 09:16:12 05/21/19 18 05/21/2017 CBC RBC 5.36 x10e6 /uL 4.14-5 .80 Not Available [facility] ([facility]) [address] [facility] [place], [address], 05/21/2017 09:16:12 05/21/19 18 05/21/2017 CBC hemoglobin 15.5 g/dL 13.0-1 7.7 Not Available [facility] ([facility]) [address] [facility] [place], [address], 05/21/2017 09:16:12 05/21/19 18 05/21/2017 CBC hematocrit 46.9 % 37.5-5 1.0 Not Available [facility] ([facility]) [address] [facility] [place], [address], 05/21/2017 09:16:12 05/21/19 18 05/21/2017 CBC MCV 88 fL 79-97 Not Available [facility] ([facility]) [address] [facility] [place], [address], 05/21/2017 09:16:12 05/21/19 18 05/21/2017 CBC MCH 28.9 pg 26.6-3 3.0 Not Available [facility] ([facility]) [address] [facility] [place], [address], 05/21/2017 09:16:12 05/21/19 18 05/21/2017 CBC MCHC 33.0 g/dL 31.5-3 5.7 Not Available [facility] ([facility]) [address] [facility] [place], [address], 05/21/2017 09:16:12 05/21/19 18 05/21/2017 CBC RDW 13.6 % 12.3-1 5.4 Not Available [facility] ([facility]) [address] [facility] [place], [address], 05/21/2017 09:16:12 05/21/19 18 05/21/2017 CBC platelets 237 x10e3 /uL 150-37 9 Not Available [facility] ([facility]) [address] [facility] [place], [address], 05/21/2017 09:16:12 05/21/19 18 05/21/2017 CBC NRBC BILINGUAL RECEPTIONIST Not Available [facility] ([facility]) [address] [facility] [place], [address], 05/21/2017 09:16:12 05/21/19 18 05/21/2017 lipid panel , serum cholesterol, total 250 mg/dL 100-19 9 above high normal Not Available [facility] ([facility]) [address] [facility] [place], [address], 05/21/2017 09:16:12 05/21/19 18 05/21/2017 lipid panel , serum triglyceride s 572 mg/dL 0-149 alert high Not Available [facility] ([facility]) [address] [facility] [place], [address], 05/21/2017 09:16:12 05/21/19 18 05/21/2017 lipid panel , serum HDL cholesterol 34 mg/dL >39 below low normal Not Available [facility] ([facility]) [address] [place], [address], 05/21/2017 09:16:12 05/21/19 18 05/21/2017 lipid panel , serum VLDL cholesterol sebastián Commen t mg/dL 5-40 The calcu latio n for the VLDL nate stero l is not valid when trigl yceri de level is >400 mg/dL . Not Available [facility] ([facility]) [address] [facility], [place], [address], 05/21/2017 09:16:12 05/21/19 18 05/21/2017 lipid panel , serum LDL cholesterol calc Commen t mg/dL 0-99 Trigl yceri de resul t indic ated is too high for an accur ate LDL nate stero l estim ation . Not Available [facility] ([facility]) [address] [facility], [place], [address], 05/21/2017 09:16:12 05/21/19 18 05/21/2017 lipid panel , serum comment: BILINGUAL RECEPTIONIST Not Available [facility] ([facility]) [address] [facility], [place], [address], 05/21/2017 09:16:12 05/21/19 18 05/21/2017 micro album in/cr eatin ine, mass ratio , urine creatinine, urine 109.2 mg/dL not estab. Not Available [facility] ([facility]) [address] [place], [address], 05/21/2017 09:16:13 05/21/19 18 05/21/2017 micro album in/cr eatin ine, mass ratio , urine albumin, urine 7.3 ug/mL not estab. Not Available [facility] ([facility]) [address] [place], [address], 05/21/2017 09:16:13 05/21/19 18 05/21/2017 micro album in/cr eatin ine, mass ratio , urine alb/creat ratio 6.7 mg/g_ creat 0.0-30 .0 Not Available [facility] ([facility]) [address] [place], [address], 05/21/2017 09:16:13 05/21/19 18 05/21/2017 HbA1c (hemo globi n A1c), blood hemoglobin A1C 8.7 % 4.8-5. 6 above high normal Pre-d iabet es: 5.7 - 6.4 Diabe catherine: >6.4 Glyce can contr ol for adult s with diabe catherine: <7.0 Not Available [facility] ([facility]) [address] [place], [address], 05/21/2017 09:16:14 05/21/19 18 05/21/2017 TSH, ultra -sens itive , serum TSH 23.160 uIU/m L 0.450- 4.500 above high normal Not Available [facility] ([facility]) [address] [place], [address], 05/21/2017 09:16:14 09/28/19 18 09/28/2017 CMP, serum or plasm a glucose 203 mg/dL 65-99 above high normal Not Available [facility] ([facility]) [address] [place], [address], 09/28/2017 09:22:39 09/28/19 18 09/28/2017 CMP, serum or plasm a BUN 22 mg/dL 6-24 Not Available [facility] ([facility]) [address] [place], [address], 09/28/2017 09:22:39 09/28/19 18 09/28/2017 CMP, serum or plasm a creatinine 0.92 mg/dL 0.76-1 .27 Not Available [facility] ([facility]) [address] [place], [address], 09/28/2017 09:22:39 09/28/19 18 09/28/2017 CMP, serum or plasm a eGFR if nonafricn AM 92 mL/mi n/1.7 3 >59 Not Available [facility] ([facility]) [address] [facility] [place], [address], 09/28/2017 09:22:39 09/28/19 18 09/28/2017 CMP, serum or plasm a eGFR if africn AM 106 mL/mi n/1.7 3 >59 Not Available [facility] ([facility]) [address] [facility] [place], [address], 09/28/2017 09:22:39 09/28/19 18 09/28/2017 CMP, serum or plasm a BUN/creatini ne ratio 24 9-20 above high normal Not Available [facility] ([facility]) [address] [facility] [place], [address], 09/28/2017 09:22:39 09/28/19 18 09/28/2017 CMP, serum or plasm a sodium 137 mmol/ L 134-14 4 Not Available [facility] ([facility]) [address] [facility] [place], [address], 09/28/2017 09:22:39 09/28/19 18 09/28/2017 CMP, serum or plasm a potassium 4.7 mmol/ L 3.5-5. 2 Not Available [facility] ([facility]) [address] [facility] [place], [address], 09/28/2017 09:22:39 09/28/19 18 09/28/2017 CMP, serum or plasm a chloride 99 mmol/ L 96-106 Not Available [facility] ([facility]) [address] [facility] [place], [address], 09/28/2017 09:22:39 09/28/19 18 09/28/2017 CMP, serum or plasm a carbon dioxide, total 23 mmol/ L 20-29 Not Available [facility] ([facility]) [address] [facility] [place], [address], 09/28/2017 09:22:39 09/28/19 18 09/28/2017 CMP, serum or plasm a calcium 10.0 mg/dL 8.7-10 .2 Not Available [facility] ([facility]) [address] [facility] [place], [address], 09/28/2017 09:22:39 09/28/19 18 09/28/2017 CMP, serum or plasm a protein, total 7.5 g/dL 6.0-8. 5 Not Available [facility] ([facility]) [address] [facility] [place], [address], 09/28/2017 09:22:39 09/28/19 18 09/28/2017 CMP, serum or plasm a albumin 5.1 g/dL 3.5-5. 5 Not Available [facility] ([facility]) [address] [place], [address], 09/28/2017 09:22:39 09/28/19 18 09/28/2017 CMP, serum or plasm a globulin, total 2.4 g/dL 1.5-4. 5 Not Available [facility] ([facility]) [address] [facility] [place], [address], 09/28/2017 09:22:39 09/28/19 18 09/28/2017 CMP, serum or plasm a A/G ratio 2.1 1.2-2. 2 Not Available [facility] ([facility]) [address] [place], [address], 09/28/2017 09:22:39 09/28/19 18 09/28/2017 CMP, serum or plasm a bilirubin, total 0.2 mg/dL 0.0-1. 2 Not Available [facility] ([facility]) [address] [facility] [place], [address], 09/28/2017 09:22:39 09/28/19 18 09/28/2017 CMP, serum or plasm a alkaline phosphatase 75 IU/L 39-117 Not Available [facility] ([facility] [address] [facility] [place], [address], 09/28/2017 09:22:39 09/28/19 18 09/28/2017 CMP, serum or plasm a AST (SGOT) 18 IU/L 0-40 Not Available [facility] ([facility] [address] [facility] [place], [address], 09/28/2017 09:22:39 09/28/19 18 09/28/2017 CMP, serum or plasm a ALT (SGPT) 29 IU/L 0-44 Not Available [facility] ([facility]) [address] [facility] [place], [address], 09/28/2017 09:22:39 09/28/19 18 09/28/2017 CBC WBC 9.2 x10e3 /uL 3.4-10 .8 Not Available [facility] ([facility]) [address] [facility] [place], [address], 09/28/2017 09:22:40 09/28/19 18 09/28/2017 CBC RBC 5.35 x10e6 /uL 4.14-5 .80 Not Available [facility] ([facility]) [address] [facility] [place], [address], 09/28/2017 09:22:40 09/28/19 18 09/28/2017 CBC hemoglobin 15.6 g/dL 13.0-1 7.7 Not Available [facility] ([facility]) [address] [facility] [place], [address], 09/28/2017 09:22:40 09/28/19 18 09/28/2017 CBC hematocrit 45.7 % 37.5-5 1.0 Not Available [facility] ([facility]) [address] [facility] [place], [address], 09/28/2017 09:22:40 09/28/19 18 09/28/2017 CBC MCV 85 fL 79-97 Not Available [facility] ([facility]) [address] [place], [address], 09/28/2017 09:22:40 09/28/19 18 09/28/2017 CBC MCH 29.2 pg 26.6-3 3.0 Not Available [facility] ([facility]) [address] [place], [address], 09/28/2017 09:22:40 09/28/19 18 09/28/2017 CBC MCHC 34.1 g/dL 31.5-3 5.7 Not Available [facility] ([facility]) [address] [place], [address], 09/28/2017 09:22:40 09/28/19 18 09/28/2017 CBC RDW 13.9 % 12.3-1 5.4 Not Available [facility] ([facility]) [address] [facility] [place], [address], 09/28/2017 09:22:40 09/28/19 18 09/28/2017 CBC platelets 202 x10e3 /uL 150-37 9 Not Available [facility] ([facility]) [address] [facility] [place], [address], 09/28/2017 09:22:40 09/28/19 18 09/28/2017 CBC NRBC BILINGUAL RECEPTIONIST Not Available [facility] ([facility]) [address] [facility] [place], [address], 09/28/2017 09:22:40 09/28/19 18 09/28/2017 lipid panel , serum cholesterol, total 314 mg/dL 100-19 9 above high normal Not Available [facility] ([facility]) [address] [facility] [place], [address], 09/28/2017 09:22:40 09/28/19 18 09/28/2017 lipid panel , serum triglyceride s 701 mg/dL 0-149 alert high Not Available [facility] ([facility]) [address] [place], [address], 09/28/2017 09:22:40 09/28/19 18 09/28/2017 lipid panel , serum HDL cholesterol 39 mg/dL >39 below low normal Not Available [facility] ([facility]) [address] [place], [address], 09/28/2017 09:22:40 09/28/19 18 09/28/2017 lipid panel , serum VLDL cholesterol sebastián Commen t mg/dL 5-40 The calcu latio n for the VLDL nate stero l is not valid when trigl yceri de level is >400 mg/dL . Not Available [facility] ([facility]) [address] [facility], [place], [address], 09/28/2017 09:22:40 09/28/19 18 09/28/2017 lipid panel , serum LDL cholesterol calc Commen t mg/dL 0-99 Trigl yceri de resul t indic ated is too high for an accur ate LDL nate stero l estim ation . Not Available [facility] ([facility]) [address] [place], [address], 09/28/2017 09:22:40 09/28/19 18 09/28/2017 lipid panel , serum comment: BILINGUAL RECEPTIONIST Not Available [facility] ([facility]) [address] [place], [address], 09/28/2017 09:22:40 09/28/19 18 09/28/2017 HbA1c (hemo globi n A1c), blood hemoglobin A1C 9.7 % 4.8-5. 6 above high normal Pre-d iabet es: 5.7 - 6.4 Diabe catherine: >6.4 Glyce can contr ol for adult s with diabe catherine: <7.0 Not Available [facility] ([facility]) [address] [place], [address], 09/28/2017 09:22:41 09/28/19 18 09/28/2017 TSH, ultra -sens itive , serum TSH 30.990 uIU/m L 0.450- 4.500 above high normal Not Available [facility] ([facility]) [address], [place], [address], 09/28/2017 09:22:41 Result Notes None recorded. Problems Name Problem SNOMED Code Status Onset Date Resolution Date Notes Provider Name and Address Organization Details Recorded Time Essential hypertension 42792905 Active Uziel Landin MD Attn: Lamar june,[address] [facility], [place], [address], [place] - [facility] 6 11:24:56 Uncontrolled type 2 diabetes mellitus 782293690 Active Uziel Landin MD Attn: Lamar june,[address] [place], [address], [place] [facility] 6 11:24:56 Hyperlipidemia 34237739 Active Uziel Landin MD Attn: Lamar june,[address] [place], [address], [place] [facility] 6 11:24:56 Hypothyroidism 71171863 Active pt is on 225 mcg ( 8) Uziel Landin MD Attn: Lamar june,[address] [facility], [place], [address], [place] [facility] 8 10:00:08 Coronary arterioscleros is 76999486 Active s/p stent and CABG 05/2009 and 0 Uziel Landin MD Attn: Lamar june,[address] [facility], [place], [address], [place] - [facility] 6 11:24:56 Obesity 007830950 Active Uziel Landin MD Attn: Lamar june,[address] [place], [address], [place] [facility] 6 11:24:56 Benign prostatic hyperplasia without outflow obstruction 549565854 Active Uziel Landin MD Attn: Lamar g,[address] [facility], [place], [address], [facility] [place] - [facility] 6 11:24:56 Tinea pedis 2131317 Active Uziel Landin MD Attn: Lamar june,[address] [facility], [place], [address], [facility] [place] - [facility] 6 11:24:56 Liver enzymes outside reference range 423000061 Active Uziel Landin MD Attn: Lamar slade,[address] [facility], [place], [address], [facility] [place] - [facility] 6 11:24:56 Mixed anxiety and depressive disorder 952224689 Active Uziel Landin MD Attn: Lamar june,[address] [facility], [place], [address], [facility] [place] - [facility] 6 11:24:56 Indigestion 555463217 Active Uziel Landin MD Attn: Tylorgisela june,[address] [facility], [place], [address], [facility] [place] - [facility] 6 11:24:56 Problem Notes None recorded. Procedures Surgical History Date Name Laterality Status Provider Name and Address Organization Details Recorded Time 0 [facility] 15:47:22 0 [facility] 15:[facility]22 Arthrd ant arthur/xoral c1-c2 completed [facility] 12/19/2015 10:18:35 Hernia Repair completed [facility] 1 10:17:29 Imaging Results None recorded. Procedure Notes None recorded. Medical Equipment None Reported. Allergies No known drug allergies Medications Name Sig Start Date Stop Date Status Note LastModified by Organization Details LastModified Time fluoxetin e 40 mg capsule TAKE 1 CAPSULE BY MOUTH ONCE DAILY active Not Available Not Available No t Available metformin 500 mg tablet Take 1 tablet twice a day by oral route. 2014 active Not Available Not Available Not Avai lable pravastat in 40 mg tablet TAKE ONE TABLET BY MOUTH ONCE DAILY 2015 active Not Available Not Available Not Avai lable levothyro xine 300 mcg tablet Take 1 tablet every day by oral route. active patient called the office with this dose. Not Available Not Available Not Available lisinopri l 20 mg tablet TAKE 1 TABLET BY MOUTH ONCE DAILY active Not Available Not Available No t Available glipizide 10 mg tablet TAKE ONE TABLET BY MOUTH TWICE DAILY 12/22 completed Not Available Not Available Not Available Zithromax Z-John 250 mg tablet TAKE 2 TABLETS (500 MG) BY ORAL ROUTE ONCE DAILY FOR 1 DAY THEN 1 TABLET (250 MG) BY ORAL ROUTE ONCE DAILY FOR 4 DAYS 08/19 completed Not Available Not Available Not Available Lantus U-100 Insulin 100 unit/mL subcutane ous solution Inject 60 units every day by subcutan eous route in the evening for 30 days. 09/27 completed increase to 65 units Not Available Not Available Not Available amoxicill in 500 mg tablet Take 1 tablet 3 times a day by oral route for 7 days. 01/06 completed Not Available Not Available Not Available simvastat in 40 mg tablet TAKE 1 TABLET BY MOUTH AT BEDTIME active Not Available Not Available No t Available levothyro xine 25 mcg tablet Take 1 tablet(s ) EVERY DAY by oral route along with Levothyr oxine 200 mcg. 2017 active Not Available Not Available Not Avai lable pravastat in 80 mg tablet 1 tab daily active Not Available Not Available No t Available tamsulosi n 0.4 mg capsule Take 1 capsule every day by oral route. 2015 active Not Available Not Available Not Avai lable metformin 1,000 mg tablet TAKE ONE TABLET BY MOUTH TWICE DAILY 2016 active Not Available Not Available Not Avai lable ranitidin e 150 mg tablet Take 1 tablet twice a day by oral route. 02/05 completed pt not taking this med 7 Not Available Not Available Not Available lisinopri l 10 mg tablet TAKE ONE TABLET BY MOUTH ONCE DAILY 05/20 completed Not Available Not Available Not Available levothyro xine 200 mcg tablet TAKE ONE TABLET BY MOUTH ONCE DAILY 2017 active Not Available Not Available Not Avai lable pravastat in 20 mg tablet Take 1 tablet every day by oral route. 2014 active Not Available Not Available Not Avai lable Novolog U-100 Insulin aspart 100 unit/mL subcutane ous solution take insulin per sliding scale 4 times daily max dose of 100 units/da y active Not Available Not Available No t Available fluoxetin e 20 mg capsule TAKE 1 CAPSULE BY MOUTH ONCE DAILY WITH MEALS ALONG WITH 40 MG CAPSULE. active Not Available Not Available No t Available clotrimaz ole 1 % topical cream APPLY TO THE AFFECTED AND SURROUND ING AREAS OF SKIN BY TOPICAL ROUTE 2 TIMES PER DAY IN THE MORNING AND EVENING FOR 2 WEEKS 12/18 completed Not Available Not Available Not Available glipizide 5 mg tablet Take 1 tablet twice a day by oral route. 2014 active Not Available Not Available Not Avai lable Adult Low Dose Aspirin 81 mg tablet,de layed release Take 1 tablet every day by oral route. active Not Available Not Available No t Available pen needle, diabetic 31 gauge x 5/16 USE 1 NEEDLE WITH INSULIN ONCE DAILY. active Not Available Not Available No t Available Novolog FlexPen U-100 Insulin aspart 100 unit/mL (3 mL) subcutane ous Per sliding scale 05/20 completed Not Available Not Available Not Available Crestor 20 mg tablet Take 1 tablet every day by oral route. active Not Available Not Available No t Available metoprolo l tartrate 25 mg tablet Take half tablet(s ) twice a day by oral route. 02/05 completed not taking Not Available Not Available Not Available fenofibra te 160 mg tablet TAKE 1 TABLET BY MOUTH ONCE DAILY active Not Available Not Available No t Available Levemir FlexTouch U-100 Insulin 100 unit/mL (3 mL) subcutane ous pen INJECT 65 UNITS SUBCUTAN EOUSLY ONCE DAILY IN THE EVENING FOR 30 DAYS active Not Available Not Available No t Available Toujeo SoloStar U-300 Insulin 300 unit/mL (1.5 mL) subcutane ous pen Inject 55 units every day by subcutan eous route. 05/20 completed increase to 60 units Not Available Not Available Not Available Vitals Date Recorded Body height Body mass index (BMI) Body weight Heart rate Respiratory rate Body temperature Oxygen saturation Oxygen saturation in Arterial blood by Pulse oximetry Systolic And Diastolic Provider Name and Address Organization Details Last Updated DateTime 8 177.8 cm 38.8 kg/m2 372501. 1 g 68 /min 14 /min 98.8 [degF] 98 % 98 % 128/84 mm[Hg] [facility] 8 08:38:37 Date Recorded Body height Body mass index (BMI) Body weight Heart rate Respiratory rate Body temperature Oxygen saturation Oxygen saturation in Arterial blood by Pulse oximetry Systolic And Diastolic Provider Name and Address Organization Details Last Updated DateTime 7 177.8 cm 38.2 kg/m2 236227. 29 g 79 /min 12 /min 98.7 [degF] 95 % 95 % 138/88 mm[Hg] [facility] 7 09:01:09 Date Recorded Body height Body mass index (BMI) Body weight Heart rate Respiratory rate Body temperature Oxygen saturation Oxygen saturation in Arterial blood by Pulse oximetry Systolic And Diastolic Systolic And Diastolic Provider Name and Address Organization Details Last Updated DateTime 8 177.8 cm 37.8 kg/m2 643758. 15 g 72 /min 14 /min 98.7 [degF] 97 % 97 % 144/92 mm[Hg] 140/94 mm[Hg] [facility] 8 12:28:24 Date Recorded Body height Body mass index (BMI) Body weight Heart rate Respiratory rate Body temperature Oxygen saturation Oxygen saturation in Arterial blood by Pulse oximetry Systolic And Diastolic Provider Name and Address Organization Details Last Updated DateTime 7 177.8 cm 37.4 kg/m2 305415. 25 g 70 /min 12 /min 98.6 [degF] 97 % 97 % 150/96 mm[Hg] [facility] 7 11:36:04 Date Recorded Body height Body mass index (BMI) Body weight Heart rate Respiratory rate Body temperature Oxygen saturation Oxygen saturation in Arterial blood by Pulse oximetry Systolic And Diastolic Provider Name and Address Organization Details Last Updated DateTime 7 177.8 cm 37.3 kg/m2 275132. 02 g 65 /min 16 /min 98.5 [degF] 98 % 98 % 136/88 mm[Hg] [facility] [place] [facility] 7 09:25:45 Social History Question Answer Notes LastModified by Organizat ion Details LastModified Time Tobacco Smoking Status Former Smoker Quit - 2009 Maribel leonard, [place] - [facility] 12/19/2015 10:13:03 What Is Your Level Of Caffeine Consumption? Heavy Information not available 12/19/2015 How Much Tobacco Do You Chew? None Information not available 12/19/2015 What Type Of Diet Are You Following? SPECIFIC No Dairy, Low Meat, No Added Sugar Information not available 12/19/2015 Marital Status Information not available 12/19/2015 What Was The Date Of Your Most Recent Tobacco Screening? 09/27/2017 Information not available 09/22/2018 At What Age Did You Start Smoking Tobacco? 13 Information not available 12/19/2015 How Much Tobacco Do You Smoke? 2 PPD cgrandberry Information not available 09/12/2014 General Stress Level Medium Med - High Information not available 05/20/2017 How Many Years Have You Smoked Tobacco? 35 Information not available 12/19/2015 Sex: Unknown Functional Status Question Answer Note LastModified by Organizat ion Details LastModified Time What is your level of alcohol consumption? 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 Occasional Information not available 12/19/2015 Mental Status None recorded. Family History Relationship Description Onset Age of this Age Resolved Age Notes LastModified by Organization Details LastModified Time Mother Coronary arterioscler osis [email or web address] Not available 06/29 09:26:00 Mother Depressive disorder [email or web address] Not available 06/29 09:26:00 Mother Disorder of thyroid gland [email or web address] Not available 06/29 09:26:00 Father Coronary arterioscler osis cgrandberry Not available 06/29 09:26:00 Father Depressive disorder [email or web address] Not available 06/29 09:26:00 Father Diabetes mellitus [email or web address] Not available 06/29 09:26:00 Father Heart disease [email or web address] Not available 06/29 09:26:00 Father Essential hypertension [email or web address] Not available 0 07/11/2015 09:26:00 Father Hyperlipidem ia cgrandberry Not available 06/29 09:26:00 Father Kidney disease [email or web address] Not available 06/29 09:26:00 Medical History Condition Response Coronary Artery Disease Y Other N High Blood Pressure Y Atrial Fibrillation N Kidney or Bladder Problems Y Thyroid Problems Y GI Problems N Depression N COPD N Blood Clots N Skin Problems N Anemia N Heart Attack (MA) N Anxiety Disorder Y Diabetes Y Muscle, Joint, or Bone Problems N Seizures/Epilepsy N Acid Reflux (GERD) N Cancer Y Stroke N Asthma N Allergies N High Cholesterol Y Hepatitis N Liver Disease N Headaches N Osteoporosis N Heart Failure Y Immunizations Vaccine Type Date Status Note Provider Nam e and Address Organization Details Recorded Time Tdap 0 completed Maribel Sig[place], [place] - [facility] 06/18/2016 09:22:45 pneumococcal polysaccharide PPV23 6 completed Not Available [facility] 03/18/2019 02:30:16 Past Encounters Encounter ID Performer Location Encounter Start Date Encounter Closed Date Diagnosis/Indication Diagnosis SNOMED-CT Code Diagnosis ICD10 Code Diagnosis IMO Codes Diagnosis Note [id number] Haider Gray MD [facility] (Adult Med) [address] [place] [address] 09/12/2014 14:46:34 09/12/2014 17:19:25 Essential hypertension 73105197 Patient is not medication s. Start Lisinopril 10 mg po daily. Advised low salt diet,regul ar exercise and weight reduction. Uncontroll ed type 2 diabetes mellitus 187680178 Start Glipizide 5 mg po bid. Start Metformin 500 mg po bid Hyperlipidemia 69182256 Hypothyroidism 32395842 Ad vised patient to call office and confirm the dose of Levothyrox ine. Chek TSH. Coronary arteriosclerosis 78810880 Advised patient to take aspirin 81 mg po daily. Patient has insurance to follow the Cardiologi st. Obesity 767105179 Advised 1500 calory low fat,low calory,low carb diet,regul ar exercise and weight reduction. [id number] MD Enid [facility] (Adult Med) [address] [address] 09/19/2014 15:48:56 09/19/2014 17:02:55 Uncontrolled type 2 diabetes mellitus 703680809 Increase the Glipizide 5 mg po 2 tabs bid. Increase the Metformin 500 mg 2 tabs po bid Essential hypertension 04375378 Continue Lisinopril 10 mg po daily. Advised low salt diet,regul ar exercise and weight reduction. Hyperlipidemia 07841773 Co ntinue Pravastati n. Triglyceri christopher were high. Advised patient to decrease the consumptio n of sweets,sug ars,drinks ,soda. Regular exercise and weight reduction. Hypothyroidism 62738258 TS H is low and Free T4 is high. Decrease the Levothyrox ine to 200 mcg po daily. Repeat the TSH in 6 weeks. [id number] [facility] [address] [address] 04/04/2015 14:39:25 04/05/2015 10:44:24 Uncontrolled type 2 diabetes mellitus 504359266 E11.65 HBA1C 9.4. Patient only takes Metformin and Glipizide once daily. Advised patient to take the Metformin 1000 mg po bid and Glipizide 10 mg po bid. Repeat the HBA1C in 3 months. Essential hypertension 57022850 I10 Continue Lisinopril 10 mg po daily. Advised low salt diet,regul ar exercise and weight reduction. Hyperlipidemia 39450965 E78.2 Continue Pravastati n. LDL 86 Advised patient to decrease the consumptio n of sweets,sug ars,drinks ,soda. Regular exercise and weight reduction. Benign pro static hyperplasia without outflow obstruction 638015868 N40.0 c/o nocturnal frquency. Advised patient not drink fluids before bed time. Administra tion of pneumococcal vaccine 50358212 Z23 Tinea pedis 0667778 B35. 3 Liver enzy mes outside reference range 758159280 R94.5 Patient is not drinking alcohol. Liver enzymes normal on 10/30/14. Repeat the LFTs in 1 month. Screening for malignant neoplasm of prostate 758008519 Z12.5 Screening for malignant neoplasm of colon 389790319 Z12.11 [id number] MD Enid [facility] (Adult Med) [address] [place] [address] 07/11/2015 09:11:59 07/11/2015 11:14:04 Uncontrolled type 2 diabetes mellitus 282181471 E11.65 HBA1C 9.4. Patient forgot to do the labs. Continue Metformin 1000 mg po bid and Glipizide 10 mg po bid. Repeat the HBA1C today. Patient has no insurance. Essential hypertension 38601180 I10 Blood pressure well controlled . Continue Lisinopril 10 mg po daily. Advised low salt diet,regul ar exercise and weight reduction. Hyperlipidemia 93693179 E78.2 LDL 86. Continue Pravastati n. Patient will do labs today. Advised patient to decrease the consumptio n of sweets,sug ars,drinks ,soda. Regular exercise and weight reduction. Hypothyroidism 11063633 E03.9 Continue Levothyrox ine to 200 mcg po daily. Repeat the TSH. Obesity 181321163 E66.9 Advised 1500 calory low fat,low calory,low carb diet,regul ar exercise and weight reduction. Coronary arteriosclerosis 39881046 I25.10 Advised patient to take aspirin 81 mg po daily. Patient has no insurance to see the Cardiologi [id number] [facility] [address] [place] [address] 08/14/2015 14:17:50 08/14/2015 15:53:02 Uncontrolled type 2 diabetes mellitus 844475054 E11.65 Increase Toujeo 20 units daily Reduce Glipizide 10 mg once a day Essential hypertension 42405219 I10 continue Lisinopril and Metoprolol Hyperlipidemia 03968736 E78.2 with TG Discontinu e Pravastati n start pt on Crestor 20 mg daily ( pt does not have insurance )-sample given Hypothyroidism 11940576 E03.8 continue Levothyrox in 225 mcg daily Coronary arteriosclerosis 90036580 I25.10 s/p stent 05/2009 and 11/2009 last stress test was 2012 pt is not seeing cardio at present time- pt is planning to have insurance in near future Mixed anxi ety and depressive disorder 802185380 F41.8 start pt on Prozac 20 mg daily [id number] MD Silvestre Leger (Adult Med) [address] [place] [address] 09/30/2015 09:53:47 09/30/2015 16:26:56 Uncontrolled type 2 diabetes mellitus 166380833 E11.65 pt is not taking insulin for a wk ( ran out med ) Increase Toujeo 30 units daily continue Glipizide 10 mg once a day Hypothyroidism 15497228 E03.8 continue Levothyrox in 225 mcg daily Mixed anxi ety and depressive disorder 994957709 F41.8 Increase Prozac 40 mg daily Essential hypertension 90335630 I10 continue Lisinopril and Metoprolol Hyperlipidemia 76531782 E78.2 with TG Change Crestor to Simvastati n ( no insurance for pt ) Coronary arteriosclerosis 50921335 I25.10 s/p stent 05/2009 and 11/2009 last stress test was 2012 pt is not seeing cardio at present time- pt is planning to have insurance in near future Indigestion 431106929 R1 0.13 with history of gallstone pt to avoid fatty food will do us of gallbladde r when he gets insurance [id number] MD Silvestre Leger (Adult Med) [address] [place] [address] 12/19/2015 09:33:36 12/19/2015 16:37:35 Mixed anxiety and depressive disorder 070453411 F41.8 Increase Prozac 60 ( 40 with 20 mg ) mg daily pt to see psychiatri st declined to see counsellor -tried in the past and did not help Essential hypertension 54742786 I10 pt did not take meds today continue lisinopril and metoprolol for now reassess Uncontroll ed type 2 diabetes mellitus 328689254 E11.65 continue Toujeo 30 units daily /metformin e continue Glipizide 10 mg once a day Hypothyroidism 96780725 E03.8 continue Levothyrox in 225 mcg daily Hyperlipidemia 11363757 E78.2 with TG Change Crestor to Simvastati n ( no insurance for pt ) [id number] MD Silvestre Leger (Adult Med) [address] [place] [address] 01/21/2016 10:53:23 01/21/2016 12:18:38 Essential hypertension 59416803 I10 fair control pt to continue lisinopril and metoprolol for now reassess with next apt Diastasis recti 64277503 M62.08 pt is reassuredp t to avoid exercises such as heavy lifting which may make it worse [id number] [facility] [address] [place] [address] 03/03/2016 08:24:07 03/03/2016 14:26:02 Mixed anxiety and depressive disorder 738452324 F41.8 Increased Prozac 60 ( 40 with 20 mg ) mg daily pt to see psychiatri st pt has apt with counsellor Essential hypertension 38149841 I10 continue lisinopril and metoprolol for now low salt diet and exercise Uncontroll ed type 2 diabetes mellitus 427297460 E11.65 Increase Toujeo 40 units daily with Novolog sliding scaleconti nue metformine Discontinu ed Glipizidep t to call with blood sugars Hypothyroidism 98771846 E03.8 continue Levothyrox in 200 mcg daily Hyperlipidemia 19294572 E78.2 with TGcontinue Simvastati n [id number] [facility] [address] [place] [address] 06/18/2016 08:49:42 06/18/2016 13:55:40 Essential hypertension 52508892 I10 elevated due to noncomplia nt with med continue lisinopril and metoprolol for now low salt diet and exercise Hyperlipidemia 70217239 E78.2 with TG/ elevated TG due to uncontroll ed DM and thyroidcon tinue Simvastati nAdd fenofibrat e -pt to use [facility] pharmacypt to go to ER any symptoms of pancreatit is -discussed with pt Uncontroll ed type 2 diabetes mellitus 393386169 E11.65 Increase Toujeo 50 units daily pt stopped Novolog sliding scale on his own .-pt to restart novolog with sliding scaleconti nue metformine pt to call with blood sugars in 1 wk Hypothyroidism 99034656 E03.8 not well controlled due to noncomplia nt with med -back on med for last 2 wks continue Levothyrox in 200 mcg daily for now and recheck in 2 month Mixed anxi ety and depressive disorder 027775169 F41.8 continue Prozac 60 ( 40 with 20 mg ) mg daily pt to see psychiatri st pt did not see counsellor [id number] [facility] [address] [place] [address] 08/14/2016 08:45:32 08/18/2016 15:54:01 Acute bronchitis 53242505 J20.9 [id number] [facility] [address] [place] [address] 08/19/2016 08:51:36 08/19/2016 11:04:10 Essential hypertension 81672804 I10 continue lisinopril and metoprolol for now low salt diet and exercise Uncontroll ed type 2 diabetes mellitus 760906066 E11.65 Increase Toujeo 55 units daily with novolog with sliding scaleconti nue metformine pt to do labs Mixed anxi ety and depressive disorder 923987307 F41.8 improving continue Prozac 60 ( 40 with 20 mg ) mg daily pt did not see counsellor Coronary arteriosclerosis 63705590 I25.10 s/p stent and CABGstable on current meds Acute bronchitis 8519041 2 J20.9 keep hydratedRe turn to clinic if problem continues [id number] Uziel Landin MD [facility] (Adult Med) [address] [place] [address] 01/06/2017 08:47:34 01/11/2017 15:06:36 Essential hypertension 88083715 I10 not well controlled due to noncomplia nt with meds continue lisinopril and metoprolol for now low salt diet and exercise Hyperlipidemia 28335292 E78.2 with TG/ elevated TG due to uncontroll ed DM and thyroidcon tinue Simvastati npt is on fenofibrat e -pt to use [facility] pharmacypt to go to ER any symptoms of pancreatit is -discussed with pt Uncontroll ed type 2 diabetes mellitus 272676894 E11.65 noncomplia nt with insulin and medspt to take Toujeo 55 units daily with novolog with sliding scale continue metformine pt to do labs Mixed anxi ety and depressive disorder 164745716 F41.8 continue Prozac 60 ( 40 with 20 mg ) mg daily pt did not see counsellor [id number] [facility] [address] [place] [id number] 02/05/2017 09:13:23 02/08/2017 17:43:10 Essential hypertension [id number] I10 pt to increase lisinopril 20 mg daily pt is not taking metoprolol ( HR is in 60's without metoprolol ) low salt diet and exercise Hyperlipidemia 30384942 E78.2 with TG/ elevated TG due to uncontroll ed DM and thyroidcon tinue Simvastati npt is not taking fenofibrat e due to cost -pt [facility] Uncontroll ed type 2 diabetes mellitus 174363071 E11.65 Improving slowlypt to take Toujeo 60 units daily with novolog with sliding scale continue metformine Hypothyroidism 05195817 E03.8 stable continue Levothyrox in 200 mcg daily Mixed anxi ety and depressive disorder 434996731 F41.8 continue Prozac 60 ( 40 with 20 mg ) mg daily pt did not see counsellor Coronary arteriosclerosis 11747336 I25.10 s/p stent and CABGcontin ue current meds including asa Screening for malignant neoplasm of colon 473858379 Z12.11 pt does not have insurance for colonoscop y [facility] [address] [place] [address] 05/20/2017 08:24:18 05/21/2017 08:48:16 Essential hypertension 96368973 I10 stable pt to continue lisinopril 20 mg daily pt is not taking metoprolol ( HR is in 60's without metoprolol ) low salt diet and exercise Uncontroll ed type 2 diabetes mellitus 668467486 E11.65 Improving slowlypt to take Toujeo 60 units daily with novolog with sliding scale continue metformine Coronary arteriosclerosis 40361230 I25.10 s/p stent and CABGcontin ue current meds including asa Mixed anxi ety and depressive disorder 587575765 F41.8 continue Prozac 60 ( 40 with 20 mg ) mg daily pt did not see counsellor Hypothyroidism 46270252 E03.8 stable continue Levothyrox in 200 mcg daily [id number] Uziel Landin MD [facility] (Adult Med) [address] [place] [address] 09/27/2017 11:50:45 09/29/2017 10:54:21 Essential hypertension 63873343 I10 fair control due to anxiety regarding job ( missed days , fear of loosing job) pt to continue lisinopril 20 mg daily low salt diet and exercise Coronary arteriosclerosis 94639356 I25.10 s/p stent and CABGcontin ue current meds including asa Mixed anxi ety and depressive disorder 652526192 F41.8 fair control continue Prozac 60 ( 40 with 20 mg ) mg daily pt did not see counsellor Hypothyroidism 88460481 E03.8 continue Levothyrox in 200 mcg daily Uncontroll ed type 2 diabetes mellitus 974691384 E11.65 not well controlled due to noncomplia nt with novologpt to increase Levemir 70 units daily with novolog ( 100-150 -5 units , 151-200-10 units , 201-250-15 units , 251-300-20 units , 251-300-25 units , 301-350 -30 units )with sliding scale continue metformine Hyperlipidemia 03629018 E78.5 not well controlled / not taking fenofibrat ept to take fenofibrat e and statin Health Concerns Section Related Observation LastModified by Organization Detai ls LastModified Time None Recorded Concern Status LastModified by Organization Details LastModified Time None Recorded Advance Directives Directive None Recorded Payers Insurance Date Sequence Insurance Name Policy Number Policy Wang Covered Member ID Wang Member ID Guarantor Name 06/12/2019 1 [id number] [id number] Leeroy Schaefer [id number] Leeroy Schaefer 06/12/2019 1 *SELF PAY* Torie Schaefer 06/18/2016 SLIDING FEE SCHEDULE - DISCOUNT Leeroy Schaefer 09/27/2017 2 *SELF PAY* Torie Schaefer 07/03/2019 SLIDING FEE SCHEDULE - DISCOUNT Leeroy Schaefer 09/27/2017 SLIDING FEE SCHEDULE - DISCOUNT Leeroy Schaefer Notes Date Note Type Note Provider Name and Address Organization Details Recorded Time 017 text/h tml HyperlipidemiaReported by PatientHPIFor type of hyperlipidemia, patient reportscombined. For duration, patient reportschronic. For complications, patient reportscoronary artery disease (s/p stent and cabg). For risk factors, patient reportsdiabetes,hypertension, andobesity. For prior tests, patient reportshighest triglyceride level: (2821). For current therapy, patient reportscurrently taking: (med). For compliance, patient reportscompliant,compliant with diet, andexercises. Diabetes F/UReported by PatientHPIFor context, patient reportsnot seeing eye doctor yearlybut reportschecking feet regularly,taking aspirin daily,not missing doses of medications, andno side effects from medications. For associated symptoms, patient reportsnumbness of feetbut reportsno dizzinessandno calluses on feet. For review finger sticks, patient reportsfasting: ___(pt did not bring home blood sugars, but it has been above 200 per pt .). For labs, patient reportslast a1c result: 12.0. Hypertension F/UReported by PatientHPIFor associated symptoms, patient reportsno dizziness,no chest pain,no shortness of breath,no palpitations, andno edema. For lifestyle, patient reportsregular exerciseandlimiting/avoiding salt. For medications, patient reportstaking medications as directedandno side effects from medication. Anxiety/DepressionReported by PatientHPIFor context, patient reportsmajor life stressors (financial)(pt is starting new job). For associated symptoms, patient reportsanxietyandhypersensitivitybut reportsdenies homicidal ideations. For quality, patient reportssymptoms improved. For severity, patient reportsdenies suicidal ideations. For modifying factors, patient reportsmedications as directed. Upper Respiratory SymptomsReported by PatientUpper Respiratory SymptomsFor quality, patient reportscongestedanddry cough. For context, patient reportssick contact. For associated symptoms, patient reportsmorning coughbut reportsno feverandno sore throat. For location, patient reportschest. For duration, patient reportssymptoms lasting over 2 weeks. zUiel Landin MD Attn: Accounting ,[address] [place], [address] , [facility] 08/19/2016 09:23:57 017 text/h tml HyperlipidemiaReported by PatientHPIFor type of hyperlipidemia, patient reportscombined. For duration, patient reportschronic. For compliance, patient reportsnoncompliant. For complications, patient reportscoronary artery disease (s/p stent and cabg). For risk factors, patient reportsdiabetes,hypertension, andobesity. For prior tests, patient reportshighest triglyceride level: (2821). Diabetes F/UReported by PatientHPIFor context, patient reportsnot seeing eye doctor yearlyandmissing doses of medicationbut reportschecking feet regularly,taking aspirin daily, andno side effects from medications. For associated symptoms, patient reportsnumbness of feetbut reportsno dizzinessandno calluses on feet. For review finger sticks, patient reportsfasting: ___(pt did not bring home blood sugars, but it has been above 200 per pt .). For labs, patient reportslast a1c result: 12.0. Hypertension F/UReported by PatientHPIFor medications, patient reportsnot taking medications as directedbut reportsno side effects from medication. For associated symptoms, patient reportsno dizziness,no chest pain,no shortness of breath,no palpitations, andno edema. For lifestyle, patient reportsregular exerciseandlimiting/avoiding salt. Anxiety/DepressionReported by PatientHPIFor context, patient reportsmajor life stressors (financial). For associated symptoms, patient reportsanxietyandhypersensitivitybut reportsdenies homicidal ideations. For quality, patient reportssymptoms improved. For severity, patient reportsdenies suicidal ideations. For modifying factors, patient reportsmedications as directed. pt missed f/u , did not do labs , not taking meds for few wks , does not have insurance . Needs sample of insulin . Uziel Landin MD Attn: Accounting ,[address] [place], [address] , [facility] 01/06/2017 13:55:13 017 text/h tml HyperlipidemiaReported by PatientHPIFor type of hyperlipidemia, patient reportscombined. For duration, patient reportschronic. For compliance, patient reportsnoncompliant. For complications, patient reportscoronary artery disease (s/p stent and cabg). For risk factors, patient reportsdiabetes,hypertension, andobesity. For prior tests, patient reportshighest triglyceride level: (2821). Diabetes F/UReported by PatientHPIFor context, patient reportsnot seeing eye doctor yearlybut reportschecking feet regularly,taking aspirin daily,not missing doses of medications, andno side effects from medications. For associated symptoms, patient reportsnumbness of feetbut reportsno dizzinessandno calluses on feet. For labs, patient reportslast a1c result: 9.2. For review finger sticks, (pt did not bring home blood sugars, but it has been below 200 per pt .). Hypertension F/UReported by PatientHPIFor associated symptoms, patient reportsno dizziness,no chest pain,no shortness of breath,no palpitations, andno edema. For lifestyle, patient reportsregular exerciseandlimiting/avoiding salt. For medications, patient reportstaking medications as directedandno side effects from medication. Anxiety/DepressionReported by PatientHPIFor context, patient reportsmajor life stressors (financial). For associated symptoms, patient reportsanxietyandhypersensitivitybut reportsdenies homicidal ideations. For quality, patient reportssymptoms improved. For severity, patient reportsdenies suicidal ideations. For modifying factors, patient reportsmedications as directed. Pt does not have insurance . Needs sample of insulin . Uziel Landin MD Attn: Accounting ,[address] [place], [address] , [facility] [place] [facility] 02/05/2017 09:56:07 018 text/h tml HyperlipidemiaReported by PatientHPIFor type of hyperlipidemia, patient reportscombined. For duration, patient reportschronic. For compliance, patient reportsnoncompliant. For complications, patient reportscoronary artery disease (s/p stent and cabg). For risk factors, patient reportsdiabetes,hypertension, andobesity. For prior tests, patient reportshighest triglyceride level: (2821). Diabetes F/UReported by PatientHPIFor context, patient reportsnot seeing eye doctor yearlybut reportschecking feet regularly,taking aspirin daily,not missing doses of medications, andno side effects from medications. For associated symptoms, patient reportsnumbness of feetbut reportsno dizzinessandno calluses on feet. For labs, patient reportslast a1c result: 9.2. For review finger sticks, (pt did not bring home blood sugars, but it has been below 200 per pt .). Hypertension F/UReported by PatientHPIFor associated symptoms, patient reportsno dizziness,no chest pain,no shortness of breath,no palpitations, andno edema. For lifestyle, patient reportsregular exerciseandlimiting/avoiding salt. For medications, patient reportstaking medications as directedandno side effects from medication. Anxiety/DepressionReported by PatientHPIFor context, patient reportsmajor life stressors (financial). For associated symptoms, patient reportssleep disturbancesbut reportsdenies homicidal ideationsandmood good. For quality, patient reportssymptoms improved. For severity, patient reportsdenies suicidal ideations. For modifying factors, patient reportsmedications as directed. Pt does not have insurance . Needs refill on insulin. Uziel Landin MD Attn: Accounting ,[address] [place], [address] , [facility] [place] [facility] 05/20/2017 09:09:20 018 text/h tml HyperlipidemiaReported by PatientHPIFor type of hyperlipidemia, patient reportscombined. For duration, patient reportschronic. For compliance, patient reportsnoncompliant. For complications, patient reportscoronary artery disease (s/p stent and cabg). For risk factors, patient reportsdiabetes,hypertension, andobesity. For prior tests, patient reportshighest triglyceride level: (2821). Diabetes F/UReported by PatientHPIFor context, patient reportsnot seeing eye doctor yearlyandmissing doses of medicationbut reportschecking feet regularly,taking aspirin daily, andno side effects from medications. For associated symptoms, patient reportsnumbness of feetbut reportsno dizzinessandno calluses on feet. For labs, patient reportslast a1c result: 9.2. For review finger sticks, (pt did not bring home blood sugars, but it has been below 200 per pt .). Hypertension F/UReported by PatientHPIFor associated symptoms, patient reportsno dizziness,no chest pain,no shortness of breath,no palpitations, andno edema. For lifestyle, patient reportsregular exerciseandlimiting/avoiding salt. For medications, patient reportstaking medications as directedandno side effects from medication. Anxiety/DepressionReported by PatientHPIFor context, patient reportsmajor life stressors (financial). For associated symptoms, patient reportsanxietyanddepressionbut reportsdenies homicidal ideations. For quality, patient reportssymptoms improved. For severity, patient reportsdenies suicidal ideations. For modifying factors, patient reportsmedications as directed.pt is feeling anxious about loosing job , pt missed few days last wk due to uncontrolled blood sugars . Uziel Landin MD Attn: Accounting ,[address] [place], [address] , [facility] [place] [facility] 09/28/2017 14:20:48
[2024-11-22 18:57] LABS: Hemoglobin A1C 7.3 % (<5.7)
[2024-11-22 19:02] LABS: Alanine Aminotransferase 141 U/L (6-50); Albumin Level 4.2 g/dL (3.5-5.1); Alkaline Phosphatase 74 U/L (38-126); Anion Gap 10 mmol/L (4-12); Aspartate Amino Transferase 74 U/L (17-59); Bilirubin,Total 0.4 mg/dL (0.2-1.3); Blood Urea Nitrogen 24 mg/dL (9-20); Calcium 9.6 mg/dL (8.4-10.2); Carbon Dioxide 30 mmol/L (22-30); Chloride 98 mmol/L (98-107); Cholesterol 153 mg/dL (0-200); Estimated Glomerular Filt Rate 22; Glucose 141 mg/dL (65-110); HDL Direct 39 mg/dL; Potassium 4.2 mmol/L (3.4-5.0); Sodium 138 mmol/L (137-145); Total Protein 7.5 g/dL (6.3-8.2); Triglycerides 163 mg/dL (<150)
[2024-11-22 19:28] LABS: Hematocrit 38.8 % (42.0-52.0); Hemoglobin 12.3 g/dL (14.0-18.0); Immature Granulocyte Percent A 0.1 % (0-0.5); Lymphocytes Absolute Auto 1.67 K/mm3 (0.9-3.2); Mean Corpuscular HGB Conc 31.7 g/dl (32-36); Mean Corpuscular Hemoglobin 28.1 pg (26-34); Mean Corpuscular Volume 88.6 fl (80-100); Nucleated Red Blood Cells Absolute Auto 0.000 K/mm3 (0.0-0.012); Nucleated Red Blood Cells Perc 0.0 % (0.0-0.2); Platelet Count Result 174 k/mm3 (150-375); Red Blood Count 4.38 M/mm3 (4.6-6.20); White Blood Count 6.9 K/mm3 (4.5-10.0)
[2024-11-22 19:40] LABS: MALB Creatinine Ratio 5.9 mg/g (0-30)
[2024-11-22 19:54] LABS: Prostate Specific Antigen 0.9 ng/mL (< OR = 4.0)
[2024-11-22 20:01] LABS: Thyroid Stimulating Hormone > 100.000 uIU/mL (0.465-4.680)
[2024-11-22 20:13] LABS: Vitamin B12 646.0 pg/mL (239-931)
== END 2024-11-22 12:16 | disposition home or self-care (01) ==
LOC: ANHBWCLAB 12:17
PROVIDERS: PCP Nurse Practitioner Adult Health; Visit Provider Nurse Practitioner Adult Health
DX: E11.9 Type 2 diabetes mellitus without complications (principal); Z79.4 Long term (current) use of insulin; E03.9 Hypothyroidism, unspecified; Z12.5 Encounter for screening for malignant neoplasm of prostate; I10 Essential (primary) hypertension; E55.9 Vitamin D deficiency, unspecified; Z51.81 Encounter for therapeutic drug level monitoring
CPT/HCPCS: 36415; 80053; 80061; 82043; 82306; 82565; 82607; 83036; 84153; 84443; 85025; G0103

== ENCOUNTER 2024-12-14 08:28 | Outpatient (CLI) | payer MEDICARE, MEDICAID, SELFPAY ==
--- OUTSIDE RECORDS SUMMARY | 2024-12-13 06:00 | XMS_ITS ---
Author Organization [facility] [employer] [facility] Address [facility] [address] [facility] [address] [place] [address] Care Team Providers Care Occupational Health Nurse Manager Name Role Phone Michelle Drake APRN Primary Care Provider Bhavya Sin Unavailable [phone] Bekah Hurtado Unavailable [phone] REASON FOR VISIT Therapy Visit Social History Sex Assigned At : Social History Observation Description Sex Assigned At Male Encounters Encounter Location Date Provider Diagnosis [facility] [place] [address] [facility] [address] [place] [address] 12/13/2024 Bekah Hurtado Plan Of Treatment No Information Progress Notes * JACQUELIN CONRAD DDOB:[birth year] (64 yo M)Acc No.[id number]:12/13/2024 Patient: Jean Paul JACQUELIN TAO Provider: Marvin HURTADO LCSW :1960 A ge:64 Y S ex:Male Date:12/13/2024 Phone: Address:[address], [address] [facility], [facility] Pcp:Michelle Drake APRN Data: * Chief Complaints: * 1 . Therapy Visit. Billing Information: * Procedure Codes: * Sign off status: Completed Signatures: No Ad Hoc Signature Added true * Provider: Marvin HURTADO LCSW Date: 1 Generated for Printi ng/Faxing/eTransmitting on: 08:40 AM CDT
--- OUTSIDE RECORDS SUMMARY | 2024-12-14 08:40 | XMS_ITS | Patient Health Record ---
Author Organization [facility] [place] Address [address] [place] [address] Care Team Providers Care Funeral Planning Counselor Name Role Phone Michelle Drake APRN Primary Care Provider Bhavya Sin Unavailable [phone] Bryant Bekah Unavailable [phone] Allergies No Known Allergies Reason For Referral No Information Medications Medication SIG (Take, Route, Frequency, Duration) Notes Start Date End Date Status Insulin Lispro (1 Unit Dial) 100 UNIT/ML Solution Pen-injector Subcutaneous 15 UNITS AC 06/21/2023 Active metFORMIN HCl 1000 MG Tablet 1 tablet with a meal Oral twice a day 06/21/2023 Active Austedo 9 MG Tablet 2 tablet with food Orally Twice a day; Duration: 30 days 18 mg twice a day Active Levothyroxine Sodium 200 MCG Tablet Oral in addition to 25 MCG 06/21/2023 Active Gabapentin 800 MG Tablet 1 tablet Orally three times a day Active Torsemide 20 MG Tablet as directed Oral 06/21/2023 Active ULTRA-FINE SHORT PEN NEEDLE 31 gauge x 5/16 NEEDLE, DISPOSABLE MISCELLANEOUS *Reorder from [employer] for eRx and Interaction Alerts* 06/21/2023 Active Rexulti 1 MG Tablet 1 tablet Oral Once a day; Duration: 30 days Active Levemir FlexPen 100 unit/mL (3 mL) INSULIN PEN (ML) 32 SUBCUTANEOUS bid 06/21/2023 Active Primidone 250 MG Tablet Oral 06/21/2023 Active Tamsulosin HCl 0.4 MG Capsule Oral 06/21/2023 Active Rosuvastatin Calcium 40 MG Tablet Oral 06/21/2023 Active Mounjaro 10 MG/0.5ML Solution Pen-injector as directed Subcutaneous 10 units Active Omeprazole 40 MG Capsule Delayed Release 1 capsule 30 minutes before morning meal Orally Once a day *Pick strength-form from [employer] for eRX* 06/21/2023 Active Levothyroxine Sodium 25 MCG Tablet Oral in addition to 200 mcg 06/21/2023 Active Nitroglycerin 0.4 MG Tablet Sublingual Sublingual 06/21/2023 Active Metoprolol Succinate ER 25 MG Tablet Extended Release 24 Hour 0.5 tablets Oral Once a day 06/21/2023 Active Losartan Potassium 25 MG Tablet 1 tablet Orally Once a day 06/21/2023 Active FLUoxetine HCl 40 MG Capsule 1 capsule Oral Once a day; Duration: 30 days Active DULoxetine HCl 30 MG Capsule Delayed Release Particles 1 capsule Orally Once a day; Duration: 90 days Active DULoxetine HCl 60 MG Capsule Delayed Release Particles 1 cap Orally Once a day; Duration: 90 days Active traZODone HCl 50 MG Tablet 1 tablet at bedtime Oral at bedtime; Duration: 90 days Active Immunizations Vaccine Route Administration Date Status Comme nts Tdap Unknown 10/19/2017 Administered Social History Tobacco Use: Social History Observation Description Date Details (start date - stop date) Former Smoker NA - NA Sex Assigned At : Social History Observation Description Sex Assigned At Male Social History Tobacco Use: Social Info Question Answer Notes Tobacco Control (Standard) Tobacco use: Former smoker How long has it been since you last smoked? Greater than 10 years Additional Findings: Tobacco non-user Current no nsmoker Additional Details Category Social Info Options Details Migrated Social History Migrated Social History Alcohol Intake: None 01/02/2020,Tobacco Years: Former smoker 01/02/2020,Smoking Status: 25 01/07/2023 Problems Problem Type SNOMED Code ICD Code Onset Dates Problem Status W/U Status Risk Notes Problem Severe recurrent major depression without psychotic features (83597549) Major depressive disorder, recurrent severe without psychotic features (F33.2) 01/08/20 23 Active confirmed Problem Generalized anxiety disorder (17762688) Generalized anxiety disorder (F41.1) 06/21/19 24 Active confirmed Problem Posttraumatic stress disorder (49368732) Post-traumatic stress disorder, chronic (F43.12) 06/21/19 24 Active confirmed Problem Primary insomnia (0764477) Primary insomnia (F51.01) 06/21/19 24 Active confirmed Problem Screening for cardiovascular system disease (441854423) Encounter for screening for cardiovascular disorders (Z13.6) Active confirmed Problem Dietary management surveillance (619901585) Dietary counseling and surveillance (Z71.3) Active confirmed Problem Depression Screening (718076552) Encounter for screening for depression (Z13.31) Active confirmed Problem Long-term current use of drug therapy (246466170) [facility] drug therapy (Z79.899) Active confirmed Problem 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 Problem Essential hypertension (93959700) Benign essential HTN (I10) Active confirmed Vital Signs Heart Rate 82 /min 09/19/2024 Respiratory Rate 16 /min 09/19/2024 Blood pressure diastolic 74 mm Hg 09/19/2024 Height-cm 177.80 cm 09/19/2024 Weight-kg 107.05 kg 09/19/2024 Height 70.00 in 09/19/2024 Blood pressure systolic 116 mm Hg 09/19/2024 Weight 236 lbs 09/19/2024 BMI 33.86 kg/m2 09/19/2024 Encounters Encounter Location Date Provider Diagnosis [facility] [employer] [place] [address] [address] 12/15/2023 Bekah Hurtado Major depressive disorder, recurrent severe without psychotic features F33.2 ; Generalized anxiety disorder F41.1 and Post-traumatic stress disorder, chronic F43.12 [facility] [employer] [place] [address] [address] 12/24/2023 Bhavya Thersarika 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 ; Major depressive disorder, recurrent severe without psychotic features F33.2 ; Generalized anxiety disorder F41.1 ; Post-traumatic stress disorder, chronic F43.12 and Primary insomnia F51.01 [facility] [employer] [place] [address] [address] 02/02/2024 Bekah Hurtado Major depressive disorder, recurrent severe without psychotic features F33.2 ; Generalized anxiety disorder F41.1 and Post-traumatic stress disorder, chronic F43.12 [place] [address] [address] 02/17/2024 Bekah Hurtado Major depressive disorder, recurrent severe without psychotic features F33.2 ; Generalized anxiety disorder F41.1 and Post-traumatic stress disorder, chronic F43.[address] [address] 04/25/2024 Bhavya Thersarika 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 ; Major depressive disorder, recurrent severe without psychotic features F33.2 ; Generalized anxiety disorder F41.1 ; Post-traumatic stress disorder, chronic F43.12 and Primary insomnia F51.[address] [address] 07/21/2024 Bhavya Lopez [facility], [address] [place] [address] 07/27/2024 Bhavya Thery Encounter for screen ing for depression Z13.31 ; Major depressive disorder, recurrent severe without psychotic features F33.2 ; Encounter for screening for cardiovascular disorders Z13.6 ; Dietary counseling and surveillance Z71.3 ; Benign essential HTN I10 ; 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 ; Generalized anxiety disorder F41.1 ; Post-traumatic stress disorder, chronic F43.12 and Primary insomnia F51.[address] [address] 08/17/2024 Bhavya Thery [facility], [place] [address] [address] 09/19/2024 Bhavya Thery Encounter for screen ing for depression Z13.31 ; Major depressive disorder, recurrent severe without psychotic features F33.2 ; Encounter for screening for cardiovascular disorders Z13.6 ; Dietary counseling and surveillance Z71.3 ; Benign essential HTN I10 ; 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 [facility] [address] [address] 12/28/2023 Bhavya Thery [facility] [address] [address] 02/08/2024 Bhavya Thery [facility] Z79.899 [facility] [address] [address] 05/16/2024 Bhavya Thery 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 [facility] [address] [address] 06/14/2024 Bhavya Thery 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 Provider can order medication once approval received. 02/08/2024 [facility] drug therapy (ICD-10 - Z79.899) Electronic Prior Authorization was requested for Austedo 6 MG Tablet. Provider can order medication once approval received. 05/16/2024 Medication-induc ed movement disorder (ICD-10 - G25.70) Patient been taking Austedo 12 mg BID Austedo XR 18 mg pa approved per pharmacy sent new script for Austedo XR 24 mg daily to [facility] for PA approval 05/16/24 06/14/2024 Medication-induc ed movement disorder (ICD-10 - G25.70) Electronic Prior Authorization was requested for Austedo XR 24 MG Tablet Extended Release 24 Hour. Provider can order medication once approval received. 06/14/2024 Medication-induc ed movement disorder (ICD-10 - G25.70) 07/27/2024 Major depressive disorder, recurrent severe without psychotic features (ICD-10 - F33.2) Learning About Depression material was published, Learning About Depression Screening material was published, Learning About How to Get Help During a Mental Health Crisis material was published, Depression Treatment: Care Instructions material was published, Preventing Depression From Coming Back: Care Instructions material was published 1.Depresson Increase Rexulti 2 mg daily Having increase depresison, low motivation, interest and insomnia monitor DM and BS, monitor B/P 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 Anxiety Prozac 40 mg Cymbalta 90 mg daily in am 3. Insomnia conitnue to have sleep issues schedule by PCP for sleep study hx JOSH and CPAP Sleep hygiene education Trazodone 50 mg 4.Tardive dyskinesia - Austedo XR 18 MG PA denied Austedo 12 mg twice daily for tardive dyskinesia management- [facility] - He reports oral movements and intermediate hand shakes - on Austedo, AIMS= 8 12/24/23 AIMS= 5 [...] to the medication Laboratory tests- obtain from PCP/ [facility] 5. 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 Follow-up appointments -refer to therapy . Medication management educated on rx, benefits, side effects andrisk - Reassess medication regimen during follow-up appointments http_s://www. mi.org/About-Me ntal-Illness/Me fbsc-Atxtgc-Isf ditions http_s://psychc entrGetMeMedia.com/depr ession/the-cogn itive-symptoms- of-depression#t reatments http__s://www.[facility].gov/hea [facility]/topics/ment jt-rculzf-fbqpv ations http__s://www.[facility].org/About-M ental-Illness/T reatments/Menta p-Huwlld-Gzaehp tions educated on all medications, benefits, side effects [...] effects including loss of libido, increased suicidal thoughts/behavi ors in children and young adults, and serotonin [...] and interactions with prescribed medications.. - 12/24/2023 Medication-induc ed movement disorder (ICD-10 - G25.70) 1.Depresson Rexulti 1 mg daily 2. Anxiety Prozac 40 mg Cymbalta 90 mg daily in am 3. Insomnia Trazodone 50 mg 4.Tardive dyskinesia - Increase Austedo XR 18 MG daily in am for tardive dyskinesia management- [facility] - He reports increase oral movements [...] - Reassess medication regimen during follow-up appointments http_s://www. mi.org/About-Me ntal-Illness/Me lblc-Ovdcqa-Cwh ditions http_s://psychc [employer].com/depr ession/the-cogn itive-symptoms- of-depression#t reatments http__s://www.[facility].gov/[facility]/topics/ment lx-kmjuat-yapra ations http__s://www.[facility].org/About-M ental-Illness/T reatments/Menta e-Uegrao-Qbbvqo tions educated on all medications, benefits, side effects [...] effects including loss of libido, increased suicidal thoughts/behavi ors in children and young adults, and serotonin [...] and interactions with prescribed medications.. - 02/17/2024 Major depressive disorder, recurrent severe without psychotic features (ICD-10 - F33.2) 07/27/2024 Encounter for screening for depression (ICD-10 - Z13.31) 1.Depresson Increase Rexulti 2 mg daily Having increase depresison, low motivation, interest and insomnia monitor DM and BS, monitor B/P 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 Anxiety Prozac 40 mg Cymbalta 90 mg daily in am 3. Insomnia conitnue to have sleep issues schedule by PCP for sleep study hx JOSH and CPAP Sleep hygiene education Trazodone 50 mg 4.Tardive dyskinesia - Austedo XR 18 MG PA denied Austedo 12 mg twice daily for tardive dyskinesia management- [facility] - He reports oral movements and intermediate hand shakes - on Austedo, AIMS= 8 12/24/23 AIMS= 5 [...] to the medication Laboratory tests- obtain from PCP/ [facility] 5. 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 Follow-up appointments -refer to therapy . Medication management educated on rx, benefits, side effects andrisk - Reassess medication regimen during follow-up appointments http_s://www.na mi.org/About-Me ntal-Illness/Me fqxc-Ctntxf-Zqh ditions http_s://psychc [employer].Pak[employer]/depr ession/the-cogn itive-symptoms- of-depression#t reatments http__s://www.n [facility].gov/a [facility]/topics/ment kx-poiqvs-dtaee ations http__s://www.n [facility].org/About-M ental-Illness/T reatments/Menta f-Xohnzr-Rfeect tions educated on all medications, benefits, side effects [...] effects including loss of libido, increased suicidal thoughts/behavi ors in children and young adults, and serotonin [...] and interactions with prescribed medications.. - 04/25/2024 Medication-induc ed movement disorder (ICD-10 - G25.70) Learning About [...] mg twice daily for tardive dyskinesia management- [facility] - He reports increase oral movements [...] - Reassess medication regimen during follow-up appointments http_s://www.na pa.org/About-Me ntal-Illness/Me uiba-Arelhn-Nwf ditions http_s://psychc entral.com/depr ession/the-cogn itive-symptoms- of-depression#t reatments http__s://www.n [facility].nih.gov/hea [facility]/topics/ment kg-sskdzh-uauzu ations http__s://www.n [facility].org/About-M ental-Illness/T reatments/Menta y-Wqoujz-Zjikzf tions educated on all medications, benefits, side effects [...] effects including loss of libido, increased suicidal thoughts/behavi ors in children and young adults, and serotonin [...] neurotoxicity and interactions with prescribed medications.. - 09/19/2024 Encounter for screening for depression (ICD-10 - Z13.31) 1.Depresson decrease Rexulti 1 mg daily- having increase TD symptoms Having increase depresison, low motivation, interest and insomnia-will schedule therapy SUDEEP monitor DM and BS, monitor B/P see PCP and police patrol lieutenant - patient schedule to be seen, and address medications and simply educated to take all medications as prescribed Educated patient on taking Cymbalta 90 mg daily for depression and anxiety and help motivation, interest and mood 2. Anxiety Prozac 40 mg Cymbalta 90 mg daily in am 3. Insomnia conitnue to have sleep issues schedule by PCP for sleep study hx JOSH and CPAP Sleep hygiene education Trazodone 50 mg 4.Tardive dyskinesia - Austedo XR 18 MG PA denied increase Austedo 18 mg twice daily for tardive dyskinesia management- [facility] - He reports oral movements and intermediate hand shakes - on Austedo, AIMS= 8 12/24/23 AIMS= 5 [...] to the medication Laboratory tests- obtain from PCP/ [facility] 5. 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 Follow-up appointments -refer to therapy . Medication management educated on rx, benefits, side effects andrisk - Reassess medication regimen during follow-up appointments http_s://www. mi.org/About-Me ntal-Illness/Me lkhe-Albhqz-Bum ditions http_s://psychc [employer].com/depr ession/the-cogn itive-symptoms- of-depression#t reatments http__s://www.[facility].gov/a [facility]/topics/ment oz-vbfdnn-unzoo ations http__s://www.[facility].org/About-M ental-Illness/T reatments/Menta j-Rcbmou-Nroqlx tions educated on all medications, benefits, side effects [...] effects including loss of libido, increased suicidal thoughts/behavi ors in children and young adults, and serotonin [...] neurotoxicity and interactions with prescribed medications.. - 09/20/2024 Major depressive disorder, recurrent severe without psychotic features (ICD-10 - F33.2) 01/24/2024 Medication-induc ed movement disorder (ICD-10 - G25.70) Learning About Movement Disorders From Antipsychotic Medicines material was published 1.Depresson Rexulti 1 mg daily 2. Anxiety Prozac 40 mg Cymbalta 90 mg daily in am 3. Insomnia Trazodone 50 mg 4.Tardive dyskinesia - Austedo XR 18 MG PA denied Austedo 9 mg twice daily for tardive dyskinesia management- [facility] - He reports increase oral movements [...] - Reassess medication regimen during follow-up appointments http_s://www.[facility].org/About-Me ntal-Illness/Me amwd-Afjajt-Aop ditions http_s://psychc entral.com/depr ession/the-cogn itive-symptoms- of-depression#t reatments http__s://www.[facility].nih.gov/hea [facility]/topics/ment tv-lvpkbi-sgqnp ations http__s://www.[facility].org/About-M ental-Illness/T reatments/Menta p-Ezpozs-Jmnsdu tions educated on all medications, benefits, side effects [...] effects including loss of libido, increased suicidal thoughts/behavi ors in children and young adults, and serotonin [...] 02/02/2024 Generalized anxiety disorder (ICD-10 - F41.1) 12/15/2023 Major depressive disorder, recurrent severe without psychotic features (ICD-10 - F33.2) 12/15/2023 Generalized anxiety disorder (ICD-10 - F41.1) 12/24/2023 Major depressive disorder, recurrent severe without psychotic features (ICD-10 - F33.2) 1.Depresson Rexulti 1 mg daily 2. Anxiety Prozac 40 mg Cymbalta 90 mg daily in am 3. Insomnia Trazodone 50 mg 4.Tardive dyskinesia - Increase Austedo XR 18 MG daily in am for tardive dyskinesia management- [facility] - He reports increase oral movements [...] - Reassess medication regimen during follow-up appointments http_s://www.[facility].org/About-Me ntal-Illness/Me fupu-Obgvin-Apt ditions http_s://psychc entrGetMeMedia.com/depr ession/the-cogn itive-symptoms- of-depression#t reatments http__s://www.[facility].gov/a [facility]/topics/ment vm-dbdtqo-sttij ations http__s://www.[facility].org/About-M ental-Illness/T reatments/Menta f-Sjnxmc-Krcpks tions educated on all medications, benefits, side effects [...] effects including loss of libido, increased suicidal thoughts/behavi ors in children and young adults, and serotonin [...] mg twice daily for tardive dyskinesia management- [facility] - He reports increase oral movements [...] - Reassess medication regimen during follow-up appointments http_s://www. mi.org/About-Me ntal-Illness/Me tuql-Emkzvc-Yzj ditions http_s://psychc [employer].Pak[employer]/depr ession/the-cogn itive-symptoms- of-depression#t reatments http__s://www.[facility].nih.gov/hea [facility]/topics/ment bl-mxszca-hwpcm ations http__s://www.[facility].org/About-M ental-Illness/T reatments/Menta s-Ifthcc-Mihtix tions educated on all medications, benefits, side effects [...] effects including loss of libido, increased suicidal thoughts/behavi ors in children and young adults, and serotonin [...] neurotoxicity and interactions with prescribed medications.. - 09/20/2024 Generalized anxiety disorder (ICD-10 - F41.1) 09/19/2024 Major depressive disorder, recurrent severe without psychotic features (ICD-10 - F33.2) Learning About Depression material was published, Learning About Depression Screening material was published, Learning About How to Get Help During a Mental Health Crisis material was published, Depression Treatment: Care Instructions material was published, Preventing Depression From Coming Back: Care Instructions material was published 1.Depresson decrease Rexulti 1 mg daily- having increase TD symptoms Having increase depresison, low motivation, interest and insomnia-will schedule therapy SUDEEP monitor DM and BS, monitor B/P see PCP and police patrol lieutenant - patient schedule to be seen, and address medications and simply educated to take all medications as prescribed Educated patient on taking Cymbalta 90 mg daily for depression and anxiety and help motivation, interest and mood 2. Anxiety Prozac 40 mg Cymbalta 90 mg daily in am 3. Insomnia conitnue to have sleep issues schedule by PCP for sleep study hx JOSH and CPAP Sleep hygiene education Trazodone 50 mg 4.Tardive dyskinesia - Austedo XR 18 MG PA denied increase Austedo 18 mg twice daily for tardive dyskinesia management- [facility] - He reports oral movements and intermediate hand shakes - on Austedo, AIMS= 8 12/24/23 AIMS= 5 [...] to the medication Laboratory tests- obtain from PCP/ [facility] 5. 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 Follow-up appointments -refer to therapy . Medication management educated on rx, benefits, side effects andrisk - Reassess medication regimen during follow-up appointments http_s://www.[facility].org/About-Me ntal-Illness/Me slgc-Zhoejx-Rnw ditions http_s://psychGopeers/depr ession/the-cogn itive-symptoms- of-depression#t reatments http__s://www.[facility].nih.gov/[facility]/topics/ment we-rvlnzr-ozqes ations http__s://www.[facility].org/About-M ental-Illness/T reatments/Menta n-Vivaod-Byfdga tions educated on all medications, benefits, side effects [...] effects including loss of libido, increased suicidal thoughts/behavi ors in children and young adults, and serotonin [...] 02/17/2024 Generalized anxiety disorder (ICD-10 - F41.1) 04/25/2024 Major depressive disorder, recurrent severe without [...] mg twice daily for tardive dyskinesia management- [facility] - He reports increase oral movements [...] - Reassess medication regimen during follow-up appointments http_s://www.na mi.org/About-Me ntal-Illness/Me uslp-Wgqguj-Htp ditions http_s://psychc entral.com/depr ession/the-cogn itive-symptoms- of-depression#t reatments http__s://www.[facility].gov/a [facility]/topics/ment et-rxqnlp-xazrg ations http__s://www.n [facility].org/About-M ental-Illness/T reatments/Menta j-Yntmef-Mgsmro tions educated on all medications, benefits, side effects [...] effects including loss of libido, increased suicidal thoughts/behavi ors in children and young adults, and serotonin [...] neurotoxicity and interactions with prescribed medications.. - 07/27/2024 Encounter for screening for cardiovascular disorders (ICD-10 - Z13.6) 1.Depresson Increase Rexulti 2 mg daily Having increase depresison, low motivation, interest and insomnia monitor DM and BS, monitor B/P 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 Anxiety Prozac 40 mg Cymbalta 90 mg daily in am 3. Insomnia conitnue to have sleep issues schedule by PCP for sleep study hx JOSH and CPAP Sleep hygiene education Trazodone 50 mg 4.Tardive dyskinesia - Austedo XR 18 MG PA denied Austedo 12 mg twice daily for tardive dyskinesia management- [facility] - He reports oral movements and intermediate hand shakes - on Austedo, AIMS= 8 12/24/23 AIMS= 5 [...] to the medication Laboratory tests- obtain from PCP/ [facility] 5. 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 Follow-up appointments -refer to therapy . Medication management educated on rx, benefits, side effects andrisk - Reassess medication regimen during follow-up appointments http_s://www.na mi.org/About-Me ntal-Illness/Me iznu-Cvwpyl-Sbg ditions http_s://[employer]Pak[employer]/depr ession/the-cogn itive-symptoms- of-depression#t reatments http__s://www.n [facility].nih.gov/hea [facility]/topics/ment jw-wutrew-eyugq ations http__s://www.[facility].org/About-M ental-Illness/T reatments/Menta n-Kzhbzs-Axjkms tions educated on all medications, benefits, side effects [...] effects including loss of libido, increased suicidal thoughts/behavi ors in children and young adults, and serotonin [...] neurotoxicity and interactions with prescribed medications.. 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 Anxiety Prozac 40 mg Cymbalta 90 mg daily in am 3. Insomnia conitnue to have sleep issues schedule by PCP for sleep study hx JOSH and CPAP Sleep hygiene education Trazodone 50 mg 4.Tardive dyskinesia - Austedo XR 18 MG PA denied Austedo 12 mg twice daily for tardive dyskinesia management- [facility] - He reports oral movements and intermediate hand shakes - on Austedo, AIMS= 8 12/24/23 AIMS= 5 [...] to the medication Laboratory tests- obtain from PCP/ [facility] 5. 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 Follow-up appointments -refer to therapy . Medication management educated on rx, benefits, side effects andrisk - Reassess medication regimen during follow-up appointments http_s://www. mi.org/About-Me ntal-Illness/Me wnhq-Hidena-Qke ditions http_s://psychc entr[employer].com/depr ession/the-cogn itive-symptoms- of-depression#t reatments http__s://www.[facility].gov/hea [facility]/topics/ment og-issxhl-xntrj ations http__s://www.[facility].org/About-M ental-Illness/T reatments/Menta r-Xkncwq-Oisykw tions educated on all medications, benefits, side effects [...] effects including loss of libido, increased suicidal thoughts/behavi ors in children and young adults, and serotonin [...] mg twice daily for tardive dyskinesia management- [facility] - He reports increase oral movements [...] - Reassess medication regimen during follow-up appointments http_s://www.na mi.org/About-Me ntal-Illness/Me ixpp-Gzyzhn-Yzz ditions http_s://psychc entral.com/depr ession/the-cogn itive-symptoms- of-depression#t reatments http__s://www.n [facility].nih.gov/[facility]ro [facility]/topics/ment rm-adijgn-mjxmo ations http__s://www.[facility].org/About-M ental-Illness/T reatments/Menta f-Hbltpl-Ipdnuz tions educated on all medications, benefits, side effects [...] effects including loss of libido, increased suicidal thoughts/behavi ors in children and young adults, and serotonin [...] Post-traumatic stress disorder, chronic (ICD-10 - F43.12) 09/20/2024 Post-traumatic stress disorder, chronic (ICD-10 - F43.12) 09/19/2024 Encounter for screening for cardiovascular disorders (ICD-10 - Z13.6) 1.Depresson decrease Rexulti 1 mg daily- having increase TD symptoms Having increase depresison, low motivation, interest and insomnia-will schedule therapy SUDEEP monitor DM and BS, monitor B/P see PCP and police patrol lieutenant - patient schedule to be seen, and address medications and simply educated to take all medications as prescribed Educated patient on taking Cymbalta 90 mg daily for depression and anxiety and help motivation, interest and mood 2. Anxiety Prozac 40 mg Cymbalta 90 mg daily in am 3. Insomnia conitnue to have sleep issues schedule by PCP for sleep study hx JOSH and CPAP Sleep hygiene education Trazodone 50 mg 4.Tardive dyskinesia - Austedo XR 18 MG PA denied increase Austedo 18 mg twice daily for tardive dyskinesia management- [facility] - He reports oral movements and intermediate hand shakes - on Austedo, AIMS= 8 12/24/23 AIMS= 5 [...] to the medication Laboratory tests- obtain from PCP/ [facility] 5. 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 Follow-up appointments -refer to therapy . Medication management educated on rx, benefits, side effects andrisk - Reassess medication regimen during follow-up appointments http_s://www. mi.org/About-Me ntal-Illness/Me uxoy-Hfbwph-Aei ditions http_s://psychc [employer]/depr ession/the-cogn itive-symptoms- of-depression#t reatments http__s://www.[facility].nih.gov/[facility]/topics/ment rn-mxnqka-sqtqk ations http__s://www.[facility].org/About-M ental-Illness/T reatments/Menta m-Epevtf-Uolurd tions educated on all medications, benefits, side effects [...] effects including loss of libido, increased suicidal thoughts/behavi ors in children and young adults, and serotonin [...] and interactions with prescribed medications.. - 01/24/2024 Generalized anxiety disorder (ICD-10 - F41.1) [...] mg twice daily for tardive dyskinesia management- [facility] - He reports increase oral movements [...] - Reassess medication regimen during follow-up appointments http_s://www.na mi.org/About-Me ntal-Illness/Me npnj-Uurmez-Smr ditions http_s://psychc entral.com/depr ession/the-cogn itive-symptoms- of-depression#t reatments http__s://www.[facility].gov/hea [facility]/topics/ment sc-kmliai-slecg ations http__s://www.[facility].org/About-M ental-Illness/T reatments/Menta v-Brudxo-Pyrqrp tions educated on all medications, benefits, side effects [...] effects including loss of libido, increased suicidal thoughts/behavi ors in children and young adults, and serotonin [...] daily in am for tardive dyskinesia management- [facility] - He reports increase oral movements [...] - Reassess medication regimen during follow-up appointments http_s://www.na mi.org/About-Me ntal-Illness/Me uoid-Xtpoqj-Qvu ditions http_s://psychc [employer]/depr ession/the-cogn itive-symptoms- of-depression#t reatments http__s://www.[facility].nih.gov/a [facility]/topics/ment wh-bwcctf-pkpar ations http__s://www.[facility].org/About-M ental-Illness/T reatments/Menta e-Twjhlh-Wyitvx tions educated on all medications, benefits, side effects [...] effects including loss of libido, increased suicidal thoughts/behavi ors in children and young adults, and serotonin [...] Post-traumatic stress disorder, chronic (ICD-10 - F43.12) 12/24/2023 Post-traumatic stress disorder, chronic (ICD-10 - F43.12) 1.Depresson Rexulti 1 mg daily 2. Anxiety Prozac 40 mg Cymbalta 90 mg daily in am 3. Insomnia Trazodone 50 mg 4.Tardive dyskinesia - Increase Austedo XR 18 MG daily in am for tardive dyskinesia management- [facility] - He reports increase oral movements [...] - Reassess medication regimen during follow-up appointments http_s://www.[facility].org/About-Me ntal-Illness/Me syfd-Zostqh-Ysh ditions http_s://psychc entrGetMeMedia.com/depr ession/the-cogn itive-symptoms- of-depression#t reatments http__s://www.[facility].gov/[facility]/topics/ment to-gelnkj-qmtej ations http__s://www.[facility].org/About-M ental-Illness/T reatments/Menta o-Bquhql-Bzgtfi tions educated on all medications, benefits, side effects [...] effects including loss of libido, increased suicidal thoughts/behavi ors in children and young adults, and serotonin [...] mg twice daily for tardive dyskinesia management- [facility] - He reports increase oral movements [...] - Reassess medication regimen during follow-up appointments http_s://www.na mi.org/About-Me ntal-Illness/Me qbgi-Bsoisz-Cae ditions http_s://psychc entral.com/depr ession/the-cogn itive-symptoms- of-depression#t reatments http__s://www.n [facility].nih.gov/[facility]/topics/ment wr-oxrzvu-syhra ations http__s://www.[facility].org/About-M ental-Illness/T reatments/Menta y-Iixlau-Ztbups tions educated on all medications, benefits, side effects [...] effects including loss of libido, increased suicidal thoughts/behavi ors in children and young adults, and serotonin [...] neurotoxicity and interactions with prescribed medications.. - 09/19/2024 Dietary counseling and surveillance (ICD-10 - Z71.3) 1.Depresson decrease Rexulti 1 mg daily- having increase TD symptoms Having increase depresison, low motivation, interest and insomnia-will schedule therapy SUDEEP monitor DM and BS, monitor B/P see PCP and police patrol lieutenant - patient schedule to be seen, and address medications and simply educated to take all medications as prescribed Educated patient on taking Cymbalta 90 mg daily for depression and anxiety and help motivation, interest and mood 2. Anxiety Prozac 40 mg Cymbalta 90 mg daily in am 3. Insomnia conitnue to have sleep issues schedule by PCP for sleep study hx JOSH and CPAP Sleep hygiene education Trazodone 50 mg 4.Tardive dyskinesia - Austedo XR 18 MG PA denied increase Austedo 18 mg twice daily for tardive dyskinesia management- [facility] - He reports oral movements and intermediate hand shakes - on Austedo, AIMS= 8 12/24/23 AIMS= 5 [...] to the medication Laboratory tests- obtain from PCP/ [facility] 5. 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 Follow-up appointments -refer to therapy . Medication management educated on rx, benefits, side effects andrisk - Reassess medication regimen during follow-up appointments http_s://www.[facility].org/About-Me ntal-Illness/Me ttxs-Iuxfmd-Fzb ditions http_s://[employer]Paktor/depr ession/the-cogn itive-symptoms- of-depression#t reatments http__s://www.[facility].nih.gov/a [facility]/topics/ment jl-esnlcn-fpvjz ations http__s://www.[facility].org/About-M ental-Illness/T reatments/Menta n-Ubyiuh-Uywgeo tions educated on all medications, benefits, side effects [...] effects including loss of libido, increased suicidal thoughts/behavi ors in children and young adults, and serotonin [...] neurotoxicity and interactions with prescribed medications.. - 07/27/2024 Benign essential HTN (ICD-10 - I10) 1.Depresson Increase Rexulti 2 mg daily Having increase depresison, low motivation, interest and insomnia monitor DM and BS, monitor B/P 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 Anxiety Prozac 40 mg Cymbalta 90 mg daily in am 3. Insomnia conitnue to have sleep issues schedule by PCP for sleep study hx JOSH and CPAP Sleep hygiene education Trazodone 50 mg 4.Tardive dyskinesia - Austedo XR 18 MG PA denied Austedo 12 mg twice daily for tardive dyskinesia management- [facility] - He reports oral movements and intermediate hand shakes - on Austedo, AIMS= 8 12/24/23 AIMS= 5 [...] to the medication Laboratory tests- obtain from PCP/ [facility] 5. 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 Follow-up appointments -refer to therapy . Medication management educated on rx, benefits, side effects andrisk - Reassess medication regimen during follow-up appointments http_s://www.na mi.org/About-Me ntal-Illness/Me iocs-Xovwmd-Lmb ditions http_s://psychc entral.com/depr ession/the-cogn itive-symptoms- of-depression#t reatments http__s://www.n [facility].gov/hepedro [facility]/topics/ment ee-gqwlip-ejxfs ations http__s://www.n [facility].org/About-M ental-Illness/T reatments/Menta x-Lnuzrj-Lydxrl tions educated on all medications, benefits, side effects [...] effects including loss of libido, increased suicidal thoughts/behavi ors in children and young adults, and serotonin [...] mg twice daily for tardive dyskinesia management- [facility] - He reports increase oral movements [...] - Reassess medication regimen during follow-up appointments http_s://www. mi.org/About-Me ntal-Illness/Me fzsc-Ikivzh-Ymf ditions http_s://psychc entrGetMeMedia.com/depr ession/the-cogn itive-symptoms- of-depression#t reatments http__s://www.[facility].nih.gov/[facility]/topics/ment wr-irfoer-ejbqs ations http__s://www.[facility].org/About-M ental-Illness/T reatments/Menta u-Rdhsdq-Jbbnkz tions educated on all medications, benefits, side effects [...] effects including loss of libido, increased suicidal thoughts/behavi ors in children and young adults, and serotonin [...] mg twice daily for tardive dyskinesia management- [facility] - He reports increase oral movements [...] - Reassess medication regimen during follow-up appointments http_s://www.na mi.org/About-Me ntal-Illness/Me qlmc-Pvvlwx-Zer ditions http_s://psychc entral.com/depr ession/the-cogn itive-symptoms- of-depression#t reatments http__s://www.n [facility].gov/a [facility]/topics/ment ny-voqxqb-zbbzv ations http__s://www.n [facility].org/About-M ental-Illness/T reatments/Menta g-Fcymmg-Mauspk tions educated on all medications, benefits, side effects [...] effects including loss of libido, increased suicidal thoughts/behavi ors in children and young adults, and serotonin [...] neurotoxicity and interactions with prescribed medications.. 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 Anxiety Prozac 40 mg Cymbalta 90 mg daily in am 3. Insomnia conitnue to have sleep issues schedule by PCP for sleep study hx JOSH and CPAP Sleep hygiene education Trazodone 50 mg 4.Tardive dyskinesia - Austedo XR 18 MG PA denied Austedo 12 mg twice daily for tardive dyskinesia management- [facility] - He reports oral movements and intermediate hand shakes - on Austedo, AIMS= 8 12/24/23 AIMS= 5 [...] to the medication Laboratory tests- obtain from PCP/ [facility] 5. 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 Follow-up appointments -refer to therapy . Medication management educated on rx, benefits, side effects andrisk - Reassess medication regimen during follow-up appointments http_s://www.na mi.org/About-Me ntal-Illness/Me stpm-Vjpztq-Fmu ditions http_s://[employer]Pak[employer]/depr ession/the-cogn itive-symptoms- of-depression#t reatments http__s://www.n [facility].nih.gov/hea [facility]/topics/ment cs-fivmhy-kwvqi ations http__s://www.[facility].org/About-M ental-Illness/T reatments/Menta i-Zftxxk-Kwsoci tions educated on all medications, benefits, side effects [...] effects including loss of libido, increased suicidal thoughts/behavi ors in children and young adults, and serotonin [...] neurotoxicity and interactions with prescribed medications.. 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 Anxiety Prozac 40 mg Cymbalta 90 mg daily in am 3. Insomnia conitnue to have sleep issues schedule by PCP for sleep study hx JOSH and CPAP Sleep hygiene education Trazodone 50 mg 4.Tardive dyskinesia - Austedo XR 18 MG PA denied increase Austedo 18 mg twice daily for tardive dyskinesia management- [facility] - He reports oral movements and intermediate hand shakes - on Austedo, AIMS= 8 12/24/23 AIMS= 5 [...] to the medication Laboratory tests- obtain from PCP/ [facility] 5. 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 Follow-up appointments -refer to therapy . Medication management educated on rx, benefits, side effects andrisk - Reassess medication regimen during follow-up appointments http_s://www.na mi.org/About-Me ntal-Illness/Me egrc-Hhkwsw-Eja ditions http_s://psychc [employer]/depr ession/the-cogn itive-symptoms- of-depression#t reatments http__s://www.[facility].gov/[facility]/topics/ment fy-phhxms-mrajs ations http__s://www.[facility].org/About-M ental-Illness/T reatments/Menta c-Qvrvgr-Woesfp tions educated on all medications, benefits, side effects [...] effects including loss of libido, increased suicidal thoughts/behavi ors in children and young adults, and serotonin [...] mg twice daily for tardive dyskinesia management- [facility] - He reports increase oral movements [...] - Reassess medication regimen during follow-up appointments http_s://www. mi.org/About-Me ntal-Illness/Me gzss-Jveotp-Tvy ditions http_s://psychc entrGetMeMedia.com/depr ession/the-cogn itive-symptoms- of-depression#t reatments http__s://www.[facility].nih.gov/hea [facility]/topics/ment tv-gllqth-fspnb ations http__s://www.[facility].org/About-M ental-Illness/T reatments/Menta t-Urknmi-Wvcril tions educated on all medications, benefits, side effects [...] effects including loss of libido, increased suicidal thoughts/behavi ors in children and young adults, and serotonin [...] daily in am for tardive dyskinesia management- [facility] - He reports increase oral movements [...] - Reassess medication regimen during follow-up appointments http_s://www.na mi.org/About-Me ntal-Illness/Me tujp-Ytpluf-Hgn ditions http_s://psychc entral.com/depr ession/the-cogn itive-symptoms- of-depression#t reatments http__s://www.n [facility].nih.gov/hea [facility]/topics/ment rw-ozclls-oebcz ations http__s://www.n ami.org/About-M ental-Illness/T reatments/Menta p-Aogcrm-Bzrqyb tions educated on all medications, benefits, side effects [...] effects including loss of libido, increased suicidal thoughts/behavi ors in children and young adults, and serotonin [...] neurotoxicity and interactions with prescribed medications.. 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 Anxiety Prozac 40 mg Cymbalta 90 mg daily in am 3. Insomnia conitnue to have sleep issues schedule by PCP for sleep study hx JOSH and CPAP Sleep hygiene education Trazodone 50 mg 4.Tardive dyskinesia - Austedo XR 18 MG PA denied increase Austedo 18 mg twice daily for tardive dyskinesia management- [facility] - He reports oral movements and intermediate hand shakes - on Austedo, AIMS= 8 12/24/23 AIMS= 5 [...] to the medication Laboratory tests- obtain from PCP/ [facility] 5. 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 Follow-up appointments -refer to therapy . Medication management educated on rx, benefits, side effects andrisk - Reassess medication regimen during follow-up appointments http_s://www.na mi.org/About-Me ntal-Illness/Me gput-Ncdvis-Uqd ditions http_s://psychc [employer].com/depr ession/the-cogn itive-symptoms- of-depression#t reatments http__s://www.[facility].nih.gov/[facility]/topics/ment od-cfrcad-rdnqp ations http__s://www.[facility].org/About-M ental-Illness/T reatments/Menta j-Faqvep-Xwirjm tions educated on all medications, benefits, side effects [...] effects including loss of libido, increased suicidal thoughts/behavi ors in children and young adults, and serotonin [...] neurotoxicity and interactions with prescribed medications.. - 07/27/2024 Generalized anxiety disorder (ICD-10 - F41.1) Generalized Anxiety Disorder: Care Instructions material was published, Learning About Generalized Anxiety Disorder material was published, Learning About Anxiety Disorders material was published 1.Depresson Increase Rexulti 2 mg daily Having increase depresison, low motivation, interest and insomnia monitor DM and BS, monitor B/P 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 Anxiety Prozac 40 mg Cymbalta 90 mg daily in am 3. Insomnia conitnue to have sleep issues schedule by PCP for sleep study hx JOSH and CPAP Sleep hygiene education Trazodone 50 mg 4.Tardive dyskinesia - Austedo XR 18 MG PA denied Austedo 12 mg twice daily for tardive dyskinesia management- [facility] - He reports oral movements and intermediate hand shakes - on Austedo, AIMS= 8 12/24/23 AIMS= 5 [...] to the medication Laboratory tests- obtain from PCP/ [facility] 5. 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 Follow-up appointments -refer to therapy . Medication management educated on rx, benefits, side effects andrisk - Reassess medication regimen during follow-up appointments http_s://www.na mi.org/About-Me ntal-Illness/Me tyaz-Pkzbkh-Xew ditions http_s://[employer].Paktor/depr ession/the-cogn itive-symptoms- of-depression#t reatments http__s://www.n [facility].nih.gov/a [facility]/topics/ment rp-neurnx-bxjok ations http__s://www.[facility].org/About-M ental-Illness/T reatments/Menta j-Apapvy-Ravfbs tions educated on all medications, benefits, side effects [...] effects including loss of libido, increased suicidal thoughts/behavi ors in children and young adults, and serotonin [...] neurotoxicity and interactions with prescribed medications.. - 07/27/2024 Post-traumatic stress disorder, chronic (ICD-10 - F43.12) 1.Depresson Increase Rexulti 2 mg daily Having increase depresison, low motivation, interest and insomnia monitor DM and BS, monitor B/P 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 Anxiety Prozac 40 mg Cymbalta 90 mg daily in am 3. Insomnia conitnue to have sleep issues schedule by PCP for sleep study hx JOSH and CPAP Sleep hygiene education Trazodone 50 mg 4.Tardive dyskinesia - Austedo XR 18 MG PA denied Austedo 12 mg twice daily for tardive dyskinesia management- [facility] - He reports oral movements and intermediate hand shakes - on Austedo, AIMS= 8 12/24/23 AIMS= 5 [...] to the medication Laboratory tests- obtain from PCP/ [facility] 5. 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 Follow-up appointments -refer to therapy . Medication management educated on rx, benefits, side effects andrisk - Reassess medication regimen during follow-up appointments http_s://www.na mi.org/About-Me ntal-Illness/Me txwc-Hwtnbj-Dmg ditions http_s://psychc entral.com/depr ession/the-cogn itive-symptoms- of-depression#t reatments http__s://www.n [facility].nih.gov/hepedro [facility]/topics/ment cq-xbivdl-plpmq ations http__s://www.n [facility].org/About-M ental-Illness/T reatments/Menta m-Emnwrr-Qwidjl tions educated on all medications, benefits, side effects [...] effects including loss of libido, increased suicidal thoughts/behavi ors in children and young adults, and serotonin [...] neurotoxicity and interactions with prescribed medications.. 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 Anxiety Prozac 40 mg Cymbalta 90 mg daily in am 3. Insomnia conitnue to have sleep issues schedule by PCP for sleep study hx JOSH and CPAP Sleep hygiene education Trazodone 50 mg 4.Tardive dyskinesia - Austedo XR 18 MG PA denied increase Austedo 18 mg twice daily for tardive dyskinesia management- [facility] - He reports oral movements and intermediate hand shakes - on Austedo, AIMS= 8 12/24/23 AIMS= 5 [...] to the medication Laboratory tests- obtain from PCP/ [facility] 5. 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 Follow-up appointments -refer to therapy . Medication management educated on rx, benefits, side effects andrisk - Reassess medication regimen during follow-up appointments http_s://www.[facility].org/About-Me ntal-Illness/Me cmzm-Hshuca-Sbe ditions http_s://[employer]/depr ession/the-cogn itive-symptoms- of-depression#t reatments http__s://www.[facility].nih.gov/[facility]/topics/ment nn-ifhaya-iusrd ations http__s://www.[facility].org/About-M ental-Illness/T reatments/Menta h-Xwvisk-Ejfaty tions educated on all medications, benefits, side effects [...] effects including loss of libido, increased suicidal thoughts/behavi ors in children and young adults, and serotonin [...] neurotoxicity and interactions with prescribed medications.. - 09/19/2024 Post-traumatic stress disorder, chronic (ICD-10 - F43.12) 1.Depresson decrease Rexulti 1 mg daily- having increase TD symptoms Having increase depresison, low motivation, interest and insomnia-will schedule therapy SUDEEP monitor DM and BS, monitor B/P see PCP and police patrol lieutenant - patient schedule to be seen, and address medications and simply educated to take all medications as prescribed Educated patient on taking Cymbalta 90 mg daily for depression and anxiety and help motivation, interest and mood 2. Anxiety Prozac 40 mg Cymbalta 90 mg daily in am 3. Insomnia conitnue to have sleep issues schedule by PCP for sleep study hx JOSH and CPAP Sleep hygiene education Trazodone 50 mg 4.Tardive dyskinesia - Austedo XR 18 MG PA denied increase Austedo 18 mg twice daily for tardive dyskinesia management- [facility] - He reports oral movements and intermediate hand shakes - on Austedo, AIMS= 8 12/24/23 AIMS= 5 [...] to the medication Laboratory tests- obtain from PCP/ [facility] 5. 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 Follow-up appointments -refer to therapy . Medication management educated on rx, benefits, side effects andrisk - Reassess medication regimen during follow-up appointments http_s://www.na mi.org/About-Me ntal-Illness/Me ipkd-Asbzvl-Cvk ditions http_s://psychc entral.com/depr ession/the-cogn itive-symptoms- of-depression#t reatments http__s://www.n [facility].nih.gov/hepedro [facility]/topics/ment ey-ndieme-ogvxe ations http__s://www.n ami.org/About-M ental-Illness/T reatments/Menta v-Jfhffl-Wykhtw tions educated on all medications, benefits, side effects [...] effects including loss of libido, increased suicidal thoughts/behavi ors in children and young adults, and serotonin [...] neurotoxicity and interactions with prescribed medications.. - 07/27/2024 Primary insomnia (ICD-10 - F51.01) Insomnia: Care Instructions material was published, Learning About Sleeping Well material was published 1.Depresson Increase Rexulti 2 mg daily Having increase depresison, low motivation, interest and insomnia monitor DM and BS, monitor B/P 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 Anxiety Prozac 40 mg Cymbalta 90 mg daily in am 3. Insomnia conitnue to have sleep issues schedule by PCP for sleep study hx JOSH and CPAP Sleep hygiene education Trazodone 50 mg 4.Tardive dyskinesia - Austedo XR 18 MG PA denied Austedo 12 mg twice daily for tardive dyskinesia management- [facility] - He reports oral movements and intermediate hand shakes - on Austedo, AIMS= 8 12/24/23 AIMS= 5 [...] to the medication Laboratory tests- obtain from PCP/ [facility] 5. 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 Follow-up appointments -refer to therapy . Medication management educated on rx, benefits, side effects andrisk - Reassess medication regimen during follow-up appointments http_s://www.na mi.org/About-Me ntal-Illness/Me ykrp-Yyffdy-Xjb ditions http_s://[employer].Paktor/depr ession/the-cogn itive-symptoms- of-depression#t reatments http__s://www.n [facility].nih.gov/hepedro [facility]/topics/ment eu-cumlhz-qkvnj ations http__s://www.[facility].org/About-M ental-Illness/T reatments/Menta x-Rjnhln-Fztbzf tions educated on all medications, benefits, side effects [...] effects including loss of libido, increased suicidal thoughts/behavi ors in children and young adults, and serotonin [...] neurotoxicity and interactions with prescribed medications.. - 09/19/2024 Primary insomnia (ICD-10 - F51.01) Insomnia: Care Instructions material was published, Learning About Sleeping Well material was published 1.Depresson decrease Rexulti 1 mg daily- having increase TD symptoms Having increase depresison, low motivation, interest and insomnia-will schedule therapy SUDEEP monitor DM and BS, monitor B/P see PCP and police patrol lieutenant - patient schedule to be seen, and address medications and simply educated to take all medications as prescribed Educated patient on taking Cymbalta 90 mg daily for depression and anxiety and help motivation, interest and mood 2. Anxiety Prozac 40 mg Cymbalta 90 mg daily in am 3. Insomnia conitnue to have sleep issues schedule by PCP for sleep study hx JOSH and CPAP Sleep hygiene education Trazodone 50 mg 4.Tardive dyskinesia - Austedo XR 18 MG PA denied increase Austedo 18 mg twice daily for tardive dyskinesia management- [facility] - He reports oral movements and intermediate hand shakes - on Austedo, AIMS= 8 12/24/23 AIMS= 5 [...] to the medication Laboratory tests- obtain from PCP/ [facility] 5. 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 Follow-up appointments -refer to therapy . Medication management educated on rx, benefits, side effects andrisk - Reassess medication regimen during follow-up appointments http_s://www.na mi.org/About-Me ntal-Illness/Me jbcx-Uhpoug-Drg ditions http_s://psychc [employer].Paktor/depr ession/the-cogn itive-symptoms- of-depression#t reatments http__s://www.[facility].gov/[facility]/topics/ment qe-ddgrwh-pwpvd ations http__s://www.[facility].org/About-M ental-Illness/T reatments/Menta b-Helxxs-Qoheqc tions educated on all medications, benefits, side effects [...] effects including loss of libido, increased suicidal thoughts/behavi ors in children and young adults, and serotonin [...] and interactions with prescribed medications.. - 12/15/2023 Other Client has bee n falling more frequently. He is to have [...] could help (Ex: [facility] in [place]).. 01/24/2024 Other Deutetrabenazin e Oral Tablet (DEUTETRABENAZINE [...] mg twice daily for tardive dyskinesia management- [facility] - He reports increase oral movements [...] - Reassess medication regimen during follow-up appointments http_s://www.na mi.org/About-Me ntal-Illness/Me srnh-Dfzkma-Jqa ditions http_s://psychc entral.com/depr ession/the-cogn itive-symptoms- of-depression#t reatments http__s://www.n [facility].nih.gov/hea lt/topics/ment oi-bzkxoo-lzgms ations http__s://www.n ami.org/About-M ental-Illness/T reatments/Menta c-Slchog-Kxbqjz tions educated on all medications, benefits, side effects [...] effects including loss of libido, increased suicidal thoughts/behavi ors in children and young adults, and serotonin [...] might be able to help such as [facility]. 02/17/2024 Other Cleint reports he has a number of things he has not been taking care of (paper work, laundry). Therapist actively listened to client and asked questions for clarification. Therapist assisted client by utilizing a cognitive behavioral intervention to help client explore setting up a routine,creatin g healthier self talk, and also provided resources to client related to transportation. PHQ=16 moderately severe DIANA=13 moderate 09/19/2024 Other Gait, Strength, and Balance Training ExercisesThis handout provides simple exercises to improve your gait, strength, and balance. Theseexercises can help prevent falls, improve mobility, and enhance overall function. Perform them in asafe space, use support if needed, and stop if you feel pain or dizziness.1. Gait Training Exercises- Walk in a straight line for 10-20 feet, heel-to-toe.- Step over small objects (cones or rolled towels).- Practice walking sideways and backwards.- Use a treadmill if available, under supervision.2. Balance Exercises- Stand on one foot for 10-30 seconds; switch legs.- Walk heel-to-toe in a straight line.- Use a balance board or cushion to challenge stability.- Practice rising from a chair without using your hands.3. Strength Training Exercises- Sxh-hu-advcd: rise from a chair repeatedly.- Wall push-ups: stand at arm's length from a wall and push.- Step-ups on a low step or stairs.- Leg lifts while seated or lying down.Consult your primary care provider (PCP) before starting these exercises, especially if you havemedical conditions or difficulty performing them 1.Depresson decrease Rexulti 1 mg daily- having increase TD symptoms Having increase depresison, low motivation, interest and insomnia-will schedule therapy SUDEEP monitor DM and BS, monitor B/P see PCP and police patrol lieutenant - patient schedule to be seen, and address medications and simply educated to take all medications as prescribed Educated patient on taking Cymbalta 90 mg daily for depression and anxiety and help motivation, interest and mood 2. Anxiety Prozac 40 mg Cymbalta 90 mg daily in am 3. Insomnia conitnue to have sleep issues schedule by PCP for sleep study hx JOSH and CPAP Sleep hygiene education Trazodone 50 mg 4.Tardive dyskinesia - Austedo XR 18 MG PA denied increase Austedo 18 mg twice daily for tardive dyskinesia management- [facility] - He reports oral movements and intermediate hand shakes - on Austedo, AIMS= 8 12/24/23 AIMS= 5 [...] to the medication Laboratory tests- obtain from PCP/ [facility] 5. 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 Follow-up appointments -refer to therapy . Medication management educated on rx, benefits, side effects andrisk - Reassess medication regimen during follow-up appointments http_s://www. mi.org/About-Me ntal-Illness/Me mosn-Qlbtmv-Api ditions http_s://psychc [employer].com/depr ession/the-cogn itive-symptoms- of-depression#t reatments http__s://www.[facility].gov/[facility]/topics/ment vl-jamefz-stkoe ations http__s://www.[facility].org/About-M ental-Illness/T reatments/Menta m-Mpsuyi-Vmgtmc tions educated on all medications, benefits, side effects [...] effects including loss of libido, increased suicidal thoughts/behavi ors in children and young adults, and serotonin [...] neurotoxicity and interactions with prescribed medications.. - 09/20/2024 Other Client is under a doctor's care for falls Client reports he continues to struggle with his mental health. The client's PMHNP suggested he start therapy again. He now has transportation to be able to make it to regular therapy appointments. He states he struggles with motivation. Therapist actively listened to client and utilzed a cognitive behavioral intervention to help client explore strategies to improve motivation (using a timer). Plan Of Treatment No Information Insurance Providers Payer Name Payer Address Payer Phone Subscriber Number Group Number Insured Name Patient Relationship to Insured Coverage Start Date Coverage End Date [employer] Medicare Replacement/ Advantage - Ppo [address] [address] [place] [address] [id number] JACQUELIN CONRAD Self - patient is the insured [place] [address] [address] [place] [address] [id number] JACQUELIN CONRAD Self - patient is the insured Medical (General) History Medical History History ICD Code Problems: Chronic post-traumatic stress disorder Generalized anxiety disorder Intermittent explosive disorder Mild recurrent major depression Primary insomnia Severe recurrent major depression , Surgical History Surgery Date(Month/Year) Heart surgery 2010 Cardiac stent 2009 & 2018 Cervical laminectomy (371931097) 1998 & 2000 Repair of inguinal hernia ([id number]) 201 2 & 2013 Cardiac stent 06/16/2009 Heart surgery 12/16/2009 Removal of gallbladder (33839) 9
[2024-12-14 20:59] LABS: Thyroid Stimulating Hormone > 100.000 uIU/mL (0.465-4.680)
[2024-12-14 21:08] LABS: Vitamin B12 859.0 pg/mL (239-931)
== END 2024-12-14 08:29 | disposition home or self-care (01) ==
PROVIDERS: PCP Nurse Practitioner Adult Health; Visit Provider Nurse Practitioner Adult Health
DX: E03.9 Hypothyroidism, unspecified (principal); R29.898 Other symptoms and signs involving the musculoskeletal system
CPT/HCPCS: 36415; 82607; 84443

== ENCOUNTER 2024-12-15 18:26 | Inpatient (IN) | payer MEDICARE, MEDICAID, SELFPAY ==
--- NOTE | ~2024-12-15 | XR_ITS ---
EXAMINATION: XR retrograde pyelo w/stent RT DATE: 12/16/2024 12:35 INDICATION: Right internal ureteral stent placement TECHNIQUE: Fluoroscopic images from a right internal ureteral stent placement are submitted for review. 15 seconds of fluoroscopy time. FINDINGS: There is a right double-J internal ureteral stent projecting in expected position, with proximal [place] loop at the level of the renal pelvis and distal loop in the pelvis within the bladder lumen. There is a stone adjacent to the stent near the expected location of the UPJ. IMPRESSION: 1. Right internal ureteral stent placement. Please refer to real-time procedural findings for details. Reviewed, dictated and finalized at location O. IMPRESSION: 1. Right internal ureteral stent placement. Please refer to real-time procedu ral findings for details.
--- NOTE | ~2024-12-15 | CT_ITS ---
CT abdomen pelvis wo con INDICATION:abdominal pain . COMPARISON: None. TECHNIQUE: Axial 2.5 mm images of the abdomen were obtained without IV or oral contrast. Diagnostic sensitivity is limited due to lack of IV contrast. FINDINGS: The lung bases are clear. The liver parenchyma is unremarkable. No intrahepatic mass or ductal dilatation is evident. The gallbladder is unremarkable. The pancreas and spleen are normal in appearance. The adrenal glands are symmetric in size. The kidneys are unremarkable. Mild right hydronephrosis and hydroureter secondary to a 9.6 mm stone in the proximal ureter. Nonobstructive intrarenal stones are present bilaterally measuring up to 5 mm. Exophytic left renal cyst measures 11 mm. Right renal cyst measures 16mm. There is no hydronephrosis. Evaluation of the stomach and bowel loops are limited due to lack of oral contrast. There is no bowel obstruction or acute appendicitis. There is colonic diverticulosis without evidence of acute diverticulitis. The bladder and rectum are normal. No free intraperitoneal fluid or air is evident. There is no significant retroperitoneal lymphadenopathy. The aorta, visceral vessels and renal arteries demonstrate normal caliber. The lower thoracic and lumbar vertebrae are in normal alignment. IMPRESSION: Right hydronephrosis secondary to a 9.6 mm stone in the proximal right ureter. All CT scans at this facility are performed using low dose modulation techniques as appropriate to perform exam including the following: automated exposure control; use of iterative reconstruction technique; adjustment of the mA and/or kV according to patient size (this includes techniques or standardized protocols for targeted exams where dose is matched to indication/reason for exam). Reviewed, dictated and finalized at location S. IMPRESSION: Right hydronephrosis secondary to a 9.6 mm stone in the proximal right ureter. All CT scans at this facility are performed using low dose modulation techniqu es as appropriate to perform exam including the following: automated exposure c ontrol; use of iterative reconstruction technique; adjustment of the mA and/or kV according to patient size (this includes techniques or standardized protocol s for targeted exams where dose is matched to indication/reason for exam).
[2024-12-15 18:29] VITALS: BP 174/110; PULSE 100; RESP 16; TEMP 36.6; O2SAT 99
--- OUTSIDE RECORDS SUMMARY | 2024-12-15 18:29 | XMS_ITS | Patient Health Record ---
Author Organization [facility] [employer] Address [address] [place] [address] Care Team Providers Care Moth Proofer Name Role Phone Michelle Drake APRN Primary Care Provider Bhavya Sin Unavailable [phone] Bryant Bekah Unavailable [phone] Allergies No Known Allergies Reason For Referral [...] x 5/16 NEEDLE, DISPOSABLE MISCELLANEOUS *Reorder from NCR [employer] for eRx and Interaction Alerts* 06/21/2023 Active [...] Orally Once a day *Pick strength-form from NCR [employer] for eRX* 06/21/2023 Active Levothyroxine Sodium 25 [...] Severe recurrent major depression without psychotic features (04245056) Major depressive disorder, recurrent severe without psychotic features (F33.2) 01/08/20 23 Active confirmed Problem Generalized anxiety disorder (32962356) Generalized anxiety disorder (F41.1) 06/21/19 24 Active confirmed Problem Posttraumatic stress disorder (44964290) Post-traumatic stress disorder, chronic (F43.12) 06/21/19 24 Active confirmed Problem Primary insomnia (1724555) Primary insomnia (F51.01) 06/21/19 24 Active confirmed Problem Screening for cardiovascular system disease (079010703) Encounter for screening for cardiovascular disorders (Z13.6) Active confirmed Problem Dietary management surveillance (163961189) Dietary counseling and surveillance (Z71.3) Active confirmed Problem Depression Screening (895769725) Encounter for screening for depression (Z13.31) Active confirmed Problem Long-term current use of drug therapy (030471172) 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 drug 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 (Z79.899) Active confirmed Problem 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 Problem Essential hypertension (95320449) Benign essential HTN (I10) Active confirmed Vital Signs Heart Rate 82 /min 09/19/2024 Respiratory Rate 16 /min 09/19/2024 Blood pressure diastolic 74 mm Hg 09/19/2024 Height-cm 177.80 cm 09/19/2024 Weight-kg 107.05 kg 09/19/2024 Height 70.00 in 09/19/2024 Blood pressure systolic 116 mm Hg 09/19/2024 Weight 236 lbs 09/19/2024 BMI 33.86 kg/m2 09/19/2024 Encounters Encounter Location Date Provider Diagnosis [facility] [employer] [place] [address] [address] [facility] [address] [address] 12/24/2023 Bhavya Lopez 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 ; Major depressive disorder, recurrent severe without psychotic features F33.2 ; Generalized anxiety disorder F41.1 ; Post-traumatic stress disorder, chronic F43.12 and Primary insomnia F51.01 [facility] [employer] [place] [address] [address] [facility] [address] [address] 01/24/2024 Bhavya Thersarika 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 ; Major depressive disorder, recurrent severe without psychotic features F33.2 ; Generalized anxiety disorder F41.1 ; Post-traumatic stress disorder, chronic F43.12 and Primary insomnia F51.01 [facility] [employer] [place] [address] [facility] [address] [address] 02/02/2024 Bekah Hurtado Major depressive disorder, recurrent severe without psychotic features F33.2 ; Generalized anxiety disorder F41.1 and Post-traumatic stress disorder, chronic F43.12 [facility] [employer] [place] [address] [facility] [address] [address] 02/17/2024 Bekah Hurtado Major depressive disorder, recurrent severe without psychotic features F33.2 ; Generalized anxiety disorder F41.1 and Post-traumatic stress disorder, chronic F43.12 [place] [address] [address] 04/25/2024 Bhavya Lopez 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 ; Major depressive disorder, recurrent severe without psychotic features F33.2 ; Generalized anxiety disorder F41.1 ; Post-traumatic stress disorder, chronic F43.12 and Primary insomnia F51.01 [facility], [address] [address] 07/21/2024 Bhavya Lopez [facility], [address] [address] 07/27/2024 Bhavya Lopez Encounter for screen ing for depression Z13.31 ; Major depressive disorder, recurrent severe without psychotic features F33.2 ; Encounter for screening for cardiovascular disorders Z13.6 ; Dietary counseling and surveillance Z71.3 ; Benign essential HTN I10 ; 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 ; Generalized anxiety disorder F41.1 ; Post-traumatic stress disorder, chronic F43.12 and Primary insomnia F51.[address] [address] 08/17/2024 Bhavya Lopez [facility], [address] [address] 09/19/2024 Bhavya Thersarika Encounter for screen ing for depression Z13.31 ; Major depressive disorder, recurrent severe without psychotic features F33.2 ; Encounter for screening for cardiovascular disorders Z13.6 ; Dietary counseling and surveillance Z71.3 ; Benign essential HTN I10 ; 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 ; Generalized anxiety disorder F41.1 ; Post-traumatic stress disorder, chronic F43.12 and Primary insomnia F51.01 [place] [address] [facility] [address] [address] 09/20/2024 Bekah Hurtado Major depressive disorder, recurrent severe without psychotic features F33.2 ; Generalized anxiety disorder F41.1 and Post-traumatic stress disorder, chronic F43.12 [facility], [place] [address] [facility] [address] [address] 11/15/2024 Bekah Bryant [facility], [facility] [address] [facility] [address] [place] [address] 12/12/[address] [facility] [address] [address] 12/13/[address] [facility] [address] [address] 12/28/[address] 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 Provider can order medication once approval received. 02/08/2024 On assisted drug therapy (ICD-10 - Z79.899) Electronic Prior Authorization was requested for Austedo 6 MG Tablet. Provider can order medication once approval received. 05/16/2024 Medication-induc ed movement disorder (ICD-10 - G25.70) Patient been taking Austedo 12 mg BID Austedo XR 18 mg pa approved per pharmacy sent new script for Austedo XR 24 mg daily to [facility] for PA approval 05/16/24 06/14/2024 Medication-induc ed [...] and BS, monitor B/P see PCP and skein spooler - patient will schedule to be seen, [...] mg twice daily for tardive dyskinesia management- [facility] - He reports oral movements and [...] the medication Laboratory tests- [facility]. HTN and DM Follow up PCP and skein spooler . Follow-up appointments -refer to therapy . Medication management educated on rx, benefits, side effects andrisk - Reassess medication regimen during follow-up appointments http_s://www.na mi.org/About-Me ntal-Illness/Me knen-Xhaauq-Omr ditions http_s://psychc [employer]on [employer].com/depr ession/the-cogn itive-symptoms- of-depression#t reatments http__s://www.n [facility].nih.gov/hea [facility]/topics/ment ck-zsirxd-jwjxe ations http__s://www.[facility].org/About-M ental-Illness/T reatments/Menta n-Cqihyw-Flppfk tions educated on all medications, benefits, side [...] daily in am for tardive dyskinesia management- [facility] - He reports increase oral movements [...] - Reassess medication regimen during follow-up appointments http_s://www.[facility].org/About-Me ntal-Illness/Me ujnt-Iamdcq-Fmy ditions http_s://[employer]/depr ession/the-cogn itive-symptoms- of-depression#t reatments http__s://www.critical [facility] hospital[facility].gov/[facility]/topics/ment pi-rmpikl-yrocc ations http__s://www.[facility].org/About-M ental-Illness/T reatments/Menta w-Dzteut-Fvfgke tions educated on all medications, benefits, side [...] and BS, monitor B/P see PCP and skein spooler - patient will schedule to be seen, [...] mg twice daily for tardive dyskinesia management- [facility] - He reports oral movements and [...] the medication Laboratory tests- obtain [facility] 5. HTN and DM Follow up PCP and skein spooler . Follow-up appointments -refer to therapy . Medication management educated on rx, benefits, side effects andrisk - Reassess medication regimen during follow-up appointments http_s://www.na mi.org/About-Me ntal-Illness/Me wylb-Gfuweq-Egi ditions http_s://psychc entral.com/depr ession/the-cogn itive-symptoms- of-depression#t reatments http__s://www.n [facility].gov/a [facility]/topics/ment la-tvkygx-xenwo ations http__s://www.n [facility].org/About-M ental-Illness/T reatments/Menta t-Itsomk-Vdocrr tions educated on all medications, benefits, side [...] mg twice daily for tardive dyskinesia management- [facility] - He reports increase oral movements [...] regimen during follow-up appointments http_s://www.na mi.org/About-Me ntal-Illness/Me ejej-Jhjhnl-Lih ditions http_s://psychc [employer].com/depr ession/the-cogn itive-symptoms- of-depression#t reatments http__s://www.[facility].nih.gov/a [facility]/topics/ment tz-hptkxp-czvkl ations http__s://www.[facility].org/About-M ental-Illness/T reatments/Menta e-Vntrnr-Qcajiu tions educated on all medications, benefits, side [...] and BS, monitor B/P see PCP and skein spooler - patient schedule to be seen, and [...] mg twice daily for tardive dyskinesia management- [facility] - He reports oral movements and [...] the medication Laboratory tests- obtain [facility] 5. HTN and DM Follow up PCP and skein spooler . Follow-up appointments -refer to therapy . Medication management educated on rx, benefits, side effects andrisk - Reassess medication regimen during follow-up appointments http_s://www.[facility].org/About-Me ntal-Illness/Me tpgd-Hyuivy-Mxv ditions http_s://psychc [employer].com/depr ession/the-cogn itive-symptoms- of-depression#t reatments http__s://www.[facility] hospital.nih.gov/hea [facility]/topics/ment qn-xfrmly-jbyhk ations http__s://www.[facility].org/About-M ental-Illness/T reatments/Menta i-Kmgujf-Zpwpta tions educated on all medications, benefits, side [...] mg twice daily for tardive dyskinesia management- [facility] - He reports increase oral movements [...] - Reassess medication regimen during follow-up appointments http_s://www.[facility].org/About-Me ntal-Illness/Me chyd-Qxawhd-Fjh ditions http_s://psychc [employer].com/depr ession/the-cogn itive-symptoms- of-depression#t reatments http__s://www.critical [facility] hospital[facility].gov/[facility]/topics/ment xr-vqfsgk-dzcag ations http__s://www.[facility].org/About-M ental-Illness/T reatments/Menta z-Ubznvm-Ahiudk tions educated on all medications, benefits, side [...] 02/02/2024 Generalized anxiety disorder (ICD-10 - F41.1) 12/24/2023 Major depressive disorder, recurrent severe without psychotic features (ICD-10 - F33.2) 1.Depresson Rexulti 1 mg daily 2. Anxiety Prozac 40 mg Cymbalta 90 mg daily in am 3. Insomnia Trazodone 50 mg 4.Tardive dyskinesia - Increase Austedo XR 18 MG daily in am for tardive dyskinesia management- [facility] - He reports increase oral movements [...] regimen during follow-up appointments http_s://www.na mi.org/About-Me ntal-Illness/Me ebvr-Rxlmat-Hci ditions http_s://psychc entral.com/depr ession/the-cogn itive-symptoms- of-depression#t reatments http__s://www.n [facility].nih.gov/hea [facility]/topics/ment qh-ewaaxc-rppfy ations http__s://www.n [facility].org/About-M ental-Illness/T reatments/Menta n-Xsahom-Gaptwx tions educated on all medications, benefits, side [...] Coming Back: Care Instructions material was published 1.Lester Valeroi 1 mg daily 2. Anxiety Prozac 40 mg Cymbalta 90 mg daily in am 3. Insomnia Trazodone 50 mg 4.Tardive dyskinesia - Austedo XR 18 MG PA denied Austedo 9 mg twice daily for tardive dyskinesia management- [facility] - He reports increase oral movements [...] - Reassess medication regimen during follow-up appointments http_s://www.[facility].org/About-Me ntal-Illness/Me cjws-Dmowri-Pps ditions http_s://psychc [employer]/depr ession/the-cogn itive-symptoms- of-depression#t reatments http__s://www.critical [facility] hospital[facility].gov/a [facility]/topics/ment ou-itrrfq-yrgqh ations http__s://www.[facility].org/About-M ental-Illness/T reatments/Menta v-Nndjcj-Dxuxap tions educated on all medications, benefits, side [...] and BS, monitor B/P see PCP and skein spooler - patient schedule to be seen, and [...] mg twice daily for tardive dyskinesia management- [facility] - He reports oral movements and [...] the medication Laboratory tests- [facility]. HTN and DM Follow up PCP and skein spooler . Follow-up appointments -refer to therapy . Medication management educated on rx, benefits, side effects andrisk - Reassess medication regimen during follow-up appointments http_s://www.[facility].org/About-Me ntal-Illness/Me ypyp-Uazawj-Mac ditions http_s://psychc [employer].com/depr ession/the-cogn itive-symptoms- of-depression#t reatments http__s://www.critical [facility] hospital.nih.gov/hea [facility]/topics/ment pi-lhyrls-kqmlb ations http__s://www.[facility].org/About-M ental-Illness/T reatments/Menta b-Ilhotr-Gcgttj tions educated on all medications, benefits, side [...] mg twice daily for tardive dyskinesia management- [facility] - He reports increase oral movements [...] regimen during follow-up appointments http_s://www.na mi.org/About-Me ntal-Illness/Me imhu-Omdotd-Igy ditions http_s://psychc entral.com/depr ession/the-cogn itive-symptoms- of-depression#t reatments http__s://www.[facility] hospital.nih.gov/hea [facility]/topics/ment eg-bbiwbq-ekdvd ations http__s://www.[facility].org/About-M ental-Illness/T reatments/Menta t-Izazgj-Ggoqab tions educated on all medications, benefits, side [...] and BS, monitor B/P see PCP and skein spooler - patient will schedule to be seen, [...] mg twice daily for tardive dyskinesia management- [facility] - He reports oral movements and [...] the medication Laboratory tests- obtain [facility]. HTN and DM Follow up PCP and skein spooler . Follow-up appointments -refer to therapy . Medication management educated on rx, benefits, side effects andrisk - Reassess medication regimen during follow-up appointments http_s://www.[facility].org/About-Me ntal-Illness/Me dqqu-Twjsdo-Hcw ditions http_s://psychc [employer]/depr ession/the-cogn itive-symptoms- of-depression#t reatments http__s://www.critical [facility] hospital[facility].gov/a [facility]/topics/ment or-mlhjyy-hxeme ations http__s://www.[facility].org/About-M ental-Illness/T reatments/Menta i-Ujhhuz-Uwfaia tions educated on all medications, benefits, side [...] and BS, monitor B/P see PCP and skein spooler - patient will schedule to be seen, [...] mg twice daily for tardive dyskinesia management- [facility] - He reports oral movements and [...] the medication Laboratory tests- obtain [facility]. HTN and DM Follow up PCP and skein spooler . Follow-up appointments -refer to therapy . Medication management educated on rx, benefits, side effects andrisk - Reassess medication regimen during follow-up appointments http_s://www.na mi.org/About-Me ntal-Illness/Me gdbp-Lzuyhy-Hoe ditions http_s://psychc entral.com/depr ession/the-cogn itive-symptoms- of-depression#t reatments http__s://www.n [facility].nih.gov/he[facility]ro [facility]/topics/ment dp-rzgqif-ipbtw ations http__s://www.n [facility].org/About-M ental-Illness/T reatments/Menta i-Monxmk-Chkuev tions educated on all medications, benefits, side [...] mg twice daily for tardive dyskinesia management- [facility] - He reports increase oral movements [...] regimen during follow-up appointments http_s://www.na mi.org/About-Me ntal-Illness/Me fzxa-Njpzgi-Cwc ditions http_s://psychc [employer].com/depr ession/the-cogn itive-symptoms- of-depression#t reatments http__s://www.[facility] hospital[facility].gov/[facility]/topics/ment kj-zfyqim-ukfae ations http__s://www.[facility].org/About-M ental-Illness/T reatments/Menta h-Nkkoko-Yclebt tions educated on all medications, benefits, side [...] and BS, monitor B/P see PCP and skein spooler - patient schedule to be seen, and [...] mg twice daily for tardive dyskinesia management- [facility] - He reports oral movements and [...] the medication Laboratory tests- [facility]. HTN and DM Follow up PCP and skein spooler . Follow-up appointments -refer to therapy . Medication management educated on rx, benefits, side effects andrisk - Reassess medication regimen during follow-up appointments http_s://www.na mi.org/About-Me ntal-Illness/Me rpep-Wisyfw-Vzz ditions http_s://psychc [employer]/depr ession/the-cogn itive-symptoms- of-depression#t reatments http__s://www.[facility] hospital[facility].gov/[facility]/topics/ment vi-datutx-xfshm ations http__s://www.[facility].org/About-M ental-Illness/T reatments/Menta p-Dvqzhc-Qumxxg tions educated on all medications, benefits, side [...] mg twice daily for tardive dyskinesia management- [facility] - He reports increase oral movements [...] regimen during follow-up appointments http_s://www.na mi.org/About-Me ntal-Illness/Me rfsh-Ahlgrc-Zfl ditions http_s://psychc [employer].com/depr ession/the-cogn itive-symptoms- of-depression#t reatments http__s://www.critical access hospital.nih.gov/hepedro [facility]/topics/ment na-norejq-fhsmq ations http__s://www.[facility].org/About-M ental-Illness/T reatments/Menta j-Cgqccs-Vmkvja tions educated on all medications, benefits, side [...] daily in am for tardive dyskinesia management- [facility] - He reports increase oral movements [...] regimen during follow-up appointments http_s://www.na mi.org/About-Me ntal-Illness/Me tpdh-Mhtkio-Wyz ditions http_s://psychc entral.com/depr ession/the-cogn itive-symptoms- of-depression#t reatments http__s://www.critical [facility] hospital[facility].gov/hea [facility]/topics/ment ux-xiprga-zqnjq ations http__s://www.n [facility].org/About-M ental-Illness/T reatments/Menta s-Nfcgka-Cyytxl tions educated on all medications, benefits, side [...] and interactions with prescribed medications.. - 12/24/2023 Post-traumatic stress disorder, chronic (ICD-10 - F43.12) 1.Depresson Rexulti 1 mg daily 2. Anxiety Prozac 40 mg Cymbalta 90 mg daily in am 3. Insomnia Trazodone 50 mg 4.Tardive dyskinesia - Increase Austedo XR 18 MG daily in am for tardive dyskinesia management- [facility] - He reports increase oral movements [...] regimen during follow-up appointments http_s://www.na mi.org/About-Me ntal-Illness/Me cmmg-Itfnvr-Aia ditions http_s://psychc entral.com/depr ession/the-cogn itive-symptoms- of-depression#t reatments http__s://www.critical [facility] hospital[facility].gov/[facility]/topics/ment xe-nihmfp-ranyp ations http__s://www.[facility].org/About-M ental-Illness/T reatments/Menta u-Pddipi-Oswdsr tions educated on all medications, benefits, side [...] mg twice daily for tardive dyskinesia management- [facility] - He reports increase oral movements [...] - Reassess medication regimen during follow-up appointments http_s://www.[facility].org/About-Me ntal-Illness/Me ciqx-Vwretw-Gop ditions http_s://psychc entral.com/depr ession/the-cogn itive-symptoms- of-depression#t reatments http__s://www.critical [facility] hospital.nih.gov/pedro [facility]/topics/ment ch-adexkz-mfxua ations http__s://www.[facility].org/About-M ental-Illness/T reatments/Menta y-Znsuds-Bzzbxm tions educated on all medications, benefits, side [...] and BS, monitor B/P see PCP and skein spooler - patient schedule to be seen, and [...] mg twice daily for tardive dyskinesia management- [facility] - He reports oral movements and [...] the medication [facility]. HTN and DM Follow up PCP and skein spooler . Follow-up appointments -refer to therapy . Medication management educated on rx, benefits, side effects andrisk - Reassess medication regimen during follow-up appointments http_s://www.na mi.org/About-Me ntal-Illness/Me ezzx-Jnzwor-Dwv ditions http_s://psychc [employer]/depr ession/the-cogn itive-symptoms- of-depression#t reatments http__s://www.n [facility].nih.gov/a [facility]/topics/ment zh-pjkavq-hwrnx ations http__s://www.[facility].org/About-M ental-Illness/T reatments/Menta b-Cltlcs-Nvxolx tions educated on all medications, benefits, side [...] and BS, monitor B/P see PCP and skein spooler - patient will schedule to be seen, [...] mg twice daily for tardive dyskinesia management- [facility] - He reports oral movements and [...] the medication Laboratory tests- [facility]. HTN and DM Follow up PCP and skein spooler . Follow-up appointments -refer to therapy . Medication management educated on rx, benefits, side effects andrisk - Reassess medication regimen during follow-up appointments http_s://www.na mi.org/About-Me ntal-Illness/Me hfho-Ourlih-Xfm ditions http_s://psychc entral.com/depr ession/the-cogn itive-symptoms- of-depression#t reatments http__s://www.n [facility].nih.gov/hea [facility]/topics/ment bg-lomlaa-icdhw ations http__s://www.n [facility].org/About-M ental-Illness/T reatments/Menta i-Ezrmoo-Rujzta tions educated on all medications, benefits, side [...] mg twice daily for tardive dyskinesia management- [facility] - He reports increase oral movements [...] regimen during follow-up appointments http_s://www.na mi.org/About-Me ntal-Illness/Me ywfh-Mwlnum-Odo ditions http_s://psychc entral.com/depr ession/the-cogn itive-symptoms- of-depression#t reatments http__s://www.[facility].gov/[facility]/topics/ment ks-swexyj-fnsxp ations http__s://www.[facility].org/About-M ental-Illness/T reatments/Menta b-Qdamiw-Obsnyv tions educated on all medications, benefits, side [...] mg twice daily for tardive dyskinesia management- [facility] - He reports increase oral movements [...] regimen during follow-up appointments http_s://www.na mi.org/About-Me ntal-Illness/Me kzqv-Fujaqi-Uic ditions http_s://psychc entral.com/depr ession/the-cogn itive-symptoms- of-depression#t reatments http__s://www.[facility].nih.gov/[facility]/topics/ment ye-zyfebw-epbhm ations http__s://www.[facility].org/About-M ental-Illness/T reatments/Menta q-Dtkcxm-Zhgdae tions educated on all medications, benefits, side [...] and BS, monitor B/P see PCP and skein spooler - patient will schedule to be seen, [...] mg twice daily for tardive dyskinesia management- [facility] - He reports oral movements and [...] the medication [facility]- [facility]. HTN and DM Follow up PCP and skein spooler . Follow-up appointments -refer to therapy . Medication management educated on rx, benefits, side effects andrisk - Reassess medication regimen during follow-up appointments http_s://www.[facility].org/About-Me ntal-Illness/Me rbpt-Lzaphy-Vuc ditions http_s://[employer]/depr ession/the-cogn itive-symptoms- of-depression#t reatments http__s://www.[facility].nih.gov/[facility]/topics/ment hw-bhijax-qbifp ations http__s://www.[facility].org/About-M ental-Illness/T reatments/Menta n-Bvowen-Gszrac tions educated on all medications, benefits, side [...] and BS, monitor B/P see PCP and skein spooler - patient schedule to be seen, and [...] mg twice daily for tardive dyskinesia management- [facility] - He reports oral movements and [...] the medication Laboratory tests- obtain [facility]. HTN and DM Follow up PCP and skein spooler . Follow-up appointments -refer to therapy . Medication management educated on rx, benefits, side effects andrisk - Reassess medication regimen during follow-up appointments http_s://www.na mi.org/About-Me ntal-Illness/Me lskr-Rertaj-Lun ditions http_s://psychc entral.com/depr ession/the-cogn itive-symptoms- of-depression#t reatments http__s://www.[facility].nih.gov/[facility]/topics/ment on-htilzq-rcxas ations http__s://www.n [facility].org/About-M ental-Illness/T reatments/Menta z-Mnsmkk-Modxfl tions educated on all medications, benefits, side [...] mg twice daily for tardive dyskinesia management- [facility] - He reports increase oral movements [...] - Reassess medication regimen during follow-up appointments http_s://www.[facility].org/About-Me ntal-Illness/Me xpry-Zpbrff-Qyj ditions http_s://psychSchoooools.com.[employer]/depr ession/the-cogn itive-symptoms- of-depression#t reatments http__s://www.[facility].gov/[facility]/topics/ment vb-tcymua-lfzvi ations http__s://www.[facility].org/About-M ental-Illness/T reatments/Menta s-Gcgfro-Eyujci tions educated on all medications, benefits, side [...] daily in am for tardive dyskinesia management- [facility] - He reports increase oral movements [...] regimen during follow-up appointments http_s://www.na mi.org/About-Me ntal-Illness/Me pcgh-Jfyxzt-Hyb ditions http_s://psychSchoooools.com.[employer]/depr ession/the-cogn itive-symptoms- of-depression#t reatments http__s://www[facility].nih.gov/[facility]/topics/ment yo-otukzd-ikpfm ations http__s://www.[facility].org/About-M ental-Illness/T reatments/Menta v-Lejbjj-Jcxbfe tions educated on all medications, benefits, side [...] and BS, monitor B/P see PCP and skein spooler - patient schedule to be seen, and [...] mg twice daily for tardive dyskinesia management- [facility] - He reports oral movements and [...] the medication Laboratory tests- obtain [facility]. HTN and DM Follow up PCP and skein spooler . Follow-up appointments -refer to therapy . Medication management educated on rx, benefits, side effects andrisk - Reassess medication regimen during follow-up appointments http_s://www.na mi.org/About-Me ntal-Illness/Me jbgr-Ljyski-Yvi ditions http_s://psychc [employer] [facility]/depr ession/the-cogn itive-symptoms- of-depression#t reatments http__s://www.[facility].gov/[facility]/topics/ment qg-rcthoh-njatq ations http__s://www.[facility].org/About-M ental-Illness/T reatments/Menta i-Vmpxvp-Bomlbf tions educated on all medications, benefits, side [...] and BS, monitor B/P see PCP and skein spooler - patient will schedule to be seen, [...] mg twice daily for tardive dyskinesia management- [facility] - He reports oral movements and [...] the medication Laboratory tests- obtain [facility]. HTN and DM Follow up PCP and skein spooler . Follow-up appointments -refer to therapy . Medication management educated on rx, benefits, side effects andrisk - Reassess medication regimen during follow-up appointments http_s://www.na mi.org/About-Me ntal-Illness/Me puoe-Wqfhty-Zzg ditions http_s://psychc entral.com/depr ession/the-cogn itive-symptoms- of-depression#t reatments http__s://www.[facility].nih.gov/[facility]/topics/ment jh-oewjpg-ihwyd ations http__s://www.n ami.org/About-M ental-Illness/T reatments/Cameron x-Iucypc-Nltjxp tions educated on all medications, benefits, side [...] and BS, monitor B/P see PCP and skein spooler - patient will schedule to be seen, [...] mg twice daily for tardive dyskinesia management- [facility] - He reports oral movements and [...] the medication Laboratory tests- obtain [facility]. HTN and DM Follow up PCP and skein spooler . Follow-up appointments -refer to therapy . Medication management educated on rx, benefits, side effects andrisk - Reassess medication regimen during follow-up appointments http_s://www.[facility].org/About-Me ntal-Illness/Me gjxm-Ahtfig-Bxa ditions http_s://psychc entr[employer].com/depr ession/the-cogn itive-symptoms- of-depression#t reatments http__s://www.[facility].nih.gov/[facility]/topics/ment ih-wfvewk-cmzrn ations http__s://www.[facility].org/About-M ental-Illness/T reatments/Menta u-Ajdggz-Uvddiz tions educated on all medications, benefits, side [...] and BS, monitor B/P see PCP and skein spooler - patient schedule to be seen, and [...] mg twice daily for tardive dyskinesia management- [facility] - He reports oral movements and [...] the medication Laboratory tests- obtain [facility]. HTN and DM Follow up PCP and skein spooler . Follow-up appointments -refer to therapy . Medication management educated on rx, benefits, side effects andrisk - Reassess medication regimen during follow-up appointments http_s://www.na mi.org/About-Me ntal-Illness/Me fyef-Ucohlw-Emk ditions http_s://psychSchoooools.com.[employer]/depr ession/the-cogn itive-symptoms- of-depression#t reatments http__s://www.[facility].nih.gov/[facility]/topics/ment ca-gabmtq-gbgvr ations http__s://www.n [facility].org/About-M ental-Illness/T reatments/Menta f-Deznzv-Rfnflh tions educated on all medications, benefits, side [...] and BS, monitor B/P see PCP and skein spooler - patient schedule to be seen, and [...] mg twice daily for tardive dyskinesia management- [facility] - He reports oral movements and [...] the medication Laboratory tests- obtain [facility]. HTN and DM Follow up PCP and skein spooler . Follow-up appointments -refer to therapy . Medication management educated on rx, benefits, side effects andrisk - Reassess medication regimen during follow-up appointments http_s://www.na mi.org/About-Me ntal-Illness/Me pmjn-Cntpdk-Kxf ditions http_s://psychc entral.com/depr ession/the-cogn itive-symptoms- of-depression#t reatments http__s://www.[facility].nih.gov/[facility]/topics/ment vd-ngpgae-vougc ations http__s://www.n [facility].org/About-M ental-Illness/T reatments/Menta k-Oioaue-Rexhjf tions educated on all medications, benefits, side [...] and BS, monitor B/P see PCP and skein spooler - patient will schedule to be seen, [...] mg twice daily for tardive dyskinesia management- [facility] - He reports oral movements and [...] the medication Laboratory tests- obtain [facility]. HTN and DM Follow up PCP and skein spooler . Follow-up appointments -refer to therapy . Medication management educated on rx, benefits, side effects andrisk - Reassess medication regimen during follow-up appointments http_s://www. mi.org/About-Me ntal-Illness/Me pdpx-Hkprph-Nqk ditions http_s://psychSchoooools.com.[employer]/depr ession/the-cogn itive-symptoms- of-depression#t reatments http__s://www.[facility].gov/[facility]/topics/ment xg-lnimfh-yjifx ations http__s://www.[facility].org/About-M ental-Illness/T reatments/Menta r-Qaqctw-Ppnvlm tions educated on all medications, benefits, side [...] and BS, monitor B/P see PCP and skein spooler - patient schedule to be seen, and [...] mg twice daily for tardive dyskinesia management- [facility] - He reports oral movements and [...] the medication Laboratory tests- obtain [facility]. HTN and DM Follow up PCP and skein spooler . Follow-up appointments -refer to therapy . Medication management educated on rx, benefits, side effects andrisk - Reassess medication regimen during follow-up appointments http_s://www.na mi.org/About-Me ntal-Illness/Me qfto-Zxhwhd-Gsx ditions http_s://psychc entral.com/depr ession/the-cogn itive-symptoms- of-depression#t reatments http__s://www.n [facility].nih.gov/[facility]/topics/ment br-yddmeg-dxmzx ations http__s://www.n [facility].org/About-M ental-Illness/T reatments/Menta d-Qxckiq-Vcnkhq tions educated on all medications, benefits, side [...] and interactions with prescribed medications.. - 01/24/2024 Other Deutetrabenazin e Oral Tablet (DEUTETRABENAZINE [...] mg twice daily for tardive dyskinesia management- [facility] - He reports increase oral movements [...] - Reassess medication regimen during follow-up appointments http_s://www.[facility].org/About-Me ntal-Illness/Me xqgu-Hobuwb-Jrz ditions http_s://[employer]/depr ession/the-cogn itive-symptoms- of-depression#t reatments http__s://www.[facility].gov/[facility]/topics/ment yf-bkzgor-pztos ations http__s://www.[facility].org/About-M ental-Illness/T reatments/Menta g-Gfpsdb-Mbvjlp tions educated on all medications, benefits, side [...] might be able to help such as [employer] plus. 02/17/2024 Other Mariana reports he has a number of things [...] without using your hands.3. Strength Training Exercises- Rts-vt-xshkq: rise from a chair repeatedly.- Wall push-ups: [...] and BS, monitor B/P see PCP and skein spooler - patient schedule to be seen, and [...] mg twice daily for tardive dyskinesia management- [facility] - He reports oral movements and [...] the medication Laboratory tests- [facility]. HTN and DM Follow up PCP and skein spooler . Follow-up appointments -refer to therapy . Medication management educated on rx, benefits, side effects andrisk - Reassess medication regimen during follow-up appointments http_s://www.na mi.org/About-Me ntal-Illness/Me zyod-Qsgmiv-Apd ditions http_s://psychc entral.com/depr ession/the-cogn itive-symptoms- of-depression#t reatments http__s://www.n [facility].nih.gov/[facility]/topics/ment px-htdxaq-scxqn ations http__s://www.n [facility].org/About-M ental-Illness/T reatments/Menta m-Bgtltr-Vqzjgq tions educated on all medications, benefits, side [...] Insured Coverage Start Date Coverage End Date [facility] Medicare Replacement/ Advantage - Ppo [address] [address] [place] [address] [id number] JACQUELIN CONRAD Self - patient is the insured [place] Medicaid [address] [address] [place] [address] [id number] JACQUELIN CONRAD Self - patient is the insured Medical (General) History Medical History History ICD Code Problems: Chronic post-traumatic stress disorder Generalized anxiety disorder Intermittent explosive disorder Mild recurrent major depression Primary insomnia Severe recurrent major depression , Surgical History Surgery Date(Month/Year) Heart surgery 2009 Cardiac stent 2009 & 2018 Cervical laminectomy (319634373) 1998 & 2000 Repair of inguinal hernia (34888065) 201 2 & 2012 Cardiac stent 06/16/2009 Heart surgery 12/16/2009 Removal of gallbladder (13604) 9
--- NOTE | 2024-12-15 18:35 | ED_ITS ---
HPI - General Adult General Chief complaint: Abdominal Pain <Cortney Hutson OFFSET PRESS OPERATOR APPRENTICE - Last Filed: 12/15/24 19:13> Stated complaint: SBO <Cortney Hutson OFFSET PRESS OPERATOR APPRENTICE - Last Filed: 12/15/24 19:13> Time Seen by Provider: 12/15/24 18:35 <Cortney Hutson OFFSET PRESS OPERATOR APPRENTICE - Last Filed: 12/15/24 19:13> Focused HPI: Leeroy López is a 64 y/o male with hx of DM , HTN, HLD who presents today with about 1 month of upset stomach, nausea, very little bowel movements, Last small BM was earlier today, He did have some vomiting yesterday. He states no particular pain at this time but feeling very nauseated. He has not eaten today, He last drank some Gatorade at around 1430 today GENERAL: Well-appearing, well-nourished, and in no acute distress. HEAD: Normocephalic, atraumatic. CHEST: Clear to auscultation. ?No respiratory distress. HEART: Regular rate and rhythm.? NEURO: ?Alert and oriented x3. Patient screened in triage and initial orders placed.? ?Additional care and disposition to be based upon?diagnostic testing and treatment. <Cortney Hutson, OFFSET PRESS OPERATOR APPRENTICE - Last Filed: 12/15/24 19:13> History of Present Illness HPI narrative: Agree with the HPI above <Negrito Martinez MD - Last Filed: 12/16/24 19:07> Related Data Home medications: Home Medications ?Medication ?Instructions ?Recorded ?Confirmed ?Last Taken ?Type fluoxetine 40 mg capsule 40 mg PO DAILY 08/13/2211/2910/07/22 History omega 2-rlh-wto-fish oil 1,000 mg 2 cap PO DAILY 10/2012/15/24 Unknown History (120 mg-180 mg) capsule (Fish Oil) deutetrabenazine 9 mg tablet 9 mg PO BID 03/07/2411/29 Unknown History (Austedo) brexpiprazole 1 mg tablet (Rexulti) 2 mg PO DAILY 07/3112/15/24 Unknown History duloxetine 30 mg capsule,delayed 30 mg PO DAILY 12/15/24 Unknown History release duloxetine 60 mg capsule,delayed 60 mg PO DAILY 12/15/24 Unknown History release trazodone 50 mg tablet 50 mg PO HS 12/15/24 5 Unknown History <Cortney Hutson, OFFSET PRESS OPERATOR APPRENTICE - Last Filed: 12/15/24 19:13> Allergies/adverse reactions: Allergies Allergy/AdvReac Type Severity Reaction Status Date / Time metformin AdvReac Intermediate Unknown Verified 12/15/24 22:55 <Cortney Murcia June, OFFSET PRESS OPERATOR APPRENTICE - Last Filed: 12/15/24 19:13> Review of Systems 2 Review of Systems: As reviewed above in HPI <Negrito Martinez MD - Last Filed: 12/16/24 19:07> [facility] Past Medical History Medical History: Medical History (Updated 12/16/24 @ 19:07 by Negrito Martinez MD) CAD (coronary artery disease), autologous vein bypass graft CKD (chronic kidney disease) stage 3, GFR 30-59 ml/min Chronic obstructive pulmonary disease Hypertriglyceridemia Erectile dysfunction Vitamin D deficiency Tardive dyskinesia Suicide ideation With most recent hospitalization May 2024 Unspecified atherosclerosis of [place] arteries of extremities, bilateral legs Intravenous drug abuse in remission In remission since 1986 Posttraumatic stress disorder Kidney stones Pancreatitis Diverticulitis Obstructive sleep apnea Intolerant to CPAP Gastroesophageal reflux disease Postablative hypothyroidism Status post radioactive iodine ablation in 1974 Diabetic peripheral neuropathy Insulin dependent type 2 diabetes mellitus Coronary artery disease Hypertension (~2009) Anxiety Depression Recovering alcoholic quit drinking in 1987 Hyperlipidemia <Cortney Hutson - Last Filed: 12/15/24 19:13> Surgical History Surgical History: Surgical History History of coronary artery stent placement History of cardiac catheterization History of inguinal hernia repair History of cholecystectomy History of coronary artery bypass graft x 1 (11/2009) History of cervical spinal surgery C4-C5 C6-C7 laminectomy and fusion <Cortney Hutson, OFFSET PRESS OPERATOR APPRENTICE - Last Filed: 12/15/24 19:13> Family History Family History: Family History Father Diabetes mellitus Heart disease Mother Heart disease Cerebrovascular accident Diabetes mellitus Dementia Unknown Hypertension Cancer <Cortney Murcia June, - Last Filed: 12/15/24 19:13> Social History Social History: Social History (Updated 12/16/24 @ 00:55 by Maggie Fuentes DO) Social History: Surrogate medical decision maker: Brandon Schaefer, brother ([phone]). Code status: Full code. Smoking packs per day: 2 Smoking cigarettes per day: 40.0 Years smoked: 35 Smoking pack-years: 70.00 Smoking status: Former smoker Tobacco type: cigarettes Second hand tobacco smoke exposure: No Smoking end date: 06/28/09 Alcohol intake: former Alcohol use details: Heavy drinker until 1989. Substance use: former Substance use type: opiates and IV drugs Last use: 1987 Do You Feel Safe in your Home?: Yes Lack of Transportation: YES Lack of Food: Sometimes True Current Housing: I Have Housing Concerned About Future Housing: YES Difficulty Paying Gas/Electric Bills: YES Difficulty Paying for Meds: YES Currently Unemployed: No Education: Associate Degree Difficulty w/ Childcare or Family Care: No Living arrangements: other Additional living arrangements comments: low income apartment Occupation/Education: unemployed Additional occupation/education comments: Lost job in late April,. He is on disability due to his psychiatric illness. 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 Spiritual care concerns: No Agree to blood products: Yes <Cortney Murcia June, - Last Filed: 12/15/24 19:13> Exam 2 Narrative: GENERAL: [Well-appearing, well-nourished, and in no acute distress.] HEAD: [Normocephalic, atraumatic.] EYES: [PERRLA and EOMI.] ENT: Nares clear, no rhinorrhea or epistaxis. Mucous membranes dry. NECK: Supple. CHEST: [Clear to auscultation. No respiratory distress.] HEART: [Regular rate and rhythm]. No murmur heard. [Normal peripheral pulses.] ABDOMEN: [Soft, nondistended], tender to palpation the right flank no overlying skin changes, [No rigidity or guarding] EXTREMITIES: Normal range of motion. [No edema.] SKIN: Warm, dry, no rash. NEURO: [No focal deficits]. Alert and oriented [x3.] PSYCH: [Normal mood and affect.] <Negrito Martinez MD - Last Filed: 12/16/24 19:07> Course Vital Signs Vital signs: Vital Signs Temperature 36.6 C 12/15/24 18:29 Pulse Rate 100 12/15/24 18:29 Respiratory Rate 16 12/15/24 18:29 Blood Pressure 174/110 H 12/15/24 18:29 Pulse Oximetry 99 12/15/24 18:29 Oxygen Delivery Room Air 12/15/24 18:29 Temperature 36.2 C L 12/16/24 15:49 Pulse Rate 64 12/16/24 16:00 Respiratory Rate 18 12/16/24 15:49 Blood Pressure 121/83 12/16/24 15:49 Pulse Oximetry 98 12/16/24 15:49 Oxygen Delivery Room Air 12/16/24 13:45 Oxygen Flow Rate 8 12/16/24 13:00 <Cortney Hutson, OFFSET PRESS OPERATOR APPRENTICE - Last Filed: 12/15/24 19:13> Vital Signs Temperature 36.6 C 12/15/24 18:29 Pulse Rate 100 12/15/24 18:29 Respiratory Rate 16 12/15/24 18:29 Blood Pressure 174/110 H 12/15/24 18:29 Pulse Oximetry 99 12/15/24 18:29 Oxygen Delivery Room Air 12/15/24 18:29 Temperature 36.2 C L 12/16/24 15:49 Pulse Rate 64 12/16/24 16:00 Respiratory Rate 18 12/16/24 15:49 Blood Pressure 121/83 12/16/24 15:49 Pulse Oximetry 98 12/16/24 15:49 Oxygen Delivery Room Air 12/16/24 13:45 Oxygen Flow Rate 8 12/16/24 13:00 <Negrito Martinez MD - Last Filed: 12/16/24 19:07> Medical Decision Making MDM Narrative Medical decision making narrative: 64 y/o male with hx of DM , HTN, HLD who presents today with about 1 month of upset stomach, nausea, very little bowel movements, Last small BM was earlier today, He did have some vomiting yesterday. He states no particular pain at this time but feeling very nauseated. He has not eaten today, He last drank some Gatorade at around 1430 today . Patient appears very dehydrated, dry mucous membranes, reproducible pain in the right flank but no overlying skin changes. Soft nontender abdomen in the lower quadrants. No distension. Differential includes dehydration, diabetic complications from his uncontrolled type 2 diabetes, kidney stone, gallbladder pathology, less likely bowel obstruction. Workup underway including CBC, CMP, lactic acid, urinalysis and a CT scan with contrast. He was given fluid hydration and Zofran. Patient does not want pain control medications were narcotics as he is a recovering addict. Given Bentyl for his abdominal pain and cramping. CT scan shows obstructing right-sided kidney stone 9.6 mm. Laboratory studies show significant derangements including leukocytosis of 15, NAS on CKD with acute renal failure almost triple of his baseline creatinine likely pre renal azotemia with his dehydration clinical evidence. Urinalysis pending as he was having difficulty getting any urine is dehydration. Glucose mildly elevated, no acidosis. Mildly elevated anion gap likely uremia based. Given 2 L of hydration and re-evaluated. Patient is tolerating oral intake but made NPO at this time given the kidney stone. Spoke to the urologist Dr. Camp who recommended making the patient NPO for stenting or early tomorrow morning for obstructive hydronephrosis and NAS on CKD likely for obstructive uropathy in addition to dehydration. Awaiting discussion with the hospitalist for admission. Spoke to the hospitalist who accepted the patient to admission at this time. Made NPO at this time. Given hydration and pain is under control at this juncture. <Negrito Martinez MD - Last Filed: 12/16/24 19:07> Medical Records Medical records reviewed: Yes I reviewed the external patient's medical records. <Negrito Martinez MD - Last Filed: 12/16/24 19:07> Vital Signs Vital Signs: Vital Signs Temperature 36.6 C 12/15/24 18:29 Pulse Rate 100 12/15/24 18:29 Respiratory Rate 16 12/15/24 18:29 Blood Pressure 174/110 H 12/15/24 18:29 Pulse Oximetry 99 12/15/24 18:29 Oxygen Delivery Room Air 12/15/24 18:29 Temperature 36.2 C L 12/16/24 15:49 Pulse Rate 64 12/16/24 16:00 Respiratory Rate 18 12/16/24 15:49 Blood Pressure 121/83 12/16/24 15:49 Pulse Oximetry 98 12/16/24 15:49 Oxygen Delivery Room Air 12/16/24 13:45 Oxygen Flow Rate 8 12/16/24 13:00 <Cortney Hutson, OFFSET PRESS OPERATOR APPRENTICE - Last Filed: 12/15/24 19:13> Vital Signs Temperature 36.6 C 12/15/24 18:29 Pulse Rate 100 12/15/24 18:29 Respiratory Rate 16 12/15/24 18:29 Blood Pressure 174/110 H 12/15/24 18:29 Pulse Oximetry 99 12/15/24 18:29 Oxygen Delivery Room Air 12/15/24 18:29 Temperature 36.2 C L 12/16/24 15:49 Pulse Rate 64 12/16/24 16:00 Respiratory Rate 18 12/16/24 15:49 Blood Pressure 121/83 12/16/24 15:49 Pulse Oximetry 98 12/16/24 15:49 Oxygen Delivery Room Air 12/16/24 13:45 Oxygen Flow Rate 8 12/16/24 13:00 <Negrito Martinez MD - Last Filed: 12/16/24 19:07> Lab Data Lab results reviewed: Yes I reviewed the patient's lab results. <Negrito Martinez MD - Last Filed: 12/16/24 19:07> Result diagrams: 12/16/24 05:52 12/16/24 16:59 <Cortney Hutson, OFFSET PRESS OPERATOR APPRENTICE - Last Filed: 12/15/24 19:13> Labs: Lab Results 12/15/24 12/15/24 Range/Units 19:04 20:43 WBC 15.2 H (4.5-10.0) K/mm3 RBC 5.52 (4.6-6.20) M/mm3 Hgb 15.8 D (14.0-18.0) g/dL Hct 43.0 (42.0-52.0) % MCV 77.9 L (80-100) fl MCH 28.6 (26-34) pg MCHC 36.7 H (32-36) g/dl RDW 12.7 (11.5-14.5) % Plt Count 290 D (150-375) k/mm3 MPV 10.4 (7.4-10.4) fl Immature Gran % (Auto) 0.5 (0-0.5) % Neut % (Auto) 76.3 H (45.5-73.1) % Lymph % (Auto) 16.7 L (18.3-44.2) % Boyd % (Auto) 5.7 (2.6-8.5) % Eos % (Auto) 0.4 (0-4.4) % Baso % (Auto) 0.4 (0.2-1.2) % Lymph # (Auto) 2.53 (0.9-3.2) K/mm3 Boyd # (Auto) 0.9 H (0.1-0.6) K/mm3 Eos # (Auto) 0.1 (0-0.3) K/mm3 Baso # (Auto) 0.1 (0.0-0.1) K/mm3 Abs Immat Gran (auto) 0.08 H (0.00-0.031) K/mm3 Absolute Neuts (auto) 11.6 H (1.3-6.7) K/mm3 Absolute Nucleated RBC 0.000 (0.0-0.012) K/mm3 Nucleated RBC % 0.0 (0.0-0.2) % Sodium 134 L (137-145) mmol/L Potassium 3.0 L (3.4-5.0) mmol/L Chloride 89 L (98-107) mmol/L Carbon Dioxide 25 (22-30) mmol/L Anion Gap 20 H (4-12) mmol/L BUN 53 H D (9-20) mg/dL Creatinine 3.55 H (0.7-1.3) mg/dL Estim Creat Clear Calc 23 ml/min Estimated GFR 17 L (59 - ) Glucose 381 H (65-110) mg/dL Lactic Acid 1.8 (0.7-2.0) mmol/L Calcium 9.5 (8.4-10.2) mg/dL Phosphorus 3.7 (2.5-4.5) mg/dL Magnesium 1.6 (1.6-2.3) mg/dL Total Bilirubin 1.0 (0.2-1.3) mg/dL AST 36 (17-59) U/L ALT 57 H (6-50) U/L Alkaline Phosphatase 116 (38-126) U/L Total Protein 9.4 H (6.3-8.2) g/dL Albumin 5.2 H (3.5-5.1) g/dL Lipase 105 (23-300) U/L Urine Color Yellow (Yellow) Urine Appearance Cloudy H (Clear) Urine pH 5.5 (5.0-9.0) Ur Specific [place] 1.011 (1.001-1.035) Urine Protein 1+ H (Negative) mg/dL Urine Glucose (UA) Trace H (Negative) mg/dL Urine Ketones Negative (Negative) mg/dL Ur Blood (Man) 1+ H (Negative) Urine Nitrate Negative (Negative) Urine Bilirubin Negative (Negative) Urine Urobilinogen 1.0 (<2.0) mg/dL Add Ur Microanalysis Reviewed Leukocyte Esterase Rfl Negative (Negative) PEG/UL Urine RBC 0-2 (0-2) /hpf Urine WBC 0-5 (0-3) /hpf Ur Squamous Epith Cells None seen (Few) /hpf Urine Bacteria None seen /hpf Urine Casts 6-10 <Cortney Murcia June, OFFSET PRESS OPERATOR APPRENTICE - Last Filed: 12/15/24 19:13> Lab Results 12/15/24 12/15/24 Range/Units 19:04 20:43 WBC 15.2 H (4.5-10.0) K/mm3 RBC 5.52 (4.6-6.20) M/mm3 Hgb 15.8 D (14.0-18.0) g/dL Hct 43.0 (42.0-52.0) % MCV 77.9 L (80-100) fl MCH 28.6 (26-34) pg MCHC 36.7 H (32-36) g/dl RDW 12.7 (11.5-14.5) % Plt Count 290 D (150-375) k/mm3 MPV 10.4 (7.4-10.4) fl Immature Gran % (Auto) 0.5 (0-0.5) % Neut % (Auto) 76.3 H (45.5-73.1) % Lymph % (Auto) 16.7 L (18.3-44.2) % Boyd % (Auto) 5.7 (2.6-8.5) % Eos % (Auto) 0.4 (0-4.4) % Baso % (Auto) 0.4 (0.2-1.2) % Lymph # (Auto) 2.53 (0.9-3.2) K/mm3 Boyd # (Auto) 0.9 H (0.1-0.6) K/mm3 Eos # (Auto) 0.1 (0-0.3) K/mm3 Baso # (Auto) 0.1 (0.0-0.1) K/mm3 Abs Immat Gran (auto) 0.08 H (0.00-0.031) K/mm3 Absolute Neuts (auto) 11.6 H (1.3-6.7) K/mm3 Absolute Nucleated RBC 0.000 (0.0-0.012) K/mm3 Nucleated RBC % 0.0 (0.0-0.2) % Sodium 134 L (137-145) mmol/L Potassium 3.0 L (3.4-5.0) mmol/L Chloride 89 L (98-107) mmol/L Carbon Dioxide 25 (22-30) mmol/L Anion Gap 20 H (4-12) mmol/L BUN 53 H D (9-20) mg/dL Creatinine 3.55 H (0.7-1.3) mg/dL Estim Creat Clear Calc 23 ml/min Estimated GFR 17 L (59 - ) Glucose 381 H (65-110) mg/dL Lactic Acid 1.8 (0.7-2.0) mmol/L Calcium 9.5 (8.4-10.2) mg/dL Phosphorus 3.7 (2.5-4.5) mg/dL Magnesium 1.6 (1.6-2.3) mg/dL Total Bilirubin 1.0 (0.2-1.3) mg/dL AST 36 (17-59) U/L ALT 57 H (6-50) U/L Alkaline Phosphatase 116 (38-126) U/L Total Protein 9.4 H (6.3-8.2) g/dL Albumin 5.2 H (3.5-5.1) g/dL Lipase 105 (23-300) U/L Urine Color Yellow (Yellow) Urine Appearance Cloudy H (Clear) Urine pH 5.5 (5.0-9.0) Ur Specific [place] 1.011 (1.001-1.035) Urine Protein 1+ H (Negative) mg/dL Urine Glucose (UA) Trace H (Negative) mg/dL Urine Ketones Negative (Negative) mg/dL Ur Blood (Man) 1+ H (Negative) Urine Nitrate Negative (Negative) Urine Bilirubin Negative (Negative) Urine Urobilinogen 1.0 (<2.0) mg/dL Add Ur Microanalysis Reviewed Leukocyte Esterase Rfl Negative (Negative) PEG/UL Urine RBC 0-2 (0-2) /hpf Urine WBC 0-5 (0-3) /hpf Ur Squamous Epith Cells None seen (Few) /hpf Urine Bacteria None seen /hpf Urine Casts 6-10 <Negrito Martinez MD - Last Filed: 12/16/24 19:07> Imaging Data Attestation: I personally reviewed and interpreted this imaging study as follows: < Negrito Martinez MD - Last Filed: 12/16/24 19:07> My impression: Impressions Abdomen/Pelvis CT 12/15/24 19:29 IMPRESSION: Right hydronephrosis secondary to a 9.6 mm stone in the proximal right ureter. All CT scans at this facility are performed using low dose modulation techniques as appropriate to perform exam including the following: automated exposure control; use of iterative reconstruction technique; adjustment of the mA and/or kV according to patient size (this includes techniques or standardized protocols for targeted exams where dose is matched to indication/reason for exam). <Negrito Martinez MD - Last Filed: 12/16/24 19:07> Critical Care Time Critical Care Time Critical Care Time: Yes <Negrito Martinez MD - Last Filed: 12/16/24 19:07> Total Critical Care Time: 35 <Negrito Martinez MD - Last Filed: 12/16/24 19:07> Discharge Plan Discharge Clinical Impression: Acute renal failure, Hydronephrosis with renal calculous obstruction <Cortney Hutson OFFSET PRESS OPERATOR APPRENTICE - Last Filed: 12/15/24 19:13> Patient Disposition: Still a Patient <Cortney Hutson OFFSET PRESS OPERATOR APPRENTICE - Last Filed: 12/15/24 19:13> Condition: Stable <Cortney J. May, OFFSET PRESS OPERATOR APPRENTICE - Last Filed: 12/15/24 19:13>
[2024-12-15 19:15] LABS: Hematocrit 43.0 % (42.0-52.0); Hemoglobin 15.8 g/dL (14.0-18.0); Immature Granulocyte Percent A 0.5 % (0-0.5); Lymphocytes Absolute Auto 2.53 K/mm3 (0.9-3.2); Mean Corpuscular HGB Conc 36.7 g/dl (32-36); Mean Corpuscular Hemoglobin 28.6 pg (26-34); Mean Corpuscular Volume 77.9 fl (80-100); Nucleated Red Blood Cells Absolute Auto 0.000 K/mm3 (0.0-0.012); Nucleated Red Blood Cells Perc 0.0 % (0.0-0.2); Platelet Count Result 290 k/mm3 (150-375); Red Blood Count 5.52 M/mm3 (4.6-6.20); White Blood Count 15.2 K/mm3 (4.5-10.0)
[2024-12-15 19:26] LABS: Alanine Aminotransferase 57 U/L (6-50); Albumin Level 5.2 g/dL (3.5-5.1); Alkaline Phosphatase 116 U/L (38-126); Anion Gap 20 mmol/L (4-12); Aspartate Amino Transferase 36 U/L (17-59); Bilirubin,Total 1.0 mg/dL (0.2-1.3); Blood Urea Nitrogen 53 mg/dL (9-20); Calcium 9.5 mg/dL (8.4-10.2); Carbon Dioxide 25 mmol/L (22-30); Chloride 89 mmol/L (98-107); Estimated CRCL calculation 23 ml/min; Estimated Glomerular Filt Rate 17; Glucose 381 mg/dL (65-110); Lipase 105 U/L (23-300); Potassium 3.0 mmol/L (3.4-5.0); Sodium 134 mmol/L (137-145); Total Protein 9.4 g/dL (6.3-8.2)
[2024-12-15 20:15] VITALS: BP 173/102; PULSE 97; RESP 18; O2SAT 98
[2024-12-15 20:45] VITALS: BP 166/109; PULSE 95; RESP 20; O2SAT 99
[2024-12-15] MEDS: LACTATED RINGERS 1,000 ML 999 ML IV CONT ×2 (20:49)
[2024-12-15] MEDS: DICYCLOMINE HCL 10 MG CAPSULE PO (20:49)
[2024-12-15] MEDS: cefTRIAXone 1 GM in SODIUM CHLORIDE 0.9% IV 50 ML 100 ML IVPB (20:50)
[2024-12-15] MEDS: ONDANSETRON INJ 4 MG/2 ML VIAL IV PUSH (20:50)
[2024-12-15] MEDS: TAMSULOSIN HCL 0.4 MG CAPSULE PO (20:54)
[2024-12-15 21:05] LABS: Add Urine Microscopic? YES; Appearance Urine Cloudy (Clear); Glucose Urine UA Trace mg/dL (Negative); Leukocyte Esterase Ur Negative LEU/UL (Negative); Need Manual Microscopic Reviewed; Nitrate Urine Negative (Negative); Specific Grav Ur 1.011 (1.001-1.035)
[2024-12-15 21:15] VITALS: BP 186/128; PULSE 88; RESP 18; O2SAT 100
[2024-12-15 21:38] LABS: Magnesium 1.6 mg/dL (1.6-2.3)
[2024-12-15 21:55] VITALS: BP 203/123; PULSE 86; RESP 18; O2SAT 100
[2024-12-15] MEDS: POTASSIUM CHLORIDE 20 MEQ PACKET (FOR LIQUID) 40 MEQ PO (22:23)
[2024-12-15 22:24] VITALS: BP 191/120; PULSE 89; RESP 20; O2SAT 96
--- NOTE | 2024-12-15 22:27 | PC.NURSE ---
RN attempted to call RN on [facility] 3X and no answer. RN attempted to call RNs vocera and RN is not logged in. RN will give bedside report.
[2024-12-15] MEDS: LACTATED RINGERS 1,000 ML 150 ML IV CONT (22:46)
--- NOTE | 2024-12-15 22:46 | PC.NURSE ---
RN transported patient to [address] [place] [address]. RN asked ERIKA Serrano if she would like to do bedside report in room. ERIKA Serrano refused bedside report and stated she had no questions. This RN transferred patient to room alone.
[2024-12-15 22:53] VITALS: BMI 32.2
--- NOTE | 2024-12-15 22:54 | ADMGEN ---
This patient, Lereoy Schaefer, was admitted to Medical Room 349-01. Patient/family oriented to hospital policies and general routines including ID bracelet, bed and alarms, visiting hours, pain management, procedures, bathroom and other care routines, personal items, smoking policy, room service/diet, and visiting hours. Information on how to activate the Rapid Response Team has been discussed. Patient/Family are encouraged to report perceived risks to care and to ask questions if they do not understand what they are told or what they should do.
--- NOTE | 2024-12-15 23:40 | P.HP_ITS ---
H&P: HPI History of Present Illness Date/Time: 12/15/24 23:40 Chief Complaint: Spasms in his abdomen Narrative: 64-year-old male with a past medical history of chronic kidney disease, treatment resistant depression, PTSD, tardive dyskinesia, uncontrolled diabetes mellitus with diabetic peripheral neuropathy, essential hypertension, coronary artery disease with 1 vessel bypass, GERD and hypothyroidism who presented to the ER with complaints of spasming pain in his abdomen. He reports that he has been having intermittent upset stomach for about 1 month. He states that his last good bowel movement was a couple of weeks ago was normally formed soft and large. Ever since then he has only been having small soft mushy bowel movements. His last bowel movement was earlier today. He reports a poor appetite. He has been having spasming pain in his abdomen where he feels like his entire abdomen is cramping up. He has been having significant amounts of nausea but only had 1 episode of emesis yesterday that was consisted of his undigested veggie burger. He drink some Gatorade before coming into the ER. He denies any dysuria, hematuria or changes in urinary frequency. He does reported distant history of kidney stones. CT of the abdomen pelvis performed in the ER demonstrated 9.6 mm proximal obstructing right ureteral stone with hydronephrosis. He reports that in the past he was able to pass is kidney stones on his own. He is concerned about passing a kidney stone due to having to urethral openings. He states that he had surgery on his urethra when he was a small child. He does have a history of chronic kidney disease with his creatinine earlier in the year ranging between 1.3-1.6. His most recent outpatient creatinine in October was 2.8. The patient has not taken any ibuprofen, naproxen which would cause worsening renal function. He states that he does not want any treatment with any narcotic medications whatsoever due to his history of IV drug abuse. He is congratulated on the fact that he has abstained from both alcohol and opiates abuse for over 30 years. He states that he has been compliant with his insulin but his glucoses randomly become elevated. He told nursing staff that his glucoses were up in the 500s last week. He has been having some Accu-Cheks that were so high that they would not read on the glucometer. He stated that last week he had a few days where his sugars were in the 160 range. His glucose when he came to the ER today was 381. He has longstanding hypothyroidism that is uncontrolled with his last TSH reading greater than 100 on the 14 of December. His hemoglobin A1c in May was 11.8 and in October was 7.3. Review of Systems 2 Review of Systems: 12 systems were reviewed with pertinent positives and negatives per HPI. Except as documented in the HPI, all other systems were reviewed and are negative. [facility] Past Medical History Medical History (Updated 12/16/24 @ 01:12 by Maggie Fuentes DO) CAD (coronary artery disease), autologous vein bypass graft CKD (chronic kidney disease) stage 3, GFR 30-59 ml/min Chronic obstructive pulmonary disease Hypertriglyceridemia Erectile dysfunction Vitamin D deficiency Tardive dyskinesia Suicide ideation With most recent hospitalization May 2024 Unspecified atherosclerosis of [place] arteries of extremities, bilateral legs Intravenous drug abuse in remission In remission since 1986 Posttraumatic stress disorder Kidney stones Pancreatitis Diverticulitis Obstructive sleep apnea Intolerant to CPAP Gastroesophageal reflux disease Postablative hypothyroidism Status post radioactive iodine ablation in 1974 Diabetic peripheral neuropathy Insulin dependent type 2 diabetes mellitus Coronary artery disease Hypertension (~2009) Anxiety Depression Recovering alcoholic quit drinking in 1987 Hyperlipidemia Surgical History Surgical History History of coronary artery stent placement History of cardiac catheterization History of inguinal hernia repair History of cholecystectomy History of coronary artery bypass graft x 1 (11/2009) History of cervical spinal surgery C4-C5 C6-C7 laminectomy and fusion Family History Family History Father Diabetes mellitus Heart disease Mother Heart disease Cerebrovascular accident Diabetes mellitus Dementia Unknown Hypertension Cancer Social History Social History (Updated 12/16/24 @ 00:55 by Maggie Fuentes DO) Social History: Surrogate medical decision maker: Brandon Schaefer, brother ([phone]). Code status: Full code. Smoking packs per day: 2 Smoking cigarettes per day: 40.0 Years smoked: 35 Smoking pack-years: 70.00 Smoking status: Former smoker Tobacco type: cigarettes Second hand tobacco smoke exposure: No Smoking end date: 06/28/09 Alcohol intake: former Alcohol use details: Heavy drinker until 1989. Substance use: former Substance use type: opiates and IV drugs Last use: 1987 Do You Feel Safe in your Home?: Yes Lack of Transportation: YES Lack of Food: Sometimes True Current Housing: I Have Housing Concerned About Future Housing: YES Difficulty Paying Gas/Electric Bills: YES Difficulty Paying for Meds: YES Currently Unemployed: No Education: Associate Degree Difficulty w/ Childcare or Family Care: No Living arrangements: other Additional living arrangements comments: low income apartment Occupation/Education: unemployed Additional occupation/education comments: Lost job in late April,. He is on disability due to his psychiatric illness. 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 Spiritual care concerns: No Agree to blood products: Yes Meds Home Medications and Allergies Home Medications ?Medication ?Instructions ?Recorded ?Confirmed ?Type fluoxetine 40 mg capsule 40 mg PO DAILY 08/13/2211/29 History nitroglycerin 0.4 mg sublingual 0.4 mg sublingual Q5M PRN Chest 10/11/23 12/15/24 Rx tablet Pain #100 tabs omeprazole 40 mg capsule,delayed See Rx Instructions . Route 10/18/23 12/15/24 Rx release .COMPLEX #90 caps omega 2-oxh-hef-fish oil 1,000 mg 2 cap PO DAILY 10/2012/15/24 History (120 mg-180 mg) capsule (Fish Oil) pen needle, diabetic 31 gauge x #100 ea 02/21/2412/15 Rx 07/14 deutetrabenazine 9 mg tablet 9 mg PO BID 03/07/2411/29 History (Austedo) insulin admin supplies (Autopen 2 #1 ea 06/13/2412/15 Rx to 42 units subcutaneous) rosuvastatin 40 mg tablet See Rx Instructions .Route 0 06/19/24 12/15/24 Rx .COMPLEX #90 tabs torsemide 20 mg tablet See Rx Instructions .Route 0 06/19/24 12/15/24 Rx .COMPLEX #90 tabs losartan 25 mg tablet See Rx Instructions .Route 0 06/29/24 12/15/24 Rx .COMPLEX #90 tabs primidone 250 mg tablet See Rx Instructions .Route 0 06/29/24 12/15/24 Rx .COMPLEX #90 tabs brexpiprazole 1 mg tablet (Rexulti) 2 mg PO DAILY 07/3112/15/24 History cholecalciferol (vitamin D3) 1,250 1,250 mcg PO WEEKLY #12 caps 08/23/24 12/15/24 Rx mcg (50,000 unit) capsule tirzepatide 15 mg/0.5 mL 15 mg (0.5 mL) subcut WEEKLY #2 mL 08/23/24 12/15/24 Rx subcutaneous pen injector ([place]elmi[place]) gabapentin 800 mg tablet See Rx Instructions .Route 0 09/20/24 12/15/24 Rx .COMPLEX #270 tabs levothyroxine 200 mcg tablet See Rx Instructions .Rout e 10/16/24 12/15/24 Rx .COMPLEX #90 tabs levothyroxine 25 mcg tablet See Rx Instructions .Route 10/16/24 12/15/24 Rx .COMPLEX #90 tabs metoprolol succinate 25 mg 12.5 mg (1/2 x 25 mg) PO DA SORIN #90 10/18/24 12/15/24 Rx tablet,extended release 24 hr tabs insulin glargine 100 unit/mL (3 See Rx Instructions .R oute 12/12/24 12/15/24 Rx mL) subcutaneous pen (Lantus .COMPLEX #15 mL Solostar U-100 Insulin) duloxetine 30 mg capsule,delayed 30 mg PO DAILY 12/15/24 History release duloxetine 60 mg capsule,delayed 60 mg PO DAILY 12/15/24 History release trazodone 50 mg tablet 50 mg PO HS 12/15/24 5 History Allergies Allergy/AdvReac Type Severity Reaction Status Date / Time metformin AdvReac Intermediate Unknown Verified 12/15/24 22:55 Vital Signs Vital Signs - 24 hr 12/15/24 18:29 12/15/24 20:15 12/15/24 20:45 Temperature 97.8 F Pulse Rate 100 97 95 Respiratory Rate 16 18 20 Blood Pressure 174/110 H 173/102 H 166/109 H Pulse Oximetry 99 98 99 Oxygen Delivery Room Air 12/15/24 21:15 12/15/24 21:55 12/15/24 22:24 Temperature Pulse Rate 88 86 89 Respiratory Rate 18 18 20 Blood Pressure 186/128 H 203/123 H 191/120 H Pulse Oximetry 100 100 96 Oxygen Delivery 12/16/24 00:04 Temperature 98.1 F Pulse Rate 87 Respiratory Rate 20 Blood Pressure 180/113 H Pulse Oximetry 99 Oxygen Delivery Exam 2 Narrative: Weight 100 kg BMI 31.6 Const: Other: No acute distress, obese, appears stated age HENMT: Other: Head is normocephalic atraumatic, mucous membranes are tacky, no oral pharyngeal erythema, crowded posterior oropharynx Eyes: Other: Pupils are equal and reactive, no scleral icterus, no conjunctival pallor Neck: Other: Large neck circumference, no lymphadenopathy Resp: Other: Clear to auscultation bilaterally, no increased work of breathing Cardio: Other: Regular rate, regular rhythm, 2+ bilateral radial pedal pulses, no JVD GI: Other: Soft, nondistended, nontender, hypoactive bowel sounds Skin: Other: No jaundice, no pallor, no foot wounds Neuro: Other: Patient is alert oriented x4, speech is clear, Patient has tremor of all extremities, as tremor of the tongue, his no facial asymmetry, cranial nerves appear to be grossly intact, no gross motor deficits noted during the course of conversation Extrem: Other: No clubbing, cyanosis or edema, no foot wounds Psych: Other: Flat affect, depressed mood, pleasant, cooperative H&P: Results Labs Labs: Laboratory Tests 12/15/24 19:04 12/15/24 19:04 12/15/24 12/15/24 12/15/24 19:04 20:43 22:32 WBC 15.2 H RBC 5.52 Hgb 15.8 D Hct 43.0 MCV 77.9 L MCH 28.6 MCHC 36.7 H RDW 12.7 Plt Count 290 D MPV 10.4 Immature Gran % (Auto) 0.5 Neut % (Auto) 76.3 H Lymph % (Auto) 16.7 L [place] % (Auto) 5.7 Eos % (Auto) 0.4 Baso % (Auto) 0.4 Lymph # (Auto) 2.53 [place] # (Auto) 0.9 H Eos # (Auto) 0.1 Baso # (Auto) 0.1 Abs Immat Gran (auto) 0.08 H Absolute Neuts (auto) 11.6 H Absolute Nucleated RBC 0.000 Nucleated RBC % 0.0 Sodium 134 L Potassium 3.0 L Chloride 89 L Carbon Dioxide 25 Anion Gap 20 H BUN 53 H D Creatinine 3.55 H Estim Creat Clear Calc 23 Estimated GFR 17 L Glucose 381 H POC Capillary Glucose 310 H Lactic Acid 1.8 Calcium 9.5 Phosphorus 3.7 Magnesium 1.6 Total Bilirubin 1.0 AST 36 ALT 57 H Alkaline Phosphatase 116 Total Protein 9.4 H Albumin 5.2 H Lipase 105 Urine Color Yellow Urine Appearance Cloudy H Urine pH 5.5 Ur Specific [place] 1.011 Urine Protein 1+ H Urine Glucose (UA) Trace H Urine Ketones Negative Ur Blood (Man) 1+ H Urine Nitrate Negative Urine Bilirubin Negative Urine Urobilinogen 1.0 Add Ur Microanalysis Reviewed Leukocyte Esterase Rfl Negative Urine RBC 0-2 Urine WBC 0-5 Ur Squamous Epith Cells None seen Urine Bacteria None seen Urine Casts 6-10 12/15/24 23:38 WBC RBC Hgb Hct MCV MCH MCHC RDW Plt Count MPV Immature Gran % (Auto) Neut % (Auto) Lymph % (Auto) [place] % (Auto) Eos % (Auto) Baso % (Auto) Lymph # (Auto) [place] # (Auto) Eos # (Auto) Baso # (Auto) Abs Immat Gran (auto) Absolute Neuts (auto) Absolute Nucleated RBC Nucleated RBC % Sodium Potassium Chloride Carbon Dioxide Anion Gap BUN Creatinine Estim Creat Clear Calc Estimated GFR Glucose POC Capillary Glucose 287 H Lactic Acid Calcium Phosphorus Magnesium Total Bilirubin AST ALT Alkaline Phosphatase Total Protein Albumin Lipase Urine Color Urine Appearance Urine pH Ur Specific [place] Urine Protein Urine Glucose (UA) Urine Ketones Ur Blood (Man) Urine Nitrate Urine Bilirubin Urine Urobilinogen Add Ur Microanalysis Leukocyte Esterase Rfl Urine RBC Urine WBC Ur Squamous Epith Cells Urine Bacteria Urine Casts Impressions Abdomen/Pelvis CT 12/15/24 19:29 IMPRESSION: Right hydronephrosis secondary to a 9.6 mm stone in the proximal right ureter. Assessment and Plan Assessment and plan (1) Hydronephrosis with urinary obstruction due to ureteral calculus: Code(s): N13.2 - Hydronephrosis with renal and ureteral calculous obstruction Status: Acute (2) Acute kidney injury superimposed on stage 3a chronic kidney disease: Code(s): N17.9 - Acute kidney failure, unspecified; N18.31 - Chronic kidney disease, stage 3a Status: Acute (3) Acute dehydration: Code(s): E86.0 - Dehydration Status: Acute (4) Uncontrolled hypertension: Code(s): I10 - Essential (primary) hypertension Status: Acute (5) Type 2 diabetes mellitus with hyperglycemia, with long-term current use of insulin: Code(s): E11.65 - Type 2 diabetes mellitus with hyperglycemia; 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 Status: Acute (6) Acute hypokalemia: Code(s): E87.6 - Hypokalemia Status: Acute (7) Gastroesophageal reflux disease: Qualifiers: Esophagitis presence: esophagitis presence not specified Qualified Code(s): K21.9 - Gastro-esophageal reflux disease without esophagitis Code(s): K21.9 - Gastro-esophageal reflux disease without esophagitis Status: Acute (8) Depression: Qualifiers: Depression Type: unspecified Qualified Code(s): F32.9 - Major depressive disorder, single episode, unspecified Code(s): F32.9 - Major depressive disorder, single episode, unspecified Status: Acute Plan Patient has an obstructing proximal right ureteral stone with mild hydronephrosis. Patient is NPO for cystoscopy in ureteral stent placement by Urology in a.m.. Patient does have some leukocytosis but UA is not suggestive of infection. Patient did receive 1 dose of Rocephin in the ER butl hold off on additional antibiotic therapy. Will monitor urine output closely and repeat CBC in a.m. Patient has acute kidney injury on chronic kidney disease likely multifactorial due to obstructing kidney stone and complicated by acute dehydration,. Dehydration and multifactorial due to decreased oral intake and uncontrolled diabetes with hyperglycemia. Patient received 2 L IV fluid bolus. Will continue IV fluid hydration at 150 mL an hour. Will monitor strict I&O's and daily weights. Will hold patient's home angiotensin receptor maulik and diuretic therapy. Will repeat CBC in a.m.. Patient does have hypokalemia. 40 mEq potassium chloride tablet was ordered. The patient reports that since he has received oral potassium he has had some heartburn. Will hold off on giving the patient any insulin therapy given his hypokalemia. Will repeat BMP in a.m. and resume insulin therapy once stability of potassium is been verified. Patient has type 2 diabetes mellitus with hyperglycemia in setting of long-term insulin use. His most recent A1c was not all that elevated but he has a longstanding history of poorly controlled diabetes. Will resume home Lantus once it is confirmed that the patient's potassium is back within the normal range. Glucoses have improved with IV fluid hydration. Will continue Accu- Cheks q.6 hours while NPO in then switched to Accu-Cheks a.c. HS once diet is resumed. Hypoglycemia protocol has been ordered as needed. The patient reports GERD symptoms since potassium ingestion. Will give the patient 1 dose of IV Pepcid. Will resume the patient's home PPI therapy. Will also get GI cocktail x1 and Maalox as needed for recurrent heartburn. Will resume the patient's home psychiatric medications. Will send home medications for tardive dyskinesia and depression down to the pharmacy for verification. MEDICAL DECISION MAKING NARRATIVE -Spoke with the ED provider in detail regarding patient's evaluation, workup and management -Patient seen and examined at bedside -Collaborated with patient's nurse at the bedside in detail and addressed all concerns -Labs, electrolytes, radiology, investigations and test results personally reviewed and interpreted unless otherwise specified -ED/Consult/Nursing/Ancilliary notes on the chart reviewed and appreciated -Spoke with patient at bedside and diagnosis and plan of care was discussed. All questions answered.
[2024-12-16] VITALS (21 sets, daily range): BP systolic 94–180; BP diastolic 66–113; PULSE 64–92; RESP 14–20; TEMP 36.1–36.7; O2SAT 95–100
[2024-12-16] MEDS: MAGNESIUM SULF 2 GM/WATER 50ML 2 GM/50 ML BAG IVPB (00:27)
[2024-12-16] MEDS: ACETAMINOPHEN 325 MG TABLET 650 MG PO ×3 (00:28→09:53)
[2024-12-16] MEDS: FAMOTIDINE 20 MG/2 ML VIAL IV PUSH (00:41)
[2024-12-16] MEDS: BELLADONNA ALK/PHENOB ELIX 10 ML, MAG HYDROX/ALUMINUM HYD/SIMETH 30 ML, LIDOCAINE 2% VI... PO (00:41)
--- NOTE | 2024-12-16 05:06 | PHAR ---
VERIFIED individual pills using Micromedex of the following from [facility] pharmacy dosing card: Brexpiprazole [Rexulti] 1 mg tablet TAKE 1 TABLET BY MOUTH ONCE DAILY & Deutetrabenazine [Austedo] 9 mg tablet TAKE 2 TABLETS BY MOUTH TWICE A DAY Only one days worth of meds sent to pharmacy for verification. Will need more for 12/17 doses.
[2024-12-16 06:05] LABS: Hematocrit 38.8 % (42.0-52.0); Hemoglobin 13.7 g/dL (14.0-18.0); Mean Corpuscular HGB Conc 35.3 g/dl (32-36); Mean Corpuscular Hemoglobin 28.0 pg (26-34); Mean Corpuscular Volume 79.3 fl (80-100); Platelet Count Result 221 k/mm3 (150-375); Red Blood Count 4.89 M/mm3 (4.6-6.20); White Blood Count 12.2 K/mm3 (4.5-10.0)
[2024-12-16] MEDS: LEVOTHYROXINE SODIUM 100 MCG TABLET 200 MCG PO (06:11)
[2024-12-16] MEDS: LEVOTHYROXINE SODIUM 75 MCG TABLET PO (06:11)
[2024-12-16 06:27] LABS: Anion Gap 14 mmol/L (4-12); Blood Urea Nitrogen 48 mg/dL (9-20); Calcium 8.9 mg/dL (8.4-10.2); Carbon Dioxide 26 mmol/L (22-30); Chloride 94 mmol/L (98-107); Estimated CRCL calculation 26 ml/min; Estimated Glomerular Filt Rate 20; Glucose 195 mg/dL (65-110); Potassium 2.7 mmol/L (3.4-5.0); Sodium 134 mmol/L (137-145)
--- NOTE | 2024-12-16 08:12 | P.PNIM_ITS ---
Progress Note: A&P Assessment and Plan (1) Hydronephrosis with urinary obstruction due to ureteral calculus: Code(s): N13.2 - Hydronephrosis with renal and ureteral calculous obstruction Status: Acute (2) Acute kidney injury superimposed on stage 3a chronic kidney disease: Code(s): N17.9 - Acute kidney failure, unspecified; N18.31 - Chronic kidney disease, stage 3a Status: Acute (3) Acute dehydration: Code(s): E86.0 - Dehydration Status: Acute (4) Uncontrolled hypertension: Code(s): I10 - Essential (primary) hypertension Status: Acute (5) Type 2 diabetes mellitus with hyperglycemia, with long-term current use of insulin: Code(s): E11.65 - Type 2 diabetes mellitus with hyperglycemia; Z79.4 - FDC (current) use of insulin Status: Acute (6) Acute hypokalemia: Code(s): E87.6 - Hypokalemia Status: Acute (7) Gastroesophageal reflux disease: Qualifiers: Esophagitis presence: esophagitis presence not specified Qualified Code(s): K21.9 - Gastro-esophageal reflux disease without esophagitis Code(s): K21.9 - Gastro-esophageal reflux disease without esophagitis Status: Acute (8) Depression: Qualifiers: Depression Type: unspecified Qualified Code(s): F32.9 - Major depressive disorder, single episode, unspecified Code(s): F32.9 - Major depressive disorder, single episode, unspecified Status: Acute Plan Patient has an obstructing proximal right ureteral stone with mild hydronephrosis. Patient is NPO for cystoscopy in ureteral stent placement by Urology in a.m.. Patient does have some leukocytosis but UA is not suggestive of infection. Patient did receive 1 dose of Rocephin in the ER butl hold off on additional antibiotic therapy. Will monitor urine output closely and repeat CBC in a.m. Patient has acute kidney injury on chronic kidney disease likely multifactorial due to obstructing kidney stone and complicated by acute dehydration,. Dehydration and multifactorial due to decreased oral intake and uncontrolled diabetes with hyperglycemia. Patient received 2 L IV fluid bolus. Will continue IV fluid hydration at 150 mL an hour. Will monitor strict I&O's and daily weights. Will hold patient's home angiotensin receptor maulik and diuretic therapy. Will repeat CBC in a.m.. Patient does have hypokalemia. 40 mEq potassium chloride tablet was ordered. The patient reports that since he has received oral potassium he has had some heartburn. Will hold off on giving the patient any insulin therapy given his hypokalemia. Will repeat BMP in a.m. and resume insulin therapy once stability of potassium is been verified. Patient has type 2 diabetes mellitus with hyperglycemia in setting of long-term insulin use. His most recent A1c was not all that elevated but he has a longstanding history of poorly controlled diabetes. Will resume home Lantus once it is confirmed that the patient's potassium is back within the normal range. Glucoses have improved with IV fluid hydration. Will continue Accu- Cheks q.6 hours while NPO in then switched to Accu-Cheks a.c. HS once diet is resumed. Hypoglycemia protocol has been ordered as needed. The patient reports GERD symptoms since potassium ingestion. Will give the patient 1 dose of IV Pepcid. Will resume the patient's home PPI therapy. Will also get GI cocktail x1 and Maalox as needed for recurrent heartburn. Will resume the patient's home psychiatric medications. Will send home medications for tardive dyskinesia and depression down to the pharmacy for verification. Hydronephrosis with urinary obstruction due to ureteral calculus - Abd/pevlis CT: Right hydronephrosis secondary to a 9.6 mm stone in the proximal right ureter. - UA: Not indicative of urinary tract infection - Urology consulted - NPO, plan for cystoscopy with stent placement NAS - likely secondary to obstructing proximal right ureteral stone - Cr on admission: 3.55 - 12/16, Cr 3.18 - Stent removal today, continue IVF hydration Hypokalemia - 3.0 on admission. 2.7 on am labs on 12/16 - 80 meq oral + 40meq K rider ordered by overnight provider - Recheck K in afternoon, continue supplementation as needed Heartburn - Endorsed GERD like symptoms since K ingestion - Received 1 dose IV Pepcid - Resume patients at home PPI therapy - GI cocktail x1, Maalox as needed Type 2 Diabetes - Will resume lantus once K has normalized - Glucoses have been in the high 100s, low 200s since admission - Hypoglycemic protocol - Correct K and start insulin as appropriate, low dose SSI Tardive dyskinesia/Depression/PTSD - Restart at home medications once verified Hypertension - Restart antihypertensive after procedure CAD - Restart statin after procedure Hypothyroidism - Restart meds after procedure Subjective Date/time seen: 12/16/24 08:12 Interval history: 64-year-old male with a past medical history of chronic kidney disease, treatment resistant depression, PTSD, tardive dyskinesia, uncontrolled diabetes mellitus with diabetic peripheral neuropathy, essential hypertension, coronary artery disease with 1 vessel bypass, GERD and hypothyroidism who presented to the ER with complaints of spasming pain in his abdomen. 12/16/2024 Patient sitting comfortably in bed at time of examination. Denies any pain or complaints at this time besides being hungry. Urology consulted regarding ureteral stone. Plan for cystoscopy today. Potassium 2.7, supplementation ordered by overnight provider. Glucose 195 on morning labs. NAS improving, continue IVFs. Review of Systems Review of Systems: 12 systems were reviewed with pertinent positives and negatives per HPI. Except as documented in the HPI, all other systems were reviewed and are negative. Exam Narrative: Weight 100 kg BMI 31.6 Const: Other: No acute distress, obese, appears stated age HENMT: Other: Head is normocephalic atraumatic, mucous membranes are tacky, no oral pharyngeal erythema, crowded posterior oropharynx Eyes: Other: Pupils are equal and reactive, no scleral icterus, no conjunctival pallor Neck: Other: Large neck circumference, no lymphadenopathy Resp: Other: Clear to auscultation bilaterally, no increased work of breathing Cardio: Other: Regular rate, regular rhythm, 2+ bilateral radial pedal pulses, no JVD GI: Other: Soft, nondistended, nontender, hypoactive bowel sounds Skin: Other: No jaundice, no pallor, no foot wounds Neuro: Other: Patient is alert oriented x4, speech is clear, Patient has tremor of all extremities, as tremor of the tongue, his no facial asymmetry, cranial nerves appear to be grossly intact, no gross motor deficits noted during the course of conversation Extrem: Other: No clubbing, cyanosis or edema, no foot wounds Psych: Other: Flat affect, depressed mood, pleasant, cooperative Objective Data Vital Signs Vital Signs: Vital Signs - 24 hr 12/15/24 18:29 12/15/24 20:15 12/15/24 20:45 Temperature 97.8 F Pulse Rate 100 97 95 Respiratory Rate 16 18 20 Blood Pressure 174/110 H 173/102 H 166/109 H Pulse Oximetry 99 98 99 Oxygen Delivery Room Air 12/15/24 21:15 12/15/24 21:55 12/15/24 22:02 Temperature Pulse Rate 88 86 Respiratory Rate 18 18 Blood Pressure 186/128 H 203/123 H Pulse Oximetry 100 100 Oxygen Delivery Room Air 12/15/24 22:24 12/16/24 00:00 12/16/24 00:04 Temperature 98.1 F Pulse Rate 89 90 87 Respiratory Rate 20 20 Blood Pressure 191/120 H 180/113 H Pulse Oximetry 96 99 Oxygen Delivery 12/16/24 04:00 12/16/24 06:00 Temperature 97.9 F Pulse Rate 92 80 Respiratory Rate 18 Blood Pressure 146/84 H Pulse Oximetry 96 Oxygen Delivery Intake/Output Intake/Output: Intake & Output 12/13/24 12/14/24 12/15/24 12/16/24 23:59 23:59 23:59 23:59 Intake Total 2050 0 Output Total 450 Balance 2050 -450 Meds/Results Medications: Active Medications Generic Name Dose Route Start Last Admin Trade Name Freq PRN Reason Stop Dose Admin Acetaminophen 650 mg 12/15/24 20:58 12/16/24 06:11 Acetaminophen 325 Mg Tablet PO 650 mg Q4H PRN Administration Mild Pain (1-3) or Fever Hydrocodone Bitart/Acetaminophen 1 tab 12/15/24 20:58 Hydrocodone/Acetaminophen (*Crx) 5-325 Mg Tablet PO Q4H PRN Pain Rated 4-6 Al Hydrox/Mg Hydrox/Simethicone 30 ml 12/16/24 00:25 Mag Hydrox/Al Hydrox/Simeth 30 Ml Udc PO Q6H PRN Indigestion Dextrose 12.5 gm 12/15/24 22:02 Dextrose 50% 25 Gm/50 Ml Syringe IV PUSH PRN PRN Hypoglycemia Protocol Duloxetine HCl 30 mg 12/16/24 09:00 Duloxetine Hcl 30 Mg Capsule.Dr PO DAILY [facility] Duloxetine HCl 60 mg 12/16/24 09:00 Duloxetine Hcl 60 Mg Capsule. PO DAILY [facility] Fish Oil 1 gm 12/16/24 09:00 [place] 3 Polyunsat Fatty Acids 1 Gm Cap PO DAILY [facility] Fluoxetine HCl 40 mg 12/16/24 09:00 Fluoxetine Hcl 20 Mg Capsule PO DAILY [facility] Gabapentin 400 mg 12/16/24 09:00 Gabapentin 400 Mg Capsule PO TID [facility] Glucagon 1 mg 12/15/24 22:02 Glucagon For Inj 1 Mg Vial IM PRN PRN Hypoglycemia Protocol Glucose 15 gm 12/15/24 22:02 Glucose Oral Gel 15 Gm Of Glucse In 37.5 Gm Tube PO PRN PRN Hypoglycemia Protocol Hydralazine HCl 10 mg 12/15/24 22:57 12/16/24 00:29 Hydralazine Hcl 20 Mg/Ml Vial IV PUSH 10 mg Q4H PRN Administration SBP greater than 160 Hydromorphone HCl 0.5 mg 12/15/24 20:58 Hydromorphone Hcl Inj (*Crx) 1 Mg/Ml Syr IV PUSH Q4H PRN Pain Rated 7-10 Lactated Ringer's 1,000 mls @ 150 mls/hr 12/15/24 21:00 12/15/24 22:46 Lr - Lactated Ringers Iv IV CONT 150 mls/hr .Q6H40M JAZMÍN Administration Dextrose 1,000 mls @ 100 mls/hr 12/15/24 22:02 Dextrose 5% 1,000 Ml IVPB PRN PRN Hypoglycemia Protocol Potassium Chloride 40 meq/ 520 mls @ 130 mls/hr 12/16/24 06:55 Sodium Chloride IVPB 12/16/24 10:54 ONCE ONE Potassium Chloride 10 meq/ 505 mls @ 130 mls/hr 12/16/24 08:08 Sodium Chloride IVPB 12/16/24 12:01 ONCE ONE Levothyroxine Sodium 200 mcg 12/16/24 06:30 12/16/24 06:11 Levothyroxine Sodium 100 Mcg Tablet PO 200 mcg DAILY@0630 JAZMÍN Administration Levothyroxine Sodium 75 mcg 12/16/24 06:30 12/16/24 06:11 Levothyroxine Sodium 75 Mcg Tablet PO 75 mcg DAILY@0630 JAZMÍN Administration Metoprolol Succinate 12.5 mg 12/16/24 09:00 Metoprolol Succinate Ext Rel 12.5 Mg Tabcr PO DAILY JAZMÍN Home Med ( 1 mg 12/16/24 09:00 Brexpiprazole [ PO 01/15/25 08:59 Rexulti] 1 Mg Tablet DAILY [facility] ) Home Med ( 18 mg 12/16/24 09:00 Deutetrabenazine [ PO 01/15/25 08:59 [place]] 9 Mg Tablet BID [facility] ) Ondansetron HCl 4 mg 12/15/24 20:58 Ondansetron Inj 4 Mg/2 Ml Vial IV PUSH Q4H PRN Nausea Pantoprazole Sodium 40 mg 12/16/24 09:00 Pantoprazole 40 Mg Tablet PO BID JAZMÍN Potassium Chloride 20 meq 12/16/24 08:08 Potassium Chloride 20 Meq Er Tablet PO 12/16/24 08:09 ONCE ONE Primidone 250 mg 12/16/24 09:00 Primidone 250 Mg Tablet PO DAILY [facility] Rosuvastatin Calcium 20 mg 12/16/24 09:00 Rosuvastatin 20 Mg Tablet PO DAILY JAZ[facility] Trazodone HCl 50 mg 12/16/24 00:30 12/16/24 00:40 Trazodone Hcl 50 Mg Tablet PO 50 mg HS JAZMÍN Administration Radiology Results: ITS Impressions Abdomen/Pelvis CT 12/15/24 19:29 IMPRESSION: Right hydronephrosis secondary to a 9.6 mm stone in the proximal right ureter. All CT scans at this facility are performed using low dose modulation techniques as appropriate to perform exam including the following: automated exposure control; use of iterative reconstruction technique; adjustment of the mA and/or kV according to patient size (this includes techniques or standardized protocols for targeted exams where dose is matched to indication/reason for exam). Labs Labs: Laboratory Results - last 24 hr 12/15/24 12/15/24 12/15/24 19:04 20:43 22:32 WBC 15.2 H RBC 5.52 Hgb 15.8 D Hct 43.0 MCV 77.9 L MCH 28.6 MCHC 36.7 H RDW 12.7 Plt Count 290 D MPV 10.4 Immature Gran % (Auto) 0.5 Neut % (Auto) 76.3 H Lymph % (Auto) 16.7 L [place] % (Auto) 5.7 Eos % (Auto) 0.4 Baso % (Auto) 0.4 Lymph # (Auto) 2.53 [place] # (Auto) 0.9 H Eos # (Auto) 0.1 Baso # (Auto) 0.1 Abs Immat Gran (auto) 0.08 H Absolute Neuts (auto) 11.6 H Absolute Nucleated RBC 0.000 Nucleated RBC % 0.0 Sodium 134 L Potassium 3.0 L Chloride 89 L Carbon Dioxide 25 Anion Gap 20 H BUN 53 H D Creatinine 3.55 H Estim Creat Clear Calc 23 Estimated GFR 17 L Glucose 381 H POC Capillary Glucose 310 H Lactic Acid 1.8 Calcium 9.5 Phosphorus 3.7 Magnesium 1.6 Total Bilirubin 1.0 AST 36 ALT 57 H Alkaline Phosphatase 116 Total Protein 9.4 H Albumin 5.2 H Lipase 105 Urine Color Yellow Urine Appearance Cloudy H Urine pH 5.5 Ur Specific [place] 1.011 Urine Protein 1+ H Urine Glucose (UA) Trace H Urine Ketones Negative Ur Blood (Man) 1+ H Urine Nitrate Negative Urine Bilirubin Negative Urine Urobilinogen 1.0 Add Ur Microanalysis Reviewed Leukocyte Esterase Rfl Negative Urine RBC 0-2 Urine WBC 0-5 Ur Squamous Epith Cells None seen Urine Bacteria None seen Urine Casts 6-10 12/15/24 12/16/24 12/16/24 23:38 05:52 07:51 WBC 12.2 H RBC 4.89 Hgb 13.7 L Hct 38.8 L MCV 79.3 L MCH 28.0 MCHC 35.3 RDW 12.9 Plt Count 221 MPV 10.5 H Immature Gran % (Auto) Neut % (Auto) Lymph % (Auto) [place] % (Auto) Eos % (Auto) Baso % (Auto) Lymph # (Auto) [place] # (Auto) Eos # (Auto) Baso # (Auto) Abs Immat Gran (auto) Absolute Neuts (auto) Absolute Nucleated RBC Nucleated RBC % Sodium 134 L Potassium 2.7 L* Chloride 94 L Carbon Dioxide 26 Anion Gap 14 H BUN 48 H Creatinine 3.18 H Estim Creat Clear Calc 26 Estimated GFR 20 L Glucose 195 H POC Capillary Glucose 287 H 200 H Lactic Acid Calcium 8.9 Phosphorus Magnesium Total Bilirubin AST ALT Alkaline Phosphatase Total Protein Albumin Lipase Urine Color Urine Appearance Urine pH Ur Specific [place] Urine Protein Urine Glucose (UA) Urine Ketones Ur Blood (Man) Urine Nitrate Urine Bilirubin Urine Urobilinogen Add Ur Microanalysis Leukocyte Esterase Rfl Urine RBC Urine WBC Ur Squamous Epith Cells Urine Bacteria Urine Casts Quality VTE Prophylaxis VTE prophylaxis: mechanical ordered
[2024-12-16] MEDS: POTASSIUM CHLORIDE INJ 40 MEQ in SODIUM CHLORIDE 0.9% IV 500 ML 130 MEQ IVPB (08:28)
[2024-12-16] MEDS: LACTATED RINGERS 1,000 ML 150 ML IV CONT ×3 (08:30→20:29)
[2024-12-16] MEDS: POTASSIUM CHLORIDE 20 MEQ ER TABLET 80 MEQ PO (09:41)
[2024-12-16] MEDS: DULoxetine HCL 60 MG CAPSULE.DR PO (09:42)
[2024-12-16] MEDS: GABAPENTIN 400 MG CAPSULE PO ×3 (09:42→20:30)
[2024-12-16] MEDS: OMEGA 3 POLYUNSAT FATTY ACIDS 1 GM CAP PO (09:42)
[2024-12-16] MEDS: ROSUVASTATIN 20 MG TABLET PO (09:42)
[2024-12-16] MEDS: PRIMIDONE 250 MG TABLET PO (09:43)
[2024-12-16] MEDS: PANTOPRAZOLE 40 MG TABLET PO ×2 (09:43→17:04)
[2024-12-16] MEDS: METOPROLOL SUCCINATE EXT REL 12.5 MG TABCR PO (09:53)
[2024-12-16] MEDS: DEUTETRABENAZINE 9 MG 18 EACH PO ×2 (09:55→17:05)
[2024-12-16] MEDS: HOME MED (Brexpiprazole [Rexulti] 1 mg tablet) 1 EACH PO (09:58)
--- NOTE | 2024-12-16 11:30 | WPDURCON ---
Assessment and Plan Assessment and plan (1) Hydronephrosis with urinary obstruction due to ureteral calculus: Code(s): N13.2 - Hydronephrosis with renal and ureteral calculous obstruction Status: Acute Assessment and Plan: Right ureter stone with hydronephrosis Plan We discussed the need for cystoscopy with right retrograde pyelogram and stent placement. We reviewed risks of bleeding and infection. Risk of stent colic reviewed. Need for definitive stone management reviewed. He would like to proceed with the surgical intervention to relieve the obstruction from the stone. Urology Consult Note HPI Date Seen: 12/16/24 Requesting Physician: Maggie Fuentes DO Primary Care Provider: Michelle Drake APRN Consult Narrative Reason for consult: right ureter stone and renal failure Narrative: Leeroy Schaefer is a 64 year old male with right renal colic. CT scan showed a 9cm right ureter stone with hydronephrosis. I reviewed the images. On my review, I see the right 9mm stone and also stone in the right kidney. Review of Systems Review of Systems: All systems reviewed & are unremarkable except as noted in HPI and below PMFSH Past Medical History Medical History (Updated 12/16/24 @ 01:12 by Maggie Fuentes DO) CAD (coronary artery disease), autologous vein bypass graft CKD (chronic kidney disease) stage 3, GFR 30-59 ml/min Chronic obstructive pulmonary disease Hypertriglyceridemia Erectile dysfunction Vitamin D deficiency Tardive dyskinesia Suicide ideation With most recent hospitalization May 2024 Unspecified atherosclerosis of [place] arteries of extremities, bilateral legs Intravenous drug abuse in remission In remission since 1986 Posttraumatic stress disorder Kidney stones Pancreatitis Diverticulitis Obstructive sleep apnea Intolerant to CPAP Gastroesophageal reflux disease Postablative hypothyroidism Status post radioactive iodine ablation in 1974 Diabetic peripheral neuropathy Insulin dependent type 2 diabetes mellitus Coronary artery disease Hypertension (~2009) Anxiety Depression Recovering alcoholic quit drinking in 1987 Hyperlipidemia Surgical History Surgical History History of coronary artery stent placement History of cardiac catheterization History of inguinal hernia repair History of cholecystectomy History of coronary artery bypass graft x 1 (11/2009) History of cervical spinal surgery C4-C5 C6-C7 laminectomy and fusion Family History Family History Father Diabetes mellitus Heart disease Mother Heart disease Cerebrovascular accident Diabetes mellitus Dementia Unknown Hypertension Cancer Social History Social History (Updated 12/16/24 @ 00:55 by Maggie Fuentes, DO) Social History: Surrogate medical decision maker: Brandon Schaefer, brother ([phone]). Code status: Full code. Smoking packs per day: 2 Smoking cigarettes per day: 40.0 Years smoked: 35 Smoking pack-years: 70.00 Smoking status: Former smoker Tobacco type: cigarettes Second hand tobacco smoke exposure: No Smoking end date: 06/28/09 Alcohol intake: former Alcohol use details: Heavy drinker until 1989. Substance use: former Substance use type: opiates and IV drugs Last use: 1987 Do You Feel Safe in your Home?: Yes Lack of Transportation: YES Lack of Food: Sometimes True Current Housing: I Have Housing Concerned About Future Housing: YES Difficulty Paying Gas/Electric Bills: YES Difficulty Paying for Meds: YES Currently Unemployed: No Education: Associate Degree Difficulty w/ Childcare or Family Care: No Living arrangements: other Additional living arrangements comments: low income apartment Occupation/Education: unemployed Additional occupation/education comments: Lost job in late April,. He is on disability due to his psychiatric illness. 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 Spiritual care concerns: No Agree to blood products: Yes Meds Home Medications and Allergies Home Medications ?Medication ?Instructions ?Recorded ?Confirmed ?Type fluoxetine 40 mg capsule 40 mg PO DAILY 08/13/22 12/15/24 History nitroglycerin 0.4 mg sublingual 0.4 mg sublingual Q5M PRN Chest 10/11/23 12/15/24 Rx tablet Pain #100 tabs omeprazole 40 mg capsule,delayed See Rx Instructions .Route 10/18/23 12/15/24 Rx release .COMPLEX #90 caps omega [id number]-fish oil 1,000 mg 2 cap PO DAILY 10/21/23 12/15/24 History (120 mg-180 mg) capsule (Fish Oil) pen needle, diabetic 31 gauge x #100 ea 02/21/24 12/15/24 Rx 07/14 deutetrabenazine 9 mg tablet 9 mg PO BID 03/07/24 12/15/24 History ([place]) insulin admin supplies (Autopen 2 #1 ea 06/13/24 12/15/24 Rx to 42 units subcutaneous) rosuvastatin 40 mg tablet See Rx Instructions .Route 06/19/24 12/15/24 Rx .COMPLEX #90 tabs torsemide 20 mg tablet See Rx Instructions .Route 06/19/24 12/15/24 Rx .COMPLEX #90 tabs losartan 25 mg tablet See Rx Instructions .Route 06/29/24 12/15/24 Rx .COMPLEX #90 tabs primidone 250 mg tablet See Rx Instructions .Route 06/29/24 12/15/24 Rx .COMPLEX #90 tabs brexpiprazole 1 mg tablet (Rexulti) 2 mg PO DAILY 08/22/24 12/15/24 History cholecalciferol (vitamin D3) 1,250 1,250 mcg PO WEEKLY #12 caps 08/23/24 12/15/24 Rx mcg (50,000 unit) capsule tirzepatide 15 mg/0.5 mL 15 mg (0.5 mL) subcut WEEKLY #2 mL 08/23/24 12/15/24 Rx subcutaneous pen injector ([place]) gabapentin 800 mg tablet See Rx Instructions .Route 09/20/24 12/15/24 Rx .COMPLEX #270 tabs levothyroxine 200 mcg tablet See Rx Instructions .Route 10/16/24 12/15/24 Rx .COMPLEX #90 tabs levothyroxine 25 mcg tablet See Rx Instructions .Route 10/16/24 12/15/24 Rx .COMPLEX #90 tabs metoprolol succinate 25 mg 12.5 mg (1/2 x 25 mg) PO DAILY #90 10/18/24 12/15/24 Rx tablet,extended release 24 hr tabs insulin glargine 100 unit/mL (3 See Rx Instructions .Route 12/12/24 12/15/24 Rx mL) subcutaneous pen (Lantus .COMPLEX #15 mL Solostar U-100 Insulin) duloxetine 30 mg capsule,delayed 30 mg PO DAILY 12/15/24 12/15/24 History release duloxetine 60 mg capsule,delayed 60 mg PO DAILY 12/15/24 12/15/24 History release trazodone 50 mg tablet 50 mg PO HS 12/15/24 12/15/24 History Allergies Allergy/AdvReac Type Severity Reaction Status Date / Time metformin AdvReac Intermediate Unknown Verified 12/15/24 22:55 Vital Signs Vital Signs - 24 hr 12/15/24 18:29 12/15/24 20:15 12/15/24 20:45 Temperature 36.6 C Pulse Rate 100 97 95 Respiratory Rate 16 18 20 Blood Pressure 174/110 H 173/102 H 166/109 H Pulse Oximetry 99 98 99 Oxygen Delivery Room Air 12/15/24 21:15 12/15/24 21:55 12/15/24 22:02 Temperature Pulse Rate 88 86 Respiratory Rate 18 18 Blood Pressure 186/128 H 203/123 H Pulse Oximetry 100 100 Oxygen Delivery Room Air 12/15/24 22:24 12/16/24 00:00 12/16/24 00:04 Temperature 36.7 C Pulse Rate 89 90 87 Respiratory Rate 20 20 Blood Pressure 191/120 H 180/113 H Pulse Oximetry 96 99 Oxygen Delivery 12/16/24 04:00 12/16/24 06:00 12/16/24 08:00 Temperature 36.6 C Pulse Rate 92 80 64 Respiratory Rate 18 Blood Pressure 146/84 H Pulse Oximetry 96 Oxygen Delivery 12/16/24 09:53 12/16/24 10:00 Temperature 36.1 C L Pulse Rate 81 Respiratory Rate 20 Blood Pressure 147/85 H Pulse Oximetry 97 Oxygen Delivery Exam Const: General: comfortable and no acute distress Eyes: General: appearance normal, both eyes and all related structures Resp: Effort & Inspection: normal respiratory effort Skin: General skin exam: normal color Neuro: Speech: normal speech Psych: Speech and movement: Normal speech and movement present Results Labs 12/16/24 05:52 12/16/24 05:52 Labs: Short CBC 12/15/24 12/16/24 Range/Units 19:04 05:52 WBC 15.2 H 12.2 H (4.5-10.0) K/mm3 Hgb 15.8 D 13.7 L (14.0-18.0) g/dL Hct 43.0 38.8 L (42.0-52.0) % Plt Count 290 D 221 (150-375) k/mm3 BMP 12/15/24 12/16/24 19:04 05:52 Sodium 134 L 134 L Potassium 3.0 L 2.7 L* Chloride 89 L 94 L Carbon Dioxide 25 26 BUN 53 H D 48 H Creatinine 3.55 H 3.18 H Glucose 381 H 195 H Calcium 9.5 8.9 Liver Function 12/15/24 Range/Units 19:04 Total Bilirubin 1.0 (0.2-1.3) mg/dL AST 36 (17-59) U/L ALT 57 H (6-50) U/L Alkaline Phosphatase 116 (38-126) U/L Albumin 5.2 H (3.5-5.1) g/dL Urine 12/15/24 Range/Units 20:43 Urine Color Yellow (Yellow) Urine Appearance Cloudy H (Clear) Urine pH 5.5 (5.0-9.0) Ur Specific [place] 1.011 (1.001-1.035) Urine Protein 1+ H (Negative) mg/dL Urine Glucose (UA) Trace H (Negative) mg/dL Imaging My impression: Rihgt ureter and renal stones are present with hydronephrosis
[2024-12-16] MEDS: LACTATED RINGERS 1,000 ML 30 ML IV CONT (12:00)
--- NOTE | 2024-12-16 12:07 | WPDHPUPDATE1 ---
History and Physical Update Update Date/Time: 12/16/24 12:07 History and Physical has been reviewed, including an updated exam of the patient. There are NO changes in the patient's condition. Risks, benefits, and alternatives have been discussed and questions answered. Patient agrees to proceed with procedure.
[2024-12-16] MEDS: LIDOCAINE 2% GEL UROJET 10 ML PKG MUCOUS MEM (12:25)
--- NOTE | 2024-12-16 12:36 | W.PM.PROC2 ---
Procedure Note - Detailed Date of Procedure 12/16/24 Pre-op Diagnosis Obstructing kidney stone, NAS on CKD, dehydration Post-op Diagnosis Same Procedure Performed cystoscopy with right retrograde pyelogram and stent placement Surgeon aMsoud Camp MD Anesthesia General Indications urinary obstruction Findings moderate hydronephrosis and purulent appearing urine from above the stone Description of Procedure The patient was brought to the operating room in stable condition. He received ceftriaxone in the emergency room last night. He was placed under general anesthesia. He was placed in lithotomy position and prepped and draped in sterile fashion. A 22 Portuguese cystoscope was introduced through the urethra into the bladder. The right ureter orifice was approached. A wire was placed under fluoroscopic guidance to the renal pelvis. Purulent appearing urine effluxed from the ureter. Urine was sent for culture. A open ended catheter was placed. A limited retrograde pyelogram was performed. Moderate hydronephrosis was seen. The wire was replaced. A 6Fr variable length stent was placed under direct vision and fluoroscopic guidance. Good curls were seen in the renal pelvis and bladder. The patient tolerated the procedure well. He will need to continue antibiotics under the direction of the medical service until the culture results. I have resumed the ceftriaxone started in the emergency room with the next dose planned for 24 hours after the first dose. Implants 6Fr variable length stent Estimated Blood Loss 0 Urine Output 200 Pathology None sent Complications No immediate complications Condition Stable Disposition PACU
[2024-12-16 17:14] LABS: Anion Gap 11 mmol/L (4-12); Blood Urea Nitrogen 44 mg/dL (9-20); Calcium 8.8 mg/dL (8.4-10.2); Carbon Dioxide 25 mmol/L (22-30); Chloride 98 mmol/L (98-107); Estimated CRCL calculation 26 ml/min; Estimated Glomerular Filt Rate 20; Glucose 156 mg/dL (65-110); Magnesium 2.1 mg/dL (1.6-2.3); Potassium 3.7 mmol/L (3.4-5.0); Sodium 134 mmol/L (137-145)
[2024-12-16] MEDS: cefTRIAXone 1 GM in SODIUM CHLORIDE 0.9% IV 50 ML 100 ML IVPB (20:30)
[2024-12-17] VITALS (8 sets, daily range): BP systolic 145–167; BP diastolic 79–91; PULSE 58–66; RESP 16–18; TEMP 36.2–36.8; O2SAT 98–100
[2024-12-17] MEDS: LEVOTHYROXINE SODIUM 100 MCG TABLET 200 MCG PO (06:06)
[2024-12-17] MEDS: LEVOTHYROXINE SODIUM 75 MCG TABLET PO (06:06)
--- NOTE | 2024-12-17 07:16 | PC.NURSE ---
Called exchange pt had 100ml out w clots. bladder scan showed 620ml. Dr Camp said to place swift
--- NOTE | 2024-12-17 08:52 | PC.NURSE ---
Per Dr. Camp, okay to cancel order for swift- Patient urinated 450mls of clear tea colored urine at 0830. Bladder scan post void 200mls.
[2024-12-17] MEDS: DULoxetine HCL 60 MG CAPSULE.DR PO (09:03)
[2024-12-17] MEDS: OMEGA 3 POLYUNSAT FATTY ACIDS 1 GM CAP PO (09:04)
[2024-12-17] MEDS: GABAPENTIN 400 MG CAPSULE PO ×3 (09:04→20:38)
[2024-12-17] MEDS: METOPROLOL SUCCINATE EXT REL 12.5 MG TABCR PO (09:04)
[2024-12-17] MEDS: ROSUVASTATIN 20 MG TABLET PO (09:04)
[2024-12-17] MEDS: PANTOPRAZOLE 40 MG TABLET PO ×2 (09:04→17:41)
[2024-12-17] MEDS: PRIMIDONE 250 MG TABLET PO (09:04)
[2024-12-17] MEDS: DEUTETRABENAZINE 9 MG 18 EACH PO ×2 (09:05→17:42)
[2024-12-17] MEDS: HOME MED (Brexpiprazole [Rexulti] 1 mg tablet) 1 EACH PO (09:05)
[2024-12-17] MEDS: INSULIN ASPART (*BKC) 100 UNITS/ML SUB-Q ×2 (12:34→17:41)
--- NOTE | 2024-12-17 13:37 | P.PNIM_ITS ---
Progress Note: A&P Assessment and Plan (1) Hydronephrosis with urinary obstruction due to ureteral calculus: Code(s): N13.2 - Hydronephrosis with renal and ureteral calculous obstruction Status: Acute (2) Acute kidney injury superimposed on stage 3a chronic kidney disease: Code(s): N17.9 - Acute kidney failure, unspecified; N18.31 - Chronic kidney disease, stage 3a Status: Acute (3) Acute dehydration: Code(s): E86.0 - Dehydration Status: Acute (4) Uncontrolled hypertension: Code(s): I10 - Essential (primary) hypertension Status: Acute (5) Type 2 diabetes mellitus with hyperglycemia, with long-term current use of insulin: Code(s): E11.65 - Type 2 diabetes mellitus with hyperglycemia; Z79.4 - jail (current) use of insulin Status: Acute (6) Acute hypokalemia: Code(s): E87.6 - Hypokalemia Status: Acute (7) Gastroesophageal reflux disease: Qualifiers: Esophagitis presence: esophagitis presence not specified Qualified Code(s): K21.9 - Gastro-esophageal reflux disease without esophagitis Code(s): K21.9 - Gastro-esophageal reflux disease without esophagitis Status: Acute (8) Depression: Qualifiers: Depression Type: unspecified Qualified Code(s): F32.9 - Major depressive disorder, single episode, unspecified Code(s): F32.9 - Major depressive disorder, single episode, unspecified Status: Acute Plan Patient has an obstructing proximal right ureteral stone with mild hydronephrosis. Patient is NPO for cystoscopy in ureteral stent placement by Urology in a.m.. Patient does have some leukocytosis but UA is not suggestive of infection. Patient did receive 1 dose of Rocephin in the ER butl hold off on additional antibiotic therapy. Will monitor urine output closely and repeat CBC in a.m. Patient has acute kidney injury on chronic kidney disease likely multifactorial due to obstructing kidney stone and complicated by acute dehydration,. Dehydration and multifactorial due to decreased oral intake and uncontrolled diabetes with hyperglycemia. Patient received 2 L IV fluid bolus. Will continue IV fluid hydration at 150 mL an hour. Will monitor strict I&O's and daily weights. Will hold patient's home angiotensin receptor maulik and diuretic therapy. Will repeat CBC in a.m.. Patient does have hypokalemia. 40 mEq potassium chloride tablet was ordered. The patient reports that since he has received oral potassium he has had some heartburn. Will hold off on giving the patient any insulin therapy given his hypokalemia. Will repeat BMP in a.m. and resume insulin therapy once stability of potassium is been verified. Patient has type 2 diabetes mellitus with hyperglycemia in setting of long-term insulin use. His most recent A1c was not all that elevated but he has a longstanding history of poorly controlled diabetes. Will resume home Lantus once it is confirmed that the patient's potassium is back within the normal range. Glucoses have improved with IV fluid hydration. Will continue Accu- Cheks q.6 hours while NPO in then switched to Accu-Cheks a.c. HS once diet is resumed. Hypoglycemia protocol has been ordered as needed. The patient reports GERD symptoms since potassium ingestion. Will give the patient 1 dose of IV Pepcid. Will resume the patient's home PPI therapy. Will also get GI cocktail x1 and Maalox as needed for recurrent heartburn. Will resume the patient's home psychiatric medications. Will send home medications for tardive dyskinesia and depression down to the pharmacy for verification. Hydronephrosis with urinary obstruction due to ureteral calculus - Abd/pevlis CT: Right hydronephrosis secondary to a 9.6 mm stone in the proximal right ureter. - UA: Not indicative of urinary tract infection - Urology consulted - NPO, plan for cystoscopy with stent placement NAS - likely secondary to obstructing proximal right ureteral stone - Cr on admission: 3.55 - 12/16, Cr 3.18 - Stent removal today, continue IVF hydration - will add daily labs to monitor cr/bun Hypokalemia - 3.0 on admission. 2.7 on am labs on 12/16 - 80 meq oral + 40meq K rider ordered by overnight provider - Recheck K in afternoon, continue supplementation as needed Heartburn - Endorsed GERD like symptoms since K ingestion - Received 1 dose IV Pepcid - Resume patients at home PPI therapy - GI cocktail x1, Maalox as needed Type 2 Diabetes - Will resume lantus once K has normalized - Glucoses have been in the high 100s, low 200s since admission - Hypoglycemic protocol - Correct K and start insulin as appropriate, low dose Ss add lantus and ss- adjust as needed Tardive dyskinesia/Depression/PTSD - Restart at home medications once verified Hypertension - Restart antihypertensive after procedure CAD - Restart statin after procedure Hypothyroidism - Restart meds after procedure Time Spent With Patient Time with patient: 25 - 35 minutes Subjective Date/time seen: 12/17/24 13:37 Interval history: 64-year-old male with a past medical history of chronic kidney disease, t reatment resistant depression, PTSD, tardive dyskinesia, uncontrolled diabetes mellitus with diabetic peripheral neuropathy, essential hypertension, coronary artery disease with 1 vessel bypass, GERD and hypothyroidism who presented to the ER with complaints of spasming pain in his abdomen. 12/16/2024 Patient sitting comfortably in bed at time of examination. Denies any pain or complaints at this time besides being hungry. Urology consulted regarding ureteral stone. Plan for cystoscopy today. Potassium 2.7, supplementation ordered by overnight provider. Glucose 195 on morning labs. NAS improving, continue IVFs. 12/17 cystoscopy with right retrograde pyelogram and stent placement today with DR Camp. Review of Systems Review of Systems: 12 systems were reviewed with pertinent positives and negatives per HPI. Except as documented in the HPI, all other systems were reviewed and are negative. Exam Narrative: Weight 100 kg BMI 31.6 Const: Other: No acute distress, obese, appears stated age HENMT: Other: Head is normocephalic atraumatic, mucous membranes are tacky, no oral pharyngeal erythema, crowded posterior oropharynx Eyes: Other: Pupils are equal and reactive, no scleral icterus, no conjunctival pallor Neck: Other: Large neck circumference, no lymphadenopathy Resp: Other: Clear to auscultation bilaterally, no increased work of breathing Cardio: Other: Regular rate, regular rhythm, 2+ bilateral radial pedal pulses, no JVD GI: Other: Soft, nondistended, nontender, hypoactive bowel sounds Skin: Other: No jaundice, no pallor, no foot wounds Neuro: Other: Patient is alert oriented x4, speech is clear, Patient has tremor of all extremities, as tremor of the tongue, his no facial asymmetry, cranial nerves appear to be grossly intact, no gross motor deficits noted during the course of conversation Extrem: Other: No clubbing, cyanosis or edema, no foot wounds Psych: Other: Flat affect, depressed mood, pleasant, cooperative Objective Data Vital Signs Vital Signs: Vital Signs - 24 hr 12/16/24 13:45 12/16/24 14:04 12/16/24 14:19 Temperature 97.8 F 97.5 F L Pulse Rate 78 74 74 Respiratory Rate 18 18 18 Blood Pressure 130/78 148/85 H 146/83 H Pulse Oximetry 96 99 100 Oxygen Delivery Room Air 12/16/24 14:49 12/16/24 15:49 12/16/24 16:00 Temperature 97.0 F L 97.2 F L Pulse Rate 72 65 64 Respiratory Rate 18 18 Blood Pressure 138/93 H 121/83 Pulse Oximetry 99 98 Oxygen Delivery 12/16/24 20:00 12/16/24 22:00 12/17/24 00:00 Temperature 97.2 F L Pulse Rate 65 66 61 Respiratory Rate 18 Blood Pressure 135/82 Pulse Oximetry 99 Oxygen Delivery 12/17/24 04:00 12/17/24 06:00 12/17/24 09:04 Temperature 97.1 F L Pulse Rate 59 L 63 66 Respiratory Rate 18 Blood Pressure 167/88 H Pulse Oximetry 99 Oxygen Delivery 12/17/24 09:10 Temperature Pulse Rate Respiratory Rate Blood Pressure Pulse Oximetry Oxygen Delivery Room Air Intake/Output Intake/Output: Intake & Output 12/14/24 12/15/24 12/16/24 12/17/24 23:59 23:59 23:59 23:59 Intake Total 2050 3082.5 1336 Output Total 1250 885 Balance 2049 1832.5 451 Meds/Results Medications: Active Medications Generic Name Dose Route Start Last Admin Trade Name Freq PRN Reason Stop Dose Admin Acetaminophen 650 mg 12/15/24 20:58 12/16/24 09:53 Acetaminophen 325 Mg Tablet PO 650 mg Q4H PRN Administration Mild Pain (1-3) or Fever Hydrocodone Bitart/Acetaminophen 1 tab 12/15/24 20:58 Hydrocodone/Acetaminophen (*Crx) 5-325 Mg Tablet PO Q4H PRN Pain Rated 4-6 Al Hydrox/Mg Hydrox/Simethicone 30 ml 12/16/24 00:25 Mag Hydrox/Al Hydrox/Simeth 30 Ml Udc PO Q6H PRN Indigestion Dextrose 12.5 gm 12/15/24 22:02 Dextrose 50% 25 Gm/50 Ml Syringe IV PUSH PRN PRN Hypoglycemia Protocol Duloxetine HCl 30 mg 12/16/24 09:00 12/17/24 09:04 Duloxetine Hcl 30 Mg Capsule. PO 30 mg DAILY JAZMÍN Administration Duloxetine HCl 60 mg 12/16/24 09:00 12/17/24 09:03 Duloxetine Hcl 60 Mg Capsule. PO 60 mg DAILY JAZMÍN Administration Fish Oil 1 gm 12/16/24 09:00 12/17/24 09:04 Mozelle 3 Polyunsat Fatty Acids 1 Gm Cap PO 1 gm DAILY JAZMÍN Administration Fluoxetine HCl 40 mg 12/16/24 09:00 12/17/24 09:04 Fluoxetine Hcl 20 Mg Capsule PO 40 mg DAILY JAZMÍN Administration Gabapentin 400 mg 12/16/24 21:00 12/17/24 12:34 Gabapentin 400 Mg Capsule PO 400 mg TID@0900,1300,2100 JAZMÍN Administration Glucagon 1 mg 12/15/24 22:02 Glucagon For Inj 1 Mg Vial IM PRN PRN Hypoglycemia Protocol Glucose 15 gm 12/15/24 22:02 Glucose Oral Gel 15 Gm Of Glucse In 37.5 Gm Tube PO PRN PRN Hypoglycemia Protocol Hydralazine HCl 10 mg 12/15/24 22:57 12/16/24 00:29 Hydralazine Hcl 20 Mg/Ml Vial IV PUSH 10 mg Q4H PRN Administration SBP greater than 160 Hydromorphone HCl 0.5 mg 12/15/24 20:58 Hydromorphone Hcl Inj (*Crx) 1 Mg/Ml Syr IV PUSH Q4H PRN Pain Rated 7-10 Dextrose 1,000 mls @ 100 mls/hr 12/15/24 22:02 Dextrose 5% 1,000 Ml IVPB PRN PRN Hypoglycemia Protocol Ceftriaxone Sodium 1 gm/ 50 mls @ 100 mls/hr 12/16/24 22:00 12/16/24 20:30 Sodium Chloride IVPB 100 mls/hr Q24H JAZMÍN Administration Insulin Aspart 2 - 5 units 12/17/24 12:25 12/17/24 12:34 Insulin Aspart (*Bkc) 100 Units/Ml SUB-Q 5 units TIDWM JAZMÍN Administration Protocol Insulin Glargine 20 units 12/17/24 21:00 Insulin Glargine (*Bkc) 100 Units/Ml 0.2 units/kg (20 units) SUB-Q HS JAZMÍN Levothyroxine Sodium 200 mcg 12/16/24 06:30 12/17/24 06:06 Levothyroxine Sodium 100 Mcg Tablet PO 200 mcg DAILY@0630 JAZMÍN Administration Levothyroxine Sodium 75 mcg 12/16/24 06:30 12/17/24 06:06 Levothyroxine Sodium 75 Mcg Tablet PO 75 mcg DAILY@0630 JAZMÍN Administration Metoprolol Succinate 12.5 mg 12/16/24 09:00 12/17/24 09:04 Metoprolol Succinate Ext Rel 12.5 Mg Tabcr PO 12.5 mg DAILY JAZMÍN Administration Home Med ( 1 mg 12/16/24 09:00 12/17/24 09:05 Brexpiprazole [ PO 01/15/25 08:59 1 mg Rexulti] 1 Mg Tablet DAILY JAZMÍN Administration ) Home Med ( 18 mg 12/16/24 09:00 12/17/24 09:05 Deutetrabenazine [ PO 01/15/25 08:59 18 mg Austedo] 9 Mg Tablet BID JAZMÍN Administration ) Ondansetron HCl 4 mg 12/15/24 20:58 Ondansetron Inj 4 Mg/2 Ml Vial IV PUSH Q4H PRN Nausea Pantoprazole Sodium 40 mg 12/16/24 09:00 12/17/24 09:04 Pantoprazole 40 Mg Tablet PO 40 mg BID JAZMÍN Administration Primidone 250 mg 12/16/24 09:00 12/17/24 09:04 Primidone 250 Mg Tablet PO 250 mg DAILY JAZMÍN Administration Rosuvastatin Calcium 20 mg 12/16/24 09:00 12/17/24 09:04 Rosuvastatin 20 Mg Tablet PO 20 mg DAILY JAZMÍN Administration Trazodone HCl 50 mg 12/16/24 00:30 12/16/24 20:30 Trazodone Hcl 50 Mg Tablet PO 50 mg HS JAZMÍN Administration Radiology Results: ITS Impressions Abdomen/Pelvis CT 12/15/24 19:29 IMPRESSION: Right hydronephrosis secondary to a 9.6 mm stone in the proximal right ureter. All CT scans at this facility are performed using low dose modulation techniques as appropriate to perform exam including the following: automated exposure control; use of iterative reconstruction technique; adjustment of the mA and/or kV according to patient size (this includes techniques or standardized protocols for targeted exams where dose is matched to indication/reason for exam). Labs Labs: Laboratory Results - last 24 hr 12/16/24 12/16/24 12/16/24 16:59 17:03 20:37 Sodium 134 L Potassium 3.7 Chloride 98 Carbon Dioxide 25 Anion Gap 11 BUN 44 H Creatinine 3.20 H Estim Creat Clear Calc 26 Estimated GFR 20 L Glucose 156 H POC Capillary Glucose 138 H 228 H Calcium 8.8 Magnesium 2.1 12/17/24 12/17/24 08:19 11:40 Sodium Potassium Chloride Carbon Dioxide Anion Gap BUN Creatinine Estim Creat Clear Calc Estimated GFR Glucose POC Capillary Glucose 200 H 356 H Calcium Magnesium Quality VTE Prophylaxis VTE prophylaxis: mechanical ordered
[2024-12-17 14:51] LABS: Hematocrit 34.2 % (42.0-52.0); Hemoglobin 11.7 g/dL (14.0-18.0); Mean Corpuscular HGB Conc 34.2 g/dl (32-36); Mean Corpuscular Hemoglobin 28.5 pg (26-34); Mean Corpuscular Volume 83.4 fl (80-100); Platelet Count Result 159 k/mm3 (150-375); Red Blood Count 4.10 M/mm3 (4.6-6.20); White Blood Count 9.3 K/mm3 (4.5-10.0)
[2024-12-17 15:10] LABS: Alanine Aminotransferase 72 U/L (6-50); Albumin Level 4.1 g/dL (3.5-5.1); Alkaline Phosphatase 82 U/L (38-126); Anion Gap 11 mmol/L (4-12); Aspartate Amino Transferase 68 U/L (17-59); Bilirubin,Total 0.8 mg/dL (0.2-1.3); Blood Urea Nitrogen 33 mg/dL (9-20); Calcium 8.4 mg/dL (8.4-10.2); Carbon Dioxide 23 mmol/L (22-30); Chloride 93 mmol/L (98-107); Estimated CRCL calculation 35 ml/min; Estimated Glomerular Filt Rate 28; Glucose 332 mg/dL (65-110); Potassium 4.1 mmol/L (3.4-5.0); Sodium 127 mmol/L (137-145); Total Protein 6.8 g/dL (6.3-8.2)
[2024-12-17] MEDS: LOSARTAN POTASSIUM 25 MG TABLET BY MOUTH (17:41)
--- NOTE | 2024-12-17 18:03 | P.PNUR_ITS ---
Progress Note: A&P Assessment and Plan (1) Hydronephrosis with renal calculous obstruction: Code(s): N13.2 - Hydronephrosis with renal and ureteral calculous obstruction Status: Acute Assessment and Plan: He will need definitive stone management. I will work on setting him up with a partner here at [place]. Intraoperative urine culture results are still pending. Will need culture results prior to discharge home. (2) Acute renal failure: Code(s): N17.9 - Acute kidney failure, unspecified Status: Acute Assessment and Plan: Creatinine improving with stent in place. Subjective Subjective Date/Time Seen: 12/17/24 18:03 Interval history: HE had difficulty initially voiding this AM. He has been voiding well since. No issues with the stent. Exam Narrative: He appears well in NAD Objective Data Vital Signs Vital Signs: Vital Signs - 24 hr 12/16/24 20:00 12/16/24 22:00 12/17/24 00:00 Temperature 36.2 C L Pulse Rate 65 66 61 Respiratory Rate 18 Blood Pressure 135/82 Pulse Oximetry 99 Oxygen Delivery 12/17/24 04:00 12/17/24 06:00 12/17/24 09:04 Temperature 36.2 C L Pulse Rate 59 L 63 66 Respiratory Rate 18 Blood Pressure 167/88 H Pulse Oximetry 99 Oxygen Delivery 12/17/24 09:10 12/17/24 13:42 12/17/24 14:00 Temperature 36.8 C Pulse Rate 58 L Respiratory Rate 16 Blood Pressure 145/79 H Pulse Oximetry 98 100 Oxygen Delivery Room Air Room Air Intake/Output Intake/Output: Intake & Output 12/14/24 12/15/24 12/16/24 12/17/24 23:59 23:59 23:59 23:59 Intake Total 2049 3082.5 3166 Output Total 1250 2385 Balance 2049 1832.5 781 Meds/Results Medications: Active Medications Generic Name Dose Route Start Last Admin Trade Name Freq PRN Reason Stop Dose Admin Acetaminophen 650 mg 12/15/24 20:58 12/16/24 09:53 Acetaminophen 325 Mg Tablet PO 650 mg Q4H PRN Administration Mild Pain (1-3) or Fever Hydrocodone Bitart/Acetaminophen 1 tab 12/15/24 20:58 Hydrocodone/Acetaminophen (*Crx) 5-325 Mg Tablet PO Q4H PRN Pain Rated 4-6 Al Hydrox/Mg Hydrox/Simethicone 30 ml 12/16/24 00:25 Mag Hydrox/Al Hydrox/Simeth 30 Ml Udc PO Q6H PRN Indigestion Dextrose 12.5 gm 12/15/24 22:02 Dextrose 50% 25 Gm/50 Ml Syringe IV PUSH PRN PRN Hypoglycemia Protocol Duloxetine HCl 30 mg 12/16/24 09:00 12/17/24 09:04 Duloxetine Hcl 30 Mg Capsule. PO 30 mg DAILY JAZMÍN Administration Duloxetine HCl 60 mg 12/16/24 09:00 12/17/24 09:03 Duloxetine Hcl 60 Mg Capsule. PO 60 mg DAILY JAZMÍN Administration Fish Oil 1 gm 12/16/24 09:00 12/17/24 09:04 [place] 3 Polyunsat Fatty Acids 1 Gm Cap PO 1 gm DAILY JAZMÍN Administration Fluoxetine HCl 40 mg 12/16/24 09:00 12/17/24 09:04 Fluoxetine Hcl 20 Mg Capsule PO 40 mg DAILY JAZMÍN Administration Gabapentin 400 mg 12/16/24 21:00 12/17/24 12:34 Gabapentin 400 Mg Capsule PO 400 mg TID@0900,1300,2100 JAZMÍN Administration Glucagon 1 mg 12/15/24 22:02 Glucagon For Inj 1 Mg Vial IM PRN PRN Hypoglycemia Protocol Glucose 15 gm 12/15/24 22:02 Glucose Oral Gel 15 Gm Of Glucse In 37.5 Gm Tube PO PRN PRN Hypoglycemia Protocol Hydralazine HCl 10 mg 12/15/24 22:57 12/16/24 00:29 Hydralazine Hcl 20 Mg/Ml Vial IV PUSH 10 mg Q4H PRN Administration SBP greater than 160 Hydromorphone HCl 0.5 mg 12/15/24 20:58 Hydromorphone Hcl Inj (*Crx) 1 Mg/Ml Syr IV PUSH Q4H PRN Pain Rated 7-10 Dextrose 1,000 mls @ 100 mls/hr 12/15/24 22:02 Dextrose 5% 1,000 Ml IVPB PRN PRN Hypoglycemia Protocol Ceftriaxone Sodium 1 gm/ 50 mls @ 100 mls/hr 12/16/24 22:00 12/16/24 20:30 Sodium Chloride IVPB 100 mls/hr Q24H JAZMÍN Administration Insulin Aspart 2 - 5 units 12/17/24 12:25 12/17/24 17:41 Insulin Aspart (*Bkc) 100 Units/Ml SUB-Q 5 units TIDWM JAZMÍN Administration Protocol Insulin Glargine 20 units 12/17/24 21:00 Insulin Glargine (*Bkc) 100 Units/Ml 0.2 units/kg (20 units) SUB-Q HS JAZMÍN Levothyroxine Sodium 200 mcg 12/16/24 06:30 12/17/24 06:06 Levothyroxine Sodium 100 Mcg Tablet PO 200 mcg DAILY@0630 JAZMÍN Administration Levothyroxine Sodium 75 mcg 12/16/24 06:30 12/17/24 06:06 Levothyroxine Sodium 75 Mcg Tablet PO 75 mcg DAILY@0630 JAZMÍN Administration Losartan Potassium 25 mg 12/17/24 13:40 12/17/24 17:41 Losartan Potassium 25 Mg Tablet BY MOUTH 25 mg DAILY JAZMÍN Administration Metoprolol Succinate 12.5 mg 12/16/24 09:00 12/17/24 09:04 Metoprolol Succinate Ext Rel 12.5 Mg Tabcr PO 12.5 mg DAILY JAZMÍN Administration Miscellaneous Information 1 each 12/17/24 00:01 Please Clarify Cholecalciferol Dosing XX 01/16/25 00:00 [facility]IFY [facility] Home Med ( 1 mg 12/16/24 09:00 12/17/24 09:05 Brexpiprazole [ PO 01/15/25 08:59 1 mg Rexulti] 1 Mg Tablet DAILY JAZMÍN Administration ) Home Med ( 18 mg 12/16/24 09:00 12/17/24 17:42 Deutetrabenazine [ PO 01/15/25 08:59 18 mg Austedo] 9 Mg Tablet BID JAZMÍN Administration ) Non-Formulary Medication 1,250 mcg 12/24/24 09:00 Cholecalciferol (Vitamin D3) PO 01/23/25 08:59 WEEKLY [facility] Ondansetron HCl 4 mg 12/15/24 20:58 Ondansetron Inj 4 Mg/2 Ml Vial IV PUSH Q4H PRN Nausea Pantoprazole Sodium 40 mg 12/16/24 09:00 12/17/24 17:41 Pantoprazole 40 Mg Tablet PO 40 mg BID JAZMÍN Administration Primidone 250 mg 12/16/24 09:00 12/17/24 09:04 Primidone 250 Mg Tablet PO 250 mg DAILY JAZMÍN Administration Rosuvastatin Calcium 20 mg 12/16/24 09:00 12/17/24 09:04 Rosuvastatin 20 Mg Tablet PO 20 mg DAILY JAZMÍN Administration Trazodone HCl 50 mg 12/16/24 00:30 12/16/24 20:30 Trazodone Hcl 50 Mg Tablet PO 50 mg HS JAZMÍN Administration Radiology Results: ITS Impressions Abdomen/Pelvis CT 12/15/24 19:29 IMPRESSION: Right hydronephrosis secondary to a 9.6 mm stone in the proximal right ureter. All CT scans at this facility are performed using low dose modulation techniques as appropriate to perform exam including the following: automated exposure control; use of iterative reconstruction technique; adjustment of the mA and/or kV according to patient size (this includes techniques or standardized protocols for targeted exams where dose is matched to indication/reason for exam). Labs Labs: Laboratory Results - last 24 hr 12/16/24 12/17/24 12/17/24 20:37 08:19 11:40 WBC RBC Hgb Hct MCV MCH MCHC RDW Plt Count MPV Sodium Potassium Chloride Carbon Dioxide Anion Gap BUN Creatinine Estim Creat Clear Calc Estimated GFR Glucose POC Capillary Glucose 228 H 200 H 356 H Calcium Total Bilirubin AST ALT Alkaline Phosphatase Total Protein Albumin 12/17/24 12/17/24 14:19 16:14 WBC 9.3 RBC 4.10 L Hgb 11.7 L Hct 34.2 L MCV 83.4 D MCH 28.5 MCHC 34.2 RDW 13.2 Plt Count 159 MPV 10.8 H Sodium 127 L Potassium 4.1 Chloride 93 L Carbon Dioxide 23 Anion Gap 11 BUN 33 H D Creatinine 2.34 H Estim Creat Clear Calc 35 Estimated GFR 28 L Glucose 332 H POC Capillary Glucose 270 H Calcium 8.4 Total Bilirubin 0.8 AST 68 H ALT 72 H Alkaline Phosphatase 82 Total Protein 6.8 Albumin 4.1
[2024-12-17] MEDS: INSULIN GLARGINE (*BKC) 100 UNITS/ML 20 UNITS SUB-Q (20:38)
[2024-12-17] MEDS: cefTRIAXone 1 GM in SODIUM CHLORIDE 0.9% IV 50 ML 100 ML IVPB (20:38)
[2024-12-18] MEDS: LEVOTHYROXINE SODIUM 100 MCG TABLET 200 MCG PO (05:08)
[2024-12-18] MEDS: LEVOTHYROXINE SODIUM 75 MCG TABLET PO (05:08)
[2024-12-18 05:31] LABS: Hematocrit 30.5 % (42.0-52.0); Hemoglobin 10.9 g/dL (14.0-18.0); Mean Corpuscular HGB Conc 35.7 g/dl (32-36); Mean Corpuscular Hemoglobin 28.8 pg (26-34); Mean Corpuscular Volume 80.7 fl (80-100); Platelet Count Result 143 k/mm3 (150-375); Red Blood Count 3.78 M/mm3 (4.6-6.20); White Blood Count 7.0 K/mm3 (4.5-10.0)
[2024-12-18 05:42] LABS: Anion Gap 8 mmol/L (4-12); Blood Urea Nitrogen 26 mg/dL (9-20); Calcium 8.4 mg/dL (8.4-10.2); Carbon Dioxide 26 mmol/L (22-30); Chloride 97 mmol/L (98-107); Estimated CRCL calculation 36 ml/min; Estimated Glomerular Filt Rate 29; Glucose 149 mg/dL (65-110); Potassium 3.7 mmol/L (3.4-5.0); Sodium 131 mmol/L (137-145)
[2024-12-18 06:00] VITALS: BP 126/69; PULSE 60; RESP 18; TEMP 36.2; O2SAT 100
--- NOTE | 2024-12-18 08:02 | PM.IMPN ---
Progress Note: A&P Assessment and Plan (1) Hydronephrosis with urinary obstruction due to ureteral calculus: Code(s): N13.2 - Hydronephrosis with renal and ureteral calculous obstruction Status: Acute Assessment and Plan: Hydronephrosis secondary to renal stone CT abdomen/pelvis: Right hydronephrosis secondary to a 9.6 mm stone in the proximal right ureter. Stone further complicated by acute UTI - UC obtained on 12/16, no previous micro reviewed: pending - started on rocephin on 12/16 Urology consulted s/p cystoscopy with right retrograde pyelogram and stent placement on 12/[address] Camp Will plan for definitive stone managed with outpatient right ureteroscopy, right stent exchange with Dr. Navarro. Intraoperative urine culture results are still pending. Will need culture results prior to discharge home. Will discharge pt medical management for ureteral stent symptoms - Tamsulosin 0.4 mg x 30 days - VESIcare 5 mg x 30 days - Pyridium 200 mg TID x 5 days (2) Acute kidney injury superimposed on stage 3a chronic kidney disease: Code(s): N17.9 - Acute kidney failure, unspecified; N18.31 - Chronic kidney disease, stage 3a Status: Acute Assessment and Plan: Acute kidney injury on chronic kidney disease likely multifactorial due to obstructing kidney stone and complicated by acute dehydration. Dehydration and multifactorial due to decreased oral intake and uncontrolled diabetes with hyperglycemia. Patient received 2 L IV fluid bolus on admission Cr previously 2.88 in 10/2024 and 1.38 in 07/2024 Cr downtrending Will monitor strict I&O's and daily weights. Will hold patient's home diuretic therapy, resume as appropriate (3) Uncontrolled hypertension: Code(s): I10 - Essential (primary) hypertension Status: Acute Assessment and Plan: Chronic - losartan 25 mg daily and metoprolol 12.5 mg daily - blood pressures reviewed and remain stable, continue to monitor (4) Type 2 diabetes mellitus with hyperglycemia, with long-term current use of insulin: Code(s): E11.65 - Type 2 diabetes mellitus with hyperglycemia; Z79.4 - intermediate (current) use of insulin Status: Acute Assessment and Plan: - hypoglycemia protocol - POC blood glucose ACHS - home medication - lantus 25 units bid - correct regimen ordered - SSI and lantus 20 units HS (5) Acute hypokalemia: Code(s): E87.6 - Hypokalemia Status: Acute Assessment and Plan: K 2.7 on admission Resolved with supplementation (6) Depression: Qualifiers: Depression Type: unspecified Qualified Code(s): F32.9 - Major depressive disorder, single episode, unspecified Code(s): F32.9 - Major depressive disorder, single episode, unspecified Status: Acute Assessment and Plan: Continue home psychiatric medications. Time Spent With Patient Time with patient: 25 - 35 minutes Subjective Date/time seen: 12/18/24 08:02 Interval history: 64-year-old male with a past medical history of chronic kidney disease, treatment resistant depression, PTSD, tardive dyskinesia, uncontrolled diabetes mellitus with diabetic peripheral neuropathy, essential hypertension, coronary artery disease with 1 vessel bypass, GERD and hypothyroidism who presented with complaints of spasming pain in his abdomen. Patient is pleasant sitting up comfortably in bed with family at bedside. He continues to endorse mild dysuria and burning sensation with urination but states that this is much improved since admission. He has no other complaints denying chest pain, shortness a breath, palpitations, nausea/vomiting, and abdominal pain. Patient remains inpatient at this time pending urine culture as per Urology recommendations. Review of Systems Review of Systems: All systems reviewed & are unremarkable except as noted in HPI and below Exam Narrative: AF HR 60 RR 18 SpO2 100 BP 126/69 General: male in no acute respiratory distress who is nontoxic appearing, sitting up in bed. HEENT: Normocephalic. Atraumatic. Extraocular movement intact. Sclera clear and anicteric. No facial asymmetry. Chest: Lungs are clear to auscultation bilaterally. No wheezes or crackles. CV: Heart was regular rate and rhythm. Abd: Abdomen was soft. Nontender. Nondistended. Positive bowel sounds. Neuro: Patient is alert and oriented x3. Speech is clear. Objective Data Vital Signs Vital Signs: Vital Signs - 24 hr 12/17/24 09:04 12/17/24 09:10 12/17/24 13:42 Temperature Pulse Rate 66 Respiratory Rate Blood Pressure Pulse Oximetry 98 Oxygen Delivery Room Air Room Air 12/17/24 14:00 12/17/24 20:00 12/17/24 22:00 Temperature 98.2 F 97.4 F L Pulse Rate 58 L 59 L Respiratory Rate 16 18 Blood Pressure 145/79 H 162/91 H Pulse Oximetry 100 100 Oxygen Delivery Room Air 12/18/24 06:00 Temperature 97.2 F L Pulse Rate 60 Respiratory Rate 18 Blood Pressure 126/69 Pulse Oximetry 100 Oxygen Delivery Intake/Output Intake/Output: Intake & Output 12/15/24 12/16/24 12/17/24 12/18/24 23:59 23:59 23:59 23:59 Intake Total 2049 3132.5 3166 600 Output Total 1250 3185 1600 Balance 2049 1882.5 -19 -1000 Meds/Results Medications: Active Medications Generic Name Dose Route Start Last Admin Trade Name Freq PRN Reason Stop Dose Admin Acetaminophen 650 mg 12/15/24 20:58 12/16/24 09:53 Acetaminophen 325 Mg Tablet PO 650 mg Q4H PRN Administration Mild Pain (1-3) or Fever Hydrocodone Bitart/Acetaminophen 1 tab 12/15/24 20:58 Hydrocodone/Acetaminophen (*Crx) 5-325 Mg Tablet PO Q4H PRN Pain Rated 4-6 Al Hydrox/Mg Hydrox/Simethicone 30 ml 12/16/24 00:25 Mag Hydrox/Al Hydrox/Simeth 30 Ml Udc PO Q6H PRN Indigestion Dextrose 12.5 gm 12/15/24 22:02 Dextrose 50% 25 Gm/50 Ml Syringe IV PUSH PRN PRN Hypoglycemia Protocol Duloxetine HCl 30 mg 12/16/24 09:00 12/17/24 09:04 Duloxetine Hcl 30 Mg Capsule. PO 30 mg DAILY JAZMÍN Administration Duloxetine HCl 60 mg 12/16/24 09:00 12/17/24 09:03 Duloxetine Hcl 60 Mg Capsule. PO 60 mg DAILY JAZMÍN Administration Fish Oil 1 gm 12/16/24 09:00 12/17/24 09:04 [place] 3 Polyunsat Fatty Acids 1 Gm Cap PO 1 gm DAILY JAZMÍN Administration Fluoxetine HCl 40 mg 12/16/24 09:00 12/17/24 09:04 Fluoxetine Hcl 20 Mg Capsule PO 40 mg DAILY JAZMÍN Administration Gabapentin 400 mg 12/16/24 21:00 12/17/24 20:38 Gabapentin 400 Mg Capsule PO 400 mg TID@0900,1300,2100 JAZMÍN Administration Glucagon 1 mg 12/15/24 22:02 Glucagon For Inj 1 Mg Vial IM PRN PRN Hypoglycemia Protocol Glucose 15 gm 12/15/24 22:02 Glucose Oral Gel 15 Gm Of Glucse In 37.5 Gm Tube PO PRN PRN Hypoglycemia Protocol Hydralazine HCl 10 mg 12/15/24 22:57 12/16/24 00:29 Hydralazine Hcl 20 Mg/Ml Vial IV PUSH 10 mg Q4H PRN Administration SBP greater than 160 Hydromorphone HCl 0.5 mg 12/15/24 20:58 Hydromorphone Hcl Inj (*Crx) 1 Mg/Ml Syr IV PUSH Q4H PRN Pain Rated 7-10 Dextrose 1,000 mls @ 100 mls/hr 12/15/24 22:02 Dextrose 5% 1,000 Ml IVPB PRN PRN Hypoglycemia Protocol Ceftriaxone Sodium 1 gm/ 50 mls @ 100 mls/hr 12/16/24 22:00 12/17/24 20:38 Sodium Chloride IVPB 100 mls/hr Q24H JAZMÍN Administration Insulin Aspart 2 - 5 units 12/17/24 12:25 12/17/24 17:41 Insulin Aspart (*Bkc) 100 Units/Ml SUB-Q 5 units TIDWM JAZMÍN Administration Protocol Insulin Glargine 20 units 12/17/24 21:00 12/17/24 20:38 Insulin Glargine (*Bkc) 100 Units/Ml 0.2 units/kg (20 units) 20 units SUB-Q Administration [facility] Levothyroxine Sodium 200 mcg 12/16/24 06:30 12/18/24 05:08 Levothyroxine Sodium 100 Mcg Tablet PO 200 mcg DAILY@0630 JAZMÍN Administration Levothyroxine Sodium 75 mcg 12/16/24 06:30 12/18/24 05:08 Levothyroxine Sodium 75 Mcg Tablet PO 75 mcg DAILY@0630 JAZMÍN Administration Losartan Potassium 25 mg 12/17/24 13:40 12/17/24 17:41 Losartan Potassium 25 Mg Tablet BY MOUTH 25 mg DAILY JAZMÍN Administration Metoprolol Succinate 12.5 mg 12/16/24 09:00 12/17/24 09:04 Metoprolol Succinate Ext Rel 12.5 Mg Tabcr PO 12.5 mg DAILY JAZMÍN Administration Miscellaneous Information 1 each 12/17/24 00:01 Please Clarify Cholecalciferol Dosing XX 01/16/25 00:00 CLARIFY JAZMÍN Home Med ( 1 mg 12/16/24 09:00 12/17/24 09:05 Brexpiprazole [ PO 01/15/25 08:59 1 mg Rexulti] 1 Mg Tablet DAILY JAZMÍN Administration ) Home Med ( 18 mg 12/16/24 09:00 12/17/24 17:42 Deutetrabenazine [ PO 01/15/25 08:59 18 mg [place]edo] 9 Mg Tablet BID JAZMÍN Administration ) Non-Formulary Medication 1,250 mcg 12/24/24 09:00 Cholecalciferol (Vitamin D3) PO 01/23/25 08:59 WEEKLY JAZMÍN Ondansetron HCl 4 mg 12/15/24 20:58 Ondansetron Inj 4 Mg/2 Ml Vial IV PUSH Q4H PRN Nausea Pantoprazole Sodium 40 mg 12/16/24 09:00 12/17/24 17:41 Pantoprazole 40 Mg Tablet PO 40 mg BID JAZMÍN Administration Primidone 250 mg 12/16/24 09:00 12/17/24 09:04 Primidone 250 Mg Tablet PO 250 mg DAILY JAZMÍN Administration Rosuvastatin Calcium 20 mg 12/16/24 09:00 12/17/24 09:04 Rosuvastatin 20 Mg Tablet PO 20 mg DAILY JAZMÍN Administration Trazodone HCl 50 mg 12/16/24 00:30 12/17/24 20:38 Trazodone Hcl 50 Mg Tablet PO 50 mg HS JAZMÍN Administration Radiology Results: ITS Impressions Abdomen/Pelvis CT 12/15/24 19:29 IMPRESSION: Right hydronephrosis secondary to a 9.6 mm stone in the proximal right ureter. All CT scans at this facility are performed using low dose modulation techniques as appropriate to perform exam including the following: automated exposure control; use of iterative reconstruction technique; adjustment of the mA and/or kV according to patient size (this includes techniques or standardized protocols for targeted exams where dose is matched to indication/reason for exam). Retrograde Pyelogram 12/18/24 07:40 IMPRESSION: 1. Right internal ureteral stent placement. Please refer to real-time procedural findings for details. Labs Labs: Laboratory Results - last 24 hr 12/17/24 12/17/24 12/17/24 08:19 11:40 14:19 WBC 9.3 RBC 4.10 L Hgb 11.7 L Hct 34.2 L MCV 83.4 D MCH 28.5 MCHC 34.2 RDW 13.2 Plt Count 159 MPV 10.8 H Sodium 127 L Potassium 4.1 Chloride 93 L Carbon Dioxide 23 Anion Gap 11 BUN 33 H D Creatinine 2.34 H Estim Creat Clear Calc 35 Estimated GFR 28 L Glucose 332 H POC Capillary Glucose 200 H 356 H Calcium 8.4 Total Bilirubin 0.8 AST 68 H ALT 72 H Alkaline Phosphatase 82 Total Protein 6.8 Albumin 4.1 12/17/24 12/17/24 12/18/24 16:14 19:47 05:16 WBC 7.0 RBC 3.78 L Hgb 10.9 L Hct 30.5 L MCV 80.7 MCH 28.8 MCHC 35.7 RDW 13.1 Plt Count 143 L MPV 10.7 H Sodium 131 L Potassium 3.7 Chloride 97 L Carbon Dioxide 26 Anion Gap 8 BUN 26 H Creatinine 2.29 H Estim Creat Clear Calc 36 Estimated GFR 29 L Glucose 149 H POC Capillary Glucose 270 H 275 H Calcium 8.4 Total Bilirubin AST ALT Alkaline Phosphatase Total Protein Albumin Quality VTE Prophylaxis VTE prophylaxis: mechanical ordered
[2024-12-18 10:09] VITALS: PULSE 60
[2024-12-18] MEDS: PRIMIDONE 250 MG TABLET PO (10:09)
[2024-12-18] MEDS: DULoxetine HCL 60 MG CAPSULE.DR PO (10:09)
[2024-12-18] MEDS: LOSARTAN POTASSIUM 25 MG TABLET BY MOUTH (10:09)
[2024-12-18] MEDS: METOPROLOL SUCCINATE EXT REL 12.5 MG TABCR PO (10:09)
[2024-12-18] MEDS: PANTOPRAZOLE 40 MG TABLET PO ×2 (10:09→16:49)
[2024-12-18] MEDS: OMEGA 3 POLYUNSAT FATTY ACIDS 1 GM CAP PO (10:09)
[2024-12-18] MEDS: ROSUVASTATIN 20 MG TABLET PO (10:09)
[2024-12-18] MEDS: GABAPENTIN 400 MG CAPSULE PO ×3 (10:10→22:05)
--- NOTE | 2024-12-18 11:24 | WPDUROPN2 ---
Progress Note: A&P Assessment and Plan (1) Hydronephrosis with renal calculous obstruction: Code(s): N13.2 - Hydronephrosis with renal and ureteral calculous obstruction Status: Acute Assessment and Plan: - CT A/P with Right 9.6 cm proximal ureteral stone s/p ureteral stent placement 12/26/2024 - Will plan for definitive stone managed with outpatient Right ureteroscopy, Right stent exchange with Dr. Navarro. facility technician to be message and pt contacted with details on date/time. Lengthy discussion detailing risks and benefits of of surgery with pt today. He expresses his understanding of the plan and agrees to proceed. (2) Ureteral stent present: Code(s): Z96.0 - Presence of urogenital implants Status: Acute Assessment and Plan: - Will discharge pt medical management for ureteral stent symptoms - Tamsulosin 0.4 mg x 30 days - VESIcare 5 mg x 30 days - Pyridium 200 mg TID x 5 days Subjective Subjective Date/Time Seen: 12/18/24 11:24 Interval history: NAEO; s/p ureteral stent placement 12/16. Pt reporting mild dysuria and urgency. No other complaints currently. Exam Const: General: comfortable and no acute distress Eyes: General: appearance normal, both eyes and all related structures Resp: Effort & Inspection: normal respiratory effort : Other: Penile meatus with surgical changes consistent with Hx of urethral reconstruction Skin: General skin exam: normal color Neuro: Speech: normal speech Psych: Affect: normal affect Objective Data Vital Signs Vital Signs: Vital Signs - 24 hr 12/17/24 13:42 12/17/24 14:00 12/17/24 20:00 Temperature 36.8 C Pulse Rate 58 L Respiratory Rate 16 Blood Pressure 145/79 H Pulse Oximetry 98 100 Oxygen Delivery Room Air Room Air 12/17/24 22:00 12/18/24 06:00 12/18/24 10:09 Temperature 36.3 C L 36.2 C L Pulse Rate 59 L 60 60 Respiratory Rate 18 18 Blood Pressure 162/91 H 126/69 Pulse Oximetry 100 100 Oxygen Delivery Intake/Output Intake/Output: Intake & Output 12/15/24 12/16/24 12/17/24 12/18/24 23:59 23:59 23:59 23:59 Intake Total 2049 3132.5 3166 840 Output Total 1250 3185 2200 Balance 0 1882.5 -19 -0650 Meds/Results Medications: Active Medications Generic Name Dose Route Start Last Admin Trade Name Freq PRN Reason Stop Dose Admin Acetaminophen 650 mg 12/15/24 20:58 12/16/24 09:53 Acetaminophen 325 Mg Tablet PO 650 mg Q4H PRN Administration Mild Pain (1-3) or Fever Hydrocodone Bitart/Acetaminophen 1 tab 12/15/24 20:58 Hydrocodone/Acetaminophen (*Crx) 5-325 Mg Tablet PO Q4H PRN Pain Rated 4-6 Al Hydrox/Mg Hydrox/Simethicone 30 ml 12/16/24 00:25 Mag Hydrox/Al Hydrox/Simeth 30 Ml Udc PO Q6H PRN Indigestion Dextrose 12.5 gm 12/15/24 22:02 Dextrose 50% 25 Gm/50 Ml Syringe IV PUSH PRN PRN Hypoglycemia Protocol Duloxetine HCl 30 mg 12/16/24 09:00 12/18/24 10:10 Duloxetine Hcl 30 Mg Capsule. PO 30 mg DAILY JAZMÍN Administration Duloxetine HCl 60 mg 12/16/24 09:00 12/18/24 10:09 Duloxetine Hcl 60 Mg Capsule.Dr PO 60 mg DAILY JAZMÍN Administration Fish Oil 1 gm 12/16/24 09:00 12/18/24 10:09 [place] 3 Polyunsat Fatty Acids 1 Gm Cap PO 1 gm DAILY JAZMÍN Administration Fluoxetine HCl 40 mg 12/16/24 09:00 12/18/24 10:09 Fluoxetine Hcl 20 Mg Capsule PO 40 mg DAILY JAZMÍN Administration Gabapentin 400 mg 12/16/24 21:00 12/18/24 10:10 Gabapentin 400 Mg Capsule PO 400 mg TID@0900,1300,2100 JAZMÍN Administration Glucagon 1 mg 12/15/24 22:02 Glucagon For Inj 1 Mg Vial IM PRN PRN Hypoglycemia Protocol Glucose 15 gm 12/15/24 22:02 Glucose Oral Gel 15 Gm Of Glucse In 37.5 Gm Tube PO PRN PRN Hypoglycemia Protocol Hydralazine HCl 10 mg 12/15/24 22:57 12/16/24 00:29 Hydralazine Hcl 20 Mg/Ml Vial IV PUSH 10 mg Q4H PRN Administration SBP greater than 160 Hydromorphone HCl 0.5 mg 12/15/24 20:58 Hydromorphone Hcl Inj (*Crx) 1 Mg/Ml Syr IV PUSH Q4H PRN Pain Rated 7-10 Dextrose 1,000 mls @ 100 mls/hr 12/15/24 22:02 Dextrose 5% 1,000 Ml IVPB PRN PRN Hypoglycemia Protocol Ceftriaxone Sodium 1 gm/ 50 mls @ 100 mls/hr 12/16/24 22:00 12/17/24 20:38 Sodium Chloride IVPB 100 mls/hr Q24H JAZMÍN Administration Insulin Aspart 2 - 5 units 12/17/24 12:25 12/18/24 09:31 Insulin Aspart (*Bkc) 100 Units/Ml SUB-Q Not Given TIDWM JAZMÍN Protocol Insulin Glargine 20 units 12/17/24 21:00 12/17/24 20:38 Insulin Glargine (*Bkc) 100 Units/Ml 0.2 units/kg (20 units) 20 units SUB-Q Administration [facility] Levothyroxine Sodium 200 mcg 12/16/24 06:30 12/18/24 05:08 Levothyroxine Sodium 100 Mcg Tablet PO 200 mcg DAILY@0630 JAZMÍN Administration Levothyroxine Sodium 75 mcg 12/16/24 06:30 12/18/24 05:08 Levothyroxine Sodium 75 Mcg Tablet PO 75 mcg DAILY@0630 JAZMÍN Administration Losartan Potassium 25 mg 12/17/24 13:40 12/18/24 10:09 Losartan Potassium 25 Mg Tablet BY MOUTH 25 mg DAILY JAZMÍN Administration Metoprolol Succinate 12.5 mg 12/16/24 09:00 12/18/24 10:09 Metoprolol Succinate Ext Rel 12.5 Mg Tabcr PO 12.5 mg DAILY JAZMÍN Administration Miscellaneous Information 1 each 12/17/24 00:01 Please Clarify Cholecalciferol Dosing XX 01/16/25 00:00 CLARIFY JAZMÍN Home Med ( 1 mg 12/16/24 09:00 12/18/24 10:11 Brexpiprazole [ PO 01/15/25 08:59 Not Given Rexulti] 1 Mg Tablet DAILY [facility] ) Home Med ( 18 mg 12/16/24 09:00 12/18/24 10:11 Deutetrabenazine [ PO 01/15/25 08:59 Not Given [place]] 9 Mg Tablet BID [facility] ) Non-Formulary Medication 1,250 mcg 12/24/24 09:00 Cholecalciferol (Vitamin D3) PO 01/23/25 08:59 WEEKLY JAZMÍN Ondansetron HCl 4 mg 12/15/24 20:58 Ondansetron Inj 4 Mg/2 Ml Vial IV PUSH Q4H PRN Nausea Pantoprazole Sodium 40 mg 12/16/24 09:00 12/18/24 10:09 Pantoprazole 40 Mg Tablet PO 40 mg BID JAZMÍN Administration Primidone 250 mg 12/16/24 09:00 12/18/24 10:09 Primidone 250 Mg Tablet PO 250 mg DAILY JAZMÍN Administration Rosuvastatin Calcium 20 mg 12/16/24 09:00 12/18/24 10:09 Rosuvastatin 20 Mg Tablet PO 20 mg DAILY JAZMÍN Administration Trazodone HCl 50 mg 12/16/24 00:30 12/17/24 20:38 Trazodone Hcl 50 Mg Tablet PO 50 mg HS JAZMÍN Administration Radiology Results: ITS Impressions Abdomen/Pelvis CT 12/15/24 19:29 IMPRESSION: Right hydronephrosis secondary to a 9.6 mm stone in the proximal right ureter. All CT scans at this facility are performed using low dose modulation techniques as appropriate to perform exam including the following: automated exposure control; use of iterative reconstruction technique; adjustment of the mA and/or kV according to patient size (this includes techniques or standardized protocols for targeted exams where dose is matched to indication/reason for exam). Retrograde Pyelogram 12/18/24 07:40 IMPRESSION: 1. Right internal ureteral stent placement. Please refer to real-time procedural findings for details. Labs Labs: Laboratory Results - last 24 hr 12/17/24 12/17/24 12/17/24 11:40 14:19 16:14 WBC 9.3 RBC 4.10 L Hgb 11.7 L Hct 34.2 L MCV 83.4 D MCH 28.5 MCHC 34.2 RDW 13.2 Plt Count 159 MPV 10.8 H Sodium 127 L Potassium 4.1 Chloride 93 L Carbon Dioxide 23 Anion Gap 11 BUN 33 H D Creatinine 2.34 H Estim Creat Clear Calc 35 Estimated GFR 28 L Glucose 332 H POC Capillary Glucose 356 H 270 H Calcium 8.4 Total Bilirubin 0.8 AST 68 H ALT 72 H Alkaline Phosphatase 82 Total Protein 6.8 Albumin 4.1 12/17/24 12/18/24 12/18/24 19:47 05:16 08:26 WBC 7.0 RBC 3.78 L Hgb 10.9 L Hct 30.5 L MCV 80.7 MCH 28.8 MCHC 35.7 RDW 13.1 Plt Count 143 L MPV 10.7 H Sodium 131 L Potassium 3.7 Chloride 97 L Carbon Dioxide 26 Anion Gap 8 BUN 26 H Creatinine 2.29 H Estim Creat Clear Calc 36 Estimated GFR 29 L Glucose 149 H POC Capillary Glucose 275 H 153 H Calcium 8.4 Total Bilirubin AST ALT Alkaline Phosphatase Total Protein Albumin
[2024-12-18] MEDS: INSULIN ASPART (*BKC) 100 UNITS/ML SUB-Q (12:45)
[2024-12-18 13:44] VITALS: BP 132/81; PULSE 62; RESP 16; TEMP 36.6; O2SAT 99
[2024-12-18] MEDS: DEUTETRABENAZINE 9 MG 18 EACH PO (16:49)
[2024-12-18 20:49] VITALS: BP 130/71; PULSE 66; RESP 18; TEMP 36.5; O2SAT 100
[2024-12-18] MEDS: MAG HYDROX/AL HYDROX/SIMETH 30 ML UDC PO (22:04)
[2024-12-18] MEDS: cefTRIAXone 1 GM in SODIUM CHLORIDE 0.9% IV 50 ML 100 ML IVPB (22:05)
[2024-12-18] MEDS: INSULIN GLARGINE (*BKC) 100 UNITS/ML 20 UNITS SUB-Q (22:07)
[2024-12-19] MEDS: LEVOTHYROXINE SODIUM 100 MCG TABLET 200 MCG PO (05:27)
[2024-12-19] MEDS: LEVOTHYROXINE SODIUM 75 MCG TABLET PO (05:27)
[2024-12-19 05:31] LABS: Hematocrit 29.4 % (42.0-52.0); Hemoglobin 10.4 g/dL (14.0-18.0); Immature Platelet Fraction Pct 7.4 % (0.9-11.2); Mean Corpuscular HGB Conc 35.4 g/dl (32-36); Mean Corpuscular Hemoglobin 28.8 pg (26-34); Mean Corpuscular Volume 81.4 fl (80-100); Platelet Count Result 138 k/mm3 (150-375); Red Blood Count 3.61 M/mm3 (4.6-6.20); White Blood Count 7.5 K/mm3 (4.5-10.0)
[2024-12-19 05:54] LABS: Anion Gap 6 mmol/L (4-12); Blood Urea Nitrogen 25 mg/dL (9-20); Calcium 8.9 mg/dL (8.4-10.2); Carbon Dioxide 26 mmol/L (22-30); Chloride 97 mmol/L (98-107); Estimated CRCL calculation 39 ml/min; Estimated Glomerular Filt Rate 33; Glucose 304 mg/dL (65-110); Potassium 3.7 mmol/L (3.4-5.0); Sodium 129 mmol/L (137-145)
[2024-12-19 06:00] VITALS: BP 124/52; PULSE 71; RESP 18; TEMP 37; O2SAT 96
--- NOTE | 2024-12-19 07:32 | PM.IMPN ---
Progress Note: A&P Assessment and Plan (1) Hydronephrosis with urinary obstruction due to ureteral calculus: Code(s): N13.2 - Hydronephrosis with renal and ureteral calculous obstruction Status: Acute Assessment and Plan: Hydronephrosis secondary to renal stone CT abdomen/pelvis: Right hydronephrosis secondary to a 9.6 mm stone in the proximal right ureter. Stone further complicated by acute UTI - UC obtained on 12/16, no previous micro reviewed: pending - started on Rocephin on 12/16 Urology consulted s/p cystoscopy with right retrograde pyelogram and stent placement on 12/[address] Camp Will plan for definitive stone managed with outpatient right ureteroscopy, right stent exchange with Dr. Navarro. Intraoperative urine culture results are still pending. Will need culture results prior to discharge home. Will discharge pt medical management for ureteral stent symptoms - Tamsulosin 0.4 mg x 30 days - VESIcare 5 mg x 30 days - Pyridium 200 mg TID x 5 days Urine culture still pending. Per urology patient to stay in patient till urine culture returns. Called lab gianna today and no results as of yet. Continue IV rocephin as above. (2) Acute kidney injury superimposed on stage 3a chronic kidney disease: Code(s): N17.9 - Acute kidney failure, unspecified; N18.31 - Chronic kidney disease, stage 3a Status: Acute Assessment and Plan: Acute kidney injury on chronic kidney disease likely multifactorial due to obstructing kidney stone and complicated by acute dehydration. Dehydration and multifactorial due to decreased oral intake and uncontrolled diabetes with hyperglycemia. Patient received 2 L IV fluid bolus on admission Cr previously 2.88 in 10/2024 and 1.38 in 07/2024 Cr downtrending Given NS 1L at 75 ml/hr Will monitor strict I&O's and daily weights. 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 (6) Depression: Qualifiers: Depression Type: unspecified Qualified Code(s): F32.9 - Major depressive disorder, single episode, unspecified Code(s): F32.9 - Major depressive disorder, single episode, unspecified Status: Acute Assessment and Plan: Continue home psychiatric medications. (7) Uncontrolled hypertension: Code(s): I10 - Essential (primary) hypertension Status: Acute Assessment and Plan: Chronic - losartan 25 mg daily and metoprolol 12.5 mg daily - blood pressures reviewed and remain stable, continue to monitor Time Spent With Patient Time with patient: 25 - 35 minutes Subjective Date/time seen: 12/19/24 07:32 Interval history: 64-year-old male with a past medical history of chronic kidney disease, treatment resistant depression, PTSD, tardive dyskinesia, uncontrolled diabetes mellitus with diabetic peripheral neuropathy, essential hypertension, coronary artery disease with 1 vessel bypass, GERD and hypothyroidism who presented with complaints of spasming pain in his abdomen. Patient is pleasant lying comfortably in bed. No acute events overnight. He is endorsing slightly increased weakness and per rn she is noting an unsteady gait. PT ordered. He otherwise has no complaints denying chest pain, palpitations, shortness of breaht, nausea/vomiting and abdominal pain. Review of Systems Review of Systems: All systems reviewed & are unremarkable except as noted in HPI and below Exam Narrative: AF HR 71 RR 18 SpO2 96 BP 124/52 General: male in no acute respiratory distress who is nontoxic appearing, sitting up in bed. HEENT: Normocephalic. Atraumatic. Extraocular movement intact. Sclera clear and anicteric. No facial asymmetry. Chest: Lungs are clear to auscultation bilaterally. No wheezes or crackles. CV: Heart was regular rate and rhythm. Abd: Abdomen was soft. Nontender. Nondistended. Positive bowel sounds. Neuro: Patient is alert and oriented x3. Speech is clear. Objective Data Vital Signs Vital Signs: Vital Signs - 24 hr 12/18/24 08:00 12/18/24 10:09 12/18/24 13:44 Temperature 97.8 F Pulse Rate 60 62 Respiratory Rate 16 Blood Pressure 132/81 Pulse Oximetry 99 Oxygen Delivery Room Air 12/18/24 20:00 12/18/24 20:49 Temperature 97.7 F Pulse Rate 66 Respiratory Rate 18 Blood Pressure 130/71 Pulse Oximetry 100 Oxygen Delivery Room Air Intake/Output Intake/Output: Intake & Output 12/16/24 12/17/24 12/18/24 12/19/24 23:59 23:59 23:59 23:59 Intake Total 3132.5 3216 3450 Output Total 1250 3185 3400 Balance 1882.5 31 50 Meds/Results Medications: Active Medications Generic Name Dose Route Start Last Admin Trade Name Freq PRN Reason Stop Dose Admin Acetaminophen 650 mg 12/15/24 20:58 12/16/24 09:53 Acetaminophen 325 Mg Tablet PO 650 mg Q4H PRN Administration Mild Pain (1-3) or Fever Hydrocodone Bitart/Acetaminophen 1 tab 12/15/24 20:58 Hydrocodone/Acetaminophen (*Crx) 5-325 Mg Tablet PO Q4H PRN Pain Rated 4-6 Al Hydrox/Mg Hydrox/Simethicone 30 ml 12/16/24 00:25 12/18/24 22:04 Mag Hydrox/Al Hydrox/Simeth 30 Ml Udc PO 30 ml Q6H PRN Administration Indigestion Dextrose 12.5 gm 12/15/24 22:02 Dextrose 50% 25 Gm/50 Ml Syringe IV PUSH PRN PRN Hypoglycemia Protocol Duloxetine HCl 30 mg 12/16/24 09:00 12/18/24 10:10 Duloxetine Hcl 30 Mg Capsule. PO 30 mg DAILY JAZMÍN Administration Duloxetine HCl 60 mg 12/16/24 09:00 12/18/24 10:09 Duloxetine Hcl 60 Mg Capsule.Dr PO 60 mg DAILY JAZMÍN Administration Fish Oil 1 gm 12/16/24 09:00 12/18/24 10:09 [place] 3 Polyunsat Fatty Acids 1 Gm Cap PO 1 gm DAILY JAZMÍN Administration Fluoxetine HCl 40 mg 12/16/24 09:00 12/18/24 10:09 Fluoxetine Hcl 20 Mg Capsule PO 40 mg DAILY JAZMÍN Administration Gabapentin 400 mg 12/16/24 21:00 12/18/24 22:05 Gabapentin 400 Mg Capsule PO 400 mg TID@0900,1300,2100 JAZMÍN Administration Glucagon 1 mg 12/15/24 22:02 Glucagon For Inj 1 Mg Vial IM PRN PRN Hypoglycemia Protocol Glucose 15 gm 12/15/24 22:02 Glucose Oral Gel 15 Gm Of Glucse In 37.5 Gm Tube PO PRN PRN Hypoglycemia Protocol Hydralazine HCl 10 mg 12/15/24 22:57 12/16/24 00:29 Hydralazine Hcl 20 Mg/Ml Vial IV PUSH 10 mg Q4H PRN Administration SBP greater than 160 Hydromorphone HCl 0.5 mg 12/15/24 20:58 Hydromorphone Hcl Inj (*Crx) 1 Mg/Ml Syr IV PUSH Q4H PRN Pain Rated 7-10 Dextrose 1,000 mls @ 100 mls/hr 12/15/24 22:02 Dextrose 5% 1,000 Ml IVPB PRN PRN Hypoglycemia Protocol Ceftriaxone Sodium 1 gm/ 50 mls @ 100 mls/hr 12/16/24 22:00 12/18/24 22:05 Sodium Chloride IVPB 100 mls/hr Q24H JAZMÍN Administration Insulin Aspart 2 - 5 units 12/17/24 12:25 12/18/24 16:28 Insulin Aspart (*Bkc) 100 Units/Ml SUB-Q Not Given TIDWM JAZMÍN Protocol Insulin Glargine 20 units 12/17/24 21:00 12/18/24 22:07 Insulin Glargine (*Bkc) 100 Units/Ml 0.2 units/kg (20 units) 20 units SUB-Q Administration HS JAZMÍN Levothyroxine Sodium 200 mcg 12/16/24 06:30 12/19/24 05:27 Levothyroxine Sodium 100 Mcg Tablet PO 200 mcg DAILY@0630 JAZMÍN Administration Levothyroxine Sodium 75 mcg 12/16/24 06:30 12/19/24 05:27 Levothyroxine Sodium 75 Mcg Tablet PO 75 mcg DAILY@0630 JAZMÍN Administration Losartan Potassium 25 mg 12/17/24 13:40 12/18/24 10:09 Losartan Potassium 25 Mg Tablet BY MOUTH 25 mg DAILY JAZMÍN Administration Metoprolol Succinate 12.5 mg 12/16/24 09:00 12/18/24 10:09 Metoprolol Succinate Ext Rel 12.5 Mg Tabcr PO 12.5 mg DAILY JAZMÍN Administration Miscellaneous Information 1 each 12/17/24 00:01 Please Clarify Cholecalciferol Dosing XX 01/16/25 00:00 CLARIFY JAZMÍN Home Med ( 1 mg 12/16/24 09:00 12/18/24 10:11 Brexpiprazole [ PO 01/15/25 08:59 Not Given Rexulti] 1 Mg Tablet DAILY JAZMÍN ) Home Med ( 18 mg 12/16/24 09:00 12/18/24 16:49 Deutetrabenazine [ PO 01/15/25 08:59 18 mg Austedo] 9 Mg Tablet BID JAZMÍN Administration ) Non-Formulary Medication 1,250 mcg 12/24/24 09:00 Cholecalciferol (Vitamin D3) PO 01/23/25 08:59 WEEKLY JAZMÍN Ondansetron HCl 4 mg 12/15/24 20:58 Ondansetron Inj 4 Mg/2 Ml Vial IV PUSH Q4H PRN Nausea Pantoprazole Sodium 40 mg 12/16/24 09:00 12/18/24 16:49 Pantoprazole 40 Mg Tablet PO 40 mg BID JAZMÍN Administration Primidone 250 mg 12/16/24 09:00 12/18/24 10:09 Primidone 250 Mg Tablet PO 250 mg DAILY JAZMÍN Administration Rosuvastatin Calcium 20 mg 12/16/24 09:00 12/18/24 10:09 Rosuvastatin 20 Mg Tablet PO 20 mg DAILY JAZMÍN Administration Trazodone HCl 50 mg 12/16/24 00:30 12/18/24 22:05 Trazodone Hcl 50 Mg Tablet PO 50 mg HS JAZMÍN Administration Radiology Results: ITS Impressions Abdomen/Pelvis CT 12/15/24 19:29 IMPRESSION: Right hydronephrosis secondary to a 9.6 mm stone in the proximal right ureter. All CT scans at this facility are performed using low dose modulation techniques as appropriate to perform exam including the following: automated exposure control; use of iterative reconstruction technique; adjustment of the mA and/or kV according to patient size (this includes techniques or standardized protocols for targeted exams where dose is matched to indication/reason for exam). Retrograde Pyelogram 12/18/24 07:40 IMPRESSION: 1. Right internal ureteral stent placement. Please refer to real-time procedural findings for details. Labs Labs: Laboratory Results - last 24 hr 12/18/24 12/18/24 12/18/24 08:26 12:01 16:18 WBC RBC Hgb Hct MCV MCH MCHC RDW Plt Count MPV % Immature Plt Fraction Sodium Potassium Chloride Carbon Dioxide Anion Gap BUN Creatinine Estim Creat Clear Calc Estimated GFR Glucose POC Capillary Glucose 153 H 210 H 193 H Calcium 12/18/24 12/19/24 19:55 05:00 WBC 7.5 RBC 3.61 L Hgb 10.4 L Hct 29.4 L MCV 81.4 MCH 28.8 MCHC 35.4 RDW 12.8 Plt Count 138 L MPV 11.0 H % Immature Plt Fraction 7.4 Sodium 129 L Potassium 3.7 Chloride 97 L Carbon Dioxide 26 Anion Gap 6 BUN 25 H Creatinine 2.06 H Estim Creat Clear Calc 39 Estimated GFR 33 L Glucose 304 H POC Capillary Glucose 304 H Calcium 8.9 Quality VTE Prophylaxis VTE prophylaxis: mechanical ordered
[2024-12-19] MEDS: SODIUM CHLORIDE 0.9% IV 1,000 ML 75 ML IV CONT (08:12)
[2024-12-19] MEDS: LOSARTAN POTASSIUM 25 MG TABLET BY MOUTH (08:15)
[2024-12-19] MEDS: ROSUVASTATIN 20 MG TABLET PO (08:15)
[2024-12-19] MEDS: DULoxetine HCL 60 MG CAPSULE.DR PO (08:15)
[2024-12-19] MEDS: PANTOPRAZOLE 40 MG TABLET PO ×2 (08:15→16:52)
[2024-12-19 08:16] VITALS: PULSE 71
[2024-12-19] MEDS: GABAPENTIN 400 MG CAPSULE PO ×3 (08:16→21:32)
[2024-12-19] MEDS: OMEGA 3 POLYUNSAT FATTY ACIDS 1 GM CAP PO (08:16)
[2024-12-19] MEDS: PRIMIDONE 250 MG TABLET PO (08:16)
[2024-12-19] MEDS: METOPROLOL SUCCINATE EXT REL 12.5 MG TABCR PO (08:16)
[2024-12-19] MEDS: DEUTETRABENAZINE 9 MG 18 EACH PO ×2 (08:18→16:53)
[2024-12-19] MEDS: HOME MED (Brexpiprazole [Rexulti] 1 mg tablet) 1 EACH PO (08:19)
[2024-12-19] MEDS: INSULIN ASPART (*BKC) 100 UNITS/ML SUB-Q ×3 (08:25→17:31)
[2024-12-19 14:00] VITALS: BP 160/78; PULSE 73; RESP 18; TEMP 36.7; O2SAT 100
[2024-12-19 21:04] VITALS: BP 146/81; PULSE 70; RESP 16; TEMP 36.3; O2SAT 97
[2024-12-19] MEDS: INSULIN GLARGINE (*BKC) 100 UNITS/ML 23 UNITS SUB-Q (21:32)
[2024-12-19] MEDS: cefTRIAXone 1 GM in SODIUM CHLORIDE 0.9% IV 50 ML 100 ML IVPB (21:32)
[2024-12-20 05:50] LABS: Hematocrit 30.3 % (42.0-52.0); Hemoglobin 10.6 g/dL (14.0-18.0); Immature Platelet Fraction Pct 6.8 % (0.9-11.2); Mean Corpuscular HGB Conc 35.0 g/dl (32-36); Mean Corpuscular Hemoglobin 28.6 pg (26-34); Mean Corpuscular Volume 81.7 fl (80-100); Platelet Count Result 142 k/mm3 (150-375); Red Blood Count 3.71 M/mm3 (4.6-6.20); White Blood Count 7.4 K/mm3 (4.5-10.0)
[2024-12-20 06:00] VITALS: BP 148/80; PULSE 66; RESP 16; TEMP 36.6; O2SAT 99
[2024-12-20 06:11] LABS: Anion Gap 8 mmol/L (4-12); Blood Urea Nitrogen 26 mg/dL (9-20); Calcium 9.9 mg/dL (8.4-10.2); Carbon Dioxide 27 mmol/L (22-30); Chloride 97 mmol/L (98-107); Estimated CRCL calculation 43 ml/min; Estimated Glomerular Filt Rate 36; Glucose 261 mg/dL (65-110); Potassium 4.0 mmol/L (3.4-5.0); Sodium 132 mmol/L (137-145)
[2024-12-20] MEDS: LEVOTHYROXINE SODIUM 100 MCG TABLET 200 MCG PO (06:38)
[2024-12-20] MEDS: LEVOTHYROXINE SODIUM 75 MCG TABLET PO (06:38)
[2024-12-20 08:35] VITALS: PULSE 66
[2024-12-20] MEDS: OMEGA 3 POLYUNSAT FATTY ACIDS 1 GM CAP PO (08:35)
[2024-12-20] MEDS: PRIMIDONE 250 MG TABLET PO (08:35)
[2024-12-20] MEDS: METOPROLOL SUCCINATE EXT REL 12.5 MG TABCR PO (08:35)
[2024-12-20] MEDS: GABAPENTIN 400 MG CAPSULE PO ×2 (08:36→12:34)
[2024-12-20] MEDS: PANTOPRAZOLE 40 MG TABLET PO (08:36)
[2024-12-20] MEDS: DULoxetine HCL 60 MG CAPSULE.DR PO (08:36)
[2024-12-20] MEDS: ROSUVASTATIN 20 MG TABLET PO (08:36)
[2024-12-20] MEDS: LOSARTAN POTASSIUM 25 MG TABLET BY MOUTH (08:36)
[2024-12-20] MEDS: INSULIN ASPART (*BKC) 100 UNITS/ML SUB-Q ×2 (08:37→12:34)
[2024-12-20] MEDS: HOME MED (Brexpiprazole [Rexulti] 1 mg tablet) 1 EACH PO (08:40)
[2024-12-20] MEDS: DEUTETRABENAZINE 9 MG 18 EACH PO (08:40)
--- NOTE | 2024-12-20 09:53 | PM.DS ---
DS: Admitting Diagnosis Discharge Date 12/20 Admitting Diagnosis flank pain DS: Discharge Diagnosis Discharge Diagnosis (1) Hydronephrosis with urinary obstruction due to ureteral calculus: Code(s): N13.2 - Hydronephrosis with renal and ureteral calculous obstruction Status: Acute Assessment and Plan: Hydronephrosis secondary to renal stone CT abdomen/pelvis: Right hydronephrosis secondary to a 9.6 mm stone in the proximal right ureter. Stone further complicated by acute UTI - UC obtained on 12/16, no previous micro reviewed: pending - started on Rocephin on 12/16 Urology consulted s/p cystoscopy with right retrograde pyelogram and stent placement on 12/[address] Camp Will plan for definitive stone managed with outpatient right ureteroscopy, right stent exchange with Dr. Navarro. Intraoperative urine culture results are still pending. Will need culture results prior to discharge home. Will discharge pt medical management for ureteral stent symptoms - Tamsulosin 0.4 mg x 30 days - VESIcare 5 mg x 30 days - Pyridium 200 mg TID x 5 days Urine culture still pending. Per urology patient to stay in patient till urine culture returns. Called lab gianna today and no results as of yet. Continue IV rocephin as above. (2) Acute kidney injury superimposed on stage 3a chronic kidney disease: Code(s): N17.9 - Acute kidney failure, unspecified; N18.31 - Chronic kidney disease, stage 3a Status: Acute Assessment and Plan: Acute kidney injury on chronic kidney disease likely multifactorial due to obstructing kidney stone and complicated by acute dehydration. Dehydration and multifactorial due to decreased oral intake and uncontrolled diabetes with hyperglycemia. Patient received 2 L IV fluid bolus on admission Cr previously 2.88 in 10/2024 and 1.38 in 07/2024 Cr downtrending Given NS 1L at 75 ml/hr Will monitor strict I&O's and daily weights. 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 (6) Depression: Qualifiers: Depression Type: unspecified Qualified Code(s): F32.9 - Major depressive disorder, single episode, unspecified Code(s): F32.9 - Major depressive disorder, single episode, unspecified Status: Acute Assessment and Plan: Continue home psychiatric medications. (7) Uncontrolled hypertension: Code(s): I10 - Essential (primary) hypertension Status: Acute Assessment and Plan: Chronic - losartan 25 mg daily and metoprolol 12.5 mg daily - blood pressures reviewed and remain stable, continue to monitor DS: Summary Hospital Course Hospital Course: 64-year-old male with a past medical history of chronic kidney disease, treatment resistant depression, PTSD, tardive dyskinesia, uncontrolled diabetes mellitus with diabetic peripheral neuropathy, essential hypertension, coronary artery disease with 1 vessel bypass, GERD and hypothyroidism who presented with complaints of spasming pain in his abdomen. Urology was consulted. Pt had cystoscopy with right retrograde pyelogram and stent placement with DR Camp on 12/16. Urology consulted s/p cystoscopy with right retrograde pyelogram and stent placement on 12/[address] Camp Will plan for definitive stone managed with outpatient right ureteroscopy, right stent exchange with Dr. Navarro. Intraoperative urine culture results are still pending. Will need culture results prior to discharge home. Will discharge pt medical management for ureteral stent symptoms - Tamsulosin 0.4 mg x 30 days - VESIcare 5 mg x 30 days - Pyridium 200 mg TID x 5 days Pt is stable, pain free and wants to be discharged. He will f/u with urology. Status at Discharge Functional status at discharge: independent ambulation Overall status at discharge: patient is back to baseline Time Spent with Patient Time attestation: Total time spent providing and/or coordinating discharge services: Exam Narrative: General: male in no acute respiratory distress who is nontoxic appearing, sitting up in bed. HEENT: Normocephalic. Atraumatic. Extraocular movement intact. Sclera clear and anicteric. No facial asymmetry. Chest: Lungs are clear to auscultation bilaterally. No wheezes or crackles. CV: Heart was regular rate and rhythm. Abd: Abdomen was soft. Nontender. Nondistended. Positive bowel sounds. Neuro: Patient is alert and oriented x3. Speech is clear. Const: General: comfortable Other: No acute distress, obese, appears stated age HENMT: Other: Head is normocephalic atraumatic, mucous membranes are tacky, no oral pharyngeal erythema, crowded posterior oropharynx Eyes: Other: Pupils are equal and reactive, no scleral icterus, no conjunctival pallor Neck: Other: Large neck circumference, no lymphadenopathy Resp: Other: Clear to auscultation bilaterally, no increased work of breathing Cardio: Other: Regular rate, regular rhythm, 2+ bilateral radial pedal pulses, no JVD GI: Other: Soft, nondistended, nontender, hypoactive bowel sounds Skin: Other: No jaundice, no pallor, no foot wounds Neuro: Other: Patient is alert oriented x4, speech is clear, Patient has tremor of all extremities, as tremor of the tongue, his no facial asymmetry, cranial nerves appear to be grossly intact, no gross motor deficits noted during the course of conversation Extrem: Other: No clubbing, cyanosis or edema, no foot wounds Psych: Other: Flat affect, depressed mood, pleasant, cooperative DS: Data Data Completed and Pending Labs on day of discharge: Labs from last 24 hours 12/20/24 12/20/24 12/19/24 08:13 05:34 21:14 WBC 7.4 RBC 3.71 L Hgb 10.6 L Hct 30.3 L MCV 81.7 MCH 28.6 MCHC 35.0 RDW 13.1 Plt Count 142 L MPV 11.1 H % Immature Plt Fraction 6.8 Sodium 132 L Potassium 4.0 Chloride 97 L Carbon Dioxide 27 Anion Gap 8 BUN 26 H Creatinine 1.90 H Estim Creat Clear Calc 43 Estimated GFR 36 L Glucose 261 H POC Capillary Glucose 246 H 274 H Calcium 9.9 12/19/24 12/19/24 16:39 11:43 WBC RBC Hgb Hct MCV MCH MCHC RDW Plt Count MPV % Immature Plt Fraction Sodium Potassium Chloride Carbon Dioxide Anion Gap BUN Creatinine Estim Creat Clear Calc Estimated GFR Glucose POC Capillary Glucose 272 H 364 H Calcium Discharge Plan Discharge Attending physician on discharge: Saqib Treviño Consulting providers: Julio Degroot; Masoud Camp; Geneva Guadalupe Discharging Clinician: Samantha Mckinney Patient Disposition: Home Activity: may shower Diet: heart healthy Discharge Instructions: Discharged with medical management for ureteral stent symptoms. You have total of 4 doses of augmentin to complete antibiotics. Next dose 12/20 at 9 pm. - Tamsulosin 0.4 mg x 30 days - VESIcare 5 mg x 30 days - Pyridium 200 mg TID x 5 days Right 9.6 cm proximal ureteral stone with ureteral stent placement 12/26/2024 - Will plan for definitive stone managed with outpatient Right ureteroscopy, Right stent exchange with Dr. Navarro. 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 Patient Instructions: Antibiotic Form, Heart Failure (GEN), Safe Use of Anticoagulants (GEN) Patient Language: [place] Stand Alone Forms: General Discharge Information Follow-up/Referrals: Doc Navarro MD [Physician, Urology] Discharge Medications: New tamsulosin 0.4 mg capsule 0.4 mg PO DAILY Qty: 40 0RF phenazopyridine [Pyridium] 200 mg tablet 200 mg PO TID Qty: 15 0RF solifenacin [Vesicare] 5 mg tablet 5 mg PO DAILY Qty: 40 0RF amoxicillin-pot clavulanate 875-125 mg tablet 1 tablet PO Q12H Qty: 4 0RF Continued fluoxetine 40 mg capsule 40 mg PO DAILY Austedo 9 mg tablet 9 mg PO BID Rexulti 1 mg tablet 2 mg PO DAILY nitroglycerin 0.4 mg tablet, sublingual 0.4 mg sublingual Q5M PRN (Reason: Chest Pain) Qty: 100 0RF Rx Instructions: do not exceed 3 doses per episode omega 2-sit-xfb-fish oil [Fish Oil] 1,000 mg (120 mg-180 mg) capsule 2 cap PO DAILY (DME) Autopen 2 to 42 units Insulin Pen See Rx Instructions .Route Qty: 1 0RF Rx Instructions: glucose < 70 mg/dlFollow hypoglycemia order glucose 70-130 mg/dlNo additional insulin glucose 131-180 mg/dl 2 units sub-Q glucose 181-240 mg/dl 4 units sub-Q glucose 241-300 mg/dl 6 units sub-Q glucose 301-350 mg/dl 8 units sub-Q glucose 351 to 400 mg/dl 10 units above 400 call PCP duloxetine 30 mg capsule,delayed release(DR/EC) 30 mg PO DAILY duloxetine 60 mg capsule,delayed release(DR/EC) 60 mg PO DAILY trazodone 50 mg tablet 50 mg PO HS omeprazole 40 mg capsule,delayed release(DR/EC) See Rx Instructions .ROUTE .COMPLEX Qty: 90 0RF Dose Instruction: Take 1 capsule by mouth once daily Rx Instructions: Take 1 capsule by mouth once daily (DME) pen needle, diabetic 31 gauge x 5/16 needle See Rx Instructions .ROUTE .COMPLEX Qty: 100 3RF Dose Instruction: USE TWICE DAILY WITH LEVIMIR Rx Instructions: USE TWICE DAILY WITH LEVIMIR torsemide 20 mg tablet See Rx Instructions .ROUTE .COMPLEX Qty: 90 3RF Dose Instruction: Take 1 tablet by mouth once daily Rx Instructions: Take 1 tablet by mouth once daily rosuvastatin 40 mg tablet See Rx Instructions .ROUTE .COMPLEX Qty: 90 3RF Dose Instruction: Take 1 tablet by mouth once daily Rx Instructions: Take 1 tablet by mouth once daily primidone 250 mg tablet See Rx Instructions .ROUTE .COMPLEX Qty: 90 3RF Dose Instruction: Take 1 tablet by mouth once daily Rx Instructions: Take 1 tablet by mouth once daily losartan 25 mg tablet See Rx Instructions .ROUTE .COMPLEX Qty: 90 3RF Dose Instruction: Take 1 tablet by mouth once daily Rx Instructions: Take 1 tablet by mouth once daily cholecalciferol (vitamin D3) 1,250 mcg (50,000 unit) capsule 1,250 mcg PO WEEKLY Qty: 12 1RF Mounjaro 15 mg/0.5 mL pen injector 15 mg subcut WEEKLY Qty: 2 6RF gabapentin 800 mg tablet See Rx Instructions .ROUTE .COMPLEX Qty: 270 3RF Dose Instruction: TAKE 1 TABLET BY MOUTH THREE TIMES DAILY Rx Instructions: TAKE 1 TABLET BY MOUTH THREE TIMES DAILY levothyroxine 25 mcg tablet See Rx Instructions .ROUTE .COMPLEX Qty: 90 0RF Dose Instruction: Take 1 tablet by mouth once daily Rx Instructions: Take 1 tablet by mouth once daily levothyroxine 200 mcg tablet See Rx Instructions .ROUTE .COMPLEX Qty: 90 0RF Dose Instruction: TAKE 1 TABLET BY MOUTH ONCE DAILY. TAKE WITH 25MCG TO EQUAL 225MCG DAILY Rx Instructions: TAKE 1 TABLET BY MOUTH ONCE DAILY. TAKE WITH 25MCG TO EQUAL 225MCG DAILY metoprolol succinate 25 mg tablet extended release 24 hr 12.5 mg PO DAILY Qty: 90 3RF insulin glargine [Lantus Solostar U-100 Insulin] 100 unit/mL (3 mL) insulin pen See Rx Instructions .ROUTE .COMPLEX Qty: 15 6RF Dose Instruction: INJECT 25 UNITS SUBCUTANEOUSLY TWICE A DAY Rx Instructions: INJECT 25 UNITS SUBCUTANEOUSLY TWICE A DAY Date of admission: 12/15/24 20:58 Primary Care Provider: Michelle Drake Admitting Provider: Maggie Fuentes Attending physician on admission: Maggie Fuentes Condition: Stable Quality VTE Prophylaxis VTE prophylaxis: mechanical ordered Hospitalist MIPS Heart Failure (Exclusion) Patient has history of Heart Transplant or Left Ventricular Assistive Device?: No IF YES, STOP HERE Heart Failure (Qualifier) Patient has current or prior documentation of LVEF less than or equal to 40%, or mod/servere depressed LVSF?: No IF NO, STOP HERE
--- NOTE | 2024-12-20 10:17 | WPDUROPN2 ---
Progress Note: A&P Assessment and Plan (1) Hydronephrosis with renal calculous obstruction: Code(s): N13.2 - Hydronephrosis with renal and ureteral calculous obstruction Status: Acute Assessment and Plan: - CT A/P with Right 9.6 cm proximal ureteral stone s/p ureteral stent placement 12/26/2024 - Will plan for definitive stone managed with outpatient Right ureteroscopy, Right stent exchange with Dr. Navarro. He expresses his understanding of the plan and agrees to proceed. (2) Ureteral stent present: Code(s): Z96.0 - Presence of urogenital implants Status: Acute Assessment and Plan: - Will discharge pt medical management for ureteral stent symptoms - Tamsulosin 0.4 mg x 30 days - VESIcare 5 mg x 30 days - Pyridium 200 mg TID x 5 days Subjective Subjective Date/Time Seen: 12/20/24 10:17 Interval history: 64-year-old male with a past medical history of chronic kidney disease, treatment resistant depression, PTSD, tardive dyskinesia, uncontrolled diabetes mellitus with diabetic peripheral neuropathy, essential hypertension, coronary artery disease with 1 vessel bypass, GERD and hypothyroidism who presented with complaints of spasming pain in his abdomen. Patient is pleasant lying comfortably in bed. No acute events overnight. patient to discharge today Review of Systems Review of Systems: All systems reviewed & are unremarkable except as noted in HPI and below Exam Const: General: comfortable and no acute distress Eyes: General: appearance normal, both eyes and all related structures Resp: Effort & Inspection: normal respiratory effort Skin: General skin exam: normal color Neuro: Speech: normal speech Psych: Speech and movement: Normal speech and movement present Affect: normal affect Objective Data Vital Signs Vital Signs: Vital Signs - 24 hr 12/19/24 13:43 12/19/24 14:00 12/19/24 20:00 Temperature 98.1 F Pulse Rate 73 Respiratory Rate 18 Blood Pressure 160/78 H Pulse Oximetry 100 Oxygen Delivery Room Air Room Air 12/19/24 21:04 12/20/24 06:00 12/20/24 08:35 Temperature 97.4 F L 97.8 F Pulse Rate 70 66 66 Respiratory Rate 16 16 Blood Pressure 146/81 H 148/80 H Pulse Oximetry 97 99 Oxygen Delivery Intake/Output Intake/Output: Intake & Output 12/17/24 12/18/24 12/19/2422/25 23:59 23:59 23:59 23:59 Intake Total 3216 3500 2837 240 Output Total 3185 3400 2200 Balance 31 100 637 240 Meds/Results Medications: Active Medications Generic Name Dose Route Start Last Admin Trade Name Freq PRN Reason Stop Dose Admin Acetaminophen 650 mg 12/15/24 20:58 12/16/24 09:53 Acetaminophen 325 Mg Tablet PO 650 mg Q4H PRN Administration Mild Pain (1-3) or Fever Hydrocodone Bitart/Acetaminophen 1 tab 12/15/24 20:58 Hydrocodone/Acetaminophen (*Crx) 5-325 Mg Tablet PO Q4H PRN Pain Rated 4-6 Al Hydrox/Mg Hydrox/Simethicone 30 ml 12/16/24 00:25 12/18/24 22:04 Mag Hydrox/Al Hydrox/Simeth 30 Ml Udc PO 30 ml Q6H PRN Administration Indigestion Amoxicillin/Clavulanate Potassium 1 tablet 12/20/24 21:00 Amoxicillin/Clavulanate K 875-125 Mg Tab PO 12/22/24 09:01 Q12HR JAZMÍN Dextrose 12.5 gm 12/15/24 22:02 Dextrose 50% 25 Gm/50 Ml Syringe IV PUSH PRN PRN Hypoglycemia Protocol Duloxetine HCl 30 mg 12/16/24 09:00 12/20/24 08:36 Duloxetine Hcl 30 Mg Capsule. PO 30 mg DAILY JAZMÍN Administration Duloxetine HCl 60 mg 12/16/24 09:00 12/20/24 08:36 Duloxetine Hcl 60 Mg Capsule. PO 60 mg DAILY JAZMÍN Administration Fish Oil 1 gm 12/16/24 09:00 12/20/24 08:35 [place] 3 Polyunsat Fatty Acids 1 Gm Cap PO 1 gm DAILY JAZMÍN Administration Fluoxetine HCl 40 mg 12/16/24 09:00 12/20/24 08:35 Fluoxetine Hcl 20 Mg Capsule PO 40 mg DAILY JAZMÍN Administration Gabapentin 400 mg 12/16/24 21:00 12/20/24 08:36 Gabapentin 400 Mg Capsule PO 400 mg TID@0900,1300,2100 JAZMÍN Administration Glucagon 1 mg 12/15/24 22:02 Glucagon For Inj 1 Mg Vial IM PRN PRN Hypoglycemia Protocol Glucose 15 gm 12/15/24 22:02 Glucose Oral Gel 15 Gm Of Glucse In 37.5 Gm Tube PO PRN PRN Hypoglycemia Protocol Hydralazine HCl 10 mg 12/15/24 22:57 12/16/24 00:29 Hydralazine Hcl 20 Mg/Ml Vial IV PUSH 10 mg Q4H PRN Administration SBP greater than 160 Hydromorphone HCl 0.5 mg 12/15/24 20:58 Hydromorphone Hcl Inj (*Crx) 1 Mg/Ml Syr IV PUSH Q4H PRN Pain Rated 7-10 Dextrose 1,000 mls @ 100 mls/hr 12/15/24 22:02 Dextrose 5% 1,000 Ml IVPB PRN PRN Hypoglycemia Protocol Insulin Aspart 2 - 5 units 12/17/24 12:25 12/20/24 08:37 Insulin Aspart (*Bkc) 100 Units/Ml SUB-Q 2 units TIDWM JAZMÍN Administration Protocol Insulin Glargine 23 units 12/19/24 21:00 12/19/24 21:32 Insulin Glargine (*Bkc) 100 Units/Ml SUB-Q 23 units HS JAZMÍN Administration Levothyroxine Sodium 200 mcg 12/16/24 06:30 12/20/24 06:38 Levothyroxine Sodium 100 Mcg Tablet PO 200 mcg DAILY@0630 JAZMÍN Administration Levothyroxine Sodium 75 mcg 12/16/24 06:30 12/20/24 06:38 Levothyroxine Sodium 75 Mcg Tablet PO 75 mcg DAILY@0630 JAZMÍN Administration Losartan Potassium 25 mg 12/17/24 13:40 12/20/24 08:36 Losartan Potassium 25 Mg Tablet BY MOUTH 25 mg DAILY JAZMÍN Administration Metoprolol Succinate 12.5 mg 12/16/24 09:00 12/20/24 08:35 Metoprolol Succinate Ext Rel 12.5 Mg Tabcr PO 12.5 mg DAILY JAZMÍN Administration Miscellaneous Information 1 each 12/17/24 00:01 Please Clarify Cholecalciferol Dosing XX 01/16/25 00:00 CLARIFY JAZMÍN Home Med ( 1 mg 12/16/24 09:00 12/20/24 08:40 Brexpiprazole [ PO 01/15/25 08:59 1 mg Rexulti] 1 Mg Tablet DAILY JAZMÍN Administration ) Home Med ( 18 mg 12/16/24 09:00 12/20/24 08:40 Deutetrabenazine [ PO 01/15/25 08:59 18 mg [place]] 9 Mg Tablet BID JAZMÍN Administration ) Non-Formulary Medication 1,250 mcg 12/24/24 09:00 Cholecalciferol (Vitamin D3) PO 01/23/25 08:59 WEEKLY JAZMÍN Ondansetron HCl 4 mg 12/15/24 20:58 Ondansetron Inj 4 Mg/2 Ml Vial IV PUSH Q4H PRN Nausea Pantoprazole Sodium 40 mg 12/16/24 09:00 12/20/24 08:36 Pantoprazole 40 Mg Tablet PO 40 mg BID JAZMÍN Administration Primidone 250 mg 12/16/24 09:00 12/20/24 08:35 Primidone 250 Mg Tablet PO 250 mg DAILY JAZMÍN Administration Rosuvastatin Calcium 20 mg 12/16/24 09:00 12/20/24 08:36 Rosuvastatin 20 Mg Tablet PO 20 mg DAILY JAZMÍN Administration Trazodone HCl 50 mg 12/16/24 00:30 12/19/24 21:32 Trazodone Hcl 50 Mg Tablet PO 50 mg HS JAZMÍN Administration Radiology Results: ITS Impressions Abdomen/Pelvis CT 12/15/24 19:29 IMPRESSION: Right hydronephrosis secondary to a 9.6 mm stone in the proximal right ureter. All CT scans at this facility are performed using low dose modulation techniques as appropriate to perform exam including the following: automated exposure control; use of iterative reconstruction technique; adjustment of the mA and/or kV according to patient size (this includes techniques or standardized protocols for targeted exams where dose is matched to indication/reason for exam). Retrograde Pyelogram 12/18/24 07:40 IMPRESSION: 1. Right internal ureteral stent placement. Please refer to real-time procedural findings for details. Labs Labs: Laboratory Results - last 24 hr 12/19/24 12/19/24 12/19/24 11:43 16:39 21:14 WBC RBC Hgb Hct MCV MCH MCHC RDW Plt Count MPV % Immature Plt Fraction Sodium Potassium Chloride Carbon Dioxide Anion Gap BUN Creatinine Estim Creat Clear Calc Estimated GFR Glucose POC Capillary Glucose 364 H 272 H 274 H Calcium 12/20/24 12/20/24 05:34 08:13 WBC 7.4 RBC 3.71 L Hgb 10.6 L Hct 30.3 L MCV 81.7 MCH 28.6 MCHC 35.0 RDW 13.1 Plt Count 142 L MPV 11.1 H % Immature Plt Fraction 6.8 Sodium 132 L Potassium 4.0 Chloride 97 L Carbon Dioxide 27 Anion Gap 8 BUN 26 H Creatinine 1.90 H Estim Creat Clear Calc 43 Estimated GFR 36 L Glucose 261 H POC Capillary Glucose 246 H Calcium 9.9
--- NOTE | 2025-01-05 09:37 | WPDANESEPPF ---
Anes - Initial Pre Proc Eval Procedure: Operation Date: 12/16/24 12:15 Proposed Procedures p Cystoscopy with Stent Removal - Masoud Camp MD Date/Time: 01/05/25 09:37 Surgeon: Samantha Mckinney APRN Pre Op Diagnosis: Obstructing kidney stone, NAS on CKD, dehydration Patient Data Age: 64 Gender: M Height: 1.78 m Weight: 101.9 kg Last Vital Signs Temp 36.6 C 12/20/24 06:00 Pulse 66 12/20/24 08:35 Resp 16 12/20/24 06:00 BP 148/80 H 12/20/24 06:00 Pulse Ox 99 12/20/24 06:00 O2 Del Method Room Air 12/20/24 08:44 O2 Flow Rate 8 12/16/24 13:00 Allergies Allergy/AdvReac Type Severity Reaction Status Date / Time metformin AdvReac Intermediate Unknown Verified 12/15/24 22:55 Home Medications ?Medication ?Instructions ?Recorded ?Confirmed ?Type fluoxetine 40 mg capsule 40 mg PO DAILY 08/13/22 12/15/24 History nitroglycerin 0.4 mg sublingual 0.4 mg sublingual Q5M PRN Chest 10/11/23 12/15/24 Rx tablet Pain #100 tabs omeprazole 40 mg capsule,delayed See Rx Instructions .Route 10/18/23 12/15/24 Rx release .COMPLEX #90 caps omega 6-qdu-hap-fish oil 1,000 mg 2 cap PO DAILY 10/21/23 12/15/24 History (120 mg-180 mg) capsule (Fish Oil) pen needle, diabetic 31 gauge x #100 ea 02/21/24 12/15/24 Rx 07/14 deutetrabenazine 9 mg tablet 9 mg PO BID 03/07/24 12/15/24 History (Austedo) insulin admin supplies (Autopen 2 #1 ea 06/13/24 12/15/24 Rx to 42 units subcutaneous) rosuvastatin 40 mg tablet See Rx Instructions .Route 06/19/24 12/15/24 Rx .COMPLEX #90 tabs torsemide 20 mg tablet See Rx Instructions .Route 06/19/24 12/15/24 Rx .COMPLEX #90 tabs losartan 25 mg tablet See Rx Instructions .Route 06/29/24 12/15/24 Rx .COMPLEX #90 tabs primidone 250 mg tablet See Rx Instructions .Route 06/29/24 12/15/24 Rx .COMPLEX #90 tabs brexpiprazole 1 mg tablet (Rexulti) 2 mg PO DAILY 08/22/24 12/15/24 History cholecalciferol (vitamin D3) 1,250 1,250 mcg PO WEEKLY #12 caps 08/23/24 12/15/24 Rx mcg (50,000 unit) capsule tirzepatide 15 mg/0.5 mL 15 mg (0.5 mL) subcut WEEKLY #2 mL 08/23/24 12/15/24 Rx subcutaneous pen injector (Mounjaro) gabapentin 800 mg tablet See Rx Instructions .Route 09/20/24 12/15/24 Rx .COMPLEX #270 tabs levothyroxine 200 mcg tablet See Rx Instructions .Route 10/16/24 12/15/24 Rx .COMPLEX #90 tabs levothyroxine 25 mcg tablet See Rx Instructions .Route 10/16/24 12/15/24 Rx .COMPLEX #90 tabs metoprolol succinate 25 mg 12.5 mg (1/2 x 25 mg) PO DAILY #90 10/18/24 12/15/24 Rx tablet,extended release 24 hr tabs insulin glargine 100 unit/mL (3 See Rx Instructions .Route 12/12/24 12/15/24 Rx mL) subcutaneous pen (Lantus .COMPLEX #15 mL Solostar U-100 Insulin) duloxetine 30 mg capsule,delayed 30 mg PO DAILY 12/15/24 12/15/24 History release duloxetine 60 mg capsule,delayed 60 mg PO DAILY 12/15/24 12/15/24 History release trazodone 50 mg tablet 50 mg PO HS 12/15/24 12/15/24 History phenazopyridine 200 mg tablet 200 mg PO TID dysuria 5 doses #15 12/18/24 Rx (Pyridium) tabs solifenacin 5 mg tablet (Vesicare) 5 mg PO DAILY Ureteral stent pain 12/18/24 Rx #40 tabs tamsulosin 0.4 mg capsule 0.4 mg PO DAILY Ureteral stent 12/18/24 Rx pain #40 caps amoxicillin 875 mg-potassium 1 tablet PO Q12H #4 tabs 12/20/24 Rx clavulanate 125 mg tablet Patient hx anesthesia problems: none Family hx anesthesia problems: none Results Review: All pre-operative results and documents have been reviewed as part of the pre-operative evaluation. COUNTS INCLUDE 234 BEDS AT THE [facility] Past Medical History Medical History (Updated 12/18/24 @ 11:29 by CESAR Aquino) CAD (coronary artery disease), autologous vein bypass graft CKD (chronic kidney disease) stage 3, GFR 30-59 ml/min Chronic obstructive pulmonary disease Hypertriglyceridemia Erectile dysfunction Vitamin D deficiency Tardive dyskinesia Suicide ideation With most recent hospitalization May 2024 Unspecified atherosclerosis of [place] arteries of extremities, bilateral legs Intravenous drug abuse in remission In remission since 1986 Posttraumatic stress disorder Kidney stones Pancreatitis Diverticulitis Obstructive sleep apnea Intolerant to CPAP Gastroesophageal reflux disease Postablative hypothyroidism Status post radioactive iodine ablation in 1974 Diabetic peripheral neuropathy Insulin dependent type 2 diabetes mellitus Coronary artery disease Hypertension (~2009) Anxiety Depression Recovering alcoholic quit drinking in 1987 Hyperlipidemia Surgical History Surgical History History of coronary artery stent placement History of cardiac catheterization History of inguinal hernia repair History of cholecystectomy History of coronary artery bypass graft x 1 (11/2009) History of cervical spinal surgery C4-C5 C6-C7 laminectomy and fusion Family History Family History Father Diabetes mellitus Heart disease Mother Heart disease Cerebrovascular accident Diabetes mellitus Dementia Unknown Hypertension Cancer Social History Social History (Updated 12/16/24 @ 00:55 by Maggie Fuentes DO) Social History: Surrogate medical decision maker: Brandon Schaefer, brother ([phone]). Code status: Full code. Smoking packs per day: 2 Smoking cigarettes per day: 40.0 Years smoked: 35 Smoking pack-years: 70.00 Smoking status: Former smoker Tobacco type: cigarettes Second hand tobacco smoke exposure: No Smoking end date: 06/28/09 Alcohol intake: former Alcohol use details: Heavy drinker until 1989. Substance use: former Substance use type: opiates and IV drugs Last use: 1987 Do You Feel Safe in your Home?: Yes Lack of Transportation: YES Lack of Food: Sometimes True Current Housing: I Have Housing Concerned About Future Housing: YES Difficulty Paying Gas/Electric Bills: YES Difficulty Paying for Meds: YES Currently Unemployed: No Education: Associate Degree Difficulty w/ Childcare or Family Care: No Living arrangements: other Additional living arrangements comments: low income apartment Occupation/Education: unemployed Additional occupation/education comments: Lost job in late April,. He is on disability due to his psychiatric illness. 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 Spiritual care concerns: No Agree to blood products: Yes Anes - Eval Final PreProcedure Day of Procedure 01/05/25 09:37 Patient weight: obese Heart: regular rate and rhythm Lungs: clear to auscultation Airway: Mallampati scale class II Neurological: alert and oriented Last oral intake: >/= 8 hours ASA classification: IV Emergent: no Anesthetic plan: proceed Anesthesia type and monitoring: general LMA and standard monitoring Results Review: All pre-operative results and documents have been reviewed as part of the pre-operative evaluation. Informed Consent: The patient's anesthetic plan and its attendant risks and benefits were discussed with the patient/family/POA. Questions were solicited and answers provided to the satisfaction of the patient/family/POA.
== END 2024-12-20 13:13 | disposition home or self-care (01) | DRG 660 ==
LOC: ANHED 21:04 → ANH3MED 21:54
PROVIDERS: Nurse Practitioner Family; Urology; Admitting Provider Internal Medicine; Emergency Provider Student in an Organized Health Care Education/Training Program; PCP Nurse Practitioner Adult Health; Visit Provider Nurse Practitioner
PROC: BT1D1ZZ Fluoroscopy of Right Kidney, Ureter and Bladder using Low Osmolar Contrast (ICD-10-PCS; CPT 52310; principal; 2024-12-16 12:15)
DX: N13.2 Hydronephrosis with renal and ureteral calculous obstruction (principal); E87.1 Hypo-osmolality and hyponatremia; N17.9 Acute kidney failure, unspecified; I25.10 Atherosclerotic heart disease of native coronary artery without angina pectoris; I12.9 Hypertensive chronic kidney disease with stage 1 through stage 4 chronic kidney disease, or unspecified chronic kidney disease; J44.9 Chronic obstructive pulmonary disease, unspecified; K21.9 Gastro-esophageal reflux disease without esophagitis; N18.31 Chronic kidney disease, stage 3a; E11.22 Type 2 diabetes mellitus with diabetic chronic kidney disease; E11.42 Type 2 diabetes mellitus with diabetic polyneuropathy; E11.65 Type 2 diabetes mellitus with hyperglycemia; E11.51 Type 2 diabetes mellitus with diabetic peripheral angiopathy without gangrene; E78.00 Pure hypercholesterolemia, unspecified; E86.0 Dehydration; E87.6 Hypokalemia; D72.829 Elevated white blood cell count, unspecified; I70.203 Unspecified atherosclerosis of native arteries of extremities, bilateral legs; E89.0 Postprocedural hypothyroidism; R30.0 Dysuria; R39.15 Urgency of urination; E55.9 Vitamin D deficiency, unspecified; G24.01 Drug induced subacute dyskinesia; E66.9 Obesity, unspecified; N52.9 Male erectile dysfunction, unspecified; F43.10 Post-traumatic stress disorder, unspecified; F32.9 Major depressive disorder, single episode, unspecified; F41.9 Anxiety disorder, unspecified; F10.21 Alcohol dependence, in remission; F11.91 Opioid use, unspecified, in remission; Z91.51 Personal history of suicidal behavior; Z87.898 Personal history of other specified conditions; Z87.442 Personal history of urinary calculi; Z87.19 Personal history of other diseases of the digestive system; Z90.49 Acquired absence of other specified parts of digestive tract; Z98.1 Arthrodesis status; Z68.32 Body mass index [BMI] 32.0-32.9, adult; Z79.4 Long term (current) use of insulin; Z95.1 Presence of aortocoronary bypass graft; Z87.891 Personal history of nicotine dependence; Z87.718 Personal history of other specified (corrected) congenital malformations of genitourinary system; Z95.5 Presence of coronary angioplasty implant and graft
CPT/HCPCS: 36415; 74176; 74420; 80048; 80053; 81001; 82607; 82948; 83605; 83690; 83735; 84100; 84443; 85025; 85027; 85055; 87086; 96374; 97161; 99291; A9270; C1758; C1769; C2617; J0360; J0696; J1815; J2405; J2704; J3475; J3480; J7030; J7040; J7120; Q9966

== ENCOUNTER 2025-02-07 14:34 | Outpatient (CLI) | payer MEDICARE, MEDICAID, SELFPAY ==
[2025-02-07 19:12] LABS: Add Urine Microscopic? YES; Appearance Urine Clear (Clear); Glucose Urine UA 3+ mg/dL (Negative); Leukocyte Esterase Ur Negative LEU/UL (Negative); Nitrate Urine Negative (Negative); Non Pathogenic Casts 0-2; Specific Grav Ur 1.031 (1.001-1.035)
== END 2025-02-07 14:35 | disposition home or self-care (01) ==
PROVIDERS: PCP Nurse Practitioner Adult Health; Visit Provider Urology
DX: N20.1 Calculus of ureter (principal)
CPT/HCPCS: 81001; 87086

== ENCOUNTER 2025-02-08 14:16 | Outpatient (CLI) | payer MEDICARE, MEDICAID, SELFPAY ==
[2025-02-08 18:45] LABS: INR 1.0; Prothrombin Time 12.7 Seconds (11.1-14.7)
[2025-02-08 18:46] LABS: Partial Thromboplastin Time 33.2 Seconds (22.3-36.8)
[2025-02-08 19:33] LABS: Anion Gap 13 mmol/L (4-12); Blood Urea Nitrogen 28 mg/dL (9-20); Calcium 9.9 mg/dL (8.4-10.2); Carbon Dioxide 20 mmol/L (22-30); Chloride 94 mmol/L (98-107); Estimated Glomerular Filt Rate 40; Glucose 507 mg/dL (65-110); Potassium 4.5 mmol/L (3.4-5.0); Sodium 127 mmol/L (137-145)
== END 2025-02-08 14:17 | disposition home or self-care (01) ==
PROVIDERS: PCP Nurse Practitioner Adult Health; Visit Provider Anesthesiology
DX: N17.9 Acute kidney failure, unspecified (principal); E11.65 Type 2 diabetes mellitus with hyperglycemia; R39.9 Unspecified symptoms and signs involving the genitourinary system; R53.83 Other fatigue
CPT/HCPCS: 36415; 80048; 85610; 85730

== ENCOUNTER 2025-02-13 01:40 | Day surgery (SDC) | payer MEDICARE, MEDICAID, SELFPAY ==
[2025-02-08 10:52] VITALS: BMI 31.3
--- NOTE | 2025-02-08 11:07 | PC.NURSE ---
Addendum entered by Jodi Lucas RN 02/08/25 11:14: PT was till on ASA and vitamins up till today, Amaris in Dr Navarro office aware- LM on her VM , pt will hold till post op JRRN Original Note: [facility] has started construction of its new state of the art ER which will open Spring 2026. With this, we anticipate parking may be a challenge for some our surgical patients and families. Parking spaces are limited but are available for all Surgical, obstetrics, and ER patients sharing this lot. If you arrive and find you are having a hard time finding a parking space, please note that we understand the challenges, please drive around the hospital and park near Hospital Entrance 1. When you enter this entrance, you can ask a volunteer to direct or take you back to the surgical waiting area to check in. We appreciate everyone?s understanding of these expected challenges while we build for your future. Report to the Outpatient Waiting Room, entrance under the green pavilion located off [address], at time __06:00am on date _02/13/25 . Planned Procedure Time: _0730am .? Time changes happen often and if your time is changed the preop area will call you the afternoon before. - You and your visitor will be asked to self-screen and do not enter if you have any COVID symptoms. Please call surgeon if you need to reschedule. - A mask is optional within the hospital at this time. Patients may have clear liquids (water, carbonated beverages, clear teas, apple juice) until 3 hours prior to surgery with a maximum of 20 ounces. - No food from midnight until time of surgery and no smoking, or chewing tobacco (or any form of nicotine). No chewing gum, candy or mints. (0430am) Take only the following medications with a SIP of water on the morning of surgery: ____NONE- per pt refuses to take anything that am DO NOT STOP ANY OF YOUR OTHER PRESCRIPTION MEDICATIONS PRIOR TO SURGERY EXCEPT THE FOLLOWING Hold all vitamins, supplements, Aspirin, NSAIDS for [address] Beaver Date to take last dose___02/05/25 ([facility]maris aware of this) Please no make-up, nail vietnamese, hairspray, perfume, deodorant, or body powder the day of surgery.? No jewelry (including any body piercings) or valuables the day of surgery, leave them at home.? Please take a shower or bath the night before, or the morning of, surgery with an antibacterial soap.? Wear comfortable, loose fitting clothing.? Children are encouraged to wear pajamas. - Jewelry must be removed prior to entering the operating room.? Rings and piercings that are not removed may be cut off. - The hospital will not accept responsibility for valuables.? - Please leave all valuables, including medications, at home the day of surgery. If you are going home after surgery, a licensed tractor sweeper driver must drive you home.? - NO public transportation without another adult if you receive anesthesia. - We recommend that an adult stay with you for 24 hours following discharge. - We also recommend that you do not drive, make important decision, drink alcoholic beverages, or take any drugs that were not prescribed by your health care provider for at least 24 hours after your discharge time. Follow any additional instructions given to you from your surgeon. Telephone instructions given to _Patient and asked if any additional questions and then verbalized understanding. Patient advised to call surgeon office or pre surgery nurse liaison [phone] if any additional questions.
--- OUTSIDE RECORDS SUMMARY | 2025-02-13 01:43 | XMS_ITS | Patient Health Record ---
Author Organization [facility] [place] Address [address] [place] [address] Care Team Providers Care Home Coordinator Name Role Phone Michelle Drake APRN Primary Care Provider Bhavya Sin Unavailable [phone] BryantBekah Unavailable [phone] Allergies No Known Allergies Reason For Referral No Information Medications Medication SIG (Take, Route, Frequency, Duration) Notes Start Date End Date Status Insulin Lispro (1 Unit Dial) 100 UNIT/ML Solution Pen-injector Subcutaneous 15 UNITS AC 06/21/2023 Active metFORMIN HCl 1000 MG Tablet 1 tablet with a meal Oral twice a day 06/21/2023 Active Levothyroxine Sodium 200 MCG Tablet Oral in addition to 25 MCG 06/21/2023 Active Gabapentin 800 MG Tablet 1 tablet Orally three times a day Active Torsemide 20 MG Tablet as directed Oral 06/21/2023 Active ULTRA-FINE SHORT PEN NEEDLE 31 gauge x 5/16 NEEDLE, DISPOSABLE MISCELLANEOUS *Reorder from [employer] for eRx and Interaction Alerts* 06/21/2023 Active Levemir FlexPen 100 unit/mL (3 mL) INSULIN PEN (ML) 32 SUBCUTANEOUS bid 06/21/2023 Active Primidone 250 MG Tablet Oral 06/21/2023 Active Austedo 9 MG Tablet 2 tablet with food Orally Twice a day; Duration: 30 days pa approved 02/28/26 Active Tamsulosin HCl 0.4 MG Capsule Oral 06/21/2023 Active Rosuvastatin Calcium 40 MG Tablet Oral 06/21/2023 Active Mounjaro 10 MG/0.5ML Solution Pen-injector as directed Subcutaneous 10 units Active Omeprazole 40 MG Capsule Delayed Release 1 capsule 30 minutes before morning meal Orally Once a day *Pick strength-form from [employer] for eRX* 06/21/2023 Active Levothyroxine Sodium 25 MCG Tablet Oral in addition to 200 mcg 06/21/2023 Active Nitroglycerin 0.4 MG Tablet Sublingual Sublingual 06/21/2023 Active Rexulti 1 MG Tablet 1 tablet Orally Once a day; Duration: 30 days Active Metoprolol Succinate ER 25 MG Tablet [...] Severe recurrent major depression without psychotic features (47766532) Major depressive disorder, recurrent severe without psychotic features (F33.2) 01/08/20 23 Active confirmed Problem Generalized anxiety disorder (42639653) Generalized anxiety disorder (F41.1) 06/21/19 24 Active confirmed Problem Posttraumatic stress disorder (64750690) Post-traumatic stress disorder, chronic (F43.12) 06/21/19 24 Active confirmed Problem Primary insomnia (3090436) Primary insomnia (F51.01) 06/21/19 24 Active confirmed Problem Screening for cardiovascular system disease (978875259) Encounter for screening for cardiovascular disorders (Z13.6) Active confirmed Problem Dietary management surveillance (567528224) Dietary counseling and surveillance (Z71.3) Active confirmed Problem Depression Screening (436607059) Encounter for screening for depression (Z13.31) Active confirmed Problem Long-term current use of drug therapy (539945739) On fpc drug therapy (Z79.899) Active confirmed Problem 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) Active confirmed Problem Essential hypertension (52295787) Benign essential HTN (I10) Active confirmed Vital Signs Heart Rate 82 /min 09/19/2024 Respiratory Rate 16 /min 09/19/2024 Blood pressure diastolic 74 mm Hg 09/19/2024 Height-cm 177.80 cm 09/19/2024 Weight-kg 107.05 kg 09/19/2024 Height 70.00 in 09/19/2024 Blood pressure systolic 116 mm Hg 09/19/2024 Weight 236 lbs 09/19/2024 BMI 33.86 kg/m2 09/19/2024 Encounters Encounter Location Date Provider Diagnosis [facility] [place] [address] [address] 02/17/2024 Bekah Hurtado Major depressive disorder, recurrent severe without psychotic features F33.2 ; Generalized anxiety disorder F41.1 and Post-traumatic stress disorder, chronic F43.12 [facility] [place] [id number] [address] 04/25/2024 Bhavya Lopez 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 ; Major depressive disorder, recurrent severe without psychotic features F33.2 ; Generalized anxiety disorder F41.1 ; Post-traumatic stress disorder, chronic F43.12 and Primary insomnia F51.01 [facility] [address] [address] 07/21/2024 Bhavya Lopez [facility] [place] [id number] [place] [address] 07/27/2024 Bhavya Lopez Encounter for screen ing for depression Z13.31 ; Major depressive disorder, recurrent severe without psychotic features F33.2 ; Encounter for screening for cardiovascular disorders Z13.6 ; Dietary counseling and surveillance Z71.3 ; Benign essential HTN I10 ; 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 ; Generalized anxiety disorder F41.1 ; Post-traumatic stress disorder, chronic F43.12 and Primary insomnia F51.01 [facility], [facility] [address] [place] [address] 08/17/2024 Bhavya Thery [facility], [facility] [address] [place] [address] 09/19/2024 Bhavya Lopez Encounter for screen ing for depression Z13.31 ; Major depressive disorder, recurrent severe without psychotic features F33.2 ; Encounter for screening for cardiovascular disorders Z13.6 ; Dietary counseling and surveillance Z71.3 ; Benign essential HTN I10 ; 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 ; Generalized anxiety disorder F41.1 ; Post-traumatic stress disorder, chronic F43.12 and Primary insomnia F51.01 [facility], [facility] [address] [place] [address] 09/20/2024 Bekah Hurtado Major depressive disorder, recurrent severe without psychotic features F33.2 ; Generalized anxiety disorder F41.1 and Post-traumatic stress disorder, chronic F43.12 [facility], [facility] [address] [place] [address] 11/15/2024 Bekah Hurtado [facility], [facility] [address] [place] [address] 12/12/2024 Bhavyaankit Lopez [facility], [facility] [address] [place] [address] 12/13/2024 Bekah Hurtado [facility], [facility] [address] [place] [address] 05/16/2024 Bhavya Thery 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 [facility], [facility] [address] [place] [address] 06/14/2024 Bahvya Thery 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 [facility], [facility] [address] [place] [address] 06/14/2024 Bhavya Thery 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 [facility], [facility] [address] [place] [address] 07/27/2024 Bhavya Lopez Assessments Encounter Date Diagnosis (ICD Code) Assessment Notes Treatment Notes Treatment Clinical Notes Section Notes 05/16/2024 Medication-induc ed movement disorder (ICD-10 - G25.70) Patient been taking Austedo 12 mg BID Austedo XR 18 mg pa approved per pharmacy sent new script for Austedo XR 24 mg daily to [facility] for PA approval 05/16/24 06/14/2024 Medication-induc ed movement disorder (ICD-10 - G25.70) Electronic Prior Authorization was requested for Austedo XR 24 MG Tablet Extended Release 24 Hour. Provider can order medication once approval received. 04/25/2024 Medication-induc ed movement disorder (ICD-10 - [...] mg twice daily for tardive dyskinesia management- [facility] - He reports increase oral movements [...] regimen during follow-up appointments http_s://www.na mi.org/About-Me ntal-Illness/Me jzxx-Cgrvki-Oyb ditions http_s://psychc entral.com/depr ession/the-cogn itive-symptoms- of-depression#t reatments http__s://www.n [facility].nih.gov/hea [facility]/topics/ment xr-glkgkx-nztlk ations http__s://www.n [facility].org/About-M ental-Illness/T reatments/Menta b-Lcxbma-Mhggpf tions educated on all medications, benefits, side [...] severe without psychotic features (ICD-10 - F33.2) 09/20/2024 Major depressive disorder, recurrent severe without psychotic features (ICD-10 - F33.2) 09/19/2024 Encounter for screening for depression (ICD-10 - Z13.31) 1.Depresson decrease Rexulti 1 mg daily- having increase TD symptoms Having increase depresison, low motivation, interest and insomnia-will schedule therapy SUDEEP monitor DM and BS, monitor B/P see PCP and water sponger - patient schedule to be seen, and [...] mg twice daily for tardive dyskinesia management- [facility] - He reports oral movements and [...] the medication Laboratory tests- obtain from PCP/ [facility] 5. HTN and DM Follow up PCP and water sponger . Follow-up appointments -refer to therapy . Medication management educated on rx, benefits, side effects andrisk - Reassess medication regimen during follow-up appointments http_s://www. mi.org/About-Me ntal-Illness/Me rniq-Udbfau-Fcn ditions http_s://psychc entrAbeelo.com/depr ession/the-cogn itive-symptoms- of-depression#t reatments http__s://www.n [facility].nih.gov/hea [facility]/topics/ment lt-zdtsre-rgwxk ations http__s://www.[facility].org/About-M ental-Illness/T reatments/Menta a-Egohqj-Pnjwxt tions educated on all medications, benefits, side [...] and interactions with prescribed medications.. - 07/27/2024 Major depressive disorder, recurrent severe without [...] and BS, monitor B/P see PCP and water sponger - patient will schedule to be seen, [...] mg twice daily for tardive dyskinesia management- [facility] - He reports oral movements and [...] the medication Laboratory tests- obtain from PCP/ [facility] 5. HTN and DM Follow up PCP and water sponger . Follow-up appointments -refer to therapy . Medication management educated on rx, benefits, side effects andrisk - Reassess medication regimen during follow-up appointments http_s://www. mi.org/About-Me ntal-Illness/Me lbxh-Qqxbjd-Xcy ditions http_s://psychPadinmotion.iConclude/depr ession/the-cogn itive-symptoms- of-depression#t reatments http__s://www.[facility].gov/[facility]/topics/ment pm-rgeghp-xgrms ations http__s://www.[facility].org/About-M ental-Illness/T reatments/Menta e-Bylfjp-Shpsen tions educated on all medications, benefits, side [...] medications.. - 07/27/2024 Encounter for screening for depression (ICD-10 - Z13.31) 1.Depresson Increase Rexulti 2 mg daily Having increase depresison, low motivation, interest and insomnia monitor DM and BS, monitor B/P see PCP and water sponger - patient will schedule to be seen, [...] mg twice daily for tardive dyskinesia management- [facility] - He reports oral movements and [...] the medication Laboratory tests- obtain from PCP/ [facility] 5. HTN and DM Follow up PCP and water sponger . Follow-up appointments -refer to therapy . Medication management educated on rx, benefits, side effects andrisk - Reassess medication regimen during follow-up appointments http_s://www.na mi.org/About-Me ntal-Illness/Me wjyx-Txnsad-Tsb ditions http_s://psychc entral.com/depr ession/the-cogn itive-symptoms- of-depression#t reatments http__s://www.n [facility].nih.gov/hea [facility]/topics/ment zq-hbpagz-ojygv ations http__s://www.n [facility].org/About-M ental-Illness/T reatments/Menta t-Epfnve-Ttzgxe tions educated on all medications, benefits, side [...] neurotoxicity and interactions with prescribed medications.. - 06/14/2024 Medication-induc ed movement disorder (ICD-10 - G25.70) 07/27/2024 Encounter for screening for cardiovascular disorders (ICD-10 - Z13.6) 1.Depresson Increase Rexulti 2 mg daily Having increase depresison, low motivation, interest and insomnia monitor DM and BS, monitor B/P see PCP and water sponger - patient will schedule to be seen, [...] mg twice daily for tardive dyskinesia management- [facility] - He reports oral movements and [...] the medication Laboratory tests- obtain from PCP/ [facility] 5. HTN and DM Follow up PCP and water sponger . Follow-up appointments -refer to therapy . Medication management educated on rx, benefits, side effects andrisk - Reassess medication regimen during follow-up appointments http_s://www. mi.org/About-Me ntal-Illness/Me ifzn-Aigqpq-Yvh ditions http_s://psychc entrAbeelo.com/depr ession/the-cogn itive-symptoms- of-depression#t reatments http__s://www.[facility].nih.gov/a [facility]/topics/ment fj-xjkjnq-tpnxn ations http__s://www.[facility].org/About-M ental-Illness/T reatments/Menta p-Chmqbu-Zjgfet tions educated on all medications, benefits, side [...] 09/20/2024 Generalized anxiety disorder (ICD-10 - F41.1) 02/17/2024 Generalized anxiety disorder (ICD-10 - F41.1) [...] mg twice daily for tardive dyskinesia management- [facility] - He reports increase oral movements [...] regimen during follow-up appointments http_s://www.na mi.org/About-Me ntal-Illness/Me dyxy-Dvojho-Tbz ditions http_s://psychc entrAbeelo.com/depr ession/the-cogn itive-symptoms- of-depression#t reatments http__s://www.[facility].gov/[facility]/topics/ment zd-xldczk-rvqjk ations http__s://www.[facility].org/About-M ental-Illness/T reatments/Menta a-Fxgfjk-Raerxk tions educated on all medications, benefits, side [...] and interactions with prescribed medications.. - 09/19/2024 Major depressive disorder, recurrent severe without [...] and BS, monitor B/P see PCP and water sponger - patient schedule to be seen, and [...] mg twice daily for tardive dyskinesia management- [facility] - He reports oral movements and [...] the medication Laboratory tests- obtain from PCP/ [facility] 5. HTN and DM Follow up PCP and water sponger . Follow-up appointments -refer to therapy . Medication management educated on rx, benefits, side effects andrisk - Reassess medication regimen during follow-up appointments http_s://www.na mi.org/About-Me ntal-Illness/Me ycsz-Cyofej-Qvm ditions http_s://psychc entral.com/depr ession/the-cogn itive-symptoms- of-depression#t reatments http__s://www.n [facility].gov/[facility]ro [facility]/topics/ment wj-godtbv-ndakc ations http__s://www.n [facility].org/About-M ental-Illness/T reatments/Menta q-Ywsllz-Eqylmv tions educated on all medications, benefits, side [...] mg twice daily for tardive dyskinesia management- [facility] - He reports increase oral movements [...] regimen during follow-up appointments http_s://www. mi.org/About-Me ntal-Illness/Me torq-Eutbqd-Qrt ditions http_s://psychc entrAbeelo.com/depr ession/the-cogn itive-symptoms- of-depression#t reatments http__s://www.[facility].nih.gov/hea [facility]/topics/ment tj-nbauce-qqjqx ations http__s://www.[facility].org/About-M ental-Illness/T reatments/Menta t-Jejpbe-Xjplxn tions educated on all medications, benefits, side [...] and BS, monitor B/P see PCP and water sponger - patient schedule to be seen, and [...] mg twice daily for tardive dyskinesia management- [facility] - He reports oral movements and [...] the medication Laboratory tests- obtain from PCP/ [facility] 5. HTN and DM Follow up PCP and water sponger . Follow-up appointments -refer to therapy . Medication management educated on rx, benefits, side effects andrisk - Reassess medication regimen during follow-up appointments http_s://www.na mi.org/About-Me ntal-Illness/Me mlud-Rpuztw-Qgf ditions http_s://psychc LearnSomething.iConclude/depr ession/the-cogn itive-symptoms- of-depression#t reatments http__s://www.[facility].gov/[facility]/topics/ment be-nplxsd-wtszy ations http__s://www.[facility].org/About-M ental-Illness/T reatments/Menta x-Daiitt-Warqmj tions educated on all medications, benefits, side [...] and BS, monitor B/P see PCP and water sponger - patient will schedule to be seen, [...] mg twice daily for tardive dyskinesia management- [facility] - He reports oral movements and [...] the medication Laboratory tests- obtain from PCP/ [facility] 5. HTN and DM Follow up PCP and water sponger . Follow-up appointments -refer to therapy . Medication management educated on rx, benefits, side effects andrisk - Reassess medication regimen during follow-up appointments http_s://www.na mi.org/About-Me ntal-Illness/Me ytcf-Sgbcis-Pcf ditions http_s://psychc entral.com/depr ession/the-cogn itive-symptoms- of-depression#t reatments http__s://www.n [facility].nih.gov/hea [facility]/topics/ment xj-rxzxmq-hbhtt ations http__s://www.n [facility].org/About-M ental-Illness/T reatments/Menta k-Zsxyzn-Qcnnub tions educated on all medications, benefits, side [...] and BS, monitor B/P see PCP and water sponger - patient schedule to be seen, and [...] mg twice daily for tardive dyskinesia management- [facility] - He reports oral movements and [...] the medication Laboratory tests- obtain from PCP/ [facility] 5. HTN and DM Follow up PCP and water sponger . Follow-up appointments -refer to therapy . Medication management educated on rx, benefits, side effects andrisk - Reassess medication regimen during follow-up appointments http_s://www.[facility].org/About-Me ntal-Illness/Me zvpq-Rtapti-Hgc ditions http_s://psychc LearnSomething.com/depr ession/the-cogn itive-symptoms- of-depression#t reatments http__s://www.[facility].gov/a [facility]/topics/ment be-pnngin-xfgwq ations http__s://www.[facility].org/About-M ental-Illness/T reatments/Menta y-Agjqgo-Jkzcbe tions educated on all medications, benefits, side [...] mg twice daily for tardive dyskinesia management- [facility] - He reports increase oral movements [...] regimen during follow-up appointments http_s://www.na mi.org/About-Me ntal-Illness/Me yvbl-Ilhkke-Obx ditions http_s://psychc entral.com/depr ession/the-cogn itive-symptoms- of-depression#t reatments http__s://www.n [facility].nih.gov/hea [facility]/topics/ment by-swiwer-gwvhl ations http__s://www.n ami.org/About-M ental-Illness/T reatments/Menta y-Piglun-Gchhmb tions educated on all medications, benefits, side [...] and BS, monitor B/P see PCP and water sponger - patient will schedule to be seen, [...] mg twice daily for tardive dyskinesia management- [facility] - He reports oral movements and [...] the medication Laboratory tests- obtain from PCP/ [facility] 5. HTN and DM Follow up PCP and water sponger . Follow-up appointments -refer to therapy . Medication management educated on rx, benefits, side effects andrisk - Reassess medication regimen during follow-up appointments http_s://www. mi.org/About-Me ntal-Illness/Me ttjb-Wbisra-Mzn ditions http_s://psychc entrAbeelo.com/depr ession/the-cogn itive-symptoms- of-depression#t reatments http__s://www.[facility].nih.gov/a [facility]/topics/ment yx-fhdifc-umqap ations http__s://www.[facility].org/About-M ental-Illness/T reatments/Menta t-Pwjsdi-Eyryxw tions educated on all medications, benefits, side [...] and BS, monitor B/P see PCP and water sponger - patient schedule to be seen, and [...] mg twice daily for tardive dyskinesia management- [facility] - He reports oral movements and [...] the medication Laboratory tests- obtain from PCP/ [facility] 5. HTN and DM Follow up PCP and water sponger . Follow-up appointments -refer to therapy . Medication management educated on rx, benefits, side effects andrisk - Reassess medication regimen during follow-up appointments http_s://www.na mi.org/About-Me ntal-Illness/Me muyt-Jysuqh-Hrs ditions http_s://psychc LearnSomething.iConclude/depr ession/the-cogn itive-symptoms- of-depression#t reatments http__s://www.n [facility].nih.gov/a [facility]/topics/ment bq-bzbwzh-ibisp ations http__s://www.n [facility].org/About-M ental-Illness/T reatments/Menta k-Ggqpfv-Uqcksw tions educated on all medications, benefits, side [...] mg twice daily for tardive dyskinesia management- [facility] - He reports increase oral movements [...] - Reassess medication regimen during follow-up appointments http_s://www.[facility].org/About-Me ntal-Illness/Me bepm-Njtnhw-Gtb ditions http_s://psychc entral.com/depr ession/the-cogn itive-symptoms- of-depression#t reatments http__s://www.[facility].nih.gov/[facility]ro [facility]/topics/ment rg-mvgdyf-azgwt ations http__s://www.[facility].org/About-M ental-Illness/T reatments/Menta y-Zxnbfq-Xdedkj tions educated on all medications, benefits, side [...] and BS, monitor B/P see PCP and water sponger - patient will schedule to be seen, [...] mg twice daily for tardive dyskinesia management- [facility] - He reports oral movements and [...] the medication Laboratory tests- obtain from PCP/ [facility] 5. HTN and DM Follow up PCP and water sponger . Follow-up appointments -refer to therapy . Medication management educated on rx, benefits, side effects andrisk - Reassess medication regimen during follow-up appointments http_s://www. mi.org/About-Me ntal-Illness/Me ilfe-Dytepn-Tlu ditions http_s://psychc LearnSomething.iConclude/depr ession/the-cogn itive-symptoms- of-depression#t reatments http__s://www.[facility].gov/[facility]/topics/ment cx-mhtlic-rwztp ations http__s://www.[facility].org/About-M ental-Illness/T reatments/Menta i-Xdthlo-Pnysxc tions educated on all medications, benefits, side [...] and BS, monitor B/P see PCP and water sponger - patient will schedule to be seen, [...] mg twice daily for tardive dyskinesia management- [facility] - He reports oral movements and [...] the medication Laboratory tests- obtain from PCP/ [facility] 5. HTN and DM Follow up PCP and water sponger . Follow-up appointments -refer to therapy . Medication management educated on rx, benefits, side effects andrisk - Reassess medication regimen during follow-up appointments http_s://www.na mi.org/About-Me ntal-Illness/Me lqra-Hggveo-Fhi ditions http_s://psychc entral.com/depr ession/the-cogn itive-symptoms- of-depression#t reatments http__s://www.n [facility].nih.gov/a [facility]/topics/ment on-gpjpoi-jcxhi ations http__s://www.n [facility].org/About-M ental-Illness/T reatments/Menta c-Wpovzf-Lnesbb tions educated on all medications, benefits, side [...] and BS, monitor B/P see PCP and water sponger - patient schedule to be seen, and [...] mg twice daily for tardive dyskinesia management- [facility] - He reports oral movements and [...] the medication Laboratory tests- obtain from PCP/ [facility] 5. HTN and DM Follow up PCP and water sponger . Follow-up appointments -refer to therapy . Medication management educated on rx, benefits, side effects andrisk - Reassess medication regimen during follow-up appointments http_s://www. mi.org/About-Me ntal-Illness/Me fzig-Xidkia-Yla ditions http_s://psychc entral.com/depr ession/the-cogn itive-symptoms- of-depression#t reatments http__s://www.[facility].nih.gov/a [facility]/topics/ment lv-qkvoix-oqpwq ations http__s://www.[facility].org/About-M ental-Illness/T reatments/Menta p-Leevkp-Uuniko tions educated on all medications, benefits, side [...] and BS, monitor B/P see PCP and water sponger - patient will schedule to be seen, [...] mg twice daily for tardive dyskinesia management- [facility] - He reports oral movements and [...] the medication Laboratory tests- obtain from PCP/ [facility] 5. HTN and DM Follow up PCP and water sponger . Follow-up appointments -refer to therapy . Medication management educated on rx, benefits, side effects andrisk - Reassess medication regimen during follow-up appointments http_s://www.na mi.org/About-Me ntal-Illness/Me tcbr-Wuugop-Son ditions http_s://psychPadinmotion.iConclude/depr ession/the-cogn itive-symptoms- of-depression#t reatments http__s://www.[facility].nih.gov/a [facility]/topics/ment dt-tytijr-kknka ations http__s://www.[facility].org/About-M ental-Illness/T reatments/Menta k-Lhayjn-Azhhyq tions educated on all medications, benefits, side [...] and BS, monitor B/P see PCP and water sponger - patient schedule to be seen, and [...] mg twice daily for tardive dyskinesia management- [facility] - He reports oral movements and [...] the medication Laboratory tests- obtain from PCP/ [facility] 5. HTN and DM Follow up PCP and water sponger . Follow-up appointments -refer to therapy . Medication management educated on rx, benefits, side effects andrisk - Reassess medication regimen during follow-up appointments http_s://www.na mi.org/About-Me ntal-Illness/Me jocc-Vlhmiz-Jhv ditions http_s://psychc entral.com/depr ession/the-cogn itive-symptoms- of-depression#t reatments http__s://www.n [facility].nih.gov/hea [facility]/topics/ment tq-dkeqjp-uxyzc ations http__s://www.n [facility].org/About-M ental-Illness/T reatments/Menta k-Nnlwwb-Mlfeme tions educated on all medications, benefits, side [...] and BS, monitor B/P see PCP and water sponger - patient schedule to be seen, and [...] mg twice daily for tardive dyskinesia management- [facility] - He reports oral movements and [...] the medication Laboratory tests- obtain from PCP/ [facility] 5. HTN and DM Follow up PCP and water sponger . Follow-up appointments -refer to therapy . Medication management educated on rx, benefits, side effects andrisk - Reassess medication regimen during follow-up appointments http_s://www.[facility].org/About-Me ntal-Illness/Me yrav-Upswxw-Zxl ditions http_s://Reactivity.iConclude/depr ession/the-cogn itive-symptoms- of-depression#t reatments http__s://www.[facility].gov/[facility]/topics/ment fn-xfetjl-hwqzu ations http__s://www.[facility].org/About-M ental-Illness/T reatments/Menta a-Ykjfdm-Qgmhoj tions educated on all medications, benefits, side [...] and BS, monitor B/P see PCP and water sponger - patient will schedule to be seen, [...] mg twice daily for tardive dyskinesia management- [facility] - He reports oral movements and [...] the medication Laboratory tests- obtain from PCP/ [facility] 5. HTN and DM Follow up PCP and water sponger . Follow-up appointments -refer to therapy . Medication management educated on rx, benefits, side effects andrisk - Reassess medication regimen during follow-up appointments http_s://www.na mi.org/About-Me ntal-Illness/Me djxy-Maiagv-Eas ditions http_s://psychc entral.com/depr ession/the-cogn itive-symptoms- of-depression#t reatments http__s://www.[facility].nih.gov/[facility]ro [facility]/topics/ment hc-klougd-ksibc ations http__s://www.n ami.org/About-M ental-Illness/T reatments/Menta u-Hzqohv-Ungdjd tions educated on all medications, benefits, side [...] and BS, monitor B/P see PCP and water sponger - patient schedule to be seen, and [...] mg twice daily for tardive dyskinesia management- [facility] - He reports oral movements and [...] the medication Laboratory tests- obtain from PCP/ [facility] 5. HTN and DM Follow up PCP and water sponger . Follow-up appointments -refer to therapy . Medication management educated on rx, benefits, side effects andrisk - Reassess medication regimen during follow-up appointments http_s://www.na mi.org/About-Me ntal-Illness/Me zrpc-Rwqget-Vhb ditions http_s://psychPadinmotion.iConclude/depr ession/the-cogn itive-symptoms- of-depression#t reatments http__s://www.n [facility].nih.gov/hea [facility]/topics/ment tx-sxjuyl-jtywp ations http__s://www.[facility].org/About-M ental-Illness/T reatments/Menta t-Cwmexa-Uuymfx tions educated on all medications, benefits, side [...] and interactions with prescribed medications.. - 02/17/2024 Other Cleint reports he has a [...] without using your hands.3. Strength Training Exercises- Zfb-vh-lfqwn: rise from a chair repeatedly.- Wall push-ups: [...] and BS, monitor B/P see PCP and water sponger - patient schedule to be seen, and [...] mg twice daily for tardive dyskinesia management- [facility] - He reports oral movements and [...] the medication Laboratory tests- obtain from PCP/ [facility] 5. HTN and DM Follow up PCP and water sponger . Follow-up appointments -refer to therapy . Medication management educated on rx, benefits, side effects andrisk - Reassess medication regimen during follow-up appointments http_s://www.na mi.org/About-Me ntal-Illness/Me kzwb-Csongt-Djc ditions http_s://psychc entral.com/depr ession/the-cogn itive-symptoms- of-depression#t reatments http__s://www.n [facility].nih.gov/hea [facility]/topics/ment pf-desuup-tvlni ations http__s://www.n [facility].org/About-M ental-Illness/T reatments/Menta r-Mgaebi-Wmbhpo tions educated on all medications, benefits, side [...] Insured Coverage Start Date Coverage End Date [facility] Medicare Replacement/ Advantage - Ppo [address] [address] [place] [address] [id number] JACQUELIN CONRAD Self - patient is the insured [place] [address] [address] [place] [address] [id number] JACQUELIN CONRAD Self - patient is the insured Medical (General) History Medical History History ICD Code Problems: Chronic post-traumatic stress disorder Generalized anxiety disorder Intermittent explosive disorder Mild recurrent major depression Primary insomnia Severe recurrent major depression , Surgical History Surgery Date(Month/Year) Heart surgery 2009 Cardiac stent 2009 & 2018 Cervical laminectomy (179072365) 1999 & 2000 Repair of inguinal hernia (49222044) 201 2 & 2013 Cardiac stent 06/16/2009 Heart surgery 12/16/2009 Removal of gallbladder (99625) 9
--- OUTSIDE RECORDS SUMMARY | 2025-02-13 01:43 | XMS_ITS | Data Portability ---
Author Organization [facility] Villarreal Address [address] [place] [address] Care Team Providers Care Garnett Feeder Name Role Phone UZIEL LANDIN Primary Care Provider Assessment No assessment recorded. Plan of Treatment Reminders Order Date Submit Date Provider Last Modified By Organization Details Last Modified Time Details Appointments None recorded. Lab HbA1c (hemoglobi n A1c), blood 2017 018 JAIR BARNETT, Maurilio sean Gannon, [facility] [address], [place], [address], 8 09:22:41 CMP, serum or plasma 2017 018 JIAR BARNETT, [facility], [facility] [address], [place], [address], 8 09:22:39 CBC 2017 018 [facility], [facility] [address], [place], [address], 8 09:22:40 TSH, ultra-sens itive, serum 2017 018 JAIR BARNETT, [facility], [facility] [address], [place], [address], 8 09:22:41 lipid panel, serum 2017 018 [facility]ilio [facility] [address], [address], [place], [address], 8 09:22:40 HbA1c (hemoglobi n A1c), blood 2017 018 JAIR [facility], [address], [address], [place], [address], 8 09:16:14 microalbum in/creatin ine, mass ratio, urine 2017 018 JAIR [facility], [address], [address], [place], [address], 8 09:16:13 TSH, ultra-sens itive, serum 2017 018 JAIR [facility], [facility], [address], [place], [address], 8 09:16:14 CBC 2017 018 JAIR [facility], [facility], [address], [place], [address], 8 09:16:12 CMP, serum or plasma 2017 018 JAIR [facility], [facility] sean [address]annon, [address], [place], [address], 8 09:16:11 lipid panel, serum 2017 018 JAIR [facility], [facility] se[facility] [address]annon, [address], [place], [address], 8 09:16:13 hemoglobin , qualitativ e, stool by immunologi c method 2016 017 edytarick [facility], [facility], [address], [place], [address], 8 14:33:45 Referral None recorded. Procedures None recorded. Surgeries None recorded. Imaging None recorded. Medication Orders fenofibrat e 160 mg tablet 2017 018 INTERFACE [facility] [address] [place], [address], 8 13:17:21 Lantus U-100 Insulin 100 unit/mL subcutaneo us solution 2017 018 nsuthan Not available 8 12:55:57 Novolog U-100 Insulin aspart 100 unit/mL subcutaneo us solution 2017 018 INTERFACE Not available 8 08:59:54 lisinopril 20 mg tablet 2016 017 INTERFACE [facility] [address] [place], [address], 7 09:49:50 amoxicilli n 500 mg tablet 2016 [facility] [address] [place], [address], 7 13:54:30 Patient TargetsNo targets recorded. Patient Instructions Encounter Date Encounter Id Patient Instructions Last Modified By Organization Details Last Modified Time 08/19/2016 [id number] Take meds as prescribed Healthy ADA diet/ exercise f/u in 3 month nsuthan Not available 08/19/2016 09:23:02 01/06/2017 [id number] eating healthy foods: care instructions nsuthan Not available 01/06/2017 13:53:19 Take meds as prescribed Healthy ADA diet/ exercise f/u in 1 month nsuthan Not available 01/06/2017 13:52:47 02/05/2017 [id number] Take meds as prescribed Healthy ADA diet/ exercise f/u in 3 month nsuthan Not available 02/05/2017 09:49:35 05/20/[id number] Take meds as prescribed Healthy ADA diet/ exercise f/u in 3 month nsuthan Not available 05/20/2017 09:08:20 09/27/2017 [id number] diabetes healthy eating nsuthan Not available 09/27/2017 [...] [facility] ([facility]) [address] [place], [address], 01/30/2017 07:11:26 01/30/20 17 01/30/2017 CMP, serum or plasm a BUN 14 mg/dL 6-24 Not Available [facility] ([facility]) [address] [place], [address], 01/30/2017 07:11:26 01/30/20 17 01/30/2017 CMP, serum or plasm a creatinine, serum 1.12 mg/dL 0.76-1 .27 Not Available [facility] ([facility]) [address] [place], [address], 01/30/2017 07:11:26 01/30/20 17 01/30/2017 CMP, serum or plasm a eGFR if nonafricn AM 73 mL/mi n/1.7 3 >59 Not Available [facility] ([facility]) [address] [place], [address], 01/30/2017 07:11:26 01/30/20 17 01/30/2017 CMP, serum or plasm a eGFR if africn AM 84 mL/mi n/1.7 3 >59 Not Available [facility] ([facility]) [address] [place], [address], 01/30/2017 07:11:26 01/30/20 17 01/30/2017 CMP, serum or plasm a BUN/creatini ne ratio 13 9-20 Not Available [facility] ([facility]) [address] [place], [address], 01/30/2017 07:11:26 01/30/20 17 01/30/2017 CMP, serum or plasm a sodium, serum 137 mmol/ L 134-14 4 Not Available [facility] ([facility]) [address] [place], [address], 01/30/2017 07:11:26 01/30/20 17 01/30/2017 CMP, serum or plasm a potassium, serum 4.8 mmol/ L 3.5-5. 2 Not Available [facility] ([facility]) [address] [place], [address], 01/30/2017 07:11:26 01/30/20 17 01/30/2017 CMP, serum or plasm a chloride, serum 97 mmol/ L 96-106 Not Available [facility] ([facility]) [address] [facility], [place], [address], 01/30/2017 07:11:26 01/30/20 17 01/30/2017 CMP, serum or plasm a carbon dioxide, total 22 mmol/ L 18-29 Not Available [facility] ([facility]) [address] [place], [address], 01/30/2017 07:11:26 01/30/20 17 01/30/2017 CMP, serum or plasm a calcium, serum 9.5 mg/dL 8.7-10 .2 Not Available [facility] ([facility]) [address] [place], [address], 01/30/2017 07:11:26 01/30/20 17 01/30/2017 CMP, serum or plasm a protein, total, serum 7.3 g/dL 6.0-8. 5 Not Available [facility] ([facility]) [address] [facility] [place], [address], 01/30/2017 07:11:26 01/30/20 17 01/30/2017 CMP, serum or plasm a albumin, serum 4.9 g/dL 3.5-5. 5 Not Available [facility] ([facility] [address] [facility] [place], [address], 01/30/2017 07:11:26 01/30/20 17 01/30/2017 CMP, serum or plasm a globulin, total 2.4 g/dL 1.5-4. 5 Not Available [facility] ([facility] [address] [facility] [place], [address], 01/30/2017 07:11:26 01/30/20 17 01/30/2017 CMP, serum or plasm a A/G ratio 2.0 1.2-2. 2 Not Available [facility] ([facility]) [address] [facility] [place], [address], 01/30/2017 07:11:26 01/30/20 17 01/30/2017 CMP, serum or plasm a bilirubin, total 1.0 mg/dL 0.0-1. 2 Not Available [facility] ([facility]) [address] [facility] [place], [address], 01/30/2017 07:11:26 01/30/20 17 01/30/2017 CMP, serum or plasm a alkaline phosphatase, S 87 IU/L 39-117 Not Available [facility] ([facility]) [address] [facility] [place], [address], 01/30/2017 07:11:26 01/30/20 17 01/30/2017 CMP, serum or plasm a AST (SGOT) 23 IU/L 0-40 Not Available [facility] ([facility]) [address] [facility] [place], [address], 01/30/2017 07:11:26 01/30/20 17 01/30/2017 CMP, serum or plasm a ALT (SGPT) 23 IU/L 0-44 Not Available [facility] ([facility]) [address] [facility], [place], [address], 01/30/2017 07:11:26 01/30/20 17 01/30/2017 lipid panel , serum cholesterol, total 154 mg/dL 100-19 9 Not Available [facility] ([facility]) [address] [facility], [place], [address], 01/30/2017 07:11:26 01/30/20 17 01/30/2017 lipid panel , serum triglyceride s 122 mg/dL 0-149 Not Available [facility] ([facility]) [address] [facility], [place], [address], 01/30/2017 07:11:26 01/30/20 17 01/30/2017 lipid panel , serum HDL cholesterol 35 mg/dL >39 below low normal Not Available [facility] ([facility]) [address] [facility], [place], [address], 01/30/2017 07:11:26 01/30/20 17 01/30/2017 lipid panel , serum VLDL cholesterol sebastián 24 mg/dL 5-40 Not Available [facility] ([facility]) [address] [facility], [place], [address], 01/30/2017 07:11:26 01/30/20 17 01/30/2017 lipid panel , serum LDL cholesterol calc 95 mg/dL 0-99 Not Available [facility] ([facility]) [address] [facility], [place], [address], 01/30/2017 07:11:26 01/30/20 17 01/30/2017 lipid panel , serum comment: [employer] Not Available [facility] ([facility]) [address] [facility], [place], [address], 01/30/2017 07:11:26 01/30/20 17 01/30/2017 HbA1c (hemo globi n A1c), blood hemoglobin A1C 9.2 % 4.8-5. 6 above high normal Pre-d iabet es: 5.7 - 6.4 Diabe catherine: >6.4 Glyce can contr ol for adult s with diabe catherine: <7.0 Not Available [facility] ([facility]) [address] [place], [address], 01/30/2017 07:11:27 01/30/20 17 01/30/2017 TSH, ultra -sens itive , serum TSH 1.740 uIU/m L 0.450- 4.500 Not Available [facility] ([facility]) [address] [place], [address], 01/30/2017 07:11:27 05/21/19 18 05/21/2017 CMP, serum or plasm a glucose, serum 227 mg/dL 65-99 above high normal Not Available [facility] ([facility]) [address] [place], [address], 05/21/2017 09:16:11 05/21/19 18 05/21/2017 CMP, serum or plasm a BUN 22 mg/dL 6-24 Not Available [facility] ([facility]) [address] [place], [address], 05/21/2017 09:16:11 05/21/19 18 05/21/2017 CMP, serum or plasm a creatinine, serum 1.31 mg/dL 0.76-1 .27 above high normal Not Available [facility] ([facility]) [address] [place], [address], 05/21/2017 09:16:11 05/21/19 18 05/21/2017 CMP, serum or plasm a eGFR if nonafricn AM 60 mL/mi n/1.7 3 >59 Not Available [facility] ([facility]) [address] [place], [address], 05/21/2017 09:16:11 05/21/19 18 05/21/2017 CMP, serum or plasm a eGFR if africn AM 69 mL/mi n/1.7 3 >59 Not Available [facility] ([facility]) [address] [facility] [place], [address], 05/21/2017 09:16:11 05/21/19 18 05/21/2017 CMP, serum or plasm a BUN/creatini ne ratio 17 9-20 Not Available [facility] ([facility]) [address] [place], [address], 05/21/2017 09:16:11 05/21/19 18 05/21/2017 CMP, serum or plasm a sodium, serum 134 mmol/ L 134-14 4 Not Available [facility] ([facility]) [address] [place], [address], 05/21/2017 09:16:11 05/21/19 18 05/21/2017 CMP, serum or plasm a potassium, serum 4.7 mmol/ L 3.5-5. 2 Not Available [facility] ([facility]) [address] [place], [address], 05/21/2017 09:16:11 05/21/19 18 05/21/2017 CMP, serum or plasm a chloride, serum 93 mmol/ L 96-106 below low normal Not Available [facility] ([facility]) [address] [place], [address], 05/21/2017 09:16:11 05/21/19 18 05/21/2017 CMP, serum or plasm a carbon dioxide, total 22 mmol/ L 18-29 Not Available [facility] ([facility]) [address] [place], [address], 05/21/2017 09:16:11 05/21/19 18 05/21/2017 CMP, serum or plasm a calcium, serum 9.4 mg/dL 8.7-10 .2 Not Available [facility] ([facility]) [address] [place], [address], 05/21/2017 09:16:11 05/21/19 18 05/21/2017 CMP, serum or plasm a protein, total, serum 7.6 g/dL 6.0-8. 5 Not Available [facility] ([facility]) [address] [facility] [place], [address], 05/21/2017 09:16:11 05/21/19 18 05/21/2017 CMP, serum or plasm a albumin, serum 4.5 g/dL 3.5-5. 5 Not Available [facility] ([facility]) [address] [facility] [place], [address], 05/21/2017 09:16:11 05/21/19 18 05/21/2017 CMP, serum or plasm a globulin, total 3.1 g/dL 1.5-4. 5 Not Available [facility] ([facility]) [address] [facility] [place], [address], 05/21/2017 09:16:11 05/21/19 18 05/21/2017 CMP, serum or plasm a A/G ratio 1.5 1.2-2. 2 Not Available [facility] ([facility]) [address] [facility] [place], [address], 05/21/2017 09:16:11 05/21/19 18 05/21/2017 CMP, serum or plasm a bilirubin, total 0.4 mg/dL 0.0-1. 2 Not Available [facility] ([facility]) [address] [facility] [place], [address], 05/21/2017 09:16:11 05/21/19 18 05/21/2017 CMP, serum or plasm a alkaline phosphatase, S 83 IU/L 39-117 Not Available [facility] ([facility]) [address] [facility] [place], [address], 05/21/2017 09:16:11 05/21/19 18 05/21/2017 CMP, serum or plasm a AST (SGOT) 24 IU/L 0-40 Not Available [facility] ([facility]) [address] [place], [address], 05/21/2017 09:16:11 05/21/19 18 05/21/2017 CMP, serum or plasm a ALT (SGPT) 42 IU/L 0-44 Not Available [facility] ([facility]) [address] [place], [address], 05/21/2017 09:16:11 05/21/19 18 05/21/2017 CBC WBC 8.7 x10e3 /uL 3.4-10 .8 Not Available [facility] ([facility]) [address] [place], [address], 05/21/2017 09:16:12 05/21/19 18 05/21/2017 CBC RBC 5.36 x10e6 /uL 4.14-5 .80 Not Available [facility] ([facility]) [address] [facility] [place], [address], 05/21/2017 09:16:12 05/21/19 18 05/21/2017 CBC hemoglobin 15.5 g/dL 13.0-1 7.7 Not Available [facility] ([facility]) [address] [facility] [place], [address], 05/21/2017 09:16:12 05/21/19 18 05/21/2017 CBC hematocrit 46.9 % 37.5-5 1.0 Not Available [facility] ([facility]) [address] [facility] [place], [address], 05/21/2017 09:16:12 05/21/19 18 05/21/2017 CBC MCV 88 fL 79-97 Not Available [facility] ([facility]) [address] [facility] [place], [address], 05/21/2017 09:16:12 05/21/19 18 05/21/2017 CBC MCH 28.9 pg 26.6-3 3.0 Not Available [facility] ([facility]) [address] [facility] [place], [address], 05/21/2017 09:16:12 05/21/19 18 05/21/2017 CBC MCHC 33.0 g/dL 31.5-3 5.7 Not Available [facility] ([facility]) [address] [facility] [place], [address], 05/21/2017 09:16:12 05/21/19 18 05/21/2017 CBC RDW 13.6 % 12.3-1 5.4 Not Available [facility] ([facility]) [address] [facility] [place], [address], 05/21/2017 09:16:12 05/21/19 18 05/21/2017 CBC platelets 237 x10e3 /uL 150-37 9 Not Available [facility] ([facility]) [address] [facility] [place], [address], 05/21/2017 09:16:12 05/21/19 18 05/21/2017 CBC NRBC [employer] Not Available [facility] ([facility]) [address] [facility] [place], [address], 05/21/2017 09:16:12 05/21/19 18 05/21/2017 lipid panel , serum cholesterol, total 250 mg/dL 100-19 9 above high normal Not Available [facility] ([facility]) [address] [facility] [place], [address], 05/21/2017 09:16:12 05/21/19 18 05/21/2017 lipid panel , serum triglyceride s 572 mg/dL 0-149 alert high Not Available [facility] ([facility]) [address] [facility] [place], [address], 05/21/2017 09:16:12 05/21/19 18 05/21/2017 lipid panel , serum HDL cholesterol 34 mg/dL >39 below low normal Not Available [facility] ([facility]) [address] [place], [address], 05/21/2017 09:16:12 05/21/19 18 05/21/2017 lipid panel , serum VLDL cholesterol sebastián Commen t mg/dL 5-40 The calcu latio n for the VLDL nate stero l is not valid when trigl yceri de level is >400 mg/dL . Not Available [facility] ([facility]) [address] [facility], [place], [address], 05/21/2017 09:16:12 05/21/19 18 05/21/2017 lipid panel , serum LDL cholesterol calc Commen t mg/dL 0-99 Trigl yceri de resul t indic ated is too high for an accur ate LDL nate stero l estim ation . Not Available [facility] ([facility]) [address] [facility], [place], [address], 05/21/2017 09:16:12 05/21/19 18 05/21/2017 lipid panel , serum comment: [employer] Not Available [facility] ([facility]) [address] [facility], [place], [address], 05/21/2017 09:16:12 05/21/19 18 05/21/2017 micro album in/cr eatin ine, mass ratio , urine creatinine, urine 109.2 mg/dL not estab. Not Available [facility] ([facility]) [address] [place], [address], 05/21/2017 09:16:13 05/21/19 18 05/21/2017 micro album in/cr eatin ine, mass ratio , urine albumin, urine 7.3 ug/mL not estab. Not Available [facility] ([facility]) [address] [place], [address], 05/21/2017 09:16:13 05/21/19 18 05/21/2017 micro album in/cr eatin ine, mass ratio , urine alb/creat ratio 6.7 mg/g_ creat 0.0-30 .0 Not Available [facility] ([facility]) [address] [place], [address], 05/21/2017 09:16:13 05/21/19 18 05/21/2017 HbA1c (hemo globi n A1c), blood hemoglobin A1C 8.7 % 4.8-5. 6 above high normal Pre-d iabet es: 5.7 - 6.4 Diabe catherine: >6.4 Glyce can contr ol for adult s with diabe catherine: <7.0 Not Available [facility] ([facility]) [address] [place], [address], 05/21/2017 09:16:14 05/21/19 18 05/21/2017 TSH, ultra -sens itive , serum TSH 23.160 uIU/m L 0.450- 4.500 above high normal Not Available [facility] ([facility]) [address] [place], [address], 05/21/2017 09:16:14 09/28/19 18 09/28/2017 CMP, serum or plasm a glucose 203 mg/dL 65-99 above high normal Not Available [facility] ([facility]) [address] [place], [address], 09/28/2017 09:22:39 09/28/19 18 09/28/2017 CMP, serum or plasm a BUN 22 mg/dL 6-24 Not Available [facility] ([facility]) [address] [place], [address], 09/28/2017 09:22:39 09/28/19 18 09/28/2017 CMP, serum or plasm a creatinine 0.92 mg/dL 0.76-1 .27 Not Available [facility] ([facility]) [address] [place], [address], 09/28/2017 09:22:39 09/28/19 18 09/28/2017 CMP, serum or plasm a eGFR if nonafricn AM 92 mL/mi n/1.7 3 >59 Not Available [facility] ([facility]) [address] [facility] [place], [address], 09/28/2017 09:22:39 09/28/19 18 09/28/2017 CMP, serum or plasm a eGFR if africn AM 106 mL/mi n/1.7 3 >59 Not Available [facility] ([facility]) [address] [facility] [place], [address], 09/28/2017 09:22:39 09/28/19 18 09/28/2017 CMP, serum or plasm a BUN/creatini ne ratio 24 9-20 above high normal Not Available [facility] ([facility]) [address] [facility] [place], [address], 09/28/2017 09:22:39 09/28/19 18 09/28/2017 CMP, serum or plasm a sodium 137 mmol/ L 134-14 4 Not Available [facility] ([facility]) [address] [facility] [place], [address], 09/28/2017 09:22:39 09/28/19 18 09/28/2017 CMP, serum or plasm a potassium 4.7 mmol/ L 3.5-5. 2 Not Available [facility] ([facility]) [address] [facility] [place], [address], 09/28/2017 09:22:39 09/28/19 18 09/28/2017 CMP, serum or plasm a chloride 99 mmol/ L 96-106 Not Available [facility] ([facility]) [address] [facility] [place], [address], 09/28/2017 09:22:39 09/28/19 18 09/28/2017 CMP, serum or plasm a carbon dioxide, total 23 mmol/ L 20-29 Not Available [facility] ([facility]) [address] [facility] [place], [address], 09/28/2017 09:22:39 09/28/19 18 09/28/2017 CMP, serum or plasm a calcium 10.0 mg/dL 8.7-10 .2 Not Available [facility] ([facility]) [address] [facility] [place], [address], 09/28/2017 09:22:39 09/28/19 18 09/28/2017 CMP, serum or plasm a protein, total 7.5 g/dL 6.0-8. 5 Not Available [facility] ([facility]) [address] [facility] [place], [address], 09/28/2017 09:22:39 09/28/19 18 09/28/2017 CMP, serum or plasm a albumin 5.1 g/dL 3.5-5. 5 Not Available [facility] ([facility]) [address] [place], [address], 09/28/2017 09:22:39 09/28/19 18 09/28/2017 CMP, serum or plasm a globulin, total 2.4 g/dL 1.5-4. 5 Not Available [facility] ([facility]) [address] [facility] [place], [address], 09/28/2017 09:22:39 09/28/19 18 09/28/2017 CMP, serum or plasm a A/G ratio 2.1 1.2-2. 2 Not Available [facility] ([facility]) [address] [place], [address], 09/28/2017 09:22:39 09/28/19 18 09/28/2017 CMP, serum or plasm a bilirubin, total 0.2 mg/dL 0.0-1. 2 Not Available [facility] ([facility]) [address] [facility] [place], [address], 09/28/2017 09:22:39 09/28/19 18 09/28/2017 CMP, serum or plasm a alkaline phosphatase 75 IU/L 39-117 Not Available [facility] ([facility]) [address] [facility] [place], [address], 09/28/2017 09:22:39 09/28/19 18 09/28/2017 CMP, serum or plasm a AST (SGOT) 18 IU/L 0-40 Not Available [facility] ([facility]) [address] [facility] [place], [address], 09/28/2017 09:22:39 09/28/19 18 09/28/2017 CMP, serum or plasm a ALT (SGPT) 29 IU/L 0-44 Not Available [facility] ([facility]) [address] [facility] [place], [address], 09/28/2017 09:22:39 09/28/19 18 09/28/2017 CBC WBC 9.2 x10e3 /uL 3.4-10 .8 Not Available [facility] ([facility]) [address] [facility] [place], [address], 09/28/2017 09:22:40 09/28/19 18 09/28/2017 CBC RBC 5.35 x10e6 /uL 4.14-5 .80 Not Available [facility] ([facility]) [address] [facility] [place], [address], 09/28/2017 09:22:40 09/28/19 18 09/28/2017 CBC hemoglobin 15.6 g/dL 13.0-1 7.7 Not Available [facility] ([facility]) [address] [facility] [place], [address], 09/28/2017 09:22:40 09/28/19 18 09/28/2017 CBC hematocrit 45.7 % 37.5-5 1.0 Not Available [facility] ([facility]) [address] [facility] [place], [address], 09/28/2017 09:22:40 09/28/19 18 09/28/2017 CBC MCV 85 fL 79-97 Not Available [facility] ([facility]) [address] [place], [address], 09/28/2017 09:22:40 09/28/19 18 09/28/2017 CBC MCH 29.2 pg 26.6-3 3.0 Not Available [facility] ([facility]) [address] [place], [address], 09/28/2017 09:22:40 09/28/19 18 09/28/2017 CBC MCHC 34.1 g/dL 31.5-3 5.7 Not Available [facility] ([facility]) [address] [place], [address], 09/28/2017 09:22:40 09/28/19 18 09/28/2017 CBC RDW 13.9 % 12.3-1 5.4 Not Available [facility] ([facility]) [address] [facility] [place], [address], 09/28/2017 09:22:40 09/28/19 18 09/28/2017 CBC platelets 202 x10e3 /uL 150-37 9 Not Available [facility] ([facility]) [address] [facility] [place], [address], 09/28/2017 09:22:40 09/28/19 18 09/28/2017 CBC NRBC [employer] Not Available [facility] ([facility]) [address] [facility] [place], [address], 09/28/2017 09:22:40 09/28/19 18 09/28/2017 lipid panel , serum cholesterol, total 314 mg/dL 100-19 9 above high normal Not Available [facility] ([facility]) [address] [facility] [place], [address], 09/28/2017 09:22:40 09/28/19 18 09/28/2017 lipid panel , serum triglyceride s 701 mg/dL 0-149 alert high Not Available [facility] ([facility]) [address] [place], [address], 09/28/2017 09:22:40 09/28/19 18 09/28/2017 lipid panel , serum HDL cholesterol 39 mg/dL >39 below low normal Not Available [facility] ([facility]) [address] [place], [address], 09/28/2017 09:22:40 09/28/19 18 09/28/2017 lipid panel , serum VLDL cholesterol sebastián Commen t mg/dL 5-40 The calcu latio n for the VLDL nate stero l is not valid when trigl yceri de level is >400 mg/dL . Not Available [facility] ([facility]) [address] [facility], [place], [address], 09/28/2017 09:22:40 09/28/19 18 09/28/2017 lipid panel , serum LDL cholesterol calc Commen t mg/dL 0-99 Trigl yceri de resul t indic ated is too high for an accur ate LDL nate stero l estim ation . Not Available [facility] ([facility]) [address] [place], [address], 09/28/2017 09:22:40 09/28/19 18 09/28/2017 lipid panel , serum comment: [employer] Not Available [facility] Lab) [address] [place], [address], 09/28/2017 09:22:40 09/28/19 18 09/28/2017 HbA1c (hemo globi n A1c), blood hemoglobin A1C 9.7 % 4.8-5. 6 above high normal Pre-d iabet es: 5.7 - 6.4 Diabe catherine: >6.4 Glyce can contr ol for adult s with diabe catherine: <7.0 Not Available [facility] ([facility]) [address] [place], [address], 09/28/2017 09:22:41 09/28/19 18 09/28/2017 TSH, ultra -sens itive , serum TSH 30.990 uIU/m L 0.450- 4.500 above high normal Not Available [facility] ([facility]) [address], [place], [address], 09/28/2017 09:22:41 Result Notes None recorded. Problems Name Problem SNOMED Code Status Onset Date Resolution Date Notes Provider Name and Address Organization Details Recorded Time Essential hypertension 99632260 Active Uziel Landin MD Attn: Lamar june,[address] [facility], [place], [address], [place] [facility] 6 11:24:56 Uncontrolled type 2 diabetes mellitus 121175476 Active Uziel Landin MD Attn: Lamar june,[address] [place], [address], [place] [facility] 6 11:24:56 Hyperlipidemia 00601380 Active Uziel Landin MD Attn: Lamar june,[address] [place], [address], [place] [facility] 6 11:24:56 Hypothyroidism 37777832 Active pt is on 225 mcg ( 8) Uziel Landin MD Attn: Lamar june,[address] [facility], [place], [address], [place] [facility] 8 10:00:08 Coronary arterioscleros is 32268179 Active s/p stent and CABG 05/2009 and 0 Uziel Landin MD Attn: Lamar june,[address] [facility], [place], [address], [place] [facility] 6 11:24:56 Obesity 314612508 Active Uziel Landin MD Attn: Lamar june,[address] [place], [address], [place] [facility] 6 11:24:56 Benign prostatic hyperplasia without outflow obstruction 520684809 Active Uziel Landin MD Attn: Lamar g,[address] [facility], [place], [address], [facility] 6 11:24:56 Tinea pedis 9030322 Active Uziel Landin MD Attn: Lamar june,[address] [facility], [place], [address], [facility] 6 11:24:56 Liver enzymes outside reference range 883259677 Active Uziel Landin MD Attn: Lamar slade,[address] [facility], [place], [address], [facility] 6 11:24:56 Mixed anxiety and depressive disorder 284798894 Active Uziel Landin MD Attn: Lamar june,[address] [facility], [place], [address], [facility] 6 11:24:56 Indigestion 217910658 Active Uziel Landin MD Attn: Tylorgisela june,[address] [facility], [place], [address], [facility] 6 11:24:56 Problem Notes None recorded. Procedures Surgical History Date Name Laterality Status Provider Name and Address Organization Details Recorded Time 0 [facility] 15:47:22 0 [facility] 15:47[facility]22 Arthrd ant arthur/xoral c1-c2 completed [facility] 12/19/2015 10:18:35 Hernia Repair completed [facility] 1 10:17:29 Imaging Results None recorded. Procedure [...] rate Respiratory rate Body temperature Oxygen saturation Systolic And Diastolic Provider Name and Address Organization Details Last Updated DateTime 8 177.8 cm 38.8 kg/m2 617967. 1 g 68 /min 14 /min 98.8 [degF] 98 % 128/84 mm[Hg] [facility] 8 08:38:37 Date Recorded Body height Body mass index (BMI) Body weight Heart rate Respiratory rate Body temperature Oxygen saturation Systolic And Diastolic Provider Name and Address Organization Details Last Updated DateTime 7 177.8 cm 38.2 kg/m2 408467. 29 g 79 /min 12 /min 98.7 [degF] 95 % 138/88 mm[Hg] [facility] 7 09:01:09 Date Recorded Body height Body mass index (BMI) Body weight Heart rate Respiratory rate Body temperature Oxygen saturation Systolic And Diastolic Systolic And Diastolic Provider Name and Address Organization Details Last Updated DateTime 8 177.8 cm 37.8 kg/m2 238544. 15 g 72 /min 14 /min 98.7 [degF] 97 % 144/92 mm[Hg] 140/94 mm[Hg] [facility] 8 12:28:24 Date Recorded Body height Body mass index (BMI) Body weight Heart rate Respiratory rate Body temperature Oxygen saturation Systolic And Diastolic Provider Name and Address Organization Details Last Updated DateTime 7 177.8 cm 37.4 kg/m2 868172. 25 g 70 /min 12 /min 98.6 [degF] 97 % 150/96 mm[Hg] [facility] 7 11:36:04 Date Recorded Body height Body mass index (BMI) Body weight Heart rate Respiratory rate Body temperature Oxygen saturation Systolic And Diastolic Provider Name and Address Organization Details Last Updated DateTime 7 177.8 cm 37.3 kg/m2 207251. 02 g 65 /min 16 /min 98.5 [degF] 98 % 136/88 mm[Hg] DAVE Fam [facility] 7 09:25:45 Social History Question Answer Notes LastModified by [employer] Details LastModified Time Tobacco Smoking Status Former Smoker Quit - 2009 [facility], [place] [facility] 12/19/2015 10:13:03 What Is Your Level Of [...] Functional Status Question Answer Note LastModified by [employer] Details LastModified Time What is your level of alcohol consumption? 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 JUST HIRED AT [employer] Information not available 08/19/2016 What is your [...] Response Coronary Artery Disease Y Other N Atrial Fibrillation N High Blood Pressure Y Thyroid Problems Y Kidney or Bladder Problems Y Depression N COPD N Blood Clots N GI Problems N Skin Problems N Anemia N Heart Attack (CT) N Diabetes Y Anxiety Disorder Y Muscle, Joint, or Bone Problems N Seizures/Epilepsy N Acid Reflux (GERD) N Cancer Y Stroke N Allergies N Asthma N High Cholesterol Y Hepatitis N Liver Disease N Headaches N Osteoporosis N Heart Failure Y Immunizations Vaccine Type Date Status Note Provider Nam e and Address Organization Details Recorded Time Tdap 0 completed [facility] 06/18/2016 09:22:45 pneumococcal polysaccharide PPV23 6 completed Not Available [facility] 03/18/2019 02:30:16 Past Encounters Encounter ID Performer Location Encounter Start Date Encounter Closed Date Diagnosis/Indication Diagnosis SNOMED-CT Code Diagnosis ICD10 Code Diagnosis IMO Codes Diagnosis Note [id number] MD Silvestre Hamm (Adult Med) [address] [place] [address] 09/12/2014 14:46:34 09/12/2014 17:19:25 Essential hypertension 78428245 Patient is not medication s. Start Lisinopril 10 mg po daily. Advised low salt diet,regul ar exercise and weight reduction. Uncontroll ed type 2 diabetes mellitus 832298013 Start Glipizide 5 mg po bid. Start Metformin 500 mg po bid Hyperlipidemia 03804513 Hypothyroidism 52549905 Ad vised patient to call office and confirm the dose of Levothyrox ine. Chek TSH. Coronary arteriosclerosis 88319905 Advised patient to take aspirin 81 mg po daily. Patient has insurance to follow the Cardiologi st. Obesity 327001810 Advised 1500 calory low fat,low calory,low carb diet,regul ar exercise and weight reduction. [id number] MD Silvestre Hamm (Adult Med) [address] [place] [address] 09/19/2014 15:48:56 09/19/2014 17:02:55 Uncontrolled type 2 diabetes mellitus 692016134 Increase the Glipizide 5 mg po 2 tabs bid. Increase the Metformin 500 mg 2 tabs po bid Essential hypertension 33673106 Continue Lisinopril 10 mg po daily. Advised low salt diet,regul ar exercise and weight reduction. Hyperlipidemia 22957874 Co ntinue Pravastati n. Triglyceri christopher were high. Advised patient to decrease the consumptio n of sweets,sug ars,drinks ,soda. Regular exercise and weight reduction. Hypothyroidism 39252107 TS H is low and Free T4 is high. Decrease the Levothyrox ine to 200 mcg po daily. Repeat the TSH in 6 weeks. [id number] MD Silvestre Hamm (Adult Med) [address] [place] [address] 04/04/2015 14:39:25 04/05/2015 10:44:24 Uncontrolled type 2 diabetes mellitus 243744759 E11.65 HBA1C 9.4. Patient only takes Metformin and Glipizide once daily. Advised patient to take the Metformin 1000 mg po bid and Glipizide 10 mg po bid. Repeat the HBA1C in 3 months. Essential hypertension 42518099 I10 Continue Lisinopril 10 mg po daily. Advised low salt diet,regul ar exercise and weight reduction. Hyperlipidemia 29102128 E78.2 Continue Pravastati n. LDL 86 Advised patient to decrease the consumptio n of sweets,sug ars,drinks ,soda. Regular exercise and weight reduction. Benign pro static hyperplasia without outflow obstruction 318274731 N40.0 c/o nocturnal frquency. Advised patient not drink fluids before bed time. Administra tion of pneumococcal vaccine 62719545 Z23 Tinea pedis 8353222 B35. 3 Liver enzy mes outside reference range 932385782 R94.5 Patient is not drinking alcohol. Liver enzymes normal on 10/30/14. Repeat the LFTs in 1 month. Screening for malignant neoplasm of prostate 671669026 Z12.5 Screening for malignant neoplasm of colon 795070217 Z12.11 [id number] MD Silvestre Hamm (Adult Med) [address] [place] [address] 07/11/2015 09:11:59 07/11/2015 11:14:04 Uncontrolled type 2 diabetes mellitus 704109577 E11.65 HBA1C 9.4. Patient forgot to do the labs. Continue Metformin 1000 mg po bid and Glipizide 10 mg po bid. Repeat the HBA1C today. Patient has no insurance. Essential hypertension 87488868 I10 Blood pressure well controlled . Continue Lisinopril 10 mg po daily. Advised low salt diet,regul ar exercise and weight reduction. Hyperlipidemia 95827300 E78.2 LDL 86. Continue Pravastati n. Patient will do labs today. Advised patient to decrease the consumptio n of sweets,sug ars,drinks ,soda. Regular exercise and weight reduction. Hypothyroidism 68501266 E03.9 Continue Levothyrox ine to 200 mcg po daily. Repeat the TSH. Obesity 130438108 E66.9 Advised 1500 calory low fat,low calory,low carb diet,regul ar exercise and weight reduction. Coronary arteriosclerosis 45993864 I25.10 Advised patient to take aspirin 81 mg po daily. Patient has no insurance to see the Cardiologi [id number] MD Silvestre Leger (Adult Med) [address] [place] [address] 08/14/2015 14:17:50 08/14/2015 15:53:02 Uncontrolled type 2 diabetes mellitus 684539165 E11.65 Increase Toujeo 20 units daily Reduce Glipizide 10 mg once a day Essential hypertension 77343585 I10 continue Lisinopril and Metoprolol Hyperlipidemia 28499016 E78.2 with TG Discontinu e Pravastati n start pt on Crestor 20 mg daily ( pt does not have insurance )-sample given Hypothyroidism 32783081 E03.8 continue Levothyrox in 225 mcg daily Coronary arteriosclerosis 65884351 I25.10 s/p stent 05/2009 and 11/2009 last stress test was 2012 pt is not seeing cardio at present time- pt is planning to have insurance in near future Mixed anxi ety and depressive disorder 650360762 F41.8 start pt on Prozac 20 mg daily [id number] MD Silvestre Leger (Adult Med) [address] [place] [address] 09/30/2015 09:53:47 09/30/2015 16:26:56 Uncontrolled type 2 diabetes mellitus 271440894 E11.65 pt is not taking insulin for a wk ( ran out med ) Increase Toujeo 30 units daily continue Glipizide 10 mg once a day Hypothyroidism 60103795 E03.8 continue Levothyrox in 225 mcg daily Mixed anxi ety and depressive disorder 826511418 F41.8 Increase Prozac 40 mg daily Essential hypertension 96474614 I10 continue Lisinopril and Metoprolol Hyperlipidemia 66622017 E78.2 with TG Change Crestor to Simvastati n ( no insurance for pt ) Coronary arteriosclerosis 10045137 I25.10 s/p stent 05/2009 and 11/2009 last stress test was 2012 pt is not seeing cardio at present time- pt is planning to have insurance in near future Indigestion 966384332 R1 0.13 with history of gallstone pt to avoid fatty food will do us of gallbladde r when he gets insurance [id number] MD Silvestre Leger (Adult Med) [address] [place] [address] 12/19/2015 09:33:36 12/19/2015 16:37:35 Mixed anxiety and depressive disorder 927829403 F41.8 Increase Prozac 60 ( 40 with 20 mg ) mg daily pt to see psychiatri st declined to see counsellor -tried in the past and did not help Essential hypertension 65243992 I10 pt did not take meds today continue lisinopril and metoprolol for now reassess Uncontroll ed type 2 diabetes mellitus 931667262 E11.65 continue Toujeo 30 units daily /metformin e continue Glipizide 10 mg once a day Hypothyroidism 42285498 E03.8 continue Levothyrox in 225 mcg daily Hyperlipidemia 13462462 E78.2 with TG Change Crestor to Simvastati n ( no insurance for pt ) [id number] MD Silvestre Leger (Adult Med) [address] [place] [address] 01/21/2016 10:53:23 01/21/2016 12:18:38 Essential hypertension 23834465 I10 fair control pt to continue lisinopril and metoprolol for now reassess with next apt Diastasis recti 51568583 M62.08 pt is reassuredp t to avoid exercises such as heavy lifting which may make it worse [id number] [facility] [address] [place] [address] 03/03/2016 08:24:07 03/03/2016 14:26:02 Mixed anxiety and depressive disorder 976725699 F41.8 Increased Prozac 60 ( 40 with 20 mg ) mg daily pt to see psychiatri st pt has apt with counsellor Essential hypertension 34049078 I10 continue lisinopril and metoprolol for now low salt diet and exercise Uncontroll ed type 2 diabetes mellitus 420314752 E11.65 Increase Toujeo 40 units daily with Novolog sliding scaleconti nue metformine Discontinu ed Glipizidep t to call with blood sugars Hypothyroidism 67413416 E03.8 continue Levothyrox in 200 mcg daily Hyperlipidemia 01191055 E78.2 with TGcontinue Simvastati n [id number] [facility] [address] [place] [address] 06/18/2016 08:49:42 06/18/2016 13:55:40 Essential hypertension 36009827 I10 elevated due to noncomplia nt with med continue lisinopril and metoprolol for now low salt diet and exercise Hyperlipidemia 41340555 E78.2 with TG/ elevated TG due to uncontroll ed DM and thyroidcon tinue Simvastati nAdd fenofibrat e -pt to use [facility] pharmacy[facility] to go to ER any symptoms of pancreatit is -discussed with pt Uncontroll ed type 2 diabetes mellitus 275374648 E11.65 Increase Toujeo 50 units daily pt stopped Novolog sliding scale on his own .-pt to restart novolog with sliding scaleconti nue metformine pt to call with blood sugars in 1 wk Hypothyroidism 53475623 E03.8 not well controlled due to noncomplia nt with med -back on med for last 2 wks continue Levothyrox in 200 mcg daily for now and recheck in 2 month Mixed anxi ety and depressive disorder 123392287 F41.8 continue Prozac 60 ( 40 with 20 mg ) mg daily pt to see psychiatri st pt did not see counsellor [id number] [facility] [address] [place] [address] 08/14/2016 08:45:32 08/18/2016 15:54:01 Acute bronchitis 05001042 J20.9 [id number] Uziel Landin MD [facility] (Adult Med) [address] [place] [address] 08/19/2016 08:51:36 08/19/2016 11:04:10 Essential hypertension 88329098 I10 continue lisinopril and metoprolol for now low salt diet and exercise Uncontroll ed type 2 diabetes mellitus 750168961 E11.65 Increase Toujeo 55 units daily with novolog with sliding scaleconti nue metformine pt to do labs Mixed anxi ety and depressive disorder 898351504 F41.8 improving continue Prozac 60 ( 40 with 20 mg ) mg daily pt did not see counsellor Coronary arteriosclerosis 23670630 I25.10 s/p stent and CABGstable on current meds Acute bronchitis 0377228 2 J20.9 keep hydratedRe turn to clinic if problem continues [id number] Uziel Landin MD [facility] (Adult Med) [address] [place] [address] 01/06/2017 08:47:34 01/11/2017 15:06:36 Essential hypertension 12430841 I10 not well controlled due to noncomplia nt with meds continue lisinopril and metoprolol for now low salt diet and exercise Hyperlipidemia 47027677 E78.2 with TG/ elevated TG due to uncontroll ed DM and thyroidcon tinlakisha Simvastati npt is on fenofibrat e -pt to use [facility] pharmacypt to go to ER any symptoms of pancreatit is -discussed with pt Uncontroll ed type 2 diabetes mellitus 948169885 E11.65 noncomplia nt with insulin and medspt to take Toujeo 55 units daily with novolog with sliding scale continue metformine pt to do labs Mixed anxi ety and depressive disorder 251409021 F41.8 continue Prozac 60 ( 40 with 20 mg ) mg daily pt did not see counsellor [id number] MD Silvestre Leger (Adult Med) [address] [place] [address] 02/05/2017 09:13:23 02/08/2017 17:43:10 Essential hypertension 24629245 I10 pt to increase lisinopril 20 mg daily pt is not taking metoprolol ( HR is in 60's without metoprolol ) low salt diet and exercise Hyperlipidemia 66562470 E78.2 with TG/ elevated TG due to uncontroll ed DM and thyroidcon tinue Simvastati npt is not taking fenofibrat e due to cost -pt to use [facility] Uncontroll ed type 2 diabetes mellitus 487228378 E11.65 Improving slowlypt to take Toujeo 60 units daily with novolog with sliding scale continue metformine Hypothyroidism 31420692 E03.8 stable continue Levothyrox in 200 mcg daily Mixed anxi ety and depressive disorder 687228491 F41.8 continue Prozac 60 ( 40 with 20 mg ) mg daily pt did not see counsellor Coronary arteriosclerosis 65579691 I25.10 s/p stent and CABGcontin ue current meds including asa Screening for malignant neoplasm of colon 211840455 Z12.11 pt does not have insurance for colonoscop y [facility] [address] [place] [address] 05/20/2017 08:24:18 05/21/2017 08:48:16 Essential hypertension 22615399 I10 stable pt to continue lisinopril 20 mg daily pt is not taking metoprolol ( HR is in 60's without metoprolol ) low salt diet and exercise Uncontroll ed type 2 diabetes mellitus 950836506 E11.65 Improving slowlypt to take Toujeo 60 units daily with novolog with sliding scale continue metformine Coronary arteriosclerosis 82337027 I25.10 s/p stent and CABGcontin ue current meds including asa Mixed anxi ety and depressive disorder 863574021 F41.8 continue Prozac 60 ( 40 with 20 mg ) mg daily pt did not see counsellor Hypothyroidism 22088372 E03.8 stable continue Levothyrox in 200 mcg daily [id number] [facility] [address] [place] [address] 09/27/2017 11:50:45 09/29/2017 10:54:21 Essential hypertension 27545659 I10 fair control due to anxiety regarding job ( missed days , fear of loosing job) pt to continue lisinopril 20 mg daily low salt diet and exercise Coronary arteriosclerosis 26757285 I25.10 s/p stent and CABGcontin ue current meds including asa Mixed anxi ety and depressive disorder 284511211 F41.8 fair control continue Prozac 60 ( 40 with 20 mg ) mg daily pt did not see counsellor Hypothyroidism 38276810 E03.8 continue Levothyrox in 200 mcg daily Uncontroll ed type 2 diabetes mellitus 822803921 E11.65 not well controlled due to noncomplia nt with novologpt to increase Levemir 70 units daily with novolog ( 100-150 -5 units , 151-200-10 units , 201-250-15 units , 251-300-20 units , 251-300-25 units , 301-350 -30 units )with sliding scale continue metformine Hyperlipidemia 89924132 E78.5 not well controlled / not taking [...] Wang Member ID Guarantor Name 06/12/2019 1 [facility] [id number] Leeroy Schaefer [id number] Leeroy Schaefer 06/12/2019 1 *SELF PAY* [...] 200 per pt .). For labs, patient reports last a1c result: 12.0. Hypertension F/UReported by PatientHPIFor [...] duration, patient reportssymptoms lasting over 2 weeks. Uziel Landin MD Attn: Accounting ,[address] [place], [address] , [facility] 08/19/2016 09:23:57 017 text/h tml HyperlipidemiaReported by PatientHPIFor type of hyperlipidemia, patient reportscombined. For duration, patient reportschronic. For compliance, patient reportsnoncompliant. For complications, patient reportscoronary artery disease (s/p stent and cabg). For risk factors, patient reportsdiabetes,hypertension, andobesity. For prior tests, patient reportshighest triglyceride level: (0861). Diabetes F/UReported by PatientHPIFor context, patient reportsnot [...] . Uziel Landin MD Attn: Accounting ,[address] [place], [address] , [facility] 01/06/2017 13:55:13 017 text/h tml HyperlipidemiaReported by [...] . Uziel Landin MD Attn: Accounting ,[address] [place], [address] , [facility] 02/05/2017 09:56:07 018 text/h tml HyperlipidemiaReported by PatientHPIFor type of hyperlipidemia, patient reportscombined. For duration, patient reportschronic. For compliance, patient reportsnoncompliant. For complications, patient reportscoronary artery disease (s/p stent and cabg). For risk factors, patient reportsdiabetes,hypertension, andobesity. For prior tests, patient reportshighest triglyceride level: (4941). Diabetes F/UReported by PatientHPIFor context, patient reportsnot [...] insulin. Uziel Landin MD Attn: Accounting ,[address] [facility], [place], [address] , [facility] 05/20/2017 09:09:20 018 text/h tml [...] . Uziel Landin MD Attn: Accounting ,[address] [place], [address] , [facility] 09/28/2017 14:20:48
--- NOTE | 2025-02-13 07:19 | SUR.PREOP ---
pt blood glucose was 562 when obtained in the pre-op area. Dr. Navarro was called. Per MD OR case was cancelled and patient was transferred to the ER.
--- NOTE | 2025-02-13 07:56 | SUR.PREOP ---
Pt transferred to ED per MD Navarro orders. Patient was taken to triage via wheel chair around 0700.
== END 2025-02-13 07:58 | disposition other institution (70) ==
PROVIDERS: PCP Nurse Practitioner Adult Health; Visit Provider Urology
PROC: (CPT 52352; principal; 2025-02-13 07:30)
DX: N20.0 Calculus of kidney (principal); E11.65 Type 2 diabetes mellitus with hyperglycemia; Z53.09 Procedure and treatment not carried out because of other contraindication
CPT/HCPCS: 82948; 99211; G0463

== ENCOUNTER 2025-02-13 06:49 | Emergency (ER) | payer MEDICARE, MEDICAID, SELFPAY ==
[2025-02-13 06:51] VITALS: BP 148/87; PULSE 69; RESP 20; TEMP 36.6; O2SAT 98
[2025-02-13 07:16] VITALS: BP 153/87; PULSE 69; RESP 16; O2SAT 98
[2025-02-13 07:48] LABS: Hematocrit 38.5 % (42.0-52.0); Hemoglobin 13.3 g/dL (14.0-18.0); Immature Granulocyte Percent A 0.5 % (0-0.5); Lymphocytes Absolute Auto 1.62 K/mm3 (0.9-3.2); Mean Corpuscular HGB Conc 34.5 g/dl (32-36); Mean Corpuscular Hemoglobin 29.4 pg (26-34); Mean Corpuscular Volume 85.0 fl (80-100); Nucleated Red Blood Cells Absolute Auto 0.000 K/mm3 (0.0-0.012); Nucleated Red Blood Cells Perc 0.0 % (0.0-0.2); Platelet Count Result 184 k/mm3 (150-375); Red Blood Count 4.53 M/mm3 (4.6-6.20); White Blood Count 7.6 K/mm3 (4.5-10.0)
[2025-02-13 08:13] LABS: Add Urine Microscopic? YES; Appearance Urine Clear (Clear); Glucose Urine UA 3+ mg/dL (Negative); Leukocyte Esterase Ur Negative LEU/UL (Negative); Nitrate Urine Negative (Negative); Non Pathogenic Casts 0-2; Specific Grav Ur 1.032 (1.001-1.035)
[2025-02-13 08:16] LABS: Alanine Aminotransferase 35 U/L (6-50); Albumin Level 4.3 g/dL (3.5-5.1); Alkaline Phosphatase 80 U/L (38-126); Anion Gap 10 mmol/L (4-12); Aspartate Amino Transferase 31 U/L (17-59); Bilirubin,Total 0.8 mg/dL (0.2-1.3); Blood Urea Nitrogen 35 mg/dL (9-20); Calcium 9.2 mg/dL (8.4-10.2); Carbon Dioxide 21 mmol/L (22-30); Chloride 95 mmol/L (98-107); Estimated CRCL calculation 58 ml/min; Estimated Glomerular Filt Rate 51; Glucose 597 mg/dL (65-110); Potassium 4.3 mmol/L (3.4-5.0); Sodium 126 mmol/L (137-145); Total Protein 7.7 g/dL (6.3-8.2)
--- NOTE | 2025-02-13 08:17 | ED_ITS ---
HPI - General Adult General Chief complaint: Unspecified Stated complaint: High blood sugar Time Seen by Provider: 02/13/25 07:05 History of Present Illness HPI narrative: Patient had been admitted for septic stone s/p stent, with plan for definitive treatment today however when is blood sugar was checked in preop it was found to be over 500 so he was sent to ER. Patient does admit that he has been eating a lot of carbs recently, he is also unsure if his insulin pens are working since his insulin sat outside for about a day. Related Data Home Medications ?Medication ?Instructions ?Recorded ?Confirmed ?Last Taken ?Type fluoxetine 40 mg capsule 40 mg PO DAILY 08/13/2201/2910/07/22 History deutetrabenazine 9 mg tablet 9 mg PO BID 03/07/2401/29 Unknown History (Austedo) brexpiprazole 1 mg tablet (Rexulti) 1 mg PO DAILY 07/3102/08/25 Unknown History duloxetine 30 mg capsule,delayed 30 mg PO DAILY 02/08/25 Unknown History release duloxetine 60 mg capsule,delayed 60 mg PO DAILY 02/08/25 Unknown History release trazodone 50 mg tablet 50 mg PO HS 12/15/24 5 Unknown History aspirin 81 mg tablet 81 mg PO DAILY 02/08/2501/2902/07/25 History Held on 02/08/25. Instructions: .Provider Order losartan 25 mg tablet See Rx Instructions .Route . COMPLEX 02/08/25 02/08/25 Unknown History omeprazole 40 mg capsule,delayed See Rx Instructions . Route .COMPLEX 02/08/25 02/08/25 Unknown History release primidone 250 mg tablet See Rx Instructions .Route . COMPLEX 02/08/25 02/08/25 Unknown History Allergies Allergy/AdvReac Type Severity Reaction Status Date / Time metformin AdvReac Intermediate Unknown Verified 02/13/25 06:50 Review of Systems 2 Review of Systems: All systems reviewed & are unremarkable except as noted in HPI and below PMFSH Past Medical History Medical History (Updated 02/13/25 @ 09:50 by Misty Walter MD) CAD (coronary artery disease), autologous vein bypass graft CKD (chronic kidney disease) stage 3, GFR 30-59 ml/min Chronic obstructive pulmonary disease Hypertriglyceridemia Erectile dysfunction Vitamin D deficiency Tardive dyskinesia Suicide ideation With most recent hospitalization May 2024 Unspecified atherosclerosis of [place] arteries of extremities, bilateral legs Intravenous drug abuse in remission In remission since 1986 Posttraumatic stress disorder Kidney stones Pancreatitis Diverticulitis Obstructive sleep apnea Intolerant to CPAP Gastroesophageal reflux disease Postablative hypothyroidism Status post radioactive iodine ablation in 1974 Diabetic peripheral neuropathy Insulin dependent type 2 diabetes mellitus Coronary artery disease Hypertension (~2009) Anxiety Depression Recovering alcoholic quit drinking in 1987 Hyperlipidemia Surgical History Surgical History History of coronary artery stent placement History of cardiac catheterization History of inguinal hernia repair History of cholecystectomy History of coronary artery bypass graft x 1 (11/2009) History of cervical spinal surgery C4-C5 C6-C7 laminectomy and fusion Family History Family History Father Diabetes mellitus Heart disease Mother Heart disease Cerebrovascular accident Diabetes mellitus Dementia Unknown Hypertension Cancer Social History Social History (Updated 12/16/24 @ 00:55 by Maggie Fuentes DO) Social History: Surrogate medical decision maker: Brandon Schaefer, brother ([phone]). Code status: Full code. Smoking packs per day: 2 Smoking cigarettes per day: 40.0 Years smoked: 35 Smoking pack-years: 70.00 Smoking status: Former smoker Tobacco type: cigarettes Second hand tobacco smoke exposure: No Smoking end date: 06/28/09 Alcohol intake: former Alcohol use details: quit 1987 Substance use: former Substance use type: IV drugs Other substance usage details: Quit 1987 Last use: 1987 Lack of Transportation: YES Lack of Food: Sometimes True Current Housing: I Have Housing Concerned About Future Housing: YES Difficulty Paying Gas/Electric Bills: YES Difficulty Paying for Meds: YES Currently Unemployed: No Education: Associate Degree Difficulty w/ Childcare or Family Care: No Living arrangements: alone Additional living arrangements comments: low income apartment Occupation/Education: unemployed Additional occupation/education comments: Lost job in late April,. He is on disability due to his psychiatric illness. 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 Spiritual care concerns: No Agree to blood products: Yes Exam 2 Narrative: EXAMINATION OF ORGAN SYSTEMS/BODY AREAS: Constitutional: Vital signs per nursing GENERAL:No acute distress, non-toxic appearing. HEAD: Normal with no signs of head trauma. EYES: EOMI, conjunctiva normal ENT: Hearing grossly intact LUNGS: Nonlabored breathing. HEART: Regular rate and rhythm ABD: Soft, nontender to palpation EXT: Normal range of motion SKIN: No rashes or lesions. NEURO: Alert. No gross focal sensory or strength deficits. PSYCH: Normal affect Course Vital Signs Vital signs: Vital Signs Temperature 97.9 F 02/13/25 06:51 Pulse Rate 69 02/13/25 06:51 Respiratory Rate 20 02/13/25 06:51 Blood Pressure 148/87 H 02/13/25 06:51 Pulse Oximetry 98 02/13/25 06:51 Temperature 97.9 F 02/13/25 06:51 Pulse Rate 64 02/13/25 10:15 Respiratory Rate 19 02/13/25 10:15 Blood Pressure 163/88 H 02/13/25 10:15 Pulse Oximetry 100 02/13/25 10:15 MDM MDM Narrative Medical decision making narrative: Patient with history of diabetes, uncontrolled, presents here with high blood sugar sent here from preop. He is denying any complaints. Does admit to eating too many carbs, he does use long-acting insulin twice a day, but does not use short-acting even though he does have a prescription for it and is waiting for him at the pharmacy. Well-appearing here, glucose elevated, corrected sodium is normal, not in DKA. Urine without ketones or infection. He is given fluids and dose of insulin with repeat glucose improved. Patient and brother at bedside told to call his doctor today for close follow-up for insulin adjustment, and he start taking his insulin as prescribed. Discussed the importance of this as they may end up cancelling any future surgeries amongst other future complications if he does not keep his sugar under better control. Return precautions provided Differential Diagnosis Differential Diagnosis: DKA, hyperglycemia, etc. Lab Data 02/13/25 07:39 02/13/25 07:39 Labs: Lab Results 02/13/25 02/13/25 02/13/25 Range/Units 07:08 07:39 08:04 WBC 7.6 (4.5-10.0) K/mm3 RBC 4.53 L (4.6-6.20) M/mm3 Hgb 13.3 L (14.0-18.0) g/dL Hct 38.5 L (42.0-52.0) % MCV 85.0 (80-100) fl MCH 29.4 (26-34) pg MCHC 34.5 (32-36) g/dl RDW 13.5 (11.5-14.5) % Plt Count 184 (150-375) k/mm3 MPV 11.2 H (7.4-10.4) fl Immature Gran % (Auto) 0.5 (0-0.5) % Neut % (Auto) 69.0 (45.5-73.1) % Lymph % (Auto) 21.2 (18.3-44.2) % [place] % (Auto) 5.4 (2.6-8.5) % Eos % (Auto) 2.7 (0-4.4) % Baso % (Auto) 1.2 (0.2-1.2) % Lymph # (Auto) 1.62 (0.9-3.2) K/mm3 [place] # (Auto) 0.4 (0.1-0.6) K/mm3 Eos # (Auto) 0.2 (0-0.3) K/mm3 Baso # (Auto) 0.1 (0.0-0.1) K/mm3 Abs Immat Gran (auto) 0.04 H (0.00-0.031) K/mm3 Absolute Neuts (auto) 5.3 (1.3-6.7) K/mm3 Absolute Nucleated RBC 0.000 (0.0-0.012) K/mm3 Nucleated RBC % 0.0 (0.0-0.2) % Sodium 126 L (137-145) mmol/L Potassium 4.3 (3.4-5.0) mmol/L Chloride 95 L (98-107) mmol/L Carbon Dioxide 21 L (22-30) mmol/L Anion Gap 10 (4-12) mmol/L BUN 35 H (9-20) mg/dL Creatinine 1.39 H (0.7-1.3) mg/dL Estim Creat Clear Calc 58 ml/min Estimated GFR 51 L (59 - ) Glucose 597 H* (65-110) mg/dL POC Capillary Glucose > 500 H* (65-105) mg/dl Calcium 9.2 (8.4-10.2) mg/dL Total Bilirubin 0.8 (0.2-1.3) mg/dL AST 31 (17-59) U/L ALT 35 (6-50) U/L Alkaline Phosphatase 80 (38-126) U/L NT-Pro-B Natriuret Pep 49 (19.9-100) pg/mL Total Protein 7.7 (6.3-8.2) g/dL Albumin 4.3 (3.5-5.1) g/dL Urine Color Yellow (Yellow) Urine Appearance Clear (Clear) Urine pH 5.5 (5.0-9.0) Ur Specific [place] 1.032 (1.001-1.035) Urine Protein Trace (Negative) mg/dL Urine Glucose (UA) 3+ H (Negative) mg/dL Urine Ketones Negative (Negative) mg/dL Ur Blood (Man) 3+ H (Negative) Urine Nitrate Negative (Negative) Urine Bilirubin Negative (Negative) Urine Urobilinogen 0.2 (<2.0) mg/dL Leukocyte Esterase Rfl Negative (Negative) PEG/UL Urine RBC 21-50 H (0-2) /hpf Urine WBC 0-5 (0-3) /hpf Ur Squamous Epith Cells None seen (Few) /hpf Urine Bacteria None seen /hpf Urine Casts 0-2 02/13/25 Range/Units 09:29 WBC (4.5-10.0) K/mm3 RBC (4.6-6.20) M/mm3 Hgb (14.0-18.0) g/dL Hct (42.0-52.0) % MCV (80-100) fl MCH (26-34) pg MCHC (32-36) g/dl RDW (11.5-14.5) % Plt Count (150-375) k/mm3 MPV (7.4-10.4) fl Immature Gran % (Auto) (0-0.5) % Neut % (Auto) (45.5-73.1) % Lymph % (Auto) (18.3-44.2) % [place] % (Auto) (2.6-8.5) % Eos % (Auto) (0-4.4) % Baso % (Auto) (0.2-1.2) % Lymph # (Auto) (0.9-3.2) K/mm3 [place] # (Auto) (0.1-0.6) K/mm3 Eos # (Auto) (0-0.3) K/mm3 Baso # (Auto) (0.0-0.1) K/mm3 Abs Immat Gran (auto) (0.00-0.031) K/mm3 Absolute Neuts (auto) (1.3-6.7) K/mm3 Absolute Nucleated RBC (0.0-0.012) K/mm3 Nucleated RBC % (0.0-0.2) % Sodium (137-145) mmol/L Potassium (3.4-5.0) mmol/L Chloride (98-107) mmol/L Carbon Dioxide (22-30) mmol/L Anion Gap (4-12) mmol/L BUN (9-20) mg/dL Creatinine (0.7-1.3) mg/dL Estim Creat Clear Calc ml/min Estimated GFR (59 - ) Glucose (65-110) mg/dL POC Capillary Glucose 452 H (65-105) mg/dl Calcium (8.4-10.2) mg/dL Total Bilirubin (0.2-1.3) mg/dL AST (17-59) U/L ALT (6-50) U/L Alkaline Phosphatase (38-126) U/L NT-Pro-B Natriuret Pep (19.9-100) pg/mL Total Protein (6.3-8.2) g/dL Albumin (3.5-5.1) g/dL Urine Color (Yellow) Urine Appearance (Clear) Urine pH (5.0-9.0) Ur Specific [place] (1.001-1.035) Urine Protein (Negative) mg/dL Urine Glucose (UA) (Negative) mg/dL Urine Ketones (Negative) mg/dL Ur Blood (Man) (Negative) Urine Nitrate (Negative) Urine Bilirubin (Negative) Urine Urobilinogen (<2.0) mg/dL Leukocyte Esterase Rfl (Negative) PEG/UL Urine RBC (0-2) /hpf Urine WBC (0-3) /hpf Ur Squamous Epith Cells (Few) /hpf Urine Bacteria /hpf Urine Casts Discharge Plan Discharge Clinical Impression: Type 2 diabetes mellitus with hyperglycemia Qualifiers: Diabetes mellitus ocean transportation intermediary insulin use: with chcf use Qualified Code(s): E11.65 - Type 2 diabetes mellitus with hyperglycemia Patient Disposition: Home Condition: Stable Instructions: Diabetic Hyperglycemia (ED) Additional Instructions: Please start using your prescribed insulin today. Keep hydrated, make some dietary changes to ensure your blood sugar is controlled, call your PCP today to make sure your medications are up to date. You can return to the ER for any further issues. Patient Language: Chinese Prescriptions: No Action fluoxetine 40 mg capsule 40 mg PO DAILY Austedo 9 mg tablet 9 mg PO BID Rexulti 1 mg tablet 1 mg PO DAILY nitroglycerin 0.4 mg tablet, sublingual 0.4 mg sublingual Q5M PRN (Reason: Chest Pain) Qty: 100 0RF Rx Instructions: do not exceed 3 doses per episode (DME) Autopen 2 to 42 units Insulin Pen See Rx Instructions .Route Qty: 1 0RF Rx Instructions: glucose < 70 mg/dlFollow hypoglycemia order glucose 70-130 mg/dlNo additional insulin glucose 131-180 mg/dl 2 units sub-Q glucose 181-240 mg/dl 4 units sub-Q glucose 241-300 mg/dl 6 units sub-Q glucose 301-350 mg/dl 8 units sub-Q glucose 351 to 400 mg/dl 10 units above 400 call PCP duloxetine 30 mg capsule,delayed release(DR/EC) 30 mg PO DAILY duloxetine 60 mg capsule,delayed release(DR/EC) 60 mg PO DAILY trazodone 50 mg tablet 50 mg PO HS aspirin 81 mg tablet 81 mg PO DAILY omeprazole 40 mg capsule,delayed release(DR/EC) See Rx Instructions .ROUTE .COMPLEX Rx Instructions: Take 1 capsule by mouth once daily PM primidone 250 mg tablet See Rx Instructions .ROUTE .COMPLEX Rx Instructions: Take 1 tablet by mouth once daily in afternoon losartan 25 mg tablet See Rx Instructions .ROUTE .COMPLEX Rx Instructions: Take 1 tablet by mouth once daily in PM (DME) pen needle, diabetic 31 gauge x 5/16 needle See Rx Instructions .ROUTE .COMPLEX Qty: 100 3RF Dose Instruction: USE TWICE DAILY WITH LEVIMIR Rx Instructions: USE TWICE DAILY WITH LEVIMIR torsemide 20 mg tablet See Rx Instructions .ROUTE .COMPLEX Qty: 90 3RF Dose Instruction: Take 1 tablet by mouth once daily Rx Instructions: Take 1 tablet by mouth once daily rosuvastatin 40 mg tablet See Rx Instructions .ROUTE .COMPLEX Qty: 90 3RF Dose Instruction: Take 1 tablet by mouth once daily Patient Comments: PM Rx Instructions: Take 1 tablet by mouth once daily cholecalciferol (vitamin D3) 1,250 mcg (50,000 unit) capsule 1,250 mcg PO WEEKLY Qty: 12 1RF Mounjaro 15 mg/0.5 mL pen injector 15 mg subcut WEEKLY Qty: 2 6RF gabapentin 800 mg tablet See Rx Instructions .ROUTE .COMPLEX Qty: 270 3RF Dose Instruction: TAKE 1 TABLET BY MOUTH THREE TIMES DAILY Rx Instructions: TAKE 1 TABLET BY MOUTH THREE TIMES DAILY metoprolol succinate 25 mg tablet extended release 24 hr 12.5 mg PO DAILY Qty: 90 3RF Patient Comments: AFTERNOON insulin glargine [Lantus Solostar U-100 Insulin] 100 unit/mL (3 mL) insulin pen See Rx Instructions .ROUTE .COMPLEX Qty: 15 6RF Dose Instruction: INJECT 25 UNITS SUBCUTANEOUSLY TWICE A DAY Rx Instructions: INJECT 25 UNITS SUBCUTANEOUSLY TWICE A DAY levothyroxine 25 mcg tablet See Rx Instructions .ROUTE .COMPLEX Qty: 90 3RF Dose Instruction: TAKE 1 TABLET BY MOUTH DAILY Rx Instructions: TAKE 1 TABLET BY MOUTH DAILY levothyroxine 200 mcg tablet See Rx Instructions .ROUTE .COMPLEX Qty: 30 0RF Dose Instruction: TAKE 1 TABLET BY MOUTH DAILY TAKE WITH 25MCG Rx Instructions: TAKE 1 TABLET BY MOUTH DAILY TAKE WITH 25MCG Follow-up/Referrals: Doc Navarro MD [Physician, Urology] - 3 Days Michelle Drake APRN [Primary Care Provider, Family Practice]
[2025-02-13 08:23] LABS: NT Pro B Type Natriuretic Pept 49 pg/mL (19.9-100)
[2025-02-13] MEDS: LACTATED RINGERS 1,000 ML 999 ML IV CONT (08:24)
[2025-02-13] MEDS: INSULIN HUMAN REGULAR (*BKC) 100 UNITS/ML 10 UNITS IV PUSH (08:24)
[2025-02-13 08:27] VITALS: BP 142/93; PULSE 59; RESP 12; O2SAT 100
[2025-02-13 09:02] VITALS: BP 154/76; PULSE 66; RESP 14; O2SAT 100
--- NOTE | 2025-02-13 09:30 | PC.NURSE ---
Pt glucose 452, EDP aware, no new orders at this time
[2025-02-13 10:15] VITALS: BP 163/88; PULSE 64; RESP 19; O2SAT 100
== END 2025-02-13 10:35 | disposition home or self-care (01) ==
PROVIDERS: Emergency Provider Emergency Medicine; PCP Nurse Practitioner Adult Health
DX: E11.65 Type 2 diabetes mellitus with hyperglycemia (principal); I25.10 Atherosclerotic heart disease of native coronary artery without angina pectoris; E11.22 Type 2 diabetes mellitus with diabetic chronic kidney disease; I12.9 Hypertensive chronic kidney disease with stage 1 through stage 4 chronic kidney disease, or unspecified chronic kidney disease; N18.30 Chronic kidney disease, stage 3 unspecified; J44.9 Chronic obstructive pulmonary disease, unspecified; E78.1 Pure hyperglyceridemia; E78.5 Hyperlipidemia, unspecified; E55.9 Vitamin D deficiency, unspecified; E11.42 Type 2 diabetes mellitus with diabetic polyneuropathy; K21.9 Gastro-esophageal reflux disease without esophagitis; G24.01 Drug induced subacute dyskinesia; G47.33 Obstructive sleep apnea (adult) (pediatric); E89.0 Postprocedural hypothyroidism; F41.9 Anxiety disorder, unspecified; F43.10 Post-traumatic stress disorder, unspecified; F32.A Depression, unspecified; Z98.1 Arthrodesis status; Z95.5 Presence of coronary angioplasty implant and graft; Z95.1 Presence of aortocoronary bypass graft; Z87.442 Personal history of urinary calculi; Z87.891 Personal history of nicotine dependence; Z90.49 Acquired absence of other specified parts of digestive tract; Z79.899 Other long term (current) drug therapy; Z79.4 Long term (current) use of insulin; Z79.82 Long term (current) use of aspirin; Z79.85 Long-term (current) use of injectable non-insulin antidiabetic drugs
CPT/HCPCS: 36415; 80053; 81001; 82948; 83880; 85025; 96361; 96374; 99284; J1815; J7120